=== PATIENT | male | born 1965 | race Hispanic/Latino ===

== ENCOUNTER 2016-11-17 11:47 | Inpatient (IN) | payer MEDICARE, MEDICAID ==
[2016-11-17] MEDS ORDERED: Piperacillin/Tazobact 3.375 gm 100 ML IVPB STA (12:06)
[2016-11-17] MEDS ORDERED: Vancomycin 1gm in NS 250ml 1 GM/250 ML BAG IVPB STA (12:06)
--- NOTE | 2016-11-17 12:09 | ED PDOC ---
Arrival/HPI - General Chief Complaint: Lower Extremity Problem/Injury Time Seen by Provider: 11/17/16 11:48 Historian: Patient - History of Present Illness Narrative History of Present Illness (Text): 11/17/16 12:00 Andrew Bonilla is a 50 year old male, whose past medical history includes psoriasis and crohn's disease, present to the emergency department complaining of a wound on the posterior of his right leg. Patient reports he noticed the wound yesterday. Patient denies fall, trauma, chest pain, fever, shortness of breath, or other complaints. PMD: Dr. 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) Other/Comment: slight speech impediment - Renal Hx Renal Disorder: No - Endocrine/Metabolic Hx Endocrine Disorders: No - Hematological/Oncological Hx Blood Disorders: Yes Other/Comment: hypogammaglobuanemia - Integumentary Hx Dermatological Disorder: Yes Hx Psoriasis: Yes - Musculoskeletal/Rheumatological Hx Musculoskeletal Disorders: Yes Hx Arthritis: No Hx Falls: No Hx Unsteady Gait: Yes (walker) - Gastrointestinal Hx Gastrointestinal Disorders: Yes Hx Colostomy: Yes Hx Crohn's Disease: Yes (dx at 15 yrs old) - Genitourinary/Gynecological Hx Genitourinary Disorders: No - Psychiatric Hx Psychophysiologic Disorder: Yes Hx Depression: Yes Hx Substance Use: No - Surgical History Other/Comment: Colonoscopy, Right chest wall port placement, colostomy - Anesthesia Hx Anesthesia: Yes - Suicidal Assessment Feels Threatened In Home Enviroment: No Family/Social History - Physician Review Nursing Documentation Reviewed: Yes Family/Social History: Unknown Family HX Smoking Status: Former Smoker Hx Alcohol Use: No Hx Substance Use: No Allergies/Home Meds Allergies/Adverse Reactions: Allergies homeopathic substance (from Rosario) Allergy (Intermediate, Uncoded 11/17/16 15: 26) [facility] SOAP Allergy (Uncoded 11/17/16 15:26) RASH Home Medications: Home Meds Medication Instructions Recorded Confirmed Amitriptyline HCl [Amitriptyline 10 mg PO HS 07/15/11 11/17/16 HCl] Bupropion HCl [Bupropion HCl Xl] 150 mg PO DAILY 07/15/11 11/17/16 QUEtiapine [SEROquel XR] 200 mg PO HS 07/15/11 11/17/16 Magnesium Oxide [Mag-Ox] 400 mg PO DAILY 09/18/13 11/17/16 Potassium Chloride [K-Dur 20] 0 meq PO .UNK 09/30/15 11/17/16 Mesalamine ER Cap [Pentasa] 500 mg PO QID 11/17/16 11/17/16 Ranitidine HCl [Ranitidine HCl] 150 mg PO BID 11/17/16 11/17/16 Review of Systems - Review of Systems Constitutional: absent: Fevers Respiratory: absent: SOB Cardiovascular: absent: Chest Pain Gastrointestinal: absent: Abdominal Pain, Vomiting Skin: Other (wound on posterior right leg) Physical Exam Vital Signs Reviewed: Yes Vital Signs Temp Pulse Resp BP Pulse Ox 11/17/16 14:32 94 H 18 118/76 100 11/17/16 11:59 98.8 F 78 16 116/77 100 Temperature: Afebrile Blood Pressure: Normal Pulse: Regular Respiratory Rate: Normal Appearance: Positive for: Well-Appearing, Non-Toxic, Comfortable Pain Distress: None Mental Status: Positive for: Alert and Oriented X 3 - Systems Exam Head: Present: Atraumatic, Normocephalic Pupils: Present: PERRL Extroacular Muscles: Present: EOMI Conjunctiva: Present: Normal Respiratory/Chest: Present: Clear to Auscultation, Good Air Exchange. No: Respiratory Distress, Accessory Muscle Use Cardiovascular: Present: Regular Rate and Rhythm, Normal S1, S2. No: Murmurs Abdomen: Present: Normal Bowel Sounds. No: Tenderness, Distention, Peritoneal Signs Lower Extremity: Present: Normal Inspection Neurological: Present: GCS=15, CN II-XII Intact, Speech Normal Skin: Present: Warm, Dry, Normal Color, Erythematous (around wound posterior right leg), Other (2cm necrotic wound and sorrounding erythema on posterior right leg). No: Rashes Psychiatric: Present: Alert, Oriented x 3, Normal Insight, Normal Concentration Medical Decision Making ED Course and Treatment: 11/17/16 12:50 X-ray Tibia/Fibula: Creator: Juana Sal FINDINGS: BONES: No fracture or destructive lesion. No periosteal reaction. JOINT SPACES: Unremarkable. OTHER FINDINGS: No subcutaneous gas noted. The specific site of patient's right leg wound is not known IMPRESSION: Unremarkable radiographs of the right tibia and fibula. - Lab Interpretations Microbiology Results: Microbiology Results 11/17/16 12:50 Blood S.aureus & Coag-Neg Staph PNA FISH - Final 11/17/16 12:50 Blood Blood Culture - Preliminary Gram Positive Cocci 11/17/16 12:50 Blood Gram Stain - Final Lab Results: 11/17/16 12:56 11/17/16 12:56 Lab Results 11/17/16 12:56: Hemoglobin A1c 5.6 11/17/16 12:56: Sodium 141, Potassium 4.2, Chloride 105, Carbon Dioxide 26, Anion Gap 14, BUN 14, Creatinine 1.0, Est GFR ( Amer) > 60, Est GFR (Non- Af Amer) > 60, Random Glucose 102, Calcium 8.8, Total Bilirubin 0.8, AST 41, ALT 37, Alkaline Phosphatase 79, Total Protein 7.3, Albumin 4.1, Globulin 3.2, Albumin/Globulin Ratio 1.3 11/17/16 12:56: PT 11.7, INR 1.08, APTT 62.0 H 11/17/16 12:56: WBC 6.0, RBC 4.23, Hgb 13.2 L, Hct 37.6 L, MCV 88.9, MCH 31.2, MCHC 35.1, RDW 13.2, Plt Count 137, MPV 10.5, Gran % 70.9 H, Lymph % (Auto) 19.1 L, Union % (Auto) 7.9 H, Eos % (Auto) 1.8, Baso % (Auto) 0.3, Gran # 4.22, Lymph # 1.1 L, Union # 0.5, Eos # 0.1, Baso # 0.02 I have reviewed the lab results: Yes - RAD Interpretation Radiology Orders: 11/17/16 12:06 TIBIA FIBULA RIGHT [RAD] Stat Call Worker Person: Radiologist - Medication Orders Current Medication Orders: Acetaminophen (Tylenol 325mg Tab) 650 mg PO Q4H PRN PRN Reason: Pain, Mild (1-3) Last Admin: 10/05/17 06:42 Dose: 650 mg MAR Pain/Vitals Document 11/18/16 06:42 PCO (Rec: 11/18/16 06:43 PCO [place] [id number]) Pain Reassessment Is This A Pain ReAssessment? No Sleep Is patient sleeping during reassessment? No Presence of Pain Presence of Pain No Vitals Temperature (97.6 F-99.6 F) 100.3 F Temperature Source Oral Amitriptyline HCl (Elavil) 10 mg PO HS SANTINO Last Admin: 11/17/16 22:23 Dose: 10 mg Bupropion HCl (Wellbutrin Xl) 150 mg PO DAILY SANTINO Last Admin: 11/18/16 10:16 Dose: 150 mg Famotidine (Pepcid) 20 mg PO 1000,2200 SANTINO Vancomycin HCl (Vancomycin 1gm) 1 gm in 250 mls @ 167 mls/hr IVPB Q12H SANTINO PRN Reason: Protocol Stop: 12/16/16 13:46 Last Admin: 11/18/16 14:25 Dose: 167 mls/hr eMAR Start Stop Document 11/18/16 14:25 AJ (Rec: 11/18/16 14:25 [place] [facility] [id number] Intravenous Solution Start Date 11/18/16 Start Time 14:25 Mesalamine (Pentasa) 500 mg PO QID SANTINO Last Admin: 11/18/16 14:25 Dose: 500 mg Quetiapine Fumarate (Seroquel Xr) 200 mg PO HS SANTINO PRN Reason: Protocol Last Admin: 11/17/16 21:45 Dose: 200 mg Behavioural Document 11/17/16 21:45 PCO (Rec: 11/17/16 21:45 PCO [facility] [id number] Maintenance Maintenance Dose Yes Nonmedicinal Nonmedicinal Interventions Redirect Behavior Behavior for Medication: Anxiety Re-Assess: Reassess Psych Meds Document 11/17/16 22:45 PCO (Rec: 11/18/16 06:31 PCO [place] [id number]) Reassess Psych Med Effective Tramadol HCl (Ultram) 50 mg PO TID PRN PRN Reason: Pain, moderate (4-7) Last Admin: 11/17/16 21:44 Dose: 50 mg MAR Pain Assessment Document 11/17/16 21:44 PCO (Rec: 11/17/16 21:45 PCO [facility] [id number] Pain Reassessment Is this a pain reassessment? No Sleep Is patient sleeping during reassessment? No Presence of Pain Presence of Pain Yes Pain Scale Used Pain Scale Used Numeric Location Left, Right or Bilateral Right Pain Location Body Site Leg Description Description Intermittent Intensity of Pain at present 7 Acceptable Level of Pain 0/10 Radiation Location no Variations/Patterns sharp at times Pain Behavior Facial Grimacing Aggravating Factors Exercise/Activity Alleviating Factors/Management Medication Techniques Relaxation Techniques Inactivity Alleviating Factors Inactivity Effects of Pain can't concentrate Triamcinolone Acetonide (Triamcinolone 0.25% Oint) 0 gm TOP BID SANTINO Last Admin: 11/18/16 10:14 Dose: 1 applic Discontinued Medications Vancomycin HCl (Vancomycin 1gm) 1 gm in 250 mls @ 167 mls/hr IVPB STAT STA PRN Reason: Protocol Stop: 11/17/16 13:35 Last Admin: 11/17/16 14:15 Dose: 167 mls/hr eMAR Start Stop Document 11/17/16 14:15 GMD (Rec: 11/17/16 14:16 GMD [facility] [id number] Intravenous Solution Start Date 11/17/16 Start Time 14:16 End Date 11/17/16 End time 15:46 Total Infusion Time 90 Piperacillin Sod/Tazobactam Sod (Zosyn 3.375 In Ns 100ml) 100 mls @ 200 mls/hr IVPB STAT STA PRN Reason: Protocol Stop: 11/17/16 12:35 Last Admin: 11/17/16 13:28 Dose: 200 mls/hr eMAR Start Stop Document 11/17/16 13:28 GMD (Rec: 11/17/16 13:28 GMD [facility] [id number] Intravenous Solution Start Date 11/17/16 Start Time 13:28 End Date 11/17/16 End time 13:58 Total Infusion Time 30 Vancomycin HCl (Vancomycin 1gm) 1 gm in 250 mls @ 167 mls/hr IVPB DAILY SANTINO PRN Reason: Protocol Last Admin: 11/18/16 10:15 Dose: 167 mls/hr eMAR Start Stop Document 11/18/16 10:15 AJ (Rec: 11/18/16 10:15 AJ [id number]) Intravenous Solution Start Date 10/05/17 Start Time 10:15 Piperacillin Sod/Tazobactam Sod (Zosyn 3.375 In Ns 100ml) 100 mls @ 200 mls/hr IVPB Q6 SANTINO PRN Reason: Protocol Stop: 11/18/16 00:29 Last Admin: 11/17/16 23:52 Dose: 200 mls/hr eMAR Start Stop Document 11/17/16 23:52 PCO (Rec: 11/17/16 23:53 PCO [facility] [id number]) Intravenous Solution Start Date 11/17/16 Start Time 23:52 End Date 11/18/16 End time 00:55 Total Infusion Time 63 Pneumococcal Polyvalent Vaccine (Pneumovax 23 Vaccine) 0.5 ml IM .ONCE ONE Stop: 11/17/16 19:00 - Scribe Statement The provider has reviewed the documentation as recorded by the Ritika Simon Provider Scribe Attestation: All medical record entries made by the Scribe were at my direction and personally dictated by me. I have reviewed the chart and agree that the record accurately reflects my personal performance of the history, physical exam, medical decision making, and the department course for this patient. I have also personally directed, reviewed, and agree with the discharge instructions and disposition. Disposition/Present on Arrival - Present on Arrival Any Indicators Present on Arrival: No History of DVT/PE: No History of Uncontrolled Diabetes: No Urinary Catheter: No History of Decub. Ulcer: No History Surgical Site Infection Following: None - Disposition Have Diagnosis and Disposition been Completed?: Yes Diagnosis: Cellulitis, Leg ulcer Disposition: HOSPITALIZED Disposition Time: 05:00 Condition: STABLE
--- NOTE | 2016-11-17 12:47 | RAD ---
PROCEDURE: Radiographs of the right tibia and fibula. HISTORY: leg wound COMPARISON: None available. TECHNIQUE: Frontal and lateral views obtained. FINDINGS: BONES: No fracture or destructive lesion. No periosteal reaction. JOINT SPACES: Unremarkable. OTHER FINDINGS: No subcutaneous gas noted. The specific site of patient's right leg wound is not known IMPRESSION: Unremarkable radiographs of the right tibia and fibula.
[2016-11-17 13:01] LABS: BASO # 0.02 K/mm3 (0.0-2.0); BASO % 0.3 % (0.0-3.0); EOS # 0.1 (0.0-0.7); EOS % 1.8 % (1.5-5.0); GRAN # 4.22 (1.4-6.5); GRAN % 70.9 % (50.0-68.0); HEMATOCRIT 37.6 % (42.0-52.0); LYMPH # 1.1 (1.2-3.4); LYMPH % 19.1 % (22.0-35.0); MEAN CELL VOLUME 88.9 fl (80.0-105.0); MEAN CORPUSCULAR HEMOGLOBIN 31.2 pg (25.0-35.0); MEAN CORPUSCULAR HGB CONC 35.1 g/dl (31.0-37.0); MEAN PLATELET VOLUME 10.5 fl (7.0-11.0); MONO # 0.5 (0.1-0.6); MONO % 7.9 % (1.0-6.0); RED CELL DISTRIBUTION WIDTH 13.2 % (11.5-14.5)
[2016-11-17 13:11] LABS: ALB/GLOB RATIO 1.3 (1.1-1.8); ALKALINE PHOSPHATASE 79 U/L (38-126); ALT/SGPT 37 U/L (7-56); AST/SGOT 41 U/L (17-59); BILIRUBIN,TOTAL 0.8 mg/dL (0.2-1.3); BLOOD UREA NITROGEN 14 mg/dL (7-21); CALCIUM 8.8 mg/dL (8.4-10.5); CARBON DIOXIDE 26 mmol/L (21-33); CHLORIDE 105 mmol/L (98-107); GFR AFRICAN-AMERICAN > 60; GLUCOSE,RANDOM 102 mg/dL (70-110); POTASSIUM 4.2 mmol/L (3.6-5.0); SODIUM 141 mmol/L (132-148); TOTAL PROTEIN 7.3 g/dL (5.8-8.3)
[2016-11-17 13:40] LABS: INR 1.08 (0.93-1.08)
--- NOTE | 2016-11-17 15:51 | CP.PCM.HP ---
History of Present Illness - History of Present Illness History of Present Illness: cc: right leg wound HPI: Patient is a 50yo male with past medical history of Crohn's disease s/p colostomy, Susac syndrome treated with IVIG, Psoriasis and hypogammaglobulinemia that presents c/o right lower extremity wound. He reports first noticing the wound 3 days prior and denied any known trauma to the area. He denied trying any over the counter medications for the wound. He reported that the wound is tender to touch. Denied chest pain, palpitations, SOB, abdominal pain, nausea, vomiting, fever, chills, cough. 12point ROS as per HPI above, otherwise negative PMHx: Susac syndrome, cerebral vasculitis, depression, Crohn's disease s/p colostomy, psoriasis and hypogammaglobulinemia PSHx: colectomy Allergy: rosario: rash, italian spring soap Medications: Reviewed and as per EMR Family Hx: Reviewed, noncontributory Social Hx: Former smoker, quit ~5 years ago, denies alcohol and illicit drug use ; Unemployed Present on Admission - Present on Admission Any Indicators Present on Admission: No Past Patient History - Past Social History Smoking Status: Former Smoker - CARDIAC Hx Cardiac Disorders: Yes Hx Peripheral Edema: Yes - PULMONARY Hx Respiratory Disorders: No - NEUROLOGICAL Other/Comment: susac syndrom dx 11 yrs ago, cerebral vasculitis - HEENT Hx HEENT Problems: Yes 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) Other/Comment: slight speech impediment - RENAL Hx Chronic Kidney Disease: No - ENDOCRINE/METABOLIC Hx Endocrine Disorders: No - HEMATOLOGICAL/ONCOLOGICAL Hx Blood Disorders: Yes Other/Comment: hypogammaglobuanemia - INTEGUMENTARY Hx Dermatological Problems: Yes Hx Psoriasis: Yes - MUSCULOSKELETAL/RHEUMATOLOGICAL Hx Musculoskeletal Disorders: Yes Hx Arthritis: No Hx Falls: No Hx Unsteady Gait: Yes (walker) - GASTROINTESTINAL Hx Gastrointestinal Disorders: Yes Hx Colostomy: Yes Hx Crohn's Disease: Yes (dx at 15 yrs old) - GENITOURINARY/GYNECOLOGICAL Hx Genitourinary Disorders: No - PSYCHIATRIC Hx Psychophysiologic Disorder: Yes Hx Depression: Yes Hx Substance Use: No - SURGICAL HISTORY Other/Comment: Colonoscopy, Right chest wall port placement, colostomy - ANESTHESIA Hx Anesthesia: Yes Meds Allergies/Adverse Reactions: Allergies Allergy/AdvReac Type Severity Reaction Status Date / Time homeopathic substance (from Allergy Intermediate RASH Uncoded 11/17/16 15:26 Rosario) [facility] SOAP Allergy RASH Uncoded 11/17/16 15:26 Physical Exam - Constitutional Appears: No Acute Distress, Unkempt - Head Exam Head Exam: ATRAUMATIC, NORMAL INSPECTION, NORMOCEPHALIC - Eye Exam Eye Exam: EOMI, PERRL - ENT Exam ENT Exam: Mucous Membranes Moist - Neck Exam Neck exam: Positive for: Normal Inspection - Respiratory Exam Respiratory Exam: Clear to Auscultation Bilateral. absent: Rales, Rhonchi, Wheezes - Cardiovascular Exam Cardiovascular Exam: RRR, +S1, +S2. absent: Gallop, JVD, Rubs, Systolic Murmur - GI/Abdominal Exam GI & Abdominal Exam: Soft. absent: Distended, Firm, Guarding, Rebound, Tenderness - Extremities Exam Additional comments: right posterior lower extremity eschar - Neurological Exam Neurological exam: Alert, CN II-XII Intact, Oriented x3 - Psychiatric Exam Psychiatric exam: Normal Affect, Normal Mood - Skin Skin Exam: Dry, Intact, Normal Color, Warm Results - Vital Signs Recent Vital Signs: Last Vital Signs Temp 98.8 F 11/17/16 11:59 Pulse 94 H 11/17/16 14:32 Resp 18 11/17/16 14:32 BP 118/76 11/17/16 14:32 Pulse Ox 100 11/17/16 14:32 - Labs Result Diagrams: 11/17/16 12:56 11/17/16 12:56 Assessment & Plan - Assessment and Plan (Free Text) Plan: 50yo male with history of Crohn's disease, Psoriasis, Susac syndrome, cerebral vasculitis and depression presents c/o right lower extremity wound 1. Right lower extremity wound -Blood and wound cultures pending -afebrile, no leukocytosis -Currently on Vancomycin and Zosyn for broad spectrum coverage pending cultures -A1C pending -Tibia/fibula xray negative; see full report -ID (Dr. Clay) and Surgery (Dr. Hinkle) consulted 2. Crohn's disease -Continue with Pentasa 3. Susac syndrome -Patient follows up with Dr. López for IVIG treatment 4. Depression -Continue home seroquel, buproprion and amitriptyline Patient seen and case discussed with attending, Dr. López - Date & Time Date: 11/17/16 Time: 15:56
--- NOTE | 2016-11-17 17:01 | CP.PCM.CON ---
History of Present Illness - History of Present Illness History of Present Illness: Surgery Consult Note for Dr. Yoo (covering Dr. Hinkle) Consulted for Infected Leg Ulcer HPI: Patient is a 50M who presents with a 3cm x 3cm ulcer on the RLE. He noticed it 3 days ago. He has been complain of pain on and around the wound. He states it began as a red bleeding ulcer that progressed to a black eschar. Describes the pain as sharp. Pain has been continuous since its onset. Currently the wound has a eshar overlying it making it unstagable. PMH: Susac syndrome, cerebral vasculitis, depression, Crohn's disease, psoriasis and hypogammaglobulinemia PSH: Multiple colon resections for Crohns with colostomy. 2 port placement R/L subclavian. Only R subclavian port is currently placed FH: Diabtetes in the father SH: 1ppd smoker for 5 years, quit 2 years ago, Former drinker in the distant past, no illegal drug use Meds: See MAR Allergies: None Review of Systems - Constitutional Constitutional: As Per HPI - EENT Eyes: As Per HPI Ears: As Per HPI Nose/Mouth/Throat: As Per HPI - Cardiovascular Cardiovascular: As Per HPI - Respiratory Respiratory: As Per HPI - Gastrointestinal Gastrointestinal: As Per HPI - Genitourinary Genitourinary: As Per HPI - Reproductive: Male Reproductive:Male: As Per HPI - Musculoskeletal Musculoskeletal: As Per HPI - Integumentary Integumentary: As Per HPI - Neurological Neurological: As Per HPI - Psychiatric Psychiatric: As Per HPI - Endocrine Endocrine: As Per HPI - Hematologic/Lymphatic Hematologic: As Per HPI Past Patient History - Past Social History Smoking Status: Former Smoker - CARDIAC Hx Cardiac Disorders: Yes Hx Peripheral Edema: Yes - PULMONARY Hx Respiratory Disorders: No - NEUROLOGICAL Other/Comment: susac syndrom dx 11 yrs ago, cerebral vasculitis - HEENT Hx HEENT Problems: Yes 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) Other/Comment: slight speech impediment - RENAL Hx Chronic Kidney Disease: No - ENDOCRINE/METABOLIC Hx Endocrine Disorders: No - HEMATOLOGICAL/ONCOLOGICAL Hx Blood Disorders: Yes Other/Comment: hypogammaglobuanemia - INTEGUMENTARY Hx Dermatological Problems: Yes Hx Psoriasis: Yes - MUSCULOSKELETAL/RHEUMATOLOGICAL Hx Musculoskeletal Disorders: Yes Hx Arthritis: No Hx Falls: No Hx Unsteady Gait: Yes (walker) - GASTROINTESTINAL Hx Gastrointestinal Disorders: Yes Hx Colostomy: Yes Hx Crohn's Disease: Yes (dx at 15 yrs old) - GENITOURINARY/GYNECOLOGICAL Hx Genitourinary Disorders: No - PSYCHIATRIC Hx Psychophysiologic Disorder: Yes Hx Depression: Yes Hx Substance Use: No - SURGICAL HISTORY Other/Comment: Colonoscopy, Right chest wall port placement, colostomy - ANESTHESIA Hx Anesthesia: Yes Meds Allergies/Adverse Reactions: Allergies Allergy/AdvReac Type Severity Reaction Status Date / Time homeopathic substance (from Allergy Intermediate RASH Uncoded 11/17/16 15:26 Rosario) [facility] SOAP Allergy RASH Uncoded 11/17/16 15:26 - Medications Medications: Current Medications Amitriptyline HCl (Elavil) 10 mg PO HS SANTINO Bupropion HCl (Wellbutrin Xl) 150 mg PO DAILY SANTINO Vancomycin HCl (Vancomycin 1gm) 1 gm in 250 mls @ 167 mls/hr IVPB DAILY SANTINO PRN Reason: Protocol Piperacillin Sod/Tazobactam Sod (Zosyn 3.375 In Ns 100ml) 100 mls @ 200 mls/hr IVPB Q6 SANTINO PRN Reason: Protocol Stop: 11/18/16 00:29 Mesalamine (Pentasa) 500 mg PO QID SANTINO Quetiapine Fumarate (Seroquel Xr) 200 mg PO HS SANTINO PRN Reason: Protocol Physical Exam - Constitutional Appears: Non-toxic, No Acute Distress - Head Exam Head Exam: ATRAUMATIC, NORMAL INSPECTION, NORMOCEPHALIC - Eye Exam Eye Exam: EOMI Pupil Exam: NORMAL ACCOMODATION - ENT Exam ENT Exam: Mucous Membranes Moist Additional comments: hearing aids - Neck Exam Neck exam: Positive for: Normal Inspection - Respiratory Exam Respiratory Exam: Clear to Auscultation Bilateral, Wheezes, NORMAL BREATHING PATTERN - Cardiovascular Exam Cardiovascular Exam: REGULAR RHYTHM - GI/Abdominal Exam GI & Abdominal Exam: Normal Bowel Sounds, Soft. absent: Distended, Tenderness Additional comments: RLQ coolostomy, Midline incision - Extremities Exam Extremities exam: Positive for: tenderness. Negative for: joint swelling Additional comments: 3cm x 3cm RLE wound with Eschar and surrounding erythema and warmth - Neurological Exam Neurological exam: Alert, Oriented x3 - Psychiatric Exam Psychiatric exam: Normal Affect, Normal Mood - Skin Skin Exam: Dry, Normal Color, Warm Additional comments: multiple psoriatic patches Results - Vital Signs Recent Vital Signs: Last Vital Signs Temp 98.2 F 11/17/16 16:12 Pulse 64 11/17/16 16:12 Resp 20 11/17/16 16:12 BP 165/59 H 11/17/16 16:12 Pulse Ox 97 11/17/16 16:12 - Labs Result Diagrams: 11/17/16 12:56 11/17/16 12:56 Assessment & Plan - Assessment and Plan (Free Text) Assessment: 50M with a RLE wound Plan: * santyl QD * Antibiotic management per primary team * Further reccs per Dr. Fredo Nance PGY1 - Date & Time Date: 11/17/16 Time: 17:11
[2016-11-17] MEDS: Mesalamine ER Cap 500 MG PO SCH ×2 (17:18→22:23)
[2016-11-17] MEDS: Piperacillin/Tazobact 3.375 gm 100 ML IVPB SCH ×2 (17:19→23:52)
[2016-11-17 18:59] VITALS: BMI 25.8
[2016-11-17] MEDS ORDERED: Pneumococcal 23-Valent Vaccine IM ONE (18:59)
[2016-11-17] MEDS: QUEtiapine 200 mg XR Tab PO SCH (21:45)
[2016-11-17] MEDS: Triamcinolone 0.025% Oint(15 gm) TOP SCH (22:24)
[2016-11-18 07:12] LABS: BASO # 0.01 K/mm3 (0.0-2.0); BASO % 0.2 % (0.0-3.0); EOS # 0.1 (0.0-0.7); EOS % 1.5 % (1.5-5.0); GRAN # 3.24 (1.4-6.5); GRAN % 79.1 % (50.0-68.0); HEMATOCRIT 38.2 % (42.0-52.0); LYMPH # 0.4 (1.2-3.4); LYMPH % 10.2 % (22.0-35.0); MEAN CELL VOLUME 89.7 fl (80.0-105.0); MEAN CORPUSCULAR HEMOGLOBIN 30.3 pg (25.0-35.0); MEAN CORPUSCULAR HGB CONC 33.8 g/dl (31.0-37.0); MEAN PLATELET VOLUME 10.2 fl (7.0-11.0); MONO # 0.4 (0.1-0.6); RED CELL DISTRIBUTION WIDTH 13.4 % (11.5-14.5); WHITE BLOOD COUNT 4.1 10^3/ul (4.5-11.0)
[2016-11-18 07:29] LABS: ALB/GLOB RATIO 1.3 (1.1-1.8); ALKALINE PHOSPHATASE 69 U/L (38-126); ALT/SGPT 34 U/L (7-56); AST/SGOT 37 U/L (17-59); BILIRUBIN,TOTAL 1.3 mg/dL (0.2-1.3); BLOOD UREA NITROGEN 15 mg/dL (7-21); CALCIUM 8.8 mg/dL (8.4-10.5); CARBON DIOXIDE 25 mmol/L (21-33); CHLORIDE 102 mmol/L (98-107); GFR AFRICAN-AMERICAN > 60; GLUCOSE,RANDOM 92 mg/dL (70-110); SODIUM 139 mmol/L (132-148); TOTAL PROTEIN 6.9 g/dL (5.8-8.3)
[2016-11-18 09:14] LABS: URINE BILIRUBIN NEGATIVE (NEGATIVE); URINE BLOOD TRACE-INTACT (NEGATIVE); URINE GLUCOSE (UA) NEGATIVE (NEGATIVE); URINE KETONE NEGATIVE (NEGATIVE); URINE LEUKOCYTE ESTERASE NEGATIVE Leu/uL (NEGATIVE); URINE PROTEIN NEGATIVE mg/dL (<30 mg/dL); URINE UROBILINOGEN 0.2 E.U./dL (<1 E.U./dL)
[2016-11-18 09:22] LABS: URINE APPEARANCE CLEAR (CLEAR); URINE COLOR YELLOW (YELLOW)
[2016-11-18 09:24] LABS: URINE RBC 0 - 2 /hpf (0-2); URINE WBC NEGATIVE /hpf (0-6)
[2016-11-18] MEDS ORDERED: Vancomycin 1gm in NS 250ml 1 GM/250 ML BAG IVPB SCH (10:00)
[2016-11-18] MEDS: Mesalamine ER Cap 500 MG PO SCH ×4 (10:14→22:08)
[2016-11-18] MEDS: Triamcinolone 0.025% Oint(15 gm) TOP SCH ×2 (10:14→17:24)
[2016-11-18] MEDS: buPROPion 150 mg/24 Hours XL Tab PO SCH (10:16)
--- NOTE | 2016-11-18 10:38 | CP.PCM.PN ---
Subjective - Date & Time of Evaluation Date of Evaluation: 11/18/16 Time of Evaluation: 10:35 - Subjective Subjective: Surgery Progress Note for Dr. Yoo (covering Dr. Hinkle) HPI: Patient seen and examined at bedside. Doing well with no complaints at this time. There was a scab on the wound yesterday that was pulled off and dressed. Denies any nausea, vomiting, diarrhea, Fever, chills Objective - Vital Signs/Intake and Output Vital Signs (last 24 hours): Temp Pulse Resp BP Pulse Ox 100.3 F H 105 H 20 122/74 96 11/18/16 08:00 11/18/16 08:00 11/18/16 08:00 11/18/16 08:00 11/18/16 08:00 Intake and Output: 11/18/16 11/18/16 06:59 18:59 Intake Total 720 Balance 720 - Medications Medications: Current Medications Acetaminophen (Tylenol 325mg Tab) 650 mg PO Q4H PRN PRN Reason: Pain, Mild (1-3) Last Admin: 11/18/16 06:42 Dose: 650 mg Amitriptyline HCl (Elavil) 10 mg PO HS [facility] Last Admin: 11/17/16 22:23 Dose: 10 mg Bupropion HCl (Wellbutrin Xl) 150 mg PO DAILY [facility] Last Admin: 11/18/16 10:16 Dose: 150 mg Vancomycin HCl (Vancomycin 1gm) 1 gm in 250 mls @ 167 mls/hr IVPB DAILY SANTINO PRN Reason: Protocol Last Admin: 11/18/16 10:15 Dose: 167 mls/hr Mesalamine (Pentasa) 500 mg PO QID [facility] Last Admin: 11/18/16 10:14 Dose: 500 mg Quetiapine Fumarate (Seroquel Xr) 200 mg PO HS [facility] PRN Reason: Protocol Last Admin: 11/17/16 21:45 Dose: 200 mg Tramadol HCl (Ultram) 50 mg PO TID PRN PRN Reason: Pain, moderate (4-7) Last Admin: 11/17/16 21:44 Dose: 50 mg Triamcinolone Acetonide (Triamcinolone 0.25% Oint) 0 gm TOP BID [facility] Last Admin: 11/18/16 10:14 Dose: 1 applic - Labs Labs: 11/18/16 06:30 11/18/16 06:30 PT 11.7 Seconds (9.9-11.8) 11/17/16 12:56 INR 1.08 (0.93-1.08) 11/17/16 12:56 APTT 62.0 Seconds (23.7-30.8) H 11/17/16 12:56 - Constitutional Appears: Non-toxic - Head Exam Head Exam: ATRAUMATIC, NORMAL INSPECTION, NORMOCEPHALIC - Eye Exam Eye Exam: EOMI Pupil Exam: NORMAL ACCOMODATION - ENT Exam ENT Exam: Mucous Membranes Moist - Respiratory Exam Respiratory Exam: Clear to Ausculation Bilateral, NORMAL BREATHING PATTERN - Cardiovascular Exam Cardiovascular Exam: REGULAR RHYTHM - GI/Abdominal Exam GI & Abdominal Exam: Soft, Normal Bowel Sounds. absent: Distended, Tenderness Additional comments: colosotmy - Extremities Exam Extremities Exam: Tenderness (tenderness around RLE ulcer, erythema still present with increased warmth, dressing clean dry and intact). absent: Joint Swelling - Back Exam Back Exam: absent: CVA tenderness (L), CVA tenderness (R) - Neurological Exam Neurological Exam: Alert, Awake, Oriented x3 - Psychiatric Exam Psychiatric exam: Normal Affect, Normal Mood - Skin Skin Exam: Dry, Normal Color (erythematous), Rash (multiple psoriatic lesions), Warm Assessment and Plan - Assessment and Plan (Free Text) Assessment: 50M with RLE wound Plan: * silvadene QD * Daily dressing changes * truman wrap for compression * antibiotics per medicine team
[2016-11-18] MEDS: Vancomycin 1gm in NS 250ml 1 GM/250 ML BAG IVPB SCH (14:25)
[2016-11-18] MEDS: Silver Sulfadiazine 1% Cream (25 gm) TP SCH (16:38)
--- NOTE | 2016-11-18 17:37 | CP.PCM.PN ---
Subjective - Date & Time of Evaluation Date of Evaluation: 11/18/16 Time of Evaluation: 17:34 - Subjective Subjective: Progress note for Dr. López's service Patient seen and examined at bedside this morning. No acute overnight events or new complaints reported. Denies chest pain, palpitations, SOB. Objective - Vital Signs/Intake and Output Vital Signs (last 24 hours): Temp Pulse Resp BP Pulse Ox 100.3 F H 105 H 20 122/74 96 11/18/16 08:00 11/18/16 08:00 11/18/16 08:00 11/18/16 08:00 11/18/16 08:00 Intake and Output: 11/18/16 11/18/16 06:59 18:59 Intake Total 720 480 Balance 720 480 - Medications Medications: Current Medications Acetaminophen (Tylenol 325mg Tab) 650 mg PO Q4H PRN PRN Reason: Pain, Mild (1-3) Last Admin: 11/18/16 06:42 Dose: 650 mg Amitriptyline HCl (Elavil) 10 mg PO HS [facility] Last Admin: 11/17/16 22:23 Dose: 10 mg Bupropion HCl (Wellbutrin Xl) 150 mg PO DAILY [facility] Last Admin: 11/18/16 10:16 Dose: 150 mg Famotidine (Pepcid) 20 mg PO 1000,2200 [facility] Vancomycin HCl (Vancomycin 1gm) 1 gm in 250 mls @ 167 mls/hr IVPB Q12H [facility] PRN Reason: Protocol Stop: 12/16/16 13:46 Last Admin: 11/18/16 14:25 Dose: 167 mls/hr Mesalamine (Pentasa) 500 mg PO QID [facility] Last Admin: 11/18/16 17:23 Dose: 500 mg Quetiapine Fumarate (Seroquel Xr) 200 mg PO HS [facility] PRN Reason: Protocol Last Admin: 11/17/16 21:45 Dose: 200 mg Silver Sulfadiazine (Silvadene 1% 25 Gm) 0 gm TP DAILY [facility] Last Admin: 11/18/16 16:38 Dose: Not Given Tramadol HCl (Ultram) 50 mg PO TID PRN PRN Reason: Pain, moderate (4-7) Last Admin: 11/17/16 21:44 Dose: 50 mg Triamcinolone Acetonide (Triamcinolone 0.25% Oint) 0 gm TOP BID [facility] Last Admin: 11/18/16 17:24 Dose: Not Given - Labs Labs: 11/18/16 06:30 11/18/16 06:30 PT 11.7 Seconds (9.9-11.8) 11/17/16 12:56 INR 1.08 (0.93-1.08) 11/17/16 12:56 APTT 62.0 Seconds (23.7-30.8) H 11/17/16 12:56 - Constitutional Appears: No Acute Distress - Head Exam Head Exam: ATRAUMATIC, NORMAL INSPECTION, NORMOCEPHALIC - Eye Exam Eye Exam: EOMI, PERRL - ENT Exam ENT Exam: Mucous Membranes Moist - Neck Exam Neck Exam: Normal Inspection - Respiratory Exam Respiratory Exam: Clear to Ausculation Bilateral. absent: Rales, Rhonchi, Wheezes - Cardiovascular Exam Cardiovascular Exam: +S1, +S2. absent: Gallop, Rubs, Murmur - GI/Abdominal Exam GI & Abdominal Exam: Distended, Soft. absent: Firm, Guarding, Rigid, Tenderness , Rebound Additional comments: colostomy; site clean dry and intact - Extremities Exam Additional comments: psoriatic patches posterior right lower extremity wound - Neurological Exam Neurological Exam: Alert, Awake, Oriented x3 - Psychiatric Exam Psychiatric exam: Normal Affect, Normal Mood - Skin Skin Exam: Dry, Intact, Warm Assessment and Plan - Assessment and Plan (Free Text) Plan: 50yo male with history of Crohn's disease, Psoriasis, Susac syndrome, cerebral vasculitis and depression presents c/o right lower extremity wound 1. Right lower extremity wound -Febrile overnight with a Tmax of 102.5 for which he has been receiving tylenol , no leukocytosis -Blood culture growing gram positive cocci in one bottle; repeat cultures pending -Echocardiogram ordered to rule out vegetation/endocarditis -Wound cultures pending -Currently on Vancomycin per ID recommendations -Tibia/fibula xray negative; see full report -Tylenol PRN for fevers -ID (Dr. Clay) and Surgery (Dr. Hinkle) consulted 2. Crohn's disease -Continue with Pentasa 3. Susac syndrome -Patient follows up with Dr. López for IVIG treatment 4. Depression -Continue home seroquel, buproprion and amitriptyline Patient seen and case discussed with attending, Dr. López
--- NOTE | 2016-11-18 18:27 | CON ---
DATE: 11/18/2016 LOCATION: The patient is seen in [facility], bed 2. CHIEF COMPLAINT: Fever times several days. 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 Infectious Disease consultation requested. The patient denies any chest pain. He is having chills. He denies any shortness of breath. No abdominal pain, diarrhea, or constipation. 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 Infectious Disease consultation requested. REVIEW OF SYSTEMS: Reveals the patient has fevers and occasional chills. ALLERGIES: THE PATIENT IS ALLERGIC TO [place] AND [place] SOAP. MEDICATIONS: Include ranitidine, Seroquel, potassium, bupropion and amitriptyline. PHYSICAL EXAMINATION: GENERAL: He is in bed, appearing disheveled and difficulty communicating with. VITAL SIGNS: Temperature of 102.5, respiratory rate of 18, heart rate of 105, blood pressure 160/59. HEENT: Unremarkable. NECK: Supple. LUNGS: Decreased breath sounds. HEART: Normal S1 and S2. ABDOMEN: Soft, nontender. LABORATORY DATA: Reveals white count of 6.0, hemoglobin of 13, platelets of 137 and platelets are down to 103 today. Coagulation is noted. Chemistries reveal a BUN of 15, creatinine of 1.1. Urinalysis is noted. Microbiology reveals a blood culture one bottle is positive for coag negative staph by PNA-FISH. Further identification and sensitivity is pending. The second blood culture is no growth at 24 hours. The right leg wound culture is pending. The patient has an x-ray of the tibia and the fibula, which was unremarkable. No evidence of fracture. Review of the from 01/2016 reveals the patient had a colonoscopy and biopsy at that time by Dr. Okeefe. He also had a chest x-ray at that time in 01/2016, which showed no active disease and a right-sided Port-A-Cath as noted. ASSESSMENT AND PLAN: A 50-year-old male with psoriasis, Crohn's disease, Susac syndrome and depression with temperature of 102.5, heart rate of 105, positive right ankle cellulitis, positive blood cultures with a right chest wall Port-A-Cath and thrombocytopenia. 1. Severe sepsis with Gram-positive cocci bacteremia, although in 1 bottle, must rule out Port-A-Cath infection versus contamination with a right leg cellulitis. We will start the patient on vancomycin. We will order a sedimentation rate and C-reactive protein. Repeat blood cultures x2. Order an echo, human immunodeficiency virus test. Check on identification and sensitive of the Gram-positive cocci and we will follow closely with you. Overall, prognosis is poor for this patient. Ned Clay MD
[2016-11-18] MEDS ORDERED: Benzocaine/Menthol (Cepacol) Lozenge MT STA (19:57)
[2016-11-18] MEDS: QUEtiapine 200 mg XR Tab PO SCH (22:08)
[2016-11-19] MEDS: Vancomycin 1gm in NS 250ml 1 GM/250 ML BAG IVPB SCH ×2 (00:48→17:40)
[2016-11-19] MEDS: Silver Sulfadiazine 1% Cream (25 gm) TP SCH (07:15)
[2016-11-19] MEDS: Triamcinolone 0.025% Oint(15 gm) TOP SCH ×2 (07:15→18:05)
[2016-11-19 07:41] LABS: BASO # 0.01 K/mm3 (0.0-2.0); BASO % 0.2 % (0.0-3.0); EOS # 0.1 (0.0-0.7); EOS % 2.7 % (1.5-5.0); GRAN # 2.9 (1.4-6.5); GRAN % 60.9 % (50.0-68.0); HEMATOCRIT 38.7 % (42.0-52.0); LYMPH # 1.2 (1.2-3.4); LYMPH % 24.5 % (22.0-35.0); MEAN CELL VOLUME 90.2 fl (80.0-105.0); MEAN CORPUSCULAR HEMOGLOBIN 30.5 pg (25.0-35.0); MEAN CORPUSCULAR HGB CONC 33.9 g/dl (31.0-37.0); MEAN PLATELET VOLUME 10.2 fl (7.0-11.0); MONO # 0.6 (0.1-0.6); MONO % 11.7 % (1.0-6.0); RED CELL DISTRIBUTION WIDTH 13.4 % (11.5-14.5); WHITE BLOOD COUNT 4.8 10^3/ul (4.5-11.0)
[2016-11-19 07:49] LABS: ALB/GLOB RATIO 1.2 (1.1-1.8); ALKALINE PHOSPHATASE 74 U/L (38-126); ALT/SGPT 41 U/L (7-56); AST/SGOT 33 U/L (17-59); BILIRUBIN,TOTAL 0.9 mg/dL (0.2-1.3); BLOOD UREA NITROGEN 12 mg/dL (7-21); CALCIUM 9.2 mg/dL (8.4-10.5); CARBON DIOXIDE 25 mmol/L (21-33); CHLORIDE 106 mmol/L (98-107); GFR AFRICAN-AMERICAN > 60; GLUCOSE,RANDOM 104 mg/dL (70-110); SODIUM 143 mmol/L (132-148); TOTAL PROTEIN 7.2 g/dL (5.8-8.3)
--- NOTE | 2016-11-19 09:17 | CP.PCM.PN ---
Subjective - Date & Time of Evaluation Date of Evaluation: 11/19/16 Time of Evaluation: 09:06 - Subjective Subjective: Surgery progress note for Dr. Yoo Patient seen and examined at bedside. Patient resting comfortably in bed with no new complaints at this time. Patient says he feel like his wound is getting better. He denies fever, chills, chest pain, SOB, AP/N/V/D/C. Objective - Vital Signs/Intake and Output Vital Signs (last 24 hours): Temp Pulse Resp BP Pulse Ox 99.0 F 96 H 18 122/77 97 11/19/16 08:00 11/19/16 08:00 11/19/16 08:00 11/19/16 08:00 11/19/16 08:00 Intake and Output: 11/19/16 11/19/16 06:59 18:59 Intake Total 1080 Balance 1080 - Medications Medications: Current Medications Acetaminophen (Tylenol 325mg Tab) 650 mg PO Q4H PRN PRN Reason: Pain, Mild (1-3) Last Admin: 11/18/16 06:42 Dose: 650 mg Amitriptyline HCl (Elavil) 10 mg PO HS [facility] Last Admin: 11/18/16 22:08 Dose: 10 mg Bupropion HCl (Wellbutrin Xl) 150 mg PO DAILY [facility] Last Admin: 11/18/16 10:16 Dose: 150 mg Famotidine (Pepcid) 20 mg PO 1000,2200 [facility] Last Admin: 11/18/16 22:08 Dose: 20 mg Vancomycin HCl (Vancomycin 1gm) 1 gm in 250 mls @ 167 mls/hr IVPB 0600,1800 [facility] PRN Reason: Protocol Mesalamine (Pentasa) 500 mg PO QID [facility] Last Admin: 11/18/16 22:08 Dose: 500 mg Quetiapine Fumarate (Seroquel Xr) 200 mg PO HS [facility] PRN Reason: Protocol Last Admin: 11/18/16 22:08 Dose: 200 mg Silver Sulfadiazine (Silvadene 1% 25 Gm) 0 gm TP DAILY [facility] Last Admin: 11/18/16 16:38 Dose: Not Given Tramadol HCl (Ultram) 50 mg PO TID PRN PRN Reason: Pain, moderate (4-7) Last Admin: 11/17/16 21:44 Dose: 50 mg Triamcinolone Acetonide (Triamcinolone 0.25% Oint) 0 gm TOP BID [facility] Last Admin: 11/18/16 17:24 Dose: Not Given - Labs Labs: 11/19/16 07:36 11/19/16 07:36 PT 11.7 Seconds (9.9-11.8) 11/17/16 12:56 INR 1.08 (0.93-1.08) 11/17/16 12:56 APTT 62.0 Seconds (23.7-30.8) H 11/17/16 12:56 - Constitutional Appears: Non-toxic, No Acute Distress - Head Exam Head Exam: NORMAL INSPECTION - Eye Exam Eye Exam: EOMI - ENT Exam ENT Exam: Mucous Membranes Moist - Respiratory Exam Respiratory Exam: NORMAL BREATHING PATTERN. absent: Accessory Muscle Use, Respiratory Distress - Cardiovascular Exam Cardiovascular Exam: REGULAR RHYTHM. absent: Bradycardia, Tachycardia - GI/Abdominal Exam GI & Abdominal Exam: Soft. absent: Distended, Tenderness Additional comments: colostomy - Extremities Exam Extremities Exam: Tenderness (around RLE wound ) Additional comments: likely psoriatic wound of RLE with mild bleeding (possible auspitz sign) silvadene applied and dressing changed - Neurological Exam Neurological Exam: Alert, Awake - Psychiatric Exam Psychiatric exam: Normal Affect, Normal Mood - Skin Skin Exam: Dry, Rash (multiple psoriatic lesions ), Warm Assessment and Plan - Assessment and Plan (Free Text) Assessment: 50M with H psoriasis and RLE wound Plan: * Silvadene daily * Dressing changes with Vic wrap for compression daily * Will need to be set up with wound care clinic or home nursing for wound care * Continue abx per medicine team * Further recs per Dr. Yoo (covering for Dr. Hinkle) Leesa Leyva, PGY1
[2016-11-19] MEDS: Magnesium Oxide 400 mg Tab UD PO SCH (10:06)
[2016-11-19] MEDS: buPROPion 150 mg/24 Hours XL Tab PO SCH (10:07)
[2016-11-19] MEDS: Mesalamine ER Cap 500 MG PO SCH ×3 (10:07→23:01)
--- NOTE | 2016-11-19 10:39 | CP.PCM.CON ---
History of Present Illness - History of Present Illness History of Present Illness: Seen and examined at the bedside earlier today, the chart is reviewed. Request for GI consult is for abdominal distention/colostomy. HISTORY OF PRESENT ILLNESS: This is a 50-year-old male with a past medical history of Crohn's disease, status post colostomy, as well as Susac syndrome, cerebral vasculitis and hypogammaglobulinemia. he came to the emergency room for complaints of right lower extremity wound, had for 3 days. Patient denies fever, chills, nausea, vomiting, or abdominal pain. No SOB or chest pain. He is tolerating oral intake, he denies any overt GI bleed. His colostomy with liquid stool. PAST MEDICAL HISTORY: Crohn's disease, status post colostomy, Susac syndrome, cerebral vasculitis, hypogammaglobulinemia and psoriasis. The patient is hard of hearing. PAST SURGICAL HISTORY: Colectomy. Colonoscopy 02/03/2016 with biopsy. ALLERGIES: THE PATIENT IS ALLERGIC TO [place]ERRIES; HE GETS A RASH. SOCIAL HISTORY: The patient was a former smoker; he quit 2 years ago. Denies any ETOH or substance abuse. The patient uses a rolling walker to get around. MEDICATIONS: He is on Pentasa, omeprazole, Paxil, vitamin D, Seroquel, amitriptyline and potassium. FAMILY HISTORY: Unknown. REVIEW OF SYSTEMS: Systems were reviewed with positive findings. See HPI. Past Patient History - Past Social History Smoking Status: Former Smoker - CARDIAC Hx Cardiac Disorders: Yes Hx Peripheral Edema: Yes - PULMONARY Hx Respiratory Disorders: No - NEUROLOGICAL Other/Comment: susac syndrom dx 11 yrs ago, cerebral vasculitis - HEENT Hx HEENT Problems: Yes 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) Other/Comment: slight speech impediment - RENAL Hx Chronic Kidney Disease: No - ENDOCRINE/METABOLIC Hx Endocrine Disorders: No - HEMATOLOGICAL/ONCOLOGICAL Hx Blood Disorders: Yes Other/Comment: hypogammaglobuanemia - INTEGUMENTARY Hx Dermatological Problems: Yes Hx Psoriasis: Yes - MUSCULOSKELETAL/RHEUMATOLOGICAL Hx Musculoskeletal Disorders: Yes Hx Arthritis: No Hx Falls: No Hx Unsteady Gait: Yes (walker) - GASTROINTESTINAL Hx Gastrointestinal Disorders: Yes Hx Colostomy: Yes Hx Crohn's Disease: Yes (dx at 15 yrs old) - GENITOURINARY/GYNECOLOGICAL Hx Genitourinary Disorders: No - PSYCHIATRIC Hx Psychophysiologic Disorder: Yes Hx Depression: Yes Hx Substance Use: No - SURGICAL HISTORY Other/Comment: Colonoscopy, Right chest wall port placement, colostomy - ANESTHESIA Hx Anesthesia: Yes Meds Allergies/Adverse Reactions: Allergies Allergy/AdvReac Type Severity Reaction Status Date / Time homeopathic substance (from Allergy Intermediate RASH Uncoded 11/17/16 15:26 Rosario) [place] SOAP Allergy RASH Uncoded 11/17/16 15:26 - Medications Medications: Current Medications Acetaminophen (Tylenol 325mg Tab) 650 mg PO Q4H PRN PRN Reason: Pain, Mild (1-3) Last Admin: 11/18/16 06:42 Dose: 650 mg Amitriptyline HCl (Elavil) 10 mg PO HS [facility] Last Admin: 11/17/16 22:23 Dose: 10 mg Bupropion HCl (Wellbutrin Xl) 150 mg PO DAILY [facility] Last Admin: 11/18/16 10:16 Dose: 150 mg Vancomycin HCl (Vancomycin 1gm) 1 gm in 250 mls @ 167 mls/hr IVPB DAILY [facility] PRN Reason: Protocol Last Admin: 11/18/16 10:15 Dose: 167 mls/hr Mesalamine (Pentasa) 500 mg PO QID [facility] Last Admin: 11/18/16 10:14 Dose: 500 mg Quetiapine Fumarate (Seroquel Xr) 200 mg PO HS [facility] PRN Reason: Protocol Last Admin: 11/17/16 21:45 Dose: 200 mg Tramadol HCl (Ultram) 50 mg PO TID PRN PRN Reason: Pain, moderate (4-7) Last Admin: 11/17/16 21:44 Dose: 50 mg Triamcinolone Acetonide (Triamcinolone 0.25% Oint) 0 gm TOP BID [facility] Last Admin: 11/18/16 10:14 Dose: 1 applic Physical Exam - Constitutional Appears: No Acute Distress - Head Exam Head Exam: NORMOCEPHALIC - Eye Exam Eye Exam: Normal appearance. absent: Scleral icterus - ENT Exam ENT Exam: Mucous Membranes Moist - Neck Exam Neck exam: Positive for: Normal Inspection - Respiratory Exam Respiratory Exam: Clear to Auscultation Bilateral, NORMAL BREATHING PATTERN. absent: Respiratory Distress - Cardiovascular Exam Cardiovascular Exam: +S1, +S2 - GI/Abdominal Exam GI & Abdominal Exam: Normal Bowel Sounds, Soft. absent: Guarding, Rebound, Tenderness Additional comments: (+) colotomy w/stool. - Extremities Exam Extremities exam: Positive for: pedal edema. Negative for: calf tenderness Additional comments: right lower extremity with dressing, but appear to have surrounding erythema. - Neurological Exam Neurological exam: Alert, Oriented x3 - Skin Skin Exam: Dry, Warm Results - Vital Signs Recent Vital Signs: Last Vital Signs Temp 100.3 F H 11/18/16 08:00 Pulse 105 H 11/18/16 08:00 Resp 20 11/18/16 08:00 BP 122/74 11/18/16 08:00 Pulse Ox 96 11/18/16 08:00 - Labs Result Diagrams: 11/18/16 06:30 11/18/16 06:30 Labs: Laboratory Results - last 24 hr 11/18/16 11/18/16 11/18/16 06:30 06:30 09:04 WBC 4.1 L D RBC 4.26 Hgb 12.9 L Hct 38.2 L MCV 89.7 MCH 30.3 MCHC 33.8 RDW 13.4 Plt Count 103 L MPV 10.2 Gran % 79.1 H Lymph % (Auto) 10.2 L Pender % (Auto) 9.0 H Eos % (Auto) 1.5 Baso % (Auto) 0.2 Gran # 3.24 Lymph # 0.4 L Pender # 0.4 Eos # 0.1 Baso # 0.01 Sodium 139 Potassium 4.0 Chloride 102 Carbon Dioxide 25 Anion Gap 16 BUN 15 Creatinine 1.1 Est GFR ( Amer) > 60 Est GFR (Non-Af Amer) > 60 Random Glucose 92 Calcium 8.8 Total Bilirubin 1.3 AST 37 ALT 34 Alkaline Phosphatase 69 Total Protein 6.9 Albumin 3.9 Globulin 3.1 Albumin/Globulin Ratio 1.3 Urine Color Yellow Urine Appearance Clear Urine pH 6.0 Ur Specific [place] 1.025 Urine Protein Negative Urine Glucose (UA) Negative Urine Ketones Negative Urine Blood Trace-intact H Urine Nitrate Negative Urine Bilirubin Negative Urine Urobilinogen 0.2 Ur Leukocyte Esterase Negative Urine RBC 0 - 2 Urine WBC Negative Assessment & Plan - Assessment and Plan (Free Text) Assessment: Assessment: Right lower extremity wound differential to consider pyoderma gangrenosum Crohns Disease Susac Syndrome Cerebral vasculitis PLAN: on Vancomyocin IV start GI propylaxsis, Pepcid continue Pentasa FU blood,urine and wound culture diet as tolerated ID FU thank you for this consult and for allowing us to participate in your patient's care, further recommendations based upon clinical course. Seen and discussed with Dr. Okeefe.
[2016-11-19 17:09] VITALS: RESP 20
--- NOTE | 2016-11-19 18:14 | CP.PCM.PN ---
Subjective - Date & Time of Evaluation Date of Evaluation: 11/19/16 Time of Evaluation: 12:05 - Subjective Subjective: Comfortable, not in distress, afebrile. Objective - Vital Signs/Intake and Output Vital Signs (last 24 hours): Temp Pulse Resp BP Pulse Ox 99.0 F 96 H 18 122/77 97 11/19/16 08:00 11/19/16 08:00 11/19/16 08:00 11/19/16 08:00 11/19/16 08:00 Intake and Output: 11/19/16 11/19/16 06:59 18:59 Intake Total 1080 Balance 1080 - Medications Medications: Current Medications Acetaminophen (Tylenol 325mg Tab) 650 mg PO Q4H PRN PRN Reason: Pain, Mild (1-3) Last Admin: 11/18/16 06:42 Dose: 650 mg Amitriptyline HCl (Elavil) 10 mg PO HS [facility] Last Admin: 11/18/16 22:08 Dose: 10 mg Bupropion HCl (Wellbutrin Xl) 150 mg PO DAILY [facility] Last Admin: 11/19/16 10:07 Dose: 150 mg Famotidine (Pepcid) 20 mg PO 1000,2200 [facility] Last Admin: 11/19/16 10:07 Dose: 20 mg Vancomycin HCl (Vancomycin 1gm) 1 gm in 250 mls @ 167 mls/hr IVPB 0600,1800 [facility] PRN Reason: Protocol Magnesium Oxide (Mag-Ox) 400 mg PO DAILY [facility] Last Admin: 11/19/16 10:06 Dose: 400 mg Mesalamine (Pentasa) 500 mg PO QID [facility] Last Admin: 11/19/16 10:07 Dose: 500 mg Quetiapine Fumarate (Seroquel Xr) 200 mg PO [facility] PRN Reason: Protocol Last Admin: 11/18/16 22:08 Dose: 200 mg Silver Sulfadiazine (Silvadene 1% 25 Gm) 0 gm TP DAILY [facility] Last Admin: 11/19/16 07:15 Dose: 1 gm Tramadol HCl (Ultram) 50 mg PO TID PRN PRN Reason: Pain, moderate (4-7) Last Admin: 11/17/16 21:44 Dose: 50 mg Triamcinolone Acetonide (Triamcinolone 0.25% Oint) 0 gm TOP BID [facility] Last Admin: 11/18/16 17:24 Dose: Not Given - Labs Labs: 11/19/16 07:36 11/19/16 07:36 PT 11.7 Seconds (9.9-11.8) 11/17/16 12:56 INR 1.08 (0.93-1.08) 11/17/16 12:56 APTT 62.0 Seconds (23.7-30.8) H 11/17/16 12:56 - Constitutional Appears: Non-toxic, No Acute Distress - Head Exam Head Exam: NORMAL INSPECTION - Respiratory Exam Respiratory Exam: Decreased Breath Sounds Additional comments: right anterior chest wall port site intact - Cardiovascular Exam Cardiovascular Exam: +S1, +S2 - GI/Abdominal Exam GI & Abdominal Exam: Soft. absent: Tenderness Assessment and Plan - Assessment and Plan (Free Text) Plan: Assessment Severe sepsis due to coagulase negative staph bacteremia and right ankle cellulitis, R/O port-a-cath related infection Crohn's disease depression Susac syndrome (autoimmune disorder) psoriasis S/P right chest wall port-a-cath placement Plan Continue Vancomycin pending sensitivities of the coagulase negative staph in the blood; follow up repeat blood cx and 2D echo results - options would be port removal or antibiotic lock therapy together with IV antibiotics will continue to monitor clinically
[2016-11-19] MEDS: Benzocaine/Menthol (Cepacol) Lozenge MT PRN (19:22)
--- NOTE | 2016-11-19 20:03 | CARD ---
APPROVED REPORT EXAM: Two-dimensional and M-mode echocardiogram with Doppler and color Doppler. INDICATION Infection:Rule out subacute bacterial endocarditis 2D DIMENSIONS Left Atrium (2D)4.0 (1.6-4.0cm)IVSd1.4 (0.7-1.1cm) LVDd4.2 (3.9-5.9cm)PWd1.2 (0.7-1.1cm) LVDs2.8 (2.5-4.0cm)FS (%) 33.3 % LVEF (%)62.3 (>50%) M-Mode DIMENSIONS Aortic Root3.20 (2.2-3.7cm)Aortic Cusp Exc.1.70 (1.5-2.0cm) Aortic Valve AoV Peak Eljetzdf522.0cm/Hoang Peak GR.10mmHg Mitral Valve MV E Oruhphla24.2cm/sMV A Fbqnndtt882.0cm/sE/A ratio0.7 TDI E/Lateral E'0.0E/Medial E'0.0 Tricuspid Valve TR Peak [id number]/sRAP [id number] Peak Gr.15mmHg [id number] LEFT VENTRICLE The left ventricle is normal size. There is normal left ventricular wall thickness. The left ventricular function is normal. The left ventricular ejection fraction is within the normal range. There is normal LV segmental wall motion. Transmitral Doppler flow pattern is Grade I-abnormal relaxation pattern. RIGHT VENTRICLE The right ventricle is normal size. There is normal right ventricular wall thickness. The right ventricular systolic function is normal. ATRIA The left atrium is borderline dilated. The right atrium size is normal. AORTIC VALVE The aortic valve is not well visualized. There is trace aortic regurgitation. MITRAL VALVE The mitral valve is not well visualized. There is no mitral valve regurgitation noted. TRICUSPID VALVE There is trace tricuspid regurgitation. GREAT VESSELS The aortic root is normal in size. PERICARDIAL EFFUSION There is a trace circumferential pericardial effusion. <Conclusion> poor Echo window Valular structures are not well visualized Consider EDENILSON if clinically indicated
[2016-11-19] MEDS: QUEtiapine 200 mg XR Tab PO SCH (23:01)
[2016-11-20 06:26] VITALS: BP 133/70; PULSE 82; TEMP 98.1; O2SAT 94
[2016-11-20] MEDS: Vancomycin 1gm in NS 250ml 1 GM/250 ML BAG IVPB SCH (06:36)
[2016-11-20 08:07] LABS: BASO # 0.02 K/mm3 (0.0-2.0); BASO % 0.4 % (0.0-3.0); EOS # 0.2 (0.0-0.7); EOS % 3.8 % (1.5-5.0); GRAN # 2.49 (1.4-6.5); HEMATOCRIT 36.4 % (42.0-52.0); LYMPH # 1.3 (1.2-3.4); LYMPH % 28.8 % (22.0-35.0); MEAN CELL VOLUME 89.9 fl (80.0-105.0); MEAN CORPUSCULAR HEMOGLOBIN 30.9 pg (25.0-35.0); MEAN CORPUSCULAR HGB CONC 34.3 g/dl (31.0-37.0); MEAN PLATELET VOLUME 10.2 fl (7.0-11.0); MONO # 0.5 (0.1-0.6); RED CELL DISTRIBUTION WIDTH 13.3 % (11.5-14.5); WHITE BLOOD COUNT 4.5 10^3/ul (4.5-11.0)
[2016-11-20 08:29] LABS: ALB/GLOB RATIO 1.2 (1.1-1.8); ALKALINE PHOSPHATASE 68 U/L (38-126); ALT/SGPT 37 U/L (7-56); AST/SGOT 32 U/L (17-59); BILIRUBIN,TOTAL 0.7 mg/dL (0.2-1.3); BLOOD UREA NITROGEN 11 mg/dL (7-21); CALCIUM 9.1 mg/dL (8.4-10.5); CARBON DIOXIDE 26 mmol/L (21-33); CHLORIDE 104 mmol/L (98-107); GFR AFRICAN-AMERICAN > 60; GLUCOSE,RANDOM 99 mg/dL (70-110); POTASSIUM 3.8 mmol/L (3.6-5.0); SODIUM 141 mmol/L (132-148); TOTAL PROTEIN 6.8 g/dL (5.8-8.3)
--- NOTE | 2016-11-20 09:18 | CP.PCM.PN ---
Subjective - Date & Time of Evaluation Date of Evaluation: 11/20/16 Time of Evaluation: 09:13 - Subjective Subjective: Surgery progress note for Dr. Yoo (covering for Dr. Hinkle) Patient seen and examined at bedside. Patient resting comfortably in bed with no new complaints at this time. Patient had no acute events overnight. He says he is tired and keeps falling asleep for most of the exam. Patient denies fever , chills, leg pain, LE swelling, N/V/D. Objective - Vital Signs/Intake and Output Vital Signs (last 24 hours): Temp Pulse Resp BP Pulse Ox 98.1 F 82 20 133/70 94 L 11/20/16 08:22 11/20/16 08:22 11/20/16 08:22 11/20/16 08:22 11/20/16 08:22 Intake and Output: 11/20/16 11/20/16 06:59 18:59 Intake Total 477 Balance 477 - Medications Medications: Current Medications Acetaminophen (Tylenol 325mg Tab) 650 mg PO Q4H PRN PRN Reason: Pain, Mild (1-3) Last Admin: 11/18/16 06:42 Dose: 650 mg Amitriptyline HCl (Elavil) 10 mg PO HS [facility] Last Admin: 11/19/16 23:02 Dose: 10 mg Benzocaine/Menthol (Cepacol Sore Throat) 1 patricia MT Q2H PRN PRN Reason: Sore Throat Last Admin: 11/19/16 19:22 Dose: 1 patricia Bupropion HCl (Wellbutrin Xl) 150 mg PO DAILY [facility] Last Admin: 11/19/16 10:07 Dose: 150 mg Famotidine (Pepcid) 20 mg PO 1000,2200 [facility] Last Admin: 11/19/16 23:02 Dose: 20 mg Vancomycin HCl (Vancomycin 1gm) 1 gm in 250 mls @ 167 mls/hr IVPB 0600,1800 [facility] PRN Reason: Protocol Last Admin: 11/20/16 06:36 Dose: 167 mls/hr Magnesium Oxide (Mag-Ox) 400 mg PO DAILY [facility] Last Admin: 11/19/16 10:06 Dose: 400 mg Mesalamine (Pentasa) 1,000 mg PO QID [facility] Last Admin: 11/19/16 23:01 Dose: 1,000 mg Quetiapine Fumarate (Seroquel Xr) 200 mg PO HS [facility] PRN Reason: Protocol Last Admin: 11/19/16 23:01 Dose: 200 mg Silver Sulfadiazine (Silvadene 1% 25 Gm) 0 gm TP DAILY [facility] Last Admin: 11/19/16 07:15 Dose: 1 gm Tramadol HCl (Ultram) 50 mg PO TID PRN PRN Reason: Pain, moderate (4-7) Last Admin: 11/17/16 21:44 Dose: 50 mg Triamcinolone Acetonide (Triamcinolone 0.25% Oint) 0 gm TOP BID [facility] Last Admin: 11/19/16 18:05 Dose: Not Given - Labs Labs: 11/20/16 07:45 11/20/16 07:45 PT 11.7 Seconds (9.9-11.8) 11/17/16 12:56 INR 1.08 (0.93-1.08) 11/17/16 12:56 APTT 62.0 Seconds (23.7-30.8) H 11/17/16 12:56 - Constitutional Appears: Non-toxic, No Acute Distress - Head Exam Head Exam: NORMAL INSPECTION - Eye Exam Eye Exam: EOMI - ENT Exam ENT Exam: Mucous Membranes Moist - Respiratory Exam Respiratory Exam: NORMAL BREATHING PATTERN. absent: Accessory Muscle Use, Respiratory Distress - Cardiovascular Exam Cardiovascular Exam: REGULAR RHYTHM. absent: Bradycardia, Tachycardia Additional comments: colostomy with bag in place - GI/Abdominal Exam GI & Abdominal Exam: Soft. absent: Distended, Tenderness - Extremities Exam Extremities Exam: absent: Calf Tenderness Additional comments: likely psoriatic wound of RLE on the medial aspect of the lower leg silvadene applied and dressing changed - Neurological Exam Neurological Exam: Alert, Awake - Psychiatric Exam Psychiatric exam: Normal Affect, Normal Mood - Skin Skin Exam: Dry, Rash (Multiple psoriatic lesions ), Warm Assessment and Plan - Assessment and Plan (Free Text) Assessment: 50M with PMH psoriasis and RLE wound Plan: * Dressing changes with silvadene and Vic wrap for compression daily * Will need to be set up with wound care clinic or home nursing for wound care * Continue abx per medicine team * Further recs per Dr. Yoo (covering for Dr. Hinkle) Leesa Leyva, PGY1
[2016-11-20] MEDS: Benzocaine/Menthol (Cepacol) Lozenge MT PRN (09:47)
[2016-11-20] MEDS: Magnesium Oxide 400 mg Tab UD PO SCH (09:47)
[2016-11-20] MEDS: Mesalamine ER Cap 500 MG PO SCH ×2 (09:47→13:31)
[2016-11-20] MEDS: buPROPion 150 mg/24 Hours XL Tab PO SCH (09:48)
[2016-11-20] MEDS: Triamcinolone 0.025% Oint(15 gm) TOP SCH (09:50)
[2016-11-20] MEDS: Silver Sulfadiazine 1% Cream (25 gm) TP SCH (13:00)
--- NOTE | 2016-11-20 14:54 | CP.PCM.PN ---
Subjective - Date & Time of Evaluation Date of Evaluation: 11/20/16 Time of Evaluation: 12:25 - Subjective Subjective: Comfortable, no fevers. Objective - Vital Signs/Intake and Output Vital Signs (last 24 hours): Temp Pulse Resp BP Pulse Ox 98.1 F 82 20 133/70 94 L 11/20/16 08:22 11/20/16 08:22 11/20/16 08:22 11/20/16 08:22 11/20/16 08:22 Intake and Output: 11/20/16 11/20/16 06:59 18:59 Intake Total 477 Balance 477 - Medications Medications: Current Medications Acetaminophen (Tylenol 325mg Tab) 650 mg PO Q4H PRN PRN Reason: Pain, Mild (1-3) Last Admin: 11/18/16 06:42 Dose: 650 mg Amitriptyline HCl (Elavil) 10 mg PO HS [facility] Last Admin: 11/19/16 23:02 Dose: 10 mg Benzocaine/Menthol (Cepacol Sore Throat) 1 patricia MT Q2H PRN PRN Reason: Sore Throat Last Admin: 11/20/16 09:47 Dose: 1 patricia Bupropion HCl (Wellbutrin Xl) 150 mg PO DAILY [facility] Last Admin: 11/20/16 09:48 Dose: 150 mg Famotidine (Pepcid) 20 mg PO 1000,2200 [facility] Last Admin: 11/20/16 09:47 Dose: 20 mg Vancomycin HCl (Vancomycin 1gm) 1 gm in 250 mls @ 167 mls/hr IVPB 0600,1800 [facility] PRN Reason: Protocol Last Admin: 11/20/16 06:36 Dose: 167 mls/hr Magnesium Oxide (Mag-Ox) 400 mg PO DAILY [facility] Last Admin: 11/20/16 09:47 Dose: 400 mg Mesalamine (Pentasa) 1,000 mg PO QID [facility] Last Admin: 11/20/16 09:47 Dose: 1,000 mg Quetiapine Fumarate (Seroquel Xr) 200 mg PO HS [facility] PRN Reason: Protocol Last Admin: 11/19/16 23:01 Dose: 200 mg Silver Sulfadiazine (Silvadene 1% 25 Gm) 0 gm TP DAILY [facility] Last Admin: 11/19/16 07:15 Dose: 1 gm Tramadol HCl (Ultram) 50 mg PO TID PRN PRN Reason: Pain, moderate (4-7) Last Admin: 11/17/16 21:44 Dose: 50 mg Triamcinolone Acetonide (Triamcinolone 0.25% Oint) 0 gm TOP BID [facility] Last Admin: 11/20/16 09:50 Dose: 1 applic - Labs Labs: 11/20/16 07:45 11/20/16 07:45 PT 11.7 Seconds (9.9-11.8) 11/17/16 12:56 INR 1.08 (0.93-1.08) 11/17/16 12:56 APTT 62.0 Seconds (23.7-30.8) H 11/17/16 12:56 - Constitutional Appears: Non-toxic, No Acute Distress - Head Exam Head Exam: NORMAL INSPECTION - ENT Exam ENT Exam: Mucous Membranes Moist - Neck Exam Neck Exam: absent: Meningismus - Respiratory Exam Respiratory Exam: Decreased Breath Sounds - Cardiovascular Exam Cardiovascular Exam: +S1, +S2 - GI/Abdominal Exam GI & Abdominal Exam: Soft. absent: Tenderness Assessment and Plan - Assessment and Plan (Free Text) Plan: Assessment Severe sepsis due to methicillin-resistant coagulase negative staph bacteremia and right ankle cellulitis, R/O port-a-cath related infection Crohn's disease depression Susac syndrome (autoimmune disorder) psoriasis S/P right chest wall port-a-cath placement Plan Continue Vancomycin; follow up 2D echo results and will also order ultrasound of the upper extremity to rule out DVT - options would be port removal or antibiotic lock therapy together with IV antibiotics will continue to monitor clinically
--- NOTE | 2016-11-20 15:17 | US ---
PROCEDURE: Right upper extremity venous US CLINICAL HISTORY: Arm pain and swelling Evaluate for deep venous thrombosis. PHYSICIAN(S): Jose Suero M.D FINDINGS: The visualized rightinternal jugular vein is sonographically normal and compressible. No evidence of obstruction or thrombus is seen. The visualized segments of the right subclavian vein are patent with normal waveforms. No sonographic evidence of obstruction or thrombosis is seen. The visualized deep venous system of the proximal right upper extremity is sonographically normal and compressible. IMPRESSION: 1. No sonographic evidence for deep venous thrombosis in the visualized segments of the right upper extremity.
--- NOTE | 2016-11-20 20:06 | PN ---
DATE: 11/20/2016 SUBJECTIVE: This patient is seen and evaluated earlier. The patient is really much improved. No fever. PHYSICAL EXAMINATION VITAL SIGNS: Temperature is 98.1, blood pressure is 133/70, respirations 20, O2 saturation 94%. HEENT: Atraumatic and anicteric. NECK: Supple. HEART: S1 and S2. LUNGS: Bilateral air entry present. ABDOMEN: Soft. There is no mass palpable or tenderness. LABORATORY DATA: Hemoglobin 12.5, hematocrit 36.4, WBC 4.5, platelets 124. Chemistry is essentially unremarkable. IMPRESSION: This 50-year-old patient with Susac syndrome, Crohn's disease status post colostomy, admitted with severe sepsis, methicillin-resistant Staph,coagulase negative staph bacteriemia, slight ankle cellulitis, rule out Port-A-Cath related infection, and psoriasis. RECOMMENDATIONS: 1. The patient is on Pentasa. I have discussed with Dr. López the dose has now been adjusted to 4 g a day. The patient is planned to be transferred to TCU for antibiotic therapy. 2. Chronic GERD. The patient has been on ranitidine. Discussed with Dr. López. Thank you very much for allowing us to participate in the care of the patient. Eric Okeefe MD MTDD
--- NOTE | 2016-11-22 14:58 | PQF GENQUE ---
11/22/16 Dr. López, ID consult of 11/18, as well as notes of 11/19 and 11/20 state "rule out Port-A- Cath infection." Was Port-A-Cath infection ruled out, ruled in, undetermined? Thank you. Clarification of your documentation is requested to better reflect the severity of illness and intensity of treatment of your patient. Indicators present [] Specify: [] [] Specify: [] [] Specify: [] [] Specify: [] Location in the medical record that reflects the above clinical findings: [] Treatment Provided: [] PHYSICIAN'S RESPONSE Based on your medical judgment of the clinical indicators outlined above please clarify the following: [] Practitioner response [] If unable to determine, please check the box, sign and date. Present On Admission (POA) Indicator: [] Present at the time of admission [] Not present at the time of admission [] Clinically Undetermined In responding to this query, please exercise your independent professional judgment. The fact that a question is asked does not imply that any particular answer is desired or expected. Thank you for your clarification on this documentation. If you have any questions please call:[ ] * Thank you, [ ] global director air and climate change ANUPAMA
--- NOTE | 2016-11-22 15:02 | PQF GENQUE ---
11/22/16 Dr. López, GI consult of 11/18 states "to consider pyoderma gangrenosum." Was pyoderma gangrenosum ruled out, ruled in, undetermined. If ruled in, was this present on admission? Thank you. Clarification of your documentation is requested to better reflect the severity of illness and intensity of treatment of your patient. Indicators present [] Specify: [] [] Specify: [] [] Specify: [] [] Specify: [] Location in the medical record that reflects the above clinical findings: [] Treatment Provided: [] PHYSICIAN'S RESPONSE Based on your medical judgment of the clinical indicators outlined above please clarify the following: [] Practitioner response [] If unable to determine, please check the box, sign and date. Present On Admission (POA) Indicator: [] Present at the time of admission [] Not present at the time of admission [] Clinically Undetermined In responding to this query, please exercise your independent professional judgment. The fact that a question is asked does not imply that any particular answer is desired or expected. Thank you for your clarification on this documentation. If you have any questions please call:[ ] * Thank you, [ ] fish straightener ANUPAMA
== END 2016-11-20 15:49 | DRG 314 ==
LOC: ED 11:47 → ERH 13:21 → 5RSO 15:10
PROVIDERS: ADMIT Family Medicine; ATTEND Family Medicine
DX: T80.211A Bloodstream infection due to central venous catheter, initial encounter (principal); A41.1 Sepsis due to other specified staphylococcus; G93.49 Other encephalopathy; D80.1 Nonfamilial hypogammaglobulinemia; D69.6 Thrombocytopenia, unspecified; K50.90 Crohn's disease, unspecified, without complications; R65.20 Severe sepsis without septic shock; L97.319 Non-pressure chronic ulcer of right ankle with unspecified severity; L03.115 Cellulitis of right lower limb; L40.9 Psoriasis, unspecified; F32.89 Other specified depressive episodes; H91.92 Unspecified hearing loss, left ear; I77.6 Arteritis, unspecified; Z79.899 Other long term (current) drug therapy; Z87.891 Personal history of nicotine dependence; Z93.3 Colostomy status; R26.81 Unsteadiness on feet; Z88.8 Allergy status to other drugs, medicaments and biological substances; Z91.048 Other nonmedicinal substance allergy status; R40.2412 Glasgow coma scale score 13-15, at arrival to emergency department; Z56.0 Unemployment, unspecified

== ENCOUNTER 2016-11-20 15:52 | Inpatient (IN) | payer OTHER, MEDICAID ==
[2016-11-20] MEDS: Mesalamine ER Cap 500 MG PO SCH ×2 (17:57→22:03)
[2016-11-20] MEDS: Vancomycin 1gm in NS 250ml 1 GM/250 ML BAG IVPB SCH (18:06)
[2016-11-20] MEDS: Triamcinolone 0.025% Oint(15 gm) TOP SCH (18:07)
[2016-11-20] MEDS: QUEtiapine 200 mg XR Tab PO SCH (22:04)
[2016-11-21] MEDS: Vancomycin 1gm in NS 250ml 1 GM/250 ML BAG IVPB SCH ×2 (05:10→18:23)
--- NOTE | 2016-11-21 09:02 | CP.PCM.PN ---
Subjective - Date & Time of Evaluation Date of Evaluation: 11/21/16 Time of Evaluation: 08:55 - Subjective Subjective: Surgery Progress note. Dr. Yoo Pt seen and examined at bedside. No acute events overnight. No F/C. Pain well tolerated. Denies any new complaints. Objective - Vital Signs/Intake and Output Vital Signs (last 24 hours): Temp Pulse Resp BP Pulse Ox 98.1 F 92 H 15 139/84 97 11/20/16 18:16 11/20/16 18:16 11/20/16 18:16 11/20/16 18:16 11/20/16 17:27 - Medications Medications: Current Medications Acetaminophen (Tylenol 325mg Tab) 650 mg PO Q4H PRN; Protocol PRN Reason: Pain, Mild (1-3) Amitriptyline HCl (Elavil) 10 mg PO HS [facility] PRN Reason: Protocol Last Admin: 11/20/16 22:04 Dose: 10 mg Benzocaine/Menthol (Cepacol Sore Throat) 1 patricia MT Q2H PRN; Protocol PRN Reason: Sore Throat Bupropion HCl (Wellbutrin Xl) 150 mg PO DAILY [facility] PRN Reason: Protocol Famotidine (Pepcid) 20 mg PO 1000,2200 [facility] PRN Reason: Protocol Last Admin: 11/20/16 22:04 Dose: 20 mg Vancomycin HCl (Vancomycin 1gm) 1 gm in 250 mls @ 167 mls/hr IVPB Q12H [facility] PRN Reason: Protocol Last Admin: 11/21/16 05:10 Dose: 167 mls/hr Magnesium Oxide (Mag-Ox) 400 mg PO DAILY [facility] PRN Reason: Protocol Mesalamine (Pentasa) 1,000 mg PO QID [facility] PRN Reason: Protocol Last Admin: 11/20/16 22:03 Dose: 1,000 mg Quetiapine Fumarate (Seroquel Xr) 200 mg PO HS [facility] PRN Reason: Protocol Last Admin: 11/20/16 22:04 Dose: 200 mg Silver Sulfadiazine (Silvadene 1% 25 Gm) 0 gm TP DAILY [facility] PRN Reason: Protocol Tramadol HCl (Ultram) 50 mg PO Q8 PRN; Protocol PRN Reason: Pain, moderate (4-7) Triamcinolone Acetonide (Triamcinolone 0.25% Oint) 0 gm TOP BID [facility] PRN Reason: Protocol Last Admin: 11/20/16 18:07 Dose: 1 applic - Constitutional Appears: Well, No Acute Distress - Head Exam Head Exam: ATRAUMATIC, NORMAL INSPECTION, NORMOCEPHALIC - Eye Exam Eye Exam: EOMI, Normal appearance - ENT Exam ENT Exam: Mucous Membranes Moist - Neck Exam Neck Exam: Full ROM - Respiratory Exam Respiratory Exam: NORMAL BREATHING PATTERN. absent: Chest Wall Tenderness, Rhonchi, Wheezes - Cardiovascular Exam Cardiovascular Exam: RRR, +S1, +S2. absent: JVD - GI/Abdominal Exam GI & Abdominal Exam: Soft. absent: Guarding, Rigid, Tenderness - Extremities Exam Additional comments: Right lower extremity rodriguez excoriations, mild bleeding. Psoriatic lesions noted. Dressing clean, dry and intact. Replaced this morning. - Psychiatric Exam Psychiatric exam: Normal Affect, Normal Mood Assessment and Plan - Assessment and Plan (Free Text) Assessment: 50yo M with PMHx including psoriasis here with RLE wound - Silvadene prn - Continue wound care as needed: dry guaze, Kerlix, Vic wrap. - IV Abx as per primary - Medical management as per primary - No acute surgical intervention at this time. Please re-consult as necessary. Further recs as per Dr. Yoo (Covering for Manan) Milad Mcclendon PGY1 surgery pager: [phone]
[2016-11-21] MEDS: buPROPion 150 mg/24 Hours XL Tab PO SCH (11:00)
[2016-11-21] MEDS: Silver Sulfadiazine 1% Cream (25 gm) TP SCH (11:00)
[2016-11-21] MEDS: Mesalamine ER Cap 500 MG PO SCH ×4 (11:00→21:17)
[2016-11-21] MEDS: Triamcinolone 0.025% Oint(15 gm) TOP SCH ×3 (11:00→18:25)
[2016-11-21] MEDS: Magnesium Oxide 400 mg Tab UD PO SCH (11:00)
--- NOTE | 2016-11-21 16:54 | CP.PCM.CON ---
History of Present Illness - History of Present Illness History of Present Illness: 50 year old male with PMH of Crohn's disease, depression, Susac syndrome ( autoimmune disorder), psoriasis, S/P right chest wall port-a-cath placement was initially admitted in [facility] because of right foot swelling and cellulitis. He was also found to have coagulase negative staph bacteremia and is on antibiotics for these. He is now transferred to [facility] for continued medical therapy and physical rehab. Infectious Diseases consult is requested to continue his antibiotic therapy. Currently the patient is comfortable, less pain in his foot, no fever or chills, no headache or dizziness, no chest pain, no SOB, no nausea or vomiting, no abdominal pain, no diarrhea, no dysuria. 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) Other/Comment: slight speech impediment - RENAL Hx Chronic Kidney Disease: No - ENDOCRINE/METABOLIC Hx Endocrine Disorders: No - HEMATOLOGICAL/ONCOLOGICAL Hx Blood Disorders: Yes Other/Comment: hypogammaglobuanemia - INTEGUMENTARY Hx Dermatological Problems: Yes Hx Psoriasis: Yes - MUSCULOSKELETAL/RHEUMATOLOGICAL Hx Musculoskeletal Disorders: Yes Hx Arthritis: No Hx Falls: No Hx Unsteady Gait: Yes (walker) - GASTROINTESTINAL Hx Gastrointestinal Disorders: Yes Hx Colostomy: Yes Hx Crohn's Disease: Yes (dx at 15 yrs old) - GENITOURINARY/GYNECOLOGICAL Hx Genitourinary Disorders: No - PSYCHIATRIC Hx Psychophysiologic Disorder: Yes Hx Depression: Yes Hx Substance Use: No - SURGICAL HISTORY Other/Comment: Colonoscopy, Right chest wall port placement, colostomy - ANESTHESIA Hx Anesthesia: Yes Meds Allergies/Adverse Reactions: Allergies Allergy/AdvReac Type Severity Reaction Status Date / Time homeopathic substance (from Allergy Intermediate RASH Uncoded 11/17/16 15:26 Rosario) [facility] SOAP Allergy RASH Uncoded 11/17/16 15:26 - Medications Medications: Current Medications Acetaminophen (Tylenol 325mg Tab) 650 mg PO Q4H PRN; Protocol PRN Reason: Pain, Mild (1-3) Amitriptyline HCl (Elavil) 10 mg PO HS [facility] PRN Reason: Protocol Benzocaine/Menthol (Cepacol Sore Throat) 1 patricia MT Q2H PRN; Protocol PRN Reason: Sore Throat Bupropion HCl (Wellbutrin Xl) 150 mg PO DAILY [facility] PRN Reason: Protocol Famotidine (Pepcid) 20 mg PO 1000,2200 [facility] PRN Reason: Protocol Vancomycin HCl (Vancomycin 1gm) 1 gm in 250 mls @ 167 mls/hr IVPB BID [facility] PRN Reason: Protocol Magnesium Oxide (Mag-Ox) 400 mg PO DAILY [facility] PRN Reason: Protocol Mesalamine (Pentasa) 1,000 mg PO QID [facility] PRN Reason: Protocol Quetiapine Fumarate (Seroquel Xr) 200 mg PO HS [facility] PRN Reason: Protocol Silver Sulfadiazine (Silvadene 1% 25 Gm) 0 gm TP DAILY [facility] PRN Reason: Protocol Tramadol HCl (Ultram) 50 mg PO TID [facility] PRN Reason: Protocol Triamcinolone Acetonide (Triamcinolone 0.25% Oint) 0 gm TOP BID [facility] PRN Reason: Protocol Physical Exam - Constitutional Appears: Non-toxic, No Acute Distress - Head Exam Head Exam: NORMAL INSPECTION - ENT Exam ENT Exam: Mucous Membranes Moist - Neck Exam Neck exam: Negative for: Meningismus - Respiratory Exam Respiratory Exam: Decreased Breath Sounds Additional comments: right anterior chest wall port site clean and non-tender - Cardiovascular Exam Cardiovascular Exam: +S1, +S2 - GI/Abdominal Exam GI & Abdominal Exam: Soft. absent: Tenderness - Extremities Exam Additional comments: right foot with bandages in place Assessment & Plan - Assessment and Plan (Free Text) Plan: Assessment Severe sepsis due to methicillin-resistant coagulase negative staph bacteremia and right ankle cellulitis with MSSA, R/O port-a-cath related infection Crohn's disease depression Susac syndrome (autoimmune disorder) psoriasis S/P right chest wall port-a-cath placement Plan Continue Vancomycin; follow up 2D echo results; ultrasound of the upper extremity did not show DVT - options would be port removal or antibiotic lock therapy together with IV antibiotics - target 10-14 days of antibiotics (Day repeat blood cx on Nov.18 are now showing one of 2 sets still positive for gram positive cocci will continue to monitor clinically
--- NOTE | 2016-11-21 19:24 | PN ---
DATE: 11/21/2016 SUBJECTIVE: This patient was seen and evaluated earlier today. This patient was tolerating the diet. Feels much better. PHYSICAL EXAMINATION: VITAL SIGNS: Afebrile, temperature is 98.4, pulse 85, and blood pressure 121/75. HEENT: Atraumatic. Anicteric. NECK: Supple. HEART: S1 and S2 heard. LUNGS: Bilateral air entry present. ABDOMEN: Soft and colostomy is present in the left lower quadrant area. EXTREMITIES: Has a dressing of the right leg area present. SKIN: The patient has history of psoriasis. NEUROLOGICAL: Alert, oriented, and moves all the extremities. LABORATORY DATA: No recent labs. IMPRESSION: This 50-year-old patient with Susac syndrome, history of Crohn disease status post colon resection, and has left lower quadrant colostomy. The patient did have a small bowel resection and also enterostomy in the past. The patient now has right foot cellulitis. The patient also has Staphylococcus bacteremia, coagulase negative. RECOMMENDATION: Continue the antibiotics as per ID. Continue the Pentasa. The patient is keen on reversal of the colostomy. The patient will be referred to a tertiary colorectal center for consideration if their family is agreeable. Thank you very much for allowing us to participate in the care of the patient. Eric Okeefe MD
[2016-11-21] MEDS: QUEtiapine 200 mg XR Tab PO SCH (21:17)
[2016-11-22] MEDS: Vancomycin 1gm in NS 250ml 1 GM/250 ML BAG IVPB SCH (05:46)
[2016-11-22 08:29] LABS: BASO # 0.02 K/mm3 (0.0-2.0); BASO % 0.4 % (0.0-3.0); EOS # 0.2 (0.0-0.7); EOS % 3.8 % (1.5-5.0); GRAN # 2.89 (1.4-6.5); GRAN % 57.5 % (50.0-68.0); HEMATOCRIT 39.9 % (42.0-52.0); LYMPH # 1.5 (1.2-3.4); LYMPH % 29.4 % (22.0-35.0); MEAN CELL VOLUME 89.3 fl (80.0-105.0); MEAN CORPUSCULAR HEMOGLOBIN 30.6 pg (25.0-35.0); MEAN CORPUSCULAR HGB CONC 34.3 g/dl (31.0-37.0); MEAN PLATELET VOLUME 9.9 fl (7.0-11.0); MONO # 0.5 (0.1-0.6); MONO % 8.9 % (1.0-6.0)
[2016-11-22 08:37] LABS: ALB/GLOB RATIO 1.3 (1.1-1.8); ALKALINE PHOSPHATASE 80 U/L (38-126); ALT/SGPT 57 U/L (7-56); AST/SGOT 43 U/L (17-59); BILIRUBIN,TOTAL 0.9 mg/dL (0.2-1.3); BLOOD UREA NITROGEN 13 mg/dL (7-21); CALCIUM 9.7 mg/dL (8.4-10.5); CARBON DIOXIDE 29 mmol/L (21-33); CHLORIDE 102 mmol/L (95-110); GFR AFRICAN-AMERICAN > 60; GLUCOSE,RANDOM 100 mg/dL (70-110); POTASSIUM 4.3 mmol/L (3.6-5.0); SODIUM 142 mmol/L (132-148); TOTAL PROTEIN 7.8 g/dL (5.8-8.3)
[2016-11-22] MEDS: Magnesium Oxide 400 mg Tab UD PO SCH (09:43)
[2016-11-22] MEDS: buPROPion 150 mg/24 Hours XL Tab PO SCH (09:44)
[2016-11-22] MEDS: Triamcinolone 0.025% Oint(15 gm) TOP SCH ×2 (09:44→17:22)
[2016-11-22] MEDS: Mesalamine ER Cap 500 MG PO SCH ×4 (09:44→21:29)
[2016-11-22] MEDS: Silver Sulfadiazine 1% Cream (25 gm) TP SCH (09:44)
--- NOTE | 2016-11-22 12:41 | PN ---
DATE: SUBJECTIVE: This patient was seen on the floor. OBJECTIVE: Vital signs are normal. IMPRESSION AND PLAN: He also was reportedly healing well, please recall as necessary. The patient is being followed by discussion about reversing the colostomy. Please recall as necessary. Tacho Yoo MD
--- NOTE | 2016-11-22 13:15 | CP.PCM.PN ---
Subjective - Date & Time of Evaluation Date of Evaluation: 11/22/16 Time of Evaluation: 10:25 - Subjective Subjective: Seen and examined at bedside earlier today in TCU, denies nausea, vomiting, or abdominal pain his colostomy output has soft brown stool no reports of bleeding. No reports of acute overnight events. Objective - Vital Signs/Intake and Output Vital Signs (last 24 hours): Temp Pulse Resp BP Pulse Ox 98.4 F 85 18 121/75 98 11/21/16 16:00 11/21/16 16:00 11/21/16 16:00 11/21/16 16:00 11/21/16 16:00 Intake and Output: 11/22/16 11/22/16 06:59 18:59 Intake Total 550 Balance 550 - Medications Medications: Current Medications Acetaminophen (Tylenol 325mg Tab) 650 mg PO Q4H PRN; Protocol PRN Reason: Pain, Mild (1-3) Amitriptyline HCl (Elavil) 10 mg PO HS [facility] PRN Reason: Protocol Last Admin: 11/21/16 21:17 Dose: 10 mg Benzocaine/Menthol (Cepacol Sore Throat) 1 patricia MT Q2H PRN; Protocol PRN Reason: Sore Throat Bupropion HCl (Wellbutrin Xl) 150 mg PO DAILY [facility] PRN Reason: Protocol Last Admin: 11/22/16 09:44 Dose: 150 mg Famotidine (Pepcid) 20 mg PO 1000,2200 [facility] PRN Reason: Protocol Last Admin: 11/22/16 09:44 Dose: 20 mg Vancomycin HCl 1.25 gm/ Sodium (Chloride) 250 mls @ 167 mls/hr IVPB Q12H [facility] PRN Reason: Protocol Last Admin: 11/22/16 09:43 Dose: 167 mls/hr Magnesium Oxide (Mag-Ox) 400 mg PO DAILY [facility] PRN Reason: Protocol Last Admin: 11/22/16 09:43 Dose: 400 mg Mesalamine (Pentasa) 1,000 mg PO QID [facility] PRN Reason: Protocol Last Admin: 11/22/16 09:44 Dose: 1,000 mg Quetiapine Fumarate (Seroquel Xr) 200 mg PO HS [facility] PRN Reason: Protocol Last Admin: 11/21/16 21:17 Dose: 200 mg Silver Sulfadiazine (Silvadene 1% 25 Gm) 0 gm TP DAILY [facility] PRN Reason: Protocol Last Admin: 11/22/16 09:44 Dose: 25 gm Tramadol HCl (Ultram) 50 mg PO Q8 PRN; Protocol PRN Reason: Pain, moderate (4-7) Triamcinolone Acetonide (Triamcinolone 0.25% Oint) 0 gm TOP BID [facility] PRN Reason: Protocol Last Admin: 11/22/16 09:44 Dose: 1 applic - Labs Labs: 11/22/16 08:00 11/22/16 08:00 - Constitutional Appears: No Acute Distress - Head Exam Head Exam: NORMOCEPHALIC - Eye Exam Eye Exam: Normal appearance. absent: Scleral icterus - ENT Exam ENT Exam: Mucous Membranes Moist - Neck Exam Neck Exam: Normal Inspection - Respiratory Exam Respiratory Exam: NORMAL BREATHING PATTERN. absent: Respiratory Distress - GI/Abdominal Exam GI & Abdominal Exam: Soft, Normal Bowel Sounds. absent: Guarding, Tenderness, Rebound - Extremities Exam Extremities Exam: absent: Calf Tenderness Additional comments: dressing on right leg dry and intact. - Neurological Exam Neurological Exam: Alert, Awake, Oriented x3 Assessment and Plan - Assessment and Plan (Free Text) Assessment: Assessment: Right lower extremity cellulitis (+) Staphyloccocus Bacteremia, negative coagulase Crohns Disease s/p colon resection Susac Syndrome Cerebral vasculitis PLAN: continue IV antibiotics as per ID start GI propylaxsis, Pepcid continue Pentasa diet as tolerated Seen and discussed with Dr. Okeefe.
--- NOTE | 2016-11-22 14:57 | HP ---
LOCATION: The patient is in TCU 315, bed 1. 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 Status post placement of port in the right chest wall, was admitted to the acute side with new onset of right foot swelling, cellulitis and concerned for pyoderma gangrenosum verus MRSA infection. Patient was found to have coagulase-negative staph bacteremia, on blood cultures as well and is on antibiotics for these, was transferred to the TCU for deconditioning and rehab while continuing the antibiotic therapy. Patient is being followed by Surgery for his right lower extremity cellulitis that is improving while in the hospital on antibiotics. 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 It is possible that he may have developed this infection outpatient because of the neuropathy itself. The biggest concern has been his colostomy, which is difficult to reverse at this time because of his active Crohn's, but more importantly because of his abdominal wall being so weak that it is possible that he could have wound dehiscence right after the reversal. Dr. Okeefe has been prudent and been trying to watch him to see from his colitis point of view, how best to manage him including doing another colonoscopy. PAST MEDICAL HISTORY: Significant for the fact he has Crohn's disease. He had obstructive changes in the ileum and had to go for emergency surgery with a major resection including resection of his terminal ileum as a result of his B12 deficient and iron deficient. These were done on an emergency basis for which he had a colostomy. It has been difficult to reverse the colostomy since it was done about 7 or 8 years ago. Patient has psoriasis for which he gets topical therapy and he had seen several dermatologists in the past. For the Crohn's disease, he is on Pentasa at this point in time, taking up to 8 tablets a day and he has responded to that reasonably well. SOCIAL HISTORY: Patient is a former smoker. He is able to ambulate with his walker. 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 The diagnosis of his Susac syndrome was made about 11 years ago when he was in [facility], he was in the hospice for about 6 months, bedridden and gradually improved on empiric therapy with IV gamma globulin. Initially it was given 5 days a week, once a month and gradually extended the treatments to once every 2 months and cut the IV gamma globulin to only 3 times a week. This has been given every 2 months and he has been getting B12 and iron intermittently. REVIEW OF SYSTEMS: All systems were reviewed. A 12-system review was done and there was no other additional complaints except as mentioned in the HPI. ALLERGIES: PATIENT HAS NO SIGNIFICANT ALLERGIES. CURRENT MEDICATIONS: The patient is currently on Tylenol p.r.n., Elavil 10 mg p.o. at bedtime, Cepacol lozenges p.r.n., Wellbutrin 150 mg daily, Pepcid 20 mg p.o. b.i.d., vancomycin 1 g b.i.d., he is on mag oxide 400 mg daily, he is on Pentasa 1000 mg four times daily, he is on Seroquel 200 mg p.o. at bedtime. He is on Silvadene 1% topically to affected area on the right leg. He is on Ultram 50 mg p.o. t.i.d. He is on triamcinolone topical for his psoriasis. PHYSICAL EXAMINATION: GENERAL: The patient is awake, alert and oriented, in no acute distress. VITAL SIGNS: Stable. HEENT: Head is normocephalic, atraumatic. Conjunctivae is pale. Sclerae is anicteric. Pupils are equally reactive to light and accommodation. Examination of the oropharynx reveals no oropharyngeal lesions. NECK: Supple. There is no adenopathy. LUNGS: Clear to percussion and auscultation. CARDIOVASCULAR SYSTEM: Reveals PMI to be in fifth intercostal space inside the midclavicular line. S1 and S2 are normal. No gallop or murmur is heard. ABDOMEN: Soft, protuberant. Patient has a colostomy in left upper quad, which is draining yellow stool. No rebound, rigidity or guarding is noted. Patient is developing hernia along the parastomal area. Again, not much to be done at this point in time. EXTREMITIES: Reveals the right lower extremity to be in dressing, opened and cleaned every day and being followed by both Surgery and the Podiatry service as well. Left leg is unremarkable. NEUROLOGIC: Patient has difficulty in ambulation secondary to his Susac syndrome, but he uses a walker and he is able to get around for his activities of daily living. He is on physical therapy in the unit. ASSESSMENT NOTES AND PLAN: The patient has severe sepsis due to coagulase-negative staphylococcus bacteremia and right ankle cellulitis with methicillin- sensitive Staphylococcus aureus, Crohn's disease, depression, Susac syndrome, psoriasis. Patient is on vancomycin IV along with this patient is on Merrem. Patient does need to have followup 2D echo, ultrasound of the upper extremity to rule out deep venous thrombosis. antibiotic uses about 10 to 14 days. Repeat cultures on 11/18, showing two sets positive for Gram-positive cocci. We will continue to monitor the patient clinically, and we will check with ID as to which direction we should proceed. I told the patient and discussed with him that I will speak to his brother. We are going to try to see if I can send him over to one of the tertiary care institution as far as his colostomy is concerned to see if he is a candidate for possible reversal given the multiple comorbid medical issues the patient has. As far as his psoriasis is concerned, we are just giving topical therapy. We will check with Dr. Okeefe whether I can add another drug after speaking to the shipper receiver given the fact that he has so many issues. A full blood work for him has been requested. They may have to check on the possibility of the ports removal if the cultures are persistently positive. Levi López MD
--- NOTE | 2016-11-22 16:05 | CP.PCM.PN ---
Subjective - Date & Time of Evaluation Date of Evaluation: 11/22/16 Time of Evaluation: 10:55 - Subjective Subjective: Comfortable, not in distress, less pain in the right foot. Objective - Vital Signs/Intake and Output Vital Signs (last 24 hours): Temp Pulse Resp BP Pulse Ox 98.4 F 85 18 121/75 98 11/21/16 16:00 11/21/16 16:00 11/21/16 16:00 11/21/16 16:00 11/21/16 16:00 Intake and Output: 11/22/16 11/22/16 06:59 18:59 Intake Total 550 Balance 550 - Medications Medications: Current Medications Acetaminophen (Tylenol 325mg Tab) 650 mg PO Q4H PRN; Protocol PRN Reason: Pain, Mild (1-3) Amitriptyline HCl (Elavil) 10 mg PO HS SANTINO PRN Reason: Protocol Last Admin: 11/21/16 21:17 Dose: 10 mg Benzocaine/Menthol (Cepacol Sore Throat) 1 patricia MT Q2H PRN; Protocol PRN Reason: Sore Throat Bupropion HCl (Wellbutrin Xl) 150 mg PO DAILY SANTINO PRN Reason: Protocol Last Admin: 11/21/16 11:00 Dose: 150 mg Famotidine (Pepcid) 20 mg PO 1000,2200 SANTINO PRN Reason: Protocol Last Admin: 11/21/16 21:17 Dose: 20 mg Vancomycin HCl 1.25 gm/ Sodium (Chloride) 250 mls @ 167 mls/hr IVPB Q12H SANTINO PRN Reason: Protocol Magnesium Oxide (Mag-Ox) 400 mg PO DAILY SANTINO PRN Reason: Protocol Last Admin: 11/21/16 11:00 Dose: 400 mg Mesalamine (Pentasa) 1,000 mg PO QID SANTINO PRN Reason: Protocol Last Admin: 11/21/16 21:17 Dose: 1,000 mg Quetiapine Fumarate (Seroquel Xr) 200 mg PO HS SANTINO PRN Reason: Protocol Last Admin: 11/21/16 21:17 Dose: 200 mg Silver Sulfadiazine (Silvadene 1% 25 Gm) 0 gm TP DAILY SANTINO PRN Reason: Protocol Last Admin: 11/21/16 11:00 Dose: 25 gm Tramadol HCl (Ultram) 50 mg PO Q8 PRN; Protocol PRN Reason: Pain, moderate (4-7) Triamcinolone Acetonide (Triamcinolone 0.25% Oint) 0 gm TOP BID SANTINO PRN Reason: Protocol Last Admin: 11/21/16 18:25 Dose: Not Given - Labs Labs: 11/22/16 08:00 11/22/16 08:00 - Constitutional Appears: Non-toxic, No Acute Distress - Head Exam Head Exam: NORMAL INSPECTION - Neck Exam Neck Exam: absent: Meningismus - Respiratory Exam Respiratory Exam: Decreased Breath Sounds Additional comments: right anterior chest wall port in place - Cardiovascular Exam Cardiovascular Exam: +S1, +S2 - GI/Abdominal Exam GI & Abdominal Exam: Soft. absent: Tenderness Assessment and Plan - Assessment and Plan (Free Text) Plan: Assessment Severe sepsis due to methicillin-resistant coagulase negative staph bacteremia and right ankle cellulitis with MSSA, R/O port-a-cath related infection Crohn's disease depression Susac syndrome (autoimmune disorder) psoriasis S/P right chest wall port-a-cath placement Plan Continue Vancomycin; 2D echo had poor visual windows; ultrasound of the upper extremity did not show DVT - would recommend port removal and then 5-7 more days of antibiotics after port removal repeat blood cx on Nov.18 are now still showing one of 2 sets still positive for gram positive cocci - will repeat blood cx once port is removed will continue to monitor clinically discussed with Dr. López
--- NOTE | 2016-11-22 19:02 | CP.PCM.PN ---
<Dwayne Metz - Last Filed: 11/22/16 21:06> Subjective - Date & Time of Evaluation Date of Evaluation: 11/22/16 Time of Evaluation: 18:59 - Subjective Subjective: Medicine progress note for Dr. López's service patient seen and examined at bedside. no acute overnight events or new complaints reported. denies chest pain, palpitations, sob. Objective - Vital Signs/Intake and Output Vital Signs (last 24 hours): Temp Pulse Resp BP Pulse Ox 98.5 F 86 18 128/83 99 11/22/16 16:00 11/22/16 16:00 11/22/16 16:00 11/22/16 16:00 11/22/16 16:00 Intake and Output: 11/22/16 11/22/16 06:59 18:59 Intake Total 550 Balance 550 - Medications Medications: Current Medications Acetaminophen (Tylenol 325mg Tab) 650 mg PO Q4H PRN; Protocol PRN Reason: Pain, Mild (1-3) Amitriptyline HCl (Elavil) 10 mg PO HS SANTINO PRN Reason: Protocol Last Admin: 11/21/16 21:17 Dose: 10 mg Benzocaine/Menthol (Cepacol Sore Throat) 1 patricia MT Q2H PRN; Protocol PRN Reason: Sore Throat Bupropion HCl (Wellbutrin Xl) 150 mg PO DAILY SANTINO PRN Reason: Protocol Last Admin: 11/22/16 09:44 Dose: 150 mg Famotidine (Pepcid) 20 mg PO 1000,2200 SANTINO PRN Reason: Protocol Last Admin: 11/22/16 09:44 Dose: 20 mg Vancomycin HCl 1.25 gm/ Sodium (Chloride) 250 mls @ 167 mls/hr IVPB Q12H SANTINO PRN Reason: Protocol Last Admin: 11/22/16 09:43 Dose: 167 mls/hr Magnesium Oxide (Mag-Ox) 400 mg PO DAILY SANTINO PRN Reason: Protocol Last Admin: 11/22/16 09:43 Dose: 400 mg Mesalamine (Pentasa) 1,000 mg PO QID SANTINO PRN Reason: Protocol Last Admin: 11/22/16 17:21 Dose: 1,000 mg Quetiapine Fumarate (Seroquel Xr) 200 mg PO HS SANTINO PRN Reason: Protocol Last Admin: 11/21/16 21:17 Dose: 200 mg Silver Sulfadiazine (Silvadene 1% 25 Gm) 0 gm TP DAILY SANTINO PRN Reason: Protocol Last Admin: 11/22/16 09:44 Dose: 25 gm Tramadol HCl (Ultram) 50 mg PO Q8 PRN; Protocol PRN Reason: Pain, moderate (4-7) Triamcinolone Acetonide (Triamcinolone 0.25% Oint) 0 gm TOP BID SANTINO PRN Reason: Protocol Last Admin: 11/22/16 17:22 Dose: 1 applic - Labs Labs: 11/22/16 08:00 11/22/16 08:00 - Constitutional Appears: No Acute Distress - Head Exam Head Exam: ATRAUMATIC, NORMAL INSPECTION, NORMOCEPHALIC - Eye Exam Eye Exam: EOMI, PERRL - ENT Exam ENT Exam: Mucous Membranes Moist - Respiratory Exam Respiratory Exam: Clear to Ausculation Bilateral. absent: Rales, Rhonchi, Wheezes - Cardiovascular Exam Cardiovascular Exam: RRR, +S1, +S2. absent: Gallop, Rubs, Murmur - GI/Abdominal Exam GI & Abdominal Exam: Soft. absent: Distended, Firm, Guarding, Rigid, Tenderness , Rebound Additional comments: colostomy; site clean dry and intact - Neurological Exam Neurological Exam: Alert, Awake, Oriented x3 - Psychiatric Exam Psychiatric exam: Normal Affect, Normal Mood - Skin Additional comments: psoriatic patches on lower extremities Assessment and Plan - Assessment and Plan (Free Text) Plan: 50yo male with history of Crohn's disease, Psoriasis, Susac syndrome, cerebral vasculitis and depression presents with sepsis 2/2 right lower extremity wound 1. Sepsis 2/2 Right lower extremity wound -afebrile, no leukocytosis -first set of blood cultures growing methicillin resistant coag neg staph -repeat blood cultures grew gram positive cocci in one bottle -Per ID recommendations, port-a-cath to be removed by IR and repeat blood cultures drawn once removed -Echocardiogram reviewed; poor window -Wound culture notable for MSSA -Currently on Vancomycin per ID recommendations -Tibia/fibula xray negative; see full report -Tylenol PRN for fevers -ID (Dr. Clay) and Surgery (Dr. Hinkle) consulted 2. Crohn's disease -Continue with Pentasa 3. Susac syndrome -Patient follows up with Dr. López for IVIG treatment 4. Depression -Continue home seroquel, buproprion and amitriptyline Patient seen and case discussed with attending, Dr. López <Levi López - Last Filed: 11/27/16 13:17> Objective - Vital Signs/Intake and Output Vital Signs (last 24 hours): Temp Pulse Resp BP Pulse Ox 97.5 F L 100 H 20 134/86 94 L 11/27/16 10:56 11/27/16 10:56 11/27/16 10:56 11/27/16 10:56 11/27/16 10:56 - Medications Medications: Current Medications Acetaminophen (Tylenol 325mg Tab) 650 mg PO Q4H PRN; Protocol PRN Reason: Pain, Mild (1-3) Amitriptyline HCl (Elavil) 20 mg PO HS SANTINO PRN Reason: Protocol Last Admin: 11/26/16 21:50 Dose: 20 mg Benzocaine/Menthol (Cepacol Sore Throat) 1 patricia MT Q2H PRN; Protocol PRN Reason: Sore Throat Last Admin: 11/23/16 21:33 Dose: 1 patricia Famotidine (Pepcid) 20 mg PO 1000,2200 SANTINO PRN Reason: Protocol Last Admin: 11/27/16 09:31 Dose: 20 mg Vancomycin HCl 1.25 gm/ Sodium (Chloride) 250 mls @ 167 mls/hr IVPB Q12H SANTINO PRN Reason: Protocol Stop: 11/28/16 11:00 Last Admin: 11/27/16 09:31 Dose: 167 mls/hr Magnesium Oxide (Mag-Ox) 400 mg PO DAILY SANTINO PRN Reason: Protocol Last Admin: 11/27/16 09:31 Dose: 400 mg Mesalamine (Pentasa) 1,000 mg PO QID SANTINO PRN Reason: Protocol Last Admin: 11/27/16 09:31 Dose: 1,000 mg Silver Sulfadiazine (Silvadene 1% 25 Gm) 0 gm TP DAILY SANTINO PRN Reason: Protocol Last Admin: 11/27/16 09:32 Dose: 25 gm Tramadol HCl (Ultram) 50 mg PO Q8 PRN; Protocol PRN Reason: Pain, moderate (4-7) Triamcinolone Acetonide (Triamcinolone 0.25% Oint) 0 gm TOP BID SANTINO PRN Reason: Protocol Last Admin: 11/27/16 09:32 Dose: 1 applic - Labs Labs: 11/27/16 09:20 11/27/16 09:20 Attending/Attestation - Attestation I have personally seen and examined this patient.: Yes I have fully participated in the care of the patient.: Yes I have reviewed all pertinent clinical information, including history, physical exam and plan: Yes
[2016-11-22] MEDS: QUEtiapine 200 mg XR Tab PO SCH (21:30)
[2016-11-22] MEDS: Benzocaine/Menthol (Cepacol) Lozenge MT PRN (21:32)
[2016-11-23] MEDS: Mesalamine ER Cap 500 MG PO SCH ×4 (09:46→21:33)
[2016-11-23] MEDS: Magnesium Oxide 400 mg Tab UD PO SCH (09:46)
[2016-11-23] MEDS: buPROPion 150 mg/24 Hours XL Tab PO SCH (09:47)
[2016-11-23] MEDS: Triamcinolone 0.025% Oint(15 gm) TOP SCH ×2 (10:24→17:29)
[2016-11-23] MEDS: Silver Sulfadiazine 1% Cream (25 gm) TP SCH (10:24)
--- NOTE | 2016-11-23 10:56 | CP.PCM.PCO ---
Addendum Addendum: 11/23/16 10:55 pt was at the same day procedure to remover infected port, will f/u tomorrow discussed with RN, pt is not in acute distress
--- NOTE | 2016-11-23 15:28 | PN ---
DATE: 11/23/2016 SUBJECTIVE: Mr. Andrew Bonilla was seen in 313. No fever and no chills. PHYSICAL EXAMINATION: VITAL SIGNS: Temperature 98, blood pressure 109/60, and respiratory rate 16. HEENT: Unremarkable. NECK: Supple. LUNGS: Decreased breath sounds. HEART: Normal S1 and S2. ABDOMEN: Soft. LABORATORY DATA: Reveals a white count of 5, hemoglobin of 13, and platelets of 149. Chemistry reveals a BUN of 13 and creatinine of 1.0. Vancomycin trough as of yesterday was 18. Microbiology reveals the blood culture is positive for Gram positive cocci in 1 bottle, second bottle with no growth at 24 hours. The identification of the first bottle with the Gram positive cocci is pending and the patient did have Coag-negative Staph in the blood cultures earlier. Leg cultures have Staph aureus. Review of orders. The patient is on IV vancomycin. ASSESSMENT AND PLAN: A 50-year-old male with severe sepsis with methicillin-resistant Staphylococcus epidermidis bacteremia, right ankle cellulitis with methicillin-susceptible Staphylococcus aureus, rule out Port-A-Cath related infection in a patient with Crohn's disease, depression, Susac syndrome, psoriasis, status post right chest wall placement, the patient is on vancomycin. Ultrasound of the upper extremities did not show a deep vein thrombosis. Recommend removal of the Port-A-Cath, 5-7 days of antibiotics after removal of Port-A-Cath. Repeat cultures unfortunately 1 Gram positive, it is still positive repeat x2. Vancomycin trough level of 18.3. We will continue on present course and repeat blood cultures. Ned Clay MD
[2016-11-23 15:56] LABS: BASO # 0.03 K/mm3 (0.0-2.0); BASO % 0.6 % (0.0-3.0); EOS # 0.1 (0.0-0.7); EOS % 2.6 % (1.5-5.0); GRAN # 3.44 (1.4-6.5); HEMATOCRIT 39.9 % (42.0-52.0); LYMPH # 1.2 (1.2-3.4); LYMPH % 22.6 % (22.0-35.0); MEAN CELL VOLUME 88.5 fl (80.0-105.0); MEAN CORPUSCULAR HGB CONC 35.1 g/dl (31.0-37.0); MEAN PLATELET VOLUME 9.7 fl (7.0-11.0); MONO # 0.5 (0.1-0.6); MONO % 9.2 % (1.0-6.0); WHITE BLOOD COUNT 5.3 10^3/ul (4.5-11.0)
[2016-11-23 16:12] LABS: ALB/GLOB RATIO 1.3 (1.1-1.8); ALKALINE PHOSPHATASE 79 U/L (38-126); ALT/SGPT 39 U/L (7-56); AST/SGOT 45 U/L (17-59); BILIRUBIN,TOTAL 0.8 mg/dL (0.2-1.3); BLOOD UREA NITROGEN 16 mg/dL (7-21); CALCIUM 9.5 mg/dL (8.4-10.5); CARBON DIOXIDE 25 mmol/L (21-33); CHLORIDE 104 mmol/L (98-107); GFR AFRICAN-AMERICAN > 60; GLUCOSE,RANDOM 122 mg/dL (70-110); POTASSIUM 4.3 mmol/L (3.6-5.0); SODIUM 141 mmol/L (132-148); TOTAL PROTEIN 7.7 g/dL (5.8-8.3)
[2016-11-23] MEDS: QUEtiapine 200 mg XR Tab PO SCH (21:33)
[2016-11-23] MEDS: Benzocaine/Menthol (Cepacol) Lozenge MT PRN (21:33)
--- NOTE | 2016-11-24 03:07 | PN ---
DATE: LOCATION: The patient is in room 213, bed 1. SUBJECTIVE: The patient is sitting out of bed in the chair. He has no fever, no chills. He had been downstairs today to have his port removed because of persistent bacteremia. I explained this to the patient as we were talking. PHYSICAL EXAMINATION VITAL SIGNS: The patient's vital signs are stable. T-max is 98.4, blood pressure is 109/60, respirations 18. HEENT: Head is normocephalic, atraumatic. Conjunctivae pale. Examination of the oropharynx reveals no oropharyngeal lesions. NECK: Supple. There is no adenopathy. HEART: PMI to be in the fifth intercostal space inside the midclavicular line. S1 and S2 are normal. No gallop or murmur is heard. LUNGS: Clear to percussion and auscultation. ABDOMEN: Soft. The patient has a colostomy in the left lower quadrant of the abdomen with parastomal hernia. No masses are felt in the abdominal exam. No rebound, rigidity or guarding is noted. EXTREMITIES: There was no cyanosis, clubbing or edema. NEUROLOGIC: The patient has significant neuropathy in the lower extremities. SKIN: Reveals the patient to have extensive psoriasis for which he is on topical treatment. He is also on medications for his Crohn's disease as well. LABORATORY DATA: From today reveals white count of 5, hemoglobin of 13, platelet count of 149,000. BUN is 13, creatinine 1. Vancomycin trough as of yesterday was 18. Microbiology reveals the blood culture is positive for Gram-positive cocci in one bottle. Second bottle with no growth at 24 hours. The identification of the first bottle of Gram-positive cocci is pending and the patient did have coagulase-negative Staph in the blood cultures earlier on. Leg cultures have Staph aureus and the leg wound, which he has is improving with local dressing and followup by the surgical team. ASSESSMENT: This is a 50-year-old male with severe sepsis with methicillin-resistant Staphylococcus epidermidis bacteremia, right ankle cellulitis with methicillin-susceptible Staphylococcus aureus. The patient's port has been removed today because of the Staphylococcus infection to be on the safe side. The patient will continue to need IV antibiotics for a total of 7 to 8 days with IV vancomycin. Ultrasound of the upper extremities did not show any deep vein thrombosis. The lower extremities did not present deep vein thrombosis. As per Infectious Disease, they recommended 7 days of antibiotics after removal of the port. PLAN: Plan would be to continue the present course. We will check with ID about further decision making. Since the port is out the patient looks clinically better. I talked to Dr. Okeefe regarding management as far as Crohn's is concerned. Recommend continuing the Pentasa for now. Topical therapy for the psoriasis at this point in time. I spoke to the brother of the patient. We will try to set him up to see one of the doctors in [facility] to see if he is a candidate for reversal of the stoma if feasible without wound dehiscence. Routine post exam instructions have been given to the patient. Blood work for him has been requested. Levi López MD
[2016-11-24 07:23] LABS: BASO # 0.02 K/mm3 (0.0-2.0); BASO % 0.4 % (0.0-3.0); EOS # 0.1 (0.0-0.7); EOS % 2.7 % (1.5-5.0); GRAN # 2.78 (1.4-6.5); GRAN % 57.4 % (50.0-68.0); HEMATOCRIT 38.1 % (42.0-52.0); LYMPH # 1.5 (1.2-3.4); LYMPH % 30.6 % (22.0-35.0); MEAN CELL VOLUME 89.2 fl (80.0-105.0); MEAN CORPUSCULAR HEMOGLOBIN 30.2 pg (25.0-35.0); MEAN CORPUSCULAR HGB CONC 33.9 g/dl (31.0-37.0); MEAN PLATELET VOLUME 10.1 fl (7.0-11.0); MONO # 0.4 (0.1-0.6); MONO % 8.9 % (1.0-6.0); RED CELL DISTRIBUTION WIDTH 13.1 % (11.5-14.5); WHITE BLOOD COUNT 4.8 10^3/ul (4.5-11.0)
[2016-11-24 08:02] LABS: ALB/GLOB RATIO 1.2 (1.1-1.8); ALKALINE PHOSPHATASE 74 U/L (38-126); ALT/SGPT 32 U/L (7-56); AST/SGOT 36 U/L (17-59); BILIRUBIN,TOTAL 0.7 mg/dL (0.2-1.3); BLOOD UREA NITROGEN 18 mg/dL (7-21); CALCIUM 9.2 mg/dL (8.4-10.5); CARBON DIOXIDE 29 mmol/L (21-33); CHLORIDE 102 mmol/L (98-107); GFR AFRICAN-AMERICAN > 60; GLUCOSE,RANDOM 95 mg/dL (70-110); POTASSIUM 4.4 mmol/L (3.6-5.0); SODIUM 140 mmol/L (132-148); TOTAL PROTEIN 7.1 g/dL (5.8-8.3)
[2016-11-24] MEDS: Magnesium Oxide 400 mg Tab UD PO SCH (09:47)
[2016-11-24] MEDS: Mesalamine ER Cap 500 MG PO SCH ×4 (09:48→21:11)
[2016-11-24] MEDS: Triamcinolone 0.025% Oint(15 gm) TOP SCH ×2 (09:49→17:22)
[2016-11-24] MEDS: Silver Sulfadiazine 1% Cream (25 gm) TP SCH (09:49)
[2016-11-24] MEDS: buPROPion 150 mg/24 Hours XL Tab PO SCH (09:50)
--- NOTE | 2016-11-24 12:53 | CON ---
DATE: HISTORY OF PRESENT ILLNESS: The patient is 50-year-old male with not known previous psychiatric history. The patient was admitted initially at the medical site for evaluation of infected wound on the lower extremities. Psych consult was called for evaluation of mood symptoms and the patient is psychiatric medications. The patient was seen today and examined. The patient presented to be alert, oriented, and pleasant. The patient's brother Todd next to the patient phone number is [phone]. The patient said that he is not feeling any better. He has some transient pain in his leg. At the same time, the patient complained of insomnia. The patient is not sure of why psychotropic medications were prescribed to him and the patient was filling medication in [facility]. [facility] was contacted, phone number is [phone]. The patient was on Paxil 10 mg daily, also amitriptyline 10 mg daily prescribed by Dr. Jose Mora filled on 11/02/2016, and Lyrica 50 mg twice a day prescribed by the same doctor, Dr. Mora filled on 11/02/2016. The patient is on Seroquel 200 mg for the night time and Wellbutrin 150 mg daily. The patient has refills for all of the medication, but Lyrica and amitriptyline. The patient said that he is overwhelmed with a lot of medication over one week. He is taking more than 140 pills. The patient said he is tired of that, willing to be weaned off from the medications, but at the same time this justowriter operator is not sure who was prescribing this medication and was the main reason why the patient was taking them. Need to have more information. The patient reported that he feels depressed over his medical problems, but not in the way that he would like to end up his life. The patient said that other person who would have a lot of medical issues like patient most likely would feel the same way as he is. The patient reported that at home he feels better and in the hospital he was not feeling that great because a lot of disturbances when he is sleeping. The patient denies hearing voices. Denies seeing things. Denies paranoid ideations. The patient denies thoughts of harming himself or others. As per the patient's brother who is next to the patient, the patient has never been suicidal, never been evaluated by psychiatrist in the past, and did not verbalize thoughts of killing himself anytime in the past. MEDICATION: List is reviewed. The patient is not on Paxil any more in the hospital, but continued amitriptyline 10 mg at the night time as well as Lyrica twice a day 50 mg daily and Seroquel 200 mg at the nighttime as well as Wellbutrin. PAST MEDICAL HISTORY: Previous history reviewed by this justowriter operator. The patient has never been evaluated by psychiatrist while he was admitted to [facility]. No visual disturbances. The patient is compliant with medication and treatment plan. PHYSICAL EXAMINATION VITAL SIGNS: Stable, but the patient has mild tachycardia 100. LABORATORY DATA: Labs reviewed. Most recent was from today, hemoglobin and hematocrit 12.9 and 38.1. Chemistry reviewed. Toxicology reviewed. Vancomycin trough is 18.3. MENTAL STATUS EXAMINATION: The patient presented today alert, oriented, pleasant, cooperative, intermittent eye contact. The patient was somewhat loud, but it could be related to hard of hearing. Mood described as depressed because of a lot of medical issues. Affect was constricted, but reactive mood congruent. Thought process was coherent and goal directed. Thought content the patient denies visual or tactile hallucinations. Denies paranoid ideations. The patient does not appear to be psychotic. Insight and judgment fair. Impulses are well controlled. IMPRESSION: Rule out mood disorder due to general medical condition. The patient has multiple issues please see above. PLAN: Continue current management. Paxil was discontinued as of now. Amitriptyline will be continued 10 mg at the night time, Seroquel 200 mg at the night time, most likely the patient had irritability and mood swings, and Wellbutrin will be continued as of now 150 mg daily. DISCHARGE: We will follow up on this patient more in order to start weaning the patient all from Seroquel as well as possible Wellbutrin and we will keep an eye on this patient and advise accordingly, physical therapy. Collateral also obtained from the patient's brother who was next to the patient. Should you have any questions give me a call back. I will follow up and advise accordingly. Brandie Schaefer MD
[2016-11-24] MEDS: QUEtiapine 200 mg XR Tab PO SCH (21:12)
[2016-11-25 07:36] LABS: BASO # 0.03 K/mm3 (0.0-2.0); BASO % 0.6 % (0.0-3.0); EOS # 0.1 (0.0-0.7); GRAN # 2.76 (1.4-6.5); GRAN % 58.9 % (50.0-68.0); HEMATOCRIT 38.9 % (42.0-52.0); LYMPH # 1.4 (1.2-3.4); LYMPH % 29.4 % (22.0-35.0); MEAN CELL VOLUME 89.8 fl (80.0-105.0); MEAN CORPUSCULAR HEMOGLOBIN 30.3 pg (25.0-35.0); MEAN CORPUSCULAR HGB CONC 33.7 g/dl (31.0-37.0); MONO # 0.4 (0.1-0.6); MONO % 8.1 % (1.0-6.0); RED CELL DISTRIBUTION WIDTH 13.1 % (11.5-14.5); WHITE BLOOD COUNT 4.7 10^3/ul (4.5-11.0)
[2016-11-25 07:40] LABS: ALB/GLOB RATIO 1.4 (1.1-1.8); ALKALINE PHOSPHATASE 78 U/L (38-126); ALT/SGPT 43 U/L (7-56); AST/SGOT 34 U/L (17-59); BILIRUBIN,TOTAL 0.8 mg/dL (0.2-1.3); BLOOD UREA NITROGEN 15 mg/dL (7-21); CALCIUM 9.3 mg/dL (8.4-10.5); CARBON DIOXIDE 26 mmol/L (21-33); CHLORIDE 105 mmol/L (95-110); GFR AFRICAN-AMERICAN > 60; GLUCOSE,RANDOM 96 mg/dL (70-110); POTASSIUM 4.4 mmol/L (3.6-5.0); SODIUM 142 mmol/L (132-148); TOTAL PROTEIN 7.3 g/dL (5.8-8.3)
--- NOTE | 2016-11-25 08:41 | PN ---
DATE: 11/24/2016 PHYSICAL EXAMINATION: VITAL SIGNS: Temperature is 98, blood pressure is 118/70, respiratory rate of 18 and heart rate of 100. HEENT: Unremarkable. NECK: Supple. LUNGS: Decreased breath sounds. HEART: Normal S1 and S2. ABDOMEN: Soft and nontender. LABORATORY DATA: Reveals a white count of 4.8, hemoglobin of 12 and platelets of 150. Chemistry reveals a BUN of 18 and creatinine of 1.3. Microbiology reveals the blood culture is negative in one bottle, the other one is a coag-negative Staph. The review of orders reveals the patient's repeat blood culture results are pending. The patient is currently on vancomycin and Dr. López's progress note is appreciated. ASSESSMENT AND PLAN: This is a 50-year-old male with severe sepsis with methicillin-resistant Staphylococcus epidermidis bacteremia, right ankle cellulitis and methicillin-susceptible Staphylococcus aureus, must rule out a Port-A-Cath related infection in a patient with Crohn disease, depression, Susac syndrome, psoriasis and status post right chest wall placement. Recommend removal of the Port-A-Cath. Upper extremity was negative for deep venous thrombosis. Unfortunately, the repeat cultures are still positive. We are waiting for the next set of blood cultures and we will need antibiotics from the time the cultures become negative. The patient's echocardiogram findings are reviewed. A 2D echocardiogram did had poor visual windows. Ned Clay MD
[2016-11-25] MEDS: Mesalamine ER Cap 500 MG PO SCH ×4 (10:18→21:15)
[2016-11-25] MEDS: Magnesium Oxide 400 mg Tab UD PO SCH (10:18)
[2016-11-25] MEDS: Triamcinolone 0.025% Oint(15 gm) TOP SCH ×2 (10:19→17:44)
[2016-11-25] MEDS: Silver Sulfadiazine 1% Cream (25 gm) TP SCH (10:19)
[2016-11-25] MEDS: buPROPion 150 mg/24 Hours XL Tab PO SCH (10:20)
--- NOTE | 2016-11-25 11:18 | CP.PCM.PN ---
<Dwayne Metz - Last Filed: 11/25/16 11:15> Subjective - Date & Time of Evaluation Date of Evaluation: 11/25/16 Time of Evaluation: 11:15 - Subjective Subjective: Progress note for Dr. López's service Patient seen and examined at bedside this morning. No acute overnight events or new complaints. Denies cp, palpitations, SOB. Objective - Vital Signs/Intake and Output Vital Signs (last 24 hours): Temp Pulse Resp BP Pulse Ox 98.6 F 1 L 18 114/75 96 11/24/16 17:30 11/24/16 17:30 11/24/16 17:30 11/24/16 17:30 11/24/16 17:30 Intake and Output: 11/25/16 11/25/16 06:59 18:59 Intake Total 640 Balance 640 - Medications Medications: Current Medications Acetaminophen (Tylenol 325mg Tab) 650 mg PO Q4H PRN; Protocol PRN Reason: Pain, Mild (1-3) Amitriptyline HCl (Elavil) 10 mg PO HS SANTINO PRN Reason: Protocol Last Admin: 11/24/16 21:11 Dose: 10 mg Benzocaine/Menthol (Cepacol Sore Throat) 1 patricia MT Q2H PRN; Protocol PRN Reason: Sore Throat Last Admin: 11/23/16 21:33 Dose: 1 patricia Bupropion HCl (Wellbutrin Xl) 150 mg PO DAILY SANTINO PRN Reason: Protocol Last Admin: 11/25/16 10:20 Dose: 150 mg Famotidine (Pepcid) 20 mg PO 1000,2200 SANTINO PRN Reason: Protocol Last Admin: 11/25/16 10:19 Dose: 20 mg Vancomycin HCl 1.25 gm/ Sodium (Chloride) 250 mls @ 167 mls/hr IVPB Q12H SANTINO PRN Reason: Protocol Last Admin: 11/25/16 08:46 Dose: 167 mls/hr Magnesium Oxide (Mag-Ox) 400 mg PO DAILY SANTINO PRN Reason: Protocol Last Admin: 11/25/16 10:18 Dose: 400 mg Mesalamine (Pentasa) 1,000 mg PO QID SANTINO PRN Reason: Protocol Last Admin: 11/25/16 10:18 Dose: 1,000 mg Quetiapine Fumarate (Seroquel Xr) 200 mg PO HS SANTINO PRN Reason: Protocol Last Admin: 11/24/16 21:12 Dose: 200 mg Silver Sulfadiazine (Silvadene 1% 25 Gm) 0 gm TP DAILY SANTINO PRN Reason: Protocol Last Admin: 11/25/16 10:19 Dose: 25 gm Tramadol HCl (Ultram) 50 mg PO Q8 PRN; Protocol PRN Reason: Pain, moderate (4-7) Triamcinolone Acetonide (Triamcinolone 0.25% Oint) 0 gm TOP BID SANTINO PRN Reason: Protocol Last Admin: 11/25/16 10:19 Dose: 1 applic - Labs Labs: 11/25/16 07:00 11/25/16 07:00 - Constitutional Appears: No Acute Distress - Head Exam Head Exam: ATRAUMATIC, NORMAL INSPECTION, NORMOCEPHALIC - Eye Exam Eye Exam: EOMI, PERRL - ENT Exam ENT Exam: Mucous Membranes Moist - Neck Exam Neck Exam: Normal Inspection - Respiratory Exam Respiratory Exam: Clear to Ausculation Bilateral. absent: Rales, Rhonchi, Wheezes - Cardiovascular Exam Cardiovascular Exam: RRR, +S1, +S2. absent: Gallop, Rubs, Murmur - GI/Abdominal Exam GI & Abdominal Exam: Soft. absent: Distended, Firm, Guarding, Rigid, Tenderness , Rebound Additional comments: colostomy; site clean dry and intact - Neurological Exam Neurological Exam: Alert, Awake, Oriented x3 - Psychiatric Exam Psychiatric exam: Normal Affect, Normal Mood - Skin Skin Exam: Dry, Normal Color, Warm Additional comments: psoriatic patches Assessment and Plan - Assessment and Plan (Free Text) Plan: 50yo male with history of Crohn's disease, Psoriasis, Susac syndrome, cerebral vasculitis and depression presents with sepsis 2/2 right lower extremity wound 1. Sepsis 2/2 Right lower extremity wound -afebrile, no leukocytosis -first set of blood cultures growing methicillin resistant coag neg staph -repeat blood cultures grew gram positive cocci in one bottle -Port-a-cath removed by IR -repeat blood cultures post port removal thus far negative -Echocardiogram reviewed; poor window -Wound culture notable for MSSA -Continue with abx for 5-7 post port removal per ID recommendations -Tibia/fibula xray negative; see full report -Tylenol PRN for fevers -ID (Dr. Clay) and Surgery (Dr. Hinkle) consulted 2. Crohn's disease -Continue with Pentasa -Patient to be referred to surgeon at [facility] for potential colostomy reversal 3. Susac syndrome -Patient follows up with Dr. López for IVIG treatment 4. Depression -Continue home seroquel, buproprion and amitriptyline Patient seen and case discussed with attending, Dr. López <Levi López - Last Filed: 11/27/16 13:18> Objective - Vital Signs/Intake and Output Vital Signs (last 24 hours): Temp Pulse Resp BP Pulse Ox 97.5 F L 100 H 20 134/86 94 L 11/27/16 10:56 11/27/16 10:56 11/27/16 10:56 11/27/16 10:56 11/27/16 10:56 - Medications Medications: Current Medications Acetaminophen (Tylenol 325mg Tab) 650 mg PO Q4H PRN; Protocol PRN Reason: Pain, Mild (1-3) Amitriptyline HCl (Elavil) 20 mg PO HS SANTINO PRN Reason: Protocol Last Admin: 11/26/16 21:50 Dose: 20 mg Benzocaine/Menthol (Cepacol Sore Throat) 1 patricia MT Q2H PRN; Protocol PRN Reason: Sore Throat Last Admin: 11/23/16 21:33 Dose: 1 patricia Famotidine (Pepcid) 20 mg PO 1000,2200 SANTINO PRN Reason: Protocol Last Admin: 11/27/16 09:31 Dose: 20 mg Vancomycin HCl 1.25 gm/ Sodium (Chloride) 250 mls @ 167 mls/hr IVPB Q12H SANTINO PRN Reason: Protocol Stop: 11/28/16 11:00 Last Admin: 11/27/16 09:31 Dose: 167 mls/hr Magnesium Oxide (Mag-Ox) 400 mg PO DAILY SANTINO PRN Reason: Protocol Last Admin: 11/27/16 09:31 Dose: 400 mg Mesalamine (Pentasa) 1,000 mg PO QID SANTINO PRN Reason: Protocol Last Admin: 11/27/16 09:31 Dose: 1,000 mg Silver Sulfadiazine (Silvadene 1% 25 Gm) 0 gm TP DAILY SANTINO PRN Reason: Protocol Last Admin: 11/27/16 09:32 Dose: 25 gm Tramadol HCl (Ultram) 50 mg PO Q8 PRN; Protocol PRN Reason: Pain, moderate (4-7) Triamcinolone Acetonide (Triamcinolone 0.25% Oint) 0 gm TOP BID SANTINO PRN Reason: Protocol Last Admin: 11/27/16 09:32 Dose: 1 applic - Labs Labs: 11/27/16 09:20 11/27/16 09:20 Attending/Attestation - Attestation I have personally seen and examined this patient.: Yes I have fully participated in the care of the patient.: Yes I have reviewed all pertinent clinical information, including history, physical exam and plan: Yes
--- NOTE | 2016-11-25 14:47 | PN ---
DATE OF SERVICE: 11/25/2016 SUBJECTIVE: The patient is in bed, in no acute distress. The patient is seen in Transitional Care. OBJECTIVE: VITAL SIGNS: Temperature of 98, blood pressure is 114/70, respiratory rate of 18, heart rate of 90. HEENT: Unremarkable. NECK: Supple. LUNGS: Have decreased breath sounds. HEART: Normal S1, S2. ABDOMEN: Soft, nontender. LABORATORY DATA: Laboratory examination reveals a white count of 4.7, hemoglobin of 13, platelets of 163, BUN of 15, creatinine of 1.1, and vancomycin trough level of 18. Blood cultures are reported to have no growth and initial cultures coag-negative staph, and the repeat blood cultures from the have no growth. The once from the did have one bottle still positive. Dr. Dwayne Metz's note is reviewed. ASSESSMENT AND PLAN: This is a 50-year-old male, seen earlier today in Transitional Care with severe sepsis with methicillin-resistant Staphylococcus epidermidis bacteremia with a right ankle cellulitis with sensitive Staphylococcus aureus, possible Port-A-Cath related, repeat blood cultures have been positive, status post Port-A-Cath removal by Interventional Radiology, in a patient with Crohn disease, depression, Susac syndrome, psoriasis, now is day #3 of antibiotics. The patient's blood cultures were negative from 11/23/2016 that would be the first day of effective antibiotic therapy, so today is day #3 of 7 to 10 days of vancomycin. We will follow closely with you. We will order a vancomycin trough level. The last trough level was on which was 18.3 with chemistries reveal a 1.1 chemistry. Ned Clay MD
[2016-11-25] MEDS ORDERED: QUEtiapine 200 mg XR Tab PO SCH (16:41)
[2016-11-25] MEDS ORDERED: QUEtiapine 50 mg XR Tab PO SCH (22:00)
--- NOTE | 2016-11-26 00:51 | PN ---
FOLLOWUP NOTE SUBJECTIVE: The patient is a 50-year-old male with multiple medical problems. The patient was seen by this remote mortgage underwriter yesterday for medication management and possible adjustment of the medication. The patient's pharmacy was called and medications were confirmed. The patient was on Paxil 10 mg daily. The patient also is on amitriptyline 10 mg at the nighttime, Lyrica 50 mg twice a day, Seroquel 200 mg at bedtime, and Wellbutrin 150 mg at the nighttime. The patient expressed his interest to be weaned off from the medications and this remote mortgage underwriter educated about risks, benefits, and alternatives of the medications. The patient was willing to taper down on Seroquel as well as Wellbutrin and was in agreement to increase dose of Elavil. VITAL SIGNS: This remote mortgage underwriter reviewed vital signs, seemed to be stable. Temperature 98.8, pulse 93, blood pressure 121/78, respirations 20, and oxygen saturation 95. MEDICATIONS: Reviewed as this remote mortgage underwriter described above. This remote mortgage underwriter will increase the dose of Elavil to 20 mg. Wellbutrin will be discontinued. It is safe to discontinue because it is extended release and will be weaned off slowly from the patient's body. Seroquel will be decreased to 100 mg at the nighttime. The patient is not aware why he is taking that medication and does not want to continue. LABORATORY DATA: Labs reviewed. Most recent was from today. MENTAL STATUS EXAMINATION: The patient presented to be alert and oriented, pleasant, cooperative, intermittent eye contact. Speech was normal rate, tone, quality, and quantity. Mood described as "I feel okay", but the patient said that he is not willing to give up his Coca [employer]a and chips, and the patient is adamant about that. The patient's affect was reactive, mood congruent. Thought process was coherent and goal directed. Thought content, the patient denied visual, auditory, tactile hallucinations. Denied paranoid ideation. The patient denied thoughts of harming himself or others. Denied intents or plans. Insight and judgment fair. Impulses are well controlled. IMPRESSION: Most likely, the patient has mood disorder due to general medical condition versus mood disorder, not otherwise specified. PLAN: This remote mortgage underwriter discontinued Paxil as well as Wellbutrin. Seroquel will be decreased to 100 mg at the nighttime. Amitriptyline will be increased to 20 mg at the nighttime for mood as well as possible neuropathy. The patient was in agreement with that plan. This remote mortgage underwriter will follow up on this patient tomorrow. All medications were confirmed by the patient's pharmacy yesterday. Thank you very much for letting me participate in care of your patient. Should you have any questions, give me a call back. Brandie Schaefer MD
[2016-11-26 07:17] LABS: BASO # 0.04 K/mm3 (0.0-2.0); BASO % 0.8 % (0.0-3.0); EOS # 0.2 (0.0-0.7); EOS % 3.1 % (1.5-5.0); GRAN # 3.1 (1.4-6.5); GRAN % 60.2 % (50.0-68.0); HEMATOCRIT 39.8 % (42.0-52.0); LYMPH # 1.5 (1.2-3.4); LYMPH % 28.3 % (22.0-35.0); MEAN CELL VOLUME 89.6 fl (80.0-105.0); MEAN CORPUSCULAR HEMOGLOBIN 31.5 pg (25.0-35.0); MEAN CORPUSCULAR HGB CONC 35.2 g/dl (31.0-37.0); MEAN PLATELET VOLUME 9.8 fl (7.0-11.0); MONO # 0.4 (0.1-0.6); MONO % 7.6 % (1.0-6.0); RED CELL DISTRIBUTION WIDTH 13.2 % (11.5-14.5); WHITE BLOOD COUNT 5.2 10^3/ul (4.5-11.0)
[2016-11-26 07:29] LABS: ALB/GLOB RATIO 1.3 (1.1-1.8); ALKALINE PHOSPHATASE 78 U/L (38-126); ALT/SGPT 45 U/L (7-56); AST/SGOT 33 U/L (17-59); BILIRUBIN,TOTAL 0.7 mg/dL (0.2-1.3); BLOOD UREA NITROGEN 14 mg/dL (7-21); CALCIUM 9.3 mg/dL (8.4-10.5); CARBON DIOXIDE 25 mmol/L (21-33); CHLORIDE 106 mmol/L (95-110); GFR AFRICAN-AMERICAN > 60; GLUCOSE,RANDOM 95 mg/dL (70-110); POTASSIUM 4.4 mmol/L (3.6-5.0); SODIUM 141 mmol/L (132-148); TOTAL PROTEIN 7.3 g/dL (5.8-8.3)
--- NOTE | 2016-11-26 10:16 | CP.PCM.PN ---
<Dwayne Metz - Last Filed: 11/26/16 10:12> Subjective - Date & Time of Evaluation Date of Evaluation: 11/26/16 Time of Evaluation: 10:12 - Subjective Subjective: Progress note for Dr. López's service Patient seen and examined at bedside this morning. No acute overnight events or new complaints reported. Denies cp, palptiations, SOB. Objective - Vital Signs/Intake and Output Vital Signs (last 24 hours): Temp Pulse Resp BP Pulse Ox 98.8 F 96 H 20 121/78 95 11/25/16 16:00 11/25/16 16:00 11/25/16 16:00 11/25/16 16:00 11/25/16 16:00 Intake and Output: 11/26/16 11/26/16 06:59 18:59 Intake Total 520 Balance 520 - Medications Medications: Current Medications Acetaminophen (Tylenol 325mg Tab) 650 mg PO Q4H PRN; Protocol PRN Reason: Pain, Mild (1-3) Amitriptyline HCl (Elavil) 20 mg PO HS SANTINO PRN Reason: Protocol Last Admin: 11/25/16 21:15 Dose: 20 mg Benzocaine/Menthol (Cepacol Sore Throat) 1 patricia MT Q2H PRN; Protocol PRN Reason: Sore Throat Last Admin: 11/23/16 21:33 Dose: 1 patricia Famotidine (Pepcid) 20 mg PO 1000,2200 SANTINO PRN Reason: Protocol Last Admin: 11/25/16 21:16 Dose: 20 mg Vancomycin HCl 1.25 gm/ Sodium (Chloride) 250 mls @ 167 mls/hr IVPB Q12H SANTINO PRN Reason: Protocol Last Admin: 11/26/16 09:04 Dose: 167 mls/hr Magnesium Oxide (Mag-Ox) 400 mg PO DAILY SANTINO PRN Reason: Protocol Last Admin: 11/25/16 10:18 Dose: 400 mg Mesalamine (Pentasa) 1,000 mg PO QID SANTINO PRN Reason: Protocol Last Admin: 11/25/16 21:15 Dose: 1,000 mg Silver Sulfadiazine (Silvadene 1% 25 Gm) 0 gm TP DAILY SANTINO PRN Reason: Protocol Last Admin: 11/25/16 10:19 Dose: 25 gm Tramadol HCl (Ultram) 50 mg PO Q8 PRN; Protocol PRN Reason: Pain, moderate (4-7) Triamcinolone Acetonide (Triamcinolone 0.25% Oint) 0 gm TOP BID SANTINO PRN Reason: Protocol Last Admin: 11/25/16 17:44 Dose: 1 applic - Labs Labs: 11/26/16 07:10 11/26/16 07:10 - Constitutional Appears: No Acute Distress, Unkempt - Head Exam Head Exam: ATRAUMATIC, NORMAL INSPECTION, NORMOCEPHALIC - Eye Exam Eye Exam: EOMI - ENT Exam ENT Exam: Mucous Membranes Moist - Neck Exam Neck Exam: Normal Inspection - Respiratory Exam Respiratory Exam: Decreased Breath Sounds. absent: Rales, Rhonchi, Wheezes - Cardiovascular Exam Cardiovascular Exam: +S1, +S2. absent: Gallop, Rubs, Murmur - GI/Abdominal Exam GI & Abdominal Exam: Soft. absent: Distended, Firm, Guarding, Rigid, Tenderness , Rebound - Neurological Exam Neurological Exam: Alert, Awake, CN II-XII Intact, Oriented x3 - Psychiatric Exam Psychiatric exam: Normal Affect, Normal Mood - Skin Skin Exam: Dry, Intact, Warm Additional comments: psoriatic patches Assessment and Plan - Assessment and Plan (Free Text) Plan: 50yo male with history of Crohn's disease, Psoriasis, Susac syndrome, cerebral vasculitis and depression presents with sepsis 2/2 right lower extremity wound 1. Sepsis 2/2 Right lower extremity wound -afebrile, no leukocytosis -first set of blood cultures growing methicillin resistant coag neg staph -Wound culture notable for MSSA -repeat blood cultures grew gram positive cocci in one bottle -Port-a-cath removed by IR -repeat blood cultures taken on 11/23 post port removal have thus far negative since; thus today is day #4 of 7-10 days of effective antibiotic therapy with vancomycin -Echocardiogram reviewed; poor window -Continue with abx for 7-10 days post port removal per ID recommendations -Tibia/fibula xray negative; see full report -Tylenol PRN for fevers -ID (Dr. Clay) and Surgery (Dr. Hinkle) consulted 2. Crohn's disease -Continue with Pentasa -Patient to be referred to surgeon at [facility] for potential colostomy reversal 3. Susac syndrome -Patient follows up with Dr. López for IVIG treatment 4. Depression -Psychiatry consulted; medications reviewed and managed per psych recommendations Patient seen and case discussed with attending, Dr. López <Levi López P - Last Filed: 11/27/16 13:19> Objective - Vital Signs/Intake and Output Vital Signs (last 24 hours): Temp Pulse Resp BP Pulse Ox 97.5 F L 100 H 20 134/86 94 L 11/27/16 10:56 11/27/16 10:56 11/27/16 10:56 11/27/16 10:56 11/27/16 10:56 - Medications Medications: Current Medications Acetaminophen (Tylenol 325mg Tab) 650 mg PO Q4H PRN; Protocol PRN Reason: Pain, Mild (1-3) Amitriptyline HCl (Elavil) 20 mg PO HS SANTINO PRN Reason: Protocol Last Admin: 11/26/16 21:50 Dose: 20 mg Benzocaine/Menthol (Cepacol Sore Throat) 1 patricia MT Q2H PRN; Protocol PRN Reason: Sore Throat Last Admin: 11/23/16 21:33 Dose: 1 patricia Famotidine (Pepcid) 20 mg PO 1000,2200 SANTINO PRN Reason: Protocol Last Admin: 11/27/16 09:31 Dose: 20 mg Vancomycin HCl 1.25 gm/ Sodium (Chloride) 250 mls @ 167 mls/hr IVPB Q12H SANTINO PRN Reason: Protocol Stop: 11/28/16 11:00 Last Admin: 11/27/16 09:31 Dose: 167 mls/hr Magnesium Oxide (Mag-Ox) 400 mg PO DAILY SANTINO PRN Reason: Protocol Last Admin: 11/27/16 09:31 Dose: 400 mg Mesalamine (Pentasa) 1,000 mg PO QID SANTINO PRN Reason: Protocol Last Admin: 11/27/16 09:31 Dose: 1,000 mg Silver Sulfadiazine (Silvadene 1% 25 Gm) 0 gm TP DAILY SANTINO PRN Reason: Protocol Last Admin: 11/27/16 09:32 Dose: 25 gm Tramadol HCl (Ultram) 50 mg PO Q8 PRN; Protocol PRN Reason: Pain, moderate (4-7) Triamcinolone Acetonide (Triamcinolone 0.25% Oint) 0 gm TOP BID SANTINO PRN Reason: Protocol Last Admin: 11/27/16 09:32 Dose: 1 applic - Labs Labs: 11/27/16 09:20 11/27/16 09:20 Attending/Attestation - Attestation I have personally seen and examined this patient.: Yes I have fully participated in the care of the patient.: Yes I have reviewed all pertinent clinical information, including history, physical exam and plan: Yes
[2016-11-26] MEDS: Mesalamine ER Cap 500 MG PO SCH ×4 (10:56→21:50)
[2016-11-26] MEDS: Triamcinolone 0.025% Oint(15 gm) TOP SCH ×2 (10:57→17:04)
[2016-11-26] MEDS: Silver Sulfadiazine 1% Cream (25 gm) TP SCH (10:57)
[2016-11-26] MEDS: Magnesium Oxide 400 mg Tab UD PO SCH (10:57)
--- NOTE | 2016-11-26 12:59 | PN ---
Shortly, the patient is a 50-year-old male, not known previous psychiatric history. The patient was admitted to the medical side, then was transferred to TCU for infected wound on the leg. Psych consult was called for evaluation of medications and due to policy of TCU that the patient is on psychotropic medication needs to be seen by psychiatrist. The patient was seen and examined today. The patient presented to be alert. The patient expressed his interest to be on less medications than he was on before. This scenario writer called to the pharmacy to confirm all of the medication. This scenario writer hold Paxil as well as Wellbutrin was discontinued. Seroquel was started to taper down, today it will be 100 mg; amitriptyline was increased to 20 mg. This scenario writer would suggest for this patient to be on 1 medication, but higher doses; the patient was in agreement with that. Besides that, there are no other complaints. OBJECTIVE: VITAL SIGNS: Stable. Temperature is 98.8, pulse is 96, blood pressure 121/78, respiration 20 and saturation is 95%. MEDICATIONS: Reviewed. Tylenol, Elavil 20 mg in the nighttime, Cepacol, Pepcid, magnesium oxide, Pentasa, Seroquel was discontinued today, Silvadene, tramadol as needed as well as vancomycin. LABORATORY DATA: Labs reviewed, most recently from today. There are no signs of granulocytosis. Chemistry within normal limits. Toxicology reviewed. MENTAL STATUS EXAMINATION: The patient presented to be alert and oriented, pleasant, cooperative. The patient had fair eye contact. Speech was kind of high volume, but the patient has [id number], that is why probably the patient is talking loudly. Mood described "I love you guys, but I want to get out of here". Affect was reactive. Mood congruent. Thought process was coherent and goal directed. Thought content, the patient denied visual, auditory or tactile hallucinations. Denied paranoid ideation. The patient denied thoughts of harming himself or others. Denied intent or plan. Insight and judgment improving. Impulses are well controlled. IMPRESSION: Most likely, the patient has mood disorder due to general medical condition. The patient has multiple medical issues. Please see medical team notes for more detailed information. The patient has autoimmune disease. Also, the patient has infected wound on the lower extremities, on antibiotics right now. PLAN: Continue current management. Continue current medication. The patient will be only on Elavil 20 mg at the nighttime, the rest of the medications was weaned off, this is what the patient wanted and the patient was not sure why he was taking Paxil, Wellbutrin as well as Seroquel. The patient was provided with information for outpatient clinics at [facility], Dr. Rj Escobar as well as [facility] and [facility]. This scenario writer doubt that the patient will be followed up with outpatient providers, but this scenario writer educated the patient about importance to see psychiatrist in the community if he needs to continue to take psychotropic medication. This scenario writer will like to emphasize the fact that Elavil was prescribed by neurologist, most likely for neuropathy. On top of that, this scenario writer had prolonged conversation with the patient's brother; as per brother, the patient did not verbalize any thoughts of killing himself, was functioning at his baseline and the patient's brother expressed no concerns about patient's safety. This scenario writer will sign off. Please re-consult if needed. Should you have any questions give me a call back. Thank you very much for letting me participate in care of your patient. Brandie Schaefer MD
--- NOTE | 2016-11-26 14:17 | PN ---
DATE: 11/26/2016 SUBJECTIVE: The patient seen in room 313, he is comfortable. No fevers and chills. PHYSICAL EXAMINATION: VITAL SIGNS: Temperature is 98, blood pressure 121/70, respiratory rate of 18. HEENT: Unremarkable. NECK: Supple. LUNGS: Decreased breath sounds. HEART: Normal S1 and S2. ABDOMEN: Soft and nontender. LABORATORY DATA: Reveals a white count of 5.2, hemoglobin of 14, platelets of 174. BUN of 14, creatinine of 1.0, vancomycin trough is 18. Microbiology reveals blood cultures are negative. The patient is on IV vancomycin. ASSESSMENT AND PLAN: This is a 50-year-old male seen earlier this morning in room 313, transition of care with methicillin resistant Staphylococcus epidermidis bacteremia secondary to Port-A-Cath, which was removed. The patient also with sensitive Staphylococcus aureus right ankle cellulitis, which is resolved. Currently, on vancomycin day number 4, we will treat 7 to 10 days of vancomycin with repeat cultures negative from the 11/23/2016, which would ishan the first day of effective antibiotic therapy. Ned Clay MD
[2016-11-27] MEDS: Magnesium Oxide 400 mg Tab UD PO SCH (09:31)
[2016-11-27] MEDS: Mesalamine ER Cap 500 MG PO SCH ×4 (09:31→21:49)
[2016-11-27] MEDS: Triamcinolone 0.025% Oint(15 gm) TOP SCH ×2 (09:32→17:50)
[2016-11-27] MEDS: Silver Sulfadiazine 1% Cream (25 gm) TP SCH (09:32)
[2016-11-27 09:37] LABS: BASO # 0.04 K/mm3 (0.0-2.0); BASO % 0.7 % (0.0-3.0); EOS # 0.1 (0.0-0.7); EOS % 2.3 % (1.5-5.0); GRAN # 4.11 (1.4-6.5); GRAN % 68.5 % (50.0-68.0); LYMPH # 1.3 (1.2-3.4); LYMPH % 21.3 % (22.0-35.0); MEAN CELL VOLUME 89.1 fl (80.0-105.0); MEAN CORPUSCULAR HEMOGLOBIN 31.3 pg (25.0-35.0); MEAN CORPUSCULAR HGB CONC 35.1 g/dl (31.0-37.0); MEAN PLATELET VOLUME 10.3 fl (7.0-11.0); MONO # 0.4 (0.1-0.6); MONO % 7.2 % (1.0-6.0); RED CELL DISTRIBUTION WIDTH 13.1 % (11.5-14.5)
[2016-11-27 09:42] LABS: ALB/GLOB RATIO 1.3 (1.1-1.8); ALKALINE PHOSPHATASE 86 U/L (38-126); ALT/SGPT 49 U/L (7-56); AST/SGOT 36 U/L (17-59); BILIRUBIN,TOTAL 0.8 mg/dL (0.2-1.3); BLOOD UREA NITROGEN 15 mg/dL (7-21); CALCIUM 9.8 mg/dL (8.4-10.5); CARBON DIOXIDE 26 mmol/L (21-33); CHLORIDE 102 mmol/L (98-107); GFR AFRICAN-AMERICAN > 60; GLUCOSE,RANDOM 113 mg/dL (70-110); POTASSIUM 4.1 mmol/L (3.6-5.0); SODIUM 141 mmol/L (132-148)
--- NOTE | 2016-11-27 12:35 | PN ---
DATE: 11/27/2016 SUBJECTIVE: The patient is in bed in no acute distress, nontoxic. PHYSICAL EXAMINATION: VITAL SIGNS: Temperature is 98, blood pressure is 130/70, and respiratory rate of 16. HEENT: Unremarkable. NECK: Supple. LUNGS: Decreased breath sounds. HEART: Normal S1 and S2. ABDOMEN: Examination is soft. LABORATORY EXAMINATION: Reveals the patient is on vancomycin. ASSESSMENT AND PLAN: This is a 51-year-old male, who I saw earlier this morning in room 313. The patient with methicillin-resistant Staphylococcus epidermidis bacteremia secondary to a Port-A-Cath, which was removed, also with a sensitive Staphylococcus aureus right ankle cellulitis, which has resolved. Today is day #5 of vancomycin, would complete 7-10 days of antibiotics and we will continue the present course. The vancomycin trough level of 18.3. Ned Clay MD
--- NOTE | 2016-11-27 20:33 | PN ---
DATE: 11/27/2016 SUBJECTIVE: This patient was seen and evaluated earlier today. The patient has no further discharge from rectum. The patient is doing well, looks much better. Today is his birthday. This patient has Susac syndrome, primary cerebral angiitis, being doing very well, history of Crohn's disease. PHYSICAL EXAMINATION VITAL SIGNS: Temperature 99.1, blood pressure 122/77, pulse 88, respirations 20, O2 saturation 97%. HEENT: Atraumatic. Anicteric. NECK: Supple. HEART: S1 and S2 heard. LUNGS: Bilateral air entry present. ABDOMEN: Soft and colostomy bag present in the left side of extremity. EXTREMITIES: Right leg dressing present. NEUROLOGICAL: Alert, oriented, and moves all the extremities. LABORATORY DATA: Hemoglobin 14.4, hematocrit 41, WBC 6.0, platelets 201. Chemistries, essentially unremarkable. IMPRESSION: This is a 51-year-old patient with Susac's syndrome, Crohn's disease, admitted with sepsis. There is a Staphylococcus aureus bacteremia secondary to the Port-A-Cath, which was removed. The patient also has Staphylococcus aureus, right ankle cellulitis. Clinically overall feeling better. He is being on IV antibiotics. Rectal discharge probably from the mild proctitis. The patient was advised to get previous mesalamine suppositories what he has at home to use it while during the hospital stay here. The patient did have a colonoscopy done, we will get that. We will continue stool for Clostridium difficile and also we will continue with rectal suppository mesalamine preparation what he was having at home to use it in the hospital. The patient is on Pentasa 4 g a day. We will continue that. The patient is on Ranitidine at home, presently getting Pepcid twice a day. We will continue that. Thank you very much for allowing us to participate in the care of the patient. Eric Okeefe MD
[2016-11-28 07:47] LABS: BASO # 0.03 K/mm3 (0.0-2.0); BASO % 0.7 % (0.0-3.0); EOS # 0.2 (0.0-0.7); EOS % 3.3 % (1.5-5.0); GRAN # 2.78 (1.4-6.5); GRAN % 60.5 % (50.0-68.0); HEMATOCRIT 39.4 % (42.0-52.0); LYMPH # 1.1 (1.2-3.4); LYMPH % 24.4 % (22.0-35.0); MEAN CELL VOLUME 88.9 fl (80.0-105.0); MEAN CORPUSCULAR HEMOGLOBIN 30.9 pg (25.0-35.0); MEAN CORPUSCULAR HGB CONC 34.8 g/dl (31.0-37.0); MEAN PLATELET VOLUME 9.5 fl (7.0-11.0); MONO # 0.5 (0.1-0.6); MONO % 11.1 % (1.0-6.0); WHITE BLOOD COUNT 4.6 10^3/ul (4.5-11.0)
[2016-11-28 07:56] LABS: ALB/GLOB RATIO 1.3 (1.1-1.8); ALKALINE PHOSPHATASE 77 U/L (38-126); ALT/SGPT 38 U/L (7-56); AST/SGOT 37 U/L (17-59); BILIRUBIN,TOTAL 0.7 mg/dL (0.2-1.3); BLOOD UREA NITROGEN 14 mg/dL (7-21); CALCIUM 9.1 mg/dL (8.4-10.5); CARBON DIOXIDE 24 mmol/L (21-33); CHLORIDE 105 mmol/L (98-107); GFR AFRICAN-AMERICAN > 60; GLUCOSE,RANDOM 117 mg/dL (70-110); POTASSIUM 3.8 mmol/L (3.6-5.0); SODIUM 142 mmol/L (132-148); TOTAL PROTEIN 7.6 g/dL (5.8-8.3)
[2016-11-28] MEDS: Magnesium Oxide 400 mg Tab UD PO SCH (10:12)
[2016-11-28] MEDS: Mesalamine ER Cap 500 MG PO SCH (10:13)
[2016-11-28] MEDS: Triamcinolone 0.025% Oint(15 gm) TOP SCH (10:13)
[2016-11-28] MEDS: Silver Sulfadiazine 1% Cream (25 gm) TP SCH (10:14)
[2016-11-28 16:23] VITALS: BP 129/82; PULSE 89; RESP 18; TEMP 98.8; O2SAT 96
--- NOTE | 2016-11-28 20:54 | CP.PCM.PN ---
Subjective - Date & Time of Evaluation Date of Evaluation: 11/27/16 Time of Evaluation: 20:00 - Subjective Subjective: No acute issues. Today is patient's birthday. HAs some itching at RLE and removed compression stocking. ROS: 12 ROS system negative Pain: denies Objective - Vital Signs/Intake and Output Vital Signs (last 24 hours): Temp Pulse Resp BP Pulse Ox 98.8 F 89 18 129/82 96 11/28/16 16:22 11/28/16 16:22 11/28/16 16:22 11/28/16 16:22 11/28/16 16:22 - Labs Labs: 11/28/16 07:30 11/28/16 07:30 - Constitutional Appears: Well - Respiratory Exam Respiratory Exam: Clear to Ausculation Bilateral, NORMAL BREATHING PATTERN - Cardiovascular Exam Cardiovascular Exam: REGULAR RHYTHM, +S1, +S2. absent: Murmur - Extremities Exam Extremities Exam: Full ROM, Normal Capillary Refill, Normal Inspection. absent : Joint Swelling, Pedal Edema - Skin Skin Exam: absent: Warm Additional comments: B/l chronic skin changes in ankles and dorusm feet. Not warm to touch; Assessment and Plan - Assessment and Plan (Free Text) Assessment: Mr. 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 #Cellulitis -afebrile; no leukocytosis -wound culture notable for MSSSa -repeat blood cultures grew gram + cocci in one bottle, presumed contaminant -mediport removed by IR -completing day 5 of 7 days abx course recommended by ID #Crohn's disease -continue with Petasa -patient to be referred to [facility] for potentially colostomy reversal -prn hydrocoritsone suppository per GI for rectal stool leakage Susac Syndrome -stable; f/u with Dr. López as outpatient for gammaglobulin treatment as needed #dispo Home
--- NOTE | 2016-11-28 20:59 | CP.PCM.DIS ---
Provider - Provider Date of Admission: 11/20/16 15:52 Attending physician: Radhames Hackett MD Primary care physician: Levi López MD Time Spent in preparation of Discharge (in minutes): 35 Hospital Course - Lab Results Lab Results: Micro Results 11/23/16 15:30 Blood Blood Culture - Final NO GROWTH AFTER 5 DAYS 11/23/16 15:30 Blood Gram Stain - Final TEST NOT PERFORMED 11/23/16 15:00 Blood Blood Culture - Final NO GROWTH AFTER 5 DAYS 11/23/16 15:00 Blood Gram Stain - Final TEST NOT PERFORMED 11/27/16 11:00 Stool C. difficile Antigen & Toxin A,B (M - Final 11/21/16 17:40 Blood-Thru Central Line Blood Culture - Final NO GROWTH AFTER 5 DAYS 11/21/16 17:40 Blood-Thru Central Line Gram Stain - Final TEST NOT PERFORMED 11/21/16 17:00 Blood-Thru Central Line Blood Culture - Final Coagulase Neg Staphylococcus 11/21/16 17:00 Blood-Thru Central Line Gram Stain - Final Most Recent Lab Values WBC 4.6 10^3/ul (4.5-11.0) D 11/28/16 07:30 RBC 4.43 10^6/uL (3.5-6.1) 11/28/16 07:30 Hgb 13.7 g/dL (14.0-18.0) L 11/28/16 07:30 Hct 39.4 % (42.0-52.0) L 11/28/16 07:30 MCV 88.9 fl (80.0-105.0) 11/28/16 07:30 MCH 30.9 pg (25.0-35.0) 11/28/16 07:30 MCHC 34.8 g/dl (31.0-37.0) 11/28/16 07:30 RDW 13.0 % (11.5-14.5) 11/28/16 07:30 Plt Count 193 10^3/uL (120.0-450.0) 11/28/16 07:30 MPV 9.5 fl (7.0-11.0) 11/28/16 07:30 Gran % 60.5 % (50.0-68.0) 11/28/16 07:30 Lymph % (Auto) 24.4 % (22.0-35.0) 11/28/16 07:30 [place] % (Auto) 11.1 % (1.0-6.0) H 11/28/16 07:30 Eos % (Auto) 3.3 % (1.5-5.0) 11/28/16 07:30 Baso % (Auto) 0.7 % (0.0-3.0) 11/28/16 07:30 Gran # 2.78 (1.4-6.5) 11/28/16 07:30 Lymph # 1.1 (1.2-3.4) L 11/28/16 07:30 [place] # 0.5 (0.1-0.6) 11/28/16 07:30 Eos # 0.2 (0.0-0.7) 11/28/16 07:30 Baso # 0.03 K/mm3 (0.0-2.0) 11/28/16 07:30 Sodium 142 mmol/L (132-148) 11/28/16 07:30 Potassium 3.8 mmol/L (3.6-5.0) 11/28/16 07:30 Chloride 105 mmol/L (98-107) 11/28/16 07:30 Carbon Dioxide 24 mmol/L (21-33) 11/28/16 07:30 Anion Gap 17 (10-20) 11/28/16 07:30 BUN 14 mg/dL (7-21) 11/28/16 07:30 Creatinine 1.0 mg/dL (0.8-1.5) 11/28/16 07:30 Est GFR ( Amer) > 60 11/28/16 07:30 Est GFR (Non-Af Amer) > 60 11/28/16 07:30 Random Glucose 117 mg/dL (70-110) H 11/28/16 07:30 Calcium 9.1 mg/dL (8.4-10.5) 11/28/16 07:30 Total Bilirubin 0.7 mg/dL (0.2-1.3) 11/28/16 07:30 AST 37 U/L (17-59) 11/28/16 07:30 ALT 38 U/L (7-56) 11/28/16 07:30 Alkaline Phosphatase 77 U/L (38-126) 11/28/16 07:30 Total Protein 7.6 g/dL (5.8-8.3) 11/28/16 07:30 Albumin 4.2 g/dL (3.0-4.8) 11/28/16 07:30 Globulin 3.3 gm/dL 11/28/16 07:30 Albumin/Globulin Ratio 1.3 (1.1-1.8) 11/28/16 07:30 Vancomycin Trough 18.3 ug/mL (5.0-10.0) H* 11/22/16 16:49 - Hospital Course Hospital Course: Mr. 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 #Cellulitis -afebrile; no leukocytosis -wound culture notable for MSSSa -repeat blood cultures grew gram + cocci in one bottle, presumed contaminant -mediport removed by IR -patient completed 6/7 day course of vancomycin for intended 7 day course per ID recommendations. Patient told that he should wait ideally to complete 7th day. However, he was adamant about leaving due this being his birthday weekend. Will plan on f/u with ID to discuss any utility of one day of PO abx. Patient instructed to call/re present should he have any consistitional symptoms are signs of worsening cellulitis. #Crohn's disease -continue with Petasa -patient to be referred to [facility] for potentially colostomy reversal -prn hydrocoritsone suppository per GI for rectal stool leakage; -has f/u with Dr. Sayr Frankelac Syndrome -stable; f/u with Dr. López as outpatient for gammaglobulin treatment as needed #dispo Home Discharge Exam - Head Exam Head Exam: ATRAUMATIC, NORMOCEPHALIC - Eye Exam Eye Exam: EOMI, Normal appearance, PERRL - Neck Exam Neck exam: Full Rom - Respiratory Exam Respiratory Exam: Clear to PA & Lateral. absent: Accessory Muscle Use - Cardiovascular Exam Cardiovascular Exam: RRR - GI/Abdominal Exam GI & Abdominal Exam: Normal Bowel Sounds - Extremities Exam Additional comments: Erythema in ankles and dorsum of feet unchanged; Not warm to touchl likely chronic c/w venous stasis change Discharge Plan - Discharge Medications Prescriptions: Hydrocortisone [Anusol-Hc] 25 mg RC DAILY 30 Days sup - Follow Up Plan Condition: GOOD Disposition: HOME/ ROUTINE Instructions: Colostomy Care (DC), Crohn Disease (DC), Depression (DC), Psoriasis (DC), Cellulitis (DC), Cellulitis (GEN) Additional Instructions: F/u with GI MD As per GI MD jonathon will be called to patient pharmacy tomorrow morning. Continue Home meds as directed by PMD Referrals: Levi López MD [Primary Care Provider] - Clinical Quality Measures - CQM - Stroke Antithrombotic Prescribed: Medical Contraindication Present Contranindication/Reason for not providing: Risk for Bleeding - CQM - VTE Did patient receive overlap therapy during hosptialization?: No If yes, what was given to the patient?: heparin If no, please select a reason why?: Risk of Bleeding - CQM - Heart Failure Ejection Fraction: 40 % or Greater - Date & Time of Discharge Summary Date of Discharge Summary: 11/28/16 Time of Discharge Summary: 17:00
--- NOTE | 2016-11-29 10:17 | PN ---
DATE: 11/28/2016 SUBJECTIVE: The patient is in bed in no acute distress, nontoxic. PHYSICAL EXAMINATION: VITAL SIGNS: Temperature is 99, blood pressure is 120/70, respiratory rate of 20, heart rate of 100. HEENT: Unremarkable. NECK: Supple. LUNGS: Have decreased breath sounds. HEART: Normal S1, S2. ABDOMEN: Soft, nontender. LABORATORY EXAMINATION. Reveals a white count is 4.6, hemoglobin of 13, platelets of 193. Chemistries reveals a BUN of 14, creatinine of 1.0. Vancomycin trough level is at 18. Coagulase negative staph. ASSESSMENT AND PLAN: This is a 51-year-old male who was seen earlier this morning in room 313 with methicillin-resistant Staphylococcus epidermidis bacteremia secondary to a Port-A-Cath which was removed. The patient also had a sensitive Staphylococcus aureus right ankle cellulitis, which is resolved. Today is day number 6 of vancomycin. From the time the blood cultures were negative would complete 7 to 10 days of vancomycin, review of orders reveals the patient's vancomycin to be active, continue the vancomycin. The patient's creatinine is holding at 1.0. GFR is greater than 60. Ned Clay MD
== END 2016-11-28 16:53 | disposition home or self-care (01) | DRG 314 ==
LOC: TRCU 15:52
PROVIDERS: ADMIT Family Medicine; ATTEND Family Medicine
PROC: F07Z9FZ Gait Training/Functional Ambulation Treatment using Assistive, Adaptive, Supportive or Protective Equipment (ICD-10-PCS; principal; 2016-11-21)
PROC: F07M6ZZ Therapeutic Exercise Treatment of Musculoskeletal System - Whole Body (ICD-10-PCS; 2016-11-21)
PROC: F08Z4ZZ Home Management Treatment (ICD-10-PCS; 2016-11-22)
DX: T80.211A Bloodstream infection due to central venous catheter, initial encounter (principal); A41.1 Sepsis due to other specified staphylococcus; G93.49 Other encephalopathy; R65.20 Severe sepsis without septic shock; K50.90 Crohn's disease, unspecified, without complications; L03.115 Cellulitis of right lower limb; G62.9 Polyneuropathy, unspecified; B95.61 Methicillin susceptible Staphylococcus aureus infection as the cause of diseases classified elsewhere; F06.30 Mood disorder due to known physiological condition, unspecified; F32.89 Other specified depressive episodes; G47.00 Insomnia, unspecified; H91.90 Unspecified hearing loss, unspecified ear; I77.6 Arteritis, unspecified; L40.9 Psoriasis, unspecified; Y84.8 Other medical procedures as the cause of abnormal reaction of the patient, or of later complication, without mention of misadventure at the time of the procedure; Z79.899 Other long term (current) drug therapy; Z87.891 Personal history of nicotine dependence; Z90.49 Acquired absence of other specified parts of digestive tract; Z93.3 Colostomy status; J02.9 Acute pharyngitis, unspecified; R00.0 Tachycardia, unspecified

== ENCOUNTER 2016-11-23 10:02 | Day surgery (SDC) | payer MEDICARE, MEDICAID ==
[2016-11-23] MEDS ORDERED: Lidocaine 2% Inj (20ml) ONE (10:25)
[2016-11-23] MEDS ORDERED: Midazolam 2 MG/2 ML VIAL ONE (10:39)
[2016-11-23] MEDS ORDERED: Oxycodone/Acetaminophen 5/325 mg Tab PO PRN (11:39)
[2016-11-23] MEDS ORDERED: Sodium Chloride 0.45% 1,000 ML IV SCH (11:45)
[2016-11-23 13:01] VITALS: BP 104/55; PULSE 66; RESP 18; TEMP 98.2; O2SAT 98
--- NOTE | 2016-11-23 20:05 | VASCULAR ---
PROCEDURE: Removal of tunneled l right internal jugular venous access port. CLINICAL HISTORY: Bacteremia. Infected port. PHYSICIAN(S): Jose Suero M.D. TECHNIQUE: The relative risks and indications of the procedure were explained to the patient and consent obtained. The patient was placed supine on the arteriogram table and the right neck and chest prepped and draped usual sterile fashion. Conscious sedation and monitoring were provided throughout the procedure by a nurse. 1% Xylocaine was used to anesthetize the skin and soft tissues at the port. A 4 cm incision was made. The port was bluntly dissected and removed. The catheter was removed under fluoroscopic guidance. No retained catheter fragments were seen. The pocket was lavaged with normal saline. The pocket was closed in 2 layers. The patient tolerated the procedure well. The catheter tip was sent for culture IMPRESSION: 1. Removal of tunneled right internal jugular venous access port.
--- NOTE | 2016-11-24 12:10 | CP.PCM.CON ---
<Luis Felipe Willams - Last Filed: 11/24/16 12:10> History of Present Illness - History of Present Illness History of Present Illness: 50 y.o male with PMH of psoriasis, Susac syndrome, Crohn's disease, depression, S/P right chest wall port-a-cath placement is seen for right lower extremity ulcerations. Patient was admitted for sepsis and infection of the ulcers and is improving. He reports the ulceration began as a scab which was peeled off. Patient reports a few days ago, there was purulence, drainage, and odor coming from the scabs/ulcerations. He reports having pain during that time as well. Pt reports the ulceration has since improved since admission. Patient reports no pain to the lower extremity. Denies calf pain or tenderness. He denies n/v/ sob/cp/chills or f. No other pedal complaints at this time. 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) Other/Comment: slight speech impediment - RENAL Hx Chronic Kidney Disease: No - ENDOCRINE/METABOLIC Hx Endocrine Disorders: No - HEMATOLOGICAL/ONCOLOGICAL Hx Blood Transfusions: No Hx Blood Transfusion Reaction: No - INTEGUMENTARY Hx Dermatological Problems: Yes Hx Psoriasis: Yes - MUSCULOSKELETAL/RHEUMATOLOGICAL Hx Musculoskeletal Disorders: Yes - GASTROINTESTINAL Hx Gastrointestinal Disorders: Yes Hx Colostomy: Yes Hx Crohn's Disease: Yes (dx at 15 yrs old) - GENITOURINARY/GYNECOLOGICAL Hx Genitourinary Disorders: No - PSYCHIATRIC Hx Emotional Abuse: No Hx Physical Abuse: No Hx Substance Use: No - SURGICAL HISTORY Hx Surgeries: Yes - ANESTHESIA Hx Anesthesia Reactions: No Hx Malignant Hyperthermia: No Meds Allergies/Adverse Reactions: Allergies Allergy/AdvReac Type Severity Reaction Status Date / Time homeopathic substance (from Allergy Intermediate RASH Uncoded 11/17/16 15:26 Rosario) [facility] SOAP Allergy RASH Uncoded 10/04/17 15:26 - Medications Medications: Current Medications Acetaminophen (Tylenol 325mg Tab) 650 mg PO Q4 PRN PRN Reason: Pain, Mild (1-3) Sodium Chloride (Sodium Chloride 0.45%) 1,000 mls @ 80 mls/hr IV .[id number] SANTINO Ondansetron HCl (Zofran Inj) 4 mg IVP Q6H PRN PRN Reason: Nausea/Vomiting Oxycodone/Acetaminophen (Percocet 5/325 Mg Tab) 1 tab PO Q4H PRN PRN Reason: Pain, moderate (4-7) Stop: 11/26/16 11:40 Physical Exam - Constitutional Appears: Well, Non-toxic, No Acute Distress - Extremities Exam Additional comments: Vasc: DP and PT 1/4 bilaterally, Temperature cool to cool from proximal knees to distal toes, CFT <3 seconds x10 digits, mild edema present bilaterally Ortho: No pain with palpation to the ulceration sites, no pain or tenderness with palpation to the calves or calves squeeze test, MM is 5/5 in dorsiflexion, plantarflexion, inversion, and eversion Neuro: protective and gross sensation diminished bilaterally Derm: two ulcerations noted to the right lower extremity. Ulceration #1: superfical ulceration located on anterior lower 2/3 of right leg measures approximately 1cm x 1cm x .1 cm; wound base is granular with no fibrotic tissue noted, periwound is erthyematous in nature but no streaking cellulitis noted, no odor, no active drainage, no tunneling, no undermining, no probe to bone. Ulceration #2: superficial ulceration located on the posterior lower 1/3 of leg measures approximately .5cm x .5cm x .1 cm, wound base is granular with no fibrotic tissue noted, periwound is erythematous in nature but no streaking cellulitis noted, no odor, no active drainage, no tunneling, no underming, no proble to bone. - Neurological Exam Neurological exam: Alert, Oriented x3 - Psychiatric Exam Psychiatric exam: Normal Affect, Normal Mood Results - Vital Signs Recent Vital Signs: Last Vital Signs Temp 98.2 F 11/23/16 12:50 Pulse 66 11/23/16 12:50 Resp 18 11/23/16 12:50 BP 104/55 L 11/23/16 12:50 Pulse Ox 98 11/23/16 12:50 Assessment & Plan - Assessment and Plan (Free Text) Assessment: 50 y.o male with PMH of psoriasis, Susac syndrome, Crohn's disease, depression, S/P right chest wall port-a-cath placement is seen for right lower extremity ulceration and resolving cellulitis Plan: Patient seen and evaluated at bedside Discussed the plan in detail with attending Dr. Garsia Vitals, labs, and charts reviewed (afebrile, absent leuckocytosis WBC=4.8) Continue local wound care with silvadene and dsd to the ulceration sites and LAKHWINDER compression X-ray results-R no OM, no gas emphysema; unremarkable R tib-fib x-ray U/S results- R no DVT Blood culture on 11/21/16 - coagulase negative staphylococcus Continue Abx per ID Ulcerations stable per podiatry Patient may WBAT to the right lower extremity. Will continue to follow while in house Thank you for the consult <Robin Garsia - Last Filed: 11/25/16 07:30> Results - Vital Signs Recent Vital Signs: Last Vital Signs Temp 98.2 F 11/23/16 12:50 Pulse 66 11/23/16 12:50 Resp 18 11/23/16 12:50 BP 104/55 L 11/23/16 12:50 Pulse Ox 98 11/23/16 12:50 Attending/Attestation - Attestation I have personally seen and examined this patient.: Yes I have fully participated in the care of the patient.: Yes I have reviewed all pertinent clinical information: Yes
--- NOTE | 2016-11-25 12:19 | CP.PCM.PN ---
<Luis Felipe Willams - Last Filed: 11/25/16 12:16> Subjective - Date & Time of Evaluation Date of Evaluation: 11/25/16 Time of Evaluation: 12:16 - Subjective Subjective: 50 y.o male with PMH of psoriasis, Susac syndrome, Crohn's disease, depression, S/P right chest wall port-a-cath placement is seen for right lower extremity ulcerations. Patient reports feeling well. He reports his dressing being changed daily. Dressing is clean, dry and intact. Patient denies of pain. Denies n/v/sob/cp/chills or f. No other pedal complaints at this time. Objective - Vital Signs/Intake and Output Vital Signs (last 24 hours): Temp Pulse Resp BP Pulse Ox 98.2 F 66 18 104/55 L 98 11/23/16 12:50 11/23/16 12:50 11/23/16 12:50 11/23/16 12:50 11/23/16 12:50 - Constitutional Appears: Well, Non-toxic, No Acute Distress - Extremities Exam Additional comments: Vasc: DP and PT 1/4 bilaterally, Temperature cool to cool from proximal knees to distal toes, CFT <3 seconds x10 digits, mild edema present bilaterally Ortho: No pain with palpation to the ulceration sites, no pain or tenderness with palpation to the calves or calves squeeze test, MM is 5/5 in dorsiflexion, plantarflexion, inversion, and eversion Neuro: protective and gross sensation diminished bilaterally Derm: two ulcerations noted to the right lower extremity. Ulceration #1: superfical ulceration located on anterior lower 2/3 of right leg measures approximately 1cm x 1cm x .1 cm; wound base is granular with no fibrotic tissue noted, periwound is erthyematous in nature but no streaking cellulitis noted, no odor, no active drainage, no tunneling, no undermining, no probe to bone. Ulceration #2: superficial ulceration located on the posterior lower 1/3 of leg measures approximately .5cm x .5cm x .1 cm, wound base is granular with no fibrotic tissue noted, periwound is erythematous in nature but no streaking cellulitis noted, no odor, no active drainage, no tunneling, no underming, no proble to bone. - Neurological Exam Neurological Exam: Alert, Awake - Psychiatric Exam Psychiatric exam: Normal Affect, Normal Mood Assessment and Plan - Assessment and Plan (Free Text) Assessment: 50 y.o male with PMH of psoriasis, Susac syndrome, Crohn's disease, depression, S/P right chest wall port-a-cath placement is seen for right lower extremity ulceration, improving Plan: Patient seen and evaluated at bedside Discussed the plan in detail with attending Dr. Garsia Vitals, labs, and charts reviewed (afebrile, absent leuckocytosis WBC=4.7) Patient dressing is changed today. Kept dressing on. Podiatry did not change dressing Continue local wound care with silvadene and dsd to the ulceration sites and LAKHWINDER compression X-ray results-R no OM, no gas emphysema; unremarkable R tib-fib x-ray U/S results- R no DVT Blood culture on 11/21/16 - coagulase negative staphylococcus Continue Abx per ID Patient may WBAT to the right lower extremity. Ulcerations stable per podiatry Continue with daily dressing change. Patient can f/u in wound care once discharge within 1 week. Podiatry will sign off. Thank you. Please re-consult as needed. <Robin Garsia - Last Filed: 11/25/16 18:18> Objective - Vital Signs/Intake and Output Vital Signs (last 24 hours): Temp Pulse Resp BP Pulse Ox 98.2 F 66 18 104/55 L 98 11/23/16 12:50 11/23/16 12:50 11/23/16 12:50 11/23/16 12:50 11/23/16 12:50 Attending/Attestation - Attestation I have personally seen and examined this patient.: Yes I have fully participated in the care of the patient.: Yes I have reviewed all pertinent clinical information, including history, physical exam and plan: Yes
== END 2016-11-23 13:35 ==
LOC: SDSVAS 10:02
PROVIDERS: ATTEND Radiology Vascular & Interventional Radiology
DX: T80.218A Other infection due to central venous catheter, initial encounter (principal); Y84.8 Other medical procedures as the cause of abnormal reaction of the patient, or of later complication, without mention of misadventure at the time of the procedure; K50.90 Crohn's disease, unspecified, without complications; G93.49 Other encephalopathy; E53.8 Deficiency of other specified B group vitamins; L40.9 Psoriasis, unspecified
CPT/HCPCS: 36590; 87070; 99152; J1644; J2250; J2405; J3010; J7030; J7040

== ENCOUNTER 2017-01-24 09:00 | Day surgery (SDC) | payer MEDICARE, MEDICAID ==
[2016-12-28 18:26] VITALS: BMI 38.7
[2017-01-24 09:38] LABS: BASO # 0.01 K/mm3 (0.0-2.0); BASO % 0.2 % (0.0-3.0); EOS # 0.1 (0.0-0.7); EOS % 2.6 % (1.5-5.0); GRAN # 3.6 (1.4-6.5); HEMATOCRIT 39.8 % (42.0-52.0); LYMPH # 0.9 (1.2-3.4); LYMPH % 18.5 % (22.0-35.0); MEAN CELL VOLUME 90.5 fl (80.0-105.0); MEAN CORPUSCULAR HEMOGLOBIN 30.9 pg (25.0-35.0); MEAN CORPUSCULAR HGB CONC 34.2 g/dl (31.0-37.0); MEAN PLATELET VOLUME 9.8 fl (7.0-11.0); MONO # 0.4 (0.1-0.6); MONO % 7.7 % (1.0-6.0); RED CELL DISTRIBUTION WIDTH 13.5 % (11.5-14.5); WHITE BLOOD COUNT 5.1 10^3/ul (4.5-11.0)
[2017-01-24 09:49] LABS: BLOOD UREA NITROGEN 13 mg/dL (7-21); CALCIUM 9.2 mg/dL (8.4-10.5); CARBON DIOXIDE 28 mmol/L (21-33); CHLORIDE 105 mmol/L (98-107); GFR AFRICAN-AMERICAN > 60; GLUCOSE,RANDOM 99 mg/dL (70-110); POTASSIUM 3.8 mmol/L (3.6-5.0); SODIUM 142 mmol/L (132-148)
[2017-01-24 09:55] LABS: INR 1.15 (0.93-1.08); PARTIAL THROMBOPLASTIN TIME 29.6 Seconds (25.1-36.5)
[2017-01-24] MEDS ORDERED: Lidocaine 2% Inj (20ml) ONE (10:56)
[2017-01-24] MEDS ORDERED: Midazolam 2 MG/2 ML VIAL ONE ×3 (10:57→11:39)
[2017-01-24] MEDS ORDERED: Oxycodone/Acetaminophen 5/325 mg Tab PO PRN (12:11)
[2017-01-24] MEDS ORDERED: Sodium Chloride 0.45% 1,000 ML IV SCH (12:15)
[2017-01-24 13:20] VITALS: RESP 20; TEMP 97.7
[2017-01-24 14:10] VITALS: BP 147/75; PULSE 80; O2SAT 99
--- NOTE | 2017-01-24 19:07 | VASCULAR ---
PROCEDURE: Ultrasound and fluoroscopic right internal jugular venous access port. 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 Needs port for gamma globulin infusion PHYSICIAN(S): Jose Suero M.D. TECHNIQUE: The relative risks and indications of the procedure were explained to the patient and consent obtained. The patient was placed supine on the arteriogram table and the right neck and chest prepped and draped in the usual sterile fashion. Conscious sedation monitoring was provided throughout the procedure by a nurse. Antibiotics were given prior to the procedure. Under direct ultrasound guidance, the right internal jugular vein was punctured with a micro-puncture set. A 0.035 angled Glidewire was advanced into the IVC. A 4 cm incision was made below the right clavicle and the pocket blunted dissected. A 8 Lao single-lumen catheter, 23 cm long, was advanced to the SVC/RA junction. The catheter was trimmed and attached to the port. The port aspirates and injects easily. The port was placed in the pocket and closed in 2 layers. The patient tolerated the procedure well. IMPRESSION: Ultrasound and fluoroscopically placed right internal jugular venous access port.
== END 2017-01-24 14:05 | disposition home or self-care (01) ==
LOC: SDSVAS 09:00
PROVIDERS: ATTEND Radiology Vascular & Interventional Radiology
DX: I87.8 Other specified disorders of veins (principal)
CPT/HCPCS: 36415; 36561; 77001; 80048; 85025; 85610; 85730; 99152; 99153; C1769; C1788; J0690; J1644; J2250; J2405; J3010; J7030 ×2

== ENCOUNTER 2017-04-22 12:13 | Day surgery (SDC) | payer MEDICARE ==
[2017-04-19 11:35] VITALS: BMI 32.4
[2017-04-22 13:28] LABS: BASO # 0.02 K/mm3 (0.0-2.0); BASO % 0.3 % (0.0-3.0); EOS # 0.2 (0.0-0.7); EOS % 2.6 % (1.5-5.0); GRAN # 4.27 (1.4-6.5); GRAN % 68.8 % (50.0-68.0); HEMOGLOBIN 13.4 g/dL (14.0-18.0); LYMPH # 1.3 (1.2-3.4); LYMPH % 21.4 % (22.0-35.0); MEAN CELL VOLUME 91.7 fl (80.0-105.0); MEAN CORPUSCULAR HEMOGLOBIN 30.8 pg (25.0-35.0); MEAN CORPUSCULAR HGB CONC 33.6 g/dl (31.0-37.0); MEAN PLATELET VOLUME 10.2 fl (7.0-11.0); MONO # 0.4 (0.1-0.6); MONO % 6.9 % (1.0-6.0); RBC 4.35 10^6/uL (3.5-6.1); RED CELL DISTRIBUTION WIDTH 14.3 % (11.5-14.5); WHITE BLOOD COUNT 6.2 10^3/ul (4.5-11.0)
[2017-04-22 13:38] LABS: BLOOD UREA NITROGEN 10 mg/dL (7-21); CALCIUM 9.7 mg/dL (8.4-10.5); GFR AFRICAN-AMERICAN > 60; GFR NON-AFRICAN AMERICAN > 60
[2017-04-22 13:40] LABS: INR 1.04 (0.93-1.08); PARTIAL THROMBOPLASTIN TIME 32.8 Seconds (25.1-36.5); PROTHROMBIN TIME 11.9 SECONDS (9.4-12.5)
[2017-04-22] MEDS ORDERED: Lidocaine 2% Inj (20ml) ONE (14:01)
[2017-04-22] MEDS ORDERED: HEPARIN SODIUM/NS 1,000 ML IV ONE (14:01)
[2017-04-22] MEDS ORDERED: Midazolam 2 MG/2 ML VIAL ONE ×2 (15:05→15:17)
[2017-04-22] MEDS ORDERED: Oxycodone/Acetaminophen 5/325 mg Tab PO PRN (15:57)
[2017-04-22] MEDS ORDERED: Sodium Chloride 0.45% 1,000 ML IV SCH (16:00)
[2017-04-22 16:18] VITALS: TEMP 98
[2017-04-22 16:21] VITALS: O2SAT 98
[2017-04-22 18:36] VITALS: RESP 18
[2017-04-22 18:45] VITALS: BP 128/77; PULSE 92
--- NOTE | 2017-04-22 21:01 | VASCULAR ---
PROCEDURE: LeftUpper extremity venous access port. CLINICAL HISTORY: Very limited IV access. Frequent infusions. Needs port PHYSICIAN(S): Jose Suero M.D. TECHNIQUE: The relative risks and indications of the procedure were explained to the patient and consent obtained. The patient was placed supine on the arteriogram table and the left arm prepped and draped in the usual sterile fashion. Conscious sedation monitoring was provided throughout the procedure by a nurse. Antibiotics were given prior to the procedure. A tourniquet was applied the left axilla. Under direct ultrasound guidance, the left brachial vein was punctured with a micro-puncture set. A 0.035 angled Glidewire was advanced into the IVC. A 4 cm incision was made at the venous access site and the pocket blunted dissected. A 6 Greek single-lumen catheter, 47 cm long, was advanced to the SVC/RA junction. The catheter was trimmed and attached to the port. The port aspirates and injects easily. The port was placed in the pocket and closed in 2 layers. The patient tolerated the procedure well. IMPRESSION: Ultrasound and fluoroscopically placed left upper extremity venous access port.
== END 2017-04-22 17:45 | disposition home or self-care (01) ==
LOC: SDSVAS 12:13
PROVIDERS: ATTEND Radiology Vascular & Interventional Radiology
DX: Z45.2 Encounter for adjustment and management of vascular access device (principal); B95.8 Unspecified staphylococcus as the cause of diseases classified elsewhere
CPT/HCPCS: 36415; 36561; 76937; 77001; 80048; 85025; 85610; 85730; 99152; C1769; C1788; J0690; J1644; J2250; J2405; J3010; J7030

== ENCOUNTER 2017-07-22 20:09 | Inpatient (IN) | payer MEDICAID, MEDICARE ==
[2017-07-22 21:01] VITALS: BMI 33.2
[2017-07-22] MEDS ORDERED: Piperacillin/Tazobact 3.375 gm 100 ML IVPB STA (21:19)
[2017-07-22] MEDS ORDERED: Vancomycin 1gm in NS 250ml 1 GM/250 ML BAG IVPB STA (21:19)
[2017-07-22] MEDS ORDERED: Sodium Chloride 0.9% 500 ML IV STA (21:20)
--- NOTE | 2017-07-22 21:23 | ED PDOC ---
Arrival/HPI - General Chief Complaint: GI Problem Time Seen by Provider: 07/22/17 21:07 Historian: Patient - History of Present Illness Narrative History of Present Illness (Text): 07/22/17 21:20 A 51 year old male, whose past medical history includes Crohn's disease and colostomy, presents to the emergency department for a complaint of 2 day duration pain and swelling tp the second digit on the left foot. The patient's notes that he has also been vomiting for the last 2 days. The patient denies chills, headache, dizziness, chest pain, shortness of breath, dyspnea on exertion, cough, abdominal pain, nausea, diarrhea, back pain, neck pain, urinary /bowel changes, or any other complaint. PMD: Dr. 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) Other/Comment: slight speech impediment - Renal Hx Renal Disorder: No - Endocrine/Metabolic Hx Endocrine Disorders: No - Hematological/Oncological Hx Blood Transfusions: No Hx Blood Transfusion Reaction: No - Integumentary Hx Dermatological Disorder: Yes Hx Psoriasis: Yes - Musculoskeletal/Rheumatological Hx Musculoskeletal Disorders: Yes - Gastrointestinal Hx Gastrointestinal Disorders: Yes Hx Colostomy: Yes Hx Crohn's Disease: Yes (dx at 15 yrs old) - Genitourinary/Gynecological Hx Genitourinary Disorders: No - Psychiatric Hx Emotional Abuse: No Hx Physical Abuse: No Hx Substance Use: No - Surgical History Other/Comment: colostomy bag. abdominal sx - Anesthesia Hx Anesthesia Reactions: No Hx Malignant Hyperthermia: No - Suicidal Assessment Feels Threatened In Home Enviroment: No Family/Social History - Physician Review Nursing Documentation Reviewed: Yes Family/Social History: No Known Family HX Smoking Status: Former Smoker Hx Alcohol Use: No Hx Substance Use: No Allergies/Home Meds Allergies/Adverse Reactions: Allergies homeopathic substance (from Rosario) Allergy (Intermediate, Uncoded 11/17/16 15: 26) RASH [facility] SOAP Allergy (Uncoded 11/17/16 15:26) RASH Home Medications: Home Meds Medication Instructions Recorded Confirmed Bupropion HCl [Bupropion Xl] 150 mg PO DAILY 07/15/11 07/22/17 QUEtiapine [Seroquel XR] 200 mg PO HS 07/15/11 07/22/17 Potassium Chloride [K-Dur 20 mEq 20 meq PO QOTHERDAY 09/30/15 07/22/17 ER Tab] Mesalamine ER Cap [Pentasa] 2 cap PO QID 11/17/16 07/22/17 Cholecalciferol [Vitamin D 1000 IU] 50,000 unit PO WED 02/12/17 07/22/17 PARoxetine [Paxil] 10 mg PO DAILY 02/12/17 07/22/17 Pregabalin [Lyrica] 50 mg PO BID 02/12/17 07/22/17 Amitriptyline [Elavil] 10 mg PO HS 04/19/17 07/22/17 Review of Systems - Physician Review All systems were reviewed & negative as marked: Yes - Review of Systems Constitutional: absent: Night Sweats Respiratory: absent: SOB, Cough Cardiovascular: absent: Chest Pain, HOLLIS Gastrointestinal: Vomiting. absent: Abdominal Pain, Stool Changes, Diarrhea, Nausea Genitourinary Male: absent: Urinary Output Changes Musculoskeletal: Other (Left foot, 2nd digit pain and swelling.). absent: Back Pain, Neck Pain Neurological: absent: Headache, Dizziness Physical Exam Vital Signs Reviewed: Yes Vital Signs Temp Pulse Resp BP Pulse Ox 07/22/17 23:59 98.9 F 104 H 18 127/75 99 07/22/17 22:30 107 H 18 133/69 95 07/22/17 21:34 100.5 F H 07/22/17 21:09 100.5 F H 121 H 20 125/57 L 94 L Temperature: Febrile Blood Pressure: Hypotensive Pulse: Tachycardic Respiratory Rate: Normal Appearance: Positive for: Non-Toxic, Comfortable Pain Distress: None Mental Status: Positive for: Alert and Oriented X 3 - Systems Exam Head: Present: Atraumatic, Normocephalic Pupils: Present: PERRL Extroacular Muscles: Present: EOMI Conjunctiva: Present: Normal Mouth: Present: Moist Mucous Membranes Neck: Present: Normal Range of Motion Respiratory/Chest: Present: Clear to Auscultation, Good Air Exchange. No: Respiratory Distress, Accessory Muscle Use Cardiovascular: Present: Regular Rate and Rhythm, Normal S1, S2. No: Murmurs Abdomen: Present: Ostomy Tubes (Colostomy Tube intact). No: Tenderness Back: Present: Normal Inspection Upper Extremity: Present: Normal Inspection. No: Cyanosis, Edema Lower Extremity: Present: Swelling (2nd digit on left foot swelling), Other ( 2nd digit on left foot ulcer and cellulitic. ) Neurological: Present: GCS=15, CN II-XII Intact, Speech Normal Skin: Present: Warm, Dry, Normal Color. No: Rashes Psychiatric: Present: Alert, Oriented x 3, Normal Insight, Normal Concentration Medical Decision Making ED Course and Treatment: 07/22/17 21:26 Impression: A 51 year old male presents to the emergency department for a complaint of swelling and pain to the second digit on the left foot. Plan: -- EKG -- Chest/ Left Foot X-ray -- Blood/ Urine Culture -- Urinalysis -- Labs -- Tylenol, Zofran, Vancomycin, Zosyn, IV Fluids -- Reassess and disposition Progress Notes: 07/22/17 22:18: Case discussed in detail with Dr. López who requests hospitalist admission. EKG: Ordered, reviewed, and independently interpreted the EKG. Rate : 107 BPM Rhythm : Sinus Tachycardia 07/22/17 23:08: Case discussed with Dr. Hackett who requests patient be admitted to hospitalist's service. Case discussed in detail with Dr. Diaz accepts patient. - Lab Interpretations Lab Results: 07/22/17 21:53 07/22/17 21:53 Lab Results 07/22/17 21:53: Sodium 140, Chloride 100, Potassium 3.8, Carbon Dioxide 25, Anion Gap 18, BUN 17, Creatinine 1.2, Est GFR ( Amer) > 60, Est GFR (Non- Af Amer) > 60, Random Glucose 113 H, Calcium 9.3, Magnesium 1.3 L, Total Bilirubin 1.5 H, AST 32, ALT 26, Alkaline Phosphatase 73, Lactate Dehydrogenase 455, Total Creatine Kinase 227, Troponin I 0.01 D, Total Protein 8.1, Albumin 4.4, Globulin 3.6, Albumin/Globulin Ratio 1.2 07/22/17 21:53: PT 14.9 H, INR 1.30 H, APTT 30.2 07/22/17 21:53: WBC 7.3 D, RBC 4.14, Hgb 12.7 L, Hct 37.0 L, MCV 89.4, MCH 30.7 , MCHC 34.3, RDW 14.2, Plt Count 139, MPV 10.0, Gran % 78.8 H, Lymph % (Auto) 9.0 L, Crockett % (Auto) 12.0 H, Eos % (Auto) 0.1 L, Baso % (Auto) 0.1, Gran # 5.78 , Lymph # (Auto) 0.7 L, Crockett # (Auto) 0.9 H, Eos # (Auto) 0.0, Baso # (Auto) 0.01 07/22/17 21:53: pO2 55, VBG pH 7.43, VBG pCO2 39.0 L, VBG HCO3 25.9, VBG Total CO2 27.1, VBG O2 Sat (Calc) 94.2 H, VBG Base Excess 1.5, VBG Potassium 3.7, Sodium 136.0, Chloride 103.0, Glucose 119 H, Lactate 1.0, FiO2 21.0, Venous Blood Potassium 3.7 I have reviewed the lab results: Yes - RAD Interpretation Radiology Orders: 07/22/17 21:19 CHEST PORTABLE [RAD] Stat FOOT LEFT 3 VIEWS ROUTINE [RAD] Stat - EKG Interpretation Interpreted by ED Physician: Yes Type: 12 lead EKG - Medication Orders Current Medication Orders: Acetaminophen (Tylenol 325mg Tab) 650 mg PO Q6H PRN PRN Reason: Fever >100.4 F Amitriptyline HCl (Elavil) 10 mg PO HS SANTINO Apixaban (Eliquis) 2.5 mg PO BID SANTINO PRN Reason: Protocol Last Admin: 07/23/17 01:05 Dose: Not Given Non-Admin Reason: Patient Refused Bupropion HCl (Wellbutrin Xl) 150 mg PO DAILY SANTINO Famotidine (Pepcid) 20 mg PO DAILY SANTINO Magnesium 2 gm/50 ml NS (Magnesium Sulfate 2 Gm/50 Ml Ns) 2 gm in 50 mls @ 50 mls/hr IVPB Q2H SANTINO Stop: 07/23/17 03:29 Last Admin: 07/23/17 01:08 Dose: 50 mls/hr eMAR Start Stop Document 07/23/17 01:08 RS (Rec: 07/23/17 01:08 RS [id number]) Intravenous Solution Start Date 07/23/17 Start Time 01:08 End Date 07/23/17 End time 02:08 Total Infusion Time 60 Sodium Chloride (Sodium Chloride 0.9%) 1,000 mls @ 100 mls/hr IV .Q10H SANTINO Last Admin: 07/23/17 01:06 Dose: 100 mls/hr eMAR Start Stop Document 07/23/17 01:06 RS (Rec: 07/23/17 01:06 RS [id number]) Intravenous Solution Start Date 07/23/17 Start Time 01:06 Vancomycin HCl (Vancomycin 1gm) 1 gm in 250 mls @ 167 mls/hr IVPB Q12H SANTINO PRN Reason: Protocol Piperacillin Sod/Tazobactam Sod (Zosyn 3.375 In Ns 100ml) 100 mls @ 200 mls/hr IVPB Q8 SANTINO PRN Reason: Protocol Stop: 07/23/17 14:29 Mesalamine (Pentasa) 1,000 mg PO QID SANTINO Ondansetron HCl (Zofran Inj) 4 mg IVP Q4H PRN PRN Reason: Nausea/Vomiting Paroxetine HCl (Paxil) 10 mg PO DAILY SANTINO Pregabalin (Lyrica) 50 mg PO BID SANTINO Quetiapine Fumarate (Seroquel Xr) 200 mg PO HS SANTINO PRN Reason: Protocol Tamsulosin HCl (Flomax) 0.4 mg PO DAILY SANTINO Discontinued Medications Acetaminophen (Tylenol 325mg Tab) 975 mg PO STAT STA Stop: 07/22/17 21:21 Last Admin: 07/22/17 21:34 Dose: 975 mg MAR Pain/Vitals Document 07/22/17 21:34 RD (Rec: 07/22/17 21:34 RD [id number]) Pain Reassessment Is This A Pain ReAssessment? No Sleep Is patient sleeping during reassessment? No Presence of Pain Presence of Pain Yes Pain Scale Used Pain Scale Used Numeric Location Left, Right or Bilateral Left Pain Location Body Site 2nd Toe Description Throbbing Intensity 4 Scale Used Numeric Pain Behavior Irritability Vitals Temperature (97.6 F-99.6 F) 100.5 F Temperature Source Oral Vancomycin HCl (Vancomycin 1gm) 1 gm in 250 mls @ 167 mls/hr IVPB STAT STA PRN Reason: Protocol Stop: 07/22/17 22:48 Last Admin: 07/22/17 22:40 Dose: 167 mls/hr eMAR Start Stop Document 07/22/17 22:40 RD (Rec: 07/22/17 22:40 RD [id number]) Intravenous Solution Start Date 07/22/17 Start Time 22:40 End Date 07/23/17 End time 00:10 Total Infusion Time 90 Piperacillin Sod/Tazobactam Sod (Zosyn 3.375 In Ns 100ml) 100 mls @ 200 mls/hr IVPB STAT STA PRN Reason: Protocol Stop: 07/22/17 21:48 Last Admin: 07/22/17 21:35 Dose: 200 mls/hr eMAR Start Stop Document 07/22/17 21:35 RD (Rec: 07/22/17 21:35 RD [id number]) Intravenous Solution Start Date 07/22/17 Start Time 21:35 End Date 07/22/17 End time 22:05 Total Infusion Time 30 Sodium Chloride (Sodium Chloride 0.9%) 500 mls @ 999 mls/hr IV .Q31M STA Stop: 07/22/17 21:50 Last Admin: 07/22/17 21:35 Dose: 999 mls/hr eMAR Start Stop Document 07/22/17 21:35 RD (Rec: 07/22/17 21:35 RD [id number]) Intravenous Solution Start Date 07/22/17 Start Time 21:35 End Date 07/22/17 End time 22:05 Total Infusion Time 30 Ondansetron HCl (Zofran Inj) 4 mg IVP STAT STA Stop: 07/22/17 21:21 Last Admin: 07/22/17 21:34 Dose: 4 mg IVP Administration Document 07/22/17 21:34 RD (Rec: 07/22/17 21:34 RD [id number]) Charges for Administration # of IVP Administrations 1 - Scribe Statement The provider has reviewed the documentation as recorded by the Deborahibe Vika Aparicio Provider Scribe Attestation: All medical record entries made by the Scribe were at my direction and personally dictated by me. I have reviewed the chart and agree that the record accurately reflects my personal performance of the history, physical exam, medical decision making, and the department course for this patient. I have also personally directed, reviewed, and agree with the discharge instructions and disposition. Disposition/Present on Arrival - Present on Arrival Any Indicators Present on Arrival: No History of DVT/PE: No History of Uncontrolled Diabetes: No Urinary Catheter: No History of Decub. Ulcer: No History Surgical Site Infection Following: None - Disposition Have Diagnosis and Disposition been Completed?: Yes Diagnosis: Cellulitis Disposition: HOSPITALIZED Disposition Time: 23:00 Condition: STABLE
[2017-07-22 22:03] LABS: VENOUS BLOOD GAS BASE EXCESS 1.5 mmol/L (0.0-2.0); VENOUS BLOOD GAS PO2 55 mm/Hg (30-55); VENOUS BLOOD PH 7.43 (7.32-7.43)
[2017-07-22 22:04] LABS: BASO # 0.01 K/mm3 (0.0-2.0); BASO % 0.1 % (0.0-3.0); EOS % 0.1 % (1.5-5.0); GRAN # 5.78 (1.4-6.5); GRAN % 78.8 % (50.0-68.0); HEMOGLOBIN 12.7 g/dL (14.0-18.0); LYMPH # 0.7 (1.2-3.4); MEAN CELL VOLUME 89.4 fl (80.0-105.0); MEAN CORPUSCULAR HEMOGLOBIN 30.7 pg (25.0-35.0); MEAN CORPUSCULAR HGB CONC 34.3 g/dl (31.0-37.0); MONO # 0.9 (0.1-0.6); RBC 4.14 10^6/uL (3.5-6.1); RED CELL DISTRIBUTION WIDTH 14.2 % (11.5-14.5); WHITE BLOOD COUNT 7.3 10^3/ul (4.5-11.0)
[2017-07-22 22:16] LABS: INR 1.3 (0.93-1.08); PARTIAL THROMBOPLASTIN TIME 30.2 Seconds (25.1-36.5); PROTHROMBIN TIME 14.9 SECONDS (9.4-12.5)
[2017-07-22 22:20] LABS: TROPONIN I 0.01 ng/mL
[2017-07-22 22:24] LABS: ALB/GLOB RATIO 1.2 (1.1-1.8); ALBUMIN 4.4 g/dL (3.0-4.8); ALT/SGPT 26 U/L (7-56); AST/SGOT 32 U/L (17-59); BLOOD UREA NITROGEN 17 mg/dL (7-21); CALCIUM 9.3 mg/dL (8.4-10.5); GFR AFRICAN-AMERICAN > 60; GFR NON-AFRICAN AMERICAN > 60
--- NOTE | 2017-07-23 00:04 | CP.PCM.HP ---
Addendum entered and electronically signed by Liliya Rivera DO 07/23/17 02:09: Addendum: Patient is currently receiving treatment for DVT of RIJ, Eliquis 2.5mg PO BID; he is only requiring GI ppx at this time Original Note: <Liliya Rivera - Last Filed: 07/23/17 02:06> History of Present Illness - History of Present Illness History of Present Illness: History and Physical - Hospitalist Service HPI: Patient is a 51 year old male with past medical history of crohn's disease s/p colostomy, Susac syndrome, psoriasis, cerebral vasculitis with bilateral hearing loss, depression presents to the ED for 2nd left toe swelling that started 2 days ago. Patient denies any trauma, this has never happened to him before. Swelling is associated with intermittent throbbing pain. Rates the pain a 5/10 on pain scale. Also reports having non-bilious, non-bloody vomiting for past 2 days. States that he has not vomited since he has been in the ED. Patient denies fevers/chills, headaches, dizziness, cp, palpitations, sob, abdominal pain, urinary symptoms, numbness/tingling. Patient had fever of 100.5 on arrival to the ED. ED course: Vancomycin x 1 dose, Zosyn x 1 dose, Zofran 4mg, Tylenol 975mg, NS 500cc bolus PMD: Dr Aburto Allergies: Homeopathic substance (from [employer]), israeli spring soap -> allergic pneumonia Medications: Monthly IV gammaglobulin, Pentasa, Seroquel 200mg PO HS, Flomax 0.4mg PO daily, Kdur 20meq Qotherday, Lyrica 50mg PO BID, Pentasa 2 cap PO QID, Amitriptyline 10mg PO HS, Buproprion 150mg PO daily, Eliquis 2.5mg PO BID, Ergocalciferol 1 tab PO Q7D, Pepcid 20mg PO daily, Paxil 10mg PO daily Medical History: Crohn's disease, Susac syndrome, psoriasis, depression, cerebral angiitis, bilateral hearing loss, hypogammaglobulinemia Surgical History: Colostomy x 2, Port in left upper arm Social History: Former smoker, denies alcohol, tobacco use Family History: Mother - breast cancer; Father - aneurysm, DM, heart disease ( ) Past Hospitalizations: 02/2017 for gram positive bacteremia 2/2 infected port Present on Admission - Present on Admission Any Indicators Present on Admission: No 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) Other/Comment: slight speech impediment - RENAL Hx Chronic Kidney Disease: No - ENDOCRINE/METABOLIC Hx Endocrine Disorders: No - HEMATOLOGICAL/ONCOLOGICAL Hx Blood Transfusions: No Hx Blood Transfusion Reaction: No - INTEGUMENTARY Hx Dermatological Problems: Yes Hx Psoriasis: Yes - MUSCULOSKELETAL/RHEUMATOLOGICAL Hx Musculoskeletal Disorders: Yes - GASTROINTESTINAL Hx Gastrointestinal Disorders: Yes Hx Colostomy: Yes Hx Crohn's Disease: Yes (dx at 15 yrs old) - GENITOURINARY/GYNECOLOGICAL Hx Genitourinary Disorders: No - PSYCHIATRIC Hx Emotional Abuse: No Hx Physical Abuse: No Hx Substance Use: No - SURGICAL HISTORY Other/Comment: colostomy bag. abdominal sx - ANESTHESIA Hx Anesthesia Reactions: No Hx Malignant Hyperthermia: No Meds Allergies/Adverse Reactions: Allergies Allergy/AdvReac Type Severity Reaction Status Date / Time homeopathic substance (from Allergy Intermediate RASH Uncoded 11/17/16 15:26 Rosario) [facility] SOAP Allergy RASH Uncoded 11/17/16 15:26 Physical Exam - Constitutional Appears: Non-toxic, No Acute Distress, Chronically Ill - Head Exam Head Exam: ATRAUMATIC, NORMAL INSPECTION, NORMOCEPHALIC - Eye Exam Eye Exam: EOMI, Normal appearance, PERRL - ENT Exam ENT Exam: Mucous Membranes Moist Additional comments: Bilateral hearing aids (100% hearing loss in left ear, 80% hearing loss in right ear) - Neck Exam Neck exam: Positive for: Full Rom - Respiratory Exam Respiratory Exam: Clear to Auscultation Bilateral, NORMAL BREATHING PATTERN. absent: Rales, Rhonchi, Wheezes - Cardiovascular Exam Cardiovascular Exam: REGULAR RHYTHM, +S1, +S2. absent: Systolic Murmur - GI/Abdominal Exam GI & Abdominal Exam: Soft. absent: Firm, Tenderness Additional comments: +Colostomy in LLQ, Obese abdomen - Rectal Exam Rectal Exam: Deferred - Extremities Exam Extremities exam: Positive for: full ROM, tenderness, pedal pulses present Additional comments: Upper extremities Left upper arm port (non-tender, non-erythematous, non-infectious appearing) Lower extremities Dorsalis Pedis pulses intact bilaterally, +1 pitting edema bilaterally Left foot: 2nd toe soft tissue swelling, erythematous, small amount of serosanginous drainage from plantar aspect of 2nd toe, + tenderness Right foot: healing scab on 2nd toe Chronic venous stasis skin changes on bilateral lower extremities Negative Homans sign, no calf tenderness - Back Exam Back exam: NORMAL INSPECTION - Neurological Exam Neurological exam: Alert, CN II-XII Intact, Oriented x3 - Psychiatric Exam Psychiatric exam: Normal Affect, Normal Mood - Skin Skin Exam: Dry, Warm Additional comments: Psoriatic skin changes on the face, flexor surface of bilateral upper extremities Lower extremity skin changes as noted above Results - Vital Signs Recent Vital Signs: Last Vital Signs Temp 98.9 F 07/22/17 23:59 Pulse 104 H 07/22/17 23:59 Resp 18 07/22/17 23:59 BP 127/75 07/22/17 23:59 Pulse Ox 99 07/22/17 23:59 - Labs Result Diagrams: 07/22/17 21:53 07/22/17 21:53 Assessment & Plan - Assessment and Plan (Free Text) Assessment: Assessment/Plan: Patient is a 51 year old male with past medical history of Crohn's disease, colostomy, Susac Syndrom, bilateral hearing loss who presented to the ED with 2 day history of left 2nd toe swelling and pain. Sepsis likely 2/2 Left 2nd Toe soft tissue swelling/cellulitis, r/o Osteomyeolitis -Stable, Tmax 100.5, tachycardic -No leukocytosis -Received Vancomycin 1gm and Zosyn 3.375mg in the ED -Antibiotics: Vancomycin 1 gm Q12H, Zosyn 3.375 Q8H -CXR completed, official report pending -Foot X ray completed: official read is pending -Lower extremity arterial duplex ordered to evaluate for possible peripheral vascular disease -Tylenol 650mg Q6H prn fever, Zofran 4mg Q4H prn nausea -IV fluids: NS @ 100cc/hr -Wound cultures pending -Blood cultures, urine cultures, UA, procal, Hga1c, ESR pending -ID on consult, help appreciated -Podiatry on consult, help appreciated Lower Extremity Edema -Last Echo 02/2017 showed EF 55-60%, trace Tricuspid regurg, aortic regurg -Bilateral venous dopplers ordered Susac syndrome -Patient follows with Dr López for IVIG treatment History of Depression -Continue Seroquel 200mg PO HS -Paxil 10mg PO daily -Buproprion 150mg PO daily -Amitriptyline 10mg PO HS History of Crohn's Disease -Continue Pentasa 2 caps PO QID History of Acute occlusive thrombus -Upper extremity US from 02/2017 showed acute occlusive thrombus in R internal jugular vein that was related to port placement -Port was subsequently removed -Patient is on Eliquis 2.5mg PO BID (patient not sure why he is taking this medication) -Will confirm with PMD Hypomagnesemia -Magnesium 1.3 on admission -Repleted -F/U am labs History of Vitamin D Deficiency -Home med: Ergocalciferol 50,000 units PO Q7D (Wednesdays) -Follow up Vitamin D level BPH -Continue Flomax 0.4mg PO daily GI/DVT ppx: -Pepcid 20mg PO daily -Eliquis 2.5mg PO BID Plan discussed with Dr Joe Rivera DO PGY-1 <Vi Diaz - Last Filed: 07/23/17 07:04> Results - Vital Signs Recent Vital Signs: Last Vital Signs Temp 98.8 F 07/23/17 01:22 Pulse 94 H 07/23/17 05:25 Resp 18 07/23/17 01:22 BP 121/73 07/23/17 01:22 Pulse Ox 99 07/22/17 23:59 - Labs Result Diagrams: 07/22/17 21:53 07/22/17 21:53 Attending/Attestation - Attestation I have personally seen and examined this patient.: Yes I have fully participated in the care of the patient.: Yes I have reviewed all pertinent clinical information: Yes Notes (Text): 07/23/17 07:03 Agree with documentation and plan.
[2017-07-23] MEDS: Sodium Chloride 0.9% 1,000 ML IV SCH ×2 (01:06→10:35)
[2017-07-23] MEDS: Magnesium 2 gm/50 ml NS 2 GM/50 ML BAG IVPB SCH ×2 (01:08→03:26)
[2017-07-23] MEDS: Piperacillin/Tazobact 3.375 gm 100 ML IVPB SCH ×3 (05:31→21:37)
[2017-07-23 07:12] LABS: BASO # 0.01 K/mm3 (0.0-2.0); BASO % 0.2 % (0.0-3.0); EOS % 0.3 % (1.5-5.0); GRAN # 4.85 (1.4-6.5); GRAN % 75.6 % (50.0-68.0); HEMOGLOBIN 12.1 g/dL (14.0-18.0); LYMPH # 0.7 (1.2-3.4); LYMPH % 10.5 % (22.0-35.0); MEAN CELL VOLUME 89.6 fl (80.0-105.0); MEAN CORPUSCULAR HEMOGLOBIN 30.1 pg (25.0-35.0); MEAN CORPUSCULAR HGB CONC 33.6 g/dl (31.0-37.0); MEAN PLATELET VOLUME 10.1 fl (7.0-11.0); MONO # 0.9 (0.1-0.6); MONO % 13.4 % (1.0-6.0); RBC 4.02 10^6/uL (3.5-6.1); RED CELL DISTRIBUTION WIDTH 14.2 % (11.5-14.5); WHITE BLOOD COUNT 6.4 10^3/ul (4.5-11.0)
[2017-07-23 07:39] LABS: ALB/GLOB RATIO 1.2 (1.1-1.8); ALBUMIN 3.9 g/dL (3.0-4.8); ALT/SGPT 25 U/L (7-56); AST/SGOT 27 U/L (17-59); BLOOD UREA NITROGEN 14 mg/dL (7-21); CALCIUM 8.3 mg/dL (8.4-10.5); GFR AFRICAN-AMERICAN > 60; GFR NON-AFRICAN AMERICAN > 60
--- NOTE | 2017-07-23 09:01 | RAD ---
HISTORY: fever COMPARISON: 02/12/2017 FINDINGS: LUNGS: No active pulmonary disease. PLEURA: No significant pleural effusion identified, no pneumothorax apparent. CARDIOVASCULAR: Normal. OSSEOUS STRUCTURES: No significant abnormalities. VISUALIZED UPPER ABDOMEN: Normal. OTHER FINDINGS: Left-sided PICC line in satisfactory position IMPRESSION: No active disease.
[2017-07-23] MEDS: Mesalamine ER Cap 500 MG PO SCH ×4 (09:16→21:35)
[2017-07-23] MEDS: buPROPion 150 mg/24 Hours XL Tab PO SCH (09:16)
[2017-07-23] MEDS: CADEXOMER IODINE 0.9% GEL 10G TOP SCH (09:17)
--- NOTE | 2017-07-23 10:00 | CARD ---
APPROVED REPORT EKG Measurement Heart [id number] <Conclusion> Sinus tachycardia No change
[2017-07-23] MEDS: Vancomycin 1gm in NS 250ml 1 GM/250 ML BAG IVPB SCH ×2 (10:13→22:47)
--- NOTE | 2017-07-23 10:27 | RAD ---
PROCEDURE: Left Foot Radiographs. HISTORY: swelling COMPARISON: None. FINDINGS: BONES: Normal. No fracture. JOINTS: Normal. SOFT TISSUES: Normal. OTHER FINDINGS: None. IMPRESSION: Normal left foot radiographs.
--- NOTE | 2017-07-23 12:56 | MRI ---
PROCEDURE: MRI of the left foot without contrast HISTORY: Distal left 2nd toe ulceration w/cellulitis COMPARISON: TECHNIQUE: MRI of the left foot was performed in multiple planes using multiple pulse sequences FINDINGS: There is some soft tissue edema and swelling of the 2nd toe. There is a small amount of marrow edema in the 2nd distal phalanx as well as loss of the normal cortical contour along the inferior surface. These findings are seen on image 18 series 5. The findings are suspicious for osteomyelitis. The metatarsals have a normal marrow signal intensity. IMPRESSION: Minimal marrow edema in the 2nd distal phalanx suspicious for osteomyelitis.
--- NOTE | 2017-07-23 15:01 | CP.PCM.CON ---
History of Present Illness - History of Present Illness History of Present Illness: 51 year old male with PMH of Crohn's disease, depression, Susac syndrome ( autoimmune disorder), psoriasis, S/P right chest wall port-a-cath placement, history of sepsis due to MSSA bacteremia, consider port infection with associated infected right IJ thrombophlebitis S/P port removal came in to [facility] [place] because of 2nd left toe swelling and pain for the past 2-3 days. He does not remember having trauma to the foot, denies walking barefoot on soil, no animal contacts, no soaking of feet in water. He denies fever or chills, no nausea or vomiting, no chest pain, no SOB, no headache or dizziness, no chest pain, no sore throat, no abdominal pain, no diarrhea, no dysuria. Infectious diseases consult is requested to further evaluate and manage. 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) Other/Comment: slight speech impediment - RENAL Hx Chronic Kidney Disease: No - ENDOCRINE/METABOLIC Hx Endocrine Disorders: No - HEMATOLOGICAL/ONCOLOGICAL Hx Blood Transfusions: No Hx Blood Transfusion Reaction: No - INTEGUMENTARY Hx Dermatological Problems: Yes Hx Psoriasis: Yes - MUSCULOSKELETAL/RHEUMATOLOGICAL Hx Musculoskeletal Disorders: Yes - GASTROINTESTINAL Hx Gastrointestinal Disorders: Yes Hx Colostomy: Yes Hx Crohn's Disease: Yes (dx at 15 yrs old) - GENITOURINARY/GYNECOLOGICAL Hx Genitourinary Disorders: No - PSYCHIATRIC Hx Emotional Abuse: No Hx Physical Abuse: No Hx Substance Use: No - SURGICAL HISTORY Other/Comment: colostomy bag. abdominal sx - ANESTHESIA Hx Anesthesia Reactions: No Hx Malignant Hyperthermia: No Meds Allergies/Adverse Reactions: Allergies Allergy/AdvReac Type Severity Reaction Status Date / Time homeopathic substance (from Allergy Intermediate RASH Uncoded 11/17/16 15:26 Rosario) [facility] Allergy RASH Uncoded 11/17/16 15:26 - Medications Medications: Current Medications Acetaminophen (Tylenol 325mg Tab) 650 mg PO Q6H PRN PRN Reason: Fever >100.4 F Amitriptyline HCl (Elavil) 10 mg PO HS [facility] Apixaban (Eliquis) 2.5 mg PO BID [facility] PRN Reason: Protocol Last Admin: 07/23/17 09:16 Dose: 2.5 mg Bupropion HCl (Wellbutrin Xl) 150 mg PO DAILY [facility] Last Admin: 07/23/17 09:16 Dose: 150 mg Cadexomer Iodine (Iodosorb) 0 gm TOP DAILY [facility] Last Admin: 07/23/17 09:17 Dose: Not Given Famotidine (Pepcid) 20 mg PO DAILY [facility] Last Admin: 07/23/17 09:16 Dose: 20 mg Sodium Chloride (Sodium Chloride 0.9%) 1,000 mls @ 100 mls/hr IV .Q10H [facility] Last Admin: 07/23/17 01:06 Dose: 100 mls/hr Vancomycin HCl (Vancomycin 1gm) 1 gm in 250 mls @ 167 mls/hr IVPB Q12H [facility] PRN Reason: Protocol Last Admin: 07/23/17 10:13 Dose: 167 mls/hr Piperacillin Sod/Tazobactam Sod (Zosyn 3.375 In Ns 100ml) 100 mls @ 200 mls/hr IVPB Q8 [facility] PRN Reason: Protocol Stop: 07/23/17 14:29 Last Admin: 07/23/17 05:31 Dose: 200 mls/hr Mesalamine (Pentasa) 1,000 mg PO QID [facility] Last Admin: 07/23/17 09:16 Dose: 1,000 mg Ondansetron HCl (Zofran Inj) 4 mg IVP Q4H PRN PRN Reason: Nausea/Vomiting Paroxetine HCl (Paxil) 10 mg PO DAILY [facility] Last Admin: 07/23/17 09:16 Dose: 10 mg Pregabalin (Lyrica) 50 mg PO BID [facility] Last Admin: 07/23/17 09:16 Dose: 50 mg Quetiapine Fumarate (Seroquel Xr) 200 mg PO HS [facility] PRN Reason: Protocol Tamsulosin HCl (Flomax) 0.4 mg PO DAILY [facility] Last Admin: 07/23/17 09:16 Dose: 0.4 mg Physical Exam - Constitutional Appears: Non-toxic, Chronically Ill - Head Exam Head Exam: NORMAL INSPECTION - ENT Exam ENT Exam: Mucous Membranes Moist - Neck Exam Neck exam: Negative for: Lymphadenopathy, Meningismus - Respiratory Exam Respiratory Exam: Decreased Breath Sounds - Cardiovascular Exam Cardiovascular Exam: +S1, +S2 - GI/Abdominal Exam GI & Abdominal Exam: Soft. absent: Tenderness - Extremities Exam Additional comments: Assessment left foot 2nd toe skin and skin structure infection R/O osteomyelitis history of sepsis due to MSSA bacteremia, consider port infection with associated infected right IJ thrombophlebitis S/P port removal new onset fever, R/O Influenza history of severe sepsis due to methicillin-resistant coagulase negative staph bacteremia and right ankle cellulitis with MSSA Crohn's disease depression Susac syndrome (autoimmune disorder) psoriasis S/P right chest wall port-a-cath placement Plan started Vancomycin and Zosyn pending blood and wound cx; will also follow up MRI of the foot follow up Podiatry evaluation and recommendations will monitor clinically Results - Vital Signs Recent Vital Signs: Last Vital Signs Temp 98.0 F 07/23/17 06:00 Pulse 94 H 07/23/17 06:00 Resp 20 07/23/17 06:00 BP 160/94 H 07/23/17 06:00 Pulse Ox 97 07/23/17 06:00 - Labs Result Diagrams: 07/23/17 06:30 07/23/17 06:30 Labs: Laboratory Results - last 24 hr 07/23/17 07/23/17 07/23/17 06:30 06:30 06:30 WBC 6.4 RBC 4.02 Hgb 12.1 L Hct 36.0 L MCV 89.6 MCH 30.1 MCHC 33.6 RDW 14.2 Plt Count 120 MPV 10.1 Gran % 75.6 H Lymph % (Auto) 10.5 L [place] % (Auto) 13.4 H Eos % (Auto) 0.3 L Baso % (Auto) 0.2 Gran # 4.85 Lymph # (Auto) 0.7 L [place] # (Auto) 0.9 H Eos # (Auto) 0.0 Baso # (Auto) 0.01 ESR 55 H Sodium 140 Potassium 3.8 Chloride 104 Carbon Dioxide 22 Anion Gap 18 BUN 14 Creatinine 0.9 Est GFR ( Amer) > 60 Est GFR (Non-Af Amer) > 60 Random Glucose 118 H Calcium 8.3 L Phosphorus 2.2 L Magnesium 2.5 H Total Bilirubin 1.4 H AST 27 ALT 25 Alkaline Phosphatase 66 Total Protein 7.3 Albumin 3.9 Globulin 3.4 Albumin/Globulin Ratio 1.2 25-OH Vitamin D Total 50.6 Assessment & Plan - Assessment and Plan (Free Text) Plan: Assessment Sepsis due to MSSA bacteremia, consider port infection with associated infected right IJ thrombophlebitis S/P port removal; EDENILSON does not show vegetations new onset fever, R/O Influenza history of severe sepsis due to methicillin-resistant coagulase negative staph bacteremia and right ankle cellulitis with MSSA Crohn's disease depression Susac syndrome (autoimmune disorder) psoriasis S/P right chest wall port-a-cath placement Plan Continue Cefazolin and should repeat blood cx since port has been removed - after port removal, patient will need 4-6 weeks of antibiotics with weekly ESR, CRP, CBC, CMP 2D echo is negative for vegetations as well as EDENILSON done today - discussed with Dr. Herndon will continue to monitor clinically rapid Influenza test is negative
--- NOTE | 2017-07-23 20:05 | CON ---
HISTORY OF PRESENT ILLNESS: A 51-year-old male seen at bedside for consultation, evaluation, and management of a recent left second digit pain and swelling. The patient states he does not know how long the toe has been swollen; however, approximately 2 days ago, he started having pain in his toe and noticed that it was becoming red, hot, and swollen, so he went to the emergency room. He also states that he was vomiting for the past 2 days, which also prompted him for seeking medical help in the emergency room. The patient's medical history is significant for psoriasis, psoriatic arthritis, Crohn disease, status post colostomy, Susac syndrome, cerebral vasculitis, hearing deficit bilaterally, and . ALLERGIES: THE PATIENT HAS NO DRUG ALLERGIES, BUT IS ALLERGIC TO CHERRIES AND DIVEHI SPRING SOAP? PAST SURGICAL HISTORY: Includes colostomy and abdominal surgery. SOCIAL HISTORY: The patient is a former smoker, no longer is actively smoking. Denies illicit drug use. Denies alcohol abuse. FAMILY HISTORY: Significant for heart disease and diabetes. HOME MEDICATIONS: Include Seroquel, Flomax, Lyrica, Pentasa, amitriptyline, bupropion, Eliquis, Paxil, and monthly IV gamma-globulin. PHYSICAL EXAMINATION: VITAL SIGNS: Reveal temperature of 98.8, pulse rate of 95, blood pressure of 121/73, respiratory rate 18. EXTREMITIES: Nonpalpable posterior tibial pulse and weakly palpable dorsalis pedis pulse noted bilaterally. The patient unable to detect 5.07 g monofilament wire testing bilaterally. Capillary filling time is slightly delayed x10. Both lower extremities present with +1 nonpitting edema. Left second digit presents with edema and erythema with drainage at the distal tip of the digit. On further inspection, it was noted that there was purulence emanating from the distal tip of the toe. There is localized cellulitis of the second digit. However, no signs of ascending cellulitis at this time. LABORATORY FINDINGS: Reveal a white count of 6.4, hemoglobin of 12.1, hematocrit of 36, and platelet count of 120. His ESR is pending. There is no microbiology report noted. x-rays taken yesterday upon admission reveals no radiographic evidence to suggest osteomyelitis at the underlying distal left second digit. However, osteomyelitis cannot be ruled out and an MRI will be needed. ASSESSMENT Abscess formation on the left second digit with accompanying cellulitis, osteomyelitis must be ruled out. PLAN: The patient was examined. Toe was cleansed with saline. A simple incision and drainage of the abscess was performed. There was noted to be purulent drainage emanating from the distal tip of the toe with a granular underlying tissue base. The wound does not probe to tendon or bone. However, we will order an MRI to rule out osteomyelitis. Culture was taken and submitted for sensitivities. Recommend Infectious Disease consult with Dr. Clay to evaluate culture and sensitivity results taken today. MRI will be ordered to rule out osteomyelitis. We will cleanse the wound daily, apply Iodosorb cream, and dry sterile dressing daily. The patient is currently being treated empirically with vancomycin and Zosyn, would continue until culture and sensitivity results are in. We will order arterial Dopplers to ascertain lower extremity perfusion. The patient will be seen and followed daily. Robin Garsia DPM
[2017-07-23] MEDS: QUEtiapine 200 mg XR Tab PO SCH (21:36)
[2017-07-24] MEDS: Piperacillin/Tazobact 3.375 gm 100 ML IVPB SCH ×3 (06:30→21:50)
[2017-07-24] MEDS: Sodium Chloride 0.9% 1,000 ML IV SCH ×2 (06:32→17:23)
[2017-07-24 08:41] LABS: BASO # 0.01 K/mm3 (0.0-2.0); BASO % 0.2 % (0.0-3.0); EOS # 0.1 (0.0-0.7); EOS % 2.1 % (1.5-5.0); GRAN # 2.97 (1.4-6.5); GRAN % 68.6 % (50.0-68.0); HEMOGLOBIN 10.8 g/dL (14.0-18.0); LYMPH # 0.7 (1.2-3.4); LYMPH % 15.9 % (22.0-35.0); MEAN CELL VOLUME 89.3 fl (80.0-105.0); MEAN CORPUSCULAR HEMOGLOBIN 29.8 pg (25.0-35.0); MEAN CORPUSCULAR HGB CONC 33.3 g/dl (31.0-37.0); MEAN PLATELET VOLUME 9.7 fl (7.0-11.0); MONO # 0.6 (0.1-0.6); MONO % 13.2 % (1.0-6.0); RBC 3.63 10^6/uL (3.5-6.1); RED CELL DISTRIBUTION WIDTH 14.1 % (11.5-14.5); WHITE BLOOD COUNT 4.3 10^3/ul (4.5-11.0)
[2017-07-24 08:56] LABS: ALB/GLOB RATIO 1.1 (1.1-1.8); ALBUMIN 3.4 g/dL (3.0-4.8); ALT/SGPT 10 U/L (7-56); AST/SGOT 20 U/L (17-59); BLOOD UREA NITROGEN 9 mg/dL (7-21); CALCIUM 8.2 mg/dL (8.4-10.5); GFR AFRICAN-AMERICAN > 60; GFR NON-AFRICAN AMERICAN > 60
[2017-07-24] MEDS ORDERED: Potassium Chloride 20 mEq ER Tab PO ONE (09:15)
[2017-07-24] MEDS: buPROPion 150 mg/24 Hours XL Tab PO SCH (09:53)
[2017-07-24] MEDS: Mesalamine ER Cap 500 MG PO SCH ×4 (09:53→21:49)
[2017-07-24] MEDS: Vancomycin 1gm in NS 250ml 1 GM/250 ML BAG IVPB SCH (10:09)
[2017-07-24] MEDS: Vancomycin 1.5 GM in Sodium Chloride 0.9% 500 ML IVPB SCH ×2 (10:51→21:50)
--- NOTE | 2017-07-24 12:11 | CP.PCM.PN ---
<Denys Saeed - Last Filed: 07/24/17 15:35> Subjective - Date & Time of Evaluation Date of Evaluation: 07/24/17 Time of Evaluation: 12:05 - Subjective Subjective: Patient seen and examined at bedside. Per nursing no acute events occurred overnight. Patient is upset with his current health status. He reports his pain level is controlled and is tolerating diet without any complaints. He denies any chest pain, shortness of breath, fevers, chills, nausea, vomiting, or any other complaints. Objective - Vital Signs/Intake and Output Vital Signs (last 24 hours): Temp Pulse Resp BP Pulse Ox 98.4 F 82 18 122/66 95 07/24/17 06:00 07/24/17 10:00 07/24/17 06:00 07/24/17 06:00 07/24/17 06:00 Intake and Output: 07/24/17 07/24/17 06:59 18:59 Intake Total 1815 Balance 1815 - Medications Medications: Current Medications Acetaminophen (Tylenol 325mg Tab) 650 mg PO Q6H PRN PRN Reason: Fever >100.4 F Amitriptyline HCl (Elavil) 10 mg PO HS [facility] Last Admin: 07/23/17 21:34 Dose: 10 mg Apixaban (Eliquis) 2.5 mg PO BID [facility] PRN Reason: Protocol Last Admin: 07/24/17 09:54 Dose: 2.5 mg Bupropion HCl (Wellbutrin Xl) 150 mg PO DAILY [facility] Last Admin: 07/24/17 09:53 Dose: 150 mg Cadexomer Iodine (Iodosorb) 0 gm TOP DAILY [facility] Last Admin: 07/23/17 09:17 Dose: Not Given Famotidine (Pepcid) 20 mg PO DAILY [facility] Last Admin: 07/24/17 09:54 Dose: 20 mg Sodium Chloride (Sodium Chloride 0.9%) 1,000 mls @ 100 mls/hr IV .Q10H [facility] Last Admin: 07/24/17 06:32 Dose: 100 mls/hr Piperacillin Sod/Tazobactam Sod (Zosyn 3.375 In Ns 100ml) 100 mls @ 200 mls/hr IVPB Q8 [facility] PRN Reason: Protocol Stop: 07/30/17 06:01 Last Admin: 07/24/17 06:30 Dose: 200 mls/hr Vancomycin HCl 1.5 gm/ Sodium (Chloride) 500 mls @ 167 mls/hr IVPB Q12H [facility] PRN Reason: Protocol Last Admin: 07/24/17 10:51 Dose: 167 mls/hr Mesalamine (Pentasa) 1,000 mg PO QID [facility] Last Admin: 07/24/17 09:53 Dose: 1,000 mg Ondansetron HCl (Zofran Inj) 4 mg IVP Q4H [facility] PRN Reason: Nausea/Vomiting Last Admin: 07/23/17 20:43 Dose: 4 mg Paroxetine HCl (Paxil) 10 mg PO DAILY [facility] Last Admin: 07/24/17 09:54 Dose: 10 mg Pregabalin (Lyrica) 50 mg PO BID [facility] Last Admin: 07/24/17 09:53 Dose: 50 mg Quetiapine Fumarate (Seroquel Xr) 200 mg PO HS [facility] PRN Reason: Protocol Last Admin: 07/23/17 21:36 Dose: 200 mg Tamsulosin HCl (Flomax) 0.4 mg PO DAILY [facility] Last Admin: 07/24/17 09:54 Dose: 0.4 mg - Labs Labs: 07/24/17 08:33 07/24/17 08:33 PT 14.9 SECONDS (9.4-12.5) H 07/22/17 21:53 INR 1.30 (0.93-1.08) H 07/22/17 21:53 APTT 30.2 Seconds (25.1-36.5) 07/22/17 21:53 - Head Exam Head Exam: ATRAUMATIC, NORMAL INSPECTION, NORMOCEPHALIC - Eye Exam Eye Exam: Normal appearance, PERRL Pupil Exam: NORMAL ACCOMODATION - ENT Exam ENT Exam: Mucous Membranes Moist Additional comments: Hearing aids in bilaterally - Neck Exam Neck Exam: Normal Inspection - Respiratory Exam Respiratory Exam: Clear to Ausculation Bilateral, NORMAL BREATHING PATTERN - Cardiovascular Exam Cardiovascular Exam: REGULAR RHYTHM, +S1, +S2 - GI/Abdominal Exam GI & Abdominal Exam: Soft, Normal Bowel Sounds - Extremities Exam Extremities Exam: Full ROM. absent: Joint Swelling, Pedal Edema, Tenderness Additional comments: Left foot in walking boot and wrapped. Chronic venous changes bilaterally. - Neurological Exam Neurological Exam: Alert, Awake, CN II-XII Intact, Oriented x3 - Psychiatric Exam Psychiatric exam: Normal Affect, Normal Mood - Skin Skin Exam: Dry, Intact Assessment and Plan - Assessment and Plan (Free Text) Assessment: Assessment/Plan: Patient is a 51 year old male with past medical history of Crohn's disease, colostomy, Susac Syndrom, bilateral hearing loss who presented to the ED with 2 day history of left 2nd toe swelling and pain. Plan: Sepsis likely 2/2 Left 2nd Toe Osteomyeolitis -Stable, Tmax 100.5, Afebrile with No leukocytosis -Received Vancomycin 1gm and Zosyn 3.375mg in the ED -Antibiotics: Vancomycin 1 gm Q12H, Zosyn 3.375 Q8H -Vancomycin trough 10.1. Will continue to monitor. -CXR negative -Foot X ray completed: negative -Lower extremity MRI showed minimal marrow edema in 2nd distal phlanx suspicious for osteomyelitis. Treating as Osteomyelitis. -Tylenol 650mg Q6H prn fever, Zofran 4mg Q4H prn nausea -Wound cultures: Pending -ESR: 55 -Urine culture:Pending -Blood cultures:Negative -ID. help appreciated. -Podiatry. help appreciated Lower Extremity Edema -Last Echo 02/2017 showed EF 55-60%, trace Tricuspid regurg, aortic regurg -Bilateral venous dopplers Final read pending. Susac syndrome -Stable. -Patient follows with Dr López for IVIG treatment History of Depression -Continue Seroquel 200mg PO HS -Paxil 10mg PO daily -Buproprion 150mg PO daily -Amitriptyline 10mg PO HS History of Crohn's Disease -Continue Pentasa 2 caps PO QID History of Acute occlusive thrombus -Upper extremity US from 02/2017 showed acute occlusive thrombus in R internal jugular vein that was related to port placement -Port was subsequently removed -Patient is on Eliquis 2.5mg PO BID Hypomagnesemia -Magnesium 1.3 on admission -Repleted and Resolved. History of Vitamin D Deficiency -Home med: Ergocalciferol 50,000 units PO Q7D (Wednesdays) - Vitamin D level 50.6 BPH -Continue Flomax 0.4mg PO daily GI/DVT ppx: -Pepcid 20mg PO daily -Eliquis 2.5mg PO BID Plan discussed with Dr. Herbert Saeed DO PGY-1 <Freddie Godinez - Last Filed: 07/24/17 21:55> Objective - Vital Signs/Intake and Output Vital Signs (last 24 hours): Temp Pulse Resp BP Pulse Ox 97.2 F L 76 20 123/69 100 07/24/17 17:44 07/24/17 18:00 07/24/17 17:44 07/24/17 17:44 07/24/17 17:44 Intake and Output: 07/24/17 07/25/17 18:59 06:59 Intake Total 780 480 Balance 780 480 - Medications Medications: Current Medications Acetaminophen (Tylenol 325mg Tab) 650 mg PO Q6H PRN PRN Reason: Fever >100.4 F Amitriptyline HCl (Elavil) 10 mg PO HS [facility] Last Admin: 07/23/17 21:34 Dose: 10 mg Apixaban (Eliquis) 2.5 mg PO BID [facility] PRN Reason: Protocol Last Admin: 07/24/17 17:22 Dose: 2.5 mg Bupropion HCl (Wellbutrin Xl) 150 mg PO DAILY [facility] Last Admin: 07/24/17 09:53 Dose: 150 mg Cadexomer Iodine (Iodosorb) 0 gm TOP DAILY [facility] Last Admin: 07/24/17 12:51 Dose: Not Given Famotidine (Pepcid) 20 mg PO DAILY [facility] Last Admin: 07/24/17 09:54 Dose: 20 mg Sodium Chloride (Sodium Chloride 0.9%) 1,000 mls @ 100 mls/hr IV .Q10H [facility] Last Admin: 07/24/17 17:23 Dose: 100 mls/hr Piperacillin Sod/Tazobactam Sod (Zosyn 3.375 In Ns 100ml) 100 mls @ 200 mls/hr IVPB Q8 [facility] PRN Reason: Protocol Stop: 07/30/17 06:01 Last Admin: 07/24/17 13:40 Dose: 200 mls/hr Vancomycin HCl 1.5 gm/ Sodium (Chloride) 500 mls @ 167 mls/hr IVPB Q12H [facility] PRN Reason: Protocol Last Admin: 07/24/17 10:51 Dose: 167 mls/hr Mesalamine (Pentasa) 1,000 mg PO QID [facility] Last Admin: 07/24/17 17:22 Dose: 1,000 mg Ondansetron HCl (Zofran Inj) 4 mg IVP Q4H PRN PRN Reason: Nausea/Vomiting Last Admin: 07/23/17 20:43 Dose: 4 mg Paroxetine HCl (Paxil) 10 mg PO DAILY [facility] Last Admin: 07/24/17 09:54 Dose: 10 mg Pregabalin (Lyrica) 50 mg PO BID [facility] Last Admin: 07/24/17 17:22 Dose: 50 mg Quetiapine Fumarate (Seroquel Xr) 200 mg PO HS [facility] PRN Reason: Protocol Last Admin: 07/23/17 21:36 Dose: 200 mg Tamsulosin HCl (Flomax) 0.4 mg PO DAILY [facility] Last Admin: 07/24/17 09:54 Dose: 0.4 mg - Labs Labs: 07/24/17 08:33 07/24/17 08:33 PT 14.9 SECONDS (9.4-12.5) H 07/22/17 21:53 INR 1.30 (0.93-1.08) H 07/22/17 21:53 APTT 30.2 Seconds (25.1-36.5) 07/22/17 21:53 Attending/Attestation - Attestation I have personally seen and examined this patient.: Yes I have fully participated in the care of the patient.: Yes I have reviewed all pertinent clinical information, including history, physical exam and plan: Yes Notes (Text): 07/24/17 21:54 Patient seen and examined at bedside. MRI reviewed , vitals andlabs noted. Notes reviewed. Continue antibiotics per ID> Podiatry and Hematology follow up ongoing. Agree with the plan as outlined by the resident.
--- NOTE | 2017-07-24 12:23 | CP.PCM.PN ---
<Elly Aguilar - Last Filed: 07/24/17 12:23> Subjective - Date & Time of Evaluation Date of Evaluation: 07/24/17 Time of Evaluation: 12:21 - Subjective Subjective: Podiatry Progress note for Dr. Quijano 51 year old male was seen at bedside regarding left 2nd digit ulcer. He denies any acute event overnight. He is seen wearing his surgical shoe. He currently denies any n/v/f/c/sob/cp. Objective - Vital Signs/Intake and Output Vital Signs (last 24 hours): Temp Pulse Resp BP Pulse Ox 98.4 F 82 18 122/66 95 07/24/17 06:00 07/24/17 10:00 07/24/17 06:00 07/24/17 06:00 07/24/17 06:00 Intake and Output: 07/24/17 07/24/17 06:59 18:59 Intake Total 1815 Balance 1815 - Medications Medications: Current Medications Acetaminophen (Tylenol 325mg Tab) 650 mg PO Q6H PRN PRN Reason: Fever >100.4 F Amitriptyline HCl (Elavil) 10 mg PO HS [facility] Last Admin: 07/23/17 21:34 Dose: 10 mg Apixaban (Eliquis) 2.5 mg PO BID [facility] PRN Reason: Protocol Last Admin: 07/24/17 09:54 Dose: 2.5 mg Bupropion HCl (Wellbutrin Xl) 150 mg PO DAILY [facility] Last Admin: 07/24/17 09:53 Dose: 150 mg Cadexomer Iodine (Iodosorb) 0 gm TOP DAILY [facility] Last Admin: 07/23/17 09:17 Dose: Not Given Famotidine (Pepcid) 20 mg PO DAILY [facility] Last Admin: 07/24/17 09:54 Dose: 20 mg Sodium Chloride (Sodium Chloride 0.9%) 1,000 mls @ 100 mls/hr IV .Q10H [facility] Last Admin: 07/24/17 06:32 Dose: 100 mls/hr Piperacillin Sod/Tazobactam Sod (Zosyn 3.375 In Ns 100ml) 100 mls @ 200 mls/hr IVPB Q8 [facility] PRN Reason: Protocol Stop: 07/30/17 06:01 Last Admin: 07/24/17 06:30 Dose: 200 mls/hr Vancomycin HCl 1.5 gm/ Sodium (Chloride) 500 mls @ 167 mls/hr IVPB Q12H [facility] PRN Reason: Protocol Last Admin: 07/24/17 10:51 Dose: 167 mls/hr Mesalamine (Pentasa) 1,000 mg PO QID [facility] Last Admin: 07/24/17 09:53 Dose: 1,000 mg Ondansetron HCl (Zofran Inj) 4 mg IVP Q4H PRN PRN Reason: Nausea/Vomiting Last Admin: 07/23/17 20:43 Dose: 4 mg Paroxetine HCl (Paxil) 10 mg PO DAILY [facility] Last Admin: 07/24/17 09:54 Dose: 10 mg Pregabalin (Lyrica) 50 mg PO BID [facility] Last Admin: 07/24/17 09:53 Dose: 50 mg Quetiapine Fumarate (Seroquel Xr) 200 mg PO HS [facility] PRN Reason: Protocol Last Admin: 07/23/17 21:36 Dose: 200 mg Tamsulosin HCl (Flomax) 0.4 mg PO DAILY [facility] Last Admin: 07/24/17 09:54 Dose: 0.4 mg - Labs Labs: 07/24/17 08:33 07/24/17 08:33 PT 14.9 SECONDS (9.4-12.5) H 07/22/17 21:53 INR 1.30 (0.93-1.08) H 07/22/17 21:53 APTT 30.2 Seconds (25.1-36.5) 07/22/17 21:53 - Constitutional Appears: Well, Non-toxic, No Acute Distress - Extremities Exam Additional comments: left lower extremity focused exam dressing has some serosanginous drainage as well as some fecal matter on the outside vasc:DP pulse weakly palpable 1/4, PT pulses non-palpable. CFT > 3 seconds to all digits. Skin temperature warm to warm from proximal to distal. neuro:gross sensation diminished derm:left 2nd digit is erytheamtous and edematous, scant amount of serosanginous drainage noted to the distal tip with open ulceration noted, no malodor, no probe to bone noted. ortho:tenderness to palpation of left 2nd digit - Neurological Exam Neurological Exam: Alert, Awake, Oriented x3 - Psychiatric Exam Psychiatric exam: Normal Affect, Normal Mood Assessment and Plan - Assessment and Plan (Free Text) Assessment: 51 year old male with left 2nd digit cellulitis, rule out osteomyelitis Plan: patient examined and evaluated discussed in detail with attending, Dr. Quijano labs, chart, vitals reviewed; afebrile, WBC 4.3, ESR 55 wound culture pending cont IV abx per ID MRI: IMPRESSION: Minimal marrow edema in the 2nd distal phalanx suspicious for osteomyelitis. arterial doppler read pending left 2nd digit cleansed with normal sterile saline dressed with iodosorb, adaptic, 4x4, kerlix patient to keep surgical shoe on while ambulating podiatry will cont to follow patient while in house <Serena Quijano - Last Filed: 07/24/17 20:24> Objective - Vital Signs/Intake and Output Vital Signs (last 24 hours): Temp Pulse Resp BP Pulse Ox 97.2 F L 76 20 123/69 100 07/24/17 17:44 07/24/17 18:00 07/24/17 17:44 07/24/17 17:44 07/24/17 17:44 Intake and Output: 07/24/17 07/25/17 18:59 06:59 Intake Total 780 Balance 780 - Medications Medications: Current Medications Acetaminophen (Tylenol 325mg Tab) 650 mg PO Q6H PRN PRN Reason: Fever >100.4 F Amitriptyline HCl (Elavil) 10 mg PO HS [facility] Last Admin: 07/23/17 21:34 Dose: 10 mg Apixaban (Eliquis) 2.5 mg PO BID [facility] PRN Reason: Protocol Last Admin: 07/24/17 17:22 Dose: 2.5 mg Bupropion HCl (Wellbutrin Xl) 150 mg PO DAILY [facility] Last Admin: 07/24/17 09:53 Dose: 150 mg Cadexomer Iodine (Iodosorb) 0 gm TOP DAILY [facility] Last Admin: 07/24/17 12:51 Dose: Not Given Famotidine (Pepcid) 20 mg PO DAILY [facility] Last Admin: 07/24/17 09:54 Dose: 20 mg Sodium Chloride (Sodium Chloride 0.9%) 1,000 mls @ 100 mls/hr IV .Q10H [facility] Last Admin: 07/24/17 17:23 Dose: 100 mls/hr Piperacillin Sod/Tazobactam Sod (Zosyn 3.375 In Ns 100ml) 100 mls @ 200 mls/hr IVPB Q8 [facility] PRN Reason: Protocol Stop: 07/30/17 06:01 Last Admin: 07/24/17 13:40 Dose: 200 mls/hr Vancomycin HCl 1.5 gm/ Sodium (Chloride) 500 mls @ 167 mls/hr IVPB Q12H [facility] PRN Reason: Protocol Last Admin: 07/24/17 10:51 Dose: 167 mls/hr Mesalamine (Pentasa) 1,000 mg PO QID [facility] Last Admin: 07/24/17 17:22 Dose: 1,000 mg Ondansetron HCl (Zofran Inj) 4 mg IVP Q4H PRN PRN Reason: Nausea/Vomiting Last Admin: 07/23/17 20:43 Dose: 4 mg Paroxetine HCl (Paxil) 10 mg PO DAILY [facility] Last Admin: 07/24/17 09:54 Dose: 10 mg Pregabalin (Lyrica) 50 mg PO BID [facility] Last Admin: 07/24/17 17:22 Dose: 50 mg Quetiapine Fumarate (Seroquel Xr) 200 mg PO HS [facility] PRN Reason: Protocol Last Admin: 07/23/17 21:36 Dose: 200 mg Tamsulosin HCl (Flomax) 0.4 mg PO DAILY [facility] Last Admin: 07/24/17 09:54 Dose: 0.4 mg - Labs Labs: 07/24/17 08:33 07/24/17 08:33 PT 14.9 SECONDS (9.4-12.5) H 07/22/17 21:53 INR 1.30 (0.93-1.08) H 07/22/17 21:53 APTT 30.2 Seconds (25.1-36.5) 07/22/17 21:53 Attending/Attestation - Attestation I have personally seen and examined this patient.: No I have fully participated in the care of the patient.: No I have reviewed all pertinent clinical information, including history, physical exam and plan: No
[2017-07-24] MEDS: CADEXOMER IODINE 0.9% GEL 10G TOP SCH (12:51)
--- NOTE | 2017-07-24 14:00 | CP.PCM.PN ---
Subjective - Date & Time of Evaluation Date of Evaluation: 07/24/17 Time of Evaluation: 11:00 - Subjective Subjective: No new complaints, no fevers. Objective - Vital Signs/Intake and Output Vital Signs (last 24 hours): Temp Pulse Resp BP Pulse Ox 98.3 F 100 H 18 109/63 95 07/24/17 00:00 07/24/17 05:36 07/24/17 00:00 07/24/17 00:00 07/24/17 00:00 Intake and Output: 07/24/17 07/24/17 06:59 18:59 Intake Total 1815 Balance 1815 - Medications Medications: Current Medications Acetaminophen (Tylenol 325mg Tab) 650 mg PO Q6H PRN PRN Reason: Fever >100.4 F Amitriptyline HCl (Elavil) 10 mg PO HS [facility] Last Admin: 07/23/17 21:34 Dose: 10 mg Apixaban (Eliquis) 2.5 mg PO BID [facility] PRN Reason: Protocol Last Admin: 07/23/17 17:15 Dose: 2.5 mg Bupropion HCl (Wellbutrin Xl) 150 mg PO DAILY [facility] Last Admin: 07/23/17 09:16 Dose: 150 mg Cadexomer Iodine (Iodosorb) 0 gm TOP DAILY [facility] Last Admin: 07/23/17 09:17 Dose: Not Given Famotidine (Pepcid) 20 mg PO DAILY [facility] Last Admin: 07/23/17 09:16 Dose: 20 mg Sodium Chloride (Sodium Chloride 0.9%) 1,000 mls @ 100 mls/hr IV .Q10H [facility] Last Admin: 07/24/17 06:32 Dose: 100 mls/hr Vancomycin HCl (Vancomycin 1gm) 1 gm in 250 mls @ 167 mls/hr IVPB Q12H [facility] PRN Reason: Protocol Last Admin: 07/23/17 22:47 Dose: 167 mls/hr Piperacillin Sod/Tazobactam Sod (Zosyn 3.375 In Ns 100ml) 100 mls @ 200 mls/hr IVPB Q8 [facility] PRN Reason: Protocol Stop: 07/30/17 06:01 Last Admin: 07/24/17 06:30 Dose: 200 mls/hr Mesalamine (Pentasa) 1,000 mg PO QID [facility] Last Admin: 07/23/17 21:35 Dose: 1,000 mg Ondansetron HCl (Zofran Inj) 4 mg IVP Q4H PRN PRN Reason: Nausea/Vomiting Last Admin: 07/23/17 20:43 Dose: 4 mg Paroxetine HCl (Paxil) 10 mg PO DAILY [facility] Last Admin: 07/23/17 09:16 Dose: 10 mg Pregabalin (Lyrica) 50 mg PO BID [facility] Last Admin: 07/23/17 17:16 Dose: 50 mg Quetiapine Fumarate (Seroquel Xr) 200 mg PO HS [facility] PRN Reason: Protocol Last Admin: 07/23/17 21:36 Dose: 200 mg Tamsulosin HCl (Flomax) 0.4 mg PO DAILY [facility] Last Admin: 07/23/17 09:16 Dose: 0.4 mg - Labs Labs: 07/23/17 06:30 07/23/17 06:30 PT 14.9 SECONDS (9.4-12.5) H 07/22/17 21:53 INR 1.30 (0.93-1.08) H 07/22/17 21:53 APTT 30.2 Seconds (25.1-36.5) 07/22/17 21:53 - Constitutional Appears: Chronically Ill - Head Exam Head Exam: NORMAL INSPECTION - Neck Exam Neck Exam: absent: Meningismus - Respiratory Exam Respiratory Exam: Decreased Breath Sounds - Cardiovascular Exam Cardiovascular Exam: +S1, +S2 - GI/Abdominal Exam GI & Abdominal Exam: Soft. absent: Tenderness Assessment and Plan - Assessment and Plan (Free Text) Plan: Assessment left 2nd toe probable osteomyelitis history of sepsis due to MSSA bacteremia, consider port infection with associated infected right IJ thrombophlebitis S/P port removalhistory of severe sepsis due to methicillin-resistant coagulase negative staph bacteremia and right ankle cellulitis with MSSA Crohn's disease depression Susac syndrome (autoimmune disorder) psoriasis S/P right chest wall port-a-cath placement Plan continue Vancomycin and Zosyn pending wound cx; reviewed MRI of foot showing probable osteomyelitis follow up further plans of Podiatry
--- NOTE | 2017-07-24 18:35 | US ---
HISTORY: Leg pain and swelling. Evaluate for DVT PHYSICIAN(S): Jose Suero MD. TECHNIQUE: Duplex sonography and color-flow Doppler with graded compression were used to evaluate the deep venous systems of both lower extremities. FINDINGS: The visualized deep venous systems of both lower extremities are sonographically normal and compressible. Normal wave forms and augmentation are seen. There is no sonographic evidence for deep venous thrombosis in the visualized segments of both lower extremities. IMPRESSION: No sonographic evidence for deep venous thrombosis in the visualized segments of both lower extremities.
--- NOTE | 2017-07-24 18:42 | US ---
PROCEDURE: Lower extremity ROWDY exam HISTORY: Peripheral vascular disease with pain and claudication. PHYSICIAN(S): Jose Suero MD. FINDINGS: The resting ROWDY's are normal: right, 1.18and left, 1.10. The brachial systolic pressures are symmetric. The high thigh pressures are non-compressible. The high thigh PVR waveforms are normal and symmetric The calf PVR waveforms augment normally. No significant gradients are noted across the thighs. The ankle and metatarsal waveforms are relatively normal and symmetric. No significant pressure gradients are noted across the lower legs. IMPRESSION: 1. Relatively normal ROWDY and PVR examination at rest.
[2017-07-24] MEDS: QUEtiapine 200 mg XR Tab PO SCH (21:49)
[2017-07-25] MEDS: Piperacillin/Tazobact 3.375 gm 100 ML IVPB SCH ×3 (06:37→21:59)
[2017-07-25] MEDS ORDERED: Potassium Chloride 10 mEq ER Tab PO ONE (09:02)
--- NOTE | 2017-07-25 09:49 | CP.PCM.PN ---
Subjective - Date & Time of Evaluation Date of Evaluation: 07/25/17 Time of Evaluation: 09:44 - Subjective Subjective: Podiatry Progress Note for attending Dr. Quijano 51M seen at bedside with attending Dr. Quijano for infected left second digit with underlying OM. Patient is AAO x 3 and NAD at time of visit. States that his pain is well controlled to his toe. Denies any acute overnight events or any new pedal complaints at this time. Denies any recent N/V/F/C/CP/SOB/D/ posterior calf pain when squeezed Objective - Vital Signs/Intake and Output Vital Signs (last 24 hours): Temp Pulse Resp BP Pulse Ox 97.2 F L 75 20 123/69 100 07/24/17 17:44 07/24/17 22:00 07/24/17 17:44 07/24/17 17:44 07/24/17 17:44 Intake and Output: 07/25/17 07/25/17 06:59 18:59 Intake Total 600 Output Total 0 Balance 600 - Medications Medications: Current Medications Acetaminophen (Tylenol 325mg Tab) 650 mg PO Q6H PRN PRN Reason: Fever >100.4 F Amitriptyline HCl (Elavil) 10 mg PO HS [facility] Last Admin: 07/24/17 21:50 Dose: 10 mg Apixaban (Eliquis) 2.5 mg PO BID [facility] PRN Reason: Protocol Last Admin: 07/24/17 17:22 Dose: 2.5 mg Bupropion HCl (Wellbutrin Xl) 150 mg PO DAILY [facility] Last Admin: 07/24/17 09:53 Dose: 150 mg Cadexomer Iodine (Iodosorb) 0 gm TOP DAILY [facility] Last Admin: 07/24/17 12:51 Dose: Not Given Famotidine (Pepcid) 20 mg PO DAILY [facility] Last Admin: 07/24/17 09:54 Dose: 20 mg Piperacillin Sod/Tazobactam Sod (Zosyn 3.375 In Ns 100ml) 100 mls @ 200 mls/hr IVPB Q8 [facility] PRN Reason: Protocol Stop: 07/30/17 06:01 Last Admin: 07/25/17 06:37 Dose: 200 mls/hr Vancomycin HCl 1.5 gm/ Sodium (Chloride) 500 mls @ 167 mls/hr IVPB Q12H [facility] PRN Reason: Protocol Last Admin: 07/24/17 21:50 Dose: 167 mls/hr Mesalamine (Pentasa) 1,000 mg PO QID [facility] Last Admin: 07/24/17 21:49 Dose: 1,000 mg Ondansetron HCl (Zofran Inj) 4 mg IVP Q4H PRN PRN Reason: Nausea/Vomiting Last Admin: 07/23/17 20:43 Dose: 4 mg Paroxetine HCl (Paxil) 10 mg PO DAILY [facility] Last Admin: 07/24/17 09:54 Dose: 10 mg Pregabalin (Lyrica) 50 mg PO BID [facility] Last Admin: 07/24/17 17:22 Dose: 50 mg Quetiapine Fumarate (Seroquel Xr) 200 mg PO HS [facility] PRN Reason: Protocol Last Admin: 07/24/17 21:49 Dose: 200 mg Tamsulosin HCl (Flomax) 0.4 mg PO DAILY [facility] Last Admin: 07/24/17 09:54 Dose: 0.4 mg - Labs Labs: 07/24/17 08:33 07/24/17 08:33 PT 14.9 SECONDS (9.4-12.5) H 07/22/17 21:53 INR 1.30 (0.93-1.08) H 07/22/17 21:53 APTT 30.2 Seconds (25.1-36.5) 07/22/17 21:53 - Constitutional Appears: Well, Non-toxic, No Acute Distress - Head Exam Head Exam: ATRAUMATIC, NORMOCEPHALIC - Extremities Exam Additional comments: LLE focused exam: Vasc: DP pulse weakly palpable 1/4, PT pulses non-palpable. CFT > 3 seconds to all digits. Skin temperature warm to warm from proximal to distal. Moderate edema noted to left second digit Neuro: Epicritic and protective sensation grossly diminished b/l Derm: Left 2nd digit is erytheamtous with scant amount of serosanginous drainage noted to the distal tip with open ulceration noted, no malodor, no probe to bone, tracking, tunneling or undermining noted. Ortho: Tenderness to palpation of left 2nd digit. No other gross deformities noted - Neurological Exam Neurological Exam: Alert, Awake, Oriented x3 - Psychiatric Exam Psychiatric exam: Normal Affect, Normal Mood Assessment and Plan - Assessment and Plan (Free Text) Assessment: 51M with left second digit ulceration and underlying OM Plan: Patient seen and evaluated at bedside with attending Dr. Quijano Afebrile, absent leukocytosis 07/23 L foot wound cx: Staphylococcus species Continue IV abx per ID 07/22 Foot xray: Normal left foot radiographs 07/23 LE arterial duplex: Relatively normal ROWDY/PVR at rest 07/23 LE venous duplex: No evidence of DVT 07/23 LLE MRI: Minimal marrow edema in the distal second phalanx suspicious for OM Discussed with patient different treatment options for his OM including 4-6 weeks of IV abx vs. left second digit amputation. Patient states that he wanted some time to think over his options. Will discuss with patient again tomorrow in AM to determine what his decision is. Podiatry will continue to follow while patient in house
[2017-07-25] MEDS: buPROPion 150 mg/24 Hours XL Tab PO SCH (11:09)
[2017-07-25] MEDS: Mesalamine ER Cap 500 MG PO SCH ×4 (11:09→21:58)
[2017-07-25] MEDS: Vancomycin 1.5 GM in Sodium Chloride 0.9% 500 ML IVPB SCH (11:17)
[2017-07-25 12:03] LABS: BASO # 0.02 K/mm3 (0.0-2.0); BASO % 0.6 % (0.0-3.0); EOS # 0.1 (0.0-0.7); GRAN # 1.91 (1.4-6.5); GRAN % 59.4 % (50.0-68.0); HEMOGLOBIN 11.8 g/dL (14.0-18.0); LYMPH # 0.9 (1.2-3.4); LYMPH % 26.7 % (22.0-35.0); MEAN CELL VOLUME 90.2 fl (80.0-105.0); MEAN CORPUSCULAR HEMOGLOBIN 30.6 pg (25.0-35.0); MEAN CORPUSCULAR HGB CONC 33.9 g/dl (31.0-37.0); MEAN PLATELET VOLUME 9.8 fl (7.0-11.0); MONO # 0.3 (0.1-0.6); MONO % 9.3 % (1.0-6.0); RBC 3.86 10^6/uL (3.5-6.1); RED CELL DISTRIBUTION WIDTH 14.3 % (11.5-14.5); WHITE BLOOD COUNT 3.2 10^3/ul (4.5-11.0)
[2017-07-25 12:43] LABS: ALB/GLOB RATIO 1.2 (1.1-1.8); ALBUMIN 4.1 g/dL (3.0-4.8); ALT/SGPT 30 U/L (7-56); AST/SGOT 21 U/L (17-59); BLOOD UREA NITROGEN 6 mg/dL (7-21); CALCIUM 9.1 mg/dL (8.4-10.5); GFR AFRICAN-AMERICAN > 60; GFR NON-AFRICAN AMERICAN > 60
--- NOTE | 2017-07-25 14:06 | CP.PCM.PN ---
<Denys Saeed - Last Filed: 07/25/17 19:14> Subjective - Date & Time of Evaluation Date of Evaluation: 07/25/17 Time of Evaluation: 14:03 - Subjective Subjective: Patient seen and examined at bedside this morning. Patient in no acute distress upon examination. Patient does report urinating on himself this morning due to much fluid. He is upset in regards to his health status today and reports some depression. He denies any SI, HI, AH, VH, chest pain, shortness of breath, fevers, chills, changes in vision, or any other complaints. Objective - Vital Signs/Intake and Output Vital Signs (last 24 hours): Temp Pulse Resp BP Pulse Ox 98.2 F 82 20 113/64 97 07/25/17 10:04 07/25/17 10:04 07/25/17 10:04 07/25/17 10:04 07/25/17 10:04 Intake and Output: 07/25/17 07/25/17 06:59 18:59 Intake Total 600 Output Total 0 Balance 600 - Medications Medications: Current Medications Acetaminophen (Tylenol 325mg Tab) 650 mg PO Q6H PRN PRN Reason: Fever >100.4 F Amitriptyline HCl (Elavil) 10 mg PO HS [facility] Last Admin: 07/24/17 21:50 Dose: 10 mg Apixaban (Eliquis) 2.5 mg PO BID [facility] PRN Reason: Protocol Last Admin: 07/25/17 11:08 Dose: 2.5 mg Bupropion HCl (Wellbutrin Xl) 150 mg PO DAILY [facility] Last Admin: 07/25/17 11:09 Dose: 150 mg Cadexomer Iodine (Iodosorb) 0 gm TOP DAILY [facility] Last Admin: 07/24/17 12:51 Dose: Not Given Enoxaparin Sodium (Lovenox) 100 mg SC ONCE ONE PRN Reason: Protocol Stop: 07/25/17 19:01 Famotidine (Pepcid) 20 mg PO DAILY [facility] Last Admin: 07/25/17 11:09 Dose: 20 mg Piperacillin Sod/Tazobactam Sod (Zosyn 3.375 In Ns 100ml) 100 mls @ 200 mls/hr IVPB Q8 [facility] PRN Reason: Protocol Stop: 07/30/17 06:01 Last Admin: 07/25/17 13:52 Dose: 200 mls/hr Vancomycin HCl 1.5 gm/ Sodium (Chloride) 500 mls @ 167 mls/hr IVPB Q12H [facility] PRN Reason: Protocol Last Admin: 07/25/17 11:17 Dose: 167 mls/hr Mesalamine (Pentasa) 1,000 mg PO QID [facility] Last Admin: 07/25/17 11:09 Dose: 1,000 mg Ondansetron HCl (Zofran Inj) 4 mg IVP Q4H PRN PRN Reason: Nausea/Vomiting Last Admin: 07/23/17 20:43 Dose: 4 mg Paroxetine HCl (Paxil) 10 mg PO DAILY [facility] Last Admin: 07/25/17 11:09 Dose: 10 mg Pregabalin (Lyrica) 50 mg PO BID [facility] Last Admin: 07/25/17 11:09 Dose: 50 mg Quetiapine Fumarate (Seroquel Xr) 200 mg PO HS [facility] PRN Reason: Protocol Last Admin: 07/24/17 21:49 Dose: 200 mg Tamsulosin HCl (Flomax) 0.4 mg PO DAILY [facility] Last Admin: 07/25/17 11:09 Dose: 0.4 mg - Labs Labs: 07/25/17 11:55 07/25/17 11:55 PT 14.9 SECONDS (9.4-12.5) H 07/22/17 21:53 INR 1.30 (0.93-1.08) H 07/22/17 21:53 APTT 30.2 Seconds (25.1-36.5) 07/22/17 21:53 - Head Exam Head Exam: ATRAUMATIC, NORMAL INSPECTION, NORMOCEPHALIC - Eye Exam Eye Exam: EOMI, Normal appearance, PERRL Pupil Exam: NORMAL ACCOMODATION, PERRL - ENT Exam ENT Exam: Mucous Membranes Moist, Normal Exam - Neck Exam Neck Exam: Normal Inspection - Respiratory Exam Respiratory Exam: Clear to Ausculation Bilateral, NORMAL BREATHING PATTERN. absent: Rales, Rhonchi - Cardiovascular Exam Cardiovascular Exam: REGULAR RHYTHM, +S1, +S2 - GI/Abdominal Exam GI & Abdominal Exam: Soft, Normal Bowel Sounds Additional comments: Colostomy bag in place. No signs of erythema, discharge or inflammation. - Extremities Exam Extremities Exam: Full ROM. absent: Pedal Edema Additional comments: Left foot wrapped. Lower extremities appreciated bilaterally. Chronic venous stasis changes bilaterally. - Back Exam Back Exam: NORMAL INSPECTION. absent: CVA tenderness (L), CVA tenderness (R), paraspinal tenderness - Neurological Exam Neurological Exam: Alert, Awake, CN II-XII Intact, Oriented x3 - Psychiatric Exam Psychiatric exam: Depressed, Normal Mood - Skin Skin Exam: Dry, Intact, Normal Color Assessment and Plan - Assessment and Plan (Free Text) Assessment: Patient is a 51 year old male with past medical history of Crohn's disease, colostomy, Susac Syndrom, bilateral hearing loss who presented to the ED with 2 day history of left 2nd toe swelling and pain. Cultures growing MRSA. Plan: Sepsis likely 2/2 Left 2nd Toe Osteomyeolitis -Stable, Tmax 100.5, Afebrile with No leukocytosis -Received Vancomycin 1gm and Zosyn 3.375mg in the ED -Antibiotics: Vancomycin 1 gm Q12H, Zosyn 3.375 Q8H -Vancomycin trough 10.1. Will continue to monitor. -CXR negative -Foot X ray completed: negative -Lower extremity MRI showed minimal marrow edema in 2nd distal phlanx suspicious for osteomyelitis. Treating as Osteomyelitis. -Tylenol 650mg Q6H prn fever, Zofran 4mg Q4H prn nausea -Wound cultures: MRSA moderate growth. -Urine culture:Pending -Blood cultures:Negative [id number] -ID. help appreciated. -Podiatry. help appreciated Lower Extremity Edema -Last Echo 02/2017 showed EF 55-60%, trace Tricuspid regurg, aortic regurg -Bilateral venous dopplers negative Susac syndrome -Stable. -Patient follows with Dr López for IVIG treatment History of Depression -Psych consulted. Help appreciated. -Continue Seroquel 200mg PO HS -Paxil 10mg PO daily -Buproprion 150mg PO daily -Amitriptyline 10mg PO HS History of Crohn's Disease -Continue Pentasa 2 caps PO QID History of Acute occlusive thrombus -Upper extremity US from 02/2017 showed acute occlusive thrombus in R internal jugular vein that was related to port placement -Port was subsequently removed -Eliquis 2.5mg PO BID held in case of ?surgery. Will follow up. Hypomagnesemia -Magnesium 1.3 on admission -Repleted and Resolved. Will monitor with serial cmp's. History of Vitamin D Deficiency -Home med: Ergocalciferol 50,000 units PO Q7D (Wednesdays) - Vitamin D level 50.6 BPH -Continue Flomax 0.4mg PO daily GI/DVT ppx: -Pepcid 20mg PO daily -Eliquis 2.5mg PO BID held Dispo: Patient unsure of whether he would want the surgery versus the IV antibiotics for 4 to 6 weeks. Will discuss options with Podiatry and Infectious Disease. Plan discussed with Dr. Herminia Saeed DO PGY-1 <Marcy Hope - Last Filed: 07/26/17 16:53> Objective - Vital Signs/Intake and Output Vital Signs (last 24 hours): Temp Pulse Resp BP Pulse Ox 97.7 F 64 18 134/72 98 07/26/17 07:48 07/26/17 07:48 07/26/17 07:48 07/26/17 07:48 07/26/17 07:48 Intake and Output: 07/26/17 07/26/17 06:59 18:59 Intake Total 990 Balance 990 - Medications Medications: Current Medications Acetaminophen (Tylenol 325mg Tab) 650 mg PO Q6H PRN PRN Reason: Fever >100.4 F Amitriptyline HCl (Elavil) 10 mg PO HS [facility] Last Admin: 07/25/17 21:58 Dose: 10 mg Apixaban (Eliquis) 2.5 mg PO BID [facility] PRN Reason: Protocol Last Admin: 07/25/17 11:08 Dose: 2.5 mg Bupropion HCl (Wellbutrin Xl) 150 mg PO DAILY [facility] Last Admin: 07/26/17 09:34 Dose: 150 mg Cadexomer Iodine (Iodosorb) 0 gm TOP DAILY [facility] Last Admin: 07/24/17 12:51 Dose: Not Given Famotidine (Pepcid) 20 mg PO DAILY [facility] Last Admin: 07/26/17 09:33 Dose: 20 mg Vancomycin HCl 1.5 gm/ Sodium (Chloride) 500 mls @ 167 mls/hr IVPB Q12H [facility] PRN Reason: Protocol Last Admin: 07/26/17 09:34 Dose: 167 mls/hr Mesalamine (Pentasa) 1,000 mg PO QID [facility] Last Admin: 07/26/17 09:34 Dose: 1,000 mg Ondansetron HCl (Zofran Inj) 4 mg IVP Q4H PRN PRN Reason: Nausea/Vomiting Last Admin: 07/23/17 20:43 Dose: 4 mg Paroxetine HCl (Paxil) 10 mg PO DAILY [facility] Last Admin: 07/26/17 09:33 Dose: 10 mg Pregabalin (Lyrica) 50 mg PO BID [facility] Last Admin: 07/26/17 09:33 Dose: 50 mg Quetiapine Fumarate (Seroquel Xr) 200 mg PO HS [facility] PRN Reason: Protocol Last Admin: 07/25/17 21:58 Dose: 200 mg Tamsulosin HCl (Flomax) 0.4 mg PO DAILY [facility] Last Admin: 07/26/17 09:33 Dose: 0.4 mg - Labs Labs: 07/26/17 09:30 07/26/17 09:30 PT 14.9 SECONDS (9.4-12.5) H 07/22/17 21:53 INR 1.30 (0.93-1.08) H 07/22/17 21:53 APTT 30.2 Seconds (25.1-36.5) 07/22/17 21:53 Attending/Attestation - Attestation I have personally seen and examined this patient.: Yes I have fully participated in the care of the patient.: Yes I have reviewed all pertinent clinical information, including history, physical exam and plan: Yes Notes (Text): 07/26/17 16:48 attending note; Patient seen and examined with resident. Patient is a 51 year old male with past medical history of Crohn's disease, colostomy, Susac Syndrome, bilateral hearing loss who presented to the ED with 2 day history of left 2nd toe swelling and pain. Cultures growing MRSA. patient is currently on IV vancomycin. ID evaluation appreciated. MRI showed acute osteomyelitis. Patient is refusing surgery. Follow-up with [employer]. If patient refuses surgery might need long-term IV antibiotics. History of depression; we'll get psychiatric evaluation. Denies any suicidal ideation. Susac syndrome; follow-up with Dr. López closely. history of DVT in the past. Continue Eliquis. case discussed with case worker for discharge planning.
--- NOTE | 2017-07-25 15:09 | CP.PCM.PN ---
Subjective - Date & Time of Evaluation Date of Evaluation: 07/25/17 Time of Evaluation: 11:55 - Subjective Subjective: No new complaints, still thinking about surgery on the left 2nd toe, no fevers, no nausea. Objective - Vital Signs/Intake and Output Vital Signs (last 24 hours): Temp Pulse Resp BP Pulse Ox 98.2 F 82 20 113/64 97 07/25/17 10:04 07/25/17 10:04 07/25/17 10:04 07/25/17 10:04 07/25/17 10:04 Intake and Output: 07/25/17 07/25/17 06:59 18:59 Intake Total 600 Output Total 0 Balance 600 - Medications Medications: Current Medications Acetaminophen (Tylenol 325mg Tab) 650 mg PO Q6H PRN PRN Reason: Fever >100.4 F Amitriptyline HCl (Elavil) 10 mg PO HS [facility] Last Admin: 07/24/17 21:50 Dose: 10 mg Apixaban (Eliquis) 2.5 mg PO BID [facility] PRN Reason: Protocol Last Admin: 07/24/17 17:22 Dose: 2.5 mg Bupropion HCl (Wellbutrin Xl) 150 mg PO DAILY [facility] Last Admin: 07/24/17 09:53 Dose: 150 mg Cadexomer Iodine (Iodosorb) 0 gm TOP DAILY [facility] Last Admin: 07/24/17 12:51 Dose: Not Given Famotidine (Pepcid) 20 mg PO DAILY [facility] Last Admin: 07/24/17 09:54 Dose: 20 mg Piperacillin Sod/Tazobactam Sod (Zosyn 3.375 In Ns 100ml) 100 mls @ 200 mls/hr IVPB Q8 [facility] PRN Reason: Protocol Stop: 07/30/17 06:01 Last Admin: 07/25/17 06:37 Dose: 200 mls/hr Vancomycin HCl 1.5 gm/ Sodium (Chloride) 500 mls @ 167 mls/hr IVPB Q12H [facility] PRN Reason: Protocol Last Admin: 07/24/17 21:50 Dose: 167 mls/hr Mesalamine (Pentasa) 1,000 mg PO QID [facility] Last Admin: 07/24/17 21:49 Dose: 1,000 mg Ondansetron HCl (Zofran Inj) 4 mg IVP Q4H PRN PRN Reason: Nausea/Vomiting Last Admin: 07/23/17 20:43 Dose: 4 mg Paroxetine HCl (Paxil) 10 mg PO DAILY [facility] Last Admin: 07/24/17 09:54 Dose: 10 mg Pregabalin (Lyrica) 50 mg PO BID [facility] Last Admin: 07/24/17 17:22 Dose: 50 mg Quetiapine Fumarate (Seroquel Xr) 200 mg PO HS [facility] PRN Reason: Protocol Last Admin: 07/24/17 21:49 Dose: 200 mg Tamsulosin HCl (Flomax) 0.4 mg PO DAILY [facility] Last Admin: 07/24/17 09:54 Dose: 0.4 mg - Labs Labs: 07/24/17 08:33 07/24/17 08:33 PT 14.9 SECONDS (9.4-12.5) H 07/22/17 21:53 INR 1.30 (0.93-1.08) H 07/22/17 21:53 APTT 30.2 Seconds (25.1-36.5) 07/22/17 21:53 - Constitutional Appears: Chronically Ill - Head Exam Head Exam: NORMAL INSPECTION - Neck Exam Neck Exam: absent: Meningismus - Respiratory Exam Respiratory Exam: Decreased Breath Sounds - Cardiovascular Exam Cardiovascular Exam: +S1, +S2 - GI/Abdominal Exam GI & Abdominal Exam: Soft. absent: Tenderness - Extremities Exam Additional comments: left foot with dressings in place Assessment and Plan - Assessment and Plan (Free Text) Plan: Assessment left 2nd toe probable osteomyelitis with MRSA history of sepsis due to MSSA bacteremia, consider port infection with associated infected right IJ thrombophlebitis S/P port removalhistory of severe sepsis due to methicillin-resistant coagulase negative staph bacteremia and right ankle cellulitis with MSSA Crohn's disease depression Susac syndrome (autoimmune disorder) psoriasis S/P right chest wall port-a-cath placement Plan continue Vancomycin and will get Vanco trough and follow up decision to do surgery; reviewed MRI of foot showing probable osteomyelitis
[2017-07-25] MEDS ORDERED: Enoxaparin 100 mg Syringe SC ONE (19:00)
[2017-07-25] MEDS: QUEtiapine 200 mg XR Tab PO SCH (21:58)
[2017-07-26] MEDS: Vancomycin 1.5 GM in Sodium Chloride 0.9% 500 ML IVPB SCH ×3 (00:10→21:33)
[2017-07-26] MEDS: Piperacillin/Tazobact 3.375 gm 100 ML IVPB SCH (05:49)
[2017-07-26] MEDS: Mesalamine ER Cap 500 MG PO SCH ×4 (09:34→21:33)
[2017-07-26] MEDS: buPROPion 150 mg/24 Hours XL Tab PO SCH (09:34)
[2017-07-26 09:53] LABS: BASO # 0.01 K/mm3 (0.0-2.0); BASO % 0.3 % (0.0-3.0); EOS # 0.1 (0.0-0.7); EOS % 4.9 % (1.5-5.0); GRAN # 1.66 (1.4-6.5); GRAN % 58.1 % (50.0-68.0); HEMOGLOBIN 11.3 g/dL (14.0-18.0); LYMPH # 0.8 (1.2-3.4); LYMPH % 28.7 % (22.0-35.0); MEAN CELL VOLUME 88.3 fl (80.0-105.0); MEAN CORPUSCULAR HEMOGLOBIN 30.8 pg (25.0-35.0); MEAN CORPUSCULAR HGB CONC 34.9 g/dl (31.0-37.0); MEAN PLATELET VOLUME 9.7 fl (7.0-11.0); MONO # 0.2 (0.1-0.6); RBC 3.67 10^6/uL (3.5-6.1)
[2017-07-26 10:02] LABS: WHITE BLOOD COUNT 2.9 10^3/ul (4.5-11.0)
[2017-07-26 10:04] LABS: ALB/GLOB RATIO 1.2 (1.1-1.8); ALBUMIN 3.6 g/dL (3.0-4.8); ALT/SGPT 27 U/L (7-56); AST/SGOT 18 U/L (17-59); BLOOD UREA NITROGEN 5 mg/dL (7-21); CALCIUM 8.8 mg/dL (8.4-10.5); GFR AFRICAN-AMERICAN > 60; GFR NON-AFRICAN AMERICAN > 60
--- NOTE | 2017-07-26 10:34 | CP.PCM.PN ---
<Denys Saeed - Last Filed: 07/26/17 16:29> Subjective - Date & Time of Evaluation Date of Evaluation: 07/26/17 Time of Evaluation: 10:33 - Subjective Subjective: Patient seen and examined at bedside. Per nursing no acute events occurred overnight. Patient reports feeling tired of all of the surgeries. Patient denies any chest pain, fevers, chills, nausea, vomiting, changes in vision, headaches, abdominal pain, or any other complaints. Objective - Vital Signs/Intake and Output Vital Signs (last 24 hours): Temp Pulse Resp BP Pulse Ox 97.7 F 64 18 134/72 98 07/26/17 07:48 07/26/17 07:48 07/26/17 07:48 07/26/17 07:48 07/26/17 07:48 Intake and Output: 07/26/17 07/26/17 06:59 18:59 Intake Total 990 Balance 990 - Medications Medications: Current Medications Acetaminophen (Tylenol 325mg Tab) 650 mg PO Q6H PRN PRN Reason: Fever >100.4 F Amitriptyline HCl (Elavil) 10 mg PO HS [facility] Last Admin: 07/25/17 21:58 Dose: 10 mg Apixaban (Eliquis) 2.5 mg PO BID [facility] PRN Reason: Protocol Last Admin: 07/25/17 11:08 Dose: 2.5 mg Bupropion HCl (Wellbutrin Xl) 150 mg PO DAILY [facility] Last Admin: 07/26/17 09:34 Dose: 150 mg Cadexomer Iodine (Iodosorb) 0 gm TOP DAILY [facility] Last Admin: 07/24/17 12:51 Dose: Not Given Famotidine (Pepcid) 20 mg PO DAILY [facility] Last Admin: 07/26/17 09:33 Dose: 20 mg Vancomycin HCl 1.5 gm/ Sodium (Chloride) 500 mls @ 167 mls/hr IVPB Q12H [facility] PRN Reason: Protocol Last Admin: 07/26/17 09:34 Dose: 167 mls/hr Mesalamine (Pentasa) 1,000 mg PO QID [facility] Last Admin: 07/26/17 09:34 Dose: 1,000 mg Ondansetron HCl (Zofran Inj) 4 mg IVP Q4H PRN PRN Reason: Nausea/Vomiting Last Admin: 07/23/17 20:43 Dose: 4 mg Paroxetine HCl (Paxil) 10 mg PO DAILY [facility] Last Admin: 07/26/17 09:33 Dose: 10 mg Pregabalin (Lyrica) 50 mg PO BID [facility] Last Admin: 07/26/17 09:33 Dose: 50 mg Quetiapine Fumarate (Seroquel Xr) 200 mg PO [facility] PRN Reason: Protocol Last Admin: 07/25/17 21:58 Dose: 200 mg Tamsulosin HCl (Flomax) 0.4 mg PO DAILY [facility] Last Admin: 07/26/17 09:33 Dose: 0.4 mg - Labs Labs: 07/26/17 09:30 07/26/17 09:30 PT 14.9 SECONDS (9.4-12.5) H 07/22/17 21:53 INR 1.30 (0.93-1.08) H 07/22/17 21:53 APTT 30.2 Seconds (25.1-36.5) 07/22/17 21:53 - Head Exam Head Exam: ATRAUMATIC, NORMAL INSPECTION, NORMOCEPHALIC - Eye Exam Eye Exam: EOMI, Normal appearance, PERRL Pupil Exam: NORMAL ACCOMODATION - ENT Exam ENT Exam: Mucous Membranes Moist, Normal Oropharynx - Neck Exam Neck Exam: Normal Inspection - Respiratory Exam Respiratory Exam: Clear to Ausculation Bilateral, NORMAL BREATHING PATTERN. absent: Prolonged Expiratory Phase, Respiratory Distress - Cardiovascular Exam Cardiovascular Exam: REGULAR RHYTHM, +S1, +S2 - GI/Abdominal Exam GI & Abdominal Exam: Soft, Normal Bowel Sounds. absent: Rigid, Hyperactive Bowel Sounds - Back Exam Back Exam: NORMAL INSPECTION. absent: CVA tenderness (R), paraspinal tenderness - Neurological Exam Neurological Exam: Alert, Awake, CN II-XII Intact, Oriented x3 - Psychiatric Exam Psychiatric exam: Depressed - Skin Skin Exam: Dry, Intact, Normal Color Assessment and Plan - Assessment and Plan (Free Text) Assessment: Patient is a 51 year old male with past medical history of Crohn's disease, colostomy, Susac Syndrom, bilateral hearing loss who presented to the ED with 2 day history of left 2nd toe swelling and pain. Cultures growing MRSA. Plan: Sepsis likely 2/2 Left 2nd Toe Osteomyeolitis -Stable, Tmax 100.5, Afebrile with No leukocytosis -Received Vancomycin 1gm and Zosyn 3.375mg in the ED -Antibiotics: Vancomycin 1 gm Q12H, Zosyn 3.375 Q8H -Vancomycin trough 15. Will continue to monitor. -CXR negative -Foot X ray completed: negative -Lower extremity MRI showed minimal marrow edema in 2nd distal phlanx suspicious for osteomyelitis. Treating as Osteomyelitis. -Tylenol 650mg Q6H prn fever, Zofran 4mg Q4H prn nausea -Wound cultures: MRSA moderate growth. -Urine culture:Pending -Blood cultures:Negative [id number] -ID. help appreciated. -Podiatry. help appreciated Lower Extremity Edema -Last Echo 02/2017 showed EF 55-60%, trace Tricuspid regurg, aortic regurg -Bilateral venous dopplers negative Susac syndrome -Stable. -Patient follows with Dr López for IVIG treatment History of Depression -Psych consulted. Help appreciated. -Continue Seroquel 200mg PO HS -Paxil 10mg PO daily -Buproprion 150mg PO daily -Amitriptyline 10mg PO HS History of Crohn's Disease -Continue Pentasa 2 caps PO QID History of Acute occlusive thrombus -Upper extremity US from 02/2017 showed acute occlusive thrombus in R internal jugular vein that was related to port placement -Port was subsequently removed -Eliquis 2.5mg PO BID held in case of ?surgery. Will follow up. Hypomagnesemia -Magnesium 1.3 on admission -Repleted and Resolved. Will monitor with serial cmp's. History of Vitamin D Deficiency -Home med: Ergocalciferol 50,000 units PO Q7D (Wednesdays) - Vitamin D level 50.6 BPH -Continue Flomax 0.4mg PO daily GI/DVT ppx: -Pepcid 20mg PO daily -Eliquis 2.5mg PO BID held Dispo: Patient still unsure of whether he would want the surgery versus the IV antibiotics for 4 to 6 weeks. Will discuss options with Podiatry and Infectious Disease. Plan discussed with Dr. Herminia Saeed DO PGY-1 <Marcy Hope - Last Filed: 07/26/17 16:56> Objective - Vital Signs/Intake and Output Vital Signs (last 24 hours): Temp Pulse Resp BP Pulse Ox 97.7 F 64 18 134/72 98 07/26/17 07:48 07/26/17 07:48 07/26/17 07:48 07/26/17 07:48 07/26/17 07:48 Intake and Output: 07/26/17 07/26/17 06:59 18:59 Intake Total 990 Balance 990 - Medications Medications: Current Medications Acetaminophen (Tylenol 325mg Tab) 650 mg PO Q6H PRN PRN Reason: Fever >100.4 F Amitriptyline HCl (Elavil) 10 mg PO HS [facility] Last Admin: 07/25/17 21:58 Dose: 10 mg Apixaban (Eliquis) 2.5 mg PO BID [facility] PRN Reason: Protocol Last Admin: 07/25/17 11:08 Dose: 2.5 mg Bupropion HCl (Wellbutrin Xl) 150 mg PO DAILY [facility] Last Admin: 07/26/17 09:34 Dose: 150 mg Cadexomer Iodine (Iodosorb) 0 gm TOP DAILY [facility] Last Admin: 07/24/17 12:51 Dose: Not Given Famotidine (Pepcid) 20 mg PO DAILY [facility] Last Admin: 07/26/17 09:33 Dose: 20 mg Vancomycin HCl 1.5 gm/ Sodium (Chloride) 500 mls @ 167 mls/hr IVPB Q12H [facility] PRN Reason: Protocol Last Admin: 07/26/17 09:34 Dose: 167 mls/hr Mesalamine (Pentasa) 1,000 mg PO QID [facility] Last Admin: 07/26/17 09:34 Dose: 1,000 mg Ondansetron HCl (Zofran Inj) 4 mg IVP Q4H PRN PRN Reason: Nausea/Vomiting Last Admin: 07/23/17 20:43 Dose: 4 mg Paroxetine HCl (Paxil) 10 mg PO DAILY [facility] Last Admin: 07/26/17 09:33 Dose: 10 mg Pregabalin (Lyrica) 50 mg PO BID [facility] Last Admin: 07/26/17 09:33 Dose: 50 mg Quetiapine Fumarate (Seroquel Xr) 200 mg PO HS [facility] PRN Reason: Protocol Last Admin: 07/25/17 21:58 Dose: 200 mg Tamsulosin HCl (Flomax) 0.4 mg PO DAILY [facility] Last Admin: 07/26/17 09:33 Dose: 0.4 mg - Labs Labs: 07/26/17 09:30 07/26/17 09:30 PT 14.9 SECONDS (9.4-12.5) H 07/22/17 21:53 INR 1.30 (0.93-1.08) H 07/22/17 21:53 APTT 30.2 Seconds (25.1-36.5) 07/22/17 21:53 Attending/Attestation - Attestation I have personally seen and examined this patient.: Yes I have fully participated in the care of the patient.: Yes I have reviewed all pertinent clinical information, including history, physical exam and plan: Yes Notes (Text): 07/26/17 16:53 attending note; Patient seen and examined with resident. Patient is a 51 year old male with past medical history of Crohn's disease, colostomy, Susac Syndrome, bilateral hearing loss who presented to the ED with 2 day history of left 2nd toe swelling and pain. Cultures growing MRSA. patient is currently on IV vancomycin. ID evaluation appreciated. MRI showed acute osteomyelitis. Patient is refusing surgery. Follow-up with database consultant. patient needs IV vancomycin for 4-6 weeks. History of depression; psychiatric evaluation appreciated. Denies any suicidal ideation. Susac syndrome; follow-up with Dr. López closely. history of DVT in the past. Continue Eliquis. case discussed with caser up for discharge planning / outpatient antibiotics and arrangements. upon discharge the patient will follow-up with PMD Dr. Camacho.
--- NOTE | 2017-07-26 12:51 | CP.PCM.PN ---
<Sandeep Liao - Last Filed: 07/26/17 12:46> Subjective - Date & Time of Evaluation Date of Evaluation: 07/26/17 Time of Evaluation: 12:48 - Subjective Subjective: Podiatry Progress Note for Dr. Garsia 51M seen at bedside with attending Dr. Garsia for infected left second digit with underlying OM. Patient is AAO x 3 and NAD, resting comfortably in bed at time of visit. Denies any acute overnight events, new pedal complaints or pain. States that he does not want to have surgery performed on his infected digit and would prefer to undergo 4-6 weeks of IV abx. Denies any recent N/V/F/C/CP/ SOB. Objective - Vital Signs/Intake and Output Vital Signs (last 24 hours): Temp Pulse Resp BP Pulse Ox 97.7 F 64 18 134/72 98 07/26/17 07:48 07/26/17 07:48 07/26/17 07:48 07/26/17 07:48 07/26/17 07:48 Intake and Output: 07/26/17 07/26/17 06:59 18:59 Intake Total 990 Balance 990 - Medications Medications: Current Medications Acetaminophen (Tylenol 325mg Tab) 650 mg PO Q6H PRN PRN Reason: Fever >100.4 F Amitriptyline HCl (Elavil) 10 mg PO HS [facility] Last Admin: 07/25/17 21:58 Dose: 10 mg Apixaban (Eliquis) 2.5 mg PO BID [facility] PRN Reason: Protocol Last Admin: 07/25/17 11:08 Dose: 2.5 mg Bupropion HCl (Wellbutrin Xl) 150 mg PO DAILY [facility] Last Admin: 07/26/17 09:34 Dose: 150 mg Cadexomer Iodine (Iodosorb) 0 gm TOP DAILY [facility] Last Admin: 07/24/17 12:51 Dose: Not Given Famotidine (Pepcid) 20 mg PO DAILY [facility] Last Admin: 07/26/17 09:33 Dose: 20 mg Vancomycin HCl 1.5 gm/ Sodium (Chloride) 500 mls @ 167 mls/hr IVPB Q12H [facility] PRN Reason: Protocol Last Admin: 07/26/17 09:34 Dose: 167 mls/hr Mesalamine (Pentasa) 1,000 mg PO QID [facility] Last Admin: 06/12/18 09:34 Dose: 1,000 mg Ondansetron HCl (Zofran Inj) 4 mg IVP Q4H PRN PRN Reason: Nausea/Vomiting Last Admin: 07/23/17 20:43 Dose: 4 mg Paroxetine HCl (Paxil) 10 mg PO DAILY [facility] Last Admin: 07/26/17 09:33 Dose: 10 mg Pregabalin (Lyrica) 50 mg PO BID [facility] Last Admin: 07/26/17 09:33 Dose: 50 mg Quetiapine Fumarate (Seroquel Xr) 200 mg PO HS [facility] PRN Reason: Protocol Last Admin: 07/25/17 21:58 Dose: 200 mg Tamsulosin HCl (Flomax) 0.4 mg PO DAILY [facility] Last Admin: 07/26/17 09:33 Dose: 0.4 mg - Labs Labs: 07/26/17 09:30 07/26/17 09:30 PT 14.9 SECONDS (9.4-12.5) H 07/22/17 21:53 INR 1.30 (0.93-1.08) H 07/22/17 21:53 APTT 30.2 Seconds (25.1-36.5) 07/22/17 21:53 - Constitutional Appears: Well, Non-toxic, No Acute Distress - Head Exam Head Exam: ATRAUMATIC, NORMOCEPHALIC - Extremities Exam Additional comments: LLE focused exam: Dressings seen to be tattered and not intact to patients foot Vasc: DP pulse weakly palpable 1/4, PT pulses non-palpable. CFT > 3 seconds to all digits. Skin temperature warm to warm from proximal to distal. Moderate edema noted to left second digit Neuro: Epicritic and protective sensation grossly diminished b/l Derm: Left 2nd digit less erythematous than yesterday. Scant amount of serous drainage noted to the distal tip with open ulceration noted, no malodor, no probe to bone, tracking, tunneling or undermining noted. Ortho: Tenderness to palpation of left 2nd digit. No other gross deformities noted - Neurological Exam Neurological Exam: Alert, Awake, Oriented x3 - Psychiatric Exam Psychiatric exam: Normal Affect, Normal Mood Assessment and Plan - Assessment and Plan (Free Text) Assessment: 51M seen at bedside with attending Dr. Garsia for infected left second digit with underlying OM Plan: Patient seen and evaluated with attending Dr. Garsia WBC 2.9, afebrile 07/23 Wound cx left foot: MRSA Continue IV abx per ID 07/22 Foot xray: Normal left foot radiographs 07/23 LE arterial duplex: Relatively normal ROWDY/PVR at rest 07/23 LE venous duplex: No evidence of DVT 07/23 LLE MRI: Minimal marrow edema in the distal second phalanx suspicious for OM Discussed with patient the risks, benefits, and potential complications of choosing to have surgery on his infected second digit vs. undergoing 4-6 weeks of IV treatment for the infection. Patient demonstrates good understanding and opts for IV abx at this time. Patient is aware that if IV abx do not cure his infection, he will most likely need to have amputation of the infection site Dressed patient's toe with DSD No plan for surgical intervention at this time 4-6 weeks IV abx per ID recs Podiatry will continue to follow while patient in house <Robin Garsia - Last Filed: 07/26/17 16:16> Objective - Vital Signs/Intake and Output Vital Signs (last 24 hours): Temp Pulse Resp BP Pulse Ox 97.7 F 64 18 134/72 98 07/26/17 07:48 07/26/17 07:48 07/26/17 07:48 07/26/17 07:48 07/26/17 07:48 Intake and Output: 07/26/17 07/26/17 06:59 18:59 Intake Total 990 Balance 990 - Medications Medications: Current Medications Acetaminophen (Tylenol 325mg Tab) 650 mg PO Q6H PRN PRN Reason: Fever >100.4 F Amitriptyline HCl (Elavil) 10 mg PO HS [facility] Last Admin: 07/25/17 21:58 Dose: 10 mg Apixaban (Eliquis) 2.5 mg PO BID [facility] PRN Reason: Protocol Last Admin: 07/25/17 11:08 Dose: 2.5 mg Bupropion HCl (Wellbutrin Xl) 150 mg PO DAILY [facility] Last Admin: 07/26/17 09:34 Dose: 150 mg Cadexomer Iodine (Iodosorb) 0 gm TOP DAILY [facility] Last Admin: 07/24/17 12:51 Dose: Not Given Famotidine (Pepcid) 20 mg PO DAILY [facility] Last Admin: 07/26/17 09:33 Dose: 20 mg Vancomycin HCl 1.5 gm/ Sodium (Chloride) 500 mls @ 167 mls/hr IVPB Q12H [facility] PRN Reason: Protocol Last Admin: 07/26/17 09:34 Dose: 167 mls/hr Mesalamine (Pentasa) 1,000 mg PO QID [facility] Last Admin: 07/26/17 09:34 Dose: 1,000 mg Ondansetron HCl (Zofran Inj) 4 mg IVP Q4H PRN PRN Reason: Nausea/Vomiting Last Admin: 07/23/17 20:43 Dose: 4 mg Paroxetine HCl (Paxil) 10 mg PO DAILY [facility] Last Admin: 07/26/17 09:33 Dose: 10 mg Pregabalin (Lyrica) 50 mg PO BID [facility] Last Admin: 07/26/17 09:33 Dose: 50 mg Quetiapine Fumarate (Seroquel Xr) 200 mg PO HS [facility] PRN Reason: Protocol Last Admin: 07/25/17 21:58 Dose: 200 mg Tamsulosin HCl (Flomax) 0.4 mg PO DAILY [facility] Last Admin: 07/26/17 09:33 Dose: 0.4 mg - Labs Labs: 07/26/17 09:30 07/26/17 09:30 PT 14.9 SECONDS (9.4-12.5) H 07/22/17 21:53 INR 1.30 (0.93-1.08) H 07/22/17 21:53 APTT 30.2 Seconds (25.1-36.5) 07/22/17 21:53 Attending/Attestation - Attestation I have personally seen and examined this patient.: Yes I have fully participated in the care of the patient.: Yes I have reviewed all pertinent clinical information, including history, physical exam and plan: Yes
--- NOTE | 2017-07-26 17:05 | CON ---
DATE: 07/26/2017 HISTORY OF PRESENT ILLNESS: In short, the patient is a 51-year-old male with multiple medical problems including Crohn's disease, colostomy, Susac's syndrome, bilateral hearing loss. The patient has pain in the left second toe, swelling for what he was admitted on the medical site. The patient had MRSA growing in the cultures. The patient was found to have osteomyelitis and sepsis. Psych consult was called for evaluation of possible depressive symptoms and the patient was refusing to have amputation of his toe. During the interview, the patient reported that he feels depressed and hopeless. The patient reported that he has a lot of medical issues and he keeps coming back to the hospital. The patient reported initially he does not want to have surgery and did not want to have amputated his toe, but right now he is willing to do so. The patient reported that he feels depressed. He is tired. He is anxious and not able to sleep and constantly in pain. The patient reported that he is giving up on life, but denied any intent or plan to kill himself. The patient denied history of being admitted to the Psychiatric Inpatient Unit. The patient denied history of suicidal attempts. The patient said that he does not know what medications he is taking, but based on the medication list, the patient is on multiple psychotropic medications. The patient is on Elavil 10 mg at the nighttime, Wellbutrin 150 mg at the morning time. The patient is on Paxil 10 mg daily, Lyrica 50 mg twice a day and Seroquel extended release 200 mg at the nighttime. This rfp writer is not sure that he has any psychiatrist in the community or not, but the patient denied. Vital signs: Temperature 97.7, pulse is 64, blood pressure 134/72, respirations 18, oxygen saturation is 98. Labs reviewed. WBC cells 2.9, hemoglobin 11.3 and 32.4. Coagulation reviewed. Blood gas reviewed. Chemistry reviewed. Potassium 3.5, chloride 109. Toxicology reviewed. Vancomycin trough is 15, which is high. Microbiologic: MRSA reports reviewed. MENTAL STATUS EXAMINATION: The patient appears to be depressed and anxious. The patient had intermittent eye contact. Speech was normal rate, but low volume. Thought process seems to be coherent and goal directed, but at times circumstantial. Thought content, the patient denied visual, auditory or tactile hallucinations. Denied paranoid ideation, but reported to feel hopeless at times, has passive wish to be , but denied any intent or plan to kill himself. Insight and judgment seems to be limited. Impulses are well controlled. IMPRESSION: Most likely, the patient has major depressive disorder versus mood disorder due to general medical condition. PLAN: Continue current medication, current management. This rfp writer is not sure why the patient is on three antidepressants right now, but most likely the patient might benefit from discontinuing two of them and maximize the dose of one of the medication. This rfp writer will follow up and advise accordingly. During the interview, the patient wants to have amputation of his infected toe. This message was passed to the primary team. We will follow up and advise accordingly. Should you have any questions, give me a call back. Brandie Schaefer MD
--- NOTE | 2017-07-26 17:34 | CP.PCM.PN ---
Subjective - Date & Time of Evaluation Date of Evaluation: 07/26/17 Time of Evaluation: 10:30 - Subjective Subjective: Patient states he does not want to have toe amputation and wants to do antibiotic therapy. No fevers, no nausea. Objective - Vital Signs/Intake and Output Vital Signs (last 24 hours): Temp Pulse Resp BP Pulse Ox 98 F 72 17 132/82 97 07/26/17 00:00 07/26/17 05:34 07/26/17 00:00 07/26/17 00:00 07/26/17 00:00 Intake and Output: 07/26/17 07/26/17 06:59 18:59 Intake Total 990 Balance 990 - Medications Medications: Current Medications Acetaminophen (Tylenol 325mg Tab) 650 mg PO Q6H PRN PRN Reason: Fever >100.4 F Amitriptyline HCl (Elavil) 10 mg PO HS [facility] Last Admin: 07/25/17 21:58 Dose: 10 mg Apixaban (Eliquis) 2.5 mg PO BID [facility] PRN Reason: Protocol Last Admin: 07/25/17 11:08 Dose: 2.5 mg Bupropion HCl (Wellbutrin Xl) 150 mg PO DAILY [facility] Last Admin: 07/25/17 11:09 Dose: 150 mg Cadexomer Iodine (Iodosorb) 0 gm TOP DAILY [facility] Last Admin: 07/24/17 12:51 Dose: Not Given Famotidine (Pepcid) 20 mg PO DAILY [facility] Last Admin: 07/25/17 11:09 Dose: 20 mg Vancomycin HCl 1.5 gm/ Sodium (Chloride) 500 mls @ 167 mls/hr IVPB Q12H [facility] PRN Reason: Protocol Last Admin: 07/26/17 00:10 Dose: 167 mls/hr Mesalamine (Pentasa) 1,000 mg PO QID [facility] Last Admin: 07/25/17 21:58 Dose: 1,000 mg Ondansetron HCl (Zofran Inj) 4 mg IVP Q4H PRN PRN Reason: Nausea/Vomiting Last Admin: 07/23/17 20:43 Dose: 4 mg Paroxetine HCl (Paxil) 10 mg PO DAILY [facility] Last Admin: 07/25/17 11:09 Dose: 10 mg Pregabalin (Lyrica) 50 mg PO BID [facility] Last Admin: 07/25/17 17:47 Dose: 50 mg Quetiapine Fumarate (Seroquel Xr) 200 mg PO HS [facility] PRN Reason: Protocol Last Admin: 07/25/17 21:58 Dose: 200 mg Tamsulosin HCl (Flomax) 0.4 mg PO DAILY [facility] Last Admin: 07/25/17 11:09 Dose: 0.4 mg - Labs Labs: 07/25/17 11:55 07/25/17 11:55 PT 14.9 SECONDS (9.4-12.5) H 07/22/17 21:53 INR 1.30 (0.93-1.08) H 07/22/17 21:53 APTT 30.2 Seconds (25.1-36.5) 07/22/17 21:53 - Constitutional Appears: Chronically Ill - Head Exam Head Exam: NORMAL INSPECTION - ENT Exam ENT Exam: Mucous Membranes Moist - Neck Exam Neck Exam: absent: Meningismus - Respiratory Exam Respiratory Exam: Decreased Breath Sounds - Cardiovascular Exam Cardiovascular Exam: +S1, +S2 - GI/Abdominal Exam GI & Abdominal Exam: Soft. absent: Tenderness - Extremities Exam Additional comments: left foot with dressings in place Assessment and Plan - Assessment and Plan (Free Text) Plan: Assessment left 2nd toe probable osteomyelitis with MRSA history of sepsis due to MSSA bacteremia, consider port infection with associated infected right IJ thrombophlebitis S/P port removalhistory of severe sepsis due to methicillin-resistant coagulase negative staph bacteremia and right ankle cellulitis with MSSA Crohn's disease depression Susac syndrome (autoimmune disorder) psoriasis S/P right chest wall port-a-cath placement Plan continue Vancomycin for 4-6 weeks with every 3 days ESR, CRP, CBC, CMP, Vanco trough; Vanco trough is 15 which is within 15-20 range - will need to stop Vancomycin if GFR falls below 60 since it may be Vancomycin causing the renal failure if that happens (therefore need every 3 days of comprehensive metabolic panel) reviewed MRI of foot showing probable osteomyelitis
[2017-07-26] MEDS: QUEtiapine 200 mg XR Tab PO SCH (21:33)
[2017-07-27 06:35] LABS: BASO # 0.01 K/mm3 (0.0-2.0); BASO % 0.2 % (0.0-3.0); EOS # 0.2 (0.0-0.7); EOS % 3.8 % (1.5-5.0); GRAN # 2.67 (1.4-6.5); GRAN % 60.3 % (50.0-68.0); HEMOGLOBIN 11.4 g/dL (14.0-18.0); LYMPH # 1.1 (1.2-3.4); LYMPH % 25.5 % (22.0-35.0); MEAN CELL VOLUME 88.2 fl (80.0-105.0); MEAN PLATELET VOLUME 9.6 fl (7.0-11.0); MONO # 0.5 (0.1-0.6); MONO % 10.2 % (1.0-6.0); RBC 3.8 10^6/uL (3.5-6.1); RED CELL DISTRIBUTION WIDTH 13.9 % (11.5-14.5); WHITE BLOOD COUNT 4.4 10^3/ul (4.5-11.0)
[2017-07-27 06:47] LABS: BLOOD UREA NITROGEN 4 mg/dL (7-21); CALCIUM 9.1 mg/dL (8.4-10.5); GFR AFRICAN-AMERICAN > 60; GFR NON-AFRICAN AMERICAN > 60
[2017-07-27 08:02] VITALS: RESP 20
--- NOTE | 2017-07-27 08:30 | CP.PCM.CON ---
History of Present Illness - History of Present Illness History of Present Illness: Heme-Onc Consult note for Dr. 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 Patient admitted for soft tissue swelling to rule out cellulitis vs osteomyelitis. [facility] was consulted for history of DVT and hypogammaglobulinemia. Patient reports he was found to have a DVT in his R IJ back in February but is unsure of who prescribed him Eliquis and does not remember how long he has been on it. As per the ptaient he had his right chest port removed 3 months ago and had a LUE port placed which has been functioning well. He denies any swelling in b/l UE. Patient receives IV gammaglobulin every 21-28 days and is compliant and follows up with Dr. López. Patient is currently receiving IV Vancomycin for probable osteomyleitis noted on LLE MRI. On complete ROS patient denied acute complaints of fever, chills, headache, dizziness, chest pain, palpitations, SOB, cough, abd pain, nausea, vomiting, bowel/bladder complaints, pain in his legs b/l. He is eating well and has been OOB to chair. 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) Other/Comment: slight speech impediment - RENAL Hx Chronic Kidney Disease: No - ENDOCRINE/METABOLIC Hx Endocrine Disorders: No - HEMATOLOGICAL/ONCOLOGICAL Hx Blood Transfusions: No Hx Blood Transfusion Reaction: No - INTEGUMENTARY Hx Dermatological Problems: Yes Hx Psoriasis: Yes - MUSCULOSKELETAL/RHEUMATOLOGICAL Hx Musculoskeletal Disorders: Yes - GASTROINTESTINAL Hx Gastrointestinal Disorders: Yes Hx Colostomy: Yes Hx Crohn's Disease: Yes (dx at 15 yrs old) - GENITOURINARY/GYNECOLOGICAL Hx Genitourinary Disorders: No - PSYCHIATRIC Hx Emotional Abuse: No Hx Physical Abuse: No Hx Substance Use: No - SURGICAL HISTORY Other/Comment: colostomy bag. abdominal sx - ANESTHESIA Hx Anesthesia Reactions: No Hx Malignant Hyperthermia: No Meds Allergies/Adverse Reactions: Allergies Allergy/AdvReac Type Severity Reaction Status Date / Time homeopathic substance (from Allergy Intermediate RASH Uncoded 11/17/16 15:26 Rosario) [facility] SOAP Allergy RASH Uncoded 11/17/16 15:26 - Medications Medications: Current Medications Acetaminophen (Tylenol 325mg Tab) 650 mg PO Q6H PRN PRN Reason: Fever >100.4 F Amitriptyline HCl (Elavil) 10 mg PO HS [facility] Last Admin: 07/26/17 21:32 Dose: 10 mg Apixaban (Eliquis) 2.5 mg PO BID [facility] PRN Reason: Protocol Last Admin: 07/25/17 11:08 Dose: 2.5 mg Bupropion HCl (Wellbutrin Xl) 150 mg PO DAILY [facility] Last Admin: 07/26/17 09:34 Dose: 150 mg Cadexomer Iodine (Iodosorb) 0 gm TOP DAILY [facility] Last Admin: 07/24/17 12:51 Dose: Not Given Famotidine (Pepcid) 20 mg PO DAILY [facility] Last Admin: 07/26/17 09:33 Dose: 20 mg Vancomycin HCl 1.5 gm/ Sodium (Chloride) 500 mls @ 167 mls/hr IVPB Q12H [facility] PRN Reason: Protocol Last Admin: 07/26/17 21:33 Dose: 167 mls/hr Mesalamine (Pentasa) 1,000 mg PO QID [facility] Last Admin: 07/26/17 21:33 Dose: 1,000 mg Ondansetron HCl (Zofran Inj) 4 mg IVP Q4H PRN PRN Reason: Nausea/Vomiting Last Admin: 07/23/17 20:43 Dose: 4 mg Paroxetine HCl (Paxil) 10 mg PO DAILY [facility] Last Admin: 07/26/17 09:33 Dose: 10 mg Pregabalin (Lyrica) 50 mg PO BID [facility] Last Admin: 07/26/17 17:39 Dose: 50 mg Quetiapine Fumarate (Seroquel Xr) 200 mg PO HS [facility] PRN Reason: Protocol Last Admin: 07/26/17 21:33 Dose: 200 mg Tamsulosin HCl (Flomax) 0.4 mg PO DAILY [facility] Last Admin: 07/26/17 09:33 Dose: 0.4 mg Physical Exam - Constitutional Appears: Non-toxic, No Acute Distress - Head Exam Head Exam: ATRAUMATIC, NORMAL INSPECTION, NORMOCEPHALIC - Eye Exam Eye Exam: EOMI, Normal appearance, PERRL. absent: Conjunctival injection, Scleral icterus Pupil Exam: NORMAL ACCOMODATION - ENT Exam ENT Exam: Mucous Membranes Moist - Neck Exam Neck exam: Positive for: Full Rom Additional comments: decreased hearing b/l - Respiratory Exam Respiratory Exam: Clear to Auscultation Bilateral, NORMAL BREATHING PATTERN. absent: Accessory Muscle Use, Rales, Rhonchi, Wheezes, Respiratory Distress - Cardiovascular Exam Cardiovascular Exam: +S1, +S2 - GI/Abdominal Exam GI & Abdominal Exam: Normal Bowel Sounds, Soft. absent: Tenderness - Extremities Exam Extremities exam: Negative for: pedal edema Additional comments: LLE dressings noted - Neurological Exam Neurological exam: Alert, CN II-XII Intact, Oriented x3 - Psychiatric Exam Psychiatric exam: Normal Affect, Normal Mood - Skin Skin Exam: Dry, Intact Results - Vital Signs Recent Vital Signs: Last Vital Signs Temp 98.2 F 07/27/17 06:00 Pulse 65 07/27/17 06:00 Resp 20 07/27/17 06:00 BP 145/89 07/27/17 06:00 Pulse Ox 96 07/27/17 06:00 - Labs Result Diagrams: 07/27/17 06:00 07/27/17 06:00 Labs: Laboratory Results - last 24 hr 07/26/17 07/26/17 07/27/17 09:30 09:30 06:00 WBC 2.9 L* 4.4 L D RBC 3.67 3.80 Hgb 11.3 L 11.4 L Hct 32.4 L 33.5 L MCV 88.3 88.2 MCH 30.8 30.0 MCHC 34.9 34.0 RDW 14.0 13.9 Plt Count 133 160 MPV 9.7 9.6 Gran % 58.1 60.3 Lymph % (Auto) 28.7 25.5 [place] % (Auto) 8.0 H 10.2 H Eos % (Auto) 4.9 3.8 Baso % (Auto) 0.3 0.2 Gran # 1.66 2.67 Lymph # (Auto) 0.8 L 1.1 L [place] # (Auto) 0.2 0.5 Eos # (Auto) 0.1 0.2 Baso # (Auto) 0.01 0.01 Sodium 143 Potassium 3.5 L Chloride 109 H Carbon Dioxide 21 Anion Gap 17 BUN 5 L Creatinine 0.8 Est GFR ( Amer) > 60 Est GFR (Non-Af Amer) > 60 Random Glucose 162 H Calcium 8.8 Total Bilirubin 0.5 AST 18 ALT 27 Alkaline Phosphatase 58 Total Protein 6.6 Albumin 3.6 Globulin 3.0 Albumin/Globulin Ratio 1.2 07/27/17 06:00 WBC RBC Hgb Hct MCV MCH MCHC RDW Plt Count MPV Gran % Lymph % (Auto) [place] % (Auto) Eos % (Auto) Baso % (Auto) Gran # Lymph # (Auto) [place] # (Auto) Eos # (Auto) Baso # (Auto) Sodium 146 Potassium 4.0 Chloride 106 Carbon Dioxide 28 Anion Gap 16 BUN 4 L Creatinine 0.8 Est GFR ( Amer) > 60 Est GFR (Non-Af Amer) > 60 Random Glucose 93 Calcium 9.1 Total Bilirubin AST ALT Alkaline Phosphatase Total Protein Albumin Globulin Albumin/Globulin Ratio Assessment & Plan - Assessment and Plan (Free Text) Assessment: 51yo male PMHx Crohn's disease s/p colostomy, Susac's syndrome, psoriasis, cerebral vasculitis with bilateral hearing loss, 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 Patient admitted for soft tissue swelling to rule out cellulitis vs osteomyelitis. Hemeonc was consulted for history of DVT and hypogammaglobulinemia. Patient follows up with Dr. López outpatient to receive IV gammaglobulin. Patient to have b/l UE venous duplex to r/o DVT and to determine continued need for eliquis. Heme-onc will continue to follow patient Discussed with Dr. Maribel Nguyen PGY2
[2017-07-27] MEDS: Mesalamine ER Cap 500 MG PO SCH ×3 (10:09→18:03)
[2017-07-27] MEDS: buPROPion 150 mg/24 Hours XL Tab PO SCH (10:10)
[2017-07-27] MEDS: CADEXOMER IODINE 0.9% GEL 10G TOP SCH (10:11)
[2017-07-27] MEDS: Vancomycin 1.5 GM in Sodium Chloride 0.9% 500 ML IVPB SCH (10:17)
--- NOTE | 2017-07-27 13:22 | CP.PCM.CON ---
<Marily Chambers - Last Filed: 07/27/17 13:26> History of Present Illness - History of Present Illness History of Present Illness: Seen and examined at the bedside this afternoon, chart review. Request for GI consult is for Crohn's disease. HPI: This is a 51-year-old male with a past medical history of Crohn's disease status post colostomy, Soucek syndrome, cerebral vasculitis with hearing loss came to the emergency room with complaints of swelling to the left second toe. Patient also had fever above 100.5 on arrival to the emergency room. his left foot wound culture is positive MRSA. Patient had recent MRI of lower extremity which shows marrow edema on the second distal phalanx suspected for osteomyelitis. This patient is known to our service. He currently denies any symptoms of nausea, vomiting, or abdominal pain. His colostomy stool output is brown and pasty he denies any diarrhea or frequent emptying of his colostomy. Reports good appetite, no complaints of any weight loss or any overt GI bleed. He has a history of hypo-globule anemia and reports his last infusion was about 3 weeks ago. Patient endorses that he has been taking his Pentasa regularly. PAST MEDICAL HISTORY: Crohn's disease, status post colostomy, Susac syndrome, cerebral vasculitis, hypogammaglobulinemia and psoriasis. The patient is hard of hearing. DVT on Eliquis PAST SURGICAL HISTORY: Colectomy. Colonoscopy 02/03/2016 with biopsy. ALLERGIES: THE PATIENT IS ALLERGIC TO CHERRIES; HE GETS A RASH. SOCIAL HISTORY: The patient was a former smoker, Denies any ETOH or substance abuse. MEDICATIONS: reviewed as per [facility] FAMILY HISTORY: mother: Breast cancer, father: heart disease, DM,aneurysm REVIEW OF SYSTEMS: Systems were reviewed with positive findings. See HPI. 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) Other/Comment: slight speech impediment - RENAL Hx Chronic Kidney Disease: No - ENDOCRINE/METABOLIC Hx Endocrine Disorders: No - HEMATOLOGICAL/ONCOLOGICAL Hx Blood Transfusions: No Hx Blood Transfusion Reaction: No - INTEGUMENTARY Hx Dermatological Problems: Yes Hx Psoriasis: Yes - MUSCULOSKELETAL/RHEUMATOLOGICAL Hx Musculoskeletal Disorders: Yes - GASTROINTESTINAL Hx Gastrointestinal Disorders: Yes Hx Colostomy: Yes Hx Crohn's Disease: Yes (dx at 15 yrs old) - GENITOURINARY/GYNECOLOGICAL Hx Genitourinary Disorders: No - PSYCHIATRIC Hx Emotional Abuse: No Hx Physical Abuse: No Hx Substance Use: No - SURGICAL HISTORY Other/Comment: colostomy bag. abdominal sx - ANESTHESIA Hx Anesthesia Reactions: No Hx Malignant Hyperthermia: No Meds Allergies/Adverse Reactions: Allergies Allergy/AdvReac Type Severity Reaction Status Date / Time homeopathic substance (from Allergy Intermediate RASH Uncoded 11/17/16 15:26 Rosario) [facility] Allergy RASH Uncoded 11/17/16 15:26 - Medications Medications: Current Medications Acetaminophen (Tylenol 325mg Tab) 650 mg PO Q6H PRN PRN Reason: Fever >100.4 F Apixaban (Eliquis) 2.5 mg PO BID COUNTS [facility]CLUDE 234 BEDS AT THE [facility] PRN Reason: Protocol Bupropion HCl (Wellbutrin Xl) 150 mg PO DAILY COUNTS INCLUDE 234 BEDS AT THE [facility] Last Admin: 07/27/17 10:10 Dose: 150 mg Cadexomer Iodine (Iodosorb) 0 gm TOP DAILY COUNTS INCLUDE 234 BEDS AT THE [facility] Last Admin: 07/27/17 10:11 Dose: 1 gm Famotidine (Pepcid) 20 mg PO DAILY COUNTS INCLUDE 234 BEDS AT THE [facility] Last Admin: 07/27/17 10:16 Dose: 20 mg Vancomycin HCl 1.5 gm/ Sodium (Chloride) 500 mls @ 167 mls/hr IVPB Q12H [facility] PRN Reason: Protocol Last Admin: 07/27/17 10:17 Dose: 167 mls/hr Mesalamine (Pentasa) 1,000 mg PO QID COUNTS INCLUDE 234 BEDS AT THE [facility] Last Admin: 07/27/17 10:09 Dose: 1,000 mg Ondansetron HCl (Zofran Inj) 4 mg IVP Q4H PRN PRN Reason: Nausea/Vomiting Last Admin: 07/23/17 20:43 Dose: 4 mg Pregabalin (Lyrica) 50 mg PO BID COUNTS INCLUDE 234 BEDS AT THE [facility] Last Admin: 07/27/17 10:10 Dose: 50 mg Tamsulosin HCl (Flomax) 0.4 mg PO DAILY COUNTS INCLUDE 234 BEDS AT THE [facility] Last Admin: 07/27/17 10:10 Dose: 0.4 mg Zaleplon (Sonata) 5 mg PO HS PRN PRN Reason: Insomnia Physical Exam - Constitutional Appears: No Acute Distress - Head Exam Head Exam: NORMOCEPHALIC - Eye Exam Eye Exam: Normal appearance. absent: Scleral icterus - ENT Exam ENT Exam: Mucous Membranes Moist - Neck Exam Neck exam: Positive for: Normal Inspection - Respiratory Exam Respiratory Exam: NORMAL BREATHING PATTERN. absent: Respiratory Distress - Cardiovascular Exam Cardiovascular Exam: +S1, +S2 - GI/Abdominal Exam GI & Abdominal Exam: Normal Bowel Sounds, Soft. absent: Guarding, Rebound, Tenderness Additional comments: colostomy present with pasty stool no blood noted - Extremities Exam Extremities exam: Negative for: calf tenderness Additional comments: left foot with dressing - Neurological Exam Neurological exam: Alert, Oriented x3 - Skin Skin Exam: Dry, Warm Results - Vital Signs Recent Vital Signs: Last Vital Signs Temp 98.2 F 07/27/17 06:00 Pulse 65 07/27/17 06:00 Resp 20 07/27/17 06:00 BP 145/89 07/27/17 06:00 Pulse Ox 96 07/27/17 06:00 - Labs Result Diagrams: 07/27/17 06:00 07/27/17 06:00 Labs: Laboratory Results - last 24 hr 07/27/17 07/27/17 06:00 06:00 WBC 4.4 L D RBC 3.80 Hgb 11.4 L Hct 33.5 L MCV 88.2 MCH 30.0 MCHC 34.0 RDW 13.9 Plt Count 160 MPV 9.6 Gran % 60.3 Lymph % (Auto) 25.5 [place] % (Auto) 10.2 H Eos % (Auto) 3.8 Baso % (Auto) 0.2 Gran # 2.67 Lymph # (Auto) 1.1 L [place] # (Auto) 0.5 Eos # (Auto) 0.2 Baso # (Auto) 0.01 Sodium 146 Potassium 4.0 Chloride 106 Carbon Dioxide 28 Anion Gap 16 BUN 4 L Creatinine 0.8 Est GFR ( Amer) > 60 Est GFR (Non-Af Amer) > 60 Random Glucose 93 Calcium 9.1 Assessment & Plan - Assessment and Plan (Free Text) Assessment: Assessment: Left toe infection with underlying osteomyelitis Crohn's disease Hypogammaglobulinemia History of DVT on Eliquis Susac Syndrome PLAN: Continue as tolerated Continue Pentasa Monitor LFTs Continue GI prophylaxis on Eliquis Monitor RAMÍREZ in cc with patient and reviewing chart patient prefer IV antibiotic treatment versus surgery. Oncology follow-up Thank you for this consult and for allowing us to participate in your patient's care, further recommendations based upon clinical course. Seen and discussed with Dr. Okeefe. <Eric Okeefe V - Last Filed: 07/29/17 01:23> Results - Vital Signs Recent Vital Signs: Last Vital Signs Temp 98.9 F 07/27/17 18:00 Pulse 79 07/27/17 18:00 Resp 20 07/27/17 18:00 BP 132/74 07/27/17 18:00 Pulse Ox 98 07/27/17 18:00 - Labs Result Diagrams: 07/27/17 06:00 07/27/17 06:00 Attending/Attestation - Attestation I have personally seen and examined this patient.: Yes I have fully participated in the care of the patient.: Yes I have reviewed all pertinent clinical information: Yes Notes (Text): This is a delayed addendum to GI consult report dictated by Marily Chambers APN.The patient was seen and examined earlier. Medical records, lab studies, imagings were reviewed. Last 24 hours events reviewed. Agreed with the above treatment plan as outlined in Marily Chambers APN's notes the with the addition of the following I did discuss with Dr. López at length regarding this patient. 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
--- NOTE | 2017-07-27 13:27 | CP.PCM.PN ---
Subjective - Date & Time of Evaluation Date of Evaluation: 07/27/17 Time of Evaluation: 13:23 - Subjective Subjective: Podiatry Progress Note for Dr. Quijano 51M seen at bedside for left second digit distal toe ulcer with underlying OM of distal phalanx. Patient is AAO x 3 and NAD, resting comfortably in bed at time of visit. Denies any acute overnight events. Denies any new pedal complaints. Denies any pain. Denies any recent N/V/F/C/CP/SOB/D/posterior calf pain when squeezed. Patient is currently undergoing 4-6 weeks IV abx Objective - Vital Signs/Intake and Output Vital Signs (last 24 hours): Temp Pulse Resp BP Pulse Ox 98.2 F 65 20 145/89 96 07/27/17 06:00 07/27/17 06:00 07/27/17 06:00 07/27/17 06:00 07/27/17 06:00 Intake and Output: 07/27/17 07/27/17 06:59 18:59 Intake Total 1000 120 Balance 1000 120 - Medications Medications: Current Medications Acetaminophen (Tylenol 325mg Tab) 650 mg PO Q6H PRN PRN Reason: Fever >100.4 F Apixaban (Eliquis) 2.5 mg PO BID [facility] PRN Reason: Protocol Bupropion HCl (Wellbutrin Xl) 150 mg PO DAILY [facility] Last Admin: 07/27/17 10:10 Dose: 150 mg Cadexomer Iodine (Iodosorb) 0 gm TOP DAILY [facility] Last Admin: 07/27/17 10:11 Dose: 1 gm Famotidine (Pepcid) 20 mg PO DAILY [facility] Last Admin: 07/27/17 10:16 Dose: 20 mg Vancomycin HCl 1.5 gm/ Sodium (Chloride) 500 mls @ 167 mls/hr IVPB Q12H [facility] PRN Reason: Protocol Last Admin: 07/27/17 10:17 Dose: 167 mls/hr Mesalamine (Pentasa) 1,000 mg PO QID [facility] Last Admin: 07/27/17 13:08 Dose: 1,000 mg Ondansetron HCl (Zofran Inj) 4 mg IVP Q4H PRN PRN Reason: Nausea/Vomiting Last Admin: 07/23/17 20:43 Dose: 4 mg Pregabalin (Lyrica) 50 mg PO BID [facility] Last Admin: 07/27/17 10:10 Dose: 50 mg Tamsulosin HCl (Flomax) 0.4 mg PO DAILY [facility] Last Admin: 07/27/17 10:10 Dose: 0.4 mg Zaleplon (Sonata) 5 mg PO HS PRN PRN Reason: Insomnia - Labs Labs: 07/27/17 06:00 07/27/17 06:00 PT 14.9 SECONDS (9.4-12.5) H 07/22/17 21:53 INR 1.30 (0.93-1.08) H 07/22/17 21:53 APTT 30.2 Seconds (25.1-36.5) 07/22/17 21:53 - Constitutional Appears: Well, Non-toxic, No Acute Distress - Head Exam Head Exam: ATRAUMATIC, NORMOCEPHALIC - Extremities Exam Additional comments: LLE focused exam: Vasc: DP pulse weakly palpable 1/4, PT pulses non-palpable. CFT > 3 seconds to all digits. Skin temperature warm to warm from proximal to distal. Moderate edema noted to left second digit Neuro: Epicritic and protective sensation grossly diminished b/l Derm: Left 2nd digit with minimal erythema to periwound area. Scant amount of serous drainage noted to the distal tip with open ulceration noted, no malodor, no probe to bone, tracking, tunneling or undermining noted. Hypertrophic tissue noted to distal digital tip surrounding wound site Ortho: Tenderness to palpation of left 2nd digit. No other gross deformities noted - Neurological Exam Neurological Exam: Alert, Awake, Oriented x3 - Psychiatric Exam Psychiatric exam: Normal Affect, Normal Mood Assessment and Plan - Assessment and Plan (Free Text) Assessment: 51M seen at bedside for left second digit distal toe ulcer with underlying OM of distal phalanx Plan: Patient seen and evaluated Plan discussed with attending Dr. Quijano Afebrile, WBC 4.4 Continue IV abx per ID 07/23 left foot cx: MRSA 07/22 Foot xray: Normal left foot radiographs 07/23 LE arterial duplex: Relatively normal ROWDY/PVR at rest 07/23 LE venous duplex: No evidence of DVT 07/23 LLE MRI: Minimal marrow edema in the distal second phalanx suspicious for OM Nails 1-5 debrided down to appropriate level with nail nippers without incident Hypertrophic tissue surrounding ulcer site excisionally debrided down to level of epidermis with minimal bleeding noted Wound dressed with DSD, surgical shoe Patient to received 4-6 weeks IV abx for OM of second digit Podiatry will continue to follow while patient in house
--- NOTE | 2017-07-27 15:46 | CP.PCM.PN ---
Subjective - Date & Time of Evaluation Date of Evaluation: 07/27/17 Time of Evaluation: 10:10 - Subjective Subjective: Not complaining of pain in the left foot currently, no fevers, does not want to have toe amputated. Objective - Vital Signs/Intake and Output Vital Signs (last 24 hours): Temp Pulse Resp BP Pulse Ox 98.1 F 68 19 159/78 H 100 07/26/17 18:00 07/27/17 06:00 07/26/17 18:00 07/26/17 18:00 07/26/17 18:00 Intake and Output: 07/27/17 07/27/17 06:59 18:59 Intake Total 1000 120 Balance 1000 120 - Medications Medications: Current Medications Acetaminophen (Tylenol 325mg Tab) 650 mg PO Q6H PRN PRN Reason: Fever >100.4 F Amitriptyline HCl (Elavil) 10 mg PO HS [facility] Last Admin: 07/26/17 21:32 Dose: 10 mg Apixaban (Eliquis) 2.5 mg PO BID [facility] PRN Reason: Protocol Last Admin: 07/25/17 11:08 Dose: 2.5 mg Bupropion HCl (Wellbutrin Xl) 150 mg PO DAILY [facility] Last Admin: 07/26/17 09:34 Dose: 150 mg Cadexomer Iodine (Iodosorb) 0 gm TOP DAILY [facility] Last Admin: 07/24/17 12:51 Dose: Not Given Famotidine (Pepcid) 20 mg PO DAILY [facility] Last Admin: 07/26/17 09:33 Dose: 20 mg Vancomycin HCl 1.5 gm/ Sodium (Chloride) 500 mls @ 167 mls/hr IVPB Q12H [facility] PRN Reason: Protocol Last Admin: 07/26/17 21:33 Dose: 167 mls/hr Mesalamine (Pentasa) 1,000 mg PO QID [facility] Last Admin: 07/26/17 21:33 Dose: 1,000 mg Ondansetron HCl (Zofran Inj) 4 mg IVP Q4H PRN PRN Reason: Nausea/Vomiting Last Admin: 07/23/17 20:43 Dose: 4 mg Paroxetine HCl (Paxil) 10 mg PO DAILY [facility] Last Admin: 07/26/17 09:33 Dose: 10 mg Pregabalin (Lyrica) 50 mg PO BID [facility] Last Admin: 07/26/17 17:39 Dose: 50 mg Quetiapine Fumarate (Seroquel Xr) 200 mg PO HS [facility] PRN Reason: Protocol Last Admin: 07/26/17 21:33 Dose: 200 mg Tamsulosin HCl (Flomax) 0.4 mg PO DAILY [facility] Last Admin: 07/26/17 09:33 Dose: 0.4 mg - Labs Labs: 07/27/17 06:00 07/27/17 06:00 PT 14.9 SECONDS (9.4-12.5) H 07/22/17 21:53 INR 1.30 (0.93-1.08) H 07/22/17 21:53 APTT 30.2 Seconds (25.1-36.5) 07/22/17 21:53 - Constitutional Appears: Non-toxic, Chronically Ill - Head Exam Head Exam: NORMAL INSPECTION - Respiratory Exam Respiratory Exam: Decreased Breath Sounds - Cardiovascular Exam Cardiovascular Exam: +S1, +S2 - GI/Abdominal Exam GI & Abdominal Exam: Soft. absent: Tenderness - Extremities Exam Additional comments: left foot with dressings in place Assessment and Plan - Assessment and Plan (Free Text) Plan: Assessment left 2nd toe probable osteomyelitis with MRSA history of sepsis due to MSSA bacteremia, consider port infection with associated infected right IJ thrombophlebitis S/P port removalhistory of severe sepsis due to methicillin-resistant coagulase negative staph bacteremia and right ankle cellulitis with MSSA Crohn's disease depression Susac syndrome (autoimmune disorder) psoriasis S/P right chest wall port-a-cath placement Plan continue Vancomycin for 4-6 weeks with every 3 days ESR, CRP, CBC, CMP, Vanco trough; Vanco trough is 15 which is within 15-20 range - will need to stop Vancomycin if GFR falls below 60 since it may be Vancomycin causing the renal failure if that happens (therefore need every 3 days of comprehensive metabolic panel) - explained this to patient and he understands - also discussed this with Dr. Hope reviewed MRI of foot showing probable osteomyelitis
--- NOTE | 2017-07-27 15:58 | CP.PCM.DIS ---
<Denys Saeed - Last Filed: 07/27/17 16:21> Provider - Provider Date of Admission: 07/22/17 23:09 Attending physician: Marcy Hope MD Time Spent in preparation of Discharge (in minutes): 45 Hospital Course - Lab Results Lab Results: Micro Results 07/23/17 08:00 Foot - Left Gram Stain - Final 07/23/17 08:00 Foot - Left Wound Culture - Final Methicillin Resistant S Aureus 07/23/17 00:44 Other: Please Indicate Gram Stain - Final 07/23/17 00:44 Other: Please Indicate Wound Culture - Final Methicillin Resistant S Aureus Most Recent Lab Values WBC 4.4 10^3/ul (4.5-11.0) L D 07/27/17 06:00 RBC 3.80 10^6/uL (3.5-6.1) 07/27/17 06:00 Hgb 11.4 g/dL (14.0-18.0) L 07/27/17 06:00 Hct 33.5 % (42.0-52.0) L 07/27/17 06:00 MCV 88.2 fl (80.0-105.0) 07/27/17 06:00 MCH 30.0 pg (25.0-35.0) 07/27/17 06:00 MCHC 34.0 g/dl (31.0-37.0) 07/27/17 06:00 RDW 13.9 % (11.5-14.5) 07/27/17 06:00 Plt Count 160 10^3/uL (120.0-450.0) 07/27/17 06:00 MPV 9.6 fl (7.0-11.0) 07/27/17 06:00 Gran % 60.3 % (50.0-68.0) 07/27/17 06:00 Lymph % (Auto) 25.5 % (22.0-35.0) 07/27/17 06:00 [place] % (Auto) 10.2 % (1.0-6.0) H 07/27/17 06:00 Eos % (Auto) 3.8 % (1.5-5.0) 07/27/17 06:00 Baso % (Auto) 0.2 % (0.0-3.0) 07/27/17 06:00 Gran # 2.67 (1.4-6.5) 07/27/17 06:00 Lymph # (Auto) 1.1 (1.2-3.4) L 07/27/17 06:00 [place] # (Auto) 0.5 (0.1-0.6) 07/27/17 06:00 Eos # (Auto) 0.2 (0.0-0.7) 07/27/17 06:00 Baso # (Auto) 0.01 K/mm3 (0.0-2.0) 07/27/17 06:00 ESR 55 mm/hr (0.00-15.0) H 07/23/17 06:30 PT 14.9 SECONDS (9.4-12.5) H 07/22/17 21:53 INR 1.30 (0.93-1.08) H 07/22/17 21:53 APTT 30.2 Seconds (25.1-36.5) 07/22/17 21:53 pO2 55 mm/Hg (30-55) 07/22/17 21:53 VBG pH 7.43 (7.32-7.43) 07/22/17 21:53 VBG pCO2 39.0 (40-60) L 07/22/17 21:53 VBG HCO3 25.9 mmol/l (21-28) 07/22/17 21:53 VBG Total CO2 27.1 mmol.L (22-28) 07/22/17 21:53 VBG O2 Sat (Calc) 94.2 % (40-65) H 07/22/17 21:53 VBG Base Excess 1.5 mmol/L (0.0-2.0) 07/22/17 21:53 VBG Potassium 3.7 mmol/L (3.6-5.2) 07/22/17 21:53 Sodium 136.0 mmol/L (132-148) 07/22/17 21:53 Chloride 103.0 mmol/L (98-107) 07/22/17 21:53 Glucose 119 mg/dl (75-110) H 07/22/17 21:53 Lactate 1.0 mmol/L (0.7-2.1) 07/22/17 21:53 FiO2 21.0 % 07/22/17 21:53 Sodium 146 mmol/L (132-148) 07/27/17 06:00 Potassium 4.0 mmol/L (3.6-5.0) 07/27/17 06:00 Chloride 106 mmol/L (98-107) 07/27/17 06:00 Carbon Dioxide 28 mmol/L (21-33) 07/27/17 06:00 Anion Gap 16 (10-20) 07/27/17 06:00 BUN 4 mg/dL (7-21) L 07/27/17 06:00 Creatinine 0.8 mg/dl (0.8-1.5) 07/27/17 06:00 Est GFR ( Amer) > 60 07/27/17 06:00 Est GFR (Non-Af Amer) > 60 07/27/17 06:00 Random Glucose 93 mg/dL (70-110) 07/27/17 06:00 Hemoglobin A1c 5.6 % (4.2-6.5) 07/23/17 00:15 Calcium 9.1 mg/dL (8.4-10.5) 07/27/17 06:00 Phosphorus 2.2 mg/dL (2.5-4.5) L 07/23/17 06:30 Magnesium 2.5 mg/dL (1.7-2.2) H 07/23/17 06:30 Total Bilirubin 0.5 mg/dL (0.2-1.3) 07/26/17 09:30 AST 18 U/L (17-59) 07/26/17 09:30 ALT 27 U/L (7-56) 07/26/17 09:30 Alkaline Phosphatase 58 U/L (38-126) 07/26/17 09:30 Lactate Dehydrogenase 455 U/L (333-699) 07/22/17 21:53 Total Creatine Kinase 227 U/L (35-230) 07/22/17 21:53 Troponin I 0.01 ng/mL D 07/22/17 21:53 Total Protein 6.6 g/dL (5.8-8.3) 07/26/17 09:30 Albumin 3.6 g/dL (3.0-4.8) 07/26/17 09:30 Globulin 3.0 gm/dL 07/26/17 09:30 Albumin/Globulin Ratio 1.2 (1.1-1.8) 07/26/17 09:30 25-OH Vitamin D Total 50.6 NG/ML (30.0-100.0) 07/23/17 06:30 Procalcitonin 0.39 NG/ML (0.19-0.49) 07/23/17 00:15 Venous Blood Potassium 3.7 mmol/L (3.6-5.2) 07/22/17 21:53 Vancomycin Trough 15.0 ug/mL (5.0-10.0) H 07/25/17 22:40 - Hospital Course Hospital Course: History and Physical - Hospitalist Service HPI: Patient is a 51 year old male with past medical history of crohn's disease s/p colostomy, Susac syndrome, psoriasis, cerebral vasculitis with bilateral hearing loss, depression presents to the ED for 2nd left toe swelling that started 2 days ago. Patient denies any trauma, this has never happened to him before. Swelling is associated with intermittent throbbing pain. Rates the pain a 5/10 on pain scale. Also reports having non-bilious, non-bloody vomiting for past 2 days. States that he has not vomited since he has been in the ED. Patient denies fevers/chills, headaches, dizziness, cp, palpitations, sob, abdominal pain, urinary symptoms, numbness/tingling. Patient had fever of 100.5 on arrival to the ED. ED course: Vancomycin x 1 dose, Zosyn x 1 dose, Zofran 4mg, Tylenol 975mg, NS 500cc bolus PMD: Dr Aburto Allergies: Homeopathic substance (from [facility]), [place] spring soap -> allergic pneumonia Medications: Monthly IV gammaglobulin, Pentasa, Seroquel 200mg PO HS, Flomax 0.4mg PO daily, Kdur 20meq Qotherday, Lyrica 50mg PO BID, Pentasa 2 cap PO QID, Amitriptyline 10mg PO HS, Buproprion 150mg PO daily, Eliquis 2.5mg PO BID, Ergocalciferol 1 tab PO Q7D, Pepcid 20mg PO daily, Paxil 10mg PO daily Medical History: Crohn's disease, Susac syndrome, psoriasis, depression, cerebral angiitis, bilateral hearing loss, hypogammaglobulinemia Surgical History: Colostomy x 2, Port in left upper arm Social History: Former smoker, denies alcohol, tobacco use Family History: Mother - breast cancer; Father - aneurysm, DM, heart disease ( ) Past Hospitalizations: 02/2017 for gram positive bacteremia 2/2 infected port Hospital Course: Patient was admitted and seen by Infectious Disease, Psychiatry, Podiatry while admitted. He was found to have probable osteomyelitis on MRI and was given the option of surgery or IV antibiotics for 4 to 6 weeks duration. Patient was started on Vancomycin while admitted. Patient discussed the options with family and decided to have IV antibiotics. Patient was seen by Physical therapy and recommended for Rehab. Patient was discharged to rehabilitation facility and the following discharge instructions. Imagin.Chest portable: no active disease 2. Foot xray: normal left foot radiographs. 3.Lower extremity arterial non invasive compl u/s: relatively normal ROWDY and PVR examination 4.Duplex lower extremity vein bilateral u/s: negative for dvt 5.Foot MRI: minimal marrow edema in the 2nd distal phalanx suspicious for osteomyelitis Discharge Instructions: 1. F/u with PMD within one week of discharge. 2. Patient to have Vancomycin trough repeated every three days and CBC/CMP. 3. Patient to continue IV antibiotics in Rehab. 4. Patient should return to hospital for any new or worsening symptoms. Discharge Exam - Head Exam Head Exam: NORMAL INSPECTION - Eye Exam Eye Exam: Conjunctival injection, EOMI, Normal appearance, PERRL Pupil Exam: NORMAL ACCOMODATION, PERRL - ENT Exam ENT Exam: Mucous Membranes Moist, Normal Oropharynx - Respiratory Exam Respiratory Exam: Clear to PA & Lateral, NORMAL BREATHING PATTERN, UNREMARKABLE - Cardiovascular Exam Cardiovascular Exam: REGULAR RHYTHM, +S1, +S2 - GI/Abdominal Exam GI & Abdominal Exam: Normal Bowel Sounds, Unremarkable - Neurological Exam Neurological exam: Alert, CN II-XII Intact, Oriented x3 - Psychiatric Exam Psychiatric exam: Normal Affect, Normal Mood - Skin Skin Exam: Dry, Intact Additional comments: Left foot wrapped. Discharge Plan - Discharge Medications Prescriptions: Cadexomer Iodine 0.9% [Iodosorb] 40 applic TOP ONCE #1 tube Zaleplon [Sonata] 5 mg PO HS PRN #30 cap PRN Reason: Insomnia Acetaminophen [Tylenol] 650 mg PO Q12 PRN #15 capsule PRN Reason: Fever >100.4 F Vancomycin [Vancomycin Inj] 1.5 gm IVPB Q12H #84 vial - Follow Up Plan Condition: STABLE Disposition: TRANSF TO SNF Instructions: Cellulitis (Skin Infection), Adult (DC) Additional Instructions: 1. F/u with PMD within one week of discharge. 2. Patient to have Vancomycin trough repeated every three days and CBC/CMP. 3. Patient to continue IV antibiotics in Rehab. 4. Patient should return to hospital for any new or worsening symptoms. <Marcy Hope - Last Filed: 07/28/17 16:01> Provider - Provider Date of Admission: 07/22/17 23:09 Attending physician: Marcy Hope MD Hospital Course - Lab Results Lab Results: Micro Results 07/23/17 08:00 Foot - Left Gram Stain - Final 07/23/17 08:00 Foot - Left Wound Culture - Final Methicillin Resistant S Aureus 07/23/17 00:44 Other: Please Indicate Gram Stain - Final 07/23/17 00:44 Other: Please Indicate Wound Culture - Final Methicillin Resistant S Aureus Most Recent Lab Values WBC 4.4 10^3/ul (4.5-11.0) L D 07/27/17 06:00 RBC 3.80 10^6/uL (3.5-6.1) 07/27/17 06:00 Hgb 11.4 g/dL (14.0-18.0) L 07/27/17 06:00 Hct 33.5 % (42.0-52.0) L 07/27/17 06:00 MCV 88.2 fl (80.0-105.0) 07/27/17 06:00 MCH 30.0 pg (25.0-35.0) 07/27/17 06:00 MCHC 34.0 g/dl (31.0-37.0) 07/27/17 06:00 RDW 13.9 % (11.5-14.5) 07/27/17 06:00 Plt Count 160 10^3/uL (120.0-450.0) 07/27/17 06:00 MPV 9.6 fl (7.0-11.0) 07/27/17 06:00 Gran % 60.3 % (50.0-68.0) 07/27/17 06:00 Lymph % (Auto) 25.5 % (22.0-35.0) 07/27/17 06:00 [place] % (Auto) 10.2 % (1.0-6.0) H 07/27/17 06:00 Eos % (Auto) 3.8 % (1.5-5.0) 07/27/17 06:00 Baso % (Auto) 0.2 % (0.0-3.0) 07/27/17 06:00 Gran # 2.67 (1.4-6.5) 07/27/17 06:00 Lymph # (Auto) 1.1 (1.2-3.4) L 07/27/17 06:00 [place] # (Auto) 0.5 (0.1-0.6) 07/27/17 06:00 Eos # (Auto) 0.2 (0.0-0.7) 07/27/17 06:00 Baso # (Auto) 0.01 K/mm3 (0.0-2.0) 07/27/17 06:00 ESR 55 mm/hr (0.00-15.0) H 07/23/17 06:30 PT 14.9 SECONDS (9.4-12.5) H 07/22/17 21:53 INR 1.30 (0.93-1.08) H 07/22/17 21:53 APTT 30.2 Seconds (25.1-36.5) 07/22/17 21:53 pO2 55 mm/Hg (30-55) 07/22/17 21:53 VBG pH 7.43 (7.32-7.43) 07/22/17 21:53 VBG pCO2 39.0 (40-60) L 07/22/17 21:53 VBG HCO3 25.9 mmol/l (21-28) 07/22/17 21:53 VBG Total CO2 27.1 mmol.L (22-28) 07/22/17 21:53 VBG O2 Sat (Calc) 94.2 % (40-65) H 07/22/17 21:53 VBG Base Excess 1.5 mmol/L (0.0-2.0) 07/22/17 21:53 VBG Potassium 3.7 mmol/L (3.6-5.2) 07/22/17 21:53 Sodium 136.0 mmol/L (132-148) 07/22/17 21:53 Chloride 103.0 mmol/L (98-107) 07/22/17 21:53 Glucose 119 mg/dl (75-110) H 07/22/17 21:53 Lactate 1.0 mmol/L (0.7-2.1) 07/22/17 21:53 FiO2 21.0 % 07/22/17 21:53 Sodium 146 mmol/L (132-148) 07/27/17 06:00 Potassium 4.0 mmol/L (3.6-5.0) 07/27/17 06:00 Chloride 106 mmol/L (98-107) 07/27/17 06:00 Carbon Dioxide 28 mmol/L (21-33) 07/27/17 06:00 Anion Gap 16 (10-20) 07/27/17 06:00 BUN 4 mg/dL (7-21) L 07/27/17 06:00 Creatinine 0.8 mg/dl (0.8-1.5) 07/27/17 06:00 Est GFR ( Amer) > 60 07/27/17 06:00 Est GFR (Non-Af Amer) > 60 07/27/17 06:00 Random Glucose 93 mg/dL (70-110) 07/27/17 06:00 Hemoglobin A1c 5.6 % (4.2-6.5) 07/23/17 00:15 Calcium 9.1 mg/dL (8.4-10.5) 07/27/17 06:00 Phosphorus 2.2 mg/dL (2.5-4.5) L 07/23/17 06:30 Magnesium 2.5 mg/dL (1.7-2.2) H 07/23/17 06:30 Total Bilirubin 0.5 mg/dL (0.2-1.3) 07/26/17 09:30 AST 18 U/L (17-59) 07/26/17 09:30 ALT 27 U/L (7-56) 07/26/17 09:30 Alkaline Phosphatase 58 U/L (38-126) 07/26/17 09:30 Lactate Dehydrogenase 455 U/L (333-699) 07/22/17 21:53 Total Creatine Kinase 227 U/L (35-230) 07/22/17 21:53 Troponin I 0.01 ng/mL D 07/22/17 21:53 Total Protein 6.6 g/dL (5.8-8.3) 07/26/17 09:30 Albumin 3.6 g/dL (3.0-4.8) 07/26/17 09:30 Globulin 3.0 gm/dL 07/26/17 09:30 Albumin/Globulin Ratio 1.2 (1.1-1.8) 07/26/17 09:30 25-OH Vitamin D Total 50.6 NG/ML (30.0-100.0) 07/23/17 06:30 Procalcitonin 0.39 NG/ML (0.19-0.49) 07/23/17 00:15 Venous Blood Potassium 3.7 mmol/L (3.6-5.2) 07/22/17 21:53 Vancomycin Trough 15.0 ug/mL (5.0-10.0) H 07/25/17 22:40 Attending/Attestation - Attestation I have personally seen and examined this patient.: Yes I have fully participated in the care of the patient.: Yes I have reviewed all pertinent clinical information, including history, physical exam and plan: Yes Notes (Text): 07/28/17 16:00 attending note; Patient seen and examined with resident. Patient is a 51 year old male with past medical history of Crohn's disease, colostomy, Susac Syndrome, bilateral hearing loss who presented to the ED with 2 day history of left 2nd toe swelling and pain. Cultures growing MRSA. patient is currently on IV vancomycin. ID evaluation appreciated. MRI showed acute osteomyelitis. Patient is refusing surgery. Follow-up with [facility]. patient needs IV vancomycin for 4-6 weeks. History of depression; psychiatric evaluation appreciated. Denies any suicidal ideation. Susac syndrome; follow-up with Dr. López closely. history of DVT in the past. Repeat ultrasound is negative. We can discontinue Eliquis per oncology. case discussed with caser up for discharge planning / outpatient antibiotics and arrangements. Patient will be transferred to rehabilitation today. Continue vancomycin. Needs bmp and Vanco level every 3 days. upon discharge the patient will follow-up with PMD Dr. Camacho. Diagnosis; Left second toe osteomyelitis MRSA Susac disease Bilateral hearing loss Colostomy
[2017-07-27 19:27] VITALS: BP 132/74; PULSE 79; TEMP 98.9; O2SAT 98
--- NOTE | 2017-07-27 19:50 | US ---
HISTORY: Arm pain and swelling. Evaluate for deep venous thrombosis. PHYSICIAN(S): Jose Suero MD. FINDINGS: There is post-phlebitic change in the right IJ. No acute DVT is noted. The left IJ is normal. The visualized segments of the subclavian veins are patent with normal waveforms. No sonographic evidence of obstruction or thrombosis is seen. The visualized deep venous systems of both upper extremities proximally are sonographically normal and compressible. IMPRESSION: 1. No sonographic evidence for acute deep venous thrombosis in the visualized segments of both upper strategies. 2. Post-phlebitic changes in the right IJ.
--- NOTE | 2017-07-28 08:00 | PN ---
DATE: 07/27/2017 SUBJECTIVE: The patient is a 51-year-old with multiple medical problems. Patient was admitted from the medical side, was found to have osteomyelitis of his toe. The patient decided to have amputation of the toe. Psych consult was called for evaluation of depressive symptoms and patient is on multiple psychotropic medications. Patient was seen for followup today. Patient is not sure who was prescribing Elavil, Paxil, Seroquel, and Wellbutrin. Patient was complaining that he is taking more than 140 pills a week. Patient was willing to adjust his medications and try to discontinue Elavil as well as Paxil and Seroquel moreover, these medications were in subtherapeutic doses. Patient wants to continue Wellbutrin because it is weight neutral, will improve memory and concentration, antidepressant and usually it is very well tolerated. Treatment plan was discussed in detail with the patient. Patient was in agreement with that and was appreciative. LABORATORY DATA: Reviewed. WBC cells are going up, 4.4 today. VITAL SIGNS: Seems to be stable. MEDICATIONS: Reviewed. Patient is on Tylenol. Now patient will be on Wellbutrin 150 mg daily, vitamin D, Pepcid, Pentasa, Zofran, Lyrica, Flomax as well as vancomycin as well as Sonata will be ordered as needed for insomnia. Elavil will be discontinued. Paxil will be discontinued and Seroquel will be discontinued. MENTAL STATUS EXAMINATION: Patient appears to be sleepy, is arousable. Patient is hard of hearing, that is why he talks kind of loud. Mood described as depressed. Affect was constricted, but reactive and mood congruent , pt was congruent. Thought process was coherent and goal-directed. Thought content: Patient reported that at times he feels hopeless and helpless, at times he wished to be , but denies any intents or plan to kill himself. Insight and judgment are improving. Impulses are well controlled. IMPRESSION: Most likely, patient has major depressive disorder, rule out mood disorder due to general medical condition. PLAN: Medications adjusted. Supportive therapy and empathic listening provided. We will try to follow up on this patient and advise accordingly. Thank you very much for letting me participate in the care of your patient. Case was discussed with the primary care team. Brandie Schaefer MD [facility] # [phone] [place]
--- NOTE | 2017-07-28 09:08 | CP.PCM.PCO ---
Physician Communication Note - Physician Communication Note Physician Communication Note: pt was d/c
[2017-08-03] MEDS ORDERED: Cholecalciferol 1,000 INTLU TAB PO SCH (10:00)
== END 2017-07-27 21:23 | DRG 872 ==
LOC: ED 20:09 → ERH 23:09 → 3RNO 07-23 00:29
PROVIDERS: ADMIT Internal Medicine; ATTEND Internal Medicine
PROC: 0H9NXZZ Drainage of Left Foot Skin, External Approach (ICD-10-PCS; principal; 2017-07-23)
DX: A41.9 Sepsis, unspecified organism (principal); M86.172 Other acute osteomyelitis, left ankle and foot; L02.612 Cutaneous abscess of left foot; K50.90 Crohn's disease, unspecified, without complications; D80.1 Nonfamilial hypogammaglobulinemia; L97.529 Non-pressure chronic ulcer of other part of left foot with unspecified severity; L03.032 Cellulitis of left toe; B95.62 Methicillin resistant Staphylococcus aureus infection as the cause of diseases classified elsewhere; F32.9 Major depressive disorder, single episode, unspecified; N40.0 Benign prostatic hyperplasia without lower urinary tract symptoms; E83.42 Hypomagnesemia; H91.93 Unspecified hearing loss, bilateral; L40.50 Arthropathic psoriasis, unspecified; D89.89 Other specified disorders involving the immune mechanism, not elsewhere classified; E55.9 Vitamin D deficiency, unspecified; I08.2 Rheumatic disorders of both aortic and tricuspid valves; I77.6 Arteritis, unspecified; Z93.3 Colostomy status; Z79.01 Long term (current) use of anticoagulants; Z86.718 Personal history of other venous thrombosis and embolism; Z87.891 Personal history of nicotine dependence; Z82.49 Family history of ischemic heart disease and other diseases of the circulatory system; Z80.3 Family history of malignant neoplasm of breast; Z83.3 Family history of diabetes mellitus

== ENCOUNTER 2018-02-28 13:39 | Outpatient (CLI) | payer MEDICARE, MEDICAID | END 2018-02-28 13:40 | disposition home or self-care (01) | LOC: OPLAB 13:39 | DX: D64.9 Anemia, unspecified (principal); E78.5 Hyperlipidemia, unspecified; M81.0 Age-related osteoporosis without current pathological fracture; E83.40 Disorders of magnesium metabolism, unspecified ==

== ENCOUNTER 2018-03-01 12:35 | Outpatient (CLI) | payer MEDICARE, MEDICAID | END 2018-03-01 12:36 | disposition home or self-care (01) | LOC: OPLAB 12:35 ==

== ENCOUNTER 2018-03-28 14:52 | Outpatient (CLI) | payer MEDICARE | END 2018-03-28 14:53 | disposition home or self-care (01) | LOC: OPLAB 14:52 | DX: D64.9 Anemia, unspecified (principal); E78.5 Hyperlipidemia, unspecified; E83.40 Disorders of magnesium metabolism, unspecified; M81.0 Age-related osteoporosis without current pathological fracture ==

== ENCOUNTER 2018-03-29 12:38 | Outpatient (CLI) | payer MEDICARE | END 2018-03-29 12:39 | disposition home or self-care (01) | LOC: OPLAB 12:38 ==

== ENCOUNTER 2018-04-25 13:30 | Outpatient (CLI) | payer MEDICARE | END 2018-04-25 13:31 | disposition home or self-care (01) | LOC: OPLAB 13:30 ==

== ENCOUNTER 2018-04-27 13:39 | Outpatient (CLI) | payer MEDICARE | END 2018-04-27 13:40 | disposition home or self-care (01) | LOC: OPLAB 13:39 ==

== ENCOUNTER → 2018-05-24 | Outpatient (CLI) | payer MEDICARE | LOC: OPLAB 13:23 ==

== ENCOUNTER 2018-06-21 12:27 | Outpatient (CLI) | payer MEDICARE | END 2018-06-21 12:28 | disposition home or self-care (01) | LOC: OPLAB 12:27 | DX: D64.9 Anemia, unspecified (principal); E78.5 Hyperlipidemia, unspecified; M81.0 Age-related osteoporosis without current pathological fracture; E83.40 Disorders of magnesium metabolism, unspecified ==

== ENCOUNTER 2018-06-22 13:05 | Outpatient (CLI) | payer MEDICARE | END 2018-06-22 13:06 | disposition home or self-care (01) | LOC: OPLAB 13:05 ==

== ENCOUNTER 2018-07-01 08:22 | Inpatient (IN) | payer MEDICARE ==
[2018-07-01] MEDS ORDERED: Sodium Chloride 0.9% 1,000 ML IV STA ×2 (08:48→09:29)
--- NOTE | 2018-07-01 08:49 | ED PDOC ---
Arrival/HPI - General Chief Complaint: Weakness/Neurological Deficit Time Seen by Provider: 07/01/18 08:22 Historian: Patient, Family - Critical Care Critical Care Minutes: 75 minutes - History of Present Illness Narrative History of Present Illness (Text): 07/01/18 08:48 52 year old male, with a past medical history of Crohn's disease, s/p colostomy, and Susac's syndrome, who presents to the emergency department complaining of generalized weakness. According to his brother, the patient called him night complaining of nausea and vomiting. The patient's brother reports he found patient on the floor this morning. Patient reports he had been on the floor for the past 2 days and was too weak to get up. PMD: Dr. Camacho Specialist: Dr. 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) Other/Comment: slight speech impediment - Renal Hx Renal Disorder: No - Endocrine/Metabolic Hx Endocrine Disorders: No - Hematological/Oncological Hx Blood Transfusions: No Hx Blood Transfusion Reaction: No - Integumentary Hx Dermatological Disorder: Yes Hx Psoriasis: Yes - Musculoskeletal/Rheumatological Hx Musculoskeletal Disorders: Yes - Gastrointestinal Hx Gastrointestinal Disorders: Yes Hx Colostomy: Yes Hx Crohn's Disease: Yes (dx at 15 yrs old) Other/Comment: colostomy - Genitourinary/Gynecological Hx Genitourinary Disorders: No - Psychiatric Hx Emotional Abuse: No Hx Physical Abuse: No Hx Substance Use: No - Surgical History Other/Comment: colostomy bag. abdominal sx - Anesthesia Hx Anesthesia Reactions: No Hx Malignant Hyperthermia: No - Suicidal Assessment Feels Threatened In Home Enviroment: No Family/Social History - Physician Review Nursing Documentation Reviewed: Yes Family/Social History: Unknown Family HX Smoking Status: Former Smoker Hx Alcohol Use: No Hx Substance Use: No Allergies/Home Meds Allergies/Adverse Reactions: Allergies homeopathic substance (from [facility]) Allergy (Intermediate, Uncoded 07/01/18 08:44) RASH [facility] Allergy (Uncoded 07/01/18 08:44) RASH Home Medications: Home Meds Medication Instructions Recorded Confirmed Bupropion HCl [Bupropion Xl] 150 mg PO DAILY 07/15/11 07/22/17 Mesalamine ER Cap [Pentasa] 2 cap PO QID 11/17/16 07/22/17 Cholecalciferol [Vitamin D 1000 IU] 50,000 unit PO WED 02/12/17 07/22/17 Pregabalin [Lyrica] 50 mg PO BID 02/12/17 07/22/17 Review of Systems - Physician Review All systems were reviewed & negative as marked: Yes - Review of Systems Gastrointestinal: Abdominal Pain Physical Exam Vital Signs Reviewed: Yes Vital Signs Temp Pulse Resp BP Pulse Ox 07/01/18 08:33 98.4 F 104 H 17 144/92 H 97 Temperature: Afebrile Blood Pressure: Normal Pulse: Tachycardic Respiratory Rate: Normal Appearance: Positive for: Well-Appearing, Non-Toxic, Comfortable Pain Distress: Mild Mental Status: No: Alert and Oriented X 3 Finger Stick Blood Glucose: 125 - Systems Exam Head: Present: Atraumatic, Normocephalic Pupils: Present: PERRL Extroacular Muscles: Present: EOMI Conjunctiva: Present: Normal Mouth: Present: Dry Neck: Present: Normal Range of Motion Respiratory/Chest: Present: Clear to Auscultation, Decreased Breath Sounds. No: Respiratory Distress, Accessory Muscle Use, Wheezes, Rales, Rhonchi Cardiovascular: Present: Regular Rate and Rhythm, Normal S1, S2. No: Murmurs Abdomen: Present: Other (Stoma noted to left lower quadrant. circumferential erythema noted around stoma). No: Tenderness, Distention, Peritoneal Signs Back: Present: Normal Inspection Upper Extremity: Present: Normal Inspection. No: Cyanosis, Edema Lower Extremity: Present: Normal Inspection. No: Edema Neurological: Present: GCS=15, Speech Normal Skin: Present: Warm, Dry, Normal Color. No: Rashes Psychiatric: Present: Alert, Normal Insight, Normal Concentration. No: Oriented x 3 (Oriented x 2 ) Medical Decision Making ED Course and Treatment: 07/01/18 08:46 Impression: 52 year old male presents to the emergency department complaining of abdominal pain. Plan: --CT abdomen and pelvis --Renal US --Cefipime --Vancomycin --Calcium gluconate --Sodium bicarbonate --Albuterol --Insulin --Dextrose -- Chest X-ray -- Labs -- VBG -- Iv fluids -- Urine culture -- Blood culture -- Urinalysis -- Reassess and disposition Progress Notes: 07/01/18 09:43 Labs reveal acute hyperkalemia of 6.9 noted. Hyperkalemia protocol ordered. Discussed case with Dr. Hope(hospitalist) who requests for Dr. López to be consulted to determine who will accept admission. 07/01/18 09:48 Leukocytosis of 16 noted with tachycardia 110s. Code sepsis called. Antibiotics ordered with 30cc/kg saline bolus ordered. Call placed to Dr. López(oncology). 07/01/18 10:[address] Caldwell(oncology) who states he will accept the admission onto his service. He requests for Drs. Clay(infectious disease), Siddhartha machuca(nephrology), & Sary(GI). Discussed case with Dr. Tyson(yard caller) who will come down and evaluate the patient. 07/01/18 11:[address] Gutierrez(covering for Dr. Rice) who requests for renal US & possible urology consult and will be unable to see the patient today. He states he will communicate plan of care with admitting team. Renal US ordered. - Lab Interpretations Lab Results: 07/01/18 08:50 07/01/18 08:50 Lab Results 07/01/18 09:10: pO2 53, VBG pH 7.31 L, VBG pCO2 36.0 L, VBG HCO3 18.1 L, VBG Total CO2 19.2 L, VBG O2 Sat (Calc) 86.5 H, VBG Base Excess -7.4 L, VBG Potassium 6.9 H*, Glucose 123 H, Lactate 3.6 H, FiO2 21.0, Crit Value Called To Steffanie ortiz, Crit Value Called By Landry, Blood Gas Notified Time 922, Sodium 132.0, Chloride 96.0 L, Venous Blood Potassium 6.9 H* 07/01/18 08:50: Sodium 138, Potassium 6.9 H* D, Chloride 96 L, Carbon Dioxide 18 L, Anion Gap 31 H, BUN 101 H, Creatinine 9.4 H* D, Est GFR ( Amer) 7, Est GFR (Non-Af Amer) 6, Random Glucose 131 H, Calcium 10.2, Phosphorus 2.7, Magnesium 2.1, Total Bilirubin 1.8 H, AST 213 H D, ALT 60 H, Alkaline Phosphatase 103, Total Creatine Kinase Pending, Troponin I Pending, NT-Pro-B Natriuret Pep Pending, Total Protein 8.7 H, Albumin 4.4, Globulin 4.3, Albumin/Globulin Ratio 1.0 L 07/01/18 08:50: PT 18.2 H, INR 1.61, APTT 52.2 H 07/01/18 08:50: WBC 16.9 H, RBC 4.93, Hgb 15.6 D, Hct 44.9, MCV 91.1, MCH 31.6, MCHC 34.7, RDW 14.1, Plt Count 232, MPV 11.1 H, Neut % (Auto) 83.8 H, Lymph % (Auto) 5.3 L, [place] % (Auto) 10.6 H, Eos % (Auto) 0.1 L, Baso % (Auto) 0.2, Lymph # (Auto) 0.9 L, [place] # (Auto) 1.8 H, Eos # (Auto) 0.0, Baso # (Auto) 0.03, Absolute Neuts (auto) 14.15 H I have reviewed the lab results: Yes - RAD Interpretation Narrative RAD Interpretations (Text): 07/01/18 11:13 Chest X-ray reviewed by radiologist, shows: No active disease. 07/01/18 12:40 Renal Ultrasound reviewed by radiologist, shows: unremarkable renal sonogram. No significant interval chnage compared to the prior examination(s). 07/01/18 13:37 CT abdomen and pelvis reviewed by radiologist, shows: There is a ventral hernia to the left of midline adjacent to the left lower quadrant colostomy site. There is dilatation of small bowel loops proximal to the hernia as well as within the hernia itself. Findings are consistent with incarcerated hernia with partial small bowel obstruction. The dilated bowel loop within the hernia sac measures 7.7 cm in diameter. Toe Pounder: Radiologist - Deborahibjae Statement The provider has reviewed the documentation as recorded by the Deborahibe Diane Villalobos All medical record entries made by the Ritika were at my direction and personally dictated by me. I have reviewed the chart and agree that the record accurately reflects my personal performance of the history, physical exam, medical decision making, and the department course for this patient. I have also personally directed, reviewed, and agree with the discharge instructions and disposition. Disposition/Present on Arrival - Present on Arrival Any Indicators Present on Arrival: No History of DVT/PE: No History of Uncontrolled Diabetes: No Urinary Catheter: No History of Decub. Ulcer: No History Surgical Site Infection Following: None - Disposition Have Diagnosis and Disposition been Completed?: Yes Diagnosis: Sepsis, Acute renal failure Disposition: HOSPITALIZED Disposition Time: 10:30 Patient Plan: Admission, ICU Patient Problems: Current Active Problems Problem Status Onset Acute renal failure Acute Sepsis Acute Condition: CRITICAL
[2018-07-01 09:23] LABS: BASO # 0.03 K/mm3 (0.0-2.0); BASO % 0.2 % (0.0-3.0); EOS % 0.1 % (1.5-5.0); HEMOGLOBIN 15.6 g/dL (14.0-18.0); LYMPH # 0.9 (1.2-3.4); LYMPH % 5.3 % (22.0-35.0); MEAN CELL VOLUME 91.1 fl (80.0-105.0); MEAN CORPUSCULAR HEMOGLOBIN 31.6 pg (25.0-35.0); MEAN CORPUSCULAR HGB CONC 34.7 g/dl (31.0-37.0); MEAN PLATELET VOLUME 11.1 fl (7.0-11.0); MONO # 1.8 (0.1-0.6); MONO % 10.6 % (1.0-6.0); RBC 4.93 10^6/uL (3.5-6.1); RED CELL DISTRIBUTION WIDTH 14.1 % (11.5-14.5); WHITE BLOOD COUNT 16.9 10^3/uL (4.5-11.0)
[2018-07-01 09:23] LABS: VENOUS BLOOD GAS BASE EXCESS -7.4 mmol/L (0.0-2.0); VENOUS BLOOD GAS PO2 53 mm/Hg (30-55); VENOUS BLOOD PH 7.31 (7.32-7.43)
[2018-07-01 09:27] LABS: INR 1.61; PARTIAL THROMBOPLASTIN TIME 52.2 Seconds (26.9-38.3); PROTHROMBIN TIME 18.2 SECONDS (9.4-12.5)
[2018-07-01 09:34] LABS: ALBUMIN 4.4 g/dL (3.0-4.8); CALCIUM 10.2 mg/dL (8.4-10.5)
[2018-07-01] MEDS ORDERED: Albuterol 0.083% Inhal Sol (2.5 mg/3 mL) UD INH STA (09:37)
[2018-07-01] MEDS ORDERED: Sodium Bicarbonate (8.4%) 50 Meq Syringe IVP ONE ×3 (09:37→22:36)
[2018-07-01] MEDS ORDERED: Insulin Regular 1 UNITS/0.01 ML ML SC ONE (09:39)
[2018-07-01] MEDS ORDERED: Vancomycin 1gm in NS 250ml 1 GM/250 ML BAG IVPB STA (09:50)
[2018-07-01] MEDS ORDERED: Cefepime 1gm in NS 100ml 1 GM/100 ML BAG IVPB STA (09:50)
[2018-07-01 09:54] LABS: CK MB% 1.3 % (2.5-3.0); CK-MB 91.2 ng/mL (0.0-3.6); TROPONIN I 0.16 ng/mL
--- NOTE | 2018-07-01 10:51 | RAD ---
Date of service: 07/01/2018 HISTORY: Sepsis Patient COMPARISON: 07/23/2017 TECHNIQUE: 1 view obtained. FINDINGS: LUNGS: No active pulmonary disease. PLEURA: No significant pleural effusion identified, no pneumothorax apparent. CARDIOVASCULAR: No aortic atherosclerotic calcification present. Normal cardiac size. No pulmonary vascular congestion. OSSEOUS STRUCTURES: No significant abnormalities. VISUALIZED UPPER ABDOMEN: Normal. OTHER FINDINGS: None. IMPRESSION: No active disease.
[2018-07-01] MEDS ORDERED: Dextrose 50% SYRINGE Inj (50 ml) IVP STA ×2 (11:03→22:37)
--- NOTE | 2018-07-01 12:27 | CP.PCM.CON ---
<Lennox Pineda - Last Filed: 07/01/18 15:21> History of Present Illness - History of Present Illness History of Present Illness: Lennox Pineda, PGY-1 Consult Note for ICU CC: Abdominal pain HPI: Mr. Bonilla is a 52 year old male with past medical history of Crohn's disease s/p colostomy, Susac syndrome, psoriasis, cerebral vasculitis with bilateral hearing loss, depression presents to the ED after being found down on the ground. Patient is currently disoriented, so much of the history is gathered from previous documentation and from brother who found him this morning. Patient does not remember the circumstances in which he came to be on the ground, only that he was too weak to rise and call for help for some time. Last known contact with patient was evening by sister, when patient stated on the phone that he was not feeling well. Patient denies fevers/chills, headaches, diz ziness, chest pain, palpitations, shortness of breath, urinary symptoms, numbness/tingling. Patient was afebrile but tachycardic upon presentation to ED. Patient received Vancomycin x 1 dose, Cefepime x 1 dose, ~ 4 L NS. PMD: Dr Aburto Allergies: Homeopathic substance (from [employer]), sammarinesespring soap Medications: From previous record, Monthly IV gammaglobulin, Pentasa, Seroquel 200mg PO HS, Flomax 0.4mg PO daily, Kdur 20meq Qotherday, Lyrica 50mg PO BID, Pentasa 2 cap PO QID, Amitriptyline 10mg PO HS, Buproprion 150mg PO daily, Eliquis 2.5mg PO BID, Ergocalciferol 1 tab PO Q7D, Pepcid 20mg PO daily, Paxil 10mg PO daily Medical History: Crohn's disease, Susac syndrome, psoriasis, depression, cerebral angiitis, bilateral hearing loss, hypogammaglobulinemia Surgical History: Colostomy x 2, Port in left upper arm Social History: Former smoker, denies alcohol, tobacco use Family History: Mother - breast cancer; Father - aneurysm, DM, heart disease Review of Systems - Review of Systems Review of Systems: 12 point ROS completed and negative except as described in HPI. 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) Other/Comment: slight speech impediment - RENAL Hx Chronic Kidney Disease: No - ENDOCRINE/METABOLIC Hx Endocrine Disorders: No - HEMATOLOGICAL/ONCOLOGICAL Hx Blood Transfusions: No Hx Blood Transfusion Reaction: No - INTEGUMENTARY Hx Dermatological Problems: Yes Hx Psoriasis: Yes - MUSCULOSKELETAL/RHEUMATOLOGICAL Hx Musculoskeletal Disorders: Yes - GASTROINTESTINAL Hx Gastrointestinal Disorders: Yes Hx Colostomy: Yes Hx Crohn's Disease: Yes (dx at 15 yrs old) Other/Comment: colostomy - GENITOURINARY/GYNECOLOGICAL Hx Genitourinary Disorders: No - PSYCHIATRIC Hx Emotional Abuse: No Hx Physical Abuse: No Hx Substance Use: No - SURGICAL HISTORY Other/Comment: colostomy bag. abdominal sx - ANESTHESIA Hx Anesthesia Reactions: No Hx Malignant Hyperthermia: No Meds Allergies/Adverse Reactions: Allergies Allergy/AdvReac Type Severity Reaction Status Date / Time homeopathic substance (from Allergy Intermediate RASH Uncoded 07/01/18 08:44 Rosario) [facility] SOAP Allergy RASH Uncoded 07/01/18 08:44 Physical Exam - Constitutional Appears: Toxic, No Acute Distress, Older Than Stated Age - Head Exam Head Exam: ATRAUMATIC, NORMAL INSPECTION, NORMOCEPHALIC - Eye Exam Eye Exam: EOMI, Normal appearance Pupil Exam: PERRL - ENT Exam ENT Exam: Mucous Membranes Dry - Neck Exam Neck exam: Positive for: Full Rom - Respiratory Exam Respiratory Exam: Decreased Breath Sounds, Clear to Auscultation Bilateral, NORMAL BREATHING PATTERN - Cardiovascular Exam Cardiovascular Exam: RRR, +S1, +S2 - GI/Abdominal Exam GI & Abdominal Exam: Hypoactive Bowel Sounds. absent: Bruit, Firm, Guarding Additional comments: Malodorous tender L sided portion of abdomen w marked erythema from midline adjacent to ostomy in LLQ - Extremities Exam Extremities exam: Negative for: calf tenderness, pedal edema - Neurological Exam Neurological exam: Alert (AAOx2) - Psychiatric Exam Psychiatric exam: Depressed Results - Vital Signs Recent Vital Signs: Last Vital Signs Temp 98.4 F 07/01/18 08:33 Pulse 118 H 07/01/18 11:57 Resp 16 07/01/18 11:57 BP 136/72 07/01/18 11:57 Pulse Ox 96 07/01/18 11:57 - Labs Result Diagrams: 07/01/18 14:00 07/01/18 14:00 Labs: Laboratory Results - last 24 hr 07/01/18 07/01/18 07/01/18 08:50 08:50 08:50 WBC 16.9 H RBC 4.93 Hgb 15.6 D Hct 44.9 MCV 91.1 MCH 31.6 MCHC 34.7 RDW 14.1 Plt Count 232 MPV 11.1 H Neut % (Auto) 83.8 H Lymph % (Auto) 5.3 L [place] % (Auto) 10.6 H Eos % (Auto) 0.1 L Baso % (Auto) 0.2 Lymph # (Auto) 0.9 L [place] # (Auto) 1.8 H Eos # (Auto) 0.0 Baso # (Auto) 0.03 Absolute Neuts (auto) 14.15 H PT 18.2 H INR 1.61 APTT 52.2 H pO2 VBG pH VBG pCO2 VBG HCO3 VBG Total CO2 VBG O2 Sat (Calc) VBG Base Excess VBG Potassium Glucose Lactate FiO2 Crit Value Called To Crit Value Called By Blood Gas Notified Time Sodium 138 Potassium 6.9 H* D Chloride 96 L Carbon Dioxide 18 L Anion Gap 31 H BUN 101 H Creatinine 9.4 H* D Est GFR ( Amer) 7 Est GFR (Non-Af Amer) 6 Random Glucose 131 H Calcium 10.2 Phosphorus 2.7 Magnesium 2.1 Total Bilirubin 1.8 H AST 213 H D ALT 60 H Alkaline Phosphatase 103 Total Creatine Kinase 7222 H CK-MB (CK-2) 91.2 H CK-MB (CK-2) % 1.3 L Troponin I 0.16 H* D NT-Pro-B Natriuret Pep 6170 H Total Protein 8.7 H Albumin 4.4 Globulin 4.3 Albumin/Globulin Ratio 1.0 L Venous Blood Potassium 07/01/18 09:10 WBC RBC Hgb Hct MCV MCH MCHC RDW Plt Count MPV Neut % (Auto) Lymph % (Auto) [place] % (Auto) Eos % (Auto) Baso % (Auto) Lymph # (Auto) [place] # (Auto) Eos # (Auto) Baso # (Auto) Absolute Neuts (auto) PT INR APTT pO2 53 VBG pH 7.31 L VBG pCO2 36.0 L VBG HCO3 18.1 L VBG Total CO2 19.2 L VBG O2 Sat (Calc) 86.5 H VBG Base Excess -7.4 L VBG Potassium 6.9 H* Glucose 123 H Lactate 3.6 H FiO2 21.0 Crit Value Called To Steffanie ortiz Crit Value Called By Adri Blood Gas Notified Time 922 Sodium 132.0 Potassium Chloride 96.0 L Carbon Dioxide Anion Gap BUN Creatinine Est GFR ( Amer) Est GFR (Non-Af Amer) Random Glucose Calcium Phosphorus Magnesium Total Bilirubin AST ALT Alkaline Phosphatase Total Creatine Kinase CK-MB (CK-2) CK-MB (CK-2) % Troponin I NT-Pro-B Natriuret Pep Total Protein Albumin Globulin Albumin/Globulin Ratio Venous Blood Potassium 6.9 H* Assessment & Plan - Assessment and Plan (Free Text) Assessment: 52 year old male with past medical history of crohn's disease s/p colostomy, Susac syndrome, psoriasis, cerebral vasculitis with bilateral hearing loss, depression who presents in acute renal failure and sepsis 2/2 bowel obstruction. Neuro: -AAOx3, no FND, moving extremities past midline. -Monitor neuro status. -Reorient patient as necessary. Cardio: -RRR, normotensive, no signs of HD compromise -Maintain MAP>65. -Monitor for S/S, HD compromise. Pulm: -No signs of respiratory distress. CTA B/L -Maintain O2 saturation >90%. -O2 NC PRN -aspiration precautions, fall precautions -CXR 07/01/18 neg -Elevate bed to 30 degrees GI: 07/01/18 CT abd/pel: incarcerated ventral hernia with partial SBO adjacent to colostomy. -NPO -Protonix -Pain control with Morphine -Dr. Hope on consult -Gen Surg on consult- Dr. Voss /Nephro: -Acute renal failure, Cr trending down 9.4>9.1, BMP q4h -Improving hyperkalemia -Nephro on consult- Dr. Rice -Estrada in place, draining concentrated urine -4.5 L IVF thus far, will continue on maintenance IVF NS@125 cc/hr -F/u myoglobin and repeat CK to r/o rhabdo -Continue monitoring. -Daily weights, Strict Is and Os -Replete electrolytes as needed. -Maintain euvolemia. Endocrinology: -Random glucose: 131 -Maintain euglycemia. Heme/Onc: -H/H stable -No signs of HD compromise. -Dr. López on consult for Hx of Susac syndrome ID: -Afebrile, leukocytosis present -Lactate 3.6>2.6 -F/U ABG -Follow up BCx, UCx -Monitor for signs and symptoms of infection. DVT prophylaxis: SCDs Patient seen, case reviewed and plan approved by Dr. Regan Pineda, PGY-1 <Curt Tyson - Last Filed: 07/02/18 08:18> Meds - Medications Medications: Current Medications Famotidine (Pepcid) 20 mg IVP DAILY SANTINO Last Admin: 07/01/18 15:00 Dose: 20 mg Piperacillin Sod/Tazobactam Sod (Zosyn 3.375 In Ns 100ml) 100 mls @ 25 mls/hr IVPB Q12 SANTINO; Protocol Stop: 07/11/18 10:01 Sodium Bicarbonate 100 meq/ (Dextrose) 1,100 mls @ 150 mls/hr IV .Q7H20M SANTINO Last Admin: 07/02/18 07:50 Dose: 150 mls/hr Morphine Sulfate (Morphine) 2 mg IVP Q4H PRN PRN Reason: Pain, severe (8-10) Last Admin: 07/02/18 04:33 Dose: 2 mg Results - Vital Signs Recent Vital Signs: Last Vital Signs Temp 99.3 F 07/01/18 18:40 Pulse 114 H 07/01/18 18:40 Resp 31 H 07/01/18 18:40 BP 156/70 H 07/01/18 18:30 Pulse Ox 96 07/01/18 18:40 - Labs Result Diagrams: 07/02/18 05:30 07/02/18 05:30 Labs: Laboratory Results - last 24 hr 07/01/18 07/01/18 07/01/18 08:50 08:50 08:50 WBC 16.9 H RBC 4.93 Hgb 15.6 D Hct 44.9 MCV 91.1 MCH 31.6 MCHC 34.7 RDW 14.1 Plt Count 232 MPV 11.1 H Neut % (Auto) 83.8 H Lymph % (Auto) 5.3 L [place] % (Auto) 10.6 H Eos % (Auto) 0.1 L Baso % (Auto) 0.2 Lymph # (Auto) 0.9 L [place] # (Auto) 1.8 H Eos # (Auto) 0.0 Baso # (Auto) 0.03 Absolute Neuts (auto) 14.15 H PT 18.2 H INR 1.61 APTT 52.2 H pCO2 pO2 HCO3 ABG pH ABG Total CO2 ABG O2 Saturation ABG O2 Content ABG Base Excess ABG Hemoglobin ABG Carboxyhemoglobin POC ABG HHb (Measured) ABG Methemoglobin ABG O2 Capacity ABG Potassium VBG pH VBG pCO2 VBG HCO3 VBG Total CO2 VBG O2 Sat (Calc) VBG Base Excess VBG Potassium Hgb O2 Saturation Glucose Lactate FiO2 Crit Value Called To Crit Value Called By Blood Gas Notified Time Sodium 138 Potassium 6.9 H* D Chloride 96 L Carbon Dioxide 18 L Anion Gap 31 H BUN 101 H Creatinine 9.4 H* D Est GFR ( Amer) 7 Est GFR (Non-Af Amer) 6 Random Glucose 131 H Calcium 10.2 Phosphorus 2.7 Magnesium 2.1 Total Bilirubin 1.8 H AST 213 H D ALT 60 H Alkaline Phosphatase 103 Total Creatine Kinase 7222 H CK-MB (CK-2) 91.2 H CK-MB (CK-2) % 1.3 L Troponin I 0.16 H* D C-React Prot High Sens NT-Pro-B Natriuret Pep 6170 H Total Protein 8.7 H Albumin 4.4 Globulin 4.3 Albumin/Globulin Ratio 1.0 L Arterial Blood Potassium Venous Blood Potassium Urine Color Urine Appearance Urine pH Ur Specific [place] Urine Protein Urine Glucose (UA) Urine Ketones Urine Blood Urine Nitrate Urine Bilirubin Urine Urobilinogen Ur Leukocyte Esterase Urine RBC Urine WBC Ur Epithelial Cells Urine Bacteria Hyaline Casts Coarse Granular Casts Ur Random Creatinine Ur Random Sodium 07/01/18 07/01/18 07/01/18 08:50 09:10 14:00 WBC RBC Hgb Hct MCV MCH MCHC RDW Plt Count MPV Neut % (Auto) Lymph % (Auto) [place] % (Auto) Eos % (Auto) Baso % (Auto) Lymph # (Auto) [place] # (Auto) Eos # (Auto) Baso # (Auto) Absolute Neuts (auto) PT INR APTT pCO2 pO2 53 78 H HCO3 ABG pH ABG Total CO2 ABG O2 Saturation ABG O2 Content ABG Base Excess ABG Hemoglobin ABG Carboxyhemoglobin POC ABG HHb (Measured) ABG Methemoglobin ABG O2 Capacity ABG Potassium VBG pH 7.31 L 7.37 VBG pCO2 36.0 L 37.0 L VBG HCO3 18.1 L 21.4 VBG Total CO2 19.2 L 22.5 VBG O2 Sat (Calc) 86.5 H 96.7 H VBG Base Excess -7.4 L -3.4 L VBG Potassium 6.9 H* 5.4 H Hgb O2 Saturation Glucose 123 H 150 H Lactate 3.6 H 2.6 H FiO2 21.0 21.0 Crit Value Called To Steffanie estrella rn ccu Crit Value Called By Adri Rush Blood Gas Notified Time 922 1415 Sodium 132.0 134.0 Potassium Chloride 96.0 L 100.0 Carbon Dioxide Anion Gap BUN Creatinine Est GFR ( Amer) Est GFR (Non-Af Amer) Random Glucose Calcium Phosphorus Magnesium Total Bilirubin AST ALT Alkaline Phosphatase Total Creatine Kinase CK-MB (CK-2) CK-MB (CK-2) % Troponin I C-React Prot High Sens > 15.00 H NT-Pro-B Natriuret Pep Total Protein Albumin Globulin Albumin/Globulin Ratio Arterial Blood Potassium Venous Blood Potassium 6.9 H* 5.4 H Urine Color Urine Appearance Urine pH Ur Specific [place] Urine Protein Urine Glucose (UA) Urine Ketones Urine Blood Urine Nitrate Urine Bilirubin Urine Urobilinogen Ur Leukocyte Esterase Urine RBC Urine WBC Ur Epithelial Cells Urine Bacteria Hyaline Casts Coarse Granular Casts Ur Random Creatinine Ur Random Sodium 07/01/18 07/01/18 07/01/18 14:00 14:00 17:40 WBC 12.7 H D RBC 4.44 Hgb 14.0 Hct 40.2 L MCV 90.5 MCH 31.5 MCHC 34.8 RDW 14.2 Plt Count 206 MPV 10.9 Neut % (Auto) 84.6 H Lymph % (Auto) 7.4 L [place] % (Auto) 7.7 H Eos % (Auto) 0.1 L Baso % (Auto) 0.2 Lymph # (Auto) 0.9 L [place] # (Auto) 1.0 H Eos # (Auto) 0.0 Baso # (Auto) 0.02 Absolute Neuts (auto) 10.74 H PT INR APTT pCO2 32 L pO2 93.0 HCO3 19.4 L ABG pH 7.39 ABG Total CO2 20.4 L ABG O2 Saturation 98.4 H ABG O2 Content ABG Base Excess -4.6 L ABG Hemoglobin ABG Carboxyhemoglobin POC ABG HHb (Measured) ABG Methemoglobin ABG O2 Capacity ABG Potassium 5.4 H VBG pH VBG pCO2 VBG HCO3 VBG Total CO2 VBG O2 Sat (Calc) VBG Base Excess VBG Potassium Hgb O2 Saturation Glucose 111 H Lactate 1.7 FiO2 30.0 Crit Value Called To Crit Value Called By Blood Gas Notified Time Sodium 139 136.0 Potassium 5.5 H Chloride 99 105.0 Carbon Dioxide 23 Anion Gap 24 H BUN 113 H Creatinine 9.1 H* Est GFR ( Amer) 7 Est GFR (Non-Af Amer) 6 Random Glucose 153 H Calcium 9.4 Phosphorus 2.4 L Magnesium 2.1 Total Bilirubin 1.1 AST 241 H ALT 67 H Alkaline Phosphatase 91 Total Creatine Kinase CK-MB (CK-2) CK-MB (CK-2) % Troponin I C-React Prot High Sens NT-Pro-B Natriuret Pep Total Protein 7.6 Albumin 3.8 Globulin 3.8 Albumin/Globulin Ratio 1.0 L Arterial Blood Potassium 5.4 H Venous Blood Potassium Urine Color Urine Appearance Urine pH Ur Specific [place] Urine Protein Urine Glucose (UA) Urine Ketones Urine Blood Urine Nitrate Urine Bilirubin Urine Urobilinogen Ur Leukocyte Esterase Urine RBC Urine WBC Ur Epithelial Cells Urine Bacteria Hyaline Casts Coarse Granular Casts Ur Random Creatinine Ur Random Sodium 07/01/18 07/01/18 07/01/18 18:20 18:20 18:20 WBC RBC Hgb Hct MCV MCH MCHC RDW Plt Count MPV Neut % (Auto) Lymph % (Auto) [place] % (Auto) Eos % (Auto) Baso % (Auto) Lymph # (Auto) [place] # (Auto) Eos # (Auto) Baso # (Auto) Absolute Neuts (auto) PT INR APTT pCO2 pO2 85 H HCO3 ABG pH ABG Total CO2 ABG O2 Saturation ABG O2 Content ABG Base Excess ABG Hemoglobin ABG Carboxyhemoglobin POC ABG HHb (Measured) ABG Methemoglobin ABG O2 Capacity ABG Potassium VBG pH 7.33 VBG pCO2 39.0 L VBG HCO3 20.6 L VBG Total CO2 21.8 L VBG O2 Sat (Calc) 97.5 H VBG Base Excess -4.9 L VBG Potassium 5.8 H Hgb O2 Saturation Glucose 115 H Lactate 1.9 FiO2 21.0 Crit Value Called To Crit Value Called By Blood Gas Notified Time Sodium Cancelled 140 136.0 Potassium Cancelled 5.9 H* Chloride Cancelled 100 102.0 Carbon Dioxide Cancelled 21 Anion Gap Cancelled 25 H BUN Cancelled 114 H Creatinine 9.0 H* Est GFR ( Amer) Cancelled 7 Est GFR (Non-Af Amer) Cancelled 6 Random Glucose Cancelled 119 H Calcium Cancelled 9.1 Phosphorus Magnesium Total Bilirubin Cancelled AST Cancelled ALT Cancelled Alkaline Phosphatase Cancelled Total Creatine Kinase 8615 H CK-MB (CK-2) 85.0 H CK-MB (CK-2) % 1.0 L Troponin I 0.10 D C-React Prot High Sens NT-Pro-B Natriuret Pep Total Protein Cancelled Albumin Cancelled Globulin Cancelled Albumin/Globulin Ratio Cancelled Arterial Blood Potassium Venous Blood Potassium 5.8 H Urine Color Urine Appearance Urine pH Ur Specific [place] Urine Protein Urine Glucose (UA) Urine Ketones Urine Blood Urine Nitrate Urine Bilirubin Urine Urobilinogen Ur Leukocyte Esterase Urine RBC Urine WBC Ur Epithelial Cells Urine Bacteria Hyaline Casts Coarse Granular Casts Ur Random Creatinine Ur Random Sodium 07/01/18 07/01/18 07/02/18 18:40 22:00 02:10 WBC RBC Hgb Hct MCV MCH MCHC RDW Plt Count MPV Neut % (Auto) Lymph % (Auto) [place] % (Auto) Eos % (Auto) Baso % (Auto) Lymph # (Auto) [place] # (Auto) Eos # (Auto) Baso # (Auto) Absolute Neuts (auto) PT INR APTT pCO2 pO2 HCO3 ABG pH ABG Total CO2 ABG O2 Saturation ABG O2 Content ABG Base Excess ABG Hemoglobin ABG Carboxyhemoglobin POC ABG HHb (Measured) ABG Methemoglobin ABG O2 Capacity ABG Potassium VBG pH VBG pCO2 VBG HCO3 VBG Total CO2 VBG O2 Sat (Calc) VBG Base Excess VBG Potassium Hgb O2 Saturation Glucose Lactate FiO2 Crit Value Called To Crit Value Called By Blood Gas Notified Time Sodium 140 142 Potassium 6.2 H* 5.7 H* Chloride 103 102 Carbon Dioxide 20 L 22 Anion Gap 23 H 24 H BUN 118 H 121 H* Creatinine 9.3 H* 9.3 H* Est GFR ( Amer) 7 7 Est GFR (Non-Af Amer) 6 6 Random Glucose 126 H 163 H Calcium 8.9 8.7 Phosphorus Magnesium Total Bilirubin AST ALT Alkaline Phosphatase Total Creatine Kinase CK-MB (CK-2) CK-MB (CK-2) % Troponin I 0.09 C-React Prot High Sens NT-Pro-B Natriuret Pep Total Protein Albumin Globulin Albumin/Globulin Ratio Arterial Blood Potassium Venous Blood Potassium Urine Color Dark yellow Urine Appearance Slight-cloudy Urine pH 6.0 Ur Specific [place] 1.025 Urine Protein >=300 H Urine Glucose (UA) Negative Urine Ketones Negative Urine Blood Large H Urine Nitrate Negative Urine Bilirubin Moderate H Urine Urobilinogen 0.2 Ur Leukocyte Esterase Negative Urine RBC 5 - 10 H Urine WBC 0 - 2 Ur Epithelial Cells None Urine Bacteria Few Hyaline Casts 0 - 2 Coarse Granular Casts Trace Ur Random Creatinine Ur Random Sodium 07/02/18 07/02/18 07/02/18 02:53 04:40 05:30 WBC 8.0 D RBC 3.81 Hgb 11.7 L D Hct 34.5 L MCV 90.6 MCH 30.7 MCHC 33.9 RDW 14.4 Plt Count 144 MPV 10.1 Neut % (Auto) 82.5 H Lymph % (Auto) 7.0 L [place] % (Auto) 10.1 H Eos % (Auto) 0.4 L Baso % (Auto) 0.0 Lymph # (Auto) 0.6 L [place] # (Auto) 0.8 H Eos # (Auto) 0.0 Baso # (Auto) 0.00 Absolute Neuts (auto) 6.61 H PT INR APTT pCO2 38 pO2 95.0 HCO3 31.0 H ABG pH 7.52 H ABG Total CO2 32.2 H ABG O2 Saturation 98.5 H ABG O2 Content 23.4 H ABG Base Excess 7.6 H ABG Hemoglobin 17.4 ABG Carboxyhemoglobin 1.5 POC ABG HHb (Measured) 1.5 ABG Methemoglobin 1.4 ABG O2 Capacity 23.8 ABG Potassium VBG pH VBG pCO2 VBG HCO3 VBG Total CO2 VBG O2 Sat (Calc) VBG Base Excess VBG Potassium Hgb O2 Saturation 95.6 Glucose Lactate FiO2 32.0 Crit Value Called To Crit Value Called By Blood Gas Notified Time Sodium Potassium Chloride Carbon Dioxide Anion Gap BUN Creatinine Est GFR ( Amer) Est GFR (Non-Af Amer) Random Glucose Calcium Phosphorus Magnesium Total Bilirubin AST ALT Alkaline Phosphatase Total Creatine Kinase CK-MB (CK-2) CK-MB (CK-2) % Troponin I C-React Prot High Sens NT-Pro-B Natriuret Pep Total Protein Albumin Globulin Albumin/Globulin Ratio Arterial Blood Potassium Venous Blood Potassium Urine Color Urine Appearance Urine pH Ur Specific [place] Urine Protein Urine Glucose (UA) Urine Ketones Urine Blood Urine Nitrate Urine Bilirubin Urine Urobilinogen Ur Leukocyte Esterase Urine RBC Urine WBC Ur Epithelial Cells Urine Bacteria Hyaline Casts Coarse Granular Casts Ur Random Creatinine 74 Ur Random Sodium 87 07/02/18 05:30 WBC RBC Hgb Hct MCV MCH MCHC RDW Plt Count MPV Neut % (Auto) Lymph % (Auto) [place] % (Auto) Eos % (Auto) Baso % (Auto) Lymph # (Auto) [place] # (Auto) Eos # (Auto) Baso # (Auto) Absolute Neuts (auto) PT INR APTT pCO2 pO2 HCO3 ABG pH ABG Total CO2 ABG O2 Saturation ABG O2 Content ABG Base Excess ABG Hemoglobin ABG Carboxyhemoglobin POC ABG HHb (Measured) ABG Methemoglobin ABG O2 Capacity ABG Potassium VBG pH VBG pCO2 VBG HCO3 VBG Total CO2 VBG O2 Sat (Calc) VBG Base Excess VBG Potassium Hgb O2 Saturation Glucose Lactate FiO2 Crit Value Called To Crit Value Called By Blood Gas Notified Time Sodium 142 Potassium 4.9 Chloride 99 Carbon Dioxide 27 Anion Gap 21 H BUN 124 H* Creatinine 9.3 H* Est GFR ( Amer) 7 Est GFR (Non-Af Amer) 6 Random Glucose 222 H Calcium 8.3 L Phosphorus 2.7 Magnesium 2.3 H Total Bilirubin 1.0 AST 160 H D ALT 55 Alkaline Phosphatase 71 Total Creatine Kinase CK-MB (CK-2) CK-MB (CK-2) % Troponin I C-React Prot High Sens NT-Pro-B Natriuret Pep Total Protein 6.3 Albumin 3.1 Globulin 3.2 Albumin/Globulin Ratio 1.0 L Arterial Blood Potassium Venous Blood Potassium Urine Color Urine Appearance Urine pH Ur Specific [place] Urine Protein Urine Glucose (UA) Urine Ketones Urine Blood Urine Nitrate Urine Bilirubin Urine Urobilinogen Ur Leukocyte Esterase Urine RBC Urine WBC Ur Epithelial Cells Urine Bacteria Hyaline Casts Coarse Granular Casts Ur Random Creatinine Ur Random Sodium Addendum Addendum: MICU Attending addendum Patient seen and examined with housestaff on 07/01 Agree with resident note above with the follow add/exceptions 52 year old male with past medical history of crohn's disease s/p colostomy, Susac syndrome, psoriasis, cerebral vasculitis with bilateral hearing loss who after being found on the floor for about 1-2 days now in acute renal failure. CT abd/pelvis shows incarcerated ventral hernia with partial SBO adjacent to colostomy. Patient will be evaluated for surgical intervention. Surg on consult. In the interim, will repeat chem,. His hyepK was treated in ED, Pain control. Fluid resuscitation. Monitor I/O. Insert Estrada. Follow cultures and start broad empiric abx as well vanc/zosyn/. f/u nephro recs for possbile HD FULL CODE Rest of care as per above resident note Curt Tyson MD MICU Attending CC Time 35 mins spent caring for patient, rounding with planning intern, discussing case with surg consultants and GI customer sales consultant and with family
--- NOTE | 2018-07-01 12:29 | US ---
Date of service: 07/01/2018 PROCEDURE: Ultrasound of the Kidneys HISTORY: new SETH COMPARISON: 02/13/2017. TECHNIQUE: Sonogram of the kidneys. FINDINGS: RIGHT KIDNEY: Measures: 5.5 x 11.0 cm. Normal in size, contour and echogenicity. No stone, solid mass lesion or hydronephrosis visualized. LEFT KIDNEY: Measures: 5.8 x 11.0 cm. Normal in size, contour and echogenicity. No stone, solid mass lesion or hydronephrosis visualized. OTHER FINDINGS: None. IMPRESSION: Unremarkable renal sonogram.No significant interval change compared to the prior examination(s).
--- NOTE | 2018-07-01 13:31 | CT ---
Date of service: 07/01/2018 PROCEDURE: CT Abdomen and Pelvis without intravenous contrast HISTORY: stoma w/ erythema noted COMPARISON: CT 02/02/2016 TECHNIQUE: Without contrast.. Contrast dose: Radiation dose: Total exam DLP = 1234.83 mGy-cm. This CT exam was performed using one or more of the following dose reduction techniques: Automated exposure control, adjustment of the mA and/or kV according to patient size, and/or use of iterative reconstruction technique. FINDINGS: LOWER THORAX: Unremarkable. LIVER: Unremarkable. No gross lesion or ductal dilatation. GALLBLADDER AND BILE DUCTS: Unremarkable. PANCREAS: Unremarkable. No gross lesion or ductal dilatation. SPLEEN: Unremarkable. ADRENALS: Unremarkable. No mass. KIDNEYS AND URETERS: Unremarkable. No hydronephrosis. No solid mass. VASCULATURE: Unremarkable. No aortic aneurysm. No aortic atherosclerotic calcification or mural plaque present. BOWEL: There is a ventral hernia to the left of midline adjacent to the left lower quadrant colostomy site. There is dilatation of small bowel loops proximal to the hernia as well as within the hernia itself. Findings are consistent with incarcerated hernia with partial small bowel obstruction. The dilated bowel loop within the hernia sac measures 7.7 cm in diameter. APPENDIX: Unremarkable. Normal appendix. PERITONEUM: Unremarkable. No free fluid. No free air. LYMPH NODES: Unremarkable. No enlarged lymph nodes. BLADDER: Unremarkable. REPRODUCTIVE: Unremarkable. BONES: No acute fracture. OTHER FINDINGS: None. IMPRESSION: There is a ventral hernia to the left of midline adjacent to the left lower quadrant colostomy site. There is dilatation of small bowel loops proximal to the hernia as well as within the hernia itself. Findings are consistent with incarcerated hernia with partial small bowel obstruction. The dilated bowel loop within the hernia sac measures 7.7 cm in diameter.
[2018-07-01 14:15] LABS: VENOUS BLOOD GAS BASE EXCESS -3.4 mmol/L (0.0-2.0); VENOUS BLOOD GAS PO2 78 mm/Hg (30-55); VENOUS BLOOD PH 7.37 (7.32-7.43)
[2018-07-01 14:25] LABS: BASO # 0.02 K/mm3 (0.0-2.0); BASO % 0.2 % (0.0-3.0); EOS % 0.1 % (1.5-5.0); LYMPH # 0.9 (1.2-3.4); LYMPH % 7.4 % (22.0-35.0); MEAN CELL VOLUME 90.5 fl (80.0-105.0); MEAN CORPUSCULAR HEMOGLOBIN 31.5 pg (25.0-35.0); MEAN CORPUSCULAR HGB CONC 34.8 g/dl (31.0-37.0); MEAN PLATELET VOLUME 10.9 fl (7.0-11.0); MONO % 7.7 % (1.0-6.0); RBC 4.44 10^6/uL (3.5-6.1); RED CELL DISTRIBUTION WIDTH 14.2 % (11.5-14.5); WHITE BLOOD COUNT 12.7 10^3/uL (4.5-11.0)
[2018-07-01 14:46] LABS: ALBUMIN 3.8 g/dL (3.0-4.8); CALCIUM 9.4 mg/dL (8.4-10.5)
[2018-07-01] MEDS ORDERED: Morphine 2 mg/ml ISec IVP STA (14:48)
[2018-07-01] MEDS: Piperacillin/Tazobact 3.375 gm 100 ML IVPB SCH ×2 (15:00→21:47)
[2018-07-01] MEDS ORDERED: Sodium Chloride 0.9% 1,000 ML IV SCH (15:30)
[2018-07-01 16:13] VITALS: BMI 32.8
[2018-07-01] MEDS ORDERED: Pneumococcal 23-Valent Vaccine IM ONE (16:13)
--- NOTE | 2018-07-01 17:21 | CP.PCM.CON ---
History of Present Illness - History of Present Illness History of Present Illness: General Surgery Consult Re: Incarcerated ventral hernia HPI: 52M presented to ED after being found down against the heater at home. Per sister, patient is currently disoriented but improved over when he was brought in. History taken from EMR and family. Patient does not remember anything of the last few days that he can relate, only that he was too weak to rise and call for help. Last known verbal contact with patient was evening, when patient stated on the phone that he was not feeling well and he had been vomiting. Br other saw bucket of dark brown emesis when found. Currently, pt denies pain but is grunting/moaning in pain every few minutes. Pt also denies fevers/chills, headaches, dizziness, chest pain, palpitations, shortness of breath, urinary symptoms, numbness/tingling but this may be unreliable. Pt is also hard of hearing. In ED he received Vancomycin x 1 dose, Cefepime x 1 dose, ~ 4 L NS. PMH: Crohn's disease, Susac syndrome, psoriasis, depression, cerebral angiitis, bilateral hearing loss, hypogammaglobulinemia PSH: Exlap c Colostomy x 2, Port in left upper arm SH: Former smoker, denies alcohol, tobacco use FH: Non contributory All: Rosario, luannspring soap Meds: Monthly IV gammaglobulin, Pentasa, Seroquel 200mg PO HS, Flomax 0.4mg PO daily, Kdur 20meq Qotherday, Lyrica 50mg PO BID, Pentasa 2 cap PO QID, Amitriptyline 10mg PO HS, Buproprion 150mg PO daily, Eliquis 2.5mg PO BID, Ergocalciferol 1 tab PO Q7D, Pepcid 20mg PO daily, Paxil 10mg PO daily Review of Systems - Review of Systems All systems: reviewed and no additional remarkable complaints except (as per HPI but pt is altered) 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) Other/Comment: slight speech impediment - RENAL Hx Chronic Kidney Disease: No - ENDOCRINE/METABOLIC Hx Endocrine Disorders: No - HEMATOLOGICAL/ONCOLOGICAL Hx Blood Transfusions: No Hx Blood Transfusion Reaction: No - INTEGUMENTARY Hx Dermatological Problems: Yes Hx Psoriasis: Yes - MUSCULOSKELETAL/RHEUMATOLOGICAL Hx Falls: Yes (found on floor today) - GASTROINTESTINAL Hx Gastrointestinal Disorders: Yes Hx Colostomy: Yes Hx Crohn's Disease: Yes (dx at 15 yrs old) Other/Comment: colostomy - GENITOURINARY/GYNECOLOGICAL Hx Genitourinary Disorders: No - PSYCHIATRIC Hx Substance Use: No - SURGICAL HISTORY Other/Comment: colostomy bag. abdominal sx - ANESTHESIA Hx Anesthesia Reactions: No Hx Malignant Hyperthermia: No Meds Allergies/Adverse Reactions: Allergies Allergy/AdvReac Type Severity Reaction Status Date / Time homeopathic substance (from Allergy Intermediate RASH Uncoded 07/01/18 08:44 Rosario) [facility] SOAP Allergy RASH Uncoded 07/01/18 08:44 - Medications Medications: Current Medications Famotidine (Pepcid) 20 mg IVP DAILY [facility]ANTINO Last Admin: 07/01/18 15:00 Dose: 20 mg Vancomycin HCl (Vancomycin 1gm) 1 gm in 250 mls @ 167 mls/hr IVPB DAILY SANTINO; Protocol Piperacillin Sod/Tazobactam Sod (Zosyn 3.375 In Ns 100ml) 100 mls @ 25 mls/hr IVPB Q8 SANTINO; Protocol Stop: 07/02/18 01:59 Last Admin: 07/01/18 15:00 Dose: 25 mls/hr Sodium Chloride (Sodium Chloride 0.9%) 1,000 mls @ 125 mls/hr IV .Q8H SANTINO Last Admin: 07/01/18 17:02 Dose: 125 mls/hr Morphine Sulfate (Morphine) 2 mg IVP Q4H PRN PRN Reason: Pain, severe (8-10) Physical Exam - Constitutional Appears: No Acute Distress, Confused - Head Exam Head Exam: ATRAUMATIC, NORMOCEPHALIC - Eye Exam Eye Exam: EOMI, PERRL. absent: Scleral icterus - ENT Exam ENT Exam: Mucous Membranes Dry Additional comments: trachea midline - Neck Exam Neck exam: Positive for: Full Rom. Negative for: Tenderness - Respiratory Exam Respiratory Exam: NORMAL BREATHING PATTERN. absent: Accessory Muscle Use, Respiratory Distress - Cardiovascular Exam Cardiovascular Exam: Tachycardia. absent: Bradycardia - GI/Abdominal Exam GI & Abdominal Exam: Hernia (bilateral ventral hernias), Soft, Tenderness (over hernia site). absent: Distended, Firm, Guarding, Rebound, Rigid Additional comments: Colostomy in place with minimal stool in bag L side non reducible ventral hernia with dark red erythema overlying the site. area is tender to plapation. Large midline scar - Rectal Exam Rectal Exam: Deferred - Extremities Exam Extremities exam: Positive for: normal capillary refill. Negative for: calf tenderness, pedal edema - Back Exam Back exam: absent: CVA tenderness (L), CVA tenderness (R) Additional comments: 2 areas of reddened skin, possibly from lying on/against radiator - Neurological Exam Neurological exam: Alert, Altered - Skin Skin Exam: Dry, Intact Results - Vital Signs Recent Vital Signs: Last Vital Signs Temp 99.7 F H 07/01/18 15:11 Pulse 118 H 07/01/18 15:43 Resp 16 07/01/18 15:43 BP 162/85 H 07/01/18 15:00 Pulse Ox 100 07/01/18 15:11 - Labs Result Diagrams: 07/01/18 14:00 07/01/18 14:00 Labs: Laboratory Results - last 24 hr 07/01/18 07/01/18 07/01/18 08:50 08:50 08:50 WBC 16.9 H RBC 4.93 Hgb 15.6 D Hct 44.9 MCV 91.1 MCH 31.6 MCHC 34.7 RDW 14.1 Plt Count 232 MPV 11.1 H Neut % (Auto) 83.8 H Lymph % (Auto) 5.3 L [place] % (Auto) 10.6 H Eos % (Auto) 0.1 L Baso % (Auto) 0.2 Lymph # (Auto) 0.9 L [place] # (Auto) 1.8 H Eos # (Auto) 0.0 Baso # (Auto) 0.03 Absolute Neuts (auto) 14.15 H PT 18.2 H INR 1.61 APTT 52.2 H pO2 VBG pH VBG pCO2 VBG HCO3 VBG Total CO2 VBG O2 Sat (Calc) VBG Base Excess VBG Potassium Glucose Lactate FiO2 Crit Value Called To Crit Value Called By Blood Gas Notified Time Sodium 138 Potassium 6.9 H* D Chloride 96 L Carbon Dioxide 18 L Anion Gap 31 H BUN 101 H Creatinine 9.4 H* D Est GFR ( Amer) 7 Est GFR (Non-Af Amer) 6 Random Glucose 131 H Calcium 10.2 Phosphorus 2.7 Magnesium 2.1 Total Bilirubin 1.8 H AST 213 H D ALT 60 H Alkaline Phosphatase 103 Total Creatine Kinase 7222 H CK-MB (CK-2) 91.2 H CK-MB (CK-2) % 1.3 L Troponin I 0.16 H* D C-React Prot High Sens NT-Pro-B Natriuret Pep 6170 H Total Protein 8.7 H Albumin 4.4 Globulin 4.3 Albumin/Globulin Ratio 1.0 L Venous Blood Potassium 07/01/18 07/01/18 07/01/18 08:50 09:10 14:00 WBC RBC Hgb Hct MCV MCH MCHC RDW Plt Count MPV Neut % (Auto) Lymph % (Auto) [place] % (Auto) Eos % (Auto) Baso % (Auto) Lymph # (Auto) [place] # (Auto) Eos # (Auto) Baso # (Auto) Absolute Neuts (auto) PT INR APTT pO2 53 78 H VBG pH 7.31 L 7.37 VBG pCO2 36.0 L 37.0 L VBG HCO3 18.1 L 21.4 VBG Total CO2 19.2 L 22.5 VBG O2 Sat (Calc) 86.5 H 96.7 H VBG Base Excess -7.4 L -3.4 L VBG Potassium 6.9 H* 5.4 H Glucose 123 H 150 H Lactate 3.6 H 2.6 H FiO2 21.0 21.0 Crit Value Called To Steffanie estrella chief crna Crit Value Called By Adri Rush Blood Gas Notified Time 922 1415 Sodium 132.0 134.0 Potassium Chloride 96.0 L 100.0 Carbon Dioxide Anion Gap BUN Creatinine Est GFR ( Amer) Est GFR (Non-Af Amer) Random Glucose Calcium Phosphorus Magnesium Total Bilirubin AST ALT Alkaline Phosphatase Total Creatine Kinase CK-MB (CK-2) CK-MB (CK-2) % Troponin I C-React Prot High Sens > 15.00 H NT-Pro-B Natriuret Pep Total Protein Albumin Globulin Albumin/Globulin Ratio Venous Blood Potassium 6.9 H* 5.4 H 07/01/18 07/01/18 14:00 14:00 WBC 12.7 H D RBC 4.44 Hgb 14.0 Hct 40.2 L MCV 90.5 MCH 31.5 MCHC 34.8 RDW 14.2 Plt Count 206 MPV 10.9 Neut % (Auto) 84.6 H Lymph % (Auto) 7.4 L [place] % (Auto) 7.7 H Eos % (Auto) 0.1 L Baso % (Auto) 0.2 Lymph # (Auto) 0.9 L [place] # (Auto) 1.0 H Eos # (Auto) 0.0 Baso # (Auto) 0.02 Absolute Neuts (auto) 10.74 H PT INR APTT pO2 VBG pH VBG pCO2 VBG HCO3 VBG Total CO2 VBG O2 Sat (Calc) VBG Base Excess VBG Potassium Glucose Lactate FiO2 Crit Value Called To Crit Value Called By Blood Gas Notified Time Sodium 139 Potassium 5.5 H Chloride 99 Carbon Dioxide 23 Anion Gap 24 H BUN 113 H Creatinine 9.1 H* Est GFR ( Amer) 7 Est GFR (Non-Af Amer) 6 Random Glucose 153 H Calcium 9.4 Phosphorus 2.4 L Magnesium 2.1 Total Bilirubin 1.1 AST 241 H ALT 67 H Alkaline Phosphatase 91 Total Creatine Kinase CK-MB (CK-2) CK-MB (CK-2) % Troponin I C-React Prot High Sens NT-Pro-B Natriuret Pep Total Protein 7.6 Albumin 3.8 Globulin 3.8 Albumin/Globulin Ratio 1.0 L Venous Blood Potassium - Imaging and Cardiology CT scan - abdomen Status: Image reviewed by me, Report reviewed by me US - Renal Status: Image reviewed by me, Report reviewed by me Assessment & Plan - Assessment and Plan (Free Text) Assessment: 52M with incarcerated ventral hernia, crohns disease, Susac syndrome Plan: NPO Continue IVF resuscitation for kidneys Strict I&Os Monitor lactate, trend Check myoglobin level for rhabdomyolysis Abx per Medical team Monitor Troponins D/W Dr. Bipin Shook PGY4
[2018-07-01 17:46] LABS: ARTERIAL BLOOD GAS HCO3 19.4 mmol/L (21-28); ARTERIAL BLOOD GAS O2 SAT 98.4 % (95-98); ARTERIAL BLOOD GAS PCO2 32 mm/Hg (35-45); ARTERIAL BLOOD GAS PH 7.39 (7.35-7.45); ARTERIAL BLOOD GAS TCO2 20.4 mmol.L (22-28)
[2018-07-01 18:45] LABS: VENOUS BLOOD GAS BASE EXCESS -4.9 mmol/L (0.0-2.0); VENOUS BLOOD GAS PO2 85 mm/Hg (30-55); VENOUS BLOOD PH 7.33 (7.32-7.43)
[2018-07-01 19:01] LABS: URINE BILIRUBIN MODERATE (NEGATIVE); URINE BLOOD LARGE (NEGATIVE); URINE GLUCOSE (UA) NEGATIVE (NEGATIVE); URINE LEUKOCYTE ESTERASE NEGATIVE Leu/uL (NEGATIVE); URINE PROTEIN >=300 mg/dL (<30 mg/dL); URINE UROBILINOGEN 0.2 E.U./dL (<1 E.U./dL)
[2018-07-01 19:02] LABS: URINE APPEARANCE SLIGHT-CLOUDY (CLEAR); URINE COLOR DARK YELLOW (YELLOW)
[2018-07-01 19:02] LABS: TROPONIN I 0.1 ng/mL
[2018-07-01 19:11] LABS: URINE BACTERIA FEW /hpf; URINE HYALINE CAST 0 - 2 /hpf; URINE WBC 0 - 2 /hpf (0-6)
[2018-07-01 19:12] LABS: CALCIUM 9.1 mg/dL (8.4-10.5)
[2018-07-01 19:12] LABS: URINE COARSE GRANULAR CAST TRACE /hpf
[2018-07-01] MEDS: Morphine 2 mg/ml ISec IVP PRN (20:44)
[2018-07-01 22:35] LABS: TROPONIN I 0.09 ng/mL
[2018-07-01] MEDS ORDERED: Albuterol 0.083% Inhal Sol (2.5 mg/3 mL) UD IH STA (22:36)
[2018-07-01] MEDS ORDERED: Sodium Bicarbonate (8.4%) 50 Meq Syringe IVP STA (22:38)
[2018-07-01] MEDS ORDERED: Insulin Regular 1 UNITS/0.01 ML ML IVP STA (22:39)
[2018-07-01 22:52] LABS: CALCIUM 8.9 mg/dL (8.4-10.5)
--- NOTE | 2018-07-01 23:25 | CP.PCM.CON ---
History of Present Illness - History of Present Illness History of Present Illness: This 52-year-old patient with a past medical history of Soucek syndrome, Crohn's disease and only on Pentasa status post sigmoid colon resection small bowel resection status post colostomy was brought to the hospital for altered mental status. Patient was found to be in acute renal failure. Patient also was complaining of abdominal pain. Large ventral hernia present. GI consult was requested to evaluate Review of Systems - Constitutional Constitutional: As Per HPI, Fatigue, Lethargy - EENT Ears: Decreased Hearing Nose/Mouth/Throat: absent: Epistaxis, Nasal Discharge, Dysphagia - Cardiovascular Cardiovascular: Dyspnea. absent: Chest Pain - Respiratory Respiratory: Dyspnea on Exertion. absent: Cough, Stridor - Gastrointestinal Gastrointestinal: Abdominal Pain. absent: Cramping - Genitourinary Genitourinary: absent: Dysuria, Hematuria - Musculoskeletal Musculoskeletal: absent: Abnormal Gait Additional comments: Walks with a walker - Neurological Neurological: Abnormal Hearing Additional comments: History of susac syndrome - Hematologic/Lymphatic Hematologic: As Per HPI. 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) Other/Comment: slight speech impediment - RENAL Hx Chronic Kidney Disease: No - ENDOCRINE/METABOLIC Hx Endocrine Disorders: No - HEMATOLOGICAL/ONCOLOGICAL Hx Blood Transfusions: No Hx Blood Transfusion Reaction: No - INTEGUMENTARY Hx Dermatological Problems: Yes Hx Psoriasis: Yes - MUSCULOSKELETAL/RHEUMATOLOGICAL Hx Falls: Yes (found on floor today) - GASTROINTESTINAL Hx Gastrointestinal Disorders: Yes Hx Colostomy: Yes Hx Crohn's Disease: Yes (dx at 15 yrs old) Other/Comment: colostomy - GENITOURINARY/GYNECOLOGICAL Hx Genitourinary Disorders: No - PSYCHIATRIC Hx Substance Use: No - SURGICAL HISTORY Other/Comment: colostomy bag. abdominal sx - ANESTHESIA Hx Anesthesia Reactions: No Hx Malignant Hyperthermia: No Meds Allergies/Adverse Reactions: Allergies Allergy/AdvReac Type Severity Reaction Status Date / Time homeopathic substance (from Allergy Intermediate RASH Uncoded 07/01/18 08:44 Rosario) [facility] SOAP Allergy RASH Uncoded 07/01/18 08:44 - Medications Medications: Current Medications Famotidine (Pepcid) 20 mg IVP DAILY [facility] Last Admin: 07/01/18 15:00 Dose: 20 mg Sodium Chloride (Sodium Chloride 0.9%) 1,000 mls @ 125 mls/hr IV .Q8H [facility] Last Admin: 07/01/18 17:02 Dose: 125 mls/hr Piperacillin Sod/Tazobactam Sod (Zosyn 3.375 In Ns 100ml) 100 mls @ 25 mls/hr IVPB Q12 SANTINO; Protocol Stop: 07/11/18 10:01 Morphine Sulfate (Morphine) 2 mg IVP Q4H PRN PRN Reason: Pain, severe (8-10) Last Admin: 07/01/18 20:44 Dose: 2 mg Physical Exam - Head Exam Head Exam: ATRAUMATIC, NORMOCEPHALIC - Eye Exam Eye Exam: absent: Conjunctival injection, Scleral icterus Pupil Exam: PERRL - ENT Exam ENT Exam: Mucous Membranes Moist - Neck Exam Neck exam: Positive for: Full Rom. Negative for: Lymphadenopathy - Respiratory Exam Respiratory Exam: Clear to Auscultation Bilateral, NORMAL BREATHING PATTERN. absent: Accessory Muscle Use, Respiratory Distress - Cardiovascular Exam Cardiovascular Exam: +S1, +S2. absent: JVD - GI/Abdominal Exam Additional comments: Colostomy present. There is a large ventral hernia the skin over the hernia was erythematous Distended abdomen Diffuse tenderness No rebound - Neurological Exam Neurological exam: Abnormal Gait, Alert, Oriented x3 - Psychiatric Exam Psychiatric exam: Anxious, Depressed Results - Vital Signs Recent Vital Signs: Last Vital Signs Temp 99.3 F 07/01/18 18:40 Pulse 114 H 07/01/18 18:40 Resp 31 H 07/01/18 18:40 BP 156/70 H 07/01/18 18:30 Pulse Ox 96 07/01/18 18:40 - Labs Result Diagrams: 07/05/18 06:00 07/05/18 06:00 Labs: Laboratory Results - last 24 hr 07/01/18 07/01/18 07/01/18 08:50 08:50 08:50 WBC 16.9 H RBC 4.93 Hgb 15.6 D Hct 44.9 MCV 91.1 MCH 31.6 MCHC 34.7 RDW 14.1 Plt Count 232 MPV 11.1 H Neut % (Auto) 83.8 H Lymph % (Auto) 5.3 L [place] % (Auto) 10.6 H Eos % (Auto) 0.1 L Baso % (Auto) 0.2 Lymph # (Auto) 0.9 L [place] # (Auto) 1.8 H Eos # (Auto) 0.0 Baso # (Auto) 0.03 Absolute Neuts (auto) 14.15 H PT 18.2 H INR 1.61 APTT 52.2 H pCO2 pO2 HCO3 ABG pH ABG Total CO2 ABG O2 Saturation ABG Base Excess ABG Potassium VBG pH VBG pCO2 VBG HCO3 VBG Total CO2 VBG O2 Sat (Calc) VBG Base Excess VBG Potassium Glucose Lactate FiO2 Crit Value Called To Crit Value Called By Blood Gas Notified Time Sodium 138 Potassium 6.9 H* D Chloride 96 L Carbon Dioxide 18 L Anion Gap 31 H BUN 101 H Creatinine 9.4 H* D Est GFR ( Amer) 7 Est GFR (Non-Af Amer) 6 Random Glucose 131 H Calcium 10.2 Phosphorus 2.7 Magnesium 2.1 Total Bilirubin 1.8 H AST 213 H D ALT 60 H Alkaline Phosphatase 103 Total Creatine Kinase 7222 H CK-MB (CK-2) 91.2 H CK-MB (CK-2) % 1.3 L Troponin I 0.16 H* D C-React Prot High Sens NT-Pro-B Natriuret Pep 6170 H Total Protein 8.7 H Albumin 4.4 Globulin 4.3 Albumin/Globulin Ratio 1.0 L Arterial Blood Potassium Venous Blood Potassium Urine Color Urine Appearance Urine pH Ur Specific [place] Urine Protein Urine Glucose (UA) Urine Ketones Urine Blood Urine Nitrate Urine Bilirubin Urine Urobilinogen Ur Leukocyte Esterase Urine RBC Urine WBC Ur Epithelial Cells Urine Bacteria Hyaline Casts Coarse Granular Casts 07/01/18 07/01/18 07/01/18 08:50 09:10 14:00 WBC RBC Hgb Hct MCV MCH MCHC RDW Plt Count MPV Neut % (Auto) Lymph % (Auto) [place] % (Auto) Eos % (Auto) Baso % (Auto) Lymph # (Auto) [place] # (Auto) Eos # (Auto) Baso # (Auto) Absolute Neuts (auto) PT INR APTT pCO2 pO2 53 78 H HCO3 ABG pH ABG Total CO2 ABG O2 Saturation ABG Base Excess ABG Potassium VBG pH 7.31 L 7.37 VBG pCO2 36.0 L 37.0 L VBG HCO3 18.1 L 21.4 VBG Total CO2 19.2 L 22.5 VBG O2 Sat (Calc) 86.5 H 96.7 H VBG Base Excess -7.4 L -3.4 L VBG Potassium 6.9 H* 5.4 H Glucose 123 H 150 H Lactate 3.6 H 2.6 H FiO2 21.0 21.0 Crit Value Called To Steffanie estrella rn ccu Crit Value Called By Adri Rush Blood Gas Notified Time 922 1415 Sodium 132.0 134.0 Potassium Chloride 96.0 L 100.0 Carbon Dioxide Anion Gap BUN Creatinine Est GFR ( Amer) Est GFR (Non-Af Amer) Random Glucose Calcium Phosphorus Magnesium Total Bilirubin AST ALT Alkaline Phosphatase Total Creatine Kinase CK-MB (CK-2) CK-MB (CK-2) % Troponin I C-React Prot High Sens > 15.00 H NT-Pro-B Natriuret Pep Total Protein Albumin Globulin Albumin/Globulin Ratio Arterial Blood Potassium Venous Blood Potassium 6.9 H* 5.4 H Urine Color Urine Appearance Urine pH Ur Specific [place] Urine Protein Urine Glucose (UA) Urine Ketones Urine Blood Urine Nitrate Urine Bilirubin Urine Urobilinogen Ur Leukocyte Esterase Urine RBC Urine WBC Ur Epithelial Cells Urine Bacteria Hyaline Casts Coarse Granular Casts 07/01/18 07/01/18 07/01/18 14:00 14:00 17:40 WBC 12.7 H D RBC 4.44 Hgb 14.0 Hct 40.2 L MCV 90.5 MCH 31.5 MCHC 34.8 RDW 14.2 Plt Count 206 MPV 10.9 Neut % (Auto) 84.6 H Lymph % (Auto) 7.4 L [place] % (Auto) 7.7 H Eos % (Auto) 0.1 L Baso % (Auto) 0.2 Lymph # (Auto) 0.9 L [place] # (Auto) 1.0 H Eos # (Auto) 0.0 Baso # (Auto) 0.02 Absolute Neuts (auto) 10.74 H PT INR APTT pCO2 32 L pO2 93.0 HCO3 19.4 L ABG pH 7.39 ABG Total CO2 20.4 L ABG O2 Saturation 98.4 H ABG Base Excess -4.6 L ABG Potassium 5.4 H VBG pH VBG pCO2 VBG HCO3 VBG Total CO2 VBG O2 Sat (Calc) VBG Base Excess VBG Potassium Glucose 111 H Lactate 1.7 FiO2 30.0 Crit Value Called To Crit Value Called By Blood Gas Notified Time Sodium 139 136.0 Potassium 5.5 H Chloride 99 105.0 Carbon Dioxide 23 Anion Gap 24 H BUN 113 H Creatinine 9.1 H* Est GFR ( Amer) 7 Est GFR (Non-Af Amer) 6 Random Glucose 153 H Calcium 9.4 Phosphorus 2.4 L Magnesium 2.1 Total Bilirubin 1.1 AST 241 H ALT 67 H Alkaline Phosphatase 91 Total Creatine Kinase CK-MB (CK-2) CK-MB (CK-2) % Troponin I C-React Prot High Sens NT-Pro-B Natriuret Pep Total Protein 7.6 Albumin 3.8 Globulin 3.8 Albumin/Globulin Ratio 1.0 L Arterial Blood Potassium 5.4 H Venous Blood Potassium Urine Color Urine Appearance Urine pH Ur Specific [place] Urine Protein Urine Glucose (UA) Urine Ketones Urine Blood Urine Nitrate Urine Bilirubin Urine Urobilinogen Ur Leukocyte Esterase Urine RBC Urine WBC Ur Epithelial Cells Urine Bacteria Hyaline Casts Coarse Granular Casts 07/01/18 07/01/18 07/01/18 18:20 18:20 18:20 WBC RBC Hgb Hct MCV MCH MCHC RDW Plt Count MPV Neut % (Auto) Lymph % (Auto) [place] % (Auto) Eos % (Auto) Baso % (Auto) Lymph # (Auto) [place] # (Auto) Eos # (Auto) Baso # (Auto) Absolute Neuts (auto) PT INR APTT pCO2 pO2 85 H HCO3 ABG pH ABG Total CO2 ABG O2 Saturation ABG Base Excess ABG Potassium VBG pH 7.33 VBG pCO2 39.0 L VBG HCO3 20.6 L VBG Total CO2 21.8 L VBG O2 Sat (Calc) 97.5 H VBG Base Excess -4.9 L VBG Potassium 5.8 H Glucose 115 H Lactate 1.9 FiO2 21.0 Crit Value Called To Crit Value Called By Blood Gas Notified Time Sodium Cancelled 140 136.0 Potassium Cancelled 5.9 H* Chloride Cancelled 100 102.0 Carbon Dioxide Cancelled 21 Anion Gap Cancelled 25 H BUN Cancelled 114 H Creatinine 9.0 H* Est GFR ( Amer) Cancelled 7 Est GFR (Non-Af Amer) Cancelled 6 Random Glucose Cancelled 119 H Calcium Cancelled 9.1 Phosphorus Magnesium Total Bilirubin Cancelled AST Cancelled ALT Cancelled Alkaline Phosphatase Cancelled Total Creatine Kinase 8615 H CK-MB (CK-2) 85.0 H CK-MB (CK-2) % 1.0 L Troponin I 0.10 D C-React Prot High Sens NT-Pro-B Natriuret Pep Total Protein Cancelled Albumin Cancelled Globulin Cancelled Albumin/Globulin Ratio Cancelled Arterial Blood Potassium Venous Blood Potassium 5.8 H Urine Color Urine Appearance Urine pH Ur Specific [place] Urine Protein Urine Glucose (UA) Urine Ketones Urine Blood Urine Nitrate Urine Bilirubin Urine Urobilinogen Ur Leukocyte Esterase Urine RBC Urine WBC Ur Epithelial Cells Urine Bacteria Hyaline Casts Coarse Granular Casts 07/01/18 07/01/18 18:40 22:00 WBC RBC Hgb Hct MCV MCH MCHC RDW Plt Count MPV Neut % (Auto) Lymph % (Auto) [place] % (Auto) Eos % (Auto) Baso % (Auto) Lymph # (Auto) [place] # (Auto) Eos # (Auto) Baso # (Auto) Absolute Neuts (auto) PT INR APTT pCO2 pO2 HCO3 ABG pH ABG Total CO2 ABG O2 Saturation ABG Base Excess ABG Potassium VBG pH VBG pCO2 VBG HCO3 VBG Total CO2 VBG O2 Sat (Calc) VBG Base Excess VBG Potassium Glucose Lactate FiO2 Crit Value Called To Crit Value Called By Blood Gas Notified Time Sodium 140 Potassium 6.2 H* Chloride 103 Carbon Dioxide 20 L Anion Gap 23 H BUN 118 H Creatinine 9.3 H* Est GFR ( Amer) 7 Est GFR (Non-Af Amer) 6 Random Glucose 126 H Calcium 8.9 Phosphorus Magnesium Total Bilirubin AST ALT Alkaline Phosphatase Total Creatine Kinase CK-MB (CK-2) CK-MB (CK-2) % Troponin I 0.09 C-React Prot High Sens NT-Pro-B Natriuret Pep Total Protein Albumin Globulin Albumin/Globulin Ratio Arterial Blood Potassium Venous Blood Potassium Urine Color Dark yellow Urine Appearance Slight-cloudy Urine pH 6.0 Ur Specific [place] 1.025 Urine Protein >=300 H Urine Glucose (UA) Negative Urine Ketones Negative Urine Blood Large H Urine Nitrate Negative Urine Bilirubin Moderate H Urine Urobilinogen 0.2 Ur Leukocyte Esterase Negative Urine RBC 5 - 10 H Urine WBC 0 - 2 Ur Epithelial Cells None Urine Bacteria Few Hyaline Casts 0 - 2 Coarse Granular Casts Trace Assessment & Plan - Assessment and Plan (Free Text) Assessment: Ventral hernia obstructed/incarcerated Skin over the hernia erythematous Patient diffusely tender Obstructed ventral hernia 2. Crohn's disease status post laparotomy x2 significant intra-abdominal adhesions 3. Soucek syndrome 4. Plan: Discussed network security analyst and ICU nursing staff. Continue the fluid and antibiotics Patient would need a surgical intervention Surgical follow-up
[2018-07-02] MEDS: Sodium Bicarbonate 8.4% 100 MEQ in Dextrose 5% In Water 1,000 ML IV SCH ×4 (00:30→23:20)
[2018-07-02 02:46] LABS: CALCIUM 8.7 mg/dL (8.4-10.5)
[2018-07-02] MEDS ORDERED: Albuterol 0.083% Inhal Sol (2.5 mg/3 mL) UD IH STA (03:17)
[2018-07-02] MEDS ORDERED: Sodium Bicarbonate (8.4%) 50 Meq Syringe IVP STA (03:17)
[2018-07-02] MEDS ORDERED: Dextrose 50% SYRINGE Inj (50 ml) IVP STA (03:18)
[2018-07-02] MEDS ORDERED: Insulin Regular 1 UNITS/0.01 ML ML IVP STA (03:19)
--- NOTE | 2018-07-02 04:05 | CON ---
DATE: 07/01/2018 CONSULTATION The patient admitted for Dr. Sergio López. REFERRING MD: Dr. Hackett and Dr. López. REASON FOR CONSULTATION: Evaluation of a patient unknown to me who presents with acute renal failure, hyperkalemia, acute rhabdomyolysis. HISTORY OF PRESENT ILLNESS: The patient is a 52-year-old white male with a history of Crohn's disease status post left lower quadrant colostomy. He is status post partial bowel resection. History of Susac syndrome, history of hypogammaglobulinemia, history of cerebral vasculitis, history of hearing loss, history of psoriasis, history of depression. The patient apparently fell at home 2 days prior to being discovered by a family member and he was brought into the hospital. In the hospital, he was noted to be in acute renal failure with a BUN of 101 and a creatinine of 9.4. Previously, he had normal BUN and creatinine levels. His initial K was 6.9. He received multiple medications to lower his potassium level; his potassium level had dropped as low as 5.5, and it is currently 6.2. His initial CO2 level was 18, it went high as 23; it is currently 20. His last BUN was 118 with a creatinine of 9.3. The patient is making urine. He was started on IV fluid hydration. His CPK level was elevated at 8,615 with negative troponins. The patient had tenderness in his abdomen with a distended abdomen. A CT scan was done which showed an incarcerated hernia with partial small-bowel obstruction. The patient is currently in ICU, bed #2. He is on IV antibiotic therapy. He is on IV fluid hydration. He had been evaluated by surgery. We were asked to evaluate the patient for his acute renal failure, hyperkalemia, and metabolic acidosis. PAST MEDICAL HISTORY: Significant for Crohn's disease status post left lower quadrant colostomy with a partial bowel obstruction, history of Susac syndrome, history of hypogammaglobulinemia, history of cerebral vasculitis, hearing loss, psoriasis, depression. No past history of chronic kidney disease. MEDICATIONS AT HOME: Include that of Flomax, Seroquel, Lyrica, potassium tablets, Paxil, omeprazole, Pentasa, Pepcid, vitamin D, Wellbutrin, and Elavil. ALLERGIES: HE IS ALLERGIC TO HOMEOPATHIC SUBSTANCE FROM [employer] AND [employer] SPRING SOAP. NO KNOWN ALLERGIES TO MEDICATIONS, OTHERWISE. CURRENT MEDICATIONS: In hospital, include that of morphine, Pepcid, normal saline 125 mL an hour, and Zosyn. SOCIAL HISTORY: A past history of cigarette smoking. He no longer smokes. He does not drink alcohol. No history of substance abuse. FAMILY HISTORY: Positive for breast cancer in his mother. His father had peripheral vascular disease with an aneurysm, diabetes, and heart disease. REVIEW OF SYSTEMS: Is very difficult to obtain from the patient as he is hard of hearing and is speaking in one-word answers. PHYSICAL EXAMINATION: GENERAL: The patient is currently in ICU bed #2. VITAL SIGNS: Blood pressure is 156/70, pulse is 114 with sinus tachycardia on the monitor, temperature is 99.3 with a respiratory rate ranging from 18-31. Pulse ox is 96%. HEENT: Exam shows him to be normocephalic, atraumatic. Conjunctivae are pink. Sclerae are nonicteric. Pupils appear equally reactive to light and accommodation. Extraocular muscles are intact. NECK: Supple. No neck vein distention, no thyromegaly, no lymphadenopathy, no bruits. CHEST: Clear to auscultation and percussion. No rales, rhonchi, or wheezing. CARDIOVASCULAR: Shows a regular rate and rhythm with no audible murmurs, rubs, or gallops. ABDOMEN: Shows a distended abdomen with a left lower quadrant colostomy with erythema and tenderness adjacent to the colostomy area. He has non-reducible ventral wall hernias. He has tenderness on palpation; he has guarding and mild rebound. BACK: No CVAT. No spinal tenderness. EXTREMITIES: Show no lower extremity cyanosis, clubbing, or edema. Distal lower extremity pulses are 1 to 2+ bilaterally. NEUROLOGICAL: Exam is difficult to assess. He does answer appropriately in one- or two-word answers. LABORATORY DATA AND IMAGING: Imaging Studies: Admitting chest x-ray showed no acute pulmonary disease. Admitting renal ultrasound showed two normal-sized kidneys. Admitting abdominal CT scan showed a ventral wall hernia to the left of the midline. He has an incarcerated hernia with partial small-bowel obstruction and again normal kidneys. Admitting EKG showed a sinus tachycardia with no peaking of T-waves. Laboratory Data: CBC: White blood cell count 16.9 on admission, currently 12.7. Hemoglobin down from 15.6 to 14. Platelet count is 206,000. Coags show an elevated PT and an elevated PTT. The patient has had multiple blood gases. Admitting blood gas showed a pH of 7.31 with a pCO2 of 36 and a pO2 of 86.5 with a lactic acid of 3.6. Blood gas done at 6:20 p.m. on 07/01 showed a pH of 7.33 and a pO2 of 85, a pCO2 of 39 with a calculated bicarbonate of 21 and a lactic acid which has dropped to 1.9 on an FiO2 of 21%. Chemistries: Initial chemistry showed a sodium of 138, potassium of 6.9, BUN 101 with a creatinine of 9.4. CPK was elevated at 7,222. Mild elevation of troponin at 0.16. CO2 level initially was 18. Most recent chemistries at 10 p.m. on 07/01/2018 showed a potassium of 6.2, BUN 118, with a creatinine of 9.3. Glucose 126. Calcium was 9.4, phosphorus 2.4, magnesium 2.1. Mild elevation of his liver enzymes with a normal bilirubin. Urine showed 4+ protein, large blood, 5-10 red blood cells per high-power field, 0 to 2 white blood cells per high-power field, a bit of hyaline casts and coarse granular casts noted. Microbiology, all cultures are pending. ASSESSMENT: 1. Acute renal failure with life-threatening hyperkalemia and mild metabolic acidosis. This is in the setting of the patient having had no prior history of chronic kidney disease in early 06/2018. On 06/22/2018, his blood urea nitrogen was 10 with a creatinine of 0.8. Likely etiologies were that of volume depletion, dehydration, acute tubular necrosis, and acute rhabdomyolysis, sepsis, with an incarcerated hernia. The patient is currently being treated with IV fluid hydration and IV antibiotic therapy. He was evaluated by surgery. His imaging studies show no evidence for obstructive uropathy. He had a Estrada catheter placed and is currently making urine. 2. Crohn's disease status post left lower quadrant colostomy with a partial bowel resection with multiple abdominal wall hernias. The patient has an incarcerated hernia. He quite possibly is a surgical candidate as he has a partial small-bowel obstruction. He again had been evaluated by surgery and for this evening, he is being treated with IV antibiotics and IV fluid hydration. 3. 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 4. History of hypogammaglobulinemia. 5. History of psoriasis. 6. History of depression, on multiple medications. 7. Acute rhabdomyolysis with a fall approximately two days prior to admission; hence, the patient was on the floor, not moving for 2 days. CPK values are elevated and now need to be followed serially. PLAN: 1. I discussed with staff in the ICU. I will change his IV fluid over to IV fluid with sodium bicarbonate and this will bring his CO2 level up and perhaps allow his potassium level to fall into an acceptable range. 2. Encouraged by the fact that the patient is making urine, I hope to see a fall in BUN and creatinine with the morning labs. 3. If the patient's BUN and creatinine remain elevated and hyperkalemia becomes difficult to control, the patient might be a candidate for acute dialysis. This was discussed with the ICU staff. This was not fully discussed with the patient at this time. 4. We will obtain urine sodium, urine creatinine, urine David stain. 5. Obtain serial CPK levels as the patient has acute rhabdomyolysis. 6. Await input from surgical attending regarding the possibility of surgery for his incarcerated hernia. The abdominal CT scan did not show any free air. 7. Monitor the patient closely in the ICU. 8. Accurate I's and O's. 9. Daily labs. 10. Empiric antibiotic therapy with an ID consultation. 11. Cardiac evaluation for his borderline elevations of troponin level and his SVT. Greater than 35 minutes spent in the care of this critically ill patient. Andrew Gutierrez MD [facility]
[2018-07-02 04:27] LABS: CREATININE,RANDOM URINE 74 mg/dL
[2018-07-02] MEDS: Morphine 2 mg/ml ISec IVP PRN (04:33)
--- NOTE | 2018-07-02 04:36 | HP ---
DATE OF EXAM: 07/01/2018 LOCATION: Patient is in ICU CCU 129, bed 2. HISTORY OF PRESENT ILLNESS: This is a 56-year-old male who was admitted through the emergency room with progressive deterioration at home, found to have probably fallen at home, was disoriented. The last documented call that the patient probably made was on evening when he spoke to his sister. The patient apparently was not feeling well and brother had found him at home with a lot of coffee-ground emesis by the side on the floor as the patient was lying. The patient was brought over and prompted to the emergency room. Patient has a history of Crohn's disease, history of psoriasis. Patient has history of small bowel perforation secondary to Crohn's disease for which he had extensive small bowel resection and underwent a colostomy about 8 years ago. Patient has history of Susac syndrome (cerebral angiitis) for which he has been getting IV gammaglobulin once every 6 weeks. Patient has bilateral hearing loss and depression and as mentioned was found on the ground by his brother and brother brought him to the emergency room. Patient had been stating that on the phone that he was not feeling well. Denies fevers, chills, headache, dizziness, chest pain, palpitations, shortness of breath, urinary symptoms, numbness, or tingling. Patient's last gammaglobulin was less than 10 days ago as an outpatient in the office. Patient ambulates using a walker. He is hard of hearing and uses hearing aids. Patient was afebrile, but tachycardic with an elevated white count. Patient was seen in the ER, code sepsis was called. He was started on IV fluids, received 4 L of normal saline, received vancomycin one dose and cefepime one dose. REVIEW OF SYSTEMS: A 12-system review was done, patient's mental state is altered, so no new addition to the review of system except for what is mentioned in the HPI. ALLERGIES: PATIENT HAS NO SIGNIFICANT ALLERGY EXCEPT FOR PEREZ AND [employer] SPRING SOAP. MEDICATIONS: Include monthly IV gammaglobulin which has not now been spaced out every 2 months. He is Pentasa for his Crohn's. He is on Seroquel 200 at bedtime, Flomax 0.4 mg p.o. daily, K-Dur 20 mEq every other day, Lyrica for neuropathy 50 mg p.o. b.i.d. He is on amitriptyline 10 mg p.o. at bedtime. He is on bupropion 150 mg p.o. daily. He is on Eliquis 2.5 mg p.o. b.i.d. for hypercoagulable state and DVT in the past. He is on ergocalciferol one tablet p.o. every 7 days, Pepcid 20 mg daily, and Paxil 10 mg daily. PAST MEDICAL HISTORY: As mentioned above is significant for Crohn's disease, Susac syndrome, psoriasis, depression, cerebral angiitis, bilateral hearing loss. Patient has been on IV gammaglobulin on monthly to every 6 weeks basis for the past 17 years. He has also B12 deficient for which he gets intermittent B12 injections and periodic iron infusions and terminal ileum was resected and he has defective iron absorption as well. Patient has a history of colostomy x2 and he has had several episodes of sepsis which is secondary to infected ports which had been removed in the past and now has a port in the left upper arm. SOCIAL HISTORY: The patient is a former smoker. Patient does not have any tobacco or alcohol use. FAMILY HISTORY: Mother had breast cancer and father had aneurysm, diabetes mellitus, and heart disease. PHYSICAL EXAMINATION: GENERAL: Patient appears toxic. He appears older than his stated age. VITAL SIGNS: Done in the T-max of 98.4, pulse is 118, respirations 16, blood pressure is 136/72, and pulse ox is 96. HEENT: Head is normocephalic, atraumatic. Conjunctivae pale. Sclerae are anicteric. Pupils are equally reactive to light and accommodation. Examination of the oropharynx reveals tongue to be dry. No oropharyngeal lesions are noted. NECK: Supple. No adenopathy is noted. No jugular venous distention is noted. LUNGS: Clear to percussion and auscultation with decreased breath sounds in both bases. CARDIOVASCULAR: Reveals S1 and S2 to be normal, though tachycardia is noted. ABDOMEN: Mildly distended. Patient has a midline scar with a colostomy in the left lower quadrant with extensive erythema and evidence of a parastomal incarcerated hernia just lateral to the colostomy which is of concern at this time. EXTREMITIES: Reveal no cyanosis, clubbing, or edema. NEUROLOGIC: Patient is alert, but confused at this time. LABORATORY DATA: In the ER revealed a white count of 12.7, hemoglobin 14, hematocrit 40.2, and platelet count 206,000. Sodium is 139, K is 5.5, chloride is 99, CO2 of 23, BUN is 113, 9.1. Blood sugar is 153. PT is 18.2 with an INR of 1.61. APTT is 52.2, probably related to him being on Eliquis. His total creatine kinase is probably related to rhabdomyolysis is 8615, CK-MB is 85, and CK-MB CK2 is 1. Troponin is 0.10. Total protein is 7.6, albumin is 3.8, globulin is 3.8. Calcium is 9.4, phosphorous of 2.4, magnesium of 2.1. Blood cultures are pending. Review of the CAT scan of the abdomen and pelvis reveals significant findings of incarcerated ventral hernia with loops of bowel within the hernia sac with small bowel loops that appear to be dilated up to 7.7 cm within the hernia sac consistent with incarcerated hernia with partial bowel obstruction. Ultrasound of the kidneys has been done, report is pending. ASSESSMENT, NOTES, AND PLAN: Patient has a long history of Susac syndrome, history of Crohn's disease on various medications, doing relatively well as an outpatient. He is now admitted to the emergency room with signs and findings of possible acute kidney failure superimposed and the fact that the patient has incarcerated ventral hernia. Patient apparently had emesis that may have been triggered off by the fact that he is developing a bowel obstruction. Patient has had in the past attempts to reverse the colostomy, but because of active colitis, it was felt that he was not a candidate for reversal of colostomy. In view of the current findings, patient is hemodynamically unstable, especially with kidney failure which is acute that we will have to wait on any acute management for the incarcerated hernia. In the meantime, we will continue with IV hydration. Surgery is on the consult. Patient is also going to be seen by Gastroenterology, Dr. Okeefe who knows him very well. Patient is covered with antibiotics. He is going to get ID and GI evaluation along with cardiac evaluation as well to make sure there was no cardiac event that may have precipitated this whole situation. We will speak to the patient's brother who has been the main contact lens curve grinder whenever the patient has been sick in the past. We will speak to the other members in team involved in his care. Please make a note, this is a complex patient with multiple comorbid medical issues. Time spent in evaluating and treating the patient and reviewing the chart more than 80 minutes. Levi López MD
[2018-07-02 04:50] LABS: ARTERIAL BLOOD GAS HEMOGLOBIN 17.4 g/dL (11.7-17.4); ARTERIAL BLOOD GAS O2 CAPACITY 23.8 mL/dl (16-24); ARTERIAL BLOOD GAS O2 CONTENT 23.4 ML/dl (15-23); ARTERIAL BLOOD GAS O2 SAT 98.5 % (95-98); ARTERIAL BLOOD GAS PCO2 38 mm/Hg (35-45); ARTERIAL BLOOD GAS PH 7.52 (7.35-7.45); ARTERIAL BLOOD GAS TCO2 32.2 mmol.L (22-28)
[2018-07-02 05:52] LABS: EOS % 0.4 % (1.5-5.0); LYMPH # 0.6 (1.2-3.4); MEAN CELL VOLUME 90.6 fl (80.0-105.0); MEAN CORPUSCULAR HEMOGLOBIN 30.7 pg (25.0-35.0); MEAN CORPUSCULAR HGB CONC 33.9 g/dl (31.0-37.0); MEAN PLATELET VOLUME 10.1 fl (7.0-11.0); MONO # 0.8 (0.1-0.6); MONO % 10.1 % (1.0-6.0); RBC 3.81 10^6/uL (3.5-6.1); RED CELL DISTRIBUTION WIDTH 14.4 % (11.5-14.5)
[2018-07-02 06:03] LABS: HEMOGLOBIN 11.7 g/dL (14.0-18.0)
[2018-07-02 06:27] LABS: ALBUMIN 3.1 g/dL (3.0-4.8); CALCIUM 8.3 mg/dL (8.4-10.5)
--- NOTE | 2018-07-02 08:14 | CP.PCM.PN ---
<Rhett Shook - Last Filed: 07/02/18 08:08> Subjective - Date & Time of Evaluation Date of Evaluation: 07/02/18 Time of Evaluation: 07:45 - Subjective Subjective: General Surgery Pt seen and examined. Still with some confusion and abdominal pain. Continues to have urine output but no stool in ostomy bag. WBC 8.0. No improvement in Cr. Objective - Vital Signs/Intake and Output Vital Signs (last 24 hours): Temp Pulse Resp BP Pulse Ox 99.3 F 114 H 31 H 156/70 H 96 07/01/18 18:40 07/01/18 18:40 07/01/18 18:40 07/01/18 18:30 07/01/18 18:40 - Medications Medications: Current Medications Famotidine (Pepcid) 20 mg IVP DAILY [facility] Last Admin: 07/01/18 15:00 Dose: 20 mg Piperacillin Sod/Tazobactam Sod (Zosyn 3.375 In Ns 100ml) 100 mls @ 25 mls/hr IVPB Q12 SANTINO; Protocol Stop: 07/11/18 10:01 Sodium Bicarbonate 100 meq/ (Dextrose) 1,100 mls @ 150 mls/hr IV .Q7H20M SANTINO Last Admin: 07/02/18 07:50 Dose: 150 mls/hr Morphine Sulfate (Morphine) 2 mg IVP Q4H PRN PRN Reason: Pain, severe (8-10) Last Admin: 07/02/18 04:33 Dose: 2 mg - Labs Labs: 07/02/18 05:30 07/02/18 05:30 PT 18.2 SECONDS (9.4-12.5) H 07/01/18 08:50 INR 1.61 07/01/18 08:50 APTT 52.2 Seconds (26.9-38.3) H 07/01/18 08:50 - Constitutional Appears: No Acute Distress, Confused - Head Exam Head Exam: ATRAUMATIC, NORMOCEPHALIC - Eye Exam Eye Exam: EOMI. absent: Scleral icterus - Respiratory Exam Respiratory Exam: NORMAL BREATHING PATTERN. absent: Respiratory Distress - GI/Abdominal Exam GI & Abdominal Exam: Soft, Tenderness, Hernia. absent: Distended, Firm, Guarding, Rigid, Rebound Additional comments: Colostomy in place with minimal stool in bag L side non reducible ventral hernia with improving erythema overlying the site. area is tender to plapation. Large midline scar - Back Exam Additional comments: Linear bands of erythema across the shoulder blade area and sacral area. Skin intact. - Neurological Exam Neurological Exam: Alert, Awake - Skin Skin Exam: Dry, Warm Assessment and Plan - Assessment and Plan (Free Text) Assessment: 52M with incarcerated ventral hernia, crohns disease, Susac syndrome Plan: NPO Continue IVF per Nephro Strict I&Os F/U myoglobin level Abx per Medical team Monitor Abd exam Monitor for Bowel function No plan for immediate surgery unless acutely worsening. There is concern that this could be a crohn's flare and he may be forming a EC fistula. D/W Dr. Bipin Shook PGY4 <Navid Voss - Last Filed: 07/03/18 08:43> Objective - Vital Signs/Intake and Output Vital Signs (last 24 hours): Temp Pulse Resp BP Pulse Ox 98.4 F 76 22 147/82 92 L 07/03/18 08:10 07/03/18 08:10 07/03/18 08:10 07/03/18 08:00 07/03/18 08:10 Intake and Output: 07/03/18 07/03/18 06:59 18:59 Intake Total 2000 Output Total 1400 Balance 600 - Medications Medications: Current Medications Famotidine (Pepcid) 20 mg IVP DAILY [facility] Last Admin: 07/02/18 09:26 Dose: 20 mg Piperacillin Sod/Tazobactam Sod (Zosyn 3.375 In Ns 100ml) 100 mls @ 25 mls/hr IVPB Q12 SANTINO; Protocol Stop: 07/11/18 10:01 Last Admin: 07/02/18 21:23 Dose: 25 mls/hr Sodium Bicarbonate 100 meq/ (Dextrose) 1,100 mls @ 150 mls/hr IV .Q7H20M [facility] Last Admin: 07/02/18 23:20 Dose: 150 mls/hr Metronidazole (Flagyl) 500 mg in 100 mls @ 100 mls/hr IVPB Q8 SANTINO; Protocol Last Admin: 07/03/18 08:16 Dose: 100 mls/hr Methylprednisolone (Solu-Medrol) 60 mg IVP Q12 SANTINO Stop: 07/04/18 16:22 Last Admin: 07/03/18 02:57 Dose: 60 mg Morphine Sulfate (Morphine) 2 mg IVP Q4H PRN PRN Reason: Pain, severe (8-10) Last Admin: 07/02/18 04:33 Dose: 2 mg - Labs Labs: 07/03/18 06:05 07/03/18 06:05 PT 18.2 SECONDS (9.4-12.5) H 07/01/18 08:50 INR 1.61 07/01/18 08:50 APTT 52.2 Seconds (26.9-38.3) H 07/01/18 08:50 Assessment and Plan - Assessment and Plan (Free Text) Assessment: PSBO/parastomal hernia/Lt paraumbilical cellulitis/? Crohn's flare u-up. Plan: NPO/IV ABX/IVF/Empiric steroids/Serial abd exam/Will consider surgery only if patient's condition deteriorates. Pt is very high risk for surgical intervention because of his extensive past surgical history and comorbid factors, as well as technical considerations including probable hostile abdomen, active Crohn's, parastomal hernia, with malfunctioning colostomy that may need to be relocated, increasing precipitously the risk for collateral damage to small bowel, short gut, inability to relocate colostomy or successfully repair the parastomal hernia, wound dehiscence or evisceration and entero/colocutaneous fistula. Discussed above concerns with pt/daughter in lay terms. They fully understand the risks of a possible surgical intervention, and agree with the currently implemented conservative management.
[2018-07-02] MEDS: Piperacillin/Tazobact 3.375 gm 100 ML IVPB SCH ×2 (09:26→21:23)
--- NOTE | 2018-07-02 09:36 | CP.CCUPN ---
<Lennox Pineda - Last Filed: 07/02/18 14:08> CCU Subjective - Physician Review Subjective (Free Text): Lennox Pineda PGY-1 Critical Care Progress Note Patient seen and evaluated at bedside. No acute events reported overnight. Resting comfortably in bed in no acute distress. Patient reports abdominal pain is currently controlled. Denies chest pain, palpitations, shortness of breath. CCU Objective - Vital Signs / Intake & Output Vital Signs (Last 4 hours): Vital Signs Temp Pulse Resp BP Pulse Ox 07/02/18 08:40 99.0 F 102 H 22 97 07/02/18 08:30 98.8 F 100 H 24 97 07/02/18 08:20 98.8 F 100 H 22 97 07/02/18 08:14 98.6 F 99 H 97 07/02/18 08:10 98.6 F 101 H 21 97 07/02/18 08:08 98.6 F 98 H 97 07/02/18 08:07 98.6 F 101 H 97 07/02/18 08:06 98.6 F 96 H 97 07/02/18 08:04 98.6 F 98 H 97 07/02/18 08:03 98.6 F 96 H 97 07/02/18 08:01 98.6 F 101 H 97 07/02/18 08:00 162/86 H 07/02/18 07:59 98.6 F 99 H 97 07/02/18 07:58 98.6 F 100 H 96 07/02/18 07:50 98.6 F 104 H 22 97 07/02/18 07:46 98.6 F 101 H 96 07/02/18 07:45 98.6 F 103 H 96 07/02/18 07:40 98.4 F 105 H 21 97 07/02/18 07:38 98.2 F 102 H 95 07/02/18 07:30 98.6 F 105 H 24 93 L 07/02/18 07:23 98.6 F 102 H 92 L 07/02/18 07:20 98.6 F 106 H 24 95 07/02/18 07:10 98.6 F 104 H 22 94 L 07/02/18 07:06 98.6 F 108 H 95 07/02/18 07:00 98.6 F 103 H 25 H 160/76 H 97 07/02/18 06:50 98.6 F 105 H 26 H 97 07/02/18 06:40 98.6 F 107 H 26 H 96 07/02/18 06:30 98.6 F 103 H 26 H 96 07/02/18 06:20 98.6 F 107 H 26 H 97 07/02/18 06:10 98.6 F 107 H 27 H 96 07/02/18 06:00 98.8 F 106 H 23 161/68 H 97 07/02/18 05:50 98.8 F 107 H 24 97 07/02/18 05:40 98.8 F 105 H 26 H 96 Intake and Output (Last 8hrs): Intake & Output 07/01/18 07/02/18 07/02/18 22:59 06:59 14:59 Intake Total 5500 1625 Output Total 275 480 Balance 5225 1145 Weight 100.698 kg Intake: IV 5500 1525 Left Upper arm 5500 1525 Oral 0 0 Tube Feeding 0 TPN/PPN 0 Blood Product 0 Lipid 0 Albumin 0 Other 100 Output: Urine 275 480 Urethral (Estrada) 275 480 Stool 0 0 Urine/Stool Mix 0 Emesis 0 Oral Regurgitation 0 Other 0 Other: Voiding Method Urinal # Voids Urethral (Estrada) 0 # Bowel Movements 0 - Physical Exam Head: Positive for: Atraumatic, Normocephalic Pupils: Positive for: PERRL Extroacular Muscles: Positive for: EOMI Conjunctiva: Positive for: Normal Mouth: Positive for: Dry Neck: Positive for: Normal Range of Motion Respiratory/Chest: Positive for: Clear to Auscultation, Decreased Breath Sounds. Negative for: Respiratory Distress, Accessory Muscle Use, Wheezes, Rales, Rhonchi Cardiovascular: Positive for: Regular Rate and Rhythm, Normal S1, S2. Negative for: Murmurs Abdomen: Positive for: Other (Colostomy to left lower quadrant, TTP L sided non reducible ventral hernia with erythema overlying the site. Reduced in size. ). Negative for: Tenderness, Distention, Peritoneal Signs, Rebound, Guarding, [place] Tender Back: Positive for: Normal Inspection Upper Extremity: Positive for: Normal Inspection. Negative for: Cyanosis, Edema Lower Extremity: Positive for: Normal Inspection. Negative for: Edema Neurological: Positive for: GCS=15, Speech Normal Skin: Positive for: Warm, Dry, Normal Color. Negative for: Rashes Psychiatric: Positive for: Alert, Normal Insight, Normal Concentration. Negative for: Oriented x 3 (Oriented x 2 ) - Medications Active Medications: Active Medications Generic Name Dose Route Start Last Admin Trade Name Freq PRN Reason Stop Dose Admin Famotidine 20 mg 07/01/18 13:15 07/02/18 09:26 Pepcid IVP 20 mg DAILY SANTINO Administration Piperacillin Sod/Tazobactam Sod 100 mls @ 25 mls/hr 07/02/18 10:00 07/02/18 09:26 Zosyn 3.375 In Ns 100ml IVPB 07/11/18 10:01 25 mls/hr Q12 SANTINO Administration Protocol Sodium Bicarbonate 100 meq/ 1,100 mls @ 150 mls/hr 07/01/18 23:45 07/02/18 07:50 Dextrose IV 150 mls/hr .[id number] SANTINO Administration Morphine Sulfate 2 mg 07/01/18 15:48 07/02/18 04:33 Morphine IVP 2 mg Q4H PRN Administration Pain, severe (8-10) - Patient Studies Lab Studies: Microbiology Studies 07/01/18 09:10 Blood Culture - Preliminary Blood NO GROWTH AFTER 24 HOURS 07/01/18 08:50 Blood Culture - Preliminary Blood Gram Positive Cocci Gram Stain - Final Lab Studies 07/02/18 07/02/18 07/02/18 Range/Units 05:30 05:30 04:40 WBC 8.0 D (4.5-11.0) 10^3/uL RBC 3.81 (3.5-6.1) 10^6/uL Hgb 11.7 L D (14.0-18.0) g/dL Hct 34.5 L (42.0-52.0) % MCV 90.6 (80.0-105.0) fl MCH 30.7 (25.0-35.0) pg MCHC 33.9 (31.0-37.0) g/dl RDW 14.4 (11.5-14.5) % Plt Count 144 (120.0-450.0) 10^3/uL MPV 10.1 (7.0-11.0) fl Neut % (Auto) 82.5 H (50.0-68.0) % Lymph % (Auto) 7.0 L (22.0-35.0) % [place] % (Auto) 10.1 H (1.0-6.0) % Eos % (Auto) 0.4 L (1.5-5.0) % Baso % (Auto) 0.0 (0.0-3.0) % Lymph # (Auto) 0.6 L (1.2-3.4) [place] # (Auto) 0.8 H (0.1-0.6) Eos # (Auto) 0.0 (0.0-0.7) Baso # (Auto) 0.00 (0.0-2.0) K/mm3 Absolute Neuts (auto) 6.61 H (1.4-6.5) pCO2 38 (35-45) mm/Hg pO2 95.0 (30-55) mm/Hg HCO3 31.0 H (21-28) mmol/L ABG pH 7.52 H (7.35-7.45) ABG Total CO2 32.2 H (22-28) mmol.L ABG O2 Saturation 98.5 H (95-98) % ABG O2 Content 23.4 H (15-23) ML/dl ABG Base Excess 7.6 H (-2.0-3.0) mmol/L ABG Hemoglobin 17.4 (11.7-17.4) g/dL ABG Carboxyhemoglobin 1.5 (0.5-1.5) % POC ABG HHb (Measured) 1.5 (0-5) % ABG Methemoglobin 1.4 (0.0-3.0) % ABG O2 Capacity 23.8 (16-24) mL/dl ABG Potassium (3.6-5.2) mmol/L VBG pH (7.32-7.43) VBG pCO2 (40-60) VBG HCO3 (21-28) mmol/l VBG Total CO2 (22-28) mmol.L VBG O2 Sat (Calc) (40-65) % VBG Base Excess (0.0-2.0) mmol/L VBG Potassium (3.6-5.2) mmol/L Hgb O2 Saturation 95.6 (95.0-98.0) % Glucose (75-110) mg/dl Lactate (0.7-2.1) mmol/L FiO2 32.0 % Crit Value Called To Crit Value Called By Blood Gas Notified Time Sodium 142 (132-148) mmol/L Potassium 4.9 (3.6-5.0) mmol/L Chloride 99 (98-107) mmol/L Carbon Dioxide 27 (21-33) mmol/L Anion Gap 21 H (10-20) BUN 124 H* (7-21) mg/dL Creatinine 9.3 H* (0.8-1.5) mg/dl Est GFR ( Amer) 7 Est GFR (Non-Af Amer) 6 Random Glucose 222 H (70-110) mg/dL Calcium 8.3 L (8.4-10.5) mg/dL Phosphorus 2.7 (2.5-4.5) mg/dL Magnesium 2.3 H (1.7-2.2) mg/dL Total Bilirubin 1.0 (0.2-1.3) mg/dL AST 160 H D (17-59) U/L ALT 55 (7-56) U/L Alkaline Phosphatase 71 (38-126) U/L Total Creatine Kinase (35-230) U/L CK-MB (CK-2) (0.0-3.6) ng/mL CK-MB (CK-2) % (2.5-3.0) % Troponin I ng/mL C-React Prot High Sens (1.00-3.00) mg/L NT-Pro-B Natriuret Pep (0-450) pg/mL Total Protein 6.3 (5.8-8.3) g/dL Albumin 3.1 (3.0-4.8) g/dL Globulin 3.2 gm/dL Albumin/Globulin Ratio 1.0 L (1.1-1.8) Arterial Blood Potassium (3.6-5.2) mmol/L Venous Blood Potassium (3.6-5.2) mmol/L Urine Color (YELLOW) Urine Appearance (CLEAR) Urine pH (4.7-8.0) Ur Specific [place] (1.005-1.035) Urine Protein (<30 mg/dL) mg/dL Urine Glucose (UA) (NEGATIVE) mg/dL Urine Ketones (NEGATIVE) mg/dL Urine Blood (NEGATIVE) Urine Nitrate (NEGATIVE) Urine Bilirubin (NEGATIVE) Urine Urobilinogen (<1 E.U./dL) E.U./dL Ur Leukocyte Esterase (NEGATIVE) Vane/uL Urine RBC (0-2) /hpf Urine WBC (0-6) /hpf Ur Epithelial Cells (0-5) /hpf Urine Bacteria (NONE) /hpf Hyaline Casts (NONE) /hpf Coarse Granular Casts (NONE) /hpf Urine Eosinophils Ur Random Creatinine mg/dL Ur Random Sodium meq/L 07/02/18 07/02/18 07/02/18 Range/Units 02:53 02:53 02:10 WBC (4.5-11.0) 10^3/uL RBC (3.5-6.1) 10^6/uL Hgb (14.0-18.0) g/dL Hct (42.0-52.0) % MCV (80.0-105.0) fl MCH (25.0-35.0) pg MCHC (31.0-37.0) g/dl RDW (11.5-14.5) % Plt Count (120.0-450.0) 10^3/uL MPV (7.0-11.0) fl Neut % (Auto) (50.0-68.0) % Lymph % (Auto) (22.0-35.0) % [place] % (Auto) (1.0-6.0) % Eos % (Auto) (1.5-5.0) % Baso % (Auto) (0.0-3.0) % Lymph # (Auto) (1.2-3.4) [place] # (Auto) (0.1-0.6) Eos # (Auto) (0.0-0.7) Baso # (Auto) (0.0-2.0) K/mm3 Absolute Neuts (auto) (1.4-6.5) pCO2 (35-45) mm/Hg pO2 (30-55) mm/Hg HCO3 (21-28) mmol/L ABG pH (7.35-7.45) ABG Total CO2 (22-28) mmol.L ABG O2 Saturation (95-98) % ABG O2 Content (15-23) ML/dl ABG Base Excess (-2.0-3.0) mmol/L ABG Hemoglobin (11.7-17.4) g/dL ABG Carboxyhemoglobin (0.5-1.5) % POC ABG HHb (Measured) (0-5) % ABG Methemoglobin (0.0-3.0) % ABG O2 Capacity (16-24) mL/dl ABG Potassium (3.6-5.2) mmol/L VBG pH (7.32-7.43) VBG pCO2 (40-60) VBG HCO3 (21-28) mmol/l VBG Total CO2 (22-28) mmol.L VBG O2 Sat (Calc) (40-65) % VBG Base Excess (0.0-2.0) mmol/L VBG Potassium (3.6-5.2) mmol/L Hgb O2 Saturation (95.0-98.0) % Glucose (75-110) mg/dl Lactate (0.7-2.1) mmol/L FiO2 % Crit Value Called To Crit Value Called By Blood Gas Notified Time Sodium 142 (132-148) mmol/L Potassium 5.7 H* (3.6-5.0) mmol/L Chloride 102 (98-107) mmol/L Carbon Dioxide 22 (21-33) mmol/L Anion Gap 24 H (10-20) BUN 121 H* (7-21) mg/dL Creatinine 9.3 H* (0.8-1.5) mg/dl Est GFR ( Amer) 7 Est GFR (Non-Af Amer) 6 Random Glucose 163 H (70-110) mg/dL Calcium 8.7 (8.4-10.5) mg/dL Phosphorus (2.5-4.5) mg/dL Magnesium (1.7-2.2) mg/dL Total Bilirubin (0.2-1.3) mg/dL AST (17-59) U/L ALT (7-56) U/L Alkaline Phosphatase (38-126) U/L Total Creatine Kinase (35-230) U/L CK-MB (CK-2) (0.0-3.6) ng/mL CK-MB (CK-2) % (2.5-3.0) % Troponin I ng/mL C-React Prot High Sens (1.00-3.00) mg/L NT-Pro-B Natriuret Pep (0-450) pg/mL Total Protein (5.8-8.3) g/dL Albumin (3.0-4.8) g/dL Globulin gm/dL Albumin/Globulin Ratio (1.1-1.8) Arterial Blood Potassium (3.6-5.2) mmol/L Venous Blood Potassium (3.6-5.2) mmol/L Urine Color (YELLOW) Urine Appearance (CLEAR) Urine pH (4.7-8.0) Ur Specific [place] (1.005-1.035) Urine Protein (<30 mg/dL) mg/dL Urine Glucose (UA) (NEGATIVE) mg/dL Urine Ketones (NEGATIVE) mg/dL Urine Blood (NEGATIVE) Urine Nitrate (NEGATIVE) Urine Bilirubin (NEGATIVE) Urine Urobilinogen (<1 E.U./dL) E.U./dL Ur Leukocyte Esterase (NEGATIVE) Vane/uL Urine RBC (0-2) /hpf Urine WBC (0-6) /hpf Ur Epithelial Cells (0-5) /hpf Urine Bacteria (NONE) /hpf Hyaline Casts (NONE) /hpf Coarse Granular Casts (NONE) /hpf Urine Eosinophils Negative Ur Random Creatinine 74 mg/dL Ur Random Sodium 87 meq/L 07/01/18 07/01/18 07/01/18 Range/Units 22:00 18:40 18:20 WBC (4.5-11.0) 10^3/uL RBC (3.5-6.1) 10^6/uL Hgb (14.0-18.0) g/dL Hct (42.0-52.0) % MCV (80.0-105.0) fl MCH (25.0-35.0) pg MCHC (31.0-37.0) g/dl RDW (11.5-14.5) % Plt Count (120.0-450.0) 10^3/uL MPV (7.0-11.0) fl Neut % (Auto) (50.0-68.0) % Lymph % (Auto) (22.0-35.0) % [place] % (Auto) (1.0-6.0) % Eos % (Auto) (1.5-5.0) % Baso % (Auto) (0.0-3.0) % Lymph # (Auto) (1.2-3.4) [place] # (Auto) (0.1-0.6) Eos # (Auto) (0.0-0.7) Baso # (Auto) (0.0-2.0) K/mm3 Absolute Neuts (auto) (1.4-6.5) pCO2 (35-45) mm/Hg pO2 85 H (30-55) mm/Hg HCO3 (21-28) mmol/L ABG pH (7.35-7.45) ABG Total CO2 (22-28) mmol.L ABG O2 Saturation (95-98) % ABG O2 Content (15-23) ML/dl ABG Base Excess (-2.0-3.0) mmol/L ABG Hemoglobin (11.7-17.4) g/dL ABG Carboxyhemoglobin (0.5-1.5) % POC ABG HHb (Measured) (0-5) % ABG Methemoglobin (0.0-3.0) % ABG O2 Capacity (16-24) mL/dl ABG Potassium (3.6-5.2) mmol/L VBG pH 7.33 (7.32-7.43) VBG pCO2 39.0 L (40-60) VBG HCO3 20.6 L (21-28) mmol/l VBG Total CO2 21.8 L (22-28) mmol.L VBG O2 Sat (Calc) 97.5 H (40-65) % VBG Base Excess -4.9 L (0.0-2.0) mmol/L VBG Potassium 5.8 H (3.6-5.2) mmol/L Hgb O2 Saturation (95.0-98.0) % Glucose 115 H (75-110) mg/dl Lactate 1.9 (0.7-2.1) mmol/L FiO2 21.0 % Crit Value Called To Crit Value Called By Blood Gas Notified Time Sodium 140 136.0 (132-148) mmol/L Potassium 6.2 H* (3.6-5.0) mmol/L Chloride 103 102.0 (98-107) mmol/L Carbon Dioxide 20 L (21-33) mmol/L Anion Gap 23 H (10-20) BUN 118 H (7-21) mg/dL Creatinine 9.3 H* (0.8-1.5) mg/dl Est GFR ( Amer) 7 Est GFR (Non-Af Amer) 6 Random Glucose 126 H (70-110) mg/dL Calcium 8.9 (8.4-10.5) mg/dL Phosphorus (2.5-4.5) mg/dL Magnesium (1.7-2.2) mg/dL Total Bilirubin (0.2-1.3) mg/dL AST (17-59) U/L ALT (7-56) U/L Alkaline Phosphatase (38-126) U/L Total Creatine Kinase (35-230) U/L CK-MB (CK-2) (0.0-3.6) ng/mL CK-MB (CK-2) % (2.5-3.0) % Troponin I 0.09 ng/mL C-React Prot High Sens (1.00-3.00) mg/L NT-Pro-B Natriuret Pep (0-450) pg/mL Total Protein (5.8-8.3) g/dL Albumin (3.0-4.8) g/dL Globulin gm/dL Albumin/Globulin Ratio (1.1-1.8) Arterial Blood Potassium (3.6-5.2) mmol/L Venous Blood Potassium 5.8 H (3.6-5.2) mmol/L Urine Color Dark yellow (YELLOW) Urine Appearance Slight-cloudy (CLEAR) Urine pH 6.0 (4.7-8.0) Ur Specific [place] 1.025 (1.005-1.035) Urine Protein >=300 H (<30 mg/dL) mg/dL Urine Glucose (UA) Negative (NEGATIVE) mg/dL Urine Ketones Negative (NEGATIVE) mg/dL Urine Blood Large H (NEGATIVE) Urine Nitrate Negative (NEGATIVE) Urine Bilirubin Moderate H (NEGATIVE) Urine Urobilinogen 0.2 (<1 E.U./dL) E.U./dL Ur Leukocyte Esterase Negative (NEGATIVE) Vane/uL Urine RBC 5 - 10 H (0-2) /hpf Urine WBC 0 - 2 (0-6) /hpf Ur Epithelial Cells None (0-5) /hpf Urine Bacteria Few (NONE) /hpf Hyaline Casts 0 - 2 (NONE) /hpf Coarse Granular Casts Trace (NONE) /hpf Urine Eosinophils Ur Random Creatinine mg/dL Ur Random Sodium meq/L 07/01/18 07/01/18 07/01/18 Range/Units 18:20 18:20 17:40 WBC (4.5-11.0) 10^3/uL RBC (3.5-6.1) 10^6/uL Hgb (14.0-18.0) g/dL Hct (42.0-52.0) % MCV (80.0-105.0) fl MCH (25.0-35.0) pg MCHC (31.0-37.0) g/dl RDW (11.5-14.5) % Plt Count (120.0-450.0) 10^3/uL MPV (7.0-11.0) fl Neut % (Auto) (50.0-68.0) % Lymph % (Auto) (22.0-35.0) % [place] % (Auto) (1.0-6.0) % Eos % (Auto) (1.5-5.0) % Baso % (Auto) (0.0-3.0) % Lymph # (Auto) (1.2-3.4) [place] # (Auto) (0.1-0.6) Eos # (Auto) (0.0-0.7) Baso # (Auto) (0.0-2.0) K/mm3 Absolute Neuts (auto) (1.4-6.5) pCO2 32 L (35-45) mm/Hg pO2 93.0 (30-55) mm/Hg HCO3 19.4 L (21-28) mmol/L ABG pH 7.39 (7.35-7.45) ABG Total CO2 20.4 L (22-28) mmol.L ABG O2 Saturation 98.4 H (95-98) % ABG O2 Content (15-23) ML/dl ABG Base Excess -4.6 L (-2.0-3.0) mmol/L ABG Hemoglobin (11.7-17.4) g/dL ABG Carboxyhemoglobin (0.5-1.5) % POC ABG HHb (Measured) (0-5) % ABG Methemoglobin (0.0-3.0) % ABG O2 Capacity (16-24) mL/dl ABG Potassium 5.4 H (3.6-5.2) mmol/L VBG pH (7.32-7.43) VBG pCO2 (40-60) VBG HCO3 (21-28) mmol/l VBG Total CO2 (22-28) mmol.L VBG O2 Sat (Calc) (40-65) % VBG Base Excess (0.0-2.0) mmol/L VBG Potassium (3.6-5.2) mmol/L Hgb O2 Saturation (95.0-98.0) % Glucose 111 H (75-110) mg/dl Lactate 1.7 (0.7-2.1) mmol/L FiO2 30.0 % Crit Value Called To Crit Value Called By Blood Gas Notified Time Sodium 140 Cancelled 136.0 (132-148) mmol/L Potassium 5.9 H* Cancelled (3.6-5.0) mmol/L Chloride 100 Cancelled 105.0 (98-107) mmol/L Carbon Dioxide 21 Cancelled (21-33) mmol/L Anion Gap 25 H Cancelled (10-20) BUN 114 H Cancelled (7-21) mg/dL Creatinine 9.0 H* (0.8-1.5) mg/dl Est GFR ( Amer) 7 Cancelled Est GFR (Non-Af Amer) 6 Cancelled Random Glucose 119 H Cancelled (70-110) mg/dL Calcium 9.1 Cancelled (8.4-10.5) mg/dL Phosphorus (2.5-4.5) mg/dL Magnesium (1.7-2.2) mg/dL Total Bilirubin Cancelled (0.2-1.3) mg/dL AST Cancelled (17-59) U/L ALT Cancelled (7-56) U/L Alkaline Phosphatase Cancelled (38-126) U/L Total Creatine Kinase 8615 H (35-230) U/L CK-MB (CK-2) 85.0 H (0.0-3.6) ng/mL CK-MB (CK-2) % 1.0 L (2.5-3.0) % Troponin I 0.10 D ng/mL C-React Prot High Sens (1.00-3.00) mg/L NT-Pro-B Natriuret Pep (0-450) pg/mL Total Protein Cancelled (5.8-8.3) g/dL Albumin Cancelled (3.0-4.8) g/dL Globulin Cancelled gm/dL Albumin/Globulin Ratio Cancelled (1.1-1.8) Arterial Blood Potassium 5.4 H (3.6-5.2) mmol/L Venous Blood Potassium (3.6-5.2) mmol/L Urine Color (YELLOW) Urine Appearance (CLEAR) Urine pH (4.7-8.0) Ur Specific [place] (1.005-1.035) Urine Protein (<30 mg/dL) mg/dL Urine Glucose (UA) (NEGATIVE) mg/dL Urine Ketones (NEGATIVE) mg/dL Urine Blood (NEGATIVE) Urine Nitrate (NEGATIVE) Urine Bilirubin (NEGATIVE) Urine Urobilinogen (<1 E.U./dL) E.U./dL Ur Leukocyte Esterase (NEGATIVE) Vane/uL Urine RBC (0-2) /hpf Urine WBC (0-6) /hpf Ur Epithelial Cells (0-5) /hpf Urine Bacteria (NONE) /hpf Hyaline Casts (NONE) /hpf Coarse Granular Casts (NONE) /hpf Urine Eosinophils Ur Random Creatinine mg/dL Ur Random Sodium meq/L 07/01/18 07/01/18 07/01/18 Range/Units 14:00 14:00 14:00 WBC 12.7 H D (4.5-11.0) 10^3/uL RBC 4.44 (3.5-6.1) 10^6/uL Hgb 14.0 (14.0-18.0) g/dL Hct 40.2 L (42.0-52.0) % MCV 90.5 (80.0-105.0) fl MCH 31.5 (25.0-35.0) pg MCHC 34.8 (31.0-37.0) g/dl RDW 14.2 (11.5-14.5) % Plt Count 206 (120.0-450.0) 10^3/uL MPV 10.9 (7.0-11.0) fl Neut % (Auto) 84.6 H (50.0-68.0) % Lymph % (Auto) 7.4 L (22.0-35.0) % [place] % (Auto) 7.7 H (1.0-6.0) % Eos % (Auto) 0.1 L (1.5-5.0) % Baso % (Auto) 0.2 (0.0-3.0) % Lymph # (Auto) 0.9 L (1.2-3.4) [place] # (Auto) 1.0 H (0.1-0.6) Eos # (Auto) 0.0 (0.0-0.7) Baso # (Auto) 0.02 (0.0-2.0) K/mm3 Absolute Neuts (auto) 10.74 H (1.4-6.5) pCO2 (35-45) mm/Hg pO2 78 H (30-55) mm/Hg HCO3 (21-28) mmol/L ABG pH (7.35-7.45) ABG Total CO2 (22-28) mmol.L ABG O2 Saturation (95-98) % ABG O2 Content (15-23) ML/dl ABG Base Excess (-2.0-3.0) mmol/L ABG Hemoglobin (11.7-17.4) g/dL ABG Carboxyhemoglobin (0.5-1.5) % POC ABG HHb (Measured) (0-5) % ABG Methemoglobin (0.0-3.0) % ABG O2 Capacity (16-24) mL/dl ABG Potassium (3.6-5.2) mmol/L VBG pH 7.37 (7.32-7.43) VBG pCO2 37.0 L (40-60) VBG HCO3 21.4 (21-28) mmol/l VBG Total CO2 22.5 (22-28) mmol.L VBG O2 Sat (Calc) 96.7 H (40-65) % VBG Base Excess -3.4 L (0.0-2.0) mmol/L VBG Potassium 5.4 H (3.6-5.2) mmol/L Hgb O2 Saturation (95.0-98.0) % Glucose 150 H (75-110) mg/dl Lactate 2.6 H (0.7-2.1) mmol/L FiO2 21.0 % Crit Value Called To Toña estrella rn ccu Crit Value Called By Adri Blood Gas Notified Time 1415 Sodium 139 134.0 (132-148) mmol/L Potassium 5.5 H (3.6-5.0) mmol/L Chloride 99 100.0 (98-107) mmol/L Carbon Dioxide 23 (21-33) mmol/L Anion Gap 24 H (10-20) BUN 113 H (7-21) mg/dL Creatinine 9.1 H* (0.8-1.5) mg/dl Est GFR ( Amer) 7 Est GFR (Non-Af Amer) 6 Random Glucose 153 H (70-110) mg/dL Calcium 9.4 (8.4-10.5) mg/dL Phosphorus 2.4 L (2.5-4.5) mg/dL Magnesium 2.1 (1.7-2.2) mg/dL Total Bilirubin 1.1 (0.2-1.3) mg/dL AST 241 H (17-59) U/L ALT 67 H (7-56) U/L Alkaline Phosphatase 91 (38-126) U/L Total Creatine Kinase (35-230) U/L CK-MB (CK-2) (0.0-3.6) ng/mL CK-MB (CK-2) % (2.5-3.0) % Troponin I ng/mL C-React Prot High Sens (1.00-3.00) mg/L NT-Pro-B Natriuret Pep (0-450) pg/mL Total Protein 7.6 (5.8-8.3) g/dL Albumin 3.8 (3.0-4.8) g/dL Globulin 3.8 gm/dL Albumin/Globulin Ratio 1.0 L (1.1-1.8) Arterial Blood Potassium (3.6-5.2) mmol/L Venous Blood Potassium 5.4 H (3.6-5.2) mmol/L Urine Color (YELLOW) Urine Appearance (CLEAR) Urine pH (4.7-8.0) Ur Specific [place] (1.005-1.035) Urine Protein (<30 mg/dL) mg/dL Urine Glucose (UA) (NEGATIVE) mg/dL Urine Ketones (NEGATIVE) mg/dL Urine Blood (NEGATIVE) Urine Nitrate (NEGATIVE) Urine Bilirubin (NEGATIVE) Urine Urobilinogen (<1 E.U./dL) E.U./dL Ur Leukocyte Esterase (NEGATIVE) Vane/uL Urine RBC (0-2) /hpf Urine WBC (0-6) /hpf Ur Epithelial Cells (0-5) /hpf Urine Bacteria (NONE) /hpf Hyaline Casts (NONE) /hpf Coarse Granular Casts (NONE) /hpf Urine Eosinophils Ur Random Creatinine mg/dL Ur Random Sodium meq/L 07/01/18 07/01/18 07/01/18 Range/Units 09:10 08:50 08:50 WBC (4.5-11.0) 10^3/uL RBC (3.5-6.1) 10^6/uL Hgb (14.0-18.0) g/dL Hct (42.0-52.0) % MCV (80.0-105.0) fl MCH (25.0-35.0) pg MCHC (31.0-37.0) g/dl RDW (11.5-14.5) % Plt Count (120.0-450.0) 10^3/uL MPV (7.0-11.0) fl Neut % (Auto) (50.0-68.0) % Lymph % (Auto) (22.0-35.0) % Wake % (Auto) (1.0-6.0) % Eos % (Auto) (1.5-5.0) % Baso % (Auto) (0.0-3.0) % Lymph # (Auto) (1.2-3.4) [place] # (Auto) (0.1-0.6) Eos # (Auto) (0.0-0.7) Baso # (Auto) (0.0-2.0) K/mm3 Absolute Neuts (auto) (1.4-6.5) pCO2 (35-45) mm/Hg pO2 53 (30-55) mm/Hg HCO3 (21-28) mmol/L ABG pH (7.35-7.45) ABG Total CO2 (22-28) mmol.L ABG O2 Saturation (95-98) % ABG O2 Content (15-23) ML/dl ABG Base Excess (-2.0-3.0) mmol/L ABG Hemoglobin (11.7-17.4) g/dL ABG Carboxyhemoglobin (0.5-1.5) % POC ABG HHb (Measured) (0-5) % ABG Methemoglobin (0.0-3.0) % ABG O2 Capacity (16-24) mL/dl ABG Potassium (3.6-5.2) mmol/L VBG pH 7.31 L (7.32-7.43) VBG pCO2 36.0 L (40-60) VBG HCO3 18.1 L (21-28) mmol/l VBG Total CO2 19.2 L (22-28) mmol.L VBG O2 Sat (Calc) 86.5 H (40-65) % VBG Base Excess -7.4 L (0.0-2.0) mmol/L VBG Potassium 6.9 H* (3.6-5.2) mmol/L Hgb O2 Saturation (95.0-98.0) % Glucose 123 H (75-110) mg/dl Lactate 3.6 H (0.7-2.1) mmol/L FiO2 21.0 % Crit Value Called To Steffanie ortiz Crit Value Called By [facility] Blood Gas Notified Time 922 Sodium 132.0 138 (132-148) mmol/L Potassium 6.9 H* D (3.6-5.0) mmol/L Chloride 96.0 L 96 L (98-107) mmol/L Carbon Dioxide 18 L (21-33) mmol/L Anion Gap 31 H (10-20) BUN 101 H (7-21) mg/dL Creatinine 9.4 H* D (0.8-1.5) mg/dl Est GFR ( Amer) 7 Est GFR (Non-Af Amer) 6 Random Glucose 131 H (70-110) mg/dL Calcium 10.2 (8.4-10.5) mg/dL Phosphorus 2.7 (2.5-4.5) mg/dL Magnesium 2.1 (1.7-2.2) mg/dL Total Bilirubin 1.8 H (0.2-1.3) mg/dL AST 213 H D (17-59) U/L ALT 60 H (7-56) U/L Alkaline Phosphatase 103 (38-126) U/L Total Creatine Kinase 7222 H (35-230) U/L CK-MB (CK-2) 91.2 H (0.0-3.6) ng/mL CK-MB (CK-2) % 1.3 L (2.5-3.0) % Troponin I 0.16 H* D ng/mL C-React Prot High Sens > 15.00 H (1.00-3.00) mg/L NT-Pro-B Natriuret Pep 6170 H (0-450) pg/mL Total Protein 8.7 H (5.8-8.3) g/dL Albumin 4.4 (3.0-4.8) g/dL Globulin 4.3 gm/dL Albumin/Globulin Ratio 1.0 L (1.1-1.8) Arterial Blood Potassium (3.6-5.2) mmol/L Venous Blood Potassium 6.9 H* (3.6-5.2) mmol/L Urine Color (YELLOW) Urine Appearance (CLEAR) Urine pH (4.7-8.0) Ur Specific [place] (1.005-1.035) Urine Protein (<30 mg/dL) mg/dL Urine Glucose (UA) (NEGATIVE) mg/dL Urine Ketones (NEGATIVE) mg/dL Urine Blood (NEGATIVE) Urine Nitrate (NEGATIVE) Urine Bilirubin (NEGATIVE) Urine Urobilinogen (<1 E.U./dL) E.U./dL Ur Leukocyte Esterase (NEGATIVE) Vane/uL Urine RBC (0-2) /hpf Urine WBC (0-6) /hpf Ur Epithelial Cells (0-5) /hpf Urine Bacteria (NONE) /hpf Hyaline Casts (NONE) /hpf Coarse Granular Casts (NONE) /hpf Urine Eosinophils Ur Random Creatinine mg/dL Ur Random Sodium meq/L Laboratory Results - last 24 hr 07/01/18 07/01/18 07/01/18 08:50 08:50 09:10 WBC RBC Hgb Hct MCV MCH MCHC RDW Plt Count MPV Neut % (Auto) Lymph % (Auto) [place] % (Auto) Eos % (Auto) Baso % (Auto) Lymph # (Auto) [place] # (Auto) Eos # (Auto) Baso # (Auto) Absolute Neuts (auto) pCO2 pO2 53 HCO3 ABG pH ABG Total CO2 ABG O2 Saturation ABG O2 Content ABG Base Excess ABG Hemoglobin ABG Carboxyhemoglobin POC ABG HHb (Measured) ABG Methemoglobin ABG O2 Capacity ABG Potassium VBG pH 7.31 L VBG pCO2 36.0 L VBG HCO3 18.1 L VBG Total CO2 19.2 L VBG O2 Sat (Calc) 86.5 H VBG Base Excess -7.4 L VBG Potassium 6.9 H* Hgb O2 Saturation Glucose 123 H Lactate 3.6 H FiO2 21.0 Crit Value Called To Steffanie ortiz Crit Value Called By [facility] Blood Gas Notified Time 922 Sodium 138 132.0 Potassium 6.9 H* D Chloride 96 L 96.0 L Carbon Dioxide 18 L Anion Gap 31 H BUN 101 H Creatinine 9.4 H* D Est GFR ( Amer) 7 Est GFR (Non-Af Amer) 6 Random Glucose 131 H Calcium 10.2 Phosphorus 2.7 Magnesium 2.1 Total Bilirubin 1.8 H AST 213 H D ALT 60 H Alkaline Phosphatase 103 Total Creatine Kinase 7222 H CK-MB (CK-2) 91.2 H CK-MB (CK-2) % 1.3 L Troponin I 0.16 H* D C-React Prot High Sens > 15.00 H NT-Pro-B Natriuret Pep 6170 H Total Protein 8.7 H Albumin 4.4 Globulin 4.3 Albumin/Globulin Ratio 1.0 L Arterial Blood Potassium Venous Blood Potassium 6.9 H* Urine Color Urine Appearance Urine pH Ur Specific [place] Urine Protein Urine Glucose (UA) Urine Ketones Urine Blood Urine Nitrate Urine Bilirubin Urine Urobilinogen Ur Leukocyte Esterase Urine RBC Urine WBC Ur Epithelial Cells Urine Bacteria Hyaline Casts Coarse Granular Casts Urine Eosinophils Ur Random Creatinine Ur Random Sodium 07/01/18 07/01/18 07/01/18 14:00 14:00 14:00 WBC 12.7 H D RBC 4.44 Hgb 14.0 Hct 40.2 L MCV 90.5 MCH 31.5 MCHC 34.8 RDW 14.2 Plt Count 206 MPV 10.9 Neut % (Auto) 84.6 H Lymph % (Auto) 7.4 L [place] % (Auto) 7.7 H Eos % (Auto) 0.1 L Baso % (Auto) 0.2 Lymph # (Auto) 0.9 L [place] # (Auto) 1.0 H Eos # (Auto) 0.0 Baso # (Auto) 0.02 Absolute Neuts (auto) 10.74 H pCO2 pO2 78 H HCO3 ABG pH ABG Total CO2 ABG O2 Saturation ABG O2 Content ABG Base Excess ABG Hemoglobin ABG Carboxyhemoglobin POC ABG HHb (Measured) ABG Methemoglobin ABG O2 Capacity ABG Potassium VBG pH 7.37 VBG pCO2 37.0 L VBG HCO3 21.4 VBG Total CO2 22.5 VBG O2 Sat (Calc) 96.7 H VBG Base Excess -3.4 L VBG Potassium 5.4 H Hgb O2 Saturation Glucose 150 H Lactate 2.6 H FiO2 21.0 Crit Value Called To [place] Crit Value Called By [facility] Blood Gas Notified Time 1415 Sodium 134.0 139 Potassium 5.5 H Chloride 100.0 99 Carbon Dioxide 23 Anion Gap 24 H BUN 113 H Creatinine 9.1 H* Est GFR ( Amer) 7 Est GFR (Non-Af Amer) 6 Random Glucose 153 H Calcium 9.4 Phosphorus 2.4 L Magnesium 2.1 Total Bilirubin 1.1 AST 241 H ALT 67 H Alkaline Phosphatase 91 Total Creatine Kinase CK-MB (CK-2) CK-MB (CK-2) % Troponin I C-React Prot High Sens NT-Pro-B Natriuret Pep Total Protein 7.6 Albumin 3.8 Globulin 3.8 Albumin/Globulin Ratio 1.0 L Arterial Blood Potassium Venous Blood Potassium 5.4 H Urine Color Urine Appearance Urine pH Ur Specific [place] Urine Protein Urine Glucose (UA) Urine Ketones Urine Blood Urine Nitrate Urine Bilirubin Urine Urobilinogen Ur Leukocyte Esterase Urine RBC Urine WBC Ur Epithelial Cells Urine Bacteria Hyaline Casts Coarse Granular Casts Urine Eosinophils Ur Random Creatinine Ur Random Sodium 07/01/18 07/01/18 07/01/18 17:40 18:20 18:20 WBC RBC Hgb Hct MCV MCH MCHC RDW Plt Count MPV Neut % (Auto) Lymph % (Auto) [place] % (Auto) Eos % (Auto) Baso % (Auto) Lymph # (Auto) [place] # (Auto) Eos # (Auto) Baso # (Auto) Absolute Neuts (auto) pCO2 32 L pO2 93.0 HCO3 19.4 L ABG pH 7.39 ABG Total CO2 20.4 L ABG O2 Saturation 98.4 H ABG O2 Content ABG Base Excess -4.6 L ABG Hemoglobin ABG Carboxyhemoglobin POC ABG HHb (Measured) ABG Methemoglobin ABG O2 Capacity ABG Potassium 5.4 H VBG pH VBG pCO2 VBG HCO3 VBG Total CO2 VBG O2 Sat (Calc) VBG Base Excess VBG Potassium Hgb O2 Saturation Glucose 111 H Lactate 1.7 FiO2 30.0 Crit Value Called To Crit Value Called By Blood Gas Notified Time Sodium 136.0 Cancelled 140 Potassium Cancelled 5.9 H* Chloride 105.0 Cancelled 100 Carbon Dioxide Cancelled 21 Anion Gap Cancelled 25 H BUN Cancelled 114 H Creatinine 9.0 H* Est GFR ( Amer) Cancelled 7 Est GFR (Non-Af Amer) Cancelled 6 Random Glucose Cancelled 119 H Calcium Cancelled 9.1 Phosphorus Magnesium Total Bilirubin Cancelled AST Cancelled ALT Cancelled Alkaline Phosphatase Cancelled Total Creatine Kinase 8615 H CK-MB (CK-2) 85.0 H CK-MB (CK-2) % 1.0 L Troponin I 0.10 D C-React Prot High Sens NT-Pro-B Natriuret Pep Total Protein Cancelled Albumin Cancelled Globulin Cancelled Albumin/Globulin Ratio Cancelled Arterial Blood Potassium 5.4 H Venous Blood Potassium Urine Color Urine Appearance Urine pH Ur Specific [place] Urine Protein Urine Glucose (UA) Urine Ketones Urine Blood Urine Nitrate Urine Bilirubin Urine Urobilinogen Ur Leukocyte Esterase Urine RBC Urine WBC Ur Epithelial Cells Urine Bacteria Hyaline Casts Coarse Granular Casts Urine Eosinophils Ur Random Creatinine Ur Random Sodium 07/01/18 07/01/18 07/01/18 18:20 18:40 22:00 WBC RBC Hgb Hct MCV MCH MCHC RDW Plt Count MPV Neut % (Auto) Lymph % (Auto) [place] % (Auto) Eos % (Auto) Baso % (Auto) Lymph # (Auto) [place] # (Auto) Eos # (Auto) Baso # (Auto) Absolute Neuts (auto) pCO2 pO2 85 H HCO3 ABG pH ABG Total CO2 ABG O2 Saturation ABG O2 Content ABG Base Excess ABG Hemoglobin ABG Carboxyhemoglobin POC ABG HHb (Measured) ABG Methemoglobin ABG O2 Capacity ABG Potassium VBG pH 7.33 VBG pCO2 39.0 L VBG HCO3 20.6 L VBG Total CO2 21.8 L VBG O2 Sat (Calc) 97.5 H VBG Base Excess -4.9 L VBG Potassium 5.8 H Hgb O2 Saturation Glucose 115 H Lactate 1.9 FiO2 21.0 Crit Value Called To Crit Value Called By Blood Gas Notified Time Sodium 136.0 140 Potassium 6.2 H* Chloride 102.0 103 Carbon Dioxide 20 L Anion Gap 23 H BUN 118 H Creatinine 9.3 H* Est GFR ( Amer) 7 Est GFR (Non-Af Amer) 6 Random Glucose 126 H Calcium 8.9 Phosphorus Magnesium Total Bilirubin AST ALT Alkaline Phosphatase Total Creatine Kinase CK-MB (CK-2) CK-MB (CK-2) % Troponin I 0.09 C-React Prot High Sens NT-Pro-B Natriuret Pep Total Protein Albumin Globulin Albumin/Globulin Ratio Arterial Blood Potassium Venous Blood Potassium 5.8 H Urine Color Dark yellow Urine Appearance Slight-cloudy Urine pH 6.0 Ur Specific [place] 1.025 Urine Protein >=300 H Urine Glucose (UA) Negative Urine Ketones Negative Urine Blood Large H Urine Nitrate Negative Urine Bilirubin Moderate H Urine Urobilinogen 0.2 Ur Leukocyte Esterase Negative Urine RBC 5 - 10 H Urine WBC 0 - 2 Ur Epithelial Cells None Urine Bacteria Few Hyaline Casts 0 - 2 Coarse Granular Casts Trace Urine Eosinophils Ur Random Creatinine Ur Random Sodium 07/02/18 07/02/18 07/02/18 02:10 02:53 02:53 WBC RBC Hgb Hct MCV MCH MCHC RDW Plt Count MPV Neut % (Auto) Lymph % (Auto) [place] % (Auto) Eos % (Auto) Baso % (Auto) Lymph # (Auto) [place] # (Auto) Eos # (Auto) Baso # (Auto) Absolute Neuts (auto) pCO2 pO2 HCO3 ABG pH ABG Total CO2 ABG O2 Saturation ABG O2 Content ABG Base Excess ABG Hemoglobin ABG Carboxyhemoglobin POC ABG HHb (Measured) ABG Methemoglobin ABG O2 Capacity ABG Potassium VBG pH VBG pCO2 VBG HCO3 VBG Total CO2 VBG O2 Sat (Calc) VBG Base Excess VBG Potassium Hgb O2 Saturation Glucose Lactate FiO2 Crit Value Called To Crit Value Called By Blood Gas Notified Time Sodium 142 Potassium 5.7 H* Chloride 102 Carbon Dioxide 22 Anion Gap 24 H BUN 121 H* Creatinine 9.3 H* Est GFR ( Amer) 7 Est GFR (Non-Af Amer) 6 Random Glucose 163 H Calcium 8.7 Phosphorus Magnesium Total Bilirubin AST ALT Alkaline Phosphatase Total Creatine Kinase CK-MB (CK-2) CK-MB (CK-2) % Troponin I C-React Prot High Sens NT-Pro-B Natriuret Pep Total Protein Albumin Globulin Albumin/Globulin Ratio Arterial Blood Potassium Venous Blood Potassium Urine Color Urine Appearance Urine pH Ur Specific [place] Urine Protein Urine Glucose (UA) Urine Ketones Urine Blood Urine Nitrate Urine Bilirubin Urine Urobilinogen Ur Leukocyte Esterase Urine RBC Urine WBC Ur Epithelial Cells Urine Bacteria Hyaline Casts Coarse Granular Casts Urine Eosinophils Negative Ur Random Creatinine 74 Ur Random Sodium 87 07/02/18 07/02/18 07/02/18 04:40 05:30 05:30 WBC 8.0 D RBC 3.81 Hgb 11.7 L D Hct 34.5 L MCV 90.6 MCH 30.7 MCHC 33.9 RDW 14.4 Plt Count 144 MPV 10.1 Neut % (Auto) 82.5 H Lymph % (Auto) 7.0 L [place] % (Auto) 10.1 H Eos % (Auto) 0.4 L Baso % (Auto) 0.0 Lymph # (Auto) 0.6 L [place] # (Auto) 0.8 H Eos # (Auto) 0.0 Baso # (Auto) 0.00 Absolute Neuts (auto) 6.61 H pCO2 38 pO2 95.0 HCO3 31.0 H ABG pH 7.52 H ABG Total CO2 32.2 H ABG O2 Saturation 98.5 H ABG O2 Content 23.4 H ABG Base Excess 7.6 H ABG Hemoglobin 17.4 ABG Carboxyhemoglobin 1.5 POC ABG HHb (Measured) 1.5 ABG Methemoglobin 1.4 ABG O2 Capacity 23.8 ABG Potassium VBG pH VBG pCO2 VBG HCO3 VBG Total CO2 VBG O2 Sat (Calc) VBG Base Excess VBG Potassium Hgb O2 Saturation 95.6 Glucose Lactate FiO2 32.0 Crit Value Called To Crit Value Called By Blood Gas Notified Time Sodium 142 Potassium 4.9 Chloride 99 Carbon Dioxide 27 Anion Gap 21 H BUN 124 H* Creatinine 9.3 H* Est GFR ( Amer) 7 Est GFR (Non-Af Amer) 6 Random Glucose 222 H Calcium 8.3 L Phosphorus 2.7 Magnesium 2.3 H Total Bilirubin 1.0 AST 160 H D ALT 55 Alkaline Phosphatase 71 Total Creatine Kinase CK-MB (CK-2) CK-MB (CK-2) % Troponin I C-React Prot High Sens NT-Pro-B Natriuret Pep Total Protein 6.3 Albumin 3.1 Globulin 3.2 Albumin/Globulin Ratio 1.0 L Arterial Blood Potassium Venous Blood Potassium Urine Color Urine Appearance Urine pH Ur Specific [place] Urine Protein Urine Glucose (UA) Urine Ketones Urine Blood Urine Nitrate Urine Bilirubin Urine Urobilinogen Ur Leukocyte Esterase Urine RBC Urine WBC Ur Epithelial Cells Urine Bacteria Hyaline Casts Coarse Granular Casts Urine Eosinophils Ur Random Creatinine Ur Random Sodium Radiology Impressions: Radiology Impressions Chest X-Ray 07/01/18 08:47 IMPRESSION: No active disease. Abdomen/Pelvis CT 07/01/18 08:49 IMPRESSION: There is a ventral hernia to the left of midline adjacent to the left lower quadrant colostomy site. There is dilatation of small bowel loops proximal to the hernia as well as within the hernia itself. Findings are consistent with incarcerated hernia with partial small bowel obstruction. The dilated bowel loop within the hernia sac measures 7.7 cm in diameter. Renal Ultrasound 07/01/18 10:59 IMPRESSION: Unremarkable renal sonogram.No significant interval change compared to the prior examination(s). Fingerstick Blood Sugar Results: 125 Review of Systems - Review of Systems Review of Systems: 12 point ROS completed and negative except as described in HPI. Critical Care Progress Note - Nutrition Nutrition: Nutrition Category Date Time Status NPO Diet [DIET] Diets 07/01/18 Lunch Ordered Assessment/Plan - Assessment and Plan (Free Text) Assessment: 52 year old male with past medical history of crohn's disease s/p colostomy, Susac syndrome, psoriasis, cerebral vasculitis with bilateral hearing loss, depression who presents in acute renal failure and sepsis 2/2 bowel obstruction. Neuro: -AAOx3, no FND, moving extremities past midline. -Monitor neuro status. -Reorient patient as necessary. Cardio: -RRR, normotensive, no signs of HD compromise -F/U echo -Maintain MAP>65. -Monitor for S/S, HD compromise. Pulm: -No signs of respiratory distress. CTA B/L -Maintain O2 saturation >90%. -O2 NC PRN -aspiration precautions, fall precautions -CXR 07/01/18 neg -Elevate bed to 30 degrees GI: 07/01/18 CT abd/pel: incarcerated ventral hernia with partial SBO adjacent to colostomy. -NPO -Protonix -Pain control with Morphine -Dr. Hope on consult -Gen Surg on consult- Dr. Voss- no acute plan for OR at this time, possible Crohn's flare /Nephro: -Acute renal failure, Cr remains 9.3, BMP q6h -Improving hyperkalemia, normal this AM -Nephro on consult- Dr. Rice -Continue bicarb drip per nephro -Estrada in place, 750 cc out yesterday -7 L IVF thus far, will continue on maintenance IVF D5 bicarb@150 cc/hr per nephro -F/u myoglobin -repeat CK remains elevated in setting of rhabdo and dehydration -Continue monitoring. -Daily weights, Strict Is and Os -Replete electrolytes as needed. -Maintain euvolemia. Endocrinology: -Random glucose: 131 -Maintain euglycemia. Heme/Onc: -H/H stable -No signs of HD compromise. -Dr. López on consult for Hx of Susac syndrome ID: -Afebrile, no leukocytosis present -Zosyn BID renally dosed -BCx one bottle growing gram pos cocci -Lactate 3.6>2.6>1.7 -ABG 07/02 shows slight alkalosis, on bicarb drip -Follow up BCx, UCx -Monitor for signs and symptoms of infection. DVT prophylaxis: SCDs Patient seen, case reviewed and plan approved by Dr. Regan Tyson. Lennox Pineda, PGY-1 <Curt Tyson - Last Filed: 07/02/18 16:49> CCU Objective - Vital Signs / Intake & Output Vital Signs (Last 4 hours): Vital Signs Temp Pulse Resp BP Pulse Ox 07/02/18 16:00 100.2 F H 107 H 22 133/61 95 07/02/18 15:59 100.2 F H 102 H 96 07/02/18 15:58 100.2 F H 101 H 95 07/02/18 15:50 100.2 F H 102 H 18 95 07/02/18 15:43 100.2 F H 103 H 95 07/02/18 15:42 100.2 F H 102 H 95 07/02/18 15:41 100.2 F H 102 H 95 07/02/18 15:40 100.2 F H 101 H 95 07/02/18 15:34 100.0 F H 104 H 95 07/02/18 15:30 100.0 F H 103 H 14 95 07/02/18 15:26 100.0 F H 104 H 95 07/02/18 15:20 100.0 F H 105 H 17 95 07/02/18 15:16 99.9 F H 102 H 95 07/02/18 15:15 100.0 F H 104 H 95 07/02/18 15:10 99.9 F H 103 H 17 95 07/02/18 15:04 99.9 F H 104 H 95 07/02/18 15:01 99.9 F H 104 H 94 L 07/02/18 15:00 140/65 07/02/18 14:59 99.9 F H 104 H 96 07/02/18 14:50 99.9 F H 104 H 14 95 07/02/18 14:45 99.9 F H 101 H 96 07/02/18 14:41 99.9 F H 102 H 95 07/02/18 14:40 99.9 F H 105 H 19 95 07/02/18 14:32 99.9 F H 103 H 96 07/02/18 14:30 99.9 F H 102 H 22 96 07/02/18 14:20 99.9 F H 97 H 25 H 97 07/02/18 14:10 99.9 F H 97 H 23 97 07/02/18 14:00 99.9 F H 100 H 24 131/57 L 97 07/02/18 13:50 99.9 F H 102 H 23 96 07/02/18 13:41 99.9 F H 107 H 96 07/02/18 13:40 99.9 F H 104 H 17 96 07/02/18 13:30 99.9 F H 106 H 15 96 07/02/18 13:29 99.9 F H 106 H 95 07/02/18 13:27 99.7 F H 107 H 96 07/02/18 13:20 99.7 F H 105 H 23 95 07/02/18 13:12 99.7 F H 98 H 96 07/02/18 13:10 99.7 F H 99 H 19 96 07/02/18 13:02 99.7 F H 101 H 96 07/02/18 13:00 99.7 F H 104 H 24 140/67 97 07/02/18 12:58 99.7 F H 101 H 96 07/02/18 12:56 99.7 F H 102 H 96 07/02/18 12:50 99.7 F H 103 H 23 96 Intake and Output (Last 8hrs): Intake & Output 07/02/18 07/02/18 07/02/18 06:59 14:59 22:59 Intake Total 1625 Output Total 480 Balance 1145 Weight 100.698 kg Intake: IV 1525 Left Upper arm 1525 Oral 0 Tube Feeding 0 TPN/PPN 0 Blood Product 0 Lipid 0 Albumin 0 Other 100 Output: Urine 480 Urethral (Estrada) 480 Stool 0 Urine/Stool Mix 0 Emesis 0 Oral Regurgitation 0 Other 0 Other: # Voids Urethral (Estrada) 0 # Bowel Movements 0 - Medications Active Medications: Active Medications Generic Name Dose Route Start Last Admin Trade Name Freq PRN Reason Stop Dose Admin Famotidine 20 mg 07/01/18 13:15 07/02/18 09:26 Pepcid IVP 20 mg DAILY SANTINO Administration Piperacillin Sod/Tazobactam Sod 100 mls @ 25 mls/hr 07/02/18 10:00 07/02/18 09:26 Zosyn 3.375 In Ns 100ml IVPB 07/11/18 10:01 25 mls/hr Q12 SANTINO Administration Protocol Sodium Bicarbonate 100 meq/ 1,100 mls @ 150 mls/hr 07/01/18 23:45 07/02/18 14:45 Dextrose IV 150 mls/hr .[id number] SANTINO Administration Metronidazole 500 mg in 100 mls @ 100 mls/hr 07/02/18 16:30 Flagyl IVPB Q8 SANTINO Protocol Methylprednisolone 60 mg 07/02/18 16:21 Solu-Medrol IVP 07/04/18 16:22 Q12 SANTINO Morphine Sulfate 2 mg 07/01/18 15:48 07/02/18 04:33 Morphine IVP 2 mg Q4H PRN Administration Pain, severe (8-10) - Patient Studies Lab Studies: Microbiology Studies 07/01/18 08:50 S.aureus & Coag-Neg Staph PNA FISH - Final Blood Blood Culture - Preliminary Gram Positive Cocci Gram Stain - Final 07/01/18 09:10 Blood Culture - Preliminary Blood NO GROWTH AFTER 24 HOURS Lab Studies 07/02/18 07/02/18 07/02/18 Range/Units 12:24 05:30 05:30 WBC 8.0 D (4.5-11.0) 10^3/uL RBC 3.81 (3.5-6.1) 10^6/uL Hgb 11.7 L D (14.0-18.0) g/dL Hct 34.5 L (42.0-52.0) % MCV 90.6 (80.0-105.0) fl MCH 30.7 (25.0-35.0) pg MCHC 33.9 (31.0-37.0) g/dl RDW 14.4 (11.5-14.5) % Plt Count 144 (120.0-450.0) 10^3/uL MPV 10.1 (7.0-11.0) fl Neut % (Auto) 82.5 H (50.0-68.0) % Lymph % (Auto) 7.0 L (22.0-35.0) % [place] % (Auto) 10.1 H (1.0-6.0) % Eos % (Auto) 0.4 L (1.5-5.0) % Baso % (Auto) 0.0 (0.0-3.0) % Lymph # (Auto) 0.6 L (1.2-3.4) [place] # (Auto) 0.8 H (0.1-0.6) Eos # (Auto) 0.0 (0.0-0.7) Baso # (Auto) 0.00 (0.0-2.0) K/mm3 Absolute Neuts (auto) 6.61 H (1.4-6.5) pCO2 (35-45) mm/Hg pO2 (30-55) mm/Hg HCO3 (21-28) mmol/L ABG pH (7.35-7.45) ABG Total CO2 (22-28) mmol.L ABG O2 Saturation (95-98) % ABG O2 Content (15-23) ML/dl ABG Base Excess (-2.0-3.0) mmol/L ABG Hemoglobin (11.7-17.4) g/dL ABG Carboxyhemoglobin (0.5-1.5) % POC ABG HHb (Measured) (0-5) % ABG Methemoglobin (0.0-3.0) % ABG O2 Capacity (16-24) mL/dl ABG Potassium (3.6-5.2) mmol/L VBG pH (7.32-7.43) VBG pCO2 (40-60) VBG HCO3 (21-28) mmol/l VBG Total CO2 (22-28) mmol.L VBG O2 Sat (Calc) (40-65) % VBG Base Excess (0.0-2.0) mmol/L VBG Potassium (3.6-5.2) mmol/L Hgb O2 Saturation (95.0-98.0) % Sodium 142 142 (132-148) mmol/L Chloride 98 99 (98-107) mmol/L Glucose (75-110) mg/dl Lactate (0.7-2.1) mmol/L FiO2 % Crit Value Called To Crit Value Called By Blood Gas Notified Time Potassium 4.8 4.9 Carbon Dioxide 29 27 Anion Gap 20 21 H BUN 129 H* 124 H* Creatinine 9.2 H* 9.3 H* (0.8-1.5) mg/dl Est GFR ( Amer) 7 7 Est GFR (Non-Af Amer) 6 6 Random Glucose 148 H 222 H Calcium 8.5 8.3 L Phosphorus 2.7 (2.5-4.5) mg/dL Magnesium 2.3 H (1.7-2.2) mg/dL Total Bilirubin 1.0 AST 160 H D ALT 55 Alkaline Phosphatase 71 Total Creatine Kinase (35-230) U/L CK-MB (CK-2) (0.0-3.6) ng/mL CK-MB (CK-2) % (2.5-3.0) % Troponin I ng/mL Total Protein 6.3 Albumin 3.1 Globulin 3.2 Albumin/Globulin Ratio 1.0 L Arterial Blood Potassium (3.6-5.2) mmol/L Venous Blood Potassium (3.6-5.2) mmol/L Urine Color (YELLOW) Urine Appearance (CLEAR) Urine pH (4.7-8.0) Ur Specific [place] (1.005-1.035) Urine Protein (<30 mg/dL) mg/dL Urine Glucose (UA) (NEGATIVE) mg/dL Urine Ketones (NEGATIVE) mg/dL Urine Blood (NEGATIVE) Urine Nitrate (NEGATIVE) Urine Bilirubin (NEGATIVE) Urine Urobilinogen (<1 E.U./dL) E.U./dL Ur Leukocyte Esterase (NEGATIVE) Vane/uL Urine RBC (0-2) /hpf Urine WBC (0-6) /hpf Ur Epithelial Cells (0-5) /hpf Urine Bacteria (NONE) /hpf Hyaline Casts (NONE) /hpf Coarse Granular Casts (NONE) /hpf Urine Eosinophils Ur Random Creatinine mg/dL Ur Random Sodium meq/L 07/02/18 07/02/18 07/02/18 Range/Units 05:00 04:40 02:53 WBC (4.5-11.0) 10^3/uL RBC (3.5-6.1) 10^6/uL Hgb (14.0-18.0) g/dL Hct (42.0-52.0) % MCV (80.0-105.0) fl MCH (25.0-35.0) pg MCHC (31.0-37.0) g/dl RDW (11.5-14.5) % Plt Count (120.0-450.0) 10^3/uL MPV (7.0-11.0) fl Neut % (Auto) (50.0-68.0) % Lymph % (Auto) (22.0-35.0) % [place] % (Auto) (1.0-6.0) % Eos % (Auto) (1.5-5.0) % Baso % (Auto) (0.0-3.0) % Lymph # (Auto) (1.2-3.4) [place] # (Auto) (0.1-0.6) Eos # (Auto) (0.0-0.7) Baso # (Auto) (0.0-2.0) K/mm3 Absolute Neuts (auto) (1.4-6.5) pCO2 38 (35-45) mm/Hg pO2 95.0 (30-55) mm/Hg HCO3 31.0 H (21-28) mmol/L ABG pH 7.52 H (7.35-7.45) ABG Total CO2 32.2 H (22-28) mmol.L ABG O2 Saturation 98.5 H (95-98) % ABG O2 Content 23.4 H (15-23) ML/dl ABG Base Excess 7.6 H (-2.0-3.0) mmol/L ABG Hemoglobin 17.4 (11.7-17.4) g/dL ABG Carboxyhemoglobin 1.5 (0.5-1.5) % POC ABG HHb (Measured) 1.5 (0-5) % ABG Methemoglobin 1.4 (0.0-3.0) % ABG O2 Capacity 23.8 (16-24) mL/dl ABG Potassium (3.6-5.2) mmol/L VBG pH (7.32-7.43) VBG pCO2 (40-60) VBG HCO3 (21-28) mmol/l VBG Total CO2 (22-28) mmol.L VBG O2 Sat (Calc) (40-65) % VBG Base Excess (0.0-2.0) mmol/L VBG Potassium (3.6-5.2) mmol/L Hgb O2 Saturation 95.6 (95.0-98.0) % Sodium Cancelled (132-148) mmol/L Chloride Cancelled (98-107) mmol/L Glucose (75-110) mg/dl Lactate (0.7-2.1) mmol/L FiO2 32.0 % Crit Value Called To Crit Value Called By Blood Gas Notified Time Potassium Cancelled Carbon Dioxide Cancelled Anion Gap Cancelled BUN Cancelled Creatinine (0.8-1.5) mg/dl Est GFR ( Amer) Cancelled Est GFR (Non-Af Amer) Cancelled Random Glucose Cancelled Calcium Cancelled Phosphorus (2.5-4.5) mg/dL Magnesium (1.7-2.2) mg/dL Total Bilirubin AST ALT Alkaline Phosphatase Total Creatine Kinase 4980 H (35-230) U/L CK-MB (CK-2) 44.0 H (0.0-3.6) ng/mL CK-MB (CK-2) % 0.9 L (2.5-3.0) % Troponin I ng/mL Total Protein Albumin Globulin Albumin/Globulin Ratio Arterial Blood Potassium (3.6-5.2) mmol/L Venous Blood Potassium (3.6-5.2) mmol/L Urine Color (YELLOW) Urine Appearance (CLEAR) Urine pH (4.7-8.0) Ur Specific [place] (1.005-1.035) Urine Protein (<30 mg/dL) mg/dL Urine Glucose (UA) (NEGATIVE) mg/dL Urine Ketones (NEGATIVE) mg/dL Urine Blood (NEGATIVE) Urine Nitrate (NEGATIVE) Urine Bilirubin (NEGATIVE) Urine Urobilinogen (<1 E.U./dL) E.U./dL Ur Leukocyte Esterase (NEGATIVE) Vane/uL Urine RBC (0-2) /hpf Urine WBC (0-6) /hpf Ur Epithelial Cells (0-5) /hpf Urine Bacteria (NONE) /hpf Hyaline Casts (NONE) /hpf Coarse Granular Casts (NONE) /hpf Urine Eosinophils Negative Ur Random Creatinine mg/dL Ur Random Sodium meq/L 07/02/18 07/02/18 07/01/18 Range/Units 02:53 02:10 22:00 WBC (4.5-11.0) 10^3/uL RBC (3.5-6.1) 10^6/uL Hgb (14.0-18.0) g/dL Hct (42.0-52.0) % MCV (80.0-105.0) fl MCH (25.0-35.0) pg MCHC (31.0-37.0) g/dl RDW (11.5-14.5) % Plt Count (120.0-450.0) 10^3/uL MPV (7.0-11.0) fl Neut % (Auto) (50.0-68.0) % Lymph % (Auto) (22.0-35.0) % [place] % (Auto) (1.0-6.0) % Eos % (Auto) (1.5-5.0) % Baso % (Auto) (0.0-3.0) % Lymph # (Auto) (1.2-3.4) [place] # (Auto) (0.1-0.6) Eos # (Auto) (0.0-0.7) Baso # (Auto) (0.0-2.0) K/mm3 Absolute Neuts (auto) (1.4-6.5) pCO2 (35-45) mm/Hg pO2 (30-55) mm/Hg HCO3 (21-28) mmol/L ABG pH (7.35-7.45) ABG Total CO2 (22-28) mmol.L ABG O2 Saturation (95-98) % ABG O2 Content (15-23) ML/dl ABG Base Excess (-2.0-3.0) mmol/L ABG Hemoglobin (11.7-17.4) g/dL ABG Carboxyhemoglobin (0.5-1.5) % POC ABG HHb (Measured) (0-5) % ABG Methemoglobin (0.0-3.0) % ABG O2 Capacity (16-24) mL/dl ABG Potassium (3.6-5.2) mmol/L VBG pH (7.32-7.43) VBG pCO2 (40-60) VBG HCO3 (21-28) mmol/l VBG Total CO2 (22-28) mmol.L VBG O2 Sat (Calc) (40-65) % VBG Base Excess (0.0-2.0) mmol/L VBG Potassium (3.6-5.2) mmol/L Hgb O2 Saturation (95.0-98.0) % Sodium 142 140 (132-148) mmol/L Chloride 102 103 (98-107) mmol/L Glucose (75-110) mg/dl Lactate (0.7-2.1) mmol/L FiO2 % Crit Value Called To Crit Value Called By Blood Gas Notified Time Potassium 5.7 H* 6.2 H* Carbon Dioxide 22 20 L Anion Gap 24 H 23 H BUN 121 H* 118 H Creatinine 9.3 H* 9.3 H* (0.8-1.5) mg/dl Est GFR ( Amer) 7 7 Est GFR (Non-Af Amer) 6 6 Random Glucose 163 H 126 H Calcium 8.7 8.9 Phosphorus (2.5-4.5) mg/dL Magnesium (1.7-2.2) mg/dL Total Bilirubin AST ALT Alkaline Phosphatase Total Creatine Kinase (35-230) U/L CK-MB (CK-2) (0.0-3.6) ng/mL CK-MB (CK-2) % (2.5-3.0) % Troponin I 0.09 ng/mL Total Protein Albumin Globulin Albumin/Globulin Ratio Arterial Blood Potassium (3.6-5.2) mmol/L Venous Blood Potassium (3.6-5.2) mmol/L Urine Color (YELLOW) Urine Appearance (CLEAR) Urine pH (4.7-8.0) Ur Specific [place] (1.005-1.035) Urine Protein (<30 mg/dL) mg/dL Urine Glucose (UA) (NEGATIVE) mg/dL Urine Ketones (NEGATIVE) mg/dL Urine Blood (NEGATIVE) Urine Nitrate (NEGATIVE) Urine Bilirubin (NEGATIVE) Urine Urobilinogen (<1 E.U./dL) E.U./dL Ur Leukocyte Esterase (NEGATIVE) Vane/uL Urine RBC (0-2) /hpf Urine WBC (0-6) /hpf Ur Epithelial Cells (0-5) /hpf Urine Bacteria (NONE) /hpf Hyaline Casts (NONE) /hpf Coarse Granular Casts (NONE) /hpf Urine Eosinophils Ur Random Creatinine 74 mg/dL Ur Random Sodium 87 meq/L 07/01/18 07/01/18 07/01/18 Range/Units 18:40 18:20 18:20 WBC (4.5-11.0) 10^3/uL RBC (3.5-6.1) 10^6/uL Hgb (14.0-18.0) g/dL Hct (42.0-52.0) % MCV (80.0-105.0) fl MCH (25.0-35.0) pg MCHC (31.0-37.0) g/dl RDW (11.5-14.5) % Plt Count (120.0-450.0) 10^3/uL MPV (7.0-11.0) fl Neut % (Auto) (50.0-68.0) % Lymph % (Auto) (22.0-35.0) % [place] % (Auto) (1.0-6.0) % Eos % (Auto) (1.5-5.0) % Baso % (Auto) (0.0-3.0) % Lymph # (Auto) (1.2-3.4) [place] # (Auto) (0.1-0.6) Eos # (Auto) (0.0-0.7) Baso # (Auto) (0.0-2.0) K/mm3 Absolute Neuts (auto) (1.4-6.5) pCO2 (35-45) mm/Hg pO2 85 H (30-55) mm/Hg HCO3 (21-28) mmol/L ABG pH (7.35-7.45) ABG Total CO2 (22-28) mmol.L ABG O2 Saturation (95-98) % ABG O2 Content (15-23) ML/dl ABG Base Excess (-2.0-3.0) mmol/L ABG Hemoglobin (11.7-17.4) g/dL ABG Carboxyhemoglobin (0.5-1.5) % POC ABG HHb (Measured) (0-5) % ABG Methemoglobin (0.0-3.0) % ABG O2 Capacity (16-24) mL/dl ABG Potassium (3.6-5.2) mmol/L VBG pH 7.33 (7.32-7.43) VBG pCO2 39.0 L (40-60) VBG HCO3 20.6 L (21-28) mmol/l VBG Total CO2 21.8 L (22-28) mmol.L VBG O2 Sat (Calc) 97.5 H (40-65) % VBG Base Excess -4.9 L (0.0-2.0) mmol/L VBG Potassium 5.8 H (3.6-5.2) mmol/L Hgb O2 Saturation (95.0-98.0) % Sodium 136.0 140 (132-148) mmol/L Chloride 102.0 100 (98-107) mmol/L Glucose 115 H (75-110) mg/dl Lactate 1.9 (0.7-2.1) mmol/L FiO2 21.0 % Crit Value Called To Crit Value Called By Blood Gas Notified Time Potassium 5.9 H* Carbon Dioxide 21 Anion Gap 25 H BUN 114 H Creatinine 9.0 H* (0.8-1.5) mg/dl Est GFR ( Amer) 7 Est GFR (Non-Af Amer) 6 Random Glucose 119 H Calcium 9.1 Phosphorus (2.5-4.5) mg/dL Magnesium (1.7-2.2) mg/dL Total Bilirubin AST ALT Alkaline Phosphatase Total Creatine Kinase (35-230) U/L CK-MB (CK-2) (0.0-3.6) ng/mL CK-MB (CK-2) % (2.5-3.0) % Troponin I ng/mL Total Protein Albumin Globulin Albumin/Globulin Ratio Arterial Blood Potassium (3.6-5.2) mmol/L Venous Blood Potassium 5.8 H (3.6-5.2) mmol/L Urine Color Dark yellow (YELLOW) Urine Appearance Slight-cloudy (CLEAR) Urine pH 6.0 (4.7-8.0) Ur Specific [place] 1.025 (1.005-1.035) Urine Protein >=300 H (<30 mg/dL) mg/dL Urine Glucose (UA) Negative (NEGATIVE) mg/dL Urine Ketones Negative (NEGATIVE) mg/dL Urine Blood Large H (NEGATIVE) Urine Nitrate Negative (NEGATIVE) Urine Bilirubin Moderate H (NEGATIVE) Urine Urobilinogen 0.2 (<1 E.U./dL) E.U./dL Ur Leukocyte Esterase Negative (NEGATIVE) Vane/uL Urine RBC 5 - 10 H (0-2) /hpf Urine WBC 0 - 2 (0-6) /hpf Ur Epithelial Cells None (0-5) /hpf Urine Bacteria Few (NONE) /hpf Hyaline Casts 0 - 2 (NONE) /hpf Coarse Granular Casts Trace (NONE) /hpf Urine Eosinophils Ur Random Creatinine mg/dL Ur Random Sodium meq/L 07/01/18 07/01/18 07/01/18 Range/Units 18:20 17:40 09:10 WBC (4.5-11.0) 10^3/uL RBC (3.5-6.1) 10^6/uL Hgb (14.0-18.0) g/dL Hct (42.0-52.0) % MCV (80.0-105.0) fl MCH (25.0-35.0) pg MCHC (31.0-37.0) g/dl RDW (11.5-14.5) % Plt Count (120.0-450.0) 10^3/uL MPV (7.0-11.0) fl Neut % (Auto) (50.0-68.0) % Lymph % (Auto) (22.0-35.0) % [place] % (Auto) (1.0-6.0) % Eos % (Auto) (1.5-5.0) % Baso % (Auto) (0.0-3.0) % Lymph # (Auto) (1.2-3.4) [place] # (Auto) (0.1-0.6) Eos # (Auto) (0.0-0.7) Baso # (Auto) (0.0-2.0) K/mm3 Absolute Neuts (auto) (1.4-6.5) pCO2 32 L (35-45) mm/Hg pO2 93.0 53 (30-55) mm/Hg HCO3 19.4 L (21-28) mmol/L ABG pH 7.39 (7.35-7.45) ABG Total CO2 20.4 L (22-28) mmol.L ABG O2 Saturation 98.4 H (95-98) % ABG O2 Content (15-23) ML/dl ABG Base Excess -4.6 L (-2.0-3.0) mmol/L ABG Hemoglobin (11.7-17.4) g/dL ABG Carboxyhemoglobin (0.5-1.5) % POC ABG HHb (Measured) (0-5) % ABG Methemoglobin (0.0-3.0) % ABG O2 Capacity (16-24) mL/dl ABG Potassium 5.4 H (3.6-5.2) mmol/L VBG pH 7.31 L (7.32-7.43) VBG pCO2 36.0 L (40-60) VBG HCO3 18.1 L (21-28) mmol/l VBG Total CO2 19.2 L (22-28) mmol.L VBG O2 Sat (Calc) 86.5 H (40-65) % VBG Base Excess -7.4 L (0.0-2.0) mmol/L VBG Potassium 6.9 H* (3.6-5.2) mmol/L Hgb O2 Saturation (95.0-98.0) % Sodium Cancelled 136.0 132.0 (132-148) mmol/L Chloride Cancelled 105.0 96.0 L (98-107) mmol/L Glucose 111 H 123 H (75-110) mg/dl Lactate 1.7 3.6 H (0.7-2.1) mmol/L FiO2 30.0 21.0 % Crit Value Called To Steffanie ortiz Crit Value Called By [facility] Blood Gas Notified Time 922 Potassium Cancelled Carbon Dioxide Cancelled Anion Gap Cancelled BUN Cancelled Creatinine (0.8-1.5) mg/dl Est GFR ( Amer) Cancelled Est GFR (Non-Af Amer) Cancelled Random Glucose Cancelled Calcium Cancelled Phosphorus (2.5-4.5) mg/dL Magnesium (1.7-2.2) mg/dL Total Bilirubin Cancelled AST Cancelled ALT Cancelled Alkaline Phosphatase Cancelled Total Creatine Kinase 8615 H (35-230) U/L CK-MB (CK-2) 85.0 H (0.0-3.6) ng/mL CK-MB (CK-2) % 1.0 L (2.5-3.0) % Troponin I 0.10 D ng/mL Total Protein Cancelled Albumin Cancelled Globulin Cancelled Albumin/Globulin Ratio Cancelled Arterial Blood Potassium 5.4 H (3.6-5.2) mmol/L Venous Blood Potassium 6.9 H* (3.6-5.2) mmol/L Urine Color (YELLOW) Urine Appearance (CLEAR) Urine pH (4.7-8.0) Ur Specific [place] (1.005-1.035) Urine Protein (<30 mg/dL) mg/dL Urine Glucose (UA) (NEGATIVE) mg/dL Urine Ketones (NEGATIVE) mg/dL Urine Blood (NEGATIVE) Urine Nitrate (NEGATIVE) Urine Bilirubin (NEGATIVE) Urine Urobilinogen (<1 E.U./dL) E.U./dL Ur Leukocyte Esterase (NEGATIVE) Vane/uL Urine RBC (0-2) /hpf Urine WBC (0-6) /hpf Ur Epithelial Cells (0-5) /hpf Urine Bacteria (NONE) /hpf Hyaline Casts (NONE) /hpf Coarse Granular Casts (NONE) /hpf Urine Eosinophils Ur Random Creatinine mg/dL Ur Random Sodium meq/L Laboratory Results - last 24 hr 07/01/18 07/01/18 07/01/18 09:10 17:40 18:20 WBC RBC Hgb Hct MCV MCH MCHC RDW Plt Count MPV Neut % (Auto) Lymph % (Auto) Wake % (Auto) Eos % (Auto) Baso % (Auto) Lymph # (Auto) [place] # (Auto) Eos # (Auto) Baso # (Auto) Absolute Neuts (auto) pCO2 32 L pO2 53 93.0 HCO3 19.4 L ABG pH 7.39 ABG Total CO2 20.4 L ABG O2 Saturation 98.4 H ABG O2 Content ABG Base Excess -4.6 L ABG Hemoglobin ABG Carboxyhemoglobin POC ABG HHb (Measured) ABG Methemoglobin ABG O2 Capacity ABG Potassium 5.4 H VBG pH 7.31 L VBG pCO2 36.0 L VBG HCO3 18.1 L VBG Total CO2 19.2 L VBG O2 Sat (Calc) 86.5 H VBG Base Excess -7.4 L VBG Potassium 6.9 H* Hgb O2 Saturation Sodium 132.0 136.0 Cancelled Chloride 96.0 L 105.0 Cancelled Glucose 123 H 111 H Lactate 3.6 H 1.7 FiO2 21.0 30.0 Crit Value Called To Steffanie ortiz Crit Value Called By [facility] Blood Gas Notified Time 922 Potassium Cancelled Carbon Dioxide Cancelled Anion Gap Cancelled BUN Cancelled Creatinine Est GFR ( Amer) Cancelled Est GFR (Non-Af Amer) Cancelled Random Glucose Cancelled Calcium Cancelled Phosphorus Magnesium Total Bilirubin Cancelled AST Cancelled ALT Cancelled Alkaline Phosphatase Cancelled Total Creatine Kinase 8615 H CK-MB (CK-2) 85.0 H CK-MB (CK-2) % 1.0 L Troponin I 0.10 D Total Protein Cancelled Albumin Cancelled Globulin Cancelled Albumin/Globulin Ratio Cancelled Arterial Blood Potassium 5.4 H Venous Blood Potassium 6.9 H* Urine Color Urine Appearance Urine pH Ur Specific [place] Urine Protein Urine Glucose (UA) Urine Ketones Urine Blood Urine Nitrate Urine Bilirubin Urine Urobilinogen Ur Leukocyte Esterase Urine RBC Urine WBC Ur Epithelial Cells Urine Bacteria Hyaline Casts Coarse Granular Casts Urine Eosinophils Ur Random Creatinine Ur Random Sodium 07/01/18 07/01/18 07/01/18 18:20 18:20 18:40 WBC RBC Hgb Hct MCV MCH MCHC RDW Plt Count MPV Neut % (Auto) Lymph % (Auto) Wake % (Auto) Eos % (Auto) Baso % (Auto) Lymph # (Auto) [place] # (Auto) Eos # (Auto) Baso # (Auto) Absolute Neuts (auto) pCO2 pO2 85 H HCO3 ABG pH ABG Total CO2 ABG O2 Saturation ABG O2 Content ABG Base Excess ABG Hemoglobin ABG Carboxyhemoglobin POC ABG HHb (Measured) ABG Methemoglobin ABG O2 Capacity ABG Potassium VBG pH 7.33 VBG pCO2 39.0 L VBG HCO3 20.6 L VBG Total CO2 21.8 L VBG O2 Sat (Calc) 97.5 H VBG Base Excess -4.9 L VBG Potassium 5.8 H Hgb O2 Saturation Sodium 140 136.0 Chloride 100 102.0 Glucose 115 H Lactate 1.9 FiO2 21.0 Crit Value Called To Crit Value Called By Blood Gas Notified Time Potassium 5.9 H* Carbon Dioxide 21 Anion Gap 25 H BUN 114 H Creatinine 9.0 H* Est GFR ( Amer) 7 Est GFR (Non-Af Amer) 6 Random Glucose 119 H Calcium 9.1 Phosphorus Magnesium Total Bilirubin AST ALT Alkaline Phosphatase Total Creatine Kinase CK-MB (CK-2) CK-MB (CK-2) % Troponin I Total Protein Albumin Globulin Albumin/Globulin Ratio Arterial Blood Potassium Venous Blood Potassium 5.8 H Urine Color Dark yellow Urine Appearance Slight-cloudy Urine pH 6.0 Ur Specific [place] 1.025 Urine Protein >=300 H Urine Glucose (UA) Negative Urine Ketones Negative Urine Blood Large H Urine Nitrate Negative Urine Bilirubin Moderate H Urine Urobilinogen 0.2 Ur Leukocyte Esterase Negative Urine RBC 5 - 10 H Urine WBC 0 - 2 Ur Epithelial Cells None Urine Bacteria Few Hyaline Casts 0 - 2 Coarse Granular Casts Trace Urine Eosinophils Ur Random Creatinine Ur Random Sodium 07/01/18 07/02/18 07/02/18 22:00 02:10 02:53 WBC RBC Hgb Hct MCV MCH MCHC RDW Plt Count MPV Neut % (Auto) Lymph % (Auto) Wake % (Auto) Eos % (Auto) Baso % (Auto) Lymph # (Auto) [place] # (Auto) Eos # (Auto) Baso # (Auto) Absolute Neuts (auto) pCO2 pO2 HCO3 ABG pH ABG Total CO2 ABG O2 Saturation ABG O2 Content ABG Base Excess ABG Hemoglobin ABG Carboxyhemoglobin POC ABG HHb (Measured) ABG Methemoglobin ABG O2 Capacity ABG Potassium VBG pH VBG pCO2 VBG HCO3 VBG Total CO2 VBG O2 Sat (Calc) VBG Base Excess VBG Potassium Hgb O2 Saturation Sodium 140 142 Chloride 103 102 Glucose Lactate FiO2 Crit Value Called To Crit Value Called By Blood Gas Notified Time Potassium 6.2 H* 5.7 H* Carbon Dioxide 20 L 22 Anion Gap 23 H 24 H BUN 118 H 121 H* Creatinine 9.3 H* 9.3 H* Est GFR ( Amer) 7 7 Est GFR (Non-Af Amer) 6 6 Random Glucose 126 H 163 H Calcium 8.9 8.7 Phosphorus Magnesium Total Bilirubin AST ALT Alkaline Phosphatase Total Creatine Kinase CK-MB (CK-2) CK-MB (CK-2) % Troponin I 0.09 Total Protein Albumin Globulin Albumin/Globulin Ratio Arterial Blood Potassium Venous Blood Potassium Urine Color Urine Appearance Urine pH Ur Specific [place] Urine Protein Urine Glucose (UA) Urine Ketones Urine Blood Urine Nitrate Urine Bilirubin Urine Urobilinogen Ur Leukocyte Esterase Urine RBC Urine WBC Ur Epithelial Cells Urine Bacteria Hyaline Casts Coarse Granular Casts Urine Eosinophils Ur Random Creatinine 74 Ur Random Sodium 87 07/02/18 07/02/18 07/02/18 02:53 04:40 05:00 WBC RBC Hgb Hct MCV MCH MCHC RDW Plt Count MPV Neut % (Auto) Lymph % (Auto) [place] % (Auto) Eos % (Auto) Baso % (Auto) Lymph # (Auto) [place] # (Auto) Eos # (Auto) Baso # (Auto) Absolute Neuts (auto) pCO2 38 pO2 95.0 HCO3 31.0 H ABG pH 7.52 H ABG Total CO2 32.2 H ABG O2 Saturation 98.5 H ABG O2 Content 23.4 H ABG Base Excess 7.6 H ABG Hemoglobin 17.4 ABG Carboxyhemoglobin 1.5 POC ABG HHb (Measured) 1.5 ABG Methemoglobin 1.4 ABG O2 Capacity 23.8 ABG Potassium VBG pH VBG pCO2 VBG HCO3 VBG Total CO2 VBG O2 Sat (Calc) VBG Base Excess VBG Potassium Hgb O2 Saturation 95.6 Sodium Cancelled Chloride Cancelled Glucose Lactate FiO2 32.0 Crit Value Called To Crit Value Called By Blood Gas Notified Time Potassium Cancelled Carbon Dioxide Cancelled Anion Gap Cancelled BUN Cancelled Creatinine Est GFR ( Amer) Cancelled Est GFR (Non-Af Amer) Cancelled Random Glucose Cancelled Calcium Cancelled Phosphorus Magnesium Total Bilirubin AST ALT Alkaline Phosphatase Total Creatine Kinase 4980 H CK-MB (CK-2) 44.0 H CK-MB (CK-2) % 0.9 L Troponin I Total Protein Albumin Globulin Albumin/Globulin Ratio Arterial Blood Potassium Venous Blood Potassium Urine Color Urine Appearance Urine pH Ur Specific [place] Urine Protein Urine Glucose (UA) Urine Ketones Urine Blood Urine Nitrate Urine Bilirubin Urine Urobilinogen Ur Leukocyte Esterase Urine RBC Urine WBC Ur Epithelial Cells Urine Bacteria Hyaline Casts Coarse Granular Casts Urine Eosinophils Negative Ur Random Creatinine Ur Random Sodium 07/02/18 07/02/18 07/02/18 05:30 05:30 12:24 WBC 8.0 D RBC 3.81 Hgb 11.7 L D Hct 34.5 L MCV 90.6 MCH 30.7 MCHC 33.9 RDW 14.4 Plt Count 144 MPV 10.1 Neut % (Auto) 82.5 H Lymph % (Auto) 7.0 L [place] % (Auto) 10.1 H Eos % (Auto) 0.4 L Baso % (Auto) 0.0 Lymph # (Auto) 0.6 L [place] # (Auto) 0.8 H Eos # (Auto) 0.0 Baso # (Auto) 0.00 Absolute Neuts (auto) 6.61 H pCO2 pO2 HCO3 ABG pH ABG Total CO2 ABG O2 Saturation ABG O2 Content ABG Base Excess ABG Hemoglobin ABG Carboxyhemoglobin POC ABG HHb (Measured) ABG Methemoglobin ABG O2 Capacity ABG Potassium VBG pH VBG pCO2 VBG HCO3 VBG Total CO2 VBG O2 Sat (Calc) VBG Base Excess VBG Potassium Hgb O2 Saturation Sodium 142 142 Chloride 99 98 Glucose Lactate FiO2 Crit Value Called To Crit Value Called By Blood Gas Notified Time Potassium 4.9 4.8 Carbon Dioxide 27 29 Anion Gap 21 H 20 BUN 124 H* 129 H* Creatinine 9.3 H* 9.2 H* Est GFR ( Amer) 7 7 Est GFR (Non-Af Amer) 6 6 Random Glucose 222 H 148 H Calcium 8.3 L 8.5 Phosphorus 2.7 Magnesium 2.3 H Total Bilirubin 1.0 AST 160 H D ALT 55 Alkaline Phosphatase 71 Total Creatine Kinase CK-MB (CK-2) CK-MB (CK-2) % Troponin I Total Protein 6.3 Albumin 3.1 Globulin 3.2 Albumin/Globulin Ratio 1.0 L Arterial Blood Potassium Venous Blood Potassium Urine Color Urine Appearance Urine pH Ur Specific [place] Urine Protein Urine Glucose (UA) Urine Ketones Urine Blood Urine Nitrate Urine Bilirubin Urine Urobilinogen Ur Leukocyte Esterase Urine RBC Urine WBC Ur Epithelial Cells Urine Bacteria Hyaline Casts Coarse Granular Casts Urine Eosinophils Ur Random Creatinine Ur Random Sodium Critical Care Progress Note - Nutrition Nutrition: Nutrition Category Date Time Status NPO Diet [DIET] Diets 07/02/18 Lunch Ordered Addendum Addendum: 07/02/18 16:46 MICU Attending addendum Patient seen and examined with housestaff on 07/01 Agree with resident note above with the follow add/exceptions 52 year old male with past medical history of crohn's disease s/p colostomy, Susac syndrome, psoriasis, cerebral vasculitis with bilateral hearing loss who after being found on the floor for about 1-2 days now in acute renal failure. CT abd/pelvis shows incarcerated ventral hernia with partial SBO adjacent to colostomy. Was not taken to OR by surg surg and GI discussing whether this may be more of a crohn's flare and if he can be conservatively managed without having surgery given his very high risk. He is clinically improving in term of having less abd pain, hemodyn stable, afebrile Fluid resuscitation. Monitor I/O. Follow cultures and cont broad empiric abx as well vanc/zosyn f/u nephro recs for possbile HD bicarb drip as per nephro CAUTION given alkalemia now repeat chem and VBG with lac FULL CODE Rest of care as per above resident note Curt Tyson MD MICU Attending CC Time 33 mins spent caring for patient, rounding with international accountant, discussing case with surg consultants and GI learning consultant
[2018-07-02] MEDS ORDERED: Vancomycin 1gm in NS 250ml 1 GM/250 ML BAG IVPB SCH (10:00)
[2018-07-02 10:43] LABS: CK MB% 0.9 % (2.5-3.0)
[2018-07-02 13:02] LABS: CALCIUM 8.5 mg/dL (8.4-10.5)
--- NOTE | 2018-07-02 13:34 | CARD ---
APPROVED REPORT Date of service: 07/01/2018 EKG Measurement Heart [id number] <Conclusion> Sinus tachycardia Otherwise normal ECG
[2018-07-02] MEDS ORDERED: Vancomycin 500mg in NS 500 MG/100 ML BAG IVPB SCH ×2 (14:19→14:30)
--- NOTE | 2018-07-02 14:24 | CP.PCM.PN ---
<Daniella Jacques - Last Filed: 07/02/18 14:30> Subjective - Date & Time of Evaluation Date of Evaluation: 07/02/18 Time of Evaluation: 10:00 - Subjective Subjective: PGY5 GI Follow-up Pt seen and examined bedside Altered +abd pain NPO ROS: 12 point ROS conducted neg other than above Objective - Vital Signs/Intake and Output Vital Signs (last 24 hours): Temp Pulse Resp BP Pulse Ox 99.7 F H 105 H 23 140/67 95 07/02/18 13:20 07/02/18 13:20 07/02/18 13:20 07/02/18 13:00 07/02/18 13:20 Intake and Output: 07/02/18 07/02/18 06:59 18:59 Intake Total 1625 Output Total 480 Balance 1145 - Medications Medications: Current Medications Famotidine (Pepcid) 20 mg IVP DAILY [facility] Last Admin: 07/02/18 09:26 Dose: 20 mg Piperacillin Sod/Tazobactam Sod (Zosyn 3.375 In Ns 100ml) 100 mls @ 25 mls/hr IVPB Q12 [facility]; Protocol Stop: 07/11/18 10:01 Last Admin: 07/02/18 09:26 Dose: 25 mls/hr Sodium Bicarbonate 100 meq/ (Dextrose) 1,100 mls @ 150 mls/hr IV .Q7H20M [facility] Last Admin: 07/02/18 07:50 Dose: 150 mls/hr Vancomycin HCl (Vancomycin 500mg In Ns) 500 mg in 100 mls @ 200 mls/hr IVPB Q12 [facility]; Protocol Morphine Sulfate (Morphine) 2 mg IVP Q4H PRN PRN Reason: Pain, severe (8-10) Last Admin: 07/02/18 04:33 Dose: 2 mg - Labs Labs: 07/02/18 05:30 07/02/18 12:24 PT 18.2 SECONDS (9.4-12.5) H 07/01/18 08:50 INR 1.61 07/01/18 08:50 APTT 52.2 Seconds (26.9-38.3) H 07/01/18 08:50 - Constitutional Appears: In Acute Distress, Agitated - Head Exam Head Exam: ATRAUMATIC, NORMOCEPHALIC - Eye Exam Eye Exam: Normal appearance - ENT Exam ENT Exam: Mucous Membranes Moist, Normal Exam - Neck Exam Neck Exam: Normal Inspection - Respiratory Exam Respiratory Exam: Clear to Ausculation Bilateral, NORMAL BREATHING PATTERN. absent: Rales, Rhonchi, Wheezes, Respiratory Distress - Cardiovascular Exam Cardiovascular Exam: REGULAR RHYTHM, +S1, +S2 - GI/Abdominal Exam GI & Abdominal Exam: Distended, Tenderness (diffuse and over hernia). absent: Firm, Guarding, Organomegaly, Pulsatile Mass, Rebound Additional comments: herniated sac above umbilicus, erythema in center, with focal eccymosis - Neurological Exam Neurological Exam: Alert - Psychiatric Exam Additional comments: cannot assess - Skin Skin Exam: Dry, Intact, Normal Color, Warm Assessment and Plan - Assessment and Plan (Free Text) Assessment: 52 year old male with past medical history of crohn's disease s/p colostomy, Susac syndrome, psoriasis, cerebral vasculitis with bilateral hearing loss, depression who presents in acute renal failure and sepsis 2/2 bowel obstruction. Incarcerated Abd Hernia, possible strangulation and necrosis sepsis hx of crohn's, s/p colostomy Plan: -unlikely a crohn's flare, based on review of CT abd. Pt has had proper control of crohns for 15+ years without the use of biologics or immunosuppressive therapy. -d/w resident physician and informed her of the concern for strangulated bowel and possible necrosis in hernia sac -would not advise any immunosupression at this time for pt -would defer to surgery on management of hernia and possible surgery -continue antibiotics -continue IV fluids -keep NPO -renal care as per nephrology -d/w case with ICU attending D/W Dr. Okeefe <Eric Okeefe V - Last Filed: 07/03/18 06:54> Objective - Vital Signs/Intake and Output Vital Signs (last 24 hours): Temp Pulse Resp BP Pulse Ox 100.4 F H 99 H 25 H 120/41 L 96 07/02/18 18:30 07/02/18 19:00 07/02/18 18:30 07/02/18 18:00 07/02/18 18:30 Intake and Output: 07/02/18 07/03/18 18:59 06:59 Intake Total 1950 Output Total 850 Balance 1100 - Medications Medications: Current Medications Famotidine (Pepcid) 20 mg IVP DAILY SANTINO Last Admin: 07/02/18 09:26 Dose: 20 mg Piperacillin Sod/Tazobactam Sod (Zosyn 3.375 In Ns 100ml) 100 mls @ 25 mls/hr IVPB Q12 [facility]; Protocol Stop: 07/11/18 10:01 Last Admin: 07/02/18 21:23 Dose: 25 mls/hr Sodium Bicarbonate 100 meq/ (Dextrose) 1,100 mls @ 150 mls/hr IV .Q7H20M [facility] Last Admin: 07/02/18 23:20 Dose: 150 mls/hr Metronidazole (Flagyl) 500 mg in 100 mls @ 100 mls/hr IVPB Q8 [facility]; Protocol Last Admin: 07/02/18 20:05 Dose: 100 mls/hr Methylprednisolone (Solu-Medrol) 60 mg IVP Q12 [facility] Stop: 07/04/18 16:22 Last Admin: 07/02/18 20:04 Dose: 60 mg Morphine Sulfate (Morphine) 2 mg IVP Q4H PRN PRN Reason: Pain, severe (8-10) Last Admin: 07/02/18 04:33 Dose: 2 mg - Labs Labs: 07/02/18 05:30 07/02/18 17:30 PT 18.2 SECONDS (9.4-12.5) H 07/01/18 08:50 INR 1.61 07/01/18 08:50 APTT 52.2 Seconds (26.9-38.3) H 07/01/18 08:50 Attending/Attestation - Attestation I have personally seen and examined this patient.: Yes I have fully participated in the care of the patient.: Yes I have reviewed all pertinent clinical information, including history, physical exam and plan: Yes Notes (Text): This patient was seen and evaluated here earlier along with the GI fellow. Is an addendum to the GI progress note dictated by the fellow. I did discuss with the surgeon. GI perspective clinically does not appear as Crohn's flareup. This patient has been followed by me more than 15 years. Patient was not treated with biological therapy or steroids during this period of time last colonoscopy and endoscopy did not show any significant active colitis. Clinically is most suggestive of incarcerated hernia. No indication at present to start the patient on immunosuppressive therapy, steroid or biological therapy . The patient may need surgery but the timing of the surgery is left to the surgeon . Joseph Voss 07/02/18 23:39 07/03/18 06:50
[2018-07-02] MEDS ORDERED: Vancomycin 1gm in NS 250ml 1 GM/250 ML BAG IVPB STA (14:27)
[2018-07-02 17:54] LABS: CALCIUM 8.4 mg/dL (8.4-10.5)
[2018-07-02] MEDS: metroNIDAZOLE IV 500 mg/100 ml 500 MG/100 ML BAG IVPB SCH (20:05)
--- NOTE | 2018-07-02 22:14 | CON ---
DATE: 07/02/2018 Room 128, Bed 2 CHIEF COMPLAINT: Nausea and vomiting x2 days' duration. 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 REVIEW OF SYSTEMS: Reveals the patient is in poor condition. He has had low-grade fevers, nausea, vomiting, abdominal pain. No headaches, no blurred vision. No dysuria or frequency. Twelve-point review of systems is performed. 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 PAST SURGICAL HISTORY: Significant for right chest Port-A-Cath which was removed and the patient also with a colostomy. ALLERGIES: HEMATOPOIETIC SUBSTANCE AND ALSO ESTONIAN SPRING SOAP. MEDICATIONS AT HOME: Reviewed, include Seroquel, Lyrica, potassium, Paxil, omeprazole, Elavil. PHYSICAL EXAMINATION: VITAL SIGNS: The patient is in bed with a temperature of 99.7, heart rate of 113, respiratory rate of 30, blood pressure is 150/70. HEENT: Unremarkable. NECK: Supple. LUNGS: Have decreased breath sounds. HEART: Normal S1, S2. ABDOMEN: There is erythema. There also appears to be tenderness, but no rebound or guarding. LABORATORY EXAMINATION: Reveals the HIV test in 2017 was negative. The patient's urinalysis is negative. The patient's creatinine is up to 9.4; last admission 06/22/2018, it was 0.8. White count of 16,000 with 83% polys. Gases are noted. LFTs are mildly elevated. Chest x-ray is negative. Renal ultrasound is negative. CAT scan of the abdomen and pelvis is read by Dr. Moran and consistent with incarcerated hernia with just partial small-bowel obstruction. Ultrasound is negative, but the CAT scan is positive. Dr. Gutierrez's consultation is reviewed. ASSESSMENT AND PLAN: This is a 52-year-old male who was admitted with severe sepsis secondary to an incarcerated hernia with small bowel-obstruction and abdominal wall cellulitis with metabolic acidosis and acute kidney injury where the creatinine has changed from 0.8 to 9.4. The patient was given a dose of vancomycin, adjusted renally, and we will start the patient on Zosyn, awaiting for Surgical input and pending pancultures, blood and urine, screen. Overall prognosis is quite poor. We will follow with you. Ned Clay MD
--- NOTE | 2018-07-03 00:06 | CON ---
CARDIOLOGY CONSULTATION (Dr. Herndon) DATE: 07/02/2018 HISTORY OF PRESENT ILLNESS: The patient is a 52-year-old male who was found on the floor after 2 days of no contact. The patient's past medical history is from the family who only knows that he has had Crohn disease and which he has had abdominal surgery with a colostomy. Apparently, there is no knowledge of previous cardiac history. No other cardiac symptomatology. No other past medical history is available. The family is unaware of any previous cardiac history. In reviewing his past medical history, the patient has had interventions of his peripheral vascular system in April 2017. At that time, central lines were placed. An echocardiogram performed in February 2017 revealed good LV function with no vegetations noted. Currently, the patient is awake and hungry. Denies chest pain. PHYSICAL EXAMINATION: VITAL SIGNS: The blood pressure is 140/67, heart rate is in the 90s, normal sinus rhythm. NECK: Negative JVD. LUNGS: Without rales. HEART: S1, S2. EXTREMITIES: Without edema. ABDOMEN: There is a colostomy bag noted. LABORATORIES: Hemoglobin is 11.7. Chemistries, creatinine is up to 9.2. The troponin is 0.09. IMPRESSION: 1. Syncope. 2. Rhabdomyolysis. 3. Renal failure. 4. History of Crohn disease. 5. Borderline elevated troponin is likely from his renal failure. 6. Diabetes mellitus. Given these findings, I agree with continued IV hydration. We will obtain an echocardiogram to evaluate his LV function. In the morning, we will return the care back to Dr. Herndon. Jose Lee MD
[2018-07-03 00:21] LABS: CALCIUM 8.2 mg/dL (8.4-10.5)
[2018-07-03] MEDS: metroNIDAZOLE IV 500 mg/100 ml 500 MG/100 ML BAG IVPB SCH ×2 (02:57→08:16)
[2018-07-03] MEDS: Sodium Bicarbonate 8.4% 100 MEQ in Dextrose 5% In Water 1,000 ML IV SCH ×3 (05:00→22:34)
[2018-07-03 06:33] LABS: BASO # 0.01 K/mm3 (0.0-2.0); BASO % 0.2 % (0.0-3.0); HEMOGLOBIN 10.7 g/dL (14.0-18.0); LYMPH # 0.3 (1.2-3.4); LYMPH % 6.8 % (22.0-35.0); MEAN CELL VOLUME 91.1 fl (80.0-105.0); MEAN CORPUSCULAR HEMOGLOBIN 30.6 pg (25.0-35.0); MEAN CORPUSCULAR HGB CONC 33.5 g/dl (31.0-37.0); MEAN PLATELET VOLUME 10.2 fl (7.0-11.0); MONO # 0.2 (0.1-0.6); MONO % 4.9 % (1.0-6.0); RBC 3.5 10^6/uL (3.5-6.1); RED CELL DISTRIBUTION WIDTH 14.8 % (11.5-14.5); WHITE BLOOD COUNT 4.7 10^3/uL (4.5-11.0)
[2018-07-03 06:38] LABS: VENOUS BLOOD GAS BASE EXCESS 8.6 mmol/L (0.0-2.0); VENOUS BLOOD GAS PO2 43 mm/Hg (30-55); VENOUS BLOOD PH 7.47 (7.32-7.43)
[2018-07-03 06:58] LABS: ALBUMIN 3.2 g/dL (3.0-4.8); CALCIUM 8.3 mg/dL (8.4-10.5)
--- NOTE | 2018-07-03 08:25 | CP.CCUPN ---
<Lennox Pineda - Last Filed: 07/03/18 10:52> CCU Subjective - Physician Review Subjective (Free Text): Lennox Pineda PGY-1 Critical Care Progress Note Patient seen and evaluated at bedside. Febrile overnight with Tmax 100.4. Currently resting comfortably in bed in no acute distress without nasal cannula. Patient frustrated that he can not eat and is stuck in the hospital. Patient reports abdominal pain is currently controlled. Denies chest pain, palpitations, shortness of breath. CCU Objective - Vital Signs / Intake & Output Vital Signs (Last 4 hours): Vital Signs Temp Pulse Resp BP Pulse Ox 07/03/18 08:10 98.4 F 76 22 92 L 07/03/18 08:07 98.4 F 76 93 L 07/03/18 08:00 98.4 F 79 11 L 147/82 90 L 07/03/18 07:50 98.2 F 76 21 91 L 07/03/18 07:45 98.2 F 76 93 L 07/03/18 07:41 98.2 F 76 92 L 07/03/18 07:40 98.2 F 75 21 85 L 07/03/18 07:30 98.2 F 73 13 89 L 07/03/18 07:20 98.2 F 78 22 92 L 07/03/18 07:10 98.2 F 77 26 H 93 L 07/03/18 07:00 98.2 F 76 16 149/78 93 L 07/03/18 06:58 98.2 F 75 93 L 07/03/18 06:51 98.1 F 77 07/03/18 06:50 98.2 F 80 28 H 100 07/03/18 06:41 98.2 F 84 97 07/03/18 06:40 98.2 F 78 98 07/03/18 06:38 98.2 F 77 98 07/03/18 06:37 98.2 F 79 98 07/03/18 06:30 98.2 F 80 17 98 07/03/18 06:28 98.2 F 80 90 L 07/03/18 06:20 98.2 F 80 95 07/03/18 06:17 98.2 F 80 93 L 07/03/18 06:10 98.2 F 79 22 94 L 05/20/19 06:00 98.2 F 78 16 137/71 92 L 07/03/18 05:50 98.2 F 82 18 91 L 07/03/18 05:40 98.2 F 77 19 93 L 07/03/18 05:30 98.4 F 75 16 93 L 07/03/18 05:21 98.4 F 63 94 L 07/03/18 05:20 98.2 F 75 21 94 L 07/03/18 05:10 98.4 F 75 18 92 L 07/03/18 05:00 98.4 F 79 18 128/69 92 L 07/03/18 04:52 98.4 F 80 92 L 07/03/18 04:50 98.4 F 79 17 90 L 07/03/18 04:40 98.4 F 83 12 92 L 07/03/18 04:31 98.4 F 88 92 L 07/03/18 04:30 98.4 F 87 16 92 L Intake and Output (Last 8hrs): Intake & Output 07/02/18 07/03/18 07/03/18 22:59 06:59 14:59 Intake Total 1949 1999 Output Total 850 1400 Balance 1100 600 Intake: IV 1949 1999 ANTIBIOTIC 250 200 Left Upper arm 1700 1800 Oral 0 0 Tube Feeding 0 0 TPN/PPN 0 0 Blood Product 0 0 Lipid 0 0 Albumin 0 0 Other 0 Output: Urine 850 1400 Urethral (Estrada) 850 1400 Stool 0 0 Urine/Stool Mix 0 0 Emesis 0 0 Oral Regurgitation 0 0 Other 0 0 Other: # Voids Urethral (Estrada) 0 0 # Bowel Movements 0 0 - Physical Exam Head: Positive for: Atraumatic, Normocephalic Pupils: Positive for: PERRL Extroacular Muscles: Positive for: EOMI Conjunctiva: Positive for: Normal Mouth: Positive for: Dry Neck: Positive for: Normal Range of Motion Respiratory/Chest: Positive for: Clear to Auscultation, Decreased Breath Sounds. Negative for: Respiratory Distress, Accessory Muscle Use, Wheezes, Rales, Rhonchi Cardiovascular: Positive for: Regular Rate and Rhythm, Normal S1, S2. Negative for: Murmurs Abdomen: Positive for: Other (Colostomy to left lower quadrant, TTP L sided non reducible ventral hernia with erythema overlying the site. Area of erythmea reduced in size. ). Negative for: Tenderness, Distention, Normal Bowel Sounds (hypoactive), Peritoneal Signs, Rebound, Guarding, [place]'s [place] Tender Back: Positive for: Normal Inspection Upper Extremity: Positive for: Normal Inspection. Negative for: Cyanosis, Edema Lower Extremity: Positive for: Normal Inspection. Negative for: Edema Neurological: Positive for: GCS=15, Speech Normal, Other (Hard of hearing) Skin: Positive for: Warm, Dry, Normal Color. Negative for: Rashes Psychiatric: Positive for: Alert, Normal Insight, Normal Concentration, Depressed Mood. Negative for: Oriented x 3 (Oriented x 2 ) - Medications Active Medications: Active Medications Generic Name Dose Route Start Last Admin Trade Name Freq PRN Reason Stop Dose Admin Famotidine 20 mg 07/01/18 13:15 07/02/18 09:26 Pepcid IVP 20 mg DAILY SANTINO Administration Piperacillin Sod/Tazobactam Sod 100 mls @ 25 mls/hr 07/02/18 10:00 07/02/18 21:23 Zosyn 3.375 In Ns 100ml IVPB 07/11/18 10:01 25 mls/hr Q12 SANTINO Administration Protocol Sodium Bicarbonate 100 meq/ 1,100 mls @ 150 mls/hr 07/01/18 23:45 07/02/18 23:20 Dextrose IV 150 mls/hr .Q7H20M SANTINO Administration Metronidazole 500 mg in 100 mls @ 100 mls/hr 07/02/18 16:30 07/03/18 08:16 Flagyl IVPB 100 mls/hr Q8 SANTINO Administration Protocol Methylprednisolone 60 mg 07/02/18 16:21 07/03/18 02:57 Solu-Medrol IVP 07/04/18 16:22 60 mg Q12 SANTINO Administration Morphine Sulfate 2 mg 07/01/18 15:48 07/02/18 04:33 Morphine IVP 2 mg Q4H PRN Administration Pain, severe (8-10) - Patient Studies Lab Studies: Microbiology Studies 07/01/18 13:51 MRSA Culture (Admit) - Final Naris MRSA NOT DETECTED 07/01/18 08:50 S.aureus & Coag-Neg Staph PNA FISH - Final Blood Blood Culture - Preliminary Gram Positive Cocci Gram Stain - Final 07/01/18 09:10 Blood Culture - Preliminary Blood NO GROWTH AFTER 24 HOURS Lab Studies 05/07/03/18 07/03/18 Range/Units 06:05 06:05 06:05 WBC 4.7 D (4.5-11.0) 10^3/uL RBC 3.50 (3.5-6.1) 10^6/uL Hgb 10.7 L (14.0-18.0) g/dL Hct 31.9 L (42.0-52.0) % MCV 91.1 (80.0-105.0) fl MCH 30.6 (25.0-35.0) pg MCHC 33.5 (31.0-37.0) g/dl RDW 14.8 H (11.5-14.5) % Plt Count 125 (120.0-450.0) 10^3/uL MPV 10.2 (7.0-11.0) fl Neut % (Auto) 88.1 H (50.0-68.0) % Lymph % (Auto) 6.8 L (22.0-35.0) % Bowie % (Auto) 4.9 (1.0-6.0) % Eos % (Auto) 0.0 L (1.5-5.0) % Baso % (Auto) 0.2 (0.0-3.0) % Lymph # (Auto) 0.3 L (1.2-3.4) Bowie # (Auto) 0.2 (0.1-0.6) Eos # (Auto) 0.0 (0.0-0.7) Baso # (Auto) 0.01 (0.0-2.0) K/mm3 Absolute Neuts (auto) 4.18 (1.4-6.5) pO2 43 (30-55) mm/Hg VBG pH 7.47 H (7.32-7.43) VBG pCO2 46.0 (40-60) VBG HCO3 33.5 H (21-28) mmol/l VBG Total CO2 34.9 H (22-28) mmol.L VBG O2 Sat (Calc) 81.8 H (40-65) % VBG Base Excess 8.6 H (0.0-2.0) mmol/L VBG Potassium 4.7 (3.6-5.2) mmol/L Sodium 139.0 142 (132-148) mmol/L Chloride 99.0 96 L (98-107) mmol/L Glucose 177 H (75-110) mg/dl Lactate 1.7 (0.7-2.1) mmol/L FiO2 21.0 % Crit Value Called To Crit Value Called By Blood Gas Notified Time Potassium 4.7 Carbon Dioxide 31 Anion Gap 20 BUN 127 H* Creatinine 9.5 H* (0.8-1.5) mg/dl Est GFR ( Amer) 7 Est GFR (Non-Af Amer) 6 Random Glucose 180 H Calcium 8.3 L Phosphorus 3.8 (2.5-4.5) mg/dL Magnesium 2.2 (1.7-2.2) mg/dL Total Bilirubin 1.1 (0.2-1.3) mg/dL AST 120 H D (17-59) U/L ALT 66 H (7-56) U/L Alkaline Phosphatase 78 (38-126) U/L Total Creatine Kinase (35-230) U/L CK-MB (CK-2) (0.0-3.6) ng/mL CK-MB (CK-2) % (2.5-3.0) % Total Protein 6.6 (5.8-8.3) g/dL Albumin 3.2 (3.0-4.8) g/dL Globulin 3.3 gm/dL Albumin/Globulin Ratio 1.0 L (1.1-1.8) Venous Blood Potassium 4.7 (3.6-5.2) mmol/L Urine Eosinophils 07/02/18 07/02/18 07/02/18 Range/Units 23:15 17:30 12:24 WBC (4.5-11.0) 10^3/uL RBC (3.5-6.1) 10^6/uL Hgb (14.0-18.0) g/dL Hct (42.0-52.0) % MCV (80.0-105.0) fl MCH (25.0-35.0) pg MCHC (31.0-37.0) g/dl RDW (11.5-14.5) % Plt Count (120.0-450.0) 10^3/uL MPV (7.0-11.0) fl Neut % (Auto) (50.0-68.0) % Lymph % (Auto) (22.0-35.0) % Bowie % (Auto) (1.0-6.0) % Eos % (Auto) (1.5-5.0) % Baso % (Auto) (0.0-3.0) % Lymph # (Auto) (1.2-3.4) Bowie # (Auto) (0.1-0.6) Eos # (Auto) (0.0-0.7) Baso # (Auto) (0.0-2.0) K/mm3 Absolute Neuts (auto) (1.4-6.5) pO2 (30-55) mm/Hg VBG pH (7.32-7.43) VBG pCO2 (40-60) VBG HCO3 (21-28) mmol/l VBG Total CO2 (22-28) mmol.L VBG O2 Sat (Calc) (40-65) % VBG Base Excess (0.0-2.0) mmol/L VBG Potassium (3.6-5.2) mmol/L Sodium 141 142 142 (132-148) mmol/L Chloride 96 L 98 98 (98-107) mmol/L Glucose (75-110) mg/dl Lactate (0.7-2.1) mmol/L FiO2 % Crit Value Called To Crit Value Called By Blood Gas Notified Time Potassium 5.1 H 4.7 4.8 Carbon Dioxide 30 31 29 Anion Gap 20 18 20 BUN 126 H* 126 H* 129 H* Creatinine 9.6 H* 9.4 H* 9.2 H* (0.8-1.5) mg/dl Est GFR ( Amer) 7 7 7 Est GFR (Non-Af Amer) 6 6 6 Random Glucose 151 H 157 H 148 H Calcium 8.2 L 8.4 8.5 Phosphorus (2.5-4.5) mg/dL Magnesium (1.7-2.2) mg/dL Total Bilirubin (0.2-1.3) mg/dL AST (17-59) U/L ALT (7-56) U/L Alkaline Phosphatase (38-126) U/L Total Creatine Kinase (35-230) U/L CK-MB (CK-2) (0.0-3.6) ng/mL CK-MB (CK-2) % (2.5-3.0) % Total Protein (5.8-8.3) g/dL Albumin (3.0-4.8) g/dL Globulin gm/dL Albumin/Globulin Ratio (1.1-1.8) Venous Blood Potassium (3.6-5.2) mmol/L Urine Eosinophils 07/02/18 07/02/18 07/01/18 Range/Units 05:00 02:53 09:10 WBC (4.5-11.0) 10^3/uL RBC (3.5-6.1) 10^6/uL Hgb (14.0-18.0) g/dL Hct (42.0-52.0) % MCV (80.0-105.0) fl MCH (25.0-35.0) pg MCHC (31.0-37.0) g/dl RDW (11.5-14.5) % Plt Count (120.0-450.0) 10^3/uL MPV (7.0-11.0) fl Neut % (Auto) (50.0-68.0) % Lymph % (Auto) (22.0-35.0) % Bowie % (Auto) (1.0-6.0) % Eos % (Auto) (1.5-5.0) % Baso % (Auto) (0.0-3.0) % Lymph # (Auto) (1.2-3.4) Bowie # (Auto) (0.1-0.6) Eos # (Auto) (0.0-0.7) Baso # (Auto) (0.0-2.0) K/mm3 Absolute Neuts (auto) (1.4-6.5) pO2 53 (30-55) mm/Hg VBG pH 7.31 L (7.32-7.43) VBG pCO2 36.0 L (40-60) VBG HCO3 18.1 L (21-28) mmol/l VBG Total CO2 19.2 L (22-28) mmol.L VBG O2 Sat (Calc) 86.5 H (40-65) % VBG Base Excess -7.4 L (0.0-2.0) mmol/L VBG Potassium 6.9 H* (3.6-5.2) mmol/L Sodium Cancelled 132.0 (132-148) mmol/L Chloride Cancelled 96.0 L (98-107) mmol/L Glucose 123 H (75-110) mg/dl Lactate 3.6 H (0.7-2.1) mmol/L FiO2 21.0 % Crit Value Called To Steffanie ortiz Crit Value Called By Adri Blood Gas Notified Time 922 Potassium Cancelled Carbon Dioxide Cancelled Anion Gap Cancelled BUN Cancelled Creatinine (0.8-1.5) mg/dl Est GFR ( Amer) Cancelled Est GFR (Non-Af Amer) Cancelled Random Glucose Cancelled Calcium Cancelled Phosphorus (2.5-4.5) mg/dL Magnesium (1.7-2.2) mg/dL Total Bilirubin (0.2-1.3) mg/dL AST (17-59) U/L ALT (7-56) U/L Alkaline Phosphatase (38-126) U/L Total Creatine Kinase 4980 H (35-230) U/L CK-MB (CK-2) 44.0 H (0.0-3.6) ng/mL CK-MB (CK-2) % 0.9 L (2.5-3.0) % Total Protein (5.8-8.3) g/dL Albumin (3.0-4.8) g/dL Globulin gm/dL Albumin/Globulin Ratio (1.1-1.8) Venous Blood Potassium 6.9 H* (3.6-5.2) mmol/L Urine Eosinophils Negative Laboratory Results - last 24 hr 07/01/18 07/02/18 07/02/18 09:10 02:53 05:00 WBC RBC Hgb Hct MCV MCH MCHC RDW Plt Count MPV Neut % (Auto) Lymph % (Auto) Bowie % (Auto) Eos % (Auto) Baso % (Auto) Lymph # (Auto) Bowie # (Auto) Eos # (Auto) Baso # (Auto) Absolute Neuts (auto) pO2 53 VBG pH 7.31 L VBG pCO2 36.0 L VBG HCO3 18.1 L VBG Total CO2 19.2 L VBG O2 Sat (Calc) 86.5 H VBG Base Excess -7.4 L VBG Potassium 6.9 H* Sodium 132.0 Cancelled Chloride 96.0 L Cancelled Glucose 123 H Lactate 3.6 H FiO2 21.0 Crit Value Called To Steffanie ortiz Crit Value Called By [facility] Blood Gas Notified Time 922 Potassium Cancelled Carbon Dioxide Cancelled Anion Gap Cancelled BUN Cancelled Creatinine Est GFR ( Amer) Cancelled Est GFR (Non-Af Amer) Cancelled Random Glucose Cancelled Calcium Cancelled Phosphorus Magnesium Total Bilirubin AST ALT Alkaline Phosphatase Total Creatine Kinase 4980 H CK-MB (CK-2) 44.0 H CK-MB (CK-2) % 0.9 L Total Protein Albumin Globulin Albumin/Globulin Ratio Venous Blood Potassium 6.9 H* Urine Eosinophils Negative 07/02/18 07/02/18 07/02/18 12:24 17:30 23:15 WBC RBC Hgb Hct MCV MCH MCHC RDW Plt Count MPV Neut % (Auto) Lymph % (Auto) Bowie % (Auto) Eos % (Auto) Baso % (Auto) Lymph # (Auto) Bowie # (Auto) Eos # (Auto) Baso # (Auto) Absolute Neuts (auto) pO2 VBG pH VBG pCO2 VBG HCO3 VBG Total CO2 VBG O2 Sat (Calc) VBG Base Excess VBG Potassium Sodium 142 142 141 Chloride 98 98 96 L Glucose Lactate FiO2 Crit Value Called To Crit Value Called By Blood Gas Notified Time Potassium 4.8 4.7 5.1 H Carbon Dioxide 29 31 30 Anion Gap 20 18 20 BUN 129 H* 126 H* 126 H* Creatinine 9.2 H* 9.4 H* 9.6 H* Est GFR ( Amer) 7 7 7 Est GFR (Non-Af Amer) 6 6 6 Random Glucose 148 H 157 H 151 H Calcium 8.5 8.4 8.2 L Phosphorus Magnesium Total Bilirubin AST ALT Alkaline Phosphatase Total Creatine Kinase CK-MB (CK-2) CK-MB (CK-2) % Total Protein Albumin Globulin Albumin/Globulin Ratio Venous Blood Potassium Urine Eosinophils 07/03/18 07/03/18 07/03/18 06:05 06:05 06:05 WBC 4.7 D RBC 3.50 Hgb 10.7 L Hct 31.9 L MCV 91.1 MCH 30.6 MCHC 33.5 RDW 14.8 H Plt Count 125 MPV 10.2 Neut % (Auto) 88.1 H Lymph % (Auto) 6.8 L Bowie % (Auto) 4.9 Eos % (Auto) 0.0 L Baso % (Auto) 0.2 Lymph # (Auto) 0.3 L Bowie # (Auto) 0.2 Eos # (Auto) 0.0 Baso # (Auto) 0.01 Absolute Neuts (auto) 4.18 pO2 43 VBG pH 7.47 H VBG pCO2 46.0 VBG HCO3 33.5 H VBG Total CO2 34.9 H VBG O2 Sat (Calc) 81.8 H VBG Base Excess 8.6 H VBG Potassium 4.7 Sodium 142 139.0 Chloride 96 L 99.0 Glucose 177 H Lactate 1.7 FiO2 21.0 Crit Value Called To Crit Value Called By Blood Gas Notified Time Potassium 4.7 Carbon Dioxide 31 Anion Gap 20 BUN 127 H* Creatinine 9.5 H* Est GFR ( Amer) 7 Est GFR (Non-Af Amer) 6 Random Glucose 180 H Calcium 8.3 L Phosphorus 3.8 Magnesium 2.2 Total Bilirubin 1.1 AST 120 H D ALT 66 H Alkaline Phosphatase 78 Total Creatine Kinase CK-MB (CK-2) CK-MB (CK-2) % Total Protein 6.6 Albumin 3.2 Globulin 3.3 Albumin/Globulin Ratio 1.0 L Venous Blood Potassium 4.7 Urine Eosinophils Fingerstick Blood Sugar Results: 125 Review of Systems - Review of Systems Review of Systems: 12 point ROS completed and negative except as described in HPI. Critical Care Progress Note - Nutrition Nutrition: Nutrition Category Date Time Status Liquid Diet [DIET] Diets 07/03/18 Lunch Ordered NPO Diet [DIET] Diets 07/02/18 Lunch Ordered Assessment/Plan - Assessment and Plan (Free Text) Assessment: 52 year old male with past medical history of crohn's disease s/p colostomy, Susac syndrome, psoriasis, cerebral vasculitis with bilateral hearing loss, depression who presents in acute renal failure and sepsis 2/2 bowel obstruction. Neuro: -AAOx3, no FND, moving extremities past midline. -Monitor neuro status. -Reorient patient as necessary. Cardio: -RRR, normotensive, no signs of HD compromise -F/U echo -Maintain MAP>65. -Monitor for S/S, HD compromise. Pulm: -No signs of respiratory distress. CTA B/L -Maintain O2 saturation >90%. -O2 NC PRN -aspiration precautions, fall precautions -CXR 07/01/18 neg -Elevate bed to 30 degrees GI: 07/01/18 CT abd/pel: incarcerated ventral hernia with partial SBO adjacent to colostomy. -NPO currently, CLD to start at lunch per surgery -High dose Steroids and Flagyl per surgery, possible Crohn's flare -Protonix -Pain control with Morphine -Dr. Hope on consult -Gen Surg on consult- Dr. Voss- no acute plan for OR at this time, possible Crohn's flare /Nephro: -Acute renal failure, Cr 9.5, BMP q6h -Improving hyperkalemia, remains normal this AM -Nephro on consult- Dr. Rice, covered by Dr. Gutierrez -Continue bicarb drip per nephro -Estrada in place, 2.2 L out yesterday -will continue on maintenance IVF D5 bicarb@150 cc/hr per nephro -F/u myoglobin and urine studies -repeat CK decreased -Continue monitoring. -Daily weights, Strict Is and Os -Replete electrolytes as needed. -Maintain euvolemia. Endocrinology: -Random glucose: 180 -Maintain euglycemia. Heme/Onc: -H/H likely decrease 2/2 IVF, no melena, hematochezia or hematemesis noted -No signs of HD compromise. -Dr. 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 Psych: -frustrated and agitated about constant hospitalizations -no SI/HI endorsed -Psych consult placed, f/u recs DVT prophylaxis: SCDs GI ppx: Pepcid Patient seen, case reviewed and plan approved by Dr. Regan Tyson. Lennox Pineda, PGY-1 <Curt Tyson - Last Filed: 07/03/18 15:34> CCU Objective - Vital Signs / Intake & Output Vital Signs (Last 4 hours): Vital Signs Temp Pulse Resp BP Pulse Ox 07/03/18 14:40 98.6 F 78 15 93 L 07/03/18 14:39 98.4 F 77 92 L 07/03/18 14:34 98.4 F 76 91 L 07/03/18 14:30 98.6 F 77 20 91 L 07/03/18 14:28 98.6 F 77 92 L 07/03/18 14:22 98.6 F 78 93 L 07/03/18 14:20 98.6 F 78 26 H 93 L 07/03/18 14:16 98.6 F 82 92 L 07/03/18 14:13 98.6 F 81 93 L 07/03/18 14:10 98.6 F 83 30 H 92 L 07/03/18 14:08 98.6 F 83 92 L 07/03/18 14:06 98.6 F 78 92 L 07/03/18 14:00 98.6 F 76 14 147/78 93 L 07/03/18 13:50 98.6 F 84 17 94 L 07/03/18 13:46 98.6 F 81 94 L 07/03/18 13:40 98.6 F 83 94 L 07/03/18 13:32 98.6 F 81 93 L 07/03/18 13:31 98.6 F 81 93 L 07/03/18 13:30 98.6 F 80 23 94 L 07/03/18 13:25 98.6 F 83 93 L 07/03/18 13:23 98.6 F 85 94 L 07/03/18 13:20 98.6 F 84 21 94 L 07/03/18 13:11 98.8 F 87 93 L 07/03/18 13:10 98.8 F 85 21 93 L 07/03/18 13:08 98.6 F 86 93 L 07/03/18 13:01 98.6 F 86 94 L 07/03/18 13:00 98.6 F 85 21 136/75 94 L 07/03/18 12:50 98.6 F 85 19 94 L 07/03/18 12:45 98.6 F 84 95 07/03/18 12:40 98.6 F 82 21 94 L 07/03/18 12:37 98.6 F 73 93 L 07/03/18 12:35 98.6 F 84 94 L 07/03/18 12:30 98.6 F 81 21 94 L 07/03/18 12:20 98.6 F 79 15 94 L 07/03/18 12:18 98.6 F 78 94 L 07/03/18 12:11 98.6 F 75 92 L 07/03/18 12:10 98.6 F 76 14 94 L 07/03/18 12:01 98.4 F 79 21 135/70 94 L 07/03/18 12:00 98.4 F 79 22 92 L 07/03/18 11:57 98.6 F 80 93 L 07/03/18 11:50 98.6 F 83 36 H 94 L 07/03/18 11:48 98.6 F 82 94 L 07/03/18 11:47 98.6 F 82 94 L 07/03/18 11:43 98.6 F 80 94 L 07/03/18 11:40 98.6 F 79 13 95 Intake and Output (Last 8hrs): Intake & Output 07/03/18 07/03/18 07/03/18 06:59 14:59 22:59 Intake Total 2000 Output Total 1400 Balance 600 Intake: IV 2000 ANTIBIOTIC 200 Left Upper arm 1800 Oral 0 Tube Feeding 0 TPN/PPN 0 Blood Product 0 Lipid 0 Albumin 0 Other 0 Output: Urine 1400 Urethral (Estrada) 1400 Stool 0 Urine/Stool Mix 0 Emesis 0 Oral Regurgitation 0 Other 0 Other: # Voids Urethral (Estrada) 0 # Bowel Movements 0 - Medications Active Medications: Active Medications Generic Name Dose Route Start Last Admin Trade Name Dialloq PRN Reason Stop Dose Admin Famotidine 20 mg 07/01/18 13:15 07/03/18 10:00 Pepcid IVP 20 mg DAILY SANTINO Administration Piperacillin Sod/Tazobactam Sod 100 mls @ 25 mls/hr 07/02/18 10:00 07/03/18 09:35 Zosyn 3.375 In Ns 100ml IVPB 07/11/18 10:01 25 mls/hr Q12 SANTINO Administration Protocol Sodium Bicarbonate 100 meq/ 1,100 mls @ 150 mls/hr 07/01/18 23:45 07/03/18 13:53 Dextrose IV 150 mls/hr .Q7H20M SANTINO Administration Methylprednisolone 60 mg 07/02/18 16:21 07/03/18 10:00 Solu-Medrol IVP 07/04/18 16:22 60 mg Q12 SANTINO Administration Morphine Sulfate 2 mg 07/01/18 15:48 07/03/18 14:49 Morphine IVP 2 mg Q4H PRN Administration Pain, severe (8-10) - Patient Studies Lab Studies: Microbiology Studies 07/02/18 15:00 Blood Culture - Preliminary Blood NO GROWTH AFTER 24 HOURS 07/02/18 14:30 Blood Culture - Preliminary Blood NO GROWTH AFTER 24 HOURS 07/01/18 18:40 Urine Culture - Preliminary Urine Random No growth. 07/01/18 08:50 S.aureus & Coag-Neg Staph PNA FISH - Final Blood Blood Culture - Preliminary Gram Positive Cocci Gram Stain - Final 07/01/18 09:10 Blood Culture - Preliminary Blood NO GROWTH AFTER 48 HOURS 07/01/18 13:51 MRSA Culture (Admit) - Final Naris MRSA NOT DETECTED Lab Studies 07/03/18 07/03/18 07/03/18 Range/Units 12:05 06:05 06:05 WBC (4.5-11.0) 10^3/uL RBC (3.5-6.1) 10^6/uL Hgb (14.0-18.0) g/dL Hct (42.0-52.0) % MCV (80.0-105.0) fl MCH (25.0-35.0) pg MCHC (31.0-37.0) g/dl RDW (11.5-14.5) % Plt Count (120.0-450.0) 10^3/uL MPV (7.0-11.0) fl Neut % (Auto) (50.0-68.0) % Lymph % (Auto) (22.0-35.0) % Bowie % (Auto) (1.0-6.0) % Eos % (Auto) (1.5-5.0) % Baso % (Auto) (0.0-3.0) % Lymph # (Auto) (1.2-3.4) Bowie # (Auto) (0.1-0.6) Eos # (Auto) (0.0-0.7) Baso # (Auto) (0.0-2.0) K/mm3 Absolute Neuts (auto) (1.4-6.5) pO2 43 (30-55) mm/Hg VBG pH 7.47 H (7.32-7.43) VBG pCO2 46.0 (40-60) VBG HCO3 33.5 H (21-28) mmol/l VBG Total CO2 34.9 H (22-28) mmol.L VBG O2 Sat (Calc) 81.8 H (40-65) % VBG Base Excess 8.6 H (0.0-2.0) mmol/L VBG Potassium 4.7 (3.6-5.2) mmol/L Glucose 177 H (75-110) mg/dl Lactate 1.7 (0.7-2.1) mmol/L FiO2 21.0 % Sodium 141 139.0 (132-148) mmol/L Potassium 4.7 (3.6-5.0) mmol/L Chloride 93 L 99.0 (98-107) mmol/L Carbon Dioxide 31 (21-33) mmol/L Anion Gap 22 H (10-20) BUN 137 H* (7-21) mg/dL Creatinine 8.8 H* (0.8-1.5) mg/dl Est GFR ( Amer) 8 Est GFR (Non-Af Amer) 6 Random Glucose 192 H (70-110) mg/dL Calcium 8.0 L (8.4-10.5) mg/dL Phosphorus (2.5-4.5) mg/dL Magnesium (1.7-2.2) mg/dL Total Bilirubin (0.2-1.3) mg/dL AST (17-59) U/L ALT (7-56) U/L Alkaline Phosphatase (38-126) U/L Total Creatine Kinase 1422 H (35-230) U/L CK-MB (CK-2) 8.4 H (0.0-3.6) ng/mL CK-MB (CK-2) % 0.6 L (2.5-3.0) % Total Protein (5.8-8.3) g/dL Albumin (3.0-4.8) g/dL Globulin gm/dL Albumin/Globulin Ratio (1.1-1.8) Venous Blood Potassium 4.7 (3.6-5.2) mmol/L 07/03/18 07/03/18 07/02/18 Range/Units 06:05 06:05 23:15 WBC 4.7 D (4.5-11.0) 10^3/uL RBC 3.50 (3.5-6.1) 10^6/uL Hgb 10.7 L (14.0-18.0) g/dL Hct 31.9 L (42.0-52.0) % MCV 91.1 (80.0-105.0) fl MCH 30.6 (25.0-35.0) pg MCHC 33.5 (31.0-37.0) g/dl RDW 14.8 H (11.5-14.5) % Plt Count 125 (120.0-450.0) 10^3/uL MPV 10.2 (7.0-11.0) fl Neut % (Auto) 88.1 H (50.0-68.0) % Lymph % (Auto) 6.8 L (22.0-35.0) % Bowie % (Auto) 4.9 (1.0-6.0) % Eos % (Auto) 0.0 L (1.5-5.0) % Baso % (Auto) 0.2 (0.0-3.0) % Lymph # (Auto) 0.3 L (1.2-3.4) Bowie # (Auto) 0.2 (0.1-0.6) Eos # (Auto) 0.0 (0.0-0.7) Baso # (Auto) 0.01 (0.0-2.0) K/mm3 Absolute Neuts (auto) 4.18 (1.4-6.5) pO2 (30-55) mm/Hg VBG pH (7.32-7.43) VBG pCO2 (40-60) VBG HCO3 (21-28) mmol/l VBG Total CO2 (22-28) mmol.L VBG O2 Sat (Calc) (40-65) % VBG Base Excess (0.0-2.0) mmol/L VBG Potassium (3.6-5.2) mmol/L Glucose (75-110) mg/dl Lactate (0.7-2.1) mmol/L FiO2 % Sodium 142 141 (132-148) mmol/L Potassium 4.7 5.1 H (3.6-5.0) mmol/L Chloride 96 L 96 L (98-107) mmol/L Carbon Dioxide 31 30 (21-33) mmol/L Anion Gap 20 20 (10-20) BUN 127 H* 126 H* (7-21) mg/dL Creatinine 9.5 H* 9.6 H* (0.8-1.5) mg/dl Est GFR ( Amer) 7 7 Est GFR (Non-Af Amer) 6 6 Random Glucose 180 H 151 H (70-110) mg/dL Calcium 8.3 L 8.2 L (8.4-10.5) mg/dL Phosphorus 3.8 (2.5-4.5) mg/dL Magnesium 2.2 (1.7-2.2) mg/dL Total Bilirubin 1.1 (0.2-1.3) mg/dL AST 120 H D (17-59) U/L ALT 66 H (7-56) U/L Alkaline Phosphatase 78 (38-126) U/L Total Creatine Kinase (35-230) U/L CK-MB (CK-2) (0.0-3.6) ng/mL CK-MB (CK-2) % (2.5-3.0) % Total Protein 6.6 (5.8-8.3) g/dL Albumin 3.2 (3.0-4.8) g/dL Globulin 3.3 gm/dL Albumin/Globulin Ratio 1.0 L (1.1-1.8) Venous Blood Potassium (3.6-5.2) mmol/L 07/02/18 Range/Units 17:30 WBC (4.5-11.0) 10^3/uL RBC (3.5-6.1) 10^6/uL Hgb (14.0-18.0) g/dL Hct (42.0-52.0) % MCV (80.0-105.0) fl MCH (25.0-35.0) pg MCHC (31.0-37.0) g/dl RDW (11.5-14.5) % Plt Count (120.0-450.0) 10^3/uL MPV (7.0-11.0) fl Neut % (Auto) (50.0-68.0) % Lymph % (Auto) (22.0-35.0) % Bowie % (Auto) (1.0-6.0) % Eos % (Auto) (1.5-5.0) % Baso % (Auto) (0.0-3.0) % Lymph # (Auto) (1.2-3.4) Bowie # (Auto) (0.1-0.6) Eos # (Auto) (0.0-0.7) Baso # (Auto) (0.0-2.0) K/mm3 Absolute Neuts (auto) (1.4-6.5) pO2 (30-55) mm/Hg VBG pH (7.32-7.43) VBG pCO2 (40-60) VBG HCO3 (21-28) mmol/l VBG Total CO2 (22-28) mmol.L VBG O2 Sat (Calc) (40-65) % VBG Base Excess (0.0-2.0) mmol/L VBG Potassium (3.6-5.2) mmol/L Glucose (75-110) mg/dl Lactate (0.7-2.1) mmol/L FiO2 % Sodium 142 (132-148) mmol/L Potassium 4.7 (3.6-5.0) mmol/L Chloride 98 (98-107) mmol/L Carbon Dioxide 31 (21-33) mmol/L Anion Gap 18 (10-20) BUN 126 H* (7-21) mg/dL Creatinine 9.4 H* (0.8-1.5) mg/dl Est GFR ( Amer) 7 Est GFR (Non-Af Amer) 6 Random Glucose 157 H (70-110) mg/dL Calcium 8.4 (8.4-10.5) mg/dL Phosphorus (2.5-4.5) mg/dL Magnesium (1.7-2.2) mg/dL Total Bilirubin (0.2-1.3) mg/dL AST (17-59) U/L ALT (7-56) U/L Alkaline Phosphatase (38-126) U/L Total Creatine Kinase (35-230) U/L CK-MB (CK-2) (0.0-3.6) ng/mL CK-MB (CK-2) % (2.5-3.0) % Total Protein (5.8-8.3) g/dL Albumin (3.0-4.8) g/dL Globulin gm/dL Albumin/Globulin Ratio (1.1-1.8) Venous Blood Potassium (3.6-5.2) mmol/L Laboratory Results - last 24 hr 07/02/18 07/02/18 07/03/18 17:30 23:15 06:05 WBC 4.7 D RBC 3.50 Hgb 10.7 L Hct 31.9 L MCV 91.1 MCH 30.6 MCHC 33.5 RDW 14.8 H Plt Count 125 MPV 10.2 Neut % (Auto) 88.1 H Lymph % (Auto) 6.8 L Bowie % (Auto) 4.9 Eos % (Auto) 0.0 L Baso % (Auto) 0.2 Lymph # (Auto) 0.3 L Bowie # (Auto) 0.2 Eos # (Auto) 0.0 Baso # (Auto) 0.01 Absolute Neuts (auto) 4.18 pO2 VBG pH VBG pCO2 VBG HCO3 VBG Total CO2 VBG O2 Sat (Calc) VBG Base Excess VBG Potassium Glucose Lactate FiO2 Sodium 142 141 Potassium 4.7 5.1 H Chloride 98 96 L Carbon Dioxide 31 30 Anion Gap 18 20 BUN 126 H* 126 H* Creatinine 9.4 H* 9.6 H* Est GFR ( Amer) 7 7 Est GFR (Non-Af Amer) 6 6 Random Glucose 157 H 151 H Calcium 8.4 8.2 L Phosphorus Magnesium Total Bilirubin AST ALT Alkaline Phosphatase Total Creatine Kinase CK-MB (CK-2) CK-MB (CK-2) % Total Protein Albumin Globulin Albumin/Globulin Ratio Venous Blood Potassium 07/03/18 07/03/18 07/03/18 06:05 06:05 06:05 WBC RBC Hgb Hct MCV MCH MCHC RDW Plt Count MPV Neut % (Auto) Lymph % (Auto) Bowie % (Auto) Eos % (Auto) Baso % (Auto) Lymph # (Auto) Bowie # (Auto) Eos # (Auto) Baso # (Auto) Absolute Neuts (auto) pO2 43 VBG pH 7.47 H VBG pCO2 46.0 VBG HCO3 33.5 H VBG Total CO2 34.9 H VBG O2 Sat (Calc) 81.8 H VBG Base Excess 8.6 H VBG Potassium 4.7 Glucose 177 H Lactate 1.7 FiO2 21.0 Sodium 142 139.0 Potassium 4.7 Chloride 96 L 99.0 Carbon Dioxide 31 Anion Gap 20 BUN 127 H* Creatinine 9.5 H* Est GFR ( Amer) 7 Est GFR (Non-Af Amer) 6 Random Glucose 180 H Calcium 8.3 L Phosphorus 3.8 Magnesium 2.2 Total Bilirubin 1.1 AST 120 H D ALT 66 H Alkaline Phosphatase 78 Total Creatine Kinase 1422 H CK-MB (CK-2) 8.4 H CK-MB (CK-2) % 0.6 L Total Protein 6.6 Albumin 3.2 Globulin 3.3 Albumin/Globulin Ratio 1.0 L Venous Blood Potassium 4.7 07/03/18 12:05 WBC RBC Hgb Hct MCV MCH MCHC RDW Plt Count MPV Neut % (Auto) Lymph % (Auto) Bowie % (Auto) Eos % (Auto) Baso % (Auto) Lymph # (Auto) Bowie # (Auto) Eos # (Auto) Baso # (Auto) Absolute Neuts (auto) pO2 VBG pH VBG pCO2 VBG HCO3 VBG Total CO2 VBG O2 Sat (Calc) VBG Base Excess VBG Potassium Glucose Lactate FiO2 Sodium 141 Potassium 4.7 Chloride 93 L Carbon Dioxide 31 Anion Gap 22 H BUN 137 H* Creatinine 8.8 H* Est GFR ( Amer) 8 Est GFR (Non-Af Amer) 6 Random Glucose 192 H Calcium 8.0 L Phosphorus Magnesium Total Bilirubin AST ALT Alkaline Phosphatase Total Creatine Kinase CK-MB (CK-2) CK-MB (CK-2) % Total Protein Albumin Globulin Albumin/Globulin Ratio Venous Blood Potassium Critical Care Progress Note - Nutrition Nutrition: Nutrition Category Date Time Status Liquid Diet [DIET] Diets 07/03/18 Lunch Ordered Addendum Addendum: 07/03/18 15:34 MICU Attending addendum Patient seen and examined with housestaff on 07/01 Agree with resident note above with the follow add/exceptions 52 year old male with past medical history of crohn's disease s/p colostomy, Susac syndrome, psoriasis, cerebral vasculitis with bilateral hearing loss who after being found on the floor for about 1-2 days now in acute renal failure. CT abd/pelvis shows incarcerated ventral hernia with partial SBO adjacent to colostomy however was not taken to OR by surg. Surg and GI discussing whether this may be more of a crohn's flare and if he can be conservatively managed without having surgery given his very high risk. Thus far he continues to improve clinically - less abd pain -remains hemodyn stable and afebrile - making urine Fluid resuscitation. Monitor I/O. Follow cultures and cont broad empiric abx as well vanc/zosyn f/u nephro recs for possbile HD FULL CODE Rest of care as per above resident note Curt Tyson MD MICU Attending
[2018-07-03 08:57] LABS: CK MB% 0.6 % (2.5-3.0); CK-MB 8.4 ng/mL (0.0-3.6)
[2018-07-03] MEDS: Piperacillin/Tazobact 3.375 gm 100 ML IVPB SCH ×2 (09:35→22:33)
--- NOTE | 2018-07-03 11:01 | CP.PCM.PN ---
Subjective - Date & Time of Evaluation Date of Evaluation: 07/03/18 Time of Evaluation: 10:59 - Subjective Subjective: SURGERY NOTE FOR DR. ZAMUDIO 52M seen and examined at bedside. Patient states he is hungry, tired and wants to eat. Denies nausea or vomiting. Objective - Vital Signs/Intake and Output Vital Signs (last 24 hours): Temp Pulse Resp BP Pulse Ox 98.4 F 76 22 147/82 92 L 07/03/18 08:10 07/03/18 08:10 07/03/18 08:10 07/03/18 08:00 07/03/18 08:10 Intake and Output: 07/03/18 07/03/18 06:59 18:59 Intake Total 2000 Output Total 1400 Balance 600 - Medications Medications: Current Medications Famotidine (Pepcid) 20 mg IVP DAILY [facility] Last Admin: 07/02/18 09:26 Dose: 20 mg Piperacillin Sod/Tazobactam Sod (Zosyn 3.375 In Ns 100ml) 100 mls @ 25 mls/hr IVPB Q12 [facility]; Protocol Stop: 07/11/18 10:01 Last Admin: 07/03/18 09:35 Dose: 25 mls/hr Sodium Bicarbonate 100 meq/ (Dextrose) 1,100 mls @ 150 mls/hr IV .Q7H20M [facility] Last Admin: 07/03/18 05:00 Dose: 150 mls/hr Metronidazole (Flagyl) 500 mg in 100 mls @ 100 mls/hr IVPB Q8 [facility]; Protocol Last Admin: 07/03/18 08:16 Dose: 100 mls/hr Methylprednisolone (Solu-Medrol) 60 mg IVP Q12 [facility] Stop: 07/04/18 16:22 Last Admin: 07/03/18 02:57 Dose: 60 mg Morphine Sulfate (Morphine) 2 mg IVP Q4H PRN PRN Reason: Pain, severe (8-10) Last Admin: 07/02/18 04:33 Dose: 2 mg - Labs Labs: 07/03/18 06:05 07/03/18 06:05 PT 18.2 SECONDS (9.4-12.5) H 07/01/18 08:50 INR 1.61 07/01/18 08:50 APTT 52.2 Seconds (26.9-38.3) H 07/01/18 08:50 - Constitutional Appears: Non-toxic, No Acute Distress - Respiratory Exam Respiratory Exam: Clear to Ausculation Bilateral, NORMAL BREATHING PATTERN - Cardiovascular Exam Cardiovascular Exam: REGULAR RHYTHM, +S1, +S2 - GI/Abdominal Exam GI & Abdominal Exam: Soft. absent: Distended, Firm, Guarding, Rigid, Tenderness Additional comments: area of redness around ostomy is improving. No stool in ostomy - Neurological Exam Neurological Exam: Alert, Awake Assessment and Plan - Assessment and Plan (Free Text) Assessment: 52M with ventral hernia incarcerated, improving Plan: - advance diet to liquid for comfort - pain control - serial abdominal exams Further recs discuss with Dr. Bipin Christensen, PGY3
--- NOTE | 2018-07-03 11:09 | CP.PCM.PN ---
<Fede Gaston - Last Filed: 07/03/18 14:57> Subjective - Date & Time of Evaluation Date of Evaluation: 07/03/18 Time of Evaluation: 09:20 - Subjective Subjective: Infectious disease progress note: Patient seen and examined at bedside. No acute events overnight. Patient complains about abdominal pain secondary to the surgery. fever 100.4F. Requesting a diet. No other complaints. 12 point ROS performed and negative unless stated above. Objective - Vital Signs/Intake and Output Vital Signs (last 24 hours): Temp Pulse Resp BP Pulse Ox 98.4 F 76 22 147/82 92 L 07/03/18 08:10 07/03/18 08:10 07/03/18 08:10 07/03/18 08:00 07/03/18 08:10 Intake and Output: 07/03/18 07/03/18 06:59 18:59 Intake Total 2000 Output Total 1400 Balance 600 - Medications Medications: Current Medications Famotidine (Pepcid) 20 mg IVP DAILY [facility] Last Admin: 07/02/18 09:26 Dose: 20 mg Piperacillin Sod/Tazobactam Sod (Zosyn 3.375 In Ns 100ml) 100 mls @ 25 mls/hr IVPB Q12 [facility]; Protocol Stop: 07/11/18 10:01 Last Admin: 07/03/18 09:35 Dose: 25 mls/hr Sodium Bicarbonate 100 meq/ (Dextrose) 1,100 mls @ 150 mls/hr IV .Q7H20M [facility] Last Admin: 07/03/18 05:00 Dose: 150 mls/hr Metronidazole (Flagyl) 500 mg in 100 mls @ 100 mls/hr IVPB Q8 [facility]; Protocol Last Admin: 07/03/18 08:16 Dose: 100 mls/hr Methylprednisolone (Solu-Medrol) 60 mg IVP Q12 [facility] Stop: 07/04/18 16:22 Last Admin: 07/03/18 02:57 Dose: 60 mg Morphine Sulfate (Morphine) 2 mg IVP Q4H PRN PRN Reason: Pain, severe (8-10) Last Admin: 07/02/18 04:33 Dose: 2 mg - Labs Labs: 07/03/18 06:05 07/03/18 06:05 PT 18.2 SECONDS (9.4-12.5) H 07/01/18 08:50 INR 1.61 07/01/18 08:50 APTT 52.2 Seconds (26.9-38.3) H 07/01/18 08:50 - Constitutional Appears: No Acute Distress - Head Exam Head Exam: ATRAUMATIC, NORMOCEPHALIC - Eye Exam Eye Exam: EOMI - ENT Exam ENT Exam: Mucous Membranes Moist - Respiratory Exam Respiratory Exam: Clear to Ausculation Bilateral. absent: Wheezes - Cardiovascular Exam Cardiovascular Exam: REGULAR RHYTHM, +S1, +S2 - GI/Abdominal Exam GI & Abdominal Exam: Soft. absent: Distended, Tenderness Additional comments: Dressing clean dry and intact - Neurological Exam Neurological Exam: Alert, Awake - Psychiatric Exam Psychiatric exam: Agitated - Skin Skin Exam: Dry, Warm Assessment and Plan - Assessment and Plan (Free Text) Assessment: Severe sepsis secondary to incarcerated hernia with small bowel obstruction and abdominal wall cellulitis Blood culture PNA FISH showed coag negative staph bacteremia likely a contamination Acute kidney injury Metabolic acidosis Crohn's disease Susac syndrome Hypogammaglobulinemia Transaminitis Rhabdomyolysis Received 1 dose of vancomycin yesterday, continue with Zosyn We will discontinue Flagyl Follow-up septic work-up - coag negative staph bacteremia likely a contamination x 1 bottle F/u echo Blood culture PNA FISH showed coag negative staph bacteremia likely a contamination, follow-up repeat blood cultures Follow-up nephrology, surgery, and cardiology recommendations Continue to monitor for any changes Case and plan to be reviewed and discussed with Dr. Clay <Ned Clay - Last Filed: 07/03/18 15:02> Objective - Vital Signs/Intake and Output Vital Signs (last 24 hours): Temp Pulse Resp BP Pulse Ox 98.6 F 78 15 147/78 93 L 07/03/18 14:40 07/03/18 14:40 07/03/18 14:40 07/03/18 14:00 07/03/18 14:40 Intake and Output: 07/03/18 07/03/18 06:59 18:59 Intake Total 2000 Output Total 1400 Balance 600 - Medications Medications: Current Medications Famotidine (Pepcid) 20 mg IVP DAILY [facility] Last Admin: 07/03/18 10:00 Dose: 20 mg Piperacillin Sod/Tazobactam Sod (Zosyn 3.375 In Ns 100ml) 100 mls @ 25 mls/hr IVPB Q12 [facility]; Protocol Stop: 07/11/18 10:01 Last Admin: 07/03/18 09:35 Dose: 25 mls/hr Sodium Bicarbonate 100 meq/ (Dextrose) 1,100 mls @ 150 mls/hr IV .Q7H20M [facility] Last Admin: 07/03/18 13:53 Dose: 150 mls/hr Methylprednisolone (Solu-Medrol) 60 mg IVP Q12 [facility] Stop: 07/04/18 16:22 Last Admin: 07/03/18 10:00 Dose: 60 mg Morphine Sulfate (Morphine) 2 mg IVP Q4H PRN PRN Reason: Pain, severe (8-10) Last Admin: 07/03/18 14:49 Dose: 2 mg - Labs Labs: 07/03/18 06:05 07/03/18 12:05 PT 18.2 SECONDS (9.4-12.5) H 07/01/18 08:50 INR 1.61 07/01/18 08:50 APTT 52.2 Seconds (26.9-38.3) H 07/01/18 08:50 Attending/Attestation - Attestation I have personally seen and examined this patient.: Yes I have fully participated in the care of the patient.: Yes I have reviewed all pertinent clinical information, including history, physical exam and plan: Yes
[2018-07-03] MEDS ORDERED: Mineral Oil Enema 135 ml RC ONE (13:23)
[2018-07-03] MEDS: Morphine 2 mg/ml ISec IVP PRN (14:49)
--- NOTE | 2018-07-03 18:09 | CON ---
DATE OF CONSULTATION: 07/03/2018 HISTORY OF PRESENT ILLNESS: In short, the patient is a 52-year-old male with multiple medical issues including Crohn's disease. The patient is status post colostomy, Susac syndrome. The patient presented to the emergency room complaining of generalized weakness. Based on emergency room documentation, the patient called his brother complaining that he is having nausea and vomiting, and the patient was found on the floor unconscious, and the patient was admitted into ICU. In ICU, the patient was found to have leukocytosis, tachycardia, and code sepsis was called. The patient was found to have gram-positive cocci in the blood. Psych consult was called for evaluation of depressive symptoms. The patient was seen and examined. This marine underwriter is familiar with this patient from the previous consultation services here in [place], which took place in 07/2017. Back then, the patient was seen by psychiatrist at [facility] and was on multiple psychotropic medications. Back then, the patient was on Wellbutrin, Elavil, Lyrica, Paxil, Seroquel, and this marine underwriter suggested medication adjustment, but the patient was discharged back then. Based on report this time, the patient is still on Wellbutrin, but medication cannot be confirmed because as per the patient he received all of the prescriptions through the mail, and he does not remember the name of the pharmacy or what medication he needs to be on. The patient's daughter, Asuncion, is next to the patient and Asuncion was advised to bring all of the medications to the hospital or confirm it with the patient's family. Asuncion verbalized understanding. As per collaterals from Asuncion, the patient gave verbal consent for full collaterals. The patient was more depressed lately, was saying that he is hopeless, at the same time family is working on transferring the patient and looking for apartment closer to the family. The patient reported at times he feels hopeless and helpless, but denied any intent or plan to kill himself due to his anabaptist beliefs. PHYSICAL EXAMINATION: VITAL SIGNS: Reviewed temperature 98.6, pulse 78, respirations 15. MEDICATIONS: Reviewed. The patient is on Pepcid, Solu-Medrol, morphine, Zosyn, and sodium bicarbonate. LABORATORY DATA: Labs reviewed. Coagulation reviewed. Blood gas reviewed. Chemistry reviewed. BUN and creatinine were elevated. Urinalysis, blood show high bilirubin, moderate. Microbiology, as this marine underwriter reported above, positive for gram-positive cocci in blood. MENTAL STATUS EXAMINATION: The patient presented to be alert, depressed. Affect, flat and tearful. Thought process, concrete. Thought content, the patient denied any psychosis, but feeling hopelessness. Insight and judgment seemed to be fair. Impulses are well controlled. IMPRESSION: Mood disorder due to general medical condition, rule out major depressive disorder. PLAN: Medication needs to be confirmed with the patient's family. This marine underwriter will follow up and advise accordingly. Quarter Backer need to be involved. Should you have any questions give me a call back. Brandie Schaefer MD
--- NOTE | 2018-07-03 18:52 | CARD ---
APPROVED REPORT Date of service: 07/03/2018 EXAM: Two-dimensional and M-mode echocardiogram with Doppler and color Doppler. INDICATION Syncope 2D DIMENSIONS Left Atrium (2D)3.9 (1.6-4.0cm)IVSd1.0 (0.7-1.1cm) LVDd4.7 (3.9-5.9cm)PWd1.2 (0.7-1.1cm) LVDs3.1 (2.5-4.0cm)FS (%) 34.5 % LVEF (%)63.5 (>50%) M-Mode DIMENSIONS Aortic Root3.40 (2.2-3.7cm)Aortic Cusp Exc.2.00 (1.5-2.0cm) Aortic Valve AoV Peak Yieapvnu716.0cm/Hoang Peak GR.13mmHg Mitral Valve E/A ratio0.0 TDI E/Lateral E'0.0E/Medial E'0.0 Tricuspid Valve TR Peak [id number] [id number] Peak Gr.23mmHg [id number] LEFT VENTRICLE The left ventricle is normal size. There is normal left ventricular wall thickness. The left ventricular function is normal.EF-55% There is normal LV segmental wall motion. The left ventricular diastolic function is normal. No left ventricle thrombus noted on this study. There is no ventricular septal defect visualized. There is no left ventricular aneurysm. There is no mass noted in the left ventricle. AORTIC VALVE The aortic valve is thickened but opens well. No aortic regurgitation is present. There is no aortic valvular stenosis. There is no aortic valvular vegetation. MITRAL VALVE The mitral valve is thickened but opens well. Mitral regurgitation is trace. There is no mitral valve stenosis. There is no evidence of mitral valve prolapse. TRICUSPID VALVE The tricuspid valve leaflets are thickened , but open well. There is mild tricuspid regurgitation.RVSP-33 mmof hg. There is no tricuspid valve stenosis. There is no tricuspid valve prolapse or vegetation. PULMONIC VALVE The pulmonary valve is normal in structure. There is trace pulmonic valvular regurgitation. There is no pulmonic valvular stenosis. GREAT VESSELS The aortic root is normal in size. The ascending aorta is normal in size. The pulmonary artery is normal. The IVC is normal in size and collapses >50% with inspiration. PERICARDIAL EFFUSION There is no pleural effusion. There is no pericardial effusion. <Conclusion> The left ventricle is normal size. There is normal left ventricular wall thickness. The left ventricular function is normal.EF-55% Mitral regurgitation is trace. There is mild tricuspid regurgitation.RVSP-33 mmof hg. The IVC is normal in size and collapses >50% with inspiration. There is no pericardial effusion. No vegetation or thrombus noted.
--- NOTE | 2018-07-03 21:18 | PN ---
DATE: 07/03/2018 REASON FOR CONSULTATION: Cardiac evaluation, rule out syncope. SUBJECTIVE: The patient denies any chest pain, shortness of breath or any palpitation. PHYSICAL EXAMINATION: As follows: GENERAL: Not in apparent distress. VITAL SIGNS: Temperature afebrile, heart rate 78, and blood pressure 147/78. HEENT: PERRLA intact. NECK: Supple. No carotid bruit or thyromegaly. CHEST: Clear to auscultation. HEART: S1 and S2, regular. ABDOMEN: Soft. EXTREMITIES: Clubbing and cyanosis negative. LABORATORY DATA: Blood workup: WBC 4.3, hemoglobin 10.3, hematocrit 31.9, platelet count 125. Chemistry shows sodium 140, potassium 4, chloride 92, anion gap of 20, BUN 120, creatinine 9.2, troponin 0.09, MB fraction 0.9. Total CPK 1422. Initially it was 5980. IMPRESSION: This is a 52-year-old male with past medical history significant for bowel perforation, history of Crohn's disease, extensive abdominal surgery secondary to perforation of the bowel and Crohn's disease, admitted here after his fall, found to be in the floor. He has questionable history of coffee-ground emesis. The patient came with acute rhabdomyolysis, total CPK 5000 and BUN 142 and creatinine 9.2 and troponin 0.09 with MB fraction 0.9. No evidence of acute myocardial infarction. Increased borderline troponin secondary to rhabdomyolysis. 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 López. History of Crohn's disease, as mentioned history of perforation secondary to Crohn's disease with the patient's history of extensive bowel resection and colostomy eight years ago. The patient denies any history of coronary artery disease. History of last echocardiogram done in April 2017 that shows good left ventricular function, no vegetation. The patient had peripheral intervention in 04/2018. RECOMMENDATIONS: The patient has acute rhabdomyolysis. Continue IV fluids. No evidence of CA, intermediate troponin secondary to rhabdo, troponin 0.09 in face of creatinine 9.2 and MB fraction 0.6, ruled out CA. History of syncope, rule out fall. Acute kidney failure, Crohn's disease, diabetes mellitus, recommended to get echocardiogram to follow up left ventricular function, continue hydration and monitor renal function closely. Continue broad-spectrum antibiotics. Further recommendation depending upon hospital course. We will follow with you. Monitor potassium closely. Thank you Dr. López for the opportunity in taking care of the patient Andrew Bonilla. Shea Herndon MD
--- NOTE | 2018-07-03 23:29 | PN ---
DATE: 07/03/2018 SUBJECTIVE: The patient is seen in the ICU. He is lying in bed. He is awake. He is very agitated. He is very upset that he has been sick for 20 years. He complains of abdominal pain. He complains of chronic pain. Daughter is at bedside. PHYSICAL EXAMINATION GENERAL: Middle-aged male lying in bed in moderate distress. VITAL SIGNS: Blood pressure 140/69, heart rate 89, respiratory rate 20 and temperature of 99, T-max is 99. HEENT: Normocephalic, atraumatic, positive pallor. NECK: Supple, no JVD. LUNGS: Bilateral equal air entry, bilateral equal expansion, no rales. CARDIAC: S1 and S2, regular rate and rhythm, no murmur, no rub. ABDOMEN: Distended, soft, boggy erythematous protrusion from the midline, left lower quadrant colostomy, diffuse tenderness. EXTREMITIES: No lower extremity edema. INTAKE AND OUTPUT: 3950/2250. LABORATORY DATA: WBC 4.7, hemoglobin 10.7, hematocrit 32 and platelets 125. Sodium 141, potassium 4.7, chloride 93, CO2 of 31, BUN 137, creatinine 8.8, glucose 192 and calcium 8.0. CPK protein 1422. Urinalysis from the , dark yellow slightly cloudy, pH 6.0, specific gravity 1.025, protein greater than 300, blood large and moderate bilirubin. Blood culture from the , Gram-positive cocci in one set. Repeat blood cultures from the negative. Urine culture no growth. Echocardiogram; normal left ventricular size, normal left ventricular thickness, ejection fraction 55%. No pericardial effusion. No vegetation or thrombus. Renal ultrasound done on the , right kidney 11 cm and left kidney 11 cm, unremarkable ultrasound. CURRENT MEDICATIONS: Morphine, Pepcid, D5W with 2 ampules of bicarb at 150, Zosyn 3.375 every 12 hours, Flagyl 500 every 8 hours and enema. ASSESSMENT: 1. Acute kidney injury with life-threatening hyperkalemia and metabolic acidosis. 2. Rhabdomyolysis, volume depletion. 3. Flare up of Crohn's disease. 4. Susac syndrome with cerebral vasculitis. 5. History of hypogammaglobulinemia. 6. History of psoriasis. 7. History of depression. 8. Elevated liver function test likely secondary to rhabdomyolysis. PLAN: 1. Renal parameters stable, creatinine is slightly improved, continue IV fluids with sodium bicarbonate. 2. Repeat urinalysis, achieve urine pH of greater than 6.5. 3. The patient is making more urine, now suspect polyuric phase of ATN now. 4. No indication for renal replacement therapy, no uremic signs or symptoms. 5. In light of increasing urine output, hoping to see recovery process start. Case discussed with ICU attending at length, case discussed with ICU residents, more than 35 minutes was spent in the care of this critically ill patient. Case discussed with daughter and the patient at bedside. Cat Rice MD
[2018-07-03] MEDS ORDERED: DiphenhydrAMINE 50 mg/ml Inj IVP STA (23:47)
--- NOTE | 2018-07-03 23:57 | CP.PCM.PN ---
Subjective - Date & Time of Evaluation Date of Evaluation: 07/03/18 Time of Evaluation: 14:30 - Subjective Subjective: Doing better the erythema has decreased Objective - Vital Signs/Intake and Output Vital Signs (last 24 hours): Temp Pulse Resp BP Pulse Ox 98.4 F 81 11 L 181/78 H 91 L 07/03/18 22:00 07/03/18 22:00 07/03/18 22:00 07/03/18 22:00 07/03/18 22:00 Intake and Output: 07/03/18 07/04/18 18:59 06:59 Intake Total 2750 Output Total 2750 Balance 0 - Medications Medications: Current Medications Famotidine (Pepcid) 20 mg IVP DAILY [facility] Last Admin: 07/03/18 10:00 Dose: 20 mg Piperacillin Sod/Tazobactam Sod (Zosyn 3.375 In Ns 100ml) 100 mls @ 25 mls/hr IVPB Q12 [facility]; Protocol Stop: 07/11/18 10:01 Last Admin: 07/03/18 22:33 Dose: 25 mls/hr Sodium Bicarbonate 100 meq/ (Dextrose) 1,100 mls @ 150 mls/hr IV .Q7H20M [facility] Last Admin: 07/03/18 22:34 Dose: 150 mls/hr Methylprednisolone (Solu-Medrol) 60 mg IVP Q12 [facility] Stop: 07/04/18 16:22 Last Admin: 07/03/18 22:35 Dose: 60 mg Morphine Sulfate (Morphine) 2 mg IVP Q4H PRN PRN Reason: Pain, severe (8-10) Last Admin: 07/03/18 14:49 Dose: 2 mg - Labs Labs: 07/03/18 06:05 07/03/18 12:05 PT 18.2 SECONDS (9.4-12.5) H 07/01/18 08:50 INR 1.61 07/01/18 08:50 APTT 52.2 Seconds (26.9-38.3) H 07/01/18 08:50 - Head Exam Head Exam: ATRAUMATIC, NORMOCEPHALIC - Eye Exam Eye Exam: EOMI, PERRL - ENT Exam ENT Exam: Mucous Membranes Moist, Normal Oropharynx - Neck Exam Neck Exam: Full ROM. absent: Lymphadenopathy - Respiratory Exam Respiratory Exam: Clear to Ausculation Bilateral, NORMAL BREATHING PATTERN. absent: Rales, Rhonchi - Cardiovascular Exam Cardiovascular Exam: REGULAR RHYTHM, +S1, +S2 - GI/Abdominal Exam GI & Abdominal Exam: Soft, Normal Bowel Sounds. absent: Tenderness - Neurological Exam Neurological Exam: Alert, Awake, Oriented x3 Assessment and Plan - Assessment and Plan (Free Text) Assessment: Incarcerated ventral hernia 2. Crohn's disease 3. Soucek syndrome 4. Acute kidney injury 5. Sepsis No acute exacerbation of Crohn's. Discussed with the surgical attending earlier. No plan for starting immunosuppressive therapy Plan: 1. Continue the antibiotics next 2. Discussed with the surgical team 3. Discussed with the oncologist and also with surgical team.
--- NOTE | 2018-07-04 00:38 | CP.PCM.PN ---
Subjective - Date & Time of Evaluation Date of Evaluation: 07/04/18 Time of Evaluation: 00:26 - Subjective Subjective: Patient was seen for restlessness and agitation. Has no complaints. Medical record was reviewed . H & H have been dropping. APTT has been prolonged. Anion gap is increasing. Have been receiving steroids. History of possible fall.Head injury.(Slow ICH , Cerebral angitis.) This 52 year old white male was with altered mental status,coffee ground emesis, feeling of not well being. Has PMH of: Crohn's disease Susac syndrome Transaminitis. Hypogammaglobulinemia. Anemia. Bilateral hearing loss Depression. History of bowel perforation History of bowel resection. Obesity. Objective - Vital Signs/Intake and Output Vital Signs (last 24 hours): Temp Pulse Resp BP Pulse Ox 98.4 F 81 11 L 181/78 H 91 L 07/03/18 22:00 07/03/18 22:00 07/03/18 22:00 07/03/18 22:00 07/03/18 22:00 Intake and Output: 07/03/18 07/04/18 18:59 06:59 Intake Total 2750 Output Total 2750 Balance 0 - Medications Medications: Current Medications Famotidine (Pepcid) 20 mg IVP DAILY [facility] Last Admin: 07/03/18 10:00 Dose: 20 mg Piperacillin Sod/Tazobactam Sod (Zosyn 3.375 In Ns 100ml) 100 mls @ 25 mls/hr IVPB Q12 [facility]; Protocol Stop: 07/11/18 10:01 Last Admin: 07/03/18 22:33 Dose: 25 mls/hr Sodium Bicarbonate 100 meq/ (Dextrose) 1,100 mls @ 150 mls/hr IV .Q7H20M [facility] Last Admin: 07/03/18 22:34 Dose: 150 mls/hr Methylprednisolone (Solu-Medrol) 60 mg IVP Q12 [facility] Stop: 07/04/18 16:22 Last Admin: 07/03/18 22:35 Dose: 60 mg Morphine Sulfate (Morphine) 2 mg IVP Q4H PRN PRN Reason: Pain, severe (8-10) Last Admin: 07/03/18 14:49 Dose: 2 mg - Labs Labs: 07/03/18 06:05 07/03/18 12:05 PT 18.2 SECONDS (9.4-12.5) H 07/01/18 08:50 INR 1.61 07/01/18 08:50 APTT 52.2 Seconds (26.9-38.3) H 07/01/18 08:50 - Constitutional Appears: No Acute Distress - Head Exam Head Exam: ATRAUMATIC, NORMAL INSPECTION, NORMOCEPHALIC - Eye Exam Eye Exam: Normal appearance - ENT Exam ENT Exam: Normal External Ear Exam - Neck Exam Neck Exam: Normal Inspection - Respiratory Exam Respiratory Exam: NORMAL BREATHING PATTERN - Cardiovascular Exam Cardiovascular Exam: absent: JVD - GI/Abdominal Exam GI & Abdominal Exam: absent: Distended - Rectal Exam Rectal Exam: Deferred - Exam Additional comments: Deferred. - Extremities Exam Extremities Exam: Normal Inspection - Back Exam Back Exam: NORMAL INSPECTION - Neurological Exam Neurological Exam: Altered Additional comments: States that this is September then states that it is March. States taht he is somewhere else . - Psychiatric Exam Psychiatric exam: Agitated - Skin Skin Exam: Normal Color Assessment and Plan - Assessment and Plan (Free Text) Assessment: Agiation. AMS Sepsis Incarcerated hernia SBO SETH Crohn's disease Metabolic acidosis Susac syndrome Rhabdomyolysis Transaminitis. Hypogammaglobulinemia. Anemia. Coagulopathy Steroid psychosis? ICU Psychosis? R/O active bleeding ? Fall at home. Deafness Plan: Ativan 0.5 mg IV x 1. All AM labs stat instead of at 5 AM including CBC,CMP, Mag, Phos levels. ABG stat. FSBS stat. Pulse ox stat. Stool for guiac stat. Continue present management. May need neurocheck and CT of head(Hx ? fall). CCT Began 12:30 AM CCT End 01:04
[2018-07-04 00:53] LABS: BASO # 0.03 K/mm3 (0.0-2.0); BASO % 0.7 % (0.0-3.0); HEMOGLOBIN 10.8 g/dL (14.0-18.0); LYMPH # 0.4 (1.2-3.4); LYMPH % 8.5 % (22.0-35.0); MEAN CELL VOLUME 91.2 fl (80.0-105.0); MEAN CORPUSCULAR HEMOGLOBIN 30.7 pg (25.0-35.0); MEAN CORPUSCULAR HGB CONC 33.6 g/dl (31.0-37.0); MEAN PLATELET VOLUME 9.8 fl (7.0-11.0); MONO # 0.7 (0.1-0.6); MONO % 15.8 % (1.0-6.0); RBC 3.52 10^6/uL (3.5-6.1); RED CELL DISTRIBUTION WIDTH 14.8 % (11.5-14.5); WHITE BLOOD COUNT 4.4 10^3/uL (4.5-11.0)
[2018-07-04 01:29] LABS: ALBUMIN 3.4 g/dL (3.0-4.8); CALCIUM 8.4 mg/dL (8.4-10.5)
[2018-07-04] MEDS: Morphine 2 mg/ml ISec IVP PRN (02:35)
--- NOTE | 2018-07-04 05:00 | CP.PCM.CON ---
History of Present Illness - History of Present Illness History of Present Illness: SURGERY NOTE FOR DR. WALLIS Reason: 2nd opinion, r/o strangulated hernia 52M currently in the ICU presented on the 01 of July after being found down at home. Last time anybody heard from him was two days prior. When found he was alert and stated he felt too weak to call for help. When he came in he was septic, with a WBC of 16, had rhabdomyolysis, and acute kidney injury. He has a history of crohns, susac disease, and colostomy as a result of crohns complication. On arrival he he did have abdominal pain, and a incarcerated parastomal hernia with skin changes. Currently he states his pain is resolved, he denies nausea of vomiting and he is currently tolerating liquid diet. He has not had any significant output from ostomy in the last 2 days. Redness on hernia is improved since he came in to the hospital. 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) Other/Comment: slight speech impediment - RENAL Hx Chronic Kidney Disease: No - ENDOCRINE/METABOLIC Hx Endocrine Disorders: No - HEMATOLOGICAL/ONCOLOGICAL Hx Blood Transfusions: No Hx Blood Transfusion Reaction: No - INTEGUMENTARY Hx Dermatological Problems: Yes Hx Psoriasis: Yes - MUSCULOSKELETAL/RHEUMATOLOGICAL Hx Falls: Yes (found on floor today) - GASTROINTESTINAL Hx Gastrointestinal Disorders: Yes Hx Colostomy: Yes Hx Crohn's Disease: Yes (dx at 15 yrs old) Other/Comment: colostomy - GENITOURINARY/GYNECOLOGICAL Hx Genitourinary Disorders: No - PSYCHIATRIC Hx Substance Use: No - SURGICAL HISTORY Other/Comment: colostomy bag. abdominal sx - ANESTHESIA Hx Anesthesia Reactions: No Hx Malignant Hyperthermia: No Meds Allergies/Adverse Reactions: Allergies Allergy/AdvReac Type Severity Reaction Status Date / Time homeopathic substance (from Allergy Intermediate RASH Uncoded 07/01/18 08:44 Rosario) [facility] Allergy RASH Uncoded 07/01/18 08:44 - Medications Medications: Current Medications Famotidine (Pepcid) 20 mg IVP DAILY [facility] Last Admin: 07/03/18 10:00 Dose: 20 mg Piperacillin Sod/Tazobactam Sod (Zosyn 3.375 In Ns 100ml) 100 mls @ 25 mls/hr IVPB Q12 [facility]; Protocol Stop: 07/11/18 10:01 Last Admin: 07/03/18 22:33 Dose: 25 mls/hr Sodium Bicarbonate 100 meq/ (Dextrose) 1,100 mls @ 150 mls/hr IV .Q7H20M [facility] Last Admin: 07/03/18 22:34 Dose: 150 mls/hr Methylprednisolone (Solu-Medrol) 60 mg IVP Q12 [facility] Stop: 07/04/18 16:22 Last Admin: 07/03/18 22:35 Dose: 60 mg Morphine Sulfate (Morphine) 2 mg IVP Q4H PRN PRN Reason: Pain, severe (8-10) Last Admin: 07/04/18 02:35 Dose: 2 mg Physical Exam - Constitutional Appears: Non-toxic, No Acute Distress - Respiratory Exam Respiratory Exam: Clear to Auscultation Bilateral, NORMAL BREATHING PATTERN - Cardiovascular Exam Cardiovascular Exam: REGULAR RHYTHM, +S1, +S2 - GI/Abdominal Exam GI & Abdominal Exam: Soft, Tenderness. absent: Distended, Firm, Guarding, Rebound, Rigid Additional comments: parastomal hernia redness decreased no output from ostomy - Extremities Exam Extremities exam: Negative for: pedal edema, tenderness - Neurological Exam Neurological exam: Alert, Oriented x3 - Skin Skin Exam: Dry, Intact, Normal Color, Warm Results - Vital Signs Recent Vital Signs: Last Vital Signs Temp 97.9 F 07/04/18 03:34 Pulse 63 07/04/18 03:41 Resp 10 L 07/04/18 03:30 BP 181/78 H 07/03/18 22:00 Pulse Ox 92 L 07/04/18 03:34 - Labs Result Diagrams: 07/07/18 06:11 07/07/18 06:11 Labs: Laboratory Results - last 24 hr 07/03/18 07/03/18 07/03/18 06:05 06:05 06:05 WBC 4.7 D RBC 3.50 Hgb 10.7 L Hct 31.9 L MCV 91.1 MCH 30.6 MCHC 33.5 RDW 14.8 H Plt Count 125 MPV 10.2 Neut % (Auto) 88.1 H Lymph % (Auto) 6.8 L [place] % (Auto) 4.9 Eos % (Auto) 0.0 L Baso % (Auto) 0.2 Lymph # (Auto) 0.3 L [place] # (Auto) 0.2 Eos # (Auto) 0.0 Baso # (Auto) 0.01 Absolute Neuts (auto) 4.18 pO2 43 VBG pH 7.47 H VBG pCO2 46.0 VBG HCO3 33.5 H VBG Total CO2 34.9 H VBG O2 Sat (Calc) 81.8 H VBG Base Excess 8.6 H VBG Potassium 4.7 Sodium 142 139.0 Chloride 96 L 99.0 Glucose 177 H Lactate 1.7 FiO2 21.0 Potassium 4.7 Carbon Dioxide 31 Anion Gap 20 BUN 127 H* Creatinine 9.5 H* Est GFR ( Amer) 7 Est GFR (Non-Af Amer) 6 Random Glucose 180 H Calcium 8.3 L Phosphorus 3.8 Magnesium 2.2 Total Bilirubin 1.1 AST 120 H D ALT 66 H Alkaline Phosphatase 78 Total Creatine Kinase CK-MB (CK-2) CK-MB (CK-2) % Total Protein 6.6 Albumin 3.2 Globulin 3.3 Albumin/Globulin Ratio 1.0 L Venous Blood Potassium 4.7 07/03/18 07/03/18 07/04/18 06:05 12:05 00:40 WBC RBC Hgb Hct MCV MCH MCHC RDW Plt Count MPV Neut % (Auto) Lymph % (Auto) [place] % (Auto) Eos % (Auto) Baso % (Auto) Lymph # (Auto) [place] # (Auto) Eos # (Auto) Baso # (Auto) Absolute Neuts (auto) pO2 VBG pH VBG pCO2 VBG HCO3 VBG Total CO2 VBG O2 Sat (Calc) VBG Base Excess VBG Potassium Sodium 141 141 Chloride 93 L 94 L Glucose Lactate FiO2 Potassium 4.7 4.2 Carbon Dioxide 31 32 Anion Gap 22 H 20 BUN 137 H* 127 H* Creatinine 8.8 H* 8.3 H* Est GFR ( Amer) 8 8 Est GFR (Non-Af Amer) 6 7 Random Glucose 192 H 184 H Calcium 8.0 L 8.4 Phosphorus 3.2 Magnesium 2.1 Total Bilirubin 0.9 AST 114 H ALT 71 H Alkaline Phosphatase 82 Total Creatine Kinase 1422 H CK-MB (CK-2) 8.4 H CK-MB (CK-2) % 0.6 L Total Protein 6.9 Albumin 3.4 Globulin 3.5 Albumin/Globulin Ratio 1.0 L Venous Blood Potassium 07/04/18 00:40 WBC 4.4 L RBC 3.52 Hgb 10.8 L Hct 32.1 L MCV 91.2 MCH 30.7 MCHC 33.6 RDW 14.8 H Plt Count 130 MPV 9.8 Neut % (Auto) 75.0 H Lymph % (Auto) 8.5 L [place] % (Auto) 15.8 H Eos % (Auto) 0.0 L Baso % (Auto) 0.7 Lymph # (Auto) 0.4 L [place] # (Auto) 0.7 H Eos # (Auto) 0.0 Baso # (Auto) 0.03 Absolute Neuts (auto) 3.27 pO2 VBG pH VBG pCO2 VBG HCO3 VBG Total CO2 VBG O2 Sat (Calc) VBG Base Excess VBG Potassium Sodium Chloride Glucose Lactate FiO2 Potassium Carbon Dioxide Anion Gap BUN Creatinine Est GFR ( Amer) Est GFR (Non-Af Amer) Random Glucose Calcium Phosphorus Magnesium Total Bilirubin AST ALT Alkaline Phosphatase Total Creatine Kinase CK-MB (CK-2) CK-MB (CK-2) % Total Protein Albumin Globulin Albumin/Globulin Ratio Venous Blood Potassium Assessment & Plan - Assessment and Plan (Free Text) Assessment: 52M presents to hospital after being found down, found to have rhabdomyolysis, SETH and a parastomal hernia with was incarcerated as seen on CT scan (improving), crohns flare Plan: - advance diet as tolerated - paint skin on hernia with betadine - monitor for ostomy output Further recs discuss with Dr. Naif Christensen, PGY3
[2018-07-04 05:27] LABS: ARTERIAL BLOOD GAS HCO3 31.9 mmol/L (21-28); ARTERIAL BLOOD GAS HEMOGLOBIN 10.5 g/dL (11.7-17.4); ARTERIAL BLOOD GAS O2 CAPACITY 14.5 mL/dl (16-24); ARTERIAL BLOOD GAS O2 CONTENT 13.6 ML/dl (15-23); ARTERIAL BLOOD GAS O2 SAT 94.1 % (95-98); ARTERIAL BLOOD GAS PCO2 40 mm/Hg (35-45); ARTERIAL BLOOD GAS PH 7.51 (7.35-7.45); ARTERIAL BLOOD GAS TCO2 33.1 mmol.L (22-28)
--- NOTE | 2018-07-04 08:52 | CP.PCM.PN ---
<Rhett Shook - Last Filed: 07/04/18 08:48> Subjective - Date & Time of Evaluation Date of Evaluation: 07/04/18 Time of Evaluation: 07:15 - Subjective Subjective: General Surgery Pt Seen and examined. States pain is resolved. No nausea or vomiting and tolerating liquids. No output from ostomy in the last 2 days. Redness over h ernia is improved. Objective - Vital Signs/Intake and Output Vital Signs (last 24 hours): Temp Pulse Resp BP Pulse Ox 97.9 F 61 12 145/72 93 L 07/04/18 06:16 07/04/18 06:16 07/04/18 06:14 07/04/18 06:15 07/04/18 06:16 Intake and Output: 07/04/18 07/04/18 06:59 18:59 Intake Total 2200 Output Total 2500 Balance -300 - Medications Medications: Current Medications Famotidine (Pepcid) 20 mg IVP DAILY [facility] Last Admin: 07/03/18 10:00 Dose: 20 mg Piperacillin Sod/Tazobactam Sod (Zosyn 3.375 In Ns 100ml) 100 mls @ 25 mls/hr IVPB Q12 [facility]; Protocol Stop: 07/11/18 10:01 Last Admin: 07/03/18 22:33 Dose: 25 mls/hr Sodium Bicarbonate 100 meq/ (Dextrose) 1,100 mls @ 150 mls/hr IV .Q7H20M [facility] Last Admin: 07/03/18 22:34 Dose: 150 mls/hr Methylprednisolone (Solu-Medrol) 60 mg IVP Q12 [facility] Stop: 07/04/18 16:22 Last Admin: 07/03/18 22:35 Dose: 60 mg Morphine Sulfate (Morphine) 2 mg IVP Q4H PRN PRN Reason: Pain, severe (8-10) Last Admin: 07/04/18 02:35 Dose: 2 mg - Labs Labs: 07/04/18 00:40 07/04/18 00:40 PT 18.2 SECONDS (9.4-12.5) H 07/01/18 08:50 INR 1.61 07/01/18 08:50 APTT 52.2 Seconds (26.9-38.3) H 07/01/18 08:50 - Constitutional Appears: Non-toxic, No Acute Distress - Head Exam Head Exam: ATRAUMATIC, NORMOCEPHALIC - Eye Exam Eye Exam: EOMI. absent: Scleral icterus - Respiratory Exam Respiratory Exam: NORMAL BREATHING PATTERN. absent: Respiratory Distress - GI/Abdominal Exam GI & Abdominal Exam: Distended (mild), Soft. absent: Firm, Guarding, Rigid, Tenderness, Rebound Additional comments: ostomy in place L side non reducible ventral hernia with improving erythema overlying the site. area is not tender to plapation. Large midline scar - Extremities Exam Extremities Exam: Normal Capillary Refill. absent: Calf Tenderness - Back Exam Back Exam: absent: CVA tenderness (L), CVA tenderness (R) - Neurological Exam Neurological Exam: Alert, Awake, Oriented x3 - Skin Skin Exam: Dry, Warm Assessment and Plan - Assessment and Plan (Free Text) Assessment: 52M with incarcerated ventral hernia, crohns disease, Susac syndrome Plan: Continue IVF per Nephro, Cr slowly improving F/U myoglobin level Abx per Medical team Monitor for Bowel function No plan for immediate surgery unless acutely worsening. There is concern that this could be a crohn's flare and he may be forming a EC fistula. Pt is improving overall. D/W Dr. Bipin Shook PGY4 <Navid Voss - Last Filed: 07/04/18 09:29> Objective - Vital Signs/Intake and Output Vital Signs (last 24 hours): Temp Pulse Resp BP Pulse Ox 97.9 F 61 12 145/72 93 L 07/04/18 06:16 07/04/18 06:16 07/04/18 06:14 07/04/18 06:15 07/04/18 06:16 Intake and Output: 07/04/18 07/04/18 06:59 18:59 Intake Total 2200 Output Total 2500 Balance -300 - Medications Medications: Current Medications Famotidine (Pepcid) 20 mg IVP DAILY [facility] Last Admin: 07/03/18 10:00 Dose: 20 mg Piperacillin Sod/Tazobactam Sod (Zosyn 3.375 In Ns 100ml) 100 mls @ 25 mls/hr IVPB Q12 [facility]; Protocol Stop: 07/11/18 10:01 Last Admin: 07/03/18 22:33 Dose: 25 mls/hr Sodium Bicarbonate 100 meq/ (Dextrose) 1,100 mls @ 150 mls/hr IV .Q7H20M [facility] Last Admin: 07/03/18 22:34 Dose: 150 mls/hr Methylprednisolone (Solu-Medrol) 60 mg IVP Q12 [facility] Stop: 07/04/18 16:22 Last Admin: 07/03/18 22:35 Dose: 60 mg Morphine Sulfate (Morphine) 2 mg IVP Q4H PRN PRN Reason: Pain, severe (8-10) Last Admin: 07/04/18 02:35 Dose: 2 mg - Labs Labs: 07/04/18 00:40 07/04/18 00:40 PT 18.2 SECONDS (9.4-12.5) H 07/01/18 08:50 INR 1.61 07/01/18 08:50 APTT 52.2 Seconds (26.9-38.3) H 07/01/18 08:50 Assessment and Plan - Assessment and Plan (Free Text) Assessment: Pt w/ parastomal hernia/SBO/abd wall cellulitis in remission. Fleet enema through the colostomy. Stool softeners. Advance to high fiber diet No acute surgical issues Will f/u
--- NOTE | 2018-07-04 09:17 | CP.PCM.PN ---
<TyrelRoger Moses - Last Filed: 07/04/18 09:14> Subjective - Date & Time of Evaluation Date of Evaluation: 07/03/18 Time of Evaluation: 09:14 - Subjective Subjective: Medicine and Heme/onc progress note - Tyrel PGY - 2 Patient seen and examined at bedside. Patient was agitated overnight and had a rough night with regards to mental health status. Patient currently voicing that he is not happy most days and that he has grown tired of his health conditions. No current expression of SI or HI. Denies any new symptoms; is tolerating CLD well. Was febrile at 100.4 overnight Objective - Vital Signs/Intake and Output Vital Signs (last 24 hours): Temp Pulse Resp BP Pulse Ox 97.9 F 61 12 145/72 93 L 07/04/18 06:16 07/04/18 06:16 07/04/18 06:14 07/04/18 06:15 07/04/18 06:16 Intake and Output: 07/04/18 07/04/18 06:59 18:59 Intake Total 2200 Output Total 2500 Balance -300 - Medications Medications: Current Medications Famotidine (Pepcid) 20 mg IVP DAILY [facility] Last Admin: 07/03/18 10:00 Dose: 20 mg Piperacillin Sod/Tazobactam Sod (Zosyn 3.375 In Ns 100ml) 100 mls @ 25 mls/hr IVPB Q12 [facility]; Protocol Stop: 07/11/18 10:01 Last Admin: 07/03/18 22:33 Dose: 25 mls/hr Sodium Bicarbonate 100 meq/ (Dextrose) 1,100 mls @ 150 mls/hr IV .Q7H20M [facility] Last Admin: 07/03/18 22:34 Dose: 150 mls/hr Methylprednisolone (Solu-Medrol) 60 mg IVP Q12 [facility] Stop: 07/04/18 16:22 Last Admin: 07/03/18 22:35 Dose: 60 mg Morphine Sulfate (Morphine) 2 mg IVP Q4H PRN PRN Reason: Pain, severe (8-10) Last Admin: 07/04/18 02:35 Dose: 2 mg - Labs Labs: 07/04/18 00:40 07/04/18 00:40 PT 18.2 SECONDS (9.4-12.5) H 07/01/18 08:50 INR 1.61 07/01/18 08:50 APTT 52.2 Seconds (26.9-38.3) H 07/01/18 08:50 - Constitutional Appears: Well - Head Exam Head Exam: ATRAUMATIC, NORMAL INSPECTION, NORMOCEPHALIC - Eye Exam Eye Exam: EOMI, Normal appearance, PERRL Pupil Exam: NORMAL ACCOMODATION, PERRL - ENT Exam ENT Exam: Mucous Membranes Moist, Normal Exam - Neck Exam Neck Exam: Full ROM, Normal Inspection. absent: Lymphadenopathy - Respiratory Exam Respiratory Exam: Clear to Ausculation Bilateral, NORMAL BREATHING PATTERN - Cardiovascular Exam Cardiovascular Exam: REGULAR RHYTHM, +S1, +S2. absent: Murmur - GI/Abdominal Exam GI & Abdominal Exam: Soft, Normal Bowel Sounds. absent: Tenderness Additional comments: Left sided ventral hernia; less distended than described in previous notes. - Extremities Exam Extremities Exam: Full ROM, Normal Capillary Refill, Normal Inspection. absent: Joint Swelling, Pedal Edema - Back Exam Back Exam: NORMAL INSPECTION - Neurological Exam Neurological Exam: Alert, Awake, CN II-XII Intact, Normal Gait, Oriented x3 - Psychiatric Exam Psychiatric exam: Normal Affect, Normal Mood - Skin Skin Exam: Dry, Intact, Normal Color, Warm Assessment and Plan - Assessment and Plan (Free Text) Assessment: 52 M with pertinent history of Susac and Crohn's under ICU management for severe rhabdomyolysis and SETH. Patient has a colostomy bag from active colitis and has not been able to have a reversal. With regards to his active assessments, patient's SETH is likely 2/2 ATN from rhabdomyolysis. Rhabdo is improving, but Cr is still in the 9s. Per discussion with implementation project manager Dr. Rice, the ATN will take some time to resolve. Patient's I/O are improving. With respect to sepsis, patient was febrile overnight; one tube of blood shows coag neg staph ylococcus. We will watch patient closely. Plan - Continue with IVF - Continue with sodium bicarb for acidosis - Continue with Zosyn for sepsis - Continue steroids, solu-medrol - Continue with pepcid for GI ppx <Levi López - Last Filed: 07/05/18 16:13> Objective - Vital Signs/Intake and Output Vital Signs (last 24 hours): Temp Pulse Resp BP Pulse Ox 97.9 F 78 23 185/98 H 96 07/05/18 08:00 07/05/18 13:40 07/05/18 13:40 07/05/18 11:41 07/05/18 13:40 Intake and Output: 07/05/18 07/05/18 06:59 18:59 Intake Total 1835 550 Output Total 3530 700 Balance -1695 -150 - Medications Medications: Current Medications Amlodipine Besylate (Norvasc) 10 mg PO DAILY [facility] Last Admin: 07/05/18 09:57 Dose: 10 mg Famotidine (Pepcid) 20 mg PO 1000,2200 [facility] Last Admin: 07/05/18 09:56 Dose: 20 mg Hydralazine HCl (Apresoline) 10 mg PO QID PRN PRN Reason: For SBP>160 Piperacillin Sod/Tazobactam Sod (Zosyn 3.375 In Ns 100ml) 100 mls @ 25 mls/hr IVPB Q12 [facility]; Protocol Stop: 07/11/18 10:01 Last Admin: 07/05/18 09:57 Dose: 25 mls/hr Morphine Sulfate (Morphine) 2 mg IVP Q4H PRN PRN Reason: Pain, severe (8-10) Last Admin: 07/05/18 02:30 Dose: 2 mg Zaleplon (Sonata) 5 mg PO HS PRN PRN Reason: Insomnia Last Admin: 07/04/18 23:20 Dose: 5 mg - Labs Labs: 07/05/18 06:00 07/05/18 06:00 PT 18.2 SECONDS (9.4-12.5) H 07/01/18 08:50 INR 1.61 07/01/18 08:50 APTT 52.2 Seconds (26.9-38.3) H 07/01/18 08:50 Attending/Attestation - Attestation I have personally seen and examined this patient.: Yes I have fully participated in the care of the patient.: Yes I have reviewed all pertinent clinical information, including history, physical exam and plan: Yes
--- NOTE | 2018-07-04 09:19 | CP.CCUPN ---
<Lennox Pineda - Last Filed: 07/04/18 10:44> CCU Subjective - Physician Review Subjective (Free Text): Lennox Pineda PGY-1 Critical Care Progress Note Patient seen and evaluated at bedside. Afebrile overnight with episodes of agitation, for which Ativan was given. Given mineral fleet enema yesterday by surgery. Currently resting comfortably in bedside chair in no acute distress with nasal cannula. Patient frustrated that he can not eat more substantial food. Patient reports abdominal pain is currently controlled. Denies chest pain, palpitations, shortness of breath, leg pain. CCU Objective - Vital Signs / Intake & Output Vital Signs (Last 4 hours): Vital Signs Temp Pulse Resp BP Pulse Ox 07/04/18 06:16 97.9 F 61 93 L 07/04/18 06:15 145/72 07/04/18 06:14 97.9 F 63 12 94 L 07/04/18 06:10 69 22 91 L 07/04/18 06:00 66 11 L 89 L 07/04/18 05:50 97.7 F 73 89 L 07/04/18 05:44 97.7 F 66 88 L 07/04/18 05:40 97.7 F 66 9 L 89 L 07/04/18 05:33 97.7 F 76 92 L 07/04/18 05:30 97.7 F 72 21 93 L 07/04/18 05:20 97.7 F 72 10 L 88 L Intake and Output (Last 8hrs): Intake & Output 07/03/18 07/04/18 07/04/18 22:59 06:59 14:59 Intake Total 2750 2200 Output Total 2750 2500 Balance 0 -300 Intake: IV 2100 1900 ANTIBIOTIC 300 Left Forearm 100 Left Upper arm 1800 1800 Oral 650 300 Output: Urine 2750 2500 Urethral (Estrada) 2750 2500 Emesis 0 Oral Regurgitation 0 Other 0 Other: # Bowel Movements 0 0 - Physical Exam Head: Positive for: Atraumatic, Normocephalic Pupils: Positive for: PERRL Extroacular Muscles: Positive for: EOMI Conjunctiva: Positive for: Normal Mouth: Positive for: Dry Neck: Positive for: Normal Range of Motion Respiratory/Chest: Positive for: Clear to Auscultation, Decreased Breath Sounds. Negative for: Respiratory Distress, Accessory Muscle Use, Wheezes, Rales, Rhonchi Cardiovascular: Positive for: Regular Rate and Rhythm, Normal S1, S2. Negative for: Murmurs Abdomen: Positive for: Other (Colostomy to left lower quadrant, mildly tender L sided non reducible ventral hernia with improved erythema overlying the site.). Negative for: Tenderness, Distention, Normal Bowel Sounds (hypoactive but present), Peritoneal Signs, Rebound, Guarding, [place]Bur[place]'s Point Tender Back: Positive for: Normal Inspection Upper Extremity: Positive for: Normal Inspection. Negative for: Cyanosis, Edema Lower Extremity: Positive for: Normal Inspection. Negative for: Edema Neurological: Positive for: GCS=15, Speech Normal, Other (Hard of hearing) Skin: Positive for: Warm, Dry, Normal Color. Negative for: Rashes Psychiatric: Positive for: Alert, Normal Insight, Normal Concentration, Depressed Mood. Negative for: Oriented x 3 (Oriented x 2 ) - Medications Active Medications: Active Medications Generic Name Dose Route Start Last Admin Trade Name Freq PRN Reason Stop Dose Admin Famotidine 20 mg 07/01/18 13:15 07/03/18 10:00 Pepcid IVP 20 mg DAILY SANTINO Administration Piperacillin Sod/Tazobactam Sod 100 mls @ 25 mls/hr 07/02/18 10:00 07/03/18 22:33 Zosyn 3.375 In Ns 100ml IVPB 07/11/18 10:01 25 mls/hr Q12 SANTINO Administration Protocol Sodium Bicarbonate 100 meq/ 1,100 mls @ 150 mls/hr 07/01/18 23:45 07/03/18 22:34 Dextrose IV 150 mls/hr .[id number] SANTINO Administration Methylprednisolone 60 mg 07/02/18 16:21 07/03/18 22:35 Solu-Medrol IVP 07/04/18 16:22 60 mg Q12 SANTINO Administration Morphine Sulfate 2 mg 07/01/18 15:48 07/04/18 02:35 Morphine IVP 2 mg Q4H PRN Administration Pain, severe (8-10) - Patient Studies Lab Studies: Microbiology Studies 07/01/18 09:10 Blood Culture - Preliminary Blood NO GROWTH AFTER 3 DAYS 07/01/18 08:50 S.aureus & Coag-Neg Staph PNA FISH - Final Blood Blood Culture - Final Coagulase Neg Staphylococcus Gram Stain - Final 07/02/18 15:00 Blood Culture - Preliminary Blood NO GROWTH AFTER 24 HOURS 07/02/18 14:30 Blood Culture - Preliminary Blood NO GROWTH AFTER 24 HOURS 07/01/18 18:40 Urine Culture - Preliminary Urine Random No growth. Lab Studies 07/04/18 07/04/18 07/04/18 Range/Units 05:20 00:40 00:40 WBC 4.4 L (4.5-11.0) 10^3/uL RBC 3.52 (3.5-6.1) 10^6/uL Hgb 10.8 L (14.0-18.0) g/dL Hct 32.1 L (42.0-52.0) % MCV 91.2 (80.0-105.0) fl MCH 30.7 (25.0-35.0) pg MCHC 33.6 (31.0-37.0) g/dl RDW 14.8 H (11.5-14.5) % Plt Count 130 (120.0-450.0) 10^3/uL MPV 9.8 (7.0-11.0) fl Neut % (Auto) 75.0 H (50.0-68.0) % Lymph % (Auto) 8.5 L (22.0-35.0) % [place] % (Auto) 15.8 H (1.0-6.0) % Eos % (Auto) 0.0 L (1.5-5.0) % Baso % (Auto) 0.7 (0.0-3.0) % Lymph # (Auto) 0.4 L (1.2-3.4) [place] # (Auto) 0.7 H (0.1-0.6) Eos # (Auto) 0.0 (0.0-0.7) Baso # (Auto) 0.03 (0.0-2.0) K/mm3 Absolute Neuts (auto) 3.27 (1.4-6.5) pCO2 40 (35-45) mm/Hg pO2 60.0 L (80-100) mm/Hg HCO3 31.9 H (21-28) mmol/L ABG pH 7.51 H (7.35-7.45) ABG Total CO2 33.1 H (22-28) mmol.L ABG O2 Saturation 94.1 L (95-98) % ABG O2 Content 13.6 L (15-23) ML/dl ABG Base Excess 8.2 H (-2.0-3.0) mmol/L ABG Hemoglobin 10.5 L (11.7-17.4) g/dL ABG Carboxyhemoglobin 1.9 H (0.5-1.5) % POC ABG HHb (Measured) 5.7 H (0-5) % ABG Methemoglobin 0.7 (0.0-3.0) % ABG O2 Capacity 14.5 L (16-24) mL/dl Hgb O2 Saturation 91.7 L (95.0-98.0) % FiO2 32.0 % Sodium 141 (132-148) mmol/L Potassium 4.2 (3.6-5.0) mmol/L Chloride 94 L (98-107) mmol/L Carbon Dioxide 32 (21-33) mmol/L Anion Gap 20 (10-20) BUN 127 H* (7-21) mg/dL Creatinine 8.3 H* (0.8-1.5) mg/dl Est GFR ( Amer) 8 Est GFR (Non-Af Amer) 7 Random Glucose 184 H (70-110) mg/dL Calcium 8.4 (8.4-10.5) mg/dL Phosphorus 3.2 (2.5-4.5) mg/dL Magnesium 2.1 (1.7-2.2) mg/dL Total Bilirubin 0.9 (0.2-1.3) mg/dL AST 114 H (17-59) U/L ALT 71 H (7-56) U/L Alkaline Phosphatase 82 (38-126) U/L Total Protein 6.9 (5.8-8.3) g/dL Albumin 3.4 (3.0-4.8) g/dL Globulin 3.5 gm/dL Albumin/Globulin Ratio 1.0 L (1.1-1.8) 07/03/18 Range/Units 12:05 WBC (4.5-11.0) 10^3/uL RBC (3.5-6.1) 10^6/uL Hgb (14.0-18.0) g/dL Hct (42.0-52.0) % MCV (80.0-105.0) fl MCH (25.0-35.0) pg MCHC (31.0-37.0) g/dl RDW (11.5-14.5) % Plt Count (120.0-450.0) 10^3/uL MPV (7.0-11.0) fl Neut % (Auto) (50.0-68.0) % Lymph % (Auto) (22.0-35.0) % [place] % (Auto) (1.0-6.0) % Eos % (Auto) (1.5-5.0) % Baso % (Auto) (0.0-3.0) % Lymph # (Auto) (1.2-3.4) [place] # (Auto) (0.1-0.6) Eos # (Auto) (0.0-0.7) Baso # (Auto) (0.0-2.0) K/mm3 Absolute Neuts (auto) (1.4-6.5) pCO2 (35-45) mm/Hg pO2 (80-100) mm/Hg HCO3 (21-28) mmol/L ABG pH (7.35-7.45) ABG Total CO2 (22-28) mmol.L ABG O2 Saturation (95-98) % ABG O2 Content (15-23) ML/dl ABG Base Excess (-2.0-3.0) mmol/L ABG Hemoglobin (11.7-17.4) g/dL ABG Carboxyhemoglobin (0.5-1.5) % POC ABG HHb (Measured) (0-5) % ABG Methemoglobin (0.0-3.0) % ABG O2 Capacity (16-24) mL/dl Hgb O2 Saturation (95.0-98.0) % FiO2 % Sodium 141 (132-148) mmol/L Potassium 4.7 (3.6-5.0) mmol/L Chloride 93 L (98-107) mmol/L Carbon Dioxide 31 (21-33) mmol/L Anion Gap 22 H (10-20) BUN 137 H* (7-21) mg/dL Creatinine 8.8 H* (0.8-1.5) mg/dl Est GFR ( Amer) 8 Est GFR (Non-Af Amer) 6 Random Glucose 192 H (70-110) mg/dL Calcium 8.0 L (8.4-10.5) mg/dL Phosphorus (2.5-4.5) mg/dL Magnesium (1.7-2.2) mg/dL Total Bilirubin (0.2-1.3) mg/dL AST (17-59) U/L ALT (7-56) U/L Alkaline Phosphatase (38-126) U/L Total Protein (5.8-8.3) g/dL Albumin (3.0-4.8) g/dL Globulin gm/dL Albumin/Globulin Ratio (1.1-1.8) Laboratory Results - last 24 hr 07/03/18 07/04/18 07/04/18 12:05 00:40 00:40 WBC 4.4 L RBC 3.52 Hgb 10.8 L Hct 32.1 L MCV 91.2 MCH 30.7 MCHC 33.6 RDW 14.8 H Plt Count 130 MPV 9.8 Neut % (Auto) 75.0 H Lymph % (Auto) 8.5 L [place] % (Auto) 15.8 H Eos % (Auto) 0.0 L Baso % (Auto) 0.7 Lymph # (Auto) 0.4 L [place] # (Auto) 0.7 H Eos # (Auto) 0.0 Baso # (Auto) 0.03 Absolute Neuts (auto) 3.27 pCO2 pO2 HCO3 ABG pH ABG Total CO2 ABG O2 Saturation ABG O2 Content ABG Base Excess ABG Hemoglobin ABG Carboxyhemoglobin POC ABG HHb (Measured) ABG Methemoglobin ABG O2 Capacity Hgb O2 Saturation FiO2 Sodium 141 141 Potassium 4.7 4.2 Chloride 93 L 94 L Carbon Dioxide 31 32 Anion Gap 22 H 20 BUN 137 H* 127 H* Creatinine 8.8 H* 8.3 H* Est GFR ( Amer) 8 8 Est GFR (Non-Af Amer) 6 7 Random Glucose 192 H 184 H Calcium 8.0 L 8.4 Phosphorus 3.2 Magnesium 2.1 Total Bilirubin 0.9 AST 114 H ALT 71 H Alkaline Phosphatase 82 Total Protein 6.9 Albumin 3.4 Globulin 3.5 Albumin/Globulin Ratio 1.0 L 07/04/18 05:20 WBC RBC Hgb Hct MCV MCH MCHC RDW Plt Count MPV Neut % (Auto) Lymph % (Auto) [place] % (Auto) Eos % (Auto) Baso % (Auto) Lymph # (Auto) [place] # (Auto) Eos # (Auto) Baso # (Auto) Absolute Neuts (auto) pCO2 40 pO2 60.0 L HCO3 31.9 H ABG pH 7.51 H ABG Total CO2 33.1 H ABG O2 Saturation 94.1 L ABG O2 Content 13.6 L ABG Base Excess 8.2 H ABG Hemoglobin 10.5 L ABG Carboxyhemoglobin 1.9 H POC ABG HHb (Measured) 5.7 H ABG Methemoglobin 0.7 ABG O2 Capacity 14.5 L Hgb O2 Saturation 91.7 L FiO2 32.0 Sodium Potassium Chloride Carbon Dioxide Anion Gap BUN Creatinine Est GFR ( Amer) Est GFR (Non-Af Amer) Random Glucose Calcium Phosphorus Magnesium Total Bilirubin AST ALT Alkaline Phosphatase Total Protein Albumin Globulin Albumin/Globulin Ratio Fingerstick Blood Sugar Results: 125 Review of Systems - Review of Systems Review of Systems: 12 point ROS completed and negative except as described in HPI. Critical Care Progress Note - Nutrition Nutrition: Nutrition Category Date Time Status Liquid Diet [DIET] Diets 07/03/18 Lunch Ordered Assessment/Plan - Assessment and Plan (Free Text) Assessment: 52 year old male with past medical history of crohn's disease s/p colostomy, Susac syndrome, psoriasis, cerebral vasculitis with bilateral hearing loss, depression who presents in acute renal failure and sepsis 2/2 bowel obstruction. Neuro: -AAOx3, no FND, moving extremities past midline. -Monitor neuro status. -Reorient patient as necessary. Cardio: -RRR, normotensive, no signs of HD compromise -07/01 echo shows EF 55-60%, mild TR -Maintain MAP>65. -Monitor for S/S, HD compromise. Pulm: -No signs of respiratory distress. CTA B/L -Maintain O2 saturation >90%. -O2 NC PRN -aspiration precautions, fall precautions -CXR 07/01/18 neg -Elevate bed to 30 degrees GI: 07/01/18 CT abd/pel: incarcerated ventral hernia with partial SBO adjacent to colostomy. -tolerating CLD -C/w High dose Steroids and Flagyl per surgery/GI, possible Crohn's flare -Protonix -Pain control with Morphine -Dr. Hope on consult -Gen Surg on consult- Dr. Voss- no acute plan for OR at this time, possible Crohn's flare /Nephro: -Acute renal failure, Cr 8.3 improving, f/u BMP q8h -Improving hyperkalemia, remains normal this AM -Nephro on consult- Dr. Rice -Contraction alkalosis on ABG and CMP 2/2 fluid rescucitation, discontinue bicarb drip -Start NS @ 100 cc/hr -Estrada in place, 5 L out yesterday -Repeat CK continues to decrease -Continue monitoring -Daily weights, Strict Is and Os -Replete electrolytes as needed. -Maintain euvolemia. Endocrinology: -Random glucose: 180 -Maintain euglycemia. Heme/Onc: -H/H stable -No signs of HD compromise. -Dr. 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 Psych: -Frustrated and agitated about constant hospitalizations -Ativan given overnight -no SI/HI endorsed -Psych consult placed, f/u recs -Family to bring in list of psych meds DVT prophylaxis: SCDs GI ppx: Pepcid Patient seen, case reviewed and plan approved by Dr. Dunaway. Lennox Pineda, PGY-1 <Ahmet Dunaway - Last Filed: 07/04/18 16:16> CCU Objective - Vital Signs / Intake & Output Intake and Output (Last 8hrs): Intake & Output 07/04/18 07/04/18 07/04/18 06:59 14:59 22:59 Intake Total 2200 Output Total 2500 Balance -300 Intake: IV 1900 Left Forearm 100 Left Upper arm 1800 Oral 300 Output: Urine 2500 Urethral (Estrada) 2500 Emesis 0 Oral Regurgitation 0 Other 0 Other: # Bowel Movements 0 - Medications Active Medications: Active Medications Generic Name Dose Route Start Last Admin Trade Name Freq PRN Reason Stop Dose Admin Famotidine 20 mg 07/01/18 13:15 07/04/18 09:36 Pepcid IVP 20 mg DAILY SANTINO Administration Piperacillin Sod/Tazobactam Sod 100 mls @ 25 mls/hr 07/02/18 10:00 07/04/18 09:36 Zosyn 3.375 In Ns 100ml IVPB 07/11/18 10:01 25 mls/hr Q12 SANTINO Administration Protocol Sodium Chloride 1,000 mls @ 100 mls/hr 07/04/18 10:00 Sodium Chloride 0.9% IV .Q10H SANTINO Methylprednisolone 60 mg 07/02/18 16:21 07/04/18 09:36 Solu-Medrol IVP 07/04/18 16:22 60 mg Q12 SANTINO Administration Morphine Sulfate 2 mg 07/01/18 15:48 07/04/18 02:35 Morphine IVP 2 mg Q4H PRN Administration Pain, severe (8-10) Zaleplon 5 mg 07/04/18 15:14 Sonata PO HS PRN Insomnia - Patient Studies Lab Studies: Microbiology Studies 07/02/18 15:00 Blood Culture - Preliminary Blood NO GROWTH AFTER 48 HOURS 07/02/18 14:30 Blood Culture - Preliminary Blood NO GROWTH AFTER 48 HOURS 07/01/18 18:40 Urine Culture - Final Urine Random No Growth (<1,000 CFU/ML) 07/01/18 09:10 Blood Culture - Preliminary Blood NO GROWTH AFTER 3 DAYS 07/01/18 08:50 S.aureus & Coag-Neg Staph PNA FISH - Final Blood Blood Culture - Final Coagulase Neg Staphylococcus Gram Stain - Final Lab Studies 07/04/18 07/04/18 07/04/18 Range/Units 11:40 05:20 00:40 WBC 4.4 L (4.5-11.0) 10^3/uL RBC 3.52 (3.5-6.1) 10^6/uL Hgb 10.8 L (14.0-18.0) g/dL Hct 32.1 L (42.0-52.0) % MCV 91.2 (80.0-105.0) fl MCH 30.7 (25.0-35.0) pg MCHC 33.6 (31.0-37.0) g/dl RDW 14.8 H (11.5-14.5) % Plt Count 130 (120.0-450.0) 10^3/uL MPV 9.8 (7.0-11.0) fl Neut % (Auto) 75.0 H (50.0-68.0) % Lymph % (Auto) 8.5 L (22.0-35.0) % [place] % (Auto) 15.8 H (1.0-6.0) % Eos % (Auto) 0.0 L (1.5-5.0) % Baso % (Auto) 0.7 (0.0-3.0) % Lymph # (Auto) 0.4 L (1.2-3.4) [place] # (Auto) 0.7 H (0.1-0.6) Eos # (Auto) 0.0 (0.0-0.7) Baso # (Auto) 0.03 (0.0-2.0) K/mm3 Absolute Neuts (auto) 3.27 (1.4-6.5) pCO2 40 (35-45) mm/Hg pO2 60.0 L (80-100) mm/Hg HCO3 31.9 H (21-28) mmol/L ABG pH 7.51 H (7.35-7.45) ABG Total CO2 33.1 H (22-28) mmol.L ABG O2 Saturation 94.1 L (95-98) % ABG O2 Content 13.6 L (15-23) ML/dl ABG Base Excess 8.2 H (-2.0-3.0) mmol/L ABG Hemoglobin 10.5 L (11.7-17.4) g/dL ABG Carboxyhemoglobin 1.9 H (0.5-1.5) % POC ABG HHb (Measured) 5.7 H (0-5) % ABG Methemoglobin 0.7 (0.0-3.0) % ABG O2 Capacity 14.5 L (16-24) mL/dl Hgb O2 Saturation 91.7 L (95.0-98.0) % FiO2 32.0 % Sodium 139 (132-148) mmol/L Potassium 4.7 (3.6-5.0) mmol/L Chloride 95 L (98-107) mmol/L Carbon Dioxide 30 (21-33) mmol/L Anion Gap 19 (10-20) BUN 124 H* (7-21) mg/dL Creatinine 7.0 H (0.8-1.5) mg/dl Est GFR ( Amer) 10 Est GFR (Non-Af Amer) 8 Random Glucose 210 H (70-110) mg/dL Calcium 8.7 (8.4-10.5) mg/dL Phosphorus (2.5-4.5) mg/dL Magnesium (1.7-2.2) mg/dL Total Bilirubin (0.2-1.3) mg/dL AST (17-59) U/L ALT (7-56) U/L Alkaline Phosphatase (38-126) U/L Total Creatine Kinase 833 H (35-230) U/L CK-MB (CK-2) 4.2 H (0.0-3.6) ng/mL CK-MB (CK-2) % Cancelled Myoglobin (<=95) mcg/L Total Protein (5.8-8.3) g/dL Albumin (3.0-4.8) g/dL Globulin gm/dL Albumin/Globulin Ratio (1.1-1.8) 07/04/18 07/01/18 Range/Units 00:40 18:20 WBC (4.5-11.0) 10^3/uL RBC (3.5-6.1) 10^6/uL Hgb (14.0-18.0) g/dL Hct (42.0-52.0) % MCV (80.0-105.0) fl MCH (25.0-35.0) pg MCHC (31.0-37.0) g/dl RDW (11.5-14.5) % Plt Count (120.0-450.0) 10^3/uL MPV (7.0-11.0) fl Neut % (Auto) (50.0-68.0) % Lymph % (Auto) (22.0-35.0) % [place] % (Auto) (1.0-6.0) % Eos % (Auto) (1.5-5.0) % Baso % (Auto) (0.0-3.0) % Lymph # (Auto) (1.2-3.4) [place] # (Auto) (0.1-0.6) Eos # (Auto) (0.0-0.7) Baso # (Auto) (0.0-2.0) K/mm3 Absolute Neuts (auto) (1.4-6.5) pCO2 (35-45) mm/Hg pO2 (80-100) mm/Hg HCO3 (21-28) mmol/L ABG pH (7.35-7.45) ABG Total CO2 (22-28) mmol.L ABG O2 Saturation (95-98) % ABG O2 Content (15-23) ML/dl ABG Base Excess (-2.0-3.0) mmol/L ABG Hemoglobin (11.7-17.4) g/dL ABG Carboxyhemoglobin (0.5-1.5) % POC ABG HHb (Measured) (0-5) % ABG Methemoglobin (0.0-3.0) % ABG O2 Capacity (16-24) mL/dl Hgb O2 Saturation (95.0-98.0) % FiO2 % Sodium 141 (132-148) mmol/L Potassium 4.2 (3.6-5.0) mmol/L Chloride 94 L (98-107) mmol/L Carbon Dioxide 32 (21-33) mmol/L Anion Gap 20 (10-20) BUN 127 H* (7-21) mg/dL Creatinine 8.3 H* (0.8-1.5) mg/dl Est GFR ( Amer) 8 Est GFR (Non-Af Amer) 7 Random Glucose 184 H (70-110) mg/dL Calcium 8.4 (8.4-10.5) mg/dL Phosphorus 3.2 (2.5-4.5) mg/dL Magnesium 2.1 (1.7-2.2) mg/dL Total Bilirubin 0.9 (0.2-1.3) mg/dL AST 114 H (17-59) U/L ALT 71 H (7-56) U/L Alkaline Phosphatase 82 (38-126) U/L Total Creatine Kinase (35-230) U/L CK-MB (CK-2) (0.0-3.6) ng/mL CK-MB (CK-2) % Myoglobin >8750 H (<=95) mcg/L Total Protein 6.9 (5.8-8.3) g/dL Albumin 3.4 (3.0-4.8) g/dL Globulin 3.5 gm/dL Albumin/Globulin Ratio 1.0 L (1.1-1.8) Laboratory Results - last 24 hr 07/01/18 07/04/18 07/04/18 18:20 00:40 00:40 WBC 4.4 L RBC 3.52 Hgb 10.8 L Hct 32.1 L MCV 91.2 MCH 30.7 MCHC 33.6 RDW 14.8 H Plt Count 130 MPV 9.8 Neut % (Auto) 75.0 H Lymph % (Auto) 8.5 L [place] % (Auto) 15.8 H Eos % (Auto) 0.0 L Baso % (Auto) 0.7 Lymph # (Auto) 0.4 L [place] # (Auto) 0.7 H Eos # (Auto) 0.0 Baso # (Auto) 0.03 Absolute Neuts (auto) 3.27 pCO2 pO2 HCO3 ABG pH ABG Total CO2 ABG O2 Saturation ABG O2 Content ABG Base Excess ABG Hemoglobin ABG Carboxyhemoglobin POC ABG HHb (Measured) ABG Methemoglobin ABG O2 Capacity Hgb O2 Saturation FiO2 Sodium 141 Potassium 4.2 Chloride 94 L Carbon Dioxide 32 Anion Gap 20 BUN 127 H* Creatinine 8.3 H* Est GFR ( Amer) 8 Est GFR (Non-Af Amer) 7 Random Glucose 184 H Calcium 8.4 Phosphorus 3.2 Magnesium 2.1 Total Bilirubin 0.9 AST 114 H ALT 71 H Alkaline Phosphatase 82 Total Creatine Kinase CK-MB (CK-2) CK-MB (CK-2) % Myoglobin >8750 H Total Protein 6.9 Albumin 3.4 Globulin 3.5 Albumin/Globulin Ratio 1.0 L 07/04/18 07/04/18 05:20 11:40 WBC RBC Hgb Hct MCV MCH MCHC RDW Plt Count MPV Neut % (Auto) Lymph % (Auto) [place] % (Auto) Eos % (Auto) Baso % (Auto) Lymph # (Auto) [place] # (Auto) Eos # (Auto) Baso # (Auto) Absolute Neuts (auto) pCO2 40 pO2 60.0 L HCO3 31.9 H ABG pH 7.51 H ABG Total CO2 33.1 H ABG O2 Saturation 94.1 L ABG O2 Content 13.6 L ABG Base Excess 8.2 H ABG Hemoglobin 10.5 L ABG Carboxyhemoglobin 1.9 H POC ABG HHb (Measured) 5.7 H ABG Methemoglobin 0.7 ABG O2 Capacity 14.5 L Hgb O2 Saturation 91.7 L FiO2 32.0 Sodium 139 Potassium 4.7 Chloride 95 L Carbon Dioxide 30 Anion Gap 19 BUN 124 H* Creatinine 7.0 H Est GFR ( Amer) 10 Est GFR (Non-Af Amer) 8 Random Glucose 210 H Calcium 8.7 Phosphorus Magnesium Total Bilirubin AST ALT Alkaline Phosphatase Total Creatine Kinase 833 H CK-MB (CK-2) 4.2 H CK-MB (CK-2) % Cancelled Myoglobin Total Protein Albumin Globulin Albumin/Globulin Ratio Critical Care Progress Note - Nutrition Nutrition: Nutrition Category Date Time Status Liquid Diet [DIET] Diets 07/03/18 Lunch Ordered Assessment/Plan - Assessment and Plan (Free Text) Assessment: I saw and examined the patient on rounds with the resident, agree with note with following additions/exceptions: Patient is 52yo 5with PMHx of crohn's disease s/p colostomy, Susac syndrome, psoriasis, cerebral vasculitis with bilateral hearing loss, depression who presents in acute renal failure and sepsis 2/2 bowel obstruction. Pt currently afebrile, HD stable in NAD. Surgery following patient. Lactate normal Labs, imaging, chart reviewed. No plans for acute surgical intervention at this time. Renal function improving, no need for HD Good UOP repeat BCX negative SBO Crohns disease Psoriasis Vasculitis Recommend: - supp o2 as needed, duonebs PRN, IS, goal sat 90% - Zosyn renally dosed - follow up GI - follow up surgery - follow up ID - start feeds - DC bicarb drip - switch IVF to NS 75cc/hr - GI ppx - DVT ppx - Monitor in MICU
--- NOTE | 2018-07-04 09:30 | CP.PCM.CON ---
<Katelin Stoner - Last Filed: 07/04/18 10:11> History of Present Illness - History of Present Illness History of Present Illness: Podiatry Consult Note: Dr. Quijano 52M patient with PMHx of PMH of Crohn's disease, depression, Susac syndrome (autoimmune disorder), psoriasis, seen and examined at bedside; patient was admitted for generalized weakness. Patient resting comfortably in bedside chair and in NAD. He states that he is very depressed at this time. Patient is well known to Dr. Quijano/Ady in the past and was treated with 4-6 weeks of IV antibiotics for L 2nd digit OM. Patient states that he does not have any open wounds or lesions at this time and has not had a problem with his feet since he was last treated a year ago. He denies nausea/vomiting/fever. 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) Other/Comment: slight speech impediment - RENAL Hx Chronic Kidney Disease: No - ENDOCRINE/METABOLIC Hx Endocrine Disorders: No - HEMATOLOGICAL/ONCOLOGICAL Hx Blood Transfusions: No Hx Blood Transfusion Reaction: No - INTEGUMENTARY Hx Dermatological Problems: Yes Hx Psoriasis: Yes - MUSCULOSKELETAL/RHEUMATOLOGICAL Hx Falls: Yes (found on floor today) - GASTROINTESTINAL Hx Gastrointestinal Disorders: Yes Hx Colostomy: Yes Hx Crohn's Disease: Yes (dx at 15 yrs old) Other/Comment: colostomy - GENITOURINARY/GYNECOLOGICAL Hx Genitourinary Disorders: No - PSYCHIATRIC Hx Substance Use: No - SURGICAL HISTORY Other/Comment: colostomy bag. abdominal sx - ANESTHESIA Hx Anesthesia Reactions: No Hx Malignant Hyperthermia: No Meds Allergies/Adverse Reactions: Allergies Allergy/AdvReac Type Severity Reaction Status Date / Time homeopathic substance (from Allergy Intermediate RASH Uncoded 07/01/18 08:44 Rosario) [facility] SO[facility] Allergy RASH Uncoded 07/01/18 08:44 - Medications Medications: Current Medications Famotidine (Pepcid) 20 mg IVP DAILY [facility] Last Admin: 07/03/18 10:00 Dose: 20 mg Piperacillin Sod/Tazobactam Sod (Zosyn 3.375 In Ns 100ml) 100 mls @ 25 mls/hr IVPB Q12 [facility]; Protocol Stop: 07/11/18 10:01 Last Admin: 07/03/18 22:33 Dose: 25 mls/hr Sodium Bicarbonate 100 meq/ (Dextrose) 1,100 mls @ 150 mls/hr IV .Q7H20M [facility] Last Admin: 07/03/18 22:34 Dose: 150 mls/hr Methylprednisolone (Solu-Medrol) 60 mg IVP Q12 [facility] Stop: 07/04/18 16:22 Last Admin: 07/03/18 22:35 Dose: 60 mg Morphine Sulfate (Morphine) 2 mg IVP Q4H PRN PRN Reason: Pain, severe (8-10) Last Admin: 07/04/18 02:35 Dose: 2 mg Physical Exam - Constitutional Appears: Non-toxic, No Acute Distress - Head Exam Head Exam: ATRAUMATIC, NORMOCEPHALIC - Extremities Exam Additional comments: LLE focused exam: Vasc: DP pulse weakly palpable 1/4, PT pulses non-palpable. CFT > 3 seconds to all digits. Skin temperature warm to warm from proximal to distal. No edema appreciated Neuro: Sensation diminished Derm: Left 2nd digit callus formation, no open wounds, no open lesions, no erythema, no drainage, no tunneling, no tracking, no clinical signs of infection. Non-blanchable erythema appreciated to right heel at this time. Ortho: No tendermess to palpation, No other gross deformities noted - Neurological Exam Neurological exam: Alert, Oriented x3 - Psychiatric Exam Psychiatric exam: Normal Affect, Normal Mood - Skin Skin Exam: Warm Results - Vital Signs Recent Vital Signs: Last Vital Signs Temp 97.9 F 07/04/18 06:16 Pulse 61 07/04/18 06:16 Resp 12 07/04/18 06:14 BP 145/72 07/04/18 06:15 Pulse Ox 93 L 07/04/18 06:16 - Labs Result Diagrams: 07/04/18 00:40 07/04/18 00:40 Labs: Laboratory Results - last 24 hr 07/03/18 07/04/18 07/04/18 12:05 00:40 00:40 WBC 4.4 L RBC 3.52 Hgb 10.8 L Hct 32.1 L MCV 91.2 MCH 30.7 MCHC 33.6 RDW 14.8 H Plt Count 130 MPV 9.8 Neut % (Auto) 75.0 H Lymph % (Auto) 8.5 L Glynn % (Auto) 15.8 H Eos % (Auto) 0.0 L Baso % (Auto) 0.7 Lymph # (Auto) 0.4 L Glynn # (Auto) 0.7 H Eos # (Auto) 0.0 Baso # (Auto) 0.03 Absolute Neuts (auto) 3.27 pCO2 pO2 HCO3 ABG pH ABG Total CO2 ABG O2 Saturation ABG O2 Content ABG Base Excess ABG Hemoglobin ABG Carboxyhemoglobin POC ABG HHb (Measured) ABG Methemoglobin ABG O2 Capacity Hgb O2 Saturation FiO2 Sodium 141 141 Potassium 4.7 4.2 Chloride 93 L 94 L Carbon Dioxide 31 32 Anion Gap 22 H 20 BUN 137 H* 127 H* Creatinine 8.8 H* 8.3 H* Est GFR ( Amer) 8 8 Est GFR (Non-Af Amer) 6 7 Random Glucose 192 H 184 H Calcium 8.0 L 8.4 Phosphorus 3.2 Magnesium 2.1 Total Bilirubin 0.9 AST 114 H ALT 71 H Alkaline Phosphatase 82 Total Protein 6.9 Albumin 3.4 Globulin 3.5 Albumin/Globulin Ratio 1.0 L 07/04/18 05:20 WBC RBC Hgb Hct MCV MCH MCHC RDW Plt Count MPV Neut % (Auto) Lymph % (Auto) Glynn % (Auto) Eos % (Auto) Baso % (Auto) Lymph # (Auto) Glynn # (Auto) Eos # (Auto) Baso # (Auto) Absolute Neuts (auto) pCO2 40 pO2 60.0 L HCO3 31.9 H ABG pH 7.51 H ABG Total CO2 33.1 H ABG O2 Saturation 94.1 L ABG O2 Content 13.6 L ABG Base Excess 8.2 H ABG Hemoglobin 10.5 L ABG Carboxyhemoglobin 1.9 H POC ABG HHb (Measured) 5.7 H ABG Methemoglobin 0.7 ABG O2 Capacity 14.5 L Hgb O2 Saturation 91.7 L FiO2 32.0 Sodium Potassium Chloride Carbon Dioxide Anion Gap BUN Creatinine Est GFR ( Amer) Est GFR (Non-Af Amer) Random Glucose Calcium Phosphorus Magnesium Total Bilirubin AST ALT Alkaline Phosphatase Total Protein Albumin Globulin Albumin/Globulin Ratio Assessment & Plan - Assessment and Plan (Free Text) Assessment: 52M patient admitted for weakness Plan: Patient seen and examined at bedside with Dr. Quijano Afebrile, absent leukocytosis Multipodus boots ordered; to be worn at all times while in bed Optifoams to b/l heels Continue to monitor L 2nd digit, former diagnosis of OM to distal 2nd digit- patient treated with 4-6 weeks of IV abx Podiatry to sign off a this time, please reconsult as needed for any new pedal complaints Thank you for the consult - Date & Time Date: 07/04/18 Time: 09:29 <Serena Quijano - Last Filed: 07/10/18 20:00> Results - Vital Signs Recent Vital Signs: Last Vital Signs Temp 98.3 F 07/08/18 12:00 Pulse 87 07/08/18 12:00 Resp 18 07/08/18 12:00 BP 145/63 07/08/18 12:00 Pulse Ox 99 07/08/18 05:30 - Labs Result Diagrams: 07/07/18 06:11 07/07/18 06:11 Attending/Attestation - Attestation I have personally seen and examined this patient.: Yes I have fully participated in the care of the patient.: Yes I have reviewed all pertinent clinical information: Yes
[2018-07-04] MEDS: Piperacillin/Tazobact 3.375 gm 100 ML IVPB SCH ×2 (09:36→21:25)
[2018-07-04] MEDS ORDERED: Sodium Chloride 0.9% 1,000 ML IV SCH (10:00)
--- NOTE | 2018-07-04 10:23 | CP.PCM.PN ---
<Fede Gaston - Last Filed: 07/04/18 12:23> Subjective - Date & Time of Evaluation Date of Evaluation: 07/04/18 Time of Evaluation: 08:10 - Subjective Subjective: Infectious disease progress note: Patient seen and examined at bedside. No acute events overnight. Pt c/o abd pain but denies n/v. no fevers. No other complaints. 12 point ROS performed and negative unless stated above. Objective - Vital Signs/Intake and Output Vital Signs (last 24 hours): Temp Pulse Resp BP Pulse Ox 97.7 F 61 13 153/67 H 91 L 07/04/18 09:40 07/04/18 09:40 07/04/18 09:40 07/04/18 08:00 07/04/18 08:51 Intake and Output: 07/04/18 07/04/18 06:59 18:59 Intake Total 2200 Output Total 2500 Balance -300 - Medications Medications: Current Medications Famotidine (Pepcid) 20 mg IVP DAILY [facility] Last Admin: 07/04/18 09:36 Dose: 20 mg Piperacillin Sod/Tazobactam Sod (Zosyn 3.375 In Ns 100ml) 100 mls @ 25 mls/hr IVPB Q12 [facility]; Protocol Stop: 07/11/18 10:01 Last Admin: 07/04/18 09:36 Dose: 25 mls/hr Sodium Chloride (Sodium Chloride 0.9%) 1,000 mls @ 100 mls/hr IV .Q10H [facility] Methylprednisolone (Solu-Medrol) 60 mg IVP Q12 [facility] Stop: 07/04/18 16:22 Last Admin: 07/04/18 09:36 Dose: 60 mg Morphine Sulfate (Morphine) 2 mg IVP Q4H PRN PRN Reason: Pain, severe (8-10) Last Admin: 07/04/18 02:35 Dose: 2 mg - Labs Labs: 07/04/18 00:40 07/04/18 00:40 PT 18.2 SECONDS (9.4-12.5) H 07/01/18 08:50 INR 1.61 07/01/18 08:50 APTT 52.2 Seconds (26.9-38.3) H 07/01/18 08:50 - Constitutional Appears: No Acute Distress - Eye Exam Eye Exam: EOMI, PERRL - ENT Exam ENT Exam: Mucous Membranes Moist - Respiratory Exam Respiratory Exam: Clear to Ausculation Bilateral. absent: Rhonchi, Wheezes - Cardiovascular Exam Cardiovascular Exam: REGULAR RHYTHM, +S1, +S2 - GI/Abdominal Exam GI & Abdominal Exam: Soft. absent: Distended, Tenderness Additional comments: ostomy bag with no surrounding cellulites - Neurological Exam Neurological Exam: Alert, Awake - Skin Skin Exam: Dry, Warm Assessment and Plan - Assessment and Plan (Free Text) Assessment: Severe sepsis secondary to incarcerated hernia with small bowel obstruction and abdominal wall cellulitis Blood culture PNA FISH showed coag negative staph bacteremia likely a contamination Acute kidney injury Metabolic acidosis Crohn's disease Susac syndrome Hypogammaglobulinemia Transaminitis Rhabdomyolysis Continue with Zosyn day 3 Follow-up septic work-up - coag negative staph bacteremia likely a contamination x 1 bottle, repeat cx neg F/u echo - neg for vegetations Follow-up nephrology, surgery, and cardiology recommendations Continue to monitor for any changes Case and plan to be reviewed and discussed with Dr. Clay <Ned Clay - Last Filed: 07/04/18 17:40> Objective - Vital Signs/Intake and Output Vital Signs (last 24 hours): Temp Pulse Resp BP Pulse Ox 97.9 F 66 17 155/80 H 91 L 07/04/18 17:06 07/04/18 17:06 07/04/18 17:01 07/04/18 17:01 07/04/18 08:51 Intake and Output: 07/04/18 07/04/18 06:59 18:59 Intake Total 2200 Output Total 2500 Balance -300 - Medications Medications: Current Medications Famotidine (Pepcid) 20 mg IVP DAILY [facility] Last Admin: 07/04/18 09:36 Dose: 20 mg Piperacillin Sod/Tazobactam Sod (Zosyn 3.375 In Ns 100ml) 100 mls @ 25 mls/hr IVPB Q12 [facility]; Protocol Stop: 07/11/18 10:01 Last Admin: 07/04/18 09:36 Dose: 25 mls/hr Sodium Chloride (Sodium Chloride 0.9%) 1,000 mls @ 100 mls/hr IV .Q10H [facility] Morphine Sulfate (Morphine) 2 mg IVP Q4H PRN PRN Reason: Pain, severe (8-10) Last Admin: 07/04/18 02:35 Dose: 2 mg Zaleplon (Sonata) 5 mg PO HS PRN PRN Reason: Insomnia - Labs Labs: 07/04/18 00:40 07/04/18 11:40 PT 18.2 SECONDS (9.4-12.5) H 07/01/18 08:50 INR 1.61 07/01/18 08:50 APTT 52.2 Seconds (26.9-38.3) H 07/01/18 08:50 Attending/Attestation - Attestation I have personally seen and examined this patient.: Yes I have fully participated in the care of the patient.: Yes I have reviewed all pertinent clinical information, including history, physical exam and plan: Yes
[2018-07-04 12:13] LABS: CALCIUM 8.7 mg/dL (8.4-10.5)
[2018-07-04 12:44] LABS: CK-MB 4.2 ng/mL (0.0-3.6)
--- NOTE | 2018-07-04 13:25 | PN ---
DATE: 07/04/2018 REASON FOR CONSULTATION: Cardiac evaluation and syncope. SUBJECTIVE: The patient denies any chest pain, shortness of breath any palpitation. OBJECTIVE: GENERAL: Not in apparent distress. VITAL SIGNS: Temperature afebrile. Heart rate 61 and blood pressure 152/63. HEENT: PERRLA. Extraocular muscles intact. NECK: Supple. No carotid bruits. No thyromegaly. CHEST: Clear to auscultation. HEART: S1 and S2, regular. ABDOMEN: Soft. EXTREMITIES: Clubbing and cyanosis negative. LABORATORY DATA: Blood work up WBC 4.4, hemoglobin 10.8, hematocrit 32.1, and platelet count 130. Chemistry shows sodium 141, potassium 4.2, chloride 94, carbon dioxide 32, anion gap of 20, BUN 127, creatinine 8.3. IMPRESSION: A 52-year-old male with past medical history significant for bowel perforation, history of Crohn's disease, extensive abdominal surgery secondary to perforation of the bowel and Crohn's disease, status post colostomy, he did have history of coffee-ground emesis. The patient came with acute rhabdomyolysis CPK of 5000, acute kidney injury with creatinine 9.2 and troponin 0.09 with MB fraction 0.2. No evidence of acute myocardial infarction, little bump of the troponin is secondary to rhabdomyolysis. 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 López. The patient had an echocardiography done yesterday, that revealed ejection fraction 55%, trace mitral regurgitation, mild tricuspid regurgitation, right ventricular systolic pressure 33, inferior vena cava is normal size. No evidence of thrombus noted. Also the patient has a history of psoriasis, also history of bowel obstruction and rhabdomyolysis. RECOMMENDATION: Continue IV fluid, monitor renal function closely. CVS status is stable. No evidence of acute TN as mentioned. Avoid nephrotoxic medication. CPK trending down. Further recommendation as per GI and Nephrology. We will follow with you. CVS status is stable. I repeat the blood workup in the morning. Continue broad-spectrum antibiotic and as mentioned supplement electrolytes as noted. Avoid nephrotoxic medication. Creatinine is trending down it decreased from 9.6 maximum to 8.3 and BUN dropping to 122. Continue IV fluid. We will follow with you. Shea Herndon MD [facility] # [id number]
--- NOTE | 2018-07-04 14:11 | PN ---
DATE: 07/04/2018 SUBJECTIVE: The patient is currently seen in ICU bed 2B, sitting in a chair, IV fluids are infusing. He is making excellent urine. He seems to have less discomfort pain and redness over the left lower quadrant abdominal site in the area of the colostomy. His creatinine had fallen to 7.0. His BUN still remains elevated. His metabolic acidosis has resolved. His hyperkalemia and normalized. He does remain on IV antibiotics and he is being followed closely by GI surgery, rubber off an Infectious Disease. PHYSICAL EXAMINATION: INTAKE/OUTPUT. Intake is 4950, output is 5250. VITAL SIGNS: Blood pressure currently 153/67 with a heart rate of 61, temperature 97.7, respiratory rate of 13, oxygen saturation is 91%. HEENT: shows him to be normocephalic, atraumatic. Conjunctivae are pink. Sclerae nonicteric. NECK: Supple. No neck vein distention. CARDIOVASCULAR: Shows a regular rate and rhythm with MR/TR. No S3. No S4. No rub. CHEST: Clear to auscultation and percussion. No rales, rhonchi or wheezing. ABDOMEN: Less distended. Less redness in the area of the left lower quadrant adjacent to the colostomy site. There is less tenderness to palpation. Presently, there is no guarding and no rebound. EXTREMITIES: Show lower extremity cyanosis, clubbing or edema. Distal lower extremity pulses are 1 to 2+ bilaterally. LABORATORY DATA AND IMAGING: His admitting abdominal CT scan showed a ventral wall hernia to the left of the midline with an incarcerated hernia. Reported partial small-bowel obstruction with normal kidneys. CBC, white blood cell count down to 4.4 with a hemoglobin of 10.8 and a platelet count of 130,000. Chemistries, distance education director chemistry showed a BUN of 127 with a creatinine are 8.3. Laboratory work done in the late morning showed a BUN of greater than 120 with a creatinine down to 7.0. On admission, his BUN was 101, one is high as 137. His creatinine on admission was 9.4, it is currently down to 7.0. His baseline BUN and creatinine are in the normal range. Calcium is 8.4, phosphorus 3.2, magnesium 2.1. Mild elevation of his liver enzymes. CPK levels have continue to drop, down from a high of 8615 down to 8133 with resolving acute rhabdomyolysis. Urine, sodium random was 87 with a urine creatinine of 74, fractional secretion of sodium is greater than 1%, urine eosinophils stain is negative. Microbiology, urine cultures are negative. Repeat blood cultures are negative. Initial blood culture was positive for coag-negative staph. MEDICATIONS Medication list reviewed. The patient is currently on morphine, Pepcid, normal saline, Solu-Medrol, and Zosyn. ASSESSMENT: Acute renal failure status post life-threatening hyperkalemia with mild metabolic acidosis. The patient appears to be going in the right direction. BUN remains elevated in part secondary to the use of steroids. Creatinine is continuing to fall. The patient appears to have entered the phase of polyuria post his oliguric ATN. This is in the setting of sepsis, in the setting of incarcerated hernia with bowel obstruction. Also in the setting of acute rhabdomyolysis. PLAN: 1. Plan is to continue IV fluid hydration, to keep intake and output and balance. He has no evidence obstructive uropathy and no evidence for acute interstitial nephritis. Estrada catheter is making urine output easier and we will monitor. History of Crohn's disease status post left lower quadrant colostomy with partial bowel resection. He has multiple abdominal wall hernias. The patient currently has an incarcerated hernia. This is being treated conservatively. He is being seen by Surgery on a regular basis. At present, there is no plans for any surgical procedures. He is being treated with antibiotics. He is on IV fluid, hydration and a his diet is being advanced very slowly. 2. 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 3. Past history of hypogammaglobulinemia. 4. History of psoriasis. 5. History of depression on multiple medications. The patient and I will have a lengthy discussion. He is disgusted with his . He states he has been sick for over 20 years and will go on like this. 6. Acute rhabdomyolysis improving CPK levels are now less than 1000. Discussed in detail with staff in the ICU. We will switch over from sodium bicarbonate and his IV fluids to normal saline. When he took out his intake and output, he has entered into the polyuric phase of ATN. Daily labs. Support electrolytes as necessary. Close surgical followup, close GI followup for possible bowel complications related to his Crohn disease such as fistulous tracts, etc. We will continue to monitor the patient in the ICU perhaps for another day or so. Follow cultures and continue empiric antibiotics. At present, there is no dialysis that is being planned. Greater than 35 minutes spent the care of this patient. Andrew Gutierrez MD
--- NOTE | 2018-07-04 14:30 | CP.PCM.APN ---
Subjective - Date & Time of Evaluation Date of Evaluation: 07/04/18 Time of Evaluation: 12:45 - Subjective Subjective: Pt. seen sitting up in chair, no acute distress. states is so tired, denied abdom pain, denied nausea, vomiting. tolerated clear liquid diet. Objective - Vital Signs/Intake and Output Vital Signs (last 24 hours): Temp Pulse Resp BP Pulse Ox 97.7 F 61 13 153/67 H 91 L 07/04/18 09:40 07/04/18 09:40 07/04/18 09:40 07/04/18 08:00 07/04/18 08:51 Intake and Output: 07/04/18 07/04/18 06:59 18:59 Intake Total 2200 Output Total 2500 Balance -300 - Medications Medications: Current Medications Famotidine (Pepcid) 20 mg IVP DAILY [facility] Last Admin: 07/04/18 09:36 Dose: 20 mg Piperacillin Sod/Tazobactam Sod (Zosyn 3.375 In Ns 100ml) 100 mls @ 25 mls/hr IVPB Q12 [facility]; Protocol Stop: 07/11/18 10:01 Last Admin: 07/04/18 09:36 Dose: 25 mls/hr Sodium Chloride (Sodium Chloride 0.9%) 1,000 mls @ 100 mls/hr IV .Q10H [facility] Methylprednisolone (Solu-Medrol) 60 mg IVP Q12 [facility] Stop: 07/04/18 16:22 Last Admin: 07/04/18 09:36 Dose: 60 mg Morphine Sulfate (Morphine) 2 mg IVP Q4H PRN PRN Reason: Pain, severe (8-10) Last Admin: 07/04/18 02:35 Dose: 2 mg - Labs Labs: 07/04/18 00:40 07/04/18 11:40 PT 18.2 SECONDS (9.4-12.5) H 07/01/18 08:50 INR 1.61 07/01/18 08:50 APTT 52.2 Seconds (26.9-38.3) H 07/01/18 08:50 - Constitutional Appears: Well, Non-toxic - Head Exam Head Exam: NORMOCEPHALIC - Eye Exam Eye Exam: Normal appearance - ENT Exam ENT Exam: Mucous Membranes Moist, Normal Exam - Neck Exam Neck Exam: Full ROM - Respiratory Exam Respiratory Exam: Clear to Ausculation Bilateral - Cardiovascular Exam Cardiovascular Exam: REGULAR RHYTHM, +S1, +S2 - GI/Abdominal Exam GI & Abdominal Exam: Soft, Diminished Bowel Sounds Additional comments: abdominal hernia noted above colostomy, small amount of cellulitis noted adjacent to hernia.Colostomy intact. - Rectal Exam Rectal Exam: Deferred - Exam External exam: absent: Ecchymosis, Erythema, Lacerations, Lesions, NORMAL EXTERNAL EXAM, Swelling Speculum exam: absent: Cervical Discharge, Erythema, Foreign Body, Laceration, NORMAL SPECULUM EXAM, Tissue, Vaginal Bleeding, Vaginal Discharge Bimanual exam: absent: Adenexal Mass, Adnexal, Cervical Motion Tendernes, NORMAL BIMANUAL EXAM, Uterine Enlargement, Uterine Tenderness - Extremities Exam Extremities Exam: Full ROM - Back Exam Back Exam: Full ROM - Neurological Exam Neurological Exam: Alert, Awake - Psychiatric Exam Psychiatric exam: Agitated, Anxious, Depressed, Suicidal Ideation - Skin Skin Exam: Dry, Intact, Normal Color, Warm Assessment and Plan - Assessment and Plan (Free Text) Assessment: ITS Impressions Chest X-Ray 07/01/18 08:47 IMPRESSION: No active disease. Abdomen/Pelvis CT 07/01/18 08:49 IMPRESSION: There is a ventral hernia to the left of midline adjacent to the left lower quadrant colostomy site. There is dilatation of small bowel loops proximal to the hernia as well as within the hernia itself. Findings are consistent with incarcerated hernia with partial small bowel obstruction. The dilated bowel loop within the hernia sac measures 7.7 cm in diameter. Renal Ultrasound 07/01/18 10:59 IMPRESSION: Unremarkable renal sonogram.No significant interval change compared to the prior examination(s). Assessment: 52M with incarcerated ventral hernia, crohns disease, Susac syndrome admitted with sepsis secondary to Incarcerated Hernia, SBO, and abdominal wall cellulitis for further eval and treatment. Plan: 1. Sepsis- Antiibiotics per I.D. Monitor and trend wbc count. 2. Incarcerated hernia- recs per surgery, cont. clear liquids for now, for poss repair as per surgical team, cont. pepcid. 3. Acute Kidney Injury- Maintain IVF, monitor,trend Bun/Creatinine. 4. Chron's disease- cont. Solumedrol. 5. Depression/Agitation with sucical thoughts- Psyche consult pending. PT rec. CEE. cont. recs per surg. team, and antibiotics per I.D. Will continue to monitor clinical status and follow closely.
--- NOTE | 2018-07-04 15:06 | CP.PCM.PN ---
<Monserrat Shoemaker - Last Filed: 07/04/18 15:03> Subjective - Date & Time of Evaluation Date of Evaluation: 07/04/18 Time of Evaluation: 15:03 - Subjective Subjective: Gastroenterology Fellow/PGY6 Progress Note Patient sitting out in chair. Notes improving abdominal pain. Tolerating liquid diet. Patient noted to be upset with overall health status. A 12-point review of systems negative except for as above. Objective - Vital Signs/Intake and Output Vital Signs (last 24 hours): Temp Pulse Resp BP Pulse Ox 97.7 F 61 13 153/67 H 91 L 07/04/18 09:40 07/04/18 09:40 07/04/18 09:40 07/04/18 08:00 07/04/18 08:51 Intake and Output: 07/04/18 07/04/18 06:59 18:59 Intake Total 2200 Output Total 2500 Balance -300 - Medications Medications: Current Medications Famotidine (Pepcid) 20 mg IVP DAILY [facility] Last Admin: 07/04/18 09:36 Dose: 20 mg Piperacillin Sod/Tazobactam Sod (Zosyn 3.375 In Ns 100ml) 100 mls @ 25 mls/hr IVPB Q12 [facility]; Protocol Stop: 07/11/18 10:01 Last Admin: 07/04/18 09:36 Dose: 25 mls/hr Sodium Chloride (Sodium Chloride 0.9%) 1,000 mls @ 100 mls/hr IV .Q10H [facility] Methylprednisolone (Solu-Medrol) 60 mg IVP Q12 [facility] Stop: 07/04/18 16:22 Last Admin: 07/04/18 09:36 Dose: 60 mg Morphine Sulfate (Morphine) 2 mg IVP Q4H PRN PRN Reason: Pain, severe (8-10) Last Admin: 07/04/18 02:35 Dose: 2 mg - Labs Labs: 07/04/18 00:40 07/04/18 11:40 PT 18.2 SECONDS (9.4-12.5) H 07/01/18 08:50 INR 1.61 07/01/18 08:50 APTT 52.2 Seconds (26.9-38.3) H 07/01/18 08:50 - Constitutional Appears: Non-toxic, No Acute Distress, Chronically Ill - Head Exam Head Exam: ATRAUMATIC, NORMOCEPHALIC - Eye Exam Eye Exam: EOMI, PERRL. absent: Scleral icterus Pupil Exam: PERRL. absent: Miosis, Mydriatic - ENT Exam ENT Exam: Mucous Membranes Moist, Normal Oropharynx - Neck Exam Neck Exam: Full ROM, Normal Inspection - Respiratory Exam Respiratory Exam: Clear to Ausculation Bilateral. absent: Rales, Rhonchi, Wheezes - Cardiovascular Exam Cardiovascular Exam: RRR, +S1, +S2. absent: Gallop, Rubs - GI/Abdominal Exam GI & Abdominal Exam: Soft, Tenderness, Hernia, Normal Bowel Sounds. 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 Active treatment of acute renal failure and sepsis 2/2 bowel obstruction due to ventral incarcerated hernia. Plan: -surgery managing- clear liquids, conservative management,follow recommendations -on Zosyn -continue bowel regimen -supportive care- pain control, IVFs -low suspicion for Crohn's flare -nephrology managing -will follow clinical course <Eric Okeefe V - Last Filed: 07/04/18 19:29> Objective - Vital Signs/Intake and Output Vital Signs (last 24 hours): Temp Pulse Resp BP Pulse Ox 97.9 F 66 17 155/80 H 91 L 07/04/18 17:06 07/04/18 17:06 07/04/18 17:01 07/04/18 17:01 07/04/18 08:51 Intake and Output: 07/04/18 07/05/18 18:59 06:59 Intake Total 2170 Output Total 2400 Balance -230 - Medications Medications: Current Medications Famotidine (Pepcid) 20 mg IVP DAILY [facility] Last Admin: 07/04/18 09:36 Dose: 20 mg Piperacillin Sod/Tazobactam Sod (Zosyn 3.375 In Ns 100ml) 100 mls @ 25 mls/hr IVPB Q12 [facility]; Protocol Stop: 07/11/18 10:01 Last Admin: 07/04/18 09:36 Dose: 25 mls/hr Sodium Chloride (Sodium Chloride 0.9%) 1,000 mls @ 100 mls/hr IV .Q10H [facility] Morphine Sulfate (Morphine) 2 mg IVP Q4H PRN PRN Reason: Pain, severe (8-10) Last Admin: 07/04/18 02:35 Dose: 2 mg Zaleplon (Sonata) 5 mg PO HS PRN PRN Reason: Insomnia - Labs Labs: 07/04/18 00:40 07/04/18 11:40 PT 18.2 SECONDS (9.4-12.5) H 07/01/18 08:50 INR 1.61 07/01/18 08:50 APTT 52.2 Seconds (26.9-38.3) H 07/01/18 08:50 Attending/Attestation - Attestation I have personally seen and examined this patient.: Yes I have fully participated in the care of the patient.: Yes I have reviewed all pertinent clinical information, including history, physical exam and plan: Yes Notes (Text): This is an addendum to the GI progress report dictated by the fellow. The patient was seen and reviewed along with the fellow. The redness and the distention appears to be less prominent in in the incarcerated hernia area. Clinically does not Crohn's flareup. Continue close renal follow-up Discussed with the Dr. López earlier 07/04/18 19:27
--- NOTE | 2018-07-04 20:08 | PN ---
DATE: 07/04/2018 SUBJECTIVE: This patient was seen today. Discussed with nursing staff. The patient has episodes of being tearful, also episodes of hopelessness which is related to the medical condition what he has right now. During this underwriter solicitation director's visit, the patient became tearful, said that he is tired of being sick. The patient reported being hopeless in regards to his medical condition. The patient denied any thoughts of harming himself or others, denied intents or plan. Supportive therapy and empathic listening provided, the patient was receptive. VITAL SIGNS: Reviewed. MEDICATIONS: Reviewed. LABORATORY DATA: Reviewed. MICROBIOLOGY: Reviewed. This underwriter solicitation director would implement Sonata as needed for insomnia. The patient was given homework to do in order to start thinking positive. The patient was receptive. MENTAL STATUS EXAM: The patient presented to be alert and oriented, pleasant, at times tearful. Mood described as hopeless. Affect was tearful and mood congruent. Thought process coherent and goal-directed. Thought content, the patient denied visual, auditory tactile hallucinations and sensation the patient denied thoughts of harming herself or others, denied intent or plan. Insight and judgment seems to be improving. Impulses are well controlled. IMPRESSION: Rule out major depressive disorder, rule out mood disorder due to general medical condition. PLAN: Family was advised to bring medication list for the patient, because the patient was using mail pharmacy. This underwriter solicitation director will implement Sonata at the nighttime as needed for insomnia. Homework was given to the patient to do. Also supportive therapy and empathic listening provided, the patient was receptive. Should you have any questions give me a call back. Brandie Schaefer MD
[2018-07-04 20:21] LABS: CALCIUM 8.4 mg/dL (8.4-10.5)
--- NOTE | 2018-07-04 23:41 | CP.PCM.PN ---
<TyrelRoger Moses - Last Filed: 07/04/18 23:42> Subjective - Date & Time of Evaluation Date of Evaluation: 07/04/18 Time of Evaluation: 23:40 - Subjective Subjective: Heme/Onc and Medicine Progress note Patient seen and examined at bedside; patient was agitated overniht with similar complaints as yesterday. Denies any new complaints but is still very upset about all of his medical problems. Tearful on interview Objective - Vital Signs/Intake and Output Vital Signs (last 24 hours): Temp Pulse Resp BP Pulse Ox 99.0 F 81 35 H 177/82 H 91 L 07/04/18 23:03 07/04/18 23:03 07/04/18 23:03 07/04/18 23:04 07/04/18 08:51 Intake and Output: 07/04/18 07/05/18 18:59 06:59 Intake Total 2170 Output Total 2400 Balance -230 - Medications Medications: Current Medications Famotidine (Pepcid) 20 mg IVP DAILY [facility] Last Admin: 07/04/18 09:36 Dose: 20 mg Piperacillin Sod/Tazobactam Sod (Zosyn 3.375 In Ns 100ml) 100 mls @ 25 mls/hr IVPB Q12 [facility]; Protocol Stop: 07/11/18 10:01 Last Admin: 07/04/18 21:25 Dose: 25 mls/hr Sodium Chloride (Sodium Chloride 0.9%) 1,000 mls @ 100 mls/hr IV .Q10H [facility] Last Admin: 07/04/18 21:25 Dose: 100 mls/hr Morphine Sulfate (Morphine) 2 mg IVP Q4H PRN PRN Reason: Pain, severe (8-10) Last Admin: 07/04/18 02:35 Dose: 2 mg Zaleplon (Sonata) 5 mg PO HS PRN PRN Reason: Insomnia Last Admin: 07/04/18 23:20 Dose: 5 mg - Labs Labs: 07/04/18 00:40 07/04/18 20:08 PT 18.2 SECONDS (9.4-12.5) H 07/01/18 08:50 INR 1.61 07/01/18 08:50 APTT 52.2 Seconds (26.9-38.3) H 07/01/18 08:50 - Constitutional Appears: Well - Head Exam Head Exam: ATRAUMATIC, NORMAL INSPECTION, NORMOCEPHALIC - Eye Exam Eye Exam: EOMI, Normal appearance, PERRL Pupil Exam: NORMAL ACCOMODATION, PERRL - ENT Exam ENT Exam: Mucous Membranes Moist, Normal Exam - Neck Exam Neck Exam: Full ROM, Normal Inspection. absent: Lymphadenopathy - Respiratory Exam Respiratory Exam: Clear to Ausculation Bilateral, NORMAL BREATHING PATTERN - Cardiovascular Exam Cardiovascular Exam: REGULAR RHYTHM, +S1, +S2. absent: Murmur - GI/Abdominal Exam GI & Abdominal Exam: Soft, Normal Bowel Sounds. absent: Tenderness - Extremities Exam Extremities Exam: Full ROM, Normal Capillary Refill, Normal Inspection. absent: Joint Swelling, Pedal Edema - Back Exam Back Exam: NORMAL INSPECTION - Neurological Exam Neurological Exam: Alert, Awake, CN II-XII Intact, Normal Gait, Oriented x3 - Psychiatric Exam Psychiatric exam: Normal Affect, Normal Mood - Skin Skin Exam: Dry, Intact, Normal Color, Warm - Additional Findings Additional findings: Left sided ventral hernia; less distended than described in previous notes.; patient's erythema appears improved Assessment and Plan - Assessment and Plan (Free Text) Assessment: 52 M with pertinent history of Susac and Crohn's under ICU management for severe rhabdomyolysis and SETH. Patient has a colostomy bag from active colitis and has not been able to have a reversal. With regards to his active assessments, patient's SETH is likely 2/2 ATN from rhabdomyolysis. Rhabdo is improving, SETH is improving. Per discussion with polyethylene combiner Dr. Rice, the ATN will take some time to resolve. Patient's I/O are improving. With respect to sepsis, patient was afebrile overnight; one tube of blood shows coag neg staphylococcus. We will watch patient closely. Plan - Continue with IVF; discontinue bicarb drip - Continue with Zosyn for sepsis - Continue steroids, solu-medrol - Continue with pepcid for GI ppx <Levi López P - Last Filed: 07/05/18 16:11> Objective - Vital Signs/Intake and Output Vital Signs (last 24 hours): Temp Pulse Resp BP Pulse Ox 97.9 F 78 23 185/98 H 96 07/05/18 08:00 07/05/18 13:40 07/05/18 13:40 07/05/18 11:41 07/05/18 13:40 Intake and Output: 07/05/18 07/05/18 06:59 18:59 Intake Total 1835 550 Output Total 3530 700 Balance -1695 -150 - Medications Medications: Current Medications Amlodipine Besylate (Norvasc) 10 mg PO DAILY [facility] Last Admin: 07/05/18 09:57 Dose: 10 mg Famotidine (Pepcid) 20 mg PO 1000,2200 [facility] Last Admin: 07/05/18 09:56 Dose: 20 mg Hydralazine HCl (Apresoline) 10 mg PO QID PRN PRN Reason: For SBP>160 Piperacillin Sod/Tazobactam Sod (Zosyn 3.375 In Ns 100ml) 100 mls @ 25 mls/hr IVPB Q12 [facility]; Protocol Stop: 07/11/18 10:01 Last Admin: 07/05/18 09:57 Dose: 25 mls/hr Morphine Sulfate (Morphine) 2 mg IVP Q4H PRN PRN Reason: Pain, severe (8-10) Last Admin: 07/05/18 02:30 Dose: 2 mg Zaleplon (Sonata) 5 mg PO HS PRN PRN Reason: Insomnia Last Admin: 07/04/18 23:20 Dose: 5 mg - Labs Labs: 07/05/18 06:00 07/05/18 06:00 PT 18.2 SECONDS (9.4-12.5) H 07/01/18 08:50 INR 1.61 07/01/18 08:50 APTT 52.2 Seconds (26.9-38.3) H 07/01/18 08:50 Attending/Attestation - Attestation I have personally seen and examined this patient.: Yes I have fully participated in the care of the patient.: Yes I have reviewed all pertinent clinical information, including history, physical exam and plan: Yes
[2018-07-05] MEDS: Morphine 2 mg/ml ISec IVP PRN ×3 (02:30→21:46)
[2018-07-05 06:22] LABS: BASO # 0.03 K/mm3 (0.0-2.0); BASO % 0.4 % (0.0-3.0); HEMOGLOBIN 11.5 g/dL (14.0-18.0); LYMPH # 1.6 (1.2-3.4); LYMPH % 23.6 % (22.0-35.0); MEAN CELL VOLUME 93.9 fl (80.0-105.0); MEAN CORPUSCULAR HEMOGLOBIN 30.5 pg (25.0-35.0); MEAN CORPUSCULAR HGB CONC 32.5 g/dl (31.0-37.0); MEAN PLATELET VOLUME 10.1 fl (7.0-11.0); MONO # 0.4 (0.1-0.6); MONO % 5.7 % (1.0-6.0); RBC 3.77 10^6/uL (3.5-6.1); RED CELL DISTRIBUTION WIDTH 14.4 % (11.5-14.5); WHITE BLOOD COUNT 6.8 10^3/uL (4.5-11.0)
[2018-07-05 06:52] LABS: ALB/GLOB RATIO 0.9 (1.1-1.8); ALBUMIN 3.2 g/dL (3.0-4.8); CALCIUM 8.3 mg/dL (8.4-10.5)
--- NOTE | 2018-07-05 07:21 | CP.PCM.PN ---
<Monserrat Shoemaker - Last Filed: 07/05/18 10:10> Subjective - Date & Time of Evaluation Date of Evaluation: 07/05/18 Time of Evaluation: 07:17 - Subjective Subjective: Gastroenterology Fellow/PGY6 Progress Note Patient notes improving abdominal pain. Tolerating liquid diet. Completing physical therapy at time of evaluation. A 12-point review of systems negative except for as above. Objective - Vital Signs/Intake and Output Vital Signs (last 24 hours): Temp Pulse Resp BP Pulse Ox 97.9 F 81 18 169/79 H 93 L 07/05/18 06:03 07/05/18 06:03 07/05/18 06:03 07/05/18 06:03 07/05/18 06:03 Intake and Output: 07/05/18 07/05/18 06:59 18:59 Intake Total 1835 Output Total 3530 Balance -1695 - Medications Medications: Current Medications Famotidine (Pepcid) 20 mg IVP DAILY [facility] Last Admin: 07/04/18 09:36 Dose: 20 mg Piperacillin Sod/Tazobactam Sod (Zosyn 3.375 In Ns 100ml) 100 mls @ 25 mls/hr IVPB Q12 [facility]; Protocol Stop: 07/11/18 10:01 Last Admin: 07/04/18 21:25 Dose: 25 mls/hr Sodium Chloride (Sodium Chloride 0.9%) 1,000 mls @ 100 mls/hr IV .Q10H [facility] Last Admin: 07/04/18 21:25 Dose: 100 mls/hr Morphine Sulfate (Morphine) 2 mg IVP Q4H PRN PRN Reason: Pain, severe (8-10) Last Admin: 07/05/18 02:30 Dose: 2 mg Zaleplon (Sonata) 5 mg PO HS PRN PRN Reason: Insomnia Last Admin: 07/04/18 23:20 Dose: 5 mg - Labs Labs: 07/05/18 06:00 07/05/18 06:00 PT 18.2 SECONDS (9.4-12.5) H 07/01/18 08:50 INR 1.61 07/01/18 08:50 APTT 52.2 Seconds (26.9-38.3) H 07/01/18 08:50 - Constitutional Appears: Non-toxic, No Acute Distress - Head Exam Head Exam: ATRAUMATIC - Eye Exam Eye Exam: EOMI, PERRL. absent: Scleral icterus Pupil Exam: PERRL. absent: Miosis, Mydriatic - ENT Exam ENT Exam: Mucous Membranes Moist, Normal Oropharynx - Neck Exam Neck Exam: Full ROM, Normal Inspection - Respiratory Exam Respiratory Exam: Clear to Ausculation Bilateral. absent: Rales, Rhonchi, Wheezes - Cardiovascular Exam Cardiovascular Exam: RRR, +S1, +S2. absent: Gallop, Rubs - GI/Abdominal Exam GI & Abdominal Exam: Soft, Tenderness, Normal Bowel Sounds. 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 Active treatment of acute renal failure and sepsis 2/2 bowel obstruction due to ventral incarcerated hernia. Plan: -surgery managing diet, conservative management, follow up recommendations -low suspicion for Crohn's flare -on Zosyn -continue bowel regimen -supportive care- pain control, IVFs -nephrology managing -thank you for opportunity to participate in the care of this patient <Eric Okeefe V - Last Filed: 07/05/18 18:27> Objective - Vital Signs/Intake and Output Vital Signs (last 24 hours): Temp Pulse Resp BP Pulse Ox 98.3 F 83 20 156/81 H 96 07/05/18 18:11 07/05/18 18:11 07/05/18 18:11 07/05/18 18:11 07/05/18 13:40 Intake and Output: 07/05/18 07/05/18 06:59 18:59 Intake Total 1835 550 Output Total 3530 700 Balance -1695 -150 - Medications Medications: Current Medications Amlodipine Besylate (Norvasc) 10 mg PO DAILY [facility] Last Admin: 07/05/18 09:57 Dose: 10 mg Famotidine (Pepcid) 20 mg PO 1000,2200 [facility] Last Admin: 07/05/18 09:56 Dose: 20 mg Hydralazine HCl (Apresoline) 10 mg PO QID PRN PRN Reason: For SBP>160 Piperacillin Sod/Tazobactam Sod (Zosyn 3.375 In Ns 100ml) 100 mls @ 25 mls/hr IVPB Q12 [facility]; Protocol Stop: 07/11/18 10:01 Last Admin: 07/05/18 09:57 Dose: 25 mls/hr Morphine Sulfate (Morphine) 2 mg IVP Q4H PRN PRN Reason: Pain, severe (8-10) Last Admin: 07/05/18 17:27 Dose: 2 mg Zaleplon (Sonata) 5 mg PO HS PRN PRN Reason: Insomnia Last Admin: 07/04/18 23:20 Dose: 5 mg - Labs Labs: 07/05/18 06:00 07/05/18 06:00 PT 18.2 SECONDS (9.4-12.5) H 07/01/18 08:50 INR 1.61 07/01/18 08:50 APTT 52.2 Seconds (26.9-38.3) H 07/01/18 08:50 Attending/Attestation - Attestation I have personally seen and examined this patient.: Yes I have fully participated in the care of the patient.: Yes I have reviewed all pertinent clinical information, including history, physical exam and plan: Yes Notes (Text): This is an addendum to the GI progress report dictated by the resident. The catarina pascual was seen and evaluated along with the resident. Patient doing much better. The redness over the course of the hernia site has significantly improved. Less tender. This patient has Crohn's disease has been stable for years. Follow-up with renal. 07/05/18 18:27
--- NOTE | 2018-07-05 08:08 | CP.CCUPN ---
<Lennox Pineda - Last Filed: 07/05/18 10:41> CCU Subjective - Physician Review Subjective (Free Text): Lennox Pineda PGY-1 Critical Care Progress Note Patient seen and evaluated at bedside. No acute events reported overnight. Afebrile overnight. Currently resting comfortably in bedside chair in no acute distress without nasal cannula. Patient reports abdominal pain is currently controlled. Denies chest pain, palpitations, shortness of breath, leg pain. CCU Objective - Vital Signs / Intake & Output Vital Signs (Last 4 hours): Vital Signs Temp Pulse Resp BP Pulse Ox 07/05/18 06:03 97.9 F 81 18 169/79 H 93 L 07/05/18 06:00 97.9 F 81 16 169/79 H 93 L 07/05/18 05:50 97.9 F 72 27 H 07/05/18 05:40 97.9 F 64 20 07/05/18 05:31 97.9 F 70 07/05/18 05:30 97.9 F 72 07/05/18 05:26 97.9 F 58 L 07/05/18 05:20 97.9 F 65 15 07/05/18 05:10 97.9 F 63 22 07/05/18 05:00 97.9 F 59 L 19 07/05/18 04:50 97.9 F 64 23 07/05/18 04:40 97.9 F 54 L 21 07/05/18 04:30 97.9 F 63 16 07/05/18 04:20 97.9 F 47 L 20 07/05/18 04:13 97.9 F 61 07/05/18 04:10 97.9 F 61 22 Intake and Output (Last 8hrs): Intake & Output 07/04/18 07/05/18 07/05/18 22:59 06:59 14:59 Intake Total 2170 1835 Output Total 2400 3530 Balance -230 -1695 Weight 102.512 kg Intake: IV 1450 1355 ANTIBIOTIC 100 Left Forearm 1450 55 Left Upper arm 1200 Oral 720 480 Tube Feeding 0 TPN/PPN 0 Blood Product 0 Lipid 0 Albumin 0 Other 0 Output: Drainage 30 Left Lower Quadrant 30 Colostomy Urine 2400 3500 Urethral (Estrada) 2400 3500 Stool 0 Urine/Stool Mix 0 Emesis 0 Oral Regurgitation 0 Other 0 Other: # Voids Urethral (Estrada) 0 # Bowel Movements 0 - Physical Exam Head: Positive for: Atraumatic, Normocephalic Pupils: Positive for: PERRL Extroacular Muscles: Positive for: EOMI Conjunctiva: Positive for: Normal Mouth: Positive for: Moist Mucous Membranes Neck: Positive for: Normal Range of Motion Respiratory/Chest: Positive for: Clear to Auscultation, Good Air Exchange. Negative for: Respiratory Distress, Accessory Muscle Use, Wheezes, Rales, Rhonchi Cardiovascular: Positive for: Regular Rate and Rhythm, Normal S1, S2. Negative for: Murmurs Abdomen: Positive for: Other (Colostomy to left lower quadrant, nontender L sided non reducible ventral hernia without erythema overlying the site.). Negative for: Tenderness, Distention, Normal Bowel Sounds (normoactive on L side, hypoactive on L side), Peritoneal Signs, Rebound, Guarding, McBurney's Point Tender Back: Positive for: Normal Inspection Upper Extremity: Positive for: Normal Inspection. Negative for: Cyanosis, Edema Lower Extremity: Positive for: Normal Inspection. Negative for: Edema Neurological: Positive for: GCS=15, Speech Normal, Other (Hard of hearing) Skin: Positive for: Warm, Dry, Normal Color. Negative for: Rashes Psychiatric: Positive for: Alert, Normal Insight, Normal Concentration, Depressed Mood. Negative for: Oriented x 3 (Oriented x 2 ) - Medications Active Medications: Active Medications Generic Name Dose Route Start Last Admin Trade Name Freq PRN Reason Stop Dose Admin Famotidine 20 mg 07/01/18 13:15 07/04/18 09:36 Pepcid IVP 20 mg DAILY SANTINO Administration Piperacillin Sod/Tazobactam Sod 100 mls @ 25 mls/hr 07/02/18 10:00 07/04/18 21:25 Zosyn 3.375 In Ns 100ml IVPB 07/11/18 10:01 25 mls/hr Q12 SANTINO Administration Protocol Sodium Chloride 1,000 mls @ 100 mls/hr 07/04/18 10:00 07/04/18 21:25 Sodium Chloride 0.9% IV 100 mls/hr .Q10H SANTINO Administration Morphine Sulfate 2 mg 07/01/18 15:48 07/05/18 02:30 Morphine IVP 2 mg Q4H PRN Administration Pain, severe (8-10) Zaleplon 5 mg 07/04/18 15:14 07/04/18 23:20 Sonata PO 5 mg HS PRN Administration Insomnia - Patient Studies Lab Studies: Microbiology Studies 07/02/18 15:00 Blood Culture - Preliminary Blood NO GROWTH AFTER 48 HOURS 07/02/18 14:30 Blood Culture - Preliminary Blood NO GROWTH AFTER 48 HOURS 07/01/18 18:40 Urine Culture - Final Urine Random No Growth (<1,000 CFU/ML) 07/01/18 09:10 Blood Culture - Preliminary Blood NO GROWTH AFTER 3 DAYS 07/01/18 08:50 S.aureus & Coag-Neg Staph PNA FISH - Final Blood Blood Culture - Final Coagulase Neg Staphylococcus Gram Stain - Final Lab Studies 07/05/18 07/05/18 07/04/18 Range/Units 06:00 06:00 20:08 WBC 6.8 D (4.5-11.0) 10^3/uL RBC 3.77 (3.5-6.1) 10^6/uL Hgb 11.5 L (14.0-18.0) g/dL Hct 35.4 L (42.0-52.0) % MCV 93.9 (80.0-105.0) fl MCH 30.5 (25.0-35.0) pg MCHC 32.5 (31.0-37.0) g/dl RDW 14.4 (11.5-14.5) % Plt Count 141 (120.0-450.0) 10^3/uL MPV 10.1 (7.0-11.0) fl Neut % (Auto) 70.3 H (50.0-68.0) % Lymph % (Auto) 23.6 (22.0-35.0) % [place] % (Auto) 5.7 (1.0-6.0) % Eos % (Auto) 0.0 L (1.5-5.0) % Baso % (Auto) 0.4 (0.0-3.0) % Lymph # (Auto) 1.6 (1.2-3.4) [place] # (Auto) 0.4 (0.1-0.6) Eos # (Auto) 0.0 (0.0-0.7) Baso # (Auto) 0.03 (0.0-2.0) K/mm3 Absolute Neuts (auto) 4.78 (1.4-6.5) Sodium 142 139 (132-148) mmol/L Potassium 4.5 4.2 (3.6-5.0) mmol/L Chloride 105 99 (98-107) mmol/L Carbon Dioxide 29 29 (21-33) mmol/L Anion Gap 12 16 (10-20) BUN 104 H 118 H (7-21) mg/dL Creatinine 5.2 H 6.0 H (0.8-1.5) mg/dl Est GFR ( Amer) 14 12 Est GFR (Non-Af Amer) 12 10 Random Glucose 133 H 215 H (70-110) mg/dL Calcium 8.3 L 8.4 (8.4-10.5) mg/dL Phosphorus 4.0 (2.5-4.5) mg/dL Magnesium 1.7 (1.7-2.2) mg/dL Total Bilirubin 1.0 (0.2-1.3) mg/dL AST 74 H D (17-59) U/L ALT 62 H (7-56) U/L Alkaline Phosphatase 79 (38-126) U/L Total Creatine Kinase (35-230) U/L CK-MB (CK-2) (0.0-3.6) ng/mL CK-MB (CK-2) % Myoglobin (<=95) mcg/L Total Protein 7.0 (5.8-8.3) g/dL Albumin 3.2 (3.0-4.8) g/dL Globulin 3.8 gm/dL Albumin/Globulin Ratio 0.9 L (1.1-1.8) 07/04/18 07/01/18 Range/Units 11:40 18:20 WBC (4.5-11.0) 10^3/uL RBC (3.5-6.1) 10^6/uL Hgb (14.0-18.0) g/dL Hct (42.0-52.0) % MCV (80.0-105.0) fl MCH (25.0-35.0) pg MCHC (31.0-37.0) g/dl RDW (11.5-14.5) % Plt Count (120.0-450.0) 10^3/uL MPV (7.0-11.0) fl Neut % (Auto) (50.0-68.0) % Lymph % (Auto) (22.0-35.0) % [place] % (Auto) (1.0-6.0) % Eos % (Auto) (1.5-5.0) % Baso % (Auto) (0.0-3.0) % Lymph # (Auto) (1.2-3.4) [place] # (Auto) (0.1-0.6) Eos # (Auto) (0.0-0.7) Baso # (Auto) (0.0-2.0) K/mm3 Absolute Neuts (auto) (1.4-6.5) Sodium 139 (132-148) mmol/L Potassium 4.7 (3.6-5.0) mmol/L Chloride 95 L (98-107) mmol/L Carbon Dioxide 30 (21-33) mmol/L Anion Gap 19 (10-20) BUN 124 H* (7-21) mg/dL Creatinine 7.0 H (0.8-1.5) mg/dl Est GFR ( Amer) 10 Est GFR (Non-Af Amer) 8 Random Glucose 210 H (70-110) mg/dL Calcium 8.7 (8.4-10.5) mg/dL Phosphorus (2.5-4.5) mg/dL Magnesium (1.7-2.2) mg/dL Total Bilirubin (0.2-1.3) mg/dL AST (17-59) U/L ALT (7-56) U/L Alkaline Phosphatase (38-126) U/L Total Creatine Kinase 833 H (35-230) U/L CK-MB (CK-2) 4.2 H (0.0-3.6) ng/mL CK-MB (CK-2) % Cancelled Myoglobin >8750 H (<=95) mcg/L Total Protein (5.8-8.3) g/dL Albumin (3.0-4.8) g/dL Globulin gm/dL Albumin/Globulin Ratio (1.1-1.8) Laboratory Results - last 24 hr 05/07/04/18 07/04/18 18:20 11:40 20:08 WBC RBC Hgb Hct MCV MCH MCHC RDW Plt Count MPV Neut % (Auto) Lymph % (Auto) [place] % (Auto) Eos % (Auto) Baso % (Auto) Lymph # (Auto) [place] # (Auto) Eos # (Auto) Baso # (Auto) Absolute Neuts (auto) Sodium 139 139 Potassium 4.7 4.2 Chloride 95 L 99 Carbon Dioxide 30 29 Anion Gap 19 16 BUN 124 H* 118 H Creatinine 7.0 H 6.0 H Est GFR ( Amer) 10 12 Est GFR (Non-Af Amer) 8 10 Random Glucose 210 H 215 H Calcium 8.7 8.4 Phosphorus Magnesium Total Bilirubin AST ALT Alkaline Phosphatase Total Creatine Kinase 833 H CK-MB (CK-2) 4.2 H CK-MB (CK-2) % Cancelled Myoglobin >8750 H Total Protein Albumin Globulin Albumin/Globulin Ratio 07/05/18 07/05/18 06:00 06:00 WBC 6.8 D RBC 3.77 Hgb 11.5 L Hct 35.4 L MCV 93.9 MCH 30.5 MCHC 32.5 RDW 14.4 Plt Count 141 MPV 10.1 Neut % (Auto) 70.3 H Lymph % (Auto) 23.6 [place] % (Auto) 5.7 Eos % (Auto) 0.0 L Baso % (Auto) 0.4 Lymph # (Auto) 1.6 [place] # (Auto) 0.4 Eos # (Auto) 0.0 Baso # (Auto) 0.03 Absolute Neuts (auto) 4.78 Sodium 142 Potassium 4.5 Chloride 105 Carbon Dioxide 29 Anion Gap 12 BUN 104 H Creatinine 5.2 H Est GFR ( Amer) 14 Est GFR (Non-Af Amer) 12 Random Glucose 133 H Calcium 8.3 L Phosphorus 4.0 Magnesium 1.7 Total Bilirubin 1.0 AST 74 H D ALT 62 H Alkaline Phosphatase 79 Total Creatine Kinase CK-MB (CK-2) CK-MB (CK-2) % Myoglobin Total Protein 7.0 Albumin 3.2 Globulin 3.8 Albumin/Globulin Ratio 0.9 L Fingerstick Blood Sugar Results: 125 Review of Systems - Review of Systems Review of Systems: 12 point ROS completed and negative except as described in HPI. Critical Care Progress Note - Nutrition Nutrition: Nutrition Category Date Time Status Liquid Diet [DIET] Diets 07/03/18 Lunch Ordered Assessment/Plan - Assessment and Plan (Free Text) Assessment: 52 year old male with past medical history of crohn's disease s/p colostomy, Marlys ac syndrome, psoriasis, cerebral vasculitis with bilateral hearing loss, depression who presents in acute renal failure and sepsis 2/2 bowel obstruction. Improving renal function with consistently good urine output. Patient hemodynamically stable, in no acute distress. Neuro: -AAOx3, no FND, moving extremities past midline. -Monitor neuro status. -Reorient patient as necessary. Cardio: -RRR, normotensive, no signs of HD compromise -07/01 echo shows EF 55-60%, mild TR -Maintain MAP>65. -Monitor for S/S, HD compromise. Pulm: -No signs of respiratory distress. CTA B/L -Maintain O2 saturation >90%. -O2 NC PRN -aspiration precautions, fall precautions -CXR 07/01/18 neg -Elevate bed to 30 degrees GI: 07/01/18 CT abd/pel: incarcerated ventral hernia with partial SBO adjacent to colostomy. -tolerating CLD -Protonix -Pain control with Morphine -Dr. Hope on consult -Gen Surg on consult- Dr. Voss- no plan for OR at this time, c/w IVF rescucitation. Possible second opinion pending. -F/U CT abd/pelvis PO contrast per surgery /Nephro: -Acute renal failure improving, Cr 5.2 most recently -Improving hyperkalemia, remains normal this AM -Nephro on consult- Dr. Rice -Contraction alkalosis on ABG and CMP 2/2 fluid resuscitation -Discontinue IVF per cardio -Estrada in place, almost 6 L out yesterday -Repeat CK continues to decrease, Myoglobin 8750 -Continue monitoring -Daily weights, Strict Is and Os -Replete electrolytes as needed. -Maintain euvolemia. Endocrinology: -Random glucose: 133 -Maintain euglycemia. Heme/Onc: -H/H stable -No signs of HD compromise. 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 Psych: -Frustrated about constant hospitalizations -Sonata started per psych -no SI/HI endorsed -Psych consult placed - Dr. Schaefer DVT prophylaxis: SCDs GI ppx: Pepcid transitioned to PO Patient seen, case reviewed and plan approved by Dr. Doan. Lennox Pineda, PGY-1 <Fish Doan - Last Filed: 07/05/18 14:03> CCU Objective - Vital Signs / Intake & Output Vital Signs (Last 4 hours): Vital Signs Pulse Resp BP Pulse Ox 07/05/18 13:40 78 23 96 07/05/18 13:30 74 25 H 97 07/05/18 13:20 81 22 96 07/05/18 13:10 80 40 H 94 L 07/05/18 13:00 78 20 97 07/05/18 12:50 75 20 98 07/05/18 12:40 66 18 94 L 07/05/18 12:30 75 20 95 07/05/18 12:20 87 18 97 07/05/18 12:10 68 18 96 07/05/18 12:01 76 25 H 07/05/18 12:00 75 25 H 98 07/05/18 11:50 74 20 94 L 07/05/18 11:44 66 20 07/05/18 11:43 68 20 07/05/18 11:42 69 21 07/05/18 11:41 185/98 H 07/05/18 11:40 67 24 07/05/18 11:39 86 27 H 07/05/18 11:38 85 43 H 07/05/18 11:37 72 21 07/05/18 11:36 75 30 H 07/05/18 11:30 75 24 100 07/05/18 11:20 79 19 96 07/05/18 11:10 85 15 95 07/05/18 11:00 81 17 95 07/05/18 10:50 75 17 94 L 07/05/18 10:40 77 18 95 07/05/18 10:30 80 21 96 07/05/18 10:20 77 18 97 07/05/18 10:10 80 19 98 Intake and Output (Last 8hrs): Intake & Output 07/04/18 07/05/18 07/05/18 22:59 06:59 14:59 Intake Total 2170 1835 Output Total 2400 3530 Balance -230 -1695 Weight 226 lb Intake: IV 1450 1355 ANTIBIOTIC 100 Left Forearm 1450 55 Left Upper arm 1200 Oral 720 480 Tube Feeding 0 TPN/PPN 0 Blood Product 0 Lipid 0 Albumin 0 Other 0 Output: Drainage 30 Left Lower Quadrant 30 Colostomy Urine 2400 3500 Urethral (Estrada) 2400 3500 Stool 0 Urine/Stool Mix 0 Emesis 0 Oral Regurgitation 0 Other 0 Other: # Voids Urethral (Estrada) 0 # Bowel Movements 0 - Medications Active Medications: Active Medications Generic Name Dose Route Start Last Admin Trade Name Freq PRN Reason Stop Dose Admin Amlodipine Besylate 10 mg 07/05/18 10:00 07/05/18 09:57 Norvasc PO 10 mg DAILY SANTINO Administration Famotidine 20 mg 07/05/18 10:00 07/05/18 09:56 Pepcid PO 20 mg 1000,2200 SANTINO Administration Hydralazine HCl 10 mg 07/05/18 09:48 Apresoline PO QID PRN For SBP>160 Piperacillin Sod/Tazobactam Sod 100 mls @ 25 mls/hr 07/02/18 10:00 07/05/18 09:57 Zosyn 3.375 In Ns 100ml IVPB 07/11/18 10:01 25 mls/hr Q12 SANTINO Administration Protocol Morphine Sulfate 2 mg 07/01/18 15:48 07/05/18 02:30 Morphine IVP 2 mg Q4H PRN Administration Pain, severe (8-10) Zaleplon 5 mg 07/04/18 15:14 07/04/18 23:20 Sonata PO 5 mg HS PRN Administration Insomnia - Patient Studies Lab Studies: Microbiology Studies 07/01/18 09:10 Blood Culture - Preliminary Blood NO GROWTH AFTER 4 DAYS 07/02/18 15:00 Blood Culture - Preliminary Blood NO GROWTH AFTER 48 HOURS 07/02/18 14:30 Blood Culture - Preliminary Blood NO GROWTH AFTER 48 HOURS 07/01/18 18:40 Urine Culture - Final Urine Random No Growth (<1,000 CFU/ML) Lab Studies 07/05/18 07/05/1807/04/19 Range/Units 06:00 06:00 20:08 WBC 6.8 D (4.5-11.0) 10^3/uL RBC 3.77 (3.5-6.1) 10^6/uL Hgb 11.5 L (14.0-18.0) g/dL Hct 35.4 L (42.0-52.0) % MCV 93.9 (80.0-105.0) fl MCH 30.5 (25.0-35.0) pg MCHC 32.5 (31.0-37.0) g/dl RDW 14.4 (11.5-14.5) % Plt Count 141 (120.0-450.0) 10^3/uL MPV 10.1 (7.0-11.0) fl Neut % (Auto) 70.3 H (50.0-68.0) % Lymph % (Auto) 23.6 (22.0-35.0) % [place] % (Auto) 5.7 (1.0-6.0) % Eos % (Auto) 0.0 L (1.5-5.0) % Baso % (Auto) 0.4 (0.0-3.0) % Lymph # (Auto) 1.6 (1.2-3.4) [place] # (Auto) 0.4 (0.1-0.6) Eos # (Auto) 0.0 (0.0-0.7) Baso # (Auto) 0.03 (0.0-2.0) K/mm3 Absolute Neuts (auto) 4.78 (1.4-6.5) Sodium 142 139 (132-148) mmol/L Potassium 4.5 4.2 (3.6-5.0) mmol/L Chloride 105 99 (98-107) mmol/L Carbon Dioxide 29 29 (21-33) mmol/L Anion Gap 12 16 (10-20) BUN 104 H 118 H (7-21) mg/dL Creatinine 5.2 H 6.0 H (0.8-1.5) mg/dl Est GFR ( Amer) 14 12 Est GFR (Non-Af Amer) 12 10 Random Glucose 133 H 215 H (70-110) mg/dL Calcium 8.3 L 8.4 (8.4-10.5) mg/dL Phosphorus 4.0 (2.5-4.5) mg/dL Magnesium 1.7 (1.7-2.2) mg/dL Total Bilirubin 1.0 (0.2-1.3) mg/dL AST 74 H D (17-59) U/L ALT 62 H (7-56) U/L Alkaline Phosphatase 79 (38-126) U/L Myoglobin (<=95) mcg/L Total Protein 7.0 (5.8-8.3) g/dL Albumin 3.2 (3.0-4.8) g/dL Globulin 3.8 gm/dL Albumin/Globulin Ratio 0.9 L (1.1-1.8) / Range/Units 18:20 WBC (4.5-11.0) 10^3/uL RBC (3.5-6.1) 10^6/uL Hgb (14.0-18.0) g/dL Hct (42.0-52.0) % MCV (80.0-105.0) fl MCH (25.0-35.0) pg MCHC (31.0-37.0) g/dl RDW (11.5-14.5) % Plt Count (120.0-450.0) 10^3/uL MPV (7.0-11.0) fl Neut % (Auto) (50.0-68.0) % Lymph % (Auto) (22.0-35.0) % [place] % (Auto) (1.0-6.0) % Eos % (Auto) (1.5-5.0) % Baso % (Auto) (0.0-3.0) % Lymph # (Auto) (1.2-3.4) [place] # (Auto) (0.1-0.6) Eos # (Auto) (0.0-0.7) Baso # (Auto) (0.0-2.0) K/mm3 Absolute Neuts (auto) (1.4-6.5) Sodium (132-148) mmol/L Potassium (3.6-5.0) mmol/L Chloride (98-107) mmol/L Carbon Dioxide (21-33) mmol/L Anion Gap (10-20) BUN (7-21) mg/dL Creatinine (0.8-1.5) mg/dl Est GFR ( Amer) Est GFR (Non-Af Amer) Random Glucose (70-110) mg/dL Calcium (8.4-10.5) mg/dL Phosphorus (2.5-4.5) mg/dL Magnesium (1.7-2.2) mg/dL Total Bilirubin (0.2-1.3) mg/dL AST (17-59) U/L ALT (7-56) U/L Alkaline Phosphatase (38-126) U/L Myoglobin >8750 H (<=95) mcg/L Total Protein (5.8-8.3) g/dL Albumin (3.0-4.8) g/dL Globulin gm/dL Albumin/Globulin Ratio (1.1-1.8) Laboratory Results - last 24 hr 07/01/18 07/04/18 07/05/18 18:20 20:08 06:00 WBC 6.8 D RBC 3.77 Hgb 11.5 L Hct 35.4 L MCV 93.9 MCH 30.5 MCHC 32.5 RDW 14.4 Plt Count 141 MPV 10.1 Neut % (Auto) 70.3 H Lymph % (Auto) 23.6 [place] % (Auto) 5.7 Eos % (Auto) 0.0 L Baso % (Auto) 0.4 Lymph # (Auto) 1.6 [place] # (Auto) 0.4 Eos # (Auto) 0.0 Baso # (Auto) 0.03 Absolute Neuts (auto) 4.78 Sodium 139 Potassium 4.2 Chloride 99 Carbon Dioxide 29 Anion Gap 16 BUN 118 H Creatinine 6.0 H Est GFR ( Amer) 12 Est GFR (Non-Af Amer) 10 Random Glucose 215 H Calcium 8.4 Phosphorus Magnesium Total Bilirubin AST ALT Alkaline Phosphatase Myoglobin >8750 H Total Protein Albumin Globulin Albumin/Globulin Ratio 07/05/18 06:00 WBC RBC Hgb Hct MCV MCH MCHC RDW Plt Count MPV Neut % (Auto) Lymph % (Auto) [place] % (Auto) Eos % (Auto) Baso % (Auto) Lymph # (Auto) [place] # (Auto) Eos # (Auto) Baso # (Auto) Absolute Neuts (auto) Sodium 142 Potassium 4.5 Chloride 105 Carbon Dioxide 29 Anion Gap 12 BUN 104 H Creatinine 5.2 H Est GFR ( Amer) 14 Est GFR (Non-Af Amer) 12 Random Glucose 133 H Calcium 8.3 L Phosphorus 4.0 Magnesium 1.7 Total Bilirubin 1.0 AST 74 H D ALT 62 H Alkaline Phosphatase 79 Myoglobin Total Protein 7.0 Albumin 3.2 Globulin 3.8 Albumin/Globulin Ratio 0.9 L Critical Care Progress Note - Nutrition Nutrition: Nutrition Category Date Time Status Liquid Diet [DIET] Diets 07/03/18 Lunch Ordered Attending/Attestation - Attestation I have personally seen and examined this patient.: Yes I have fully participated in the care of the patient.: Yes I have reviewed all pertinent clinical information: Yes Notes (Text): 07/05/18 14:03 hemodynamically and respiratory stable, suitting in the chair, aaox 3, protecting airways. not in respiratory or otherwise distress. ok to downgrade to [facility] ccm time 40 min
[2018-07-05] MEDS: Piperacillin/Tazobact 3.375 gm 100 ML IVPB SCH (09:57)
[2018-07-05] MEDS ORDERED: Barium Sulfate Susp 2.1% w/v, 2.0% w/w 450 mL Bottle PO ONE (10:19)
--- NOTE | 2018-07-05 10:33 | CP.PCM.PCO ---
Addendum Addendum: 07/05/18 10:32 attempted to speak with pt, pt is deeply sleeping, discussed with RN, no acute issues, chronic depression no agitation, no aggression will f/u today vs tomorrow
--- NOTE | 2018-07-05 10:59 | CP.PCM.PN ---
Subjective - Date & Time of Evaluation Date of Evaluation: 07/05/18 Time of Evaluation: 10:00 - Subjective Subjective: General Surgery Pt seen and examined. Says he is having mild pain. No ostomy function yet. Afebrile. Depressed, continues to voice his unhappiness with his illnesses both acute and chronic. Objective - Vital Signs/Intake and Output Vital Signs (last 24 hours): Temp Pulse Resp BP Pulse Ox 97.9 F 81 18 152/74 H 93 L 07/05/18 06:03 07/05/18 06:03 07/05/18 06:03 07/05/18 09:57 07/05/18 06:03 Intake and Output: 07/05/18 07/05/18 06:59 18:59 Intake Total 1835 Output Total 3530 Balance -1695 - Medications Medications: Current Medications Amlodipine Besylate (Norvasc) 10 mg PO DAILY [facility] Last Admin: 07/05/18 09:57 Dose: 10 mg Famotidine (Pepcid) 20 mg PO 1000,2200 SANTINO Last Admin: 07/05/18 09:56 Dose: 20 mg Hydralazine HCl (Apresoline) 10 mg PO QID PRN PRN Reason: For SBP>160 Piperacillin Sod/Tazobactam Sod (Zosyn 3.375 In Ns 100ml) 100 mls @ 25 mls/hr IVPB Q12 SANTINO; Protocol Stop: 07/11/18 10:01 Last Admin: 07/05/18 09:57 Dose: 25 mls/hr Morphine Sulfate (Morphine) 2 mg IVP Q4H PRN PRN Reason: Pain, severe (8-10) Last Admin: 07/05/18 02:30 Dose: 2 mg Zaleplon (Sonata) 5 mg PO HS PRN PRN Reason: Insomnia Last Admin: 07/04/18 23:20 Dose: 5 mg - Labs Labs: 07/05/18 06:00 07/05/18 06:00 PT 18.2 SECONDS (9.4-12.5) H 07/01/18 08:50 INR 1.61 07/01/18 08:50 APTT 52.2 Seconds (26.9-38.3) H 07/01/18 08:50 - Constitutional Appears: Non-toxic, No Acute Distress - Head Exam Head Exam: ATRAUMATIC, NORMOCEPHALIC - Eye Exam Eye Exam: EOMI. absent: Scleral icterus - Respiratory Exam Respiratory Exam: NORMAL BREATHING PATTERN. absent: Respiratory Distress - GI/Abdominal Exam GI & Abdominal Exam: Distended (tympanic), Soft, Tenderness (mild over hernia on L side). absent: Firm, Guarding, Rigid, Rebound Additional comments: midline scar New erythema over L ventral hernia ostomy pink - Neurological Exam Neurological Exam: Alert, Awake, Oriented x3 - Skin Skin Exam: Dry, Warm Assessment and Plan - Assessment and Plan (Free Text) Assessment: 52M with incarcerated ventral hernia, crohns disease, Susac syndrome Plan: Cr slowly improving CT abd pelvis scan with gastrograffin contrast Abx per Medical team Monitor for Bowel function No plan for immediate surgery unless acutely worsening. D/W Dr. Bipin Shook PGY4
--- NOTE | 2018-07-05 12:29 | CP.PCM.PN ---
<Fede Gaston - Last Filed: 07/05/18 14:50> Subjective - Date & Time of Evaluation Date of Evaluation: 07/05/18 Time of Evaluation: 07:15 - Subjective Subjective: Infectious disease progress note: Patient seen and examined at bedside. No acute events overnight.Denies any abd pain, n/v. No fevers. No other complaints. 12 point ROS performed and negative unless stated above. Objective - Vital Signs/Intake and Output Vital Signs (last 24 hours): Temp Pulse Resp BP Pulse Ox 97.9 F 75 17 158/85 H 94 L 07/05/18 08:00 07/05/18 10:50 07/05/18 10:50 07/05/18 10:03 07/05/18 10:50 Intake and Output: 07/05/18 07/05/18 06:59 18:59 Intake Total 1835 Output Total 3530 Balance -1695 - Medications Medications: Current Medications Amlodipine Besylate (Norvasc) 10 mg PO DAILY [facility] Last Admin: 07/05/18 09:57 Dose: 10 mg Famotidine (Pepcid) 20 mg PO 1000,2200 [facility] Last Admin: 07/05/18 09:56 Dose: 20 mg Hydralazine HCl (Apresoline) 10 mg PO QID PRN PRN Reason: For SBP>160 Piperacillin Sod/Tazobactam Sod (Zosyn 3.375 In Ns 100ml) 100 mls @ 25 mls/hr IVPB Q12 [facility]; Protocol Stop: 07/11/18 10:01 Last Admin: 07/05/18 09:57 Dose: 25 mls/hr Morphine Sulfate (Morphine) 2 mg IVP Q4H PRN PRN Reason: Pain, severe (8-10) Last Admin: 07/05/18 02:30 Dose: 2 mg Zaleplon (Sonata) 5 mg PO HS PRN PRN Reason: Insomnia Last Admin: 07/04/18 23:20 Dose: 5 mg - Labs Labs: 07/05/18 06:00 07/05/18 06:00 PT 18.2 SECONDS (9.4-12.5) H 07/01/18 08:50 INR 1.61 07/01/18 08:50 APTT 52.2 Seconds (26.9-38.3) H 07/01/18 08:50 - Constitutional Appears: No Acute Distress - Eye Exam Eye Exam: EOMI - Respiratory Exam Respiratory Exam: Clear to Ausculation Bilateral. absent: Rales, Wheezes - Cardiovascular Exam Cardiovascular Exam: REGULAR RHYTHM, +S1, +S2 - GI/Abdominal Exam GI & Abdominal Exam: Soft. absent: Distended, Tenderness Additional comments: No cellulites around ostomy - Extremities Exam Extremities Exam: absent: Calf Tenderness - Neurological Exam Neurological Exam: Alert, Awake Assessment and Plan - Assessment and Plan (Free Text) Assessment: Severe sepsis secondary to incarcerated hernia with small bowel obstruction and abdominal wall cellulitis Blood culture PNA FISH showed coag negative staph bacteremia likely a conta mination Acute kidney injury, improving Metabolic acidosis Crohn's disease Susac syndrome Hypogammaglobulinemia Transaminitis Rhabdomyolysis, improving Continue with Zosyn day 4 F/u CT abd pelvis - if CT is negative he can be d/c with Augmentin 875mg PO BID x 5 days Follow-up septic work-up - coag negative staph bacteremia likely a contamination x 1 bottle, repeat cx neg F/u echo - neg for vegetations Follow-up nephrology, surgery, and cardiology recommendations Continue to monitor for any changes Case and plan to be reviewed and discussed with Dr. Clay <Ned Clay - Last Filed: 07/05/18 21:34> Objective - Vital Signs/Intake and Output Vital Signs (last 24 hours): Temp Pulse Resp BP Pulse Ox 98.3 F 83 20 156/81 H 96 07/05/18 18:11 07/05/18 18:11 07/05/18 18:11 07/05/18 18:11 07/05/18 13:40 Intake and Output: 07/05/18 07/06/18 18:59 06:59 Intake Total 550 Output Total 700 Balance -150 - Medications Medications: Current Medications Amlodipine Besylate (Norvasc) 10 mg PO DAILY [facility] Last Admin: 07/05/18 09:57 Dose: 10 mg Famotidine (Pepcid) 20 mg PO 1000,2200 [facility] Last Admin: 07/05/18 09:56 Dose: 20 mg Hydralazine HCl (Apresoline) 10 mg PO QID PRN PRN Reason: For SBP>160 Piperacillin Sod/Tazobactam Sod (Zosyn 3.375 In Ns 100ml) 100 mls @ 25 mls/hr IVPB Q12 [facility]; Protocol Stop: 07/11/18 10:01 Last Admin: 07/05/18 09:57 Dose: 25 mls/hr Metronidazole (Flagyl) 500 mg in 100 mls @ 100 mls/hr IVPB Q8 [facility]; Protocol Morphine Sulfate (Morphine) 2 mg IVP Q4H PRN PRN Reason: Pain, severe (8-10) Last Admin: 07/05/18 17:27 Dose: 2 mg Prednisone (Prednisone Tab) 5 mg PO DAILY [facility] Zaleplon (Sonata) 5 mg PO HS PRN PRN Reason: Insomnia Last Admin: 07/04/18 23:20 Dose: 5 mg - Labs Labs: 07/05/18 06:00 07/05/18 06:00 PT 18.2 SECONDS (9.4-12.5) H 07/01/18 08:50 INR 1.61 07/01/18 08:50 APTT 52.2 Seconds (26.9-38.3) H 07/01/18 08:50 Attending/Attestation - Attestation I have personally seen and examined this patient.: Yes I have fully participated in the care of the patient.: Yes I have reviewed all pertinent clinical information, including history, physical exam and plan: Yes
--- NOTE | 2018-07-05 12:35 | PN ---
DATE: 07/05/2018 REASON FOR CONSULTATION AND FOLLOWUP: Cardiac evaluation and syncope. SUBJECTIVE: The patient denies chest pain, shortness of breath, or palpitations. OBJECTIVE: GENERAL: Not in apparent distress. VITAL SIGNS: Temperature afebrile, heart rate 81, blood pressure 116/79. HEENT: PERRLA. Extraocular muscles intact. NECK: Supple. No carotid bruits or thyromegaly. CHEST: Clear to auscultation. HEART: S1 and S2 regular. ABDOMEN: Soft. EXTREMITIES: Clubbing and cyanosis negative. LABORATORY DATA: Blood work as follows; WBC 6.8, hemoglobin 11, hematocrit 35.4, platelet count 141. Chemistry shows sodium 142, potassium 4.5, chloride 105, carbon dioxide 29, anion gap of 12, BUN of 104, creatinine 5.2. IMPRESSION: A 52-year-old male with past medical history significant for palpitation, history of Crohn's disease, extensive abdominal surgery secondary to perforation of bowel and Crohn's disease, status post colostomy, history of coffee-ground emesis. The patient came with acute rhabdomyolysis, CPK 5000, acute kidney injury with creatinine 9.2 and troponin 0.09 and MB 0.2. No evidence of acute myocardial infarction. Elevated troponin is most likely due to rhabdomyolysis. 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 López. The patient had an echocardiography done yesterday that revealed 55% ejection fraction, trace mitral regurgitation, mild tricuspid regurgitation, right ventricular systolic pressure 33. Inferior vena cava is normal. No evidence of thrombus noted. Also, the patient has history of psoriasis. RECOMMENDATIONS: Continue IV fluid. Avoid nephrotoxic medication. For blood pressure, we will start hydralazine and his troponin bump is most likely secondary to acute kidney injury. Continue broad spectrum antibiotic. Monitor electrolyte. Monitor renal function closely. Creatinine is trending down. Admitting creatinine was 9.3 and BUN 124; today's BUN and creatinine 104 and 5.2. Since the patient becomes bradycardic at 53, we will hold the beta-alfredo and continue 10 mg of Norvasc to start today and then hydralazine p.r.n. Avoid nephrotoxic medication. Shea Herndon MD
--- NOTE | 2018-07-05 15:14 | CT ---
Date of service: 07/05/2018 PROCEDURE: CT Abdomen and Pelvis without intravenous contrast HISTORY: incisional hernia; obstipation COMPARISON: 07/01/2018 TECHNIQUE: Without contrast.. Contrast dose: Radiation dose: Total exam DLP = 994.3 mGy-cm. This CT exam was performed using one or more of the following dose reduction techniques: Automated exposure control, adjustment of the mA and/or kV according to patient size, and/or use of iterative reconstruction technique. FINDINGS: LOWER THORAX: Unremarkable. LIVER: Unremarkable. No gross lesion or ductal dilatation. GALLBLADDER AND BILE DUCTS: Unremarkable. PANCREAS: Unremarkable. No gross lesion or ductal dilatation. SPLEEN: Unremarkable. ADRENALS: Unremarkable. No mass. KIDNEYS AND URETERS: There is bilateral perinephric stranding which was not present on the earlier study. This could represent pyelonephritis. Clinical correlation is suggested. VASCULATURE: Unremarkable. No aortic aneurysm. No aortic atherosclerotic calcification or mural plaque present. BOWEL: As seen previously there is a ventral hernia to the left of midline adjacent to the left lower quadrant colostomy. The dilated bowel loop within the hernia sac measures 59 x 93 mm in size. There is persistent dilatation of small bowel loops. APPENDIX: Not visualized PERITONEUM: Unremarkable. No free fluid. No free air. LYMPH NODES: Unremarkable. No enlarged lymph nodes. BLADDER: Gallbladder decompressed by Estrada catheter REPRODUCTIVE: Unremarkable. BONES: No acute fracture. OTHER FINDINGS: None. IMPRESSION: As seen previously there is a ventral hernia to the left of midline adjacent to the left lower quadrant colostomy. The dilated bowel loop within the hernia sac measures 59 x 93 mm in size. There is persistent dilatation of small bowel loops. There is bilateral perinephric stranding which was not present on the earlier study. This could represent pyelonephritis. Clinical correlation is suggested.
[2018-07-05] MEDS ORDERED: NuLYTELY (NACL/NAHCO3/KCL/PEG) 4L PO ONE (16:41)
--- NOTE | 2018-07-05 18:18 | CON ---
DATE: 07/05/2018 I was called to evaluate the patient. HISTORY OF PRESENT ILLNESS: This is a 52-year-old male with a past medical history of Susac syndrome, and the patient had a cerebral angiitis and getting IV gamma globulin with Dr. López. He was found on the ground; brother brought him to the emergency room. Also had a past medical history of Crohn's disease and psoriasis and status post colostomy. The patient is also hard of hearing. He is seen in the ER and Code Sepsis was called. Called to evaluate the patient. PAST MEDICAL HISTORY: As above. SOCIAL HISTORY: Does not smoke; does not drink. PHYSICAL EXAMINATION: HEENT: Normocephalic and atraumatic. NECK: Supple. NEUROLOGIC: Awake, alert, and orientated x3. No aphasia. Cranial nerves II to XII are tested. Pupils reactive. Spontaneous movement of all the extremities noted. Deep tendon reflexes 1+. Both plantars are downgoing. Sensory appears intact. Cerebellar gait deferred. IMPRESSION AND PLAN: A long history of Susac syndrome, Crohn's disease, status post colostomy tube, and neuropathy. Workup in progress. Continue present management. We will follow up. Jose Mora MD
[2018-07-05] MEDS: metroNIDAZOLE IV 500 mg/100 ml 500 MG/100 ML BAG IVPB SCH (23:37)
--- NOTE | 2018-07-06 00:39 | PN ---
DATE: 07/05/2018 SUBJECTIVE: The patient is seen in the ICU. He is lying in bed. He appears comfortable. He is complaining about the IV line in his arm. He is complaining about the Estrada catheter. He denies any abdominal pain. He is in a full liquid diet now. He is passing flatus during colostomy. Colostomy output as such is poor. PHYSICAL EXAMINATION: GENERAL: Obese elderly male, lying in bed. VITAL SIGNS: Blood pressure 156/81, heart rate 83, respiratory rate 18, temperature 98. HEENT: Normocephalic, atraumatic, positive pallor. NECK: Supple, no JVD. LUNGS: Bilateral equal entry, bilateral equal expansion. CARDIAC: S1, S2, regular rate and rhythm. No murmur, no rub. ABDOMEN: Distended, soft. Positive colostomy in the left lower quadrant, multiple scars, nontender. Bowel sounds present. EXTREMITIES: 1+ pitting edema of lower extremity. INTAKE AND OUTPUT: 4000/5930. LABORATORY DATA: WBC 6.8, hemoglobin 11.5, hematocrit 35, platelets 141. Sodium 142, potassium 4.5, chloride 105, CO2 of 29, BUN 104, creatinine 5.2, glucose 133, calcium 8.3, phosphorus 4, magnesium 1.7, AST 74, ALT 62, albumin 3.2. Urine eosinophils negative. Urine creatinine 74. Urine sodium 87. Blood cultures no growth. Urine culture no growth. CT of the abdomen and pelvis, ventral hernia to the left of the midline, left lower lobe colostomy, dilated bowel loops within the hernia sac, persistent dilatation of the small bowel loops, bilateral perinephric stranding. ASSESSMENT AND PLAN 1. Acute kidney injury, acute tubular necrosis secondary to rhabdomyolysis. 2. Incisional hernia, ventral hernia, small bowel obstruction. 3. Prerenal azotemia. 4. Status post hyperkalemia. 5. 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 6. History of hypogammaglobulinemia. 7. History of psoriasis. 8. History of depression. 9. History of Crohn's disease, multiple abdominal surgeries, left lower lobe colostomy. PLAN: 1. Renal parameters improving nicely. 2. Urine studies consistent with ATN. 3. Continue IV fluids with sodium bicarbonate. 4. Advance diet as per Surgery. 5. Monitor electrolytes. 6. Avoid nephrotoxins. 7. Continue current antihypertensives. 8. Continue antibiotics as per ID recommendations. 9. Case discussed with Dr. López at length. Case discussed with ICU nursing staff. More than 35 minutes was spent in the care of this critically ill patient. Cat Rice MD
[2018-07-06] MEDS: Piperacillin/Tazobact 3.375 gm 100 ML IVPB SCH ×2 (00:51→09:40)
[2018-07-06] MEDS: Morphine 2 mg/ml ISec IVP PRN (01:17)
[2018-07-06] MEDS: metroNIDAZOLE IV 500 mg/100 ml 500 MG/100 ML BAG IVPB SCH (05:09)
--- NOTE | 2018-07-06 07:39 | CP.PCM.PN ---
<Fede Gaston - Last Filed: 07/06/18 12:56> Subjective - Date & Time of Evaluation Date of Evaluation: 07/06/18 Time of Evaluation: 09:50 - Subjective Subjective: Infectious disease progress note: Patient seen and examined at bedside. No acute events overnight. C/o of some abd pain. no other complaints. No fevres. 12 point ROS performed and negative unless stated above. Objective - Vital Signs/Intake and Output Vital Signs (last 24 hours): Temp Pulse Resp BP Pulse Ox 98.6 F 83 20 159/80 H 95 07/06/18 06:00 07/06/18 06:00 07/06/18 06:00 07/06/18 06:00 07/06/18 06:00 Intake and Output: 07/06/18 07/06/18 06:59 18:59 Intake Total 660 Output Total 2550 Balance -1890 - Medications Medications: Current Medications Amlodipine Besylate (Norvasc) 10 mg PO DAILY [facility] Last Admin: 07/05/18 09:57 Dose: 10 mg Famotidine (Pepcid) 20 mg PO 1000,2200 [facility] Last Admin: 07/05/18 23:37 Dose: 20 mg Hydralazine HCl (Apresoline) 10 mg PO QID PRN PRN Reason: For SBP>160 Piperacillin Sod/Tazobactam Sod (Zosyn 3.375 In Ns 100ml) 100 mls @ 25 mls/hr IVPB Q12 [facility]; Protocol Stop: 07/11/18 10:01 Last Admin: 07/06/18 00:51 Dose: 25 mls/hr Metronidazole (Flagyl) 500 mg in 100 mls @ 100 mls/hr IVPB Q8 [facility]; Protocol Last Admin: 07/06/18 05:09 Dose: 100 mls/hr Morphine Sulfate (Morphine) 2 mg IVP Q4H PRN PRN Reason: Pain, severe (8-10) Last Admin: 07/06/18 01:17 Dose: 2 mg Prednisone (Prednisone Tab) 5 mg PO DAILY [facility] Zaleplon (Sonata) 5 mg PO HS PRN PRN Reason: Insomnia Last Admin: 07/04/18 23:20 Dose: 5 mg - Labs Labs: 07/05/18 06:00 07/05/18 06:00 PT 18.2 SECONDS (9.4-12.5) H 07/01/18 08:50 INR 1.61 07/01/18 08:50 APTT 52.2 Seconds (26.9-38.3) H 07/01/18 08:50 - Constitutional Appears: No Acute Distress - Head Exam Head Exam: ATRAUMATIC, NORMOCEPHALIC - Eye Exam Eye Exam: EOMI - Respiratory Exam Respiratory Exam: Clear to Ausculation Bilateral. absent: Rales, Rhonchi - Cardiovascular Exam Cardiovascular Exam: REGULAR RHYTHM, +S1, +S2 - GI/Abdominal Exam GI & Abdominal Exam: Soft. absent: Tenderness Additional comments: ostomy in place, - Extremities Exam Extremities Exam: absent: Calf Tenderness, Pedal Edema - Neurological Exam Neurological Exam: Alert, Awake - Psychiatric Exam Psychiatric exam: Normal Mood - Skin Skin Exam: Dry, Warm Assessment and Plan - Assessment and Plan (Free Text) Assessment: Severe sepsis secondary to incarcerated hernia with small bowel obstruction and abdominal wall cellulitis Coag negative staph bacteremia likely a contamination Acute kidney injury, improving Metabolic acidosis Crohn's disease Susac syndrome Hypogammaglobulinemia Transaminitis Rhabdomyolysis, improving Discontinue with Zosyn day 5 F/u CT abd pelvis - Upon discharge can d/c with Augmentin 875mg PO BID x 10 days Follow-up septic work-up - coag negative staph bacteremia likely a contamination x 1 bottle, repeat cx neg F/u echo - neg for vegetations Follow-up nephrology, surgery, and cardiology recommendations Continue to monitor for any changes Case and plan to be reviewed and discussed with Dr. Clay <Ned Clay - Last Filed: 07/06/18 12:59> Objective - Vital Signs/Intake and Output Vital Signs (last 24 hours): Temp Pulse Resp BP Pulse Ox 98.6 F 87 18 148/74 95 07/06/18 12:00 07/06/18 12:00 07/06/18 12:00 07/06/18 12:00 07/06/18 06:00 Intake and Output: 07/06/18 07/06/18 06:59 18:59 Intake Total 660 Output Total 2550 Balance -1890 - Medications Medications: Current Medications Amlodipine Besylate (Norvasc) 10 mg PO DAILY [facility] Last Admin: 05/23/19 09:40 Dose: 10 mg Famotidine (Pepcid) 20 mg PO 1000,2200 [facility] Last Admin: 07/06/18 09:40 Dose: 20 mg Hydralazine HCl (Apresoline) 10 mg PO QID PRN PRN Reason: For SBP>160 Morphine Sulfate (Morphine) 2 mg IVP Q4H PRN PRN Reason: Pain, severe (8-10) Last Admin: 07/06/18 01:17 Dose: 2 mg Prednisone (Prednisone Tab) 5 mg PO DAILY [facility] Last Admin: 07/06/18 09:40 Dose: 5 mg Zaleplon (Sonata) 5 mg PO HS PRN PRN Reason: Insomnia Last Admin: 07/04/18 23:20 Dose: 5 mg - Labs Labs: 07/06/18 11:19 07/06/18 11:19 PT 18.2 SECONDS (9.4-12.5) H 07/01/18 08:50 INR 1.61 07/01/18 08:50 APTT 52.2 Seconds (26.9-38.3) H 07/01/18 08:50 Attending/Attestation - Attestation I have personally seen and examined this patient.: Yes I have fully participated in the care of the patient.: Yes I have reviewed all pertinent clinical information, including history, physical exam and plan: Yes
--- NOTE | 2018-07-06 08:15 | CP.PCM.PN ---
Subjective - Date & Time of Evaluation Date of Evaluation: 07/06/18 Time of Evaluation: 08:12 - Subjective Subjective: SURGERY NOTE FOR DR. ZAMUDIO 52M seen and examined at bedside. Patient doing well, states he is thirsty. Pain around ostomy site is same and mild. Patient had some output from ostomy yesterday evening. Stoma was probed this morning and some more stool was expressed. Objective - Vital Signs/Intake and Output Vital Signs (last 24 hours): Temp Pulse Resp BP Pulse Ox 98.6 F 83 20 159/80 H 95 07/06/18 06:00 07/06/18 06:00 07/06/18 06:00 07/06/18 06:00 07/06/18 06:00 Intake and Output: 07/06/18 07/06/18 06:59 18:59 Intake Total 660 Output Total 2550 Balance -1890 - Medications Medications: Current Medications Amlodipine Besylate (Norvasc) 10 mg PO DAILY [facility] Last Admin: 07/05/18 09:57 Dose: 10 mg Famotidine (Pepcid) 20 mg PO 1000,2200 [facility] Last Admin: 07/05/18 23:37 Dose: 20 mg Hydralazine HCl (Apresoline) 10 mg PO QID PRN PRN Reason: For SBP>160 Piperacillin Sod/Tazobactam Sod (Zosyn 3.375 In Ns 100ml) 100 mls @ 25 mls/hr IVPB Q12 [facility]; Protocol Stop: 07/11/18 10:01 Last Admin: 07/06/18 00:51 Dose: 25 mls/hr Metronidazole (Flagyl) 500 mg in 100 mls @ 100 mls/hr IVPB Q8 [facility]; Protocol Last Admin: 07/06/18 05:09 Dose: 100 mls/hr Morphine Sulfate (Morphine) 2 mg IVP Q4H PRN PRN Reason: Pain, severe (8-10) Last Admin: 07/06/18 01:17 Dose: 2 mg Prednisone (Prednisone Tab) 5 mg PO DAILY [facility] Zaleplon (Sonata) 5 mg PO HS PRN PRN Reason: Insomnia Last Admin: 07/04/18 23:20 Dose: 5 mg - Labs Labs: 07/05/18 06:00 07/05/18 06:00 PT 18.2 SECONDS (9.4-12.5) H 07/01/18 08:50 INR 1.61 07/01/18 08:50 APTT 52.2 Seconds (26.9-38.3) H 07/01/18 08:50 - Constitutional Appears: Non-toxic, No Acute Distress - ENT Exam ENT Exam: Mucous Membranes Moist - Respiratory Exam Respiratory Exam: Clear to Ausculation Bilateral, NORMAL BREATHING PATTERN - Cardiovascular Exam Cardiovascular Exam: REGULAR RHYTHM, +S1, +S2 - GI/Abdominal Exam GI & Abdominal Exam: Soft, Tenderness (mild on hernia). absent: Distended, Firm, Guarding, Rigid, Rebound Additional comments: stoma pink and partially patent. hernia with mild erythema - Neurological Exam Neurological Exam: Alert, Awake Assessment and Plan - Assessment and Plan (Free Text) Assessment: 52M with incarcerated ventral hernia (improving), crohns disease, Susac syndrome Plan: continue liquid diet pain control continue to monitor for further ostomy output continue antibiotics, flagyl for crohns flare Low dose steroid for crohns flare Further recs discuss with Dr. Bipin Christensen, PGY3
--- NOTE | 2018-07-06 08:58 | CP.PCM.PN ---
<TyrelRoger - Last Filed: 07/06/18 08:49> Subjective - Date & Time of Evaluation Date of Evaluation: 07/05/18 Time of Evaluation: 08:49 - Subjective Subjective: Heme/onc and medicine progress note Tyrel PGY - 2 Patient seen and examined at bedside with no acute overnight events besides agitation. Patient was seen by surgical team, with no acute intervention at this time. Patient continues to be perplexed and upset at his medical condition. Objective - Vital Signs/Intake and Output Vital Signs (last 24 hours): Temp Pulse Resp BP Pulse Ox 98.6 F 83 20 159/80 H 95 07/06/18 06:00 07/06/18 06:00 07/06/18 06:00 07/06/18 06:00 07/06/18 06:00 Intake and Output: 07/06/18 07/06/18 06:59 18:59 Intake Total 660 Output Total 2550 Balance -1890 - Medications Medications: Current Medications Amlodipine Besylate (Norvasc) 10 mg PO DAILY [facility] Last Admin: 07/05/18 09:57 Dose: 10 mg Famotidine (Pepcid) 20 mg PO 1000,2200 [facility] Last Admin: 07/05/18 23:37 Dose: 20 mg Hydralazine HCl (Apresoline) 10 mg PO QID PRN PRN Reason: For SBP>160 Piperacillin Sod/Tazobactam Sod (Zosyn 3.375 In Ns 100ml) 100 mls @ 25 mls/hr IVPB Q12 [facility]; Protocol Stop: 07/11/18 10:01 Last Admin: 07/06/18 00:51 Dose: 25 mls/hr Metronidazole (Flagyl) 500 mg in 100 mls @ 100 mls/hr IVPB Q8 [facility]; Protocol Last Admin: 07/06/18 05:09 Dose: 100 mls/hr Morphine Sulfate (Morphine) 2 mg IVP Q4H PRN PRN Reason: Pain, severe (8-10) Last Admin: 07/06/18 01:17 Dose: 2 mg Prednisone (Prednisone Tab) 5 mg PO DAILY [facility] Zaleplon (Sonata) 5 mg PO HS PRN PRN Reason: Insomnia Last Admin: 07/04/18 23:20 Dose: 5 mg - Labs Labs: 07/05/18 06:00 07/05/18 06:00 PT 18.2 SECONDS (9.4-12.5) H 07/01/18 08:50 INR 1.61 07/01/18 08:50 APTT 52.2 Seconds (26.9-38.3) H 07/01/18 08:50 - Constitutional Appears: Well - Head Exam Head Exam: ATRAUMATIC, NORMAL INSPECTION, NORMOCEPHALIC - Eye Exam Eye Exam: EOMI, Normal appearance, PERRL Pupil Exam: NORMAL ACCOMODATION, PERRL - ENT Exam ENT Exam: Mucous Membranes Moist, Normal Exam - Neck Exam Neck Exam: Full ROM, Normal Inspection. absent: Lymphadenopathy - Respiratory Exam Respiratory Exam: Clear to Ausculation Bilateral, NORMAL BREATHING PATTERN - Cardiovascular Exam Cardiovascular Exam: REGULAR RHYTHM, +S1, +S2. absent: Murmur - GI/Abdominal Exam GI & Abdominal Exam: Soft, Normal Bowel Sounds. absent: Tenderness - Extremities Exam Extremities Exam: Full ROM, Normal Capillary Refill, Normal Inspection. absent: Joint Swelling, Pedal Edema - Back Exam Back Exam: NORMAL INSPECTION - Neurological Exam Neurological Exam: Alert, Awake, CN II-XII Intact, Normal Gait, Oriented x3 - Psychiatric Exam Psychiatric exam: Normal Affect, Normal Mood - Skin Skin Exam: Dry, Intact, Normal Color, Warm Assessment and Plan - Assessment and Plan (Free Text) Assessment: 52 M with pertinent history of Susac and Crohn's under ICU management for severe rhabdomyolysis and SETH. Patient has a colostomy bag from active colitis and has not been able to have a reversal. With regards to his active assessments, patient's SETH is likely 2/2 ATN from rhabdomyolysis. Rhabdo is improving, SETH is improving. Per discussion with rn rehab Dr. Rice, the ATN will take some time to resolve. Patient's I/O are improving. With respect to sepsis, patient was afebrile overnight; one tube of blood showed coag neg staphylococcus, but repeat blood cultures are negative. We will watch patient closely. Plan - Continue with IVF; discontinue bicarb drip - Continue with Zosyn for sepsis - Continue steroids, solu-medrol - Continue with pepcid for GI ppx - No current surgical intervention - No new neuro or psych recommendations re: neuropathy or SI/HI - Per ID, patient could be discharged with PO ABx if CT A/P was negative - however, in light of new findings, will await furfther recommendations - Nephro input noted; will continue IVF as noted above <Levi López P - Last Filed: 07/06/18 21:15> Objective - Vital Signs/Intake and Output Vital Signs (last 24 hours): Temp Pulse Resp BP Pulse Ox 97.9 F 94 H 18 123/83 95 07/06/18 17:41 07/06/18 18:00 07/06/18 17:41 07/06/18 17:41 07/06/18 06:00 Intake and Output: 07/06/18 07/07/18 18:59 06:59 Intake Total 1080 Output Total 2800 Balance -1720 - Medications Medications: Current Medications Amlodipine Besylate (Norvasc) 10 mg PO DAILY [facility] Last Admin: 07/06/18 09:40 Dose: 10 mg Amoxicillin/Clavulanate Potassium (Augmentin 875 Mg-125 Mg Tab) 1 tab PO Q12 [facility]; Protocol Bupropion HCl (Wellbutrin) 75 mg PO DAILY [facility] Famotidine (Pepcid) 20 mg PO 1000,2200 [facility] Last Admin: 07/06/18 09:40 Dose: 20 mg Hydralazine HCl (Apresoline) 10 mg PO QID PRN PRN Reason: For SBP>160 Morphine Sulfate (Morphine) 2 mg IVP Q4H PRN PRN Reason: Pain, severe (8-10) Last Admin: 07/06/18 01:17 Dose: 2 mg Pantoprazole Sodium (Protonix Inj) 40 mg IVP Q12 [facility] Prednisone (Prednisone Tab) 5 mg PO DAILY [facility] Last Admin: 07/06/18 09:40 Dose: 5 mg Zaleplon (Sonata) 5 mg PO HS PRN PRN Reason: Insomnia Last Admin: 07/04/18 23:20 Dose: 5 mg - Labs Labs: 07/06/18 11:19 07/06/18 11:19 PT 18.2 SECONDS (9.4-12.5) H 07/01/18 08:50 INR 1.61 07/01/18 08:50 APTT 52.2 Seconds (26.9-38.3) H 07/01/18 08:50 Attending/Attestation - Attestation I have personally seen and examined this patient.: Yes I have fully participated in the care of the patient.: Yes I have reviewed all pertinent clinical information, including history, physical exam and plan: Yes
--- NOTE | 2018-07-06 10:13 | CP.PCM.PN ---
Subjective - Date & Time of Evaluation Date of Evaluation: 07/06/18 Time of Evaluation: 06:45 - Subjective Subjective: Awake, alert, no distress, wanted to eat Reason for consultation and follow up: Cardiac evaluation of syncopal episode, history of Crohn's disease, extensive abdominal surgery Seen and examined by me and Dr. Herndon Objective - Vital Signs/Intake and Output Vital Signs (last 24 hours): Temp Pulse Resp BP Pulse Ox 98.6 F 83 20 132/78 95 07/06/18 06:00 07/06/18 06:00 07/06/18 06:00 07/06/18 09:40 07/06/18 06:00 Intake and Output: 07/06/18 07/06/18 06:59 18:59 Intake Total 660 Output Total 2550 Balance -1890 - Medications Medications: Current Medications Amlodipine Besylate (Norvasc) 10 mg PO DAILY [facility] Last Admin: 07/06/18 09:40 Dose: 10 mg Famotidine (Pepcid) 20 mg PO 1000,2200 [facility] Last Admin: 07/06/18 09:40 Dose: 20 mg Hydralazine HCl (Apresoline) 10 mg PO QID PRN PRN Reason: For SBP>160 Piperacillin Sod/Tazobactam Sod (Zosyn 3.375 In Ns 100ml) 100 mls @ 25 mls/hr IVPB Q12 [facility]; Protocol Stop: 07/11/18 10:01 Last Admin: 07/06/18 09:40 Dose: 25 mls/hr Metronidazole (Flagyl) 500 mg in 100 mls @ 100 mls/hr IVPB Q8 [facility]; Protocol Last Admin: 07/06/18 05:09 Dose: 100 mls/hr Morphine Sulfate (Morphine) 2 mg IVP Q4H PRN PRN Reason: Pain, severe (8-10) Last Admin: 07/06/18 01:17 Dose: 2 mg Prednisone (Prednisone Tab) 5 mg PO DAILY [facility] Last Admin: 07/06/18 09:40 Dose: 5 mg Zaleplon (Sonata) 5 mg PO HS PRN PRN Reason: Insomnia Last Admin: 07/04/18 23:20 Dose: 5 mg - Labs Labs: 07/05/18 06:00 07/05/18 06:00 PT 18.2 SECONDS (9.4-12.5) H 05/18/19 08:50 INR 1.61 07/01/18 08:50 APTT 52.2 Seconds (26.9-38.3) H 07/01/18 08:50 - Constitutional Appears: Non-toxic, No Acute Distress - Head Exam Head Exam: NORMAL INSPECTION, NORMOCEPHALIC - Eye Exam Eye Exam: Normal appearance Pupil Exam: NORMAL ACCOMODATION - ENT Exam ENT Exam: Mucous Membranes Dry - Respiratory Exam Respiratory Exam: Decreased Breath Sounds, Clear to Ausculation Bilateral, NORMAL BREATHING PATTERN - Cardiovascular Exam Cardiovascular Exam: REGULAR RHYTHM, +S1, +S2 Additional comments: Telemetry 80's NSR - GI/Abdominal Exam GI & Abdominal Exam: Soft, Normal Bowel Sounds Additional comments: colostomy - Exam Additional comments: maguire catheter - Extremities Exam Extremities Exam: Full ROM, Normal Capillary Refill Additional comments: left upper arm port - Neurological Exam Neurological Exam: Alert, Awake - Psychiatric Exam Psychiatric exam: Normal Affect, Normal Mood - Skin Skin Exam: Dry, Normal Color, Warm Assessment and Plan - Assessment and Plan (Free Text) Assessment: A 52 year old male who came in the ER due to complaints of generalized weakn ess. Brother found him on the floor and been there for two days too weak to get up. 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 Denies chest pain or shortness of breath. Troponin elevated due rhabdomyolysis and acute kidney injury. Rule out acute myocardial infarction. Echo done and showed LVEF 55%, trace MR, mild TR, RVSP 33mmHg, IVC normal. Bradycardia, hold betablocker. IV hydration. Positive blood culture. ID on consult. On IV antibiotics. CK level and creatinine trending down. No surgical intervention at this time per surgery. GI and Renal and Surgery on consult. Plan: No distress, wanted to eat Blood pressure stable Heart rate stable Cardiac status stable On Norvasc 10 mg daily, Prednisone 5 mg daily Continue current treatment Continue current medications Avoid nephrotoxic medications Closely monitor renal function Continue IV hydration. ID on consult Continue IV antibiotics. Will follow up Plan and treatment discussed with Dr. Herndon
[2018-07-06 11:28] LABS: HEMOGLOBIN 12.2 g/dL (14.0-18.0); MEAN CELL VOLUME 93.7 fl (80.0-105.0); MEAN CORPUSCULAR HEMOGLOBIN 30.9 pg (25.0-35.0); MEAN PLATELET VOLUME 9.8 fl (7.0-11.0); RBC 3.95 10^6/uL (3.5-6.1); RED CELL DISTRIBUTION WIDTH 14.2 % (11.5-14.5); WHITE BLOOD COUNT 9.7 10^3/uL (4.5-11.0)
[2018-07-06 11:38] LABS: ALB/GLOB RATIO 0.8 (1.1-1.8); ALBUMIN 3.2 g/dL (3.0-4.8); CALCIUM 8.3 mg/dL (8.4-10.5)
--- NOTE | 2018-07-06 13:36 | CP.PCM.PN ---
<Robin Johnson - Last Filed: 07/06/18 13:32> Subjective - Date & Time of Evaluation Date of Evaluation: 07/06/18 Time of Evaluation: 08:50 - Subjective Subjective: PGY-4 GI Fellow Prog Note Pt lying in bed when seen this AM. Reports ongoing frustration with his chronic illnesses, but states he is stable from yesterday with continued stool output from ostomy. 5 point ROS negative other than stated above Objective - Vital Signs/Intake and Output Vital Signs (last 24 hours): Temp Pulse Resp BP Pulse Ox 98.6 F 87 18 148/74 95 07/06/18 12:00 07/06/18 12:00 07/06/18 12:00 07/06/18 12:00 07/06/18 06:00 Intake and Output: 07/06/18 07/06/18 06:59 18:59 Intake Total 660 Output Total 2550 Balance -1890 - Medications Medications: Current Medications Amlodipine Besylate (Norvasc) 10 mg PO DAILY [facility] Last Admin: 07/06/18 09:40 Dose: 10 mg Amoxicillin/Clavulanate Potassium (Augmentin 875 Mg-125 Mg Tab) 1 tab PO Q12 [facility]; Protocol Famotidine (Pepcid) 20 mg PO 1000,2200 [facility] Last Admin: 07/06/18 09:40 Dose: 20 mg Hydralazine HCl (Apresoline) 10 mg PO QID PRN PRN Reason: For SBP>160 Morphine Sulfate (Morphine) 2 mg IVP Q4H PRN PRN Reason: Pain, severe (8-10) Last Admin: 07/06/18 01:17 Dose: 2 mg Prednisone (Prednisone Tab) 5 mg PO DAILY [facility] Last Admin: 07/06/18 09:40 Dose: 5 mg Zaleplon (Sonata) 5 mg PO HS PRN PRN Reason: Insomnia Last Admin: 07/04/18 23:20 Dose: 5 mg - Labs Labs: 07/06/18 11:19 07/06/18 11:19 PT 18.2 SECONDS (9.4-12.5) H 07/01/18 08:50 INR 1.61 07/01/18 08:50 APTT 52.2 Seconds (26.9-38.3) H 07/01/18 08:50 - Constitutional Appears: No Acute Distress, Chronically Ill - Head Exam Head Exam: ATRAUMATIC, NORMAL INSPECTION - Eye Exam Eye Exam: EOMI. absent: Scleral icterus - ENT Exam ENT Exam: Mucous Membranes Dry. absent: Mucous Membranes Moist - Respiratory Exam Respiratory Exam: NORMAL BREATHING PATTERN. absent: Accessory Muscle Use - GI/Abdominal Exam GI & Abdominal Exam: Distended, Soft, Tenderness, Hypoactive Bowel Sounds. 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 Active treatment of acute renal failure and sepsis 2/2 bowel obstruction due to ventral incarcerated hernia. Plan: - Surgery managing diet, conservative management - Low suspicion for Crohn's flare - Continue bowel regimen - Supportive care with pain control, IVFs Pt seen and examined with Dr. Okeefe; please see attestation for further recs/changes <Eric Okeefe V - Last Filed: 07/06/18 19:49> Objective - Vital Signs/Intake and Output Vital Signs (last 24 hours): Temp Pulse Resp BP Pulse Ox 97.9 F 96 H 18 123/83 95 07/06/18 17:41 07/06/18 17:41 07/06/18 17:41 07/06/18 17:41 07/06/18 06:00 Intake and Output: 07/06/18 07/07/18 18:59 06:59 Intake Total 1080 Output Total 2800 Balance -1720 - Medications Medications: Current Medications Amlodipine Besylate (Norvasc) 10 mg PO DAILY [facility] Last Admin: 07/06/18 09:40 Dose: 10 mg Amoxicillin/Clavulanate Potassium (Augmentin 875 Mg-125 Mg Tab) 1 tab PO Q12 [facility]; Protocol Bupropion HCl (Wellbutrin) 75 mg PO DAILY [facility] Famotidine (Pepcid) 20 mg PO 1000,2200 [facility] Last Admin: 07/06/18 09:40 Dose: 20 mg Hydralazine HCl (Apresoline) 10 mg PO QID PRN PRN Reason: For SBP>160 Morphine Sulfate (Morphine) 2 mg IVP Q4H PRN PRN Reason: Pain, severe (8-10) Last Admin: 07/06/18 01:17 Dose: 2 mg Prednisone (Prednisone Tab) 5 mg PO DAILY [facility] Last Admin: 07/06/18 09:40 Dose: 5 mg Zaleplon (Sonata) 5 mg PO HS PRN PRN Reason: Insomnia Last Admin: 07/04/18 23:20 Dose: 5 mg - Labs Labs: 07/06/18 11:19 07/06/18 11:19 PT 18.2 SECONDS (9.4-12.5) H 07/01/18 08:50 INR 1.61 07/01/18 08:50 APTT 52.2 Seconds (26.9-38.3) H 07/01/18 08:50 Attending/Attestation - Attestation I have personally seen and examined this patient.: Yes I have fully participated in the care of the patient.: Yes I have reviewed all pertinent clinical information, including history, physical exam and plan: Yes Notes (Text): This is an addendum to the GI progress report dictated by the fellow. The patient was seen and evaluated along with the fellow earlier. The incarcerated hernia area inflammatory changes appears to be improving. Clinically this is not suggestive of any flareup of Crohn's. Patient has been started on prednison e 5 mg twice daily by surgery. This lower dose will not be effective for Crohn's flareup. If Crohn's flareup is suspected patient need to be placed on higher dose steroid which we do not want to do it now. Management of the incarcerated hernia is as per surgery. On liquid diet Close clinical follow-up 07/06/18 19:48
--- NOTE | 2018-07-06 14:18 | CP.PCM.PCO ---
Additional Comments - Additional Comments Additional Comments: Pt. seen, appears more comfortable, denied abdom. pain. On clear liquids per GI, advance diet per GI. CT pos for dilated loops, ques.pyelonephritis, PO antibx ordered per I.d. Advance diet as per GI. PT rec. CEE Discuss with SW for CEE planning. Will continue to monitor clinical status and follow.
[2018-07-06] MEDS ORDERED: Magnesium Sulfate 1 gm in D5W 1 GM/100 ML BAG IVPB ONE (14:19)
--- NOTE | 2018-07-06 15:32 | PN ---
DATE: 07/06/2018 SUBJECTIVE: The patient was followed up today. The patient was downgraded to the second floor. At the morning time, the patient presented to be sleepy, easily arousable. The patient presented to be depressed and cheerful. The patient reported that he did not sleep well because of the pain. The patient is willing to resume Wellbutrin even though that majority of the time the patient repeating too many medications. At the same time, the patient will continue on Sonata. The patient presented to be depressed, at time hopeless and hopelessness related to multiple medical issues. The patient denied thoughts of killing himself or others. Denied psychotic symptoms. PHYSICAL EXAMINATION: VITAL SIGNS: Reviewed. Temperature 98.6, pulse is 87, blood pressure 148/74, respiration 18, oxygen saturation is 95. MENTAL STATUS EXAMINATION: The patient presented today with sleepy, easily arousable. Mood described as depressed. Affect was cheerful. Mood congruent. Thought process, coherent and goal-directed. Thought content, the patient denied visual, auditory or tactile hallucinations. Denied paranoid ideation. The patient denied thoughts of harming himself or others. Insight and judgment seems to be limited, but improving. Impulses are well controlled. LABORATORY DATA: Labs reviewed. Most recent was from today. Coagulation reviewed. Chemistry reviewed. Urinalysis reviewed. Microbiology reviewed. Coagulase negative Staphylococcus in blood. Medical team notes reviewed. The patient was diagnosed with severe sepsis secondary to incarcerated hernia with small bowel obstruction and abdominal wall cellulitis, coagulase-negative staphylococcus bacteremia, acute kidney injuries, metabolic acidosis, Crohn's disease, susac disease, hypoalbuminemia, transaminitis, rhabdomyolysis. MEDICATIONS: Reviewed. The patient is on Norvasc, Augmentin, Wellbutrin will be started 75 mg daily, Pepcid, hydralazine, magnesium sulfate, morphine, prednisone and Sonata 5 mg at the nighttime. IMPRESSION: History of depression, rule out mood disorder due to general medical condition. PLAN: Started Wellbutrin, pt responded well on this medication in the past Sonata at the nighttime as needed. We will continue current management and current medications. We will follow up and advise accordingly. Supportive therapy and empathic listening provided. Should you have any questions, give me a call back. Thank you very much for letting me participate in care of your patient. Brandie Schaefer MD [facility]
--- NOTE | 2018-07-06 15:45 | CP.PCM.PCO ---
Physician Communication Note - Physician Communication Note Physician Communication Note: per PmD maybe cleared by tomm for DC, to CEE if tolerating advanced diet
--- NOTE | 2018-07-06 20:06 | CP.PCM.PN ---
Subjective - Date & Time of Evaluation Date of Evaluation: 07/06/18 Time of Evaluation: 20:03 - Subjective Subjective: S: 52 year old male presents with cough with blood clot mixed with white and black sputum O: HEENT: tongue red from blood clot with moist mucosa Heart: RRR Lungs: CTA bilaterally Abdomen: NT/ND A and P: At this time, will order CBC Q6 and CMP to monitor hemoglobin and electrolytes. Will order one time zofran for nausea. Objective - Vital Signs/Intake and Output Vital Signs (last 24 hours): Temp Pulse Resp BP Pulse Ox 97.9 F 94 H 18 123/83 95 07/06/18 17:41 07/06/18 18:00 07/06/18 17:41 07/06/18 17:41 07/06/18 06:00 Intake and Output: 07/06/18 07/07/18 18:59 06:59 Intake Total 1080 Output Total 2800 Balance -1720 - Medications Medications: Current Medications Amlodipine Besylate (Norvasc) 10 mg PO DAILY [facility] Last Admin: 07/06/18 09:40 Dose: 10 mg Amoxicillin/Clavulanate Potassium (Augmentin 875 Mg-125 Mg Tab) 1 tab PO Q12 [facility]; Protocol Bupropion HCl (Wellbutrin) 75 mg PO DAILY [facility] Famotidine (Pepcid) 20 mg PO 1000,2200 [facility] Last Admin: 07/06/18 09:40 Dose: 20 mg Hydralazine HCl (Apresoline) 10 mg PO QID PRN PRN Reason: For SBP>160 Morphine Sulfate (Morphine) 2 mg IVP Q4H PRN PRN Reason: Pain, severe (8-10) Last Admin: 07/06/18 01:17 Dose: 2 mg Prednisone (Prednisone Tab) 5 mg PO DAILY [facility] Last Admin: 07/06/18 09:40 Dose: 5 mg Zaleplon (Sonata) 5 mg PO HS PRN PRN Reason: Insomnia Last Admin: 07/04/18 23:20 Dose: 5 mg - Labs Labs: 07/06/18 11:19 07/06/18 11:19 PT 18.2 SECONDS (9.4-12.5) H 07/01/18 08:50 INR 1.61 07/01/18 08:50 APTT 52.2 Seconds (26.9-38.3) H 07/01/18 08:50
[2018-07-06 22:26] LABS: BASO # 0.02 K/mm3 (0.0-2.0); BASO % 0.1 % (0.0-3.0); EOS # 0.1 (0.0-0.7); EOS % 0.4 % (1.5-5.0); HEMOGLOBIN 12.9 g/dL (14.0-18.0); LYMPH # 1.4 (1.2-3.4); LYMPH % 10.4 % (22.0-35.0); MEAN CELL VOLUME 92.8 fl (80.0-105.0); MEAN CORPUSCULAR HGB CONC 33.4 g/dl (31.0-37.0); MEAN PLATELET VOLUME 10.1 fl (7.0-11.0); MONO # 0.7 (0.1-0.6); MONO % 5.1 % (1.0-6.0); RBC 4.16 10^6/uL (3.5-6.1); RED CELL DISTRIBUTION WIDTH 14.2 % (11.5-14.5); WHITE BLOOD COUNT 13.7 10^3/uL (4.5-11.0)
[2018-07-06 22:35] LABS: ALB/GLOB RATIO 0.8 (1.1-1.8); ALBUMIN 3.5 g/dL (3.0-4.8); CALCIUM 8.7 mg/dL (8.4-10.5); INR 1.91; PARTIAL THROMBOPLASTIN TIME 31.2 Seconds (26.9-38.3); PROTHROMBIN TIME 21.2 SECONDS (9.4-12.5)
--- NOTE | 2018-07-06 23:09 | PN ---
DATE: 07/06/2018 SUBJECTIVE: The patient is seen lying in bed. He is awake. He is alert. He denies any abdominal pain. He denies any nausea or vomiting. PHYSICAL EXAMINATION: GENERAL: Elderly male lying in bed. VITAL SIGNS: Blood pressure 148/74, heart rate 87, respiratory rate 18, and temperature 98.6. HEENT: Normocephalic and atraumatic. Positive pallor. NECK: Supple. No JVD. LUNGS: Bilateral equal air entry, bilateral equal expansion. CARDIAC: S1 and S2. Regular rate and rhythm. No murmur. No rub. ABDOMEN: Distended, soft, multiple scars, left lower quadrant colostomy. EXTREMITIES: 2+ pitting edema. INTAKE AND OUTPUT: 1210/3250. LABORATORY DATA: WBC 9.7, hemoglobin 12, hematocrit 37, and platelets 146. Sodium 138, potassium 4.6, chloride 108, CO2 of 22, BUN 69, creatinine 0.5, glucose 123, calcium 8.3, phosphorus 3.8, magnesium 1.7, and total bili 1.7. AST 49, ALT 59, and albumin 3.2. Blood cultures, no growth. Urine culture, no growth. CURRENT MEDICATIONS: Morphine, amlodipine 10, Pepcid, prednisone, Protonix, Sonata, Wellbutrin, Flagyl 500 every 8 hours, magnesium sulfate 1 g given this morning, and Zosyn 3.375 every 12 hours. ASSESSMENT: 1. Acute kidney injury nicely resolving, excellent urine output. 2. Acute tubular necrosis secondary to rhabdomyolysis/sepsis/component of prerenal azotemia also. 3. Partial small-bowel obstruction. 4. History of Crohn's disease. 5. History of Susac syndrome with cerebral vasculitis. 6. Hypomagnesemia. 7. History of hypogammaglobulinemia. 8. History of depression. PLAN: 1. Push p.o. fluids. 2. Advance diet. 3. Avoid nephrotoxins. 4. Continue antibiotics as per ID recommendations. 5. Dose all antibiotics for creatinine clearance about 30 mL/minute. 6. Expect renal parameters to return to baseline over the next 48 hours. Cat Rice MD [facility] # [id number]
[2018-07-07] MEDS: Amoxicillin-Clav 875-125 mg Tab PO SCH ×3 (00:50→21:40)
[2018-07-07 02:25] LABS: BASO # 0.01 K/mm3 (0.0-2.0); BASO % 0.1 % (0.0-3.0); EOS # 0.1 (0.0-0.7); EOS % 0.4 % (1.5-5.0); HEMOGLOBIN 13.1 g/dL (14.0-18.0); LYMPH # 1.3 (1.2-3.4); LYMPH % 10.6 % (22.0-35.0); MEAN CELL VOLUME 93.4 fl (80.0-105.0); MEAN CORPUSCULAR HEMOGLOBIN 30.9 pg (25.0-35.0); MEAN CORPUSCULAR HGB CONC 33.1 g/dl (31.0-37.0); MONO # 0.6 (0.1-0.6); MONO % 4.5 % (1.0-6.0); RBC 4.24 10^6/uL (3.5-6.1); RED CELL DISTRIBUTION WIDTH 14.2 % (11.5-14.5); WHITE BLOOD COUNT 12.5 10^3/uL (4.5-11.0)
[2018-07-07 06:45] LABS: HEMOGLOBIN 12.2 g/dL (14.0-18.0); MEAN CELL VOLUME 93.6 fl (80.0-105.0); MEAN CORPUSCULAR HGB CONC 32.1 g/dl (31.0-37.0); RBC 4.06 10^6/uL (3.5-6.1); RED CELL DISTRIBUTION WIDTH 14.2 % (11.5-14.5); WHITE BLOOD COUNT 12.8 10^3/uL (4.5-11.0)
[2018-07-07 07:02] LABS: ALB/GLOB RATIO 0.8 (1.1-1.8); ALBUMIN 3.3 g/dL (3.0-4.8); CALCIUM 8.6 mg/dL (8.4-10.5)
--- NOTE | 2018-07-07 07:28 | CP.PCM.PN ---
<Fede Gaston - Last Filed: 07/07/18 15:17> Subjective - Date & Time of Evaluation Date of Evaluation: 07/07/18 Time of Evaluation: 09:00 - Subjective Subjective: Infectious disease progress note: Patient seen and examined at bedside. No acute events overnight. had an episode of cough and hemoptysis yesterday. No fevers. 12 point ROS performed and negative unless stated above. Objective - Vital Signs/Intake and Output Vital Signs (last 24 hours): Temp Pulse Resp BP Pulse Ox 98.8 F 94 H 20 131/80 97 07/07/18 05:47 07/07/18 05:47 07/07/18 05:47 07/07/18 05:47 07/07/18 05:47 Intake and Output: 07/07/18 07/07/18 06:59 18:59 Intake Total 1560 Output Total 4400 Balance -2840 - Medications Medications: Current Medications Amlodipine Besylate (Norvasc) 10 mg PO DAILY [facility] Last Admin: 07/06/18 09:40 Dose: 10 mg Amoxicillin/Clavulanate Potassium (Augmentin 875 Mg-125 Mg Tab) 1 tab PO Q12 [facility]; Protocol Last Admin: 07/07/18 00:50 Dose: 1 tab Bupropion HCl (Wellbutrin) 75 mg PO DAILY [facility] Famotidine (Pepcid) 20 mg PO 1000,2200 [facility] Last Admin: 07/06/18 22:06 Dose: 20 mg Hydralazine HCl (Apresoline) 10 mg PO QID PRN PRN Reason: For SBP>160 Morphine Sulfate (Morphine) 2 mg IVP Q4H PRN PRN Reason: Pain, severe (8-10) Last Admin: 07/06/18 01:17 Dose: 2 mg Pantoprazole Sodium (Protonix Inj) 40 mg IVP Q12 [facility] Last Admin: 07/06/18 22:06 Dose: 40 mg Prednisone (Prednisone Tab) 5 mg PO DAILY [facility] Last Admin: 07/06/18 09:40 Dose: 5 mg Zaleplon (Sonata) 5 mg PO HS PRN PRN Reason: Insomnia Last Admin: 07/06/18 22:06 Dose: 5 mg - Labs Labs: 07/07/18 06:11 07/07/18 06:11 PT 21.2 SECONDS (9.4-12.5) H 07/06/18 22:23 INR 1.91 07/06/18 22:23 APTT 31.2 Seconds (26.9-38.3) 07/06/18 22:23 - Constitutional Appears: No Acute Distress - Eye Exam Eye Exam: EOMI - ENT Exam ENT Exam: Mucous Membranes Moist - Respiratory Exam Respiratory Exam: Clear to Ausculation Bilateral. absent: Rales, Wheezes - Cardiovascular Exam Cardiovascular Exam: Tachycardia, REGULAR RHYTHM, +S1, +S2 - GI/Abdominal Exam GI & Abdominal Exam: Soft. absent: Distended, Tenderness - Neurological Exam Neurological Exam: Alert, Awake Assessment and Plan - Assessment and Plan (Free Text) Assessment: Severe sepsis secondary to incarcerated hernia with small bowel obstruction and abdominal wall cellulitis Coag negative staph bacteremia likely a contamination Acute kidney injury, improving Metabolic acidosis Crohn's disease Susac syndrome Hypogammaglobulinemia Transaminitis Rhabdomyolysis, improving wbc of 12.8, likely 2/2 steroids Discontinue with Zosyn day 5 Upon discharge can d/c with Augmentin 875mg PO BID x today day 2 to complete 10 days of therapy Follow-up septic work-up - coag negative staph bacteremia likely a contamination x 1 bottle, repeat cx neg F/u GI recs for hemoptysis F/u echo - neg for vegetations Follow-up nephrology, surgery, and cardiology recommendations Continue to monitor for any changes Case and plan to be reviewed and discussed with Dr. Clay <Ned Clay - Last Filed: 07/07/18 22:39> Objective - Vital Signs/Intake and Output Vital Signs (last 24 hours): Temp Pulse Resp BP Pulse Ox 98.1 F 91 H 18 135/77 97 07/07/18 17:44 07/07/18 17:44 07/07/18 17:44 07/07/18 17:44 07/07/18 17:44 Intake and Output: 07/07/18 07/08/18 18:59 06:59 Intake Total 1414 Output Total 1405 Balance 9 - Medications Medications: Current Medications Amlodipine Besylate (Norvasc) 10 mg PO DAILY [facility] Last Admin: 07/07/18 10:12 Dose: 10 mg Amoxicillin/Clavulanate Potassium (Augmentin 875 Mg-125 Mg Tab) 1 tab PO Q12 [facility]; Protocol Last Admin: 07/07/18 21:40 Dose: 1 tab Bupropion HCl (Wellbutrin) 75 mg PO DAILY [facility] Last Admin: 07/07/18 10:13 Dose: 75 mg Famotidine (Pepcid) 20 mg PO 1000,2200 [facility] Last Admin: 07/07/18 21:40 Dose: 20 mg Hydralazine HCl (Apresoline) 10 mg PO QID PRN PRN Reason: For SBP>160 Morphine Sulfate (Morphine) 2 mg IVP Q4H PRN PRN Reason: Pain, severe (8-10) Last Admin: 07/07/18 20:21 Dose: 2 mg Pantoprazole Sodium (Protonix Inj) 40 mg IVP Q12 [facility] Last Admin: 07/07/18 21:40 Dose: 40 mg Prednisone (Prednisone Tab) 5 mg PO DAILY [facility] Last Admin: 07/07/18 10:13 Dose: 5 mg Zaleplon (Sonata) 5 mg PO HS [facility] Last Admin: 07/07/18 21:40 Dose: 5 mg - Labs Labs: 07/07/18 06:11 07/07/18 06:11 PT 21.2 SECONDS (9.4-12.5) H 07/06/18 22:23 INR 1.91 07/06/18 22:23 APTT 31.2 Seconds (26.9-38.3) 07/06/18 22:23 Attending/Attestation - Attestation I have personally seen and examined this patient.: Yes I have fully participated in the care of the patient.: Yes I have reviewed all pertinent clinical information, including history, physical exam and plan: Yes
--- NOTE | 2018-07-07 07:53 | CP.PCM.PN ---
Subjective - Date & Time of Evaluation Date of Evaluation: 07/07/18 Time of Evaluation: 06:45 - Subjective Subjective: Awake, alert, no distress, lying in bed Reason for consultation and follow up: Cardiac evaluation of syncopal episode, history of Crohn's disease, extensive abdominal surgery Seen and examined by me and Dr. Herndon Objective - Vital Signs/Intake and Output Vital Signs (last 24 hours): Temp Pulse Resp BP Pulse Ox 98.8 F 94 H 20 131/80 97 07/07/18 05:47 07/07/18 05:47 07/07/18 05:47 07/07/18 05:47 07/07/18 05:47 Intake and Output: 07/07/18 07/07/18 06:59 18:59 Intake Total 1560 Output Total 4400 Balance -2840 - Medications Medications: Current Medications Amlodipine Besylate (Norvasc) 10 mg PO DAILY [facility] Last Admin: 07/06/18 09:40 Dose: 10 mg Amoxicillin/Clavulanate Potassium (Augmentin 875 Mg-125 Mg Tab) 1 tab PO Q12 [facility]; Protocol Last Admin: 07/07/18 00:50 Dose: 1 tab Bupropion HCl (Wellbutrin) 75 mg PO DAILY [facility] Famotidine (Pepcid) 20 mg PO 1000,2200 [facility] Last Admin: 07/06/18 22:06 Dose: 20 mg Hydralazine HCl (Apresoline) 10 mg PO QID PRN PRN Reason: For SBP>160 Morphine Sulfate (Morphine) 2 mg IVP Q4H PRN PRN Reason: Pain, severe (8-10) Last Admin: 07/06/18 01:17 Dose: 2 mg Pantoprazole Sodium (Protonix Inj) 40 mg IVP Q12 [facility] Last Admin: 07/06/18 22:06 Dose: 40 mg Prednisone (Prednisone Tab) 5 mg PO DAILY [facility] Last Admin: 07/06/18 09:40 Dose: 5 mg Zaleplon (Sonata) 5 mg PO HS PRN PRN Reason: Insomnia Last Admin: 07/06/18 22:06 Dose: 5 mg - Labs Labs: 07/07/18 06:11 07/07/18 06:11 PT 21.2 SECONDS (9.4-12.5) H 07/06/18 22:23 INR 1.91 07/06/18 22:23 APTT 31.2 Seconds (26.9-38.3) 07/06/18 22:23 - Constitutional Appears: Non-toxic, No Acute Distress - Head Exam Head Exam: NORMAL INSPECTION, NORMOCEPHALIC - Eye Exam Eye Exam: Normal appearance Pupil Exam: NORMAL ACCOMODATION - Respiratory Exam Respiratory Exam: Decreased Breath Sounds, NORMAL BREATHING PATTERN - Cardiovascular Exam Cardiovascular Exam: REGULAR RHYTHM, +S1, +S2 - GI/Abdominal Exam GI & Abdominal Exam: Soft, Normal Bowel Sounds Additional comments: colostomy intact - Exam Additional comments: maguire catheter - Extremities Exam Extremities Exam: Full ROM, Normal Capillary Refill Additional comments: left upper port - Neurological Exam Neurological Exam: Alert, Awake - Psychiatric Exam Psychiatric exam: Normal Affect, Normal Mood - Skin Skin Exam: Dry, Normal Color, Warm Assessment and Plan - Assessment and Plan (Free Text) Assessment: A 52 year old male who came in the ER due to complaints of generalized w eakness. Brother found him on the floor and been there for two days too weak to get up. 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 Denies chest pain or shortness of breath. Troponin elevated due rhabdomyolysis and acute kidney injury. Rule out acute myocardial infarction. Echo done and showed LVEF 55%, trace MR, mild TR, RVSP 33mmHg, IVC normal. Bradycardia, hold betablocker. IV hydration. Positive blood culture. ID on consult. On IV antibio tics. CK level and creatinine trending down. No surgical intervention at this time per surgery. GI and Renal and Surgery on consult. Clinically improved, feels hungry. No further cardiac work up at this time. Discharge planning.Will discontinue telemetry. Plan: No distress, hungry Blood pressure stable Heart rate stable Cardiac status stable On Norvasc 10 mg daily, Prednisone 5 mg daily Continue current treatment Continue current medications ID on consult Continue antibiotics per ID No further cardiac work up at this time. Will discontinue telemetry Discharge planning. Fall precaution Will follow up Plan and treatment discussed with Dr. Herndon
--- NOTE | 2018-07-07 08:42 | CP.PCM.PN ---
<Robin Johnson - Last Filed: 07/07/18 18:14> Subjective - Date & Time of Evaluation Date of Evaluation: 07/07/18 Time of Evaluation: 08:20 - Subjective Subjective: PGY-4 GI Fellow Prog Note Pt lying in bed when seen this AM. States that abd pain stable, eating without issue and ostomy with good output. Frustrated that diet hasn't been advanced. Denied any hematemesis. 5 ROS negative other than stated above Objective - Vital Signs/Intake and Output Vital Signs (last 24 hours): Temp Pulse Resp BP Pulse Ox 98.8 F 94 H 20 131/80 97 07/07/18 05:47 07/07/18 05:47 07/07/18 05:47 07/07/18 05:47 07/07/18 05:47 Intake and Output: 07/07/18 07/07/18 06:59 18:59 Intake Total 1560 Output Total 4400 Balance -2840 - Medications Medications: Current Medications Amlodipine Besylate (Norvasc) 10 mg PO DAILY [facility] Last Admin: 07/06/18 09:40 Dose: 10 mg Amoxicillin/Clavulanate Potassium (Augmentin 875 Mg-125 Mg Tab) 1 tab PO Q12 [facility]; Protocol Last Admin: 07/07/18 00:50 Dose: 1 tab Bupropion HCl (Wellbutrin) 75 mg PO DAILY [facility] Famotidine (Pepcid) 20 mg PO 1000,2200 [facility] Last Admin: 07/06/18 22:06 Dose: 20 mg Hydralazine HCl (Apresoline) 10 mg PO QID PRN PRN Reason: For SBP>160 Morphine Sulfate (Morphine) 2 mg IVP Q4H PRN PRN Reason: Pain, severe (8-10) Last Admin: 07/06/18 01:17 Dose: 2 mg Pantoprazole Sodium (Protonix Inj) 40 mg IVP Q12 [facility] Last Admin: 07/06/18 22:06 Dose: 40 mg Prednisone (Prednisone Tab) 5 mg PO DAILY [facility] Last Admin: 07/06/18 09:40 Dose: 5 mg Zaleplon (Sonata) 5 mg PO HS PRN PRN Reason: Insomnia Last Admin: 07/06/18 22:06 Dose: 5 mg - Labs Labs: 07/07/18 06:11 07/07/18 06:11 PT 21.2 SECONDS (9.4-12.5) H 07/06/18 22:23 INR 1.91 07/06/18 22:23 APTT 31.2 Seconds (26.9-38.3) 07/06/18 22:23 - Constitutional Appears: No Acute Distress, Chronically Ill - Head Exam Head Exam: ATRAUMATIC, NORMAL INSPECTION - ENT Exam ENT Exam: Mucous Membranes Moist. absent: Mucous Membranes Dry - Respiratory Exam Respiratory Exam: NORMAL BREATHING PATTERN. absent: Accessory Muscle Use - GI/Abdominal Exam GI & Abdominal Exam: Distended, Soft. 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 Active treatment of acute renal failure and sepsis 2/2 bowel obstruction due to ventral incarcerated hernia. Plan: - Surgery managing diet, conservative management - Low suspicion for Crohn's flare; low dose pred and abx per surgery - Continue bowel regimen - Supportive care with pain control, IVFs Pt seen and examined with Dr. Okeefe; please see attestation for further recs/changes <Eric Okeefe V - Last Filed: 07/07/18 18:57> Objective - Vital Signs/Intake and Output Vital Signs (last 24 hours): Temp Pulse Resp BP Pulse Ox 98.1 F 91 H 18 135/77 97 07/07/18 17:44 07/07/18 17:44 07/07/18 17:44 07/07/18 17:44 07/07/18 17:44 Intake and Output: 07/07/18 07/07/18 06:59 18:59 Intake Total 1560 1414 Output Total 4400 1405 Balance -2840 9 - Medications Medications: Current Medications Amlodipine Besylate (Norvasc) 10 mg PO DAILY [facility] Last Admin: 07/07/18 10:12 Dose: 10 mg Amoxicillin/Clavulanate Potassium (Augmentin 875 Mg-125 Mg Tab) 1 tab PO Q12 [facility]; Protocol Last Admin: 07/07/18 10:12 Dose: 1 tab Bupropion HCl (Wellbutrin) 75 mg PO DAILY [facility] Last Admin: 07/07/18 10:13 Dose: 75 mg Famotidine (Pepcid) 20 mg PO 1000,2200 [facility] Last Admin: 07/07/18 10:13 Dose: 20 mg Hydralazine HCl (Apresoline) 10 mg PO QID PRN PRN Reason: For SBP>160 Morphine Sulfate (Morphine) 2 mg IVP Q4H PRN PRN Reason: Pain, severe (8-10) Last Admin: 07/06/18 01:17 Dose: 2 mg Pantoprazole Sodium (Protonix Inj) 40 mg IVP Q12 [facility] Last Admin: 07/07/18 10:13 Dose: 40 mg Prednisone (Prednisone Tab) 5 mg PO DAILY [facility] Last Admin: 07/07/18 10:13 Dose: 5 mg Zaleplon (Sonata) 5 mg PO HS [facility] - Labs Labs: 07/07/18 06:11 07/07/18 06:11 PT 21.2 SECONDS (9.4-12.5) H 07/06/18 22:23 INR 1.91 07/06/18 22:23 APTT 31.2 Seconds (26.9-38.3) 07/06/18 22:23 Attending/Attestation - Attestation I have personally seen and examined this patient.: Yes I have fully participated in the care of the patient.: Yes I have reviewed all pertinent clinical information, including history, physical exam and plan: Yes Notes (Text): This patient was seen and evaluated along with the GI fellow earlier. This is an addendum to the GI progress note dictated by the fellow. Patient does have a incarcerated hernia. The inflammatory changes appeared to have improved. The patient does not have a Crohn's flareup. Prednisone 5 mg twice a day will not help much in this patient at this point. Patient a history of a multiple surgeries for Crohn's. The timing of the surgery for this hernia will be left to the surgeon. We Will discuss with the Dr. López 07/07/18 18:54
--- NOTE | 2018-07-07 08:48 | CP.PCM.PN ---
Subjective - Date & Time of Evaluation Date of Evaluation: 07/07/18 Time of Evaluation: 06:55 - Subjective Subjective: General Surgery Pt seen and examined. Patient doing well, states he is hungry. Pain around ostomy site is same and mild. No ostomy output. He has expressed that he is "giving up." Objective - Vital Signs/Intake and Output Vital Signs (last 24 hours): Temp Pulse Resp BP Pulse Ox 98.8 F 94 H 20 131/80 97 07/07/18 05:47 07/07/18 05:47 07/07/18 05:47 07/07/18 05:47 07/07/18 05:47 Intake and Output: 07/07/18 07/07/18 06:59 18:59 Intake Total 1560 Output Total 4400 Balance -2840 - Medications Medications: Current Medications Amlodipine Besylate (Norvasc) 10 mg PO DAILY [facility] Last Admin: 07/06/18 09:40 Dose: 10 mg Amoxicillin/Clavulanate Potassium (Augmentin 875 Mg-125 Mg Tab) 1 tab PO Q12 [facility]; Protocol Last Admin: 07/07/18 00:50 Dose: 1 tab Bupropion HCl (Wellbutrin) 75 mg PO DAILY [facility] Famotidine (Pepcid) 20 mg PO 1000,2200 [facility] Last Admin: 07/06/18 22:06 Dose: 20 mg Hydralazine HCl (Apresoline) 10 mg PO QID PRN PRN Reason: For SBP>160 Morphine Sulfate (Morphine) 2 mg IVP Q4H PRN PRN Reason: Pain, severe (8-10) Last Admin: 07/06/18 01:17 Dose: 2 mg Pantoprazole Sodium (Protonix Inj) 40 mg IVP Q12 [facility] Last Admin: 07/06/18 22:06 Dose: 40 mg Prednisone (Prednisone Tab) 5 mg PO DAILY [facility] Last Admin: 07/06/18 09:40 Dose: 5 mg Zaleplon (Sonata) 5 mg PO HS PRN PRN Reason: Insomnia Last Admin: 07/06/18 22:06 Dose: 5 mg - Labs Labs: 07/07/18 06:11 07/07/18 06:11 PT 21.2 SECONDS (9.4-12.5) H 07/06/18 22:23 INR 1.91 07/06/18 22:23 APTT 31.2 Seconds (26.9-38.3) 07/06/18 22:23 - Constitutional Appears: Non-toxic, No Acute Distress - Head Exam Head Exam: ATRAUMATIC, NORMOCEPHALIC - Eye Exam Eye Exam: EOMI. absent: Scleral icterus - Respiratory Exam Respiratory Exam: NORMAL BREATHING PATTERN. absent: Respiratory Distress - GI/Abdominal Exam GI & Abdominal Exam: Distended (mild), Soft, Tenderness (over L ventral hernia). absent: Firm, Guarding, Rigid, Rebound Additional comments: stoma pink midline scar Trace erythema over L ventral hernia improved - Extremities Exam Extremities Exam: Normal Capillary Refill. absent: Calf Tenderness - Back Exam Back Exam: absent: CVA tenderness (L), CVA tenderness (R) - Neurological Exam Neurological Exam: Alert, Awake, Oriented x3 - Psychiatric Exam Psychiatric exam: Depressed - Skin Skin Exam: Dry, Warm Assessment and Plan - Assessment and Plan (Free Text) Assessment: 52M with incarcerated ventral hernia (improving), crohns disease, Susac syndrome Plan: continue liquid diet pain control continue to monitor for further ostomy output continue antibiotics, flagyl for crohns flare Low dose steroid for crohns flare Will D/W Dr. Naif Shook PGY4
--- NOTE | 2018-07-07 09:25 | RAD ---
Date of service: 07/06/2018 HISTORY: r/o infiltrate COMPARISON: 07/01/2018 TECHNIQUE: 1 view obtained. FINDINGS: LUNGS: No active pulmonary disease. PLEURA: No significant pleural effusion identified, no pneumothorax apparent. CARDIOVASCULAR: No aortic atherosclerotic calcification present. Normal cardiac size. No pulmonary vascular congestion. OSSEOUS STRUCTURES: No significant abnormalities. VISUALIZED UPPER ABDOMEN: Normal. OTHER FINDINGS: Left-sided central line terminates in the right atrium IMPRESSION: No active disease.
--- NOTE | 2018-07-07 09:28 | CP.PCM.PN ---
<Roger Sarah - Last Filed: 07/07/18 09:24> Subjective - Date & Time of Evaluation Date of Evaluation: 07/06/18 Time of Evaluation: 09:24 - Subjective Subjective: Heme/onc progress note - Tyrel Patient seen and examined at bedside with no acute overnight events; patient still upset about his medical condition Objective - Vital Signs/Intake and Output Vital Signs (last 24 hours): Temp Pulse Resp BP Pulse Ox 98.8 F 94 H 20 131/80 97 07/07/18 05:47 07/07/18 05:47 07/07/18 05:47 07/07/18 05:47 07/07/18 05:47 Intake and Output: 07/07/18 07/07/18 06:59 18:59 Intake Total 1560 Output Total 4400 Balance -2840 - Medications Medications: Current Medications Amlodipine Besylate (Norvasc) 10 mg PO DAILY [facility] Last Admin: 07/06/18 09:40 Dose: 10 mg Amoxicillin/Clavulanate Potassium (Augmentin 875 Mg-125 Mg Tab) 1 tab PO Q12 [facility]; Protocol Last Admin: 07/07/18 00:50 Dose: 1 tab Bupropion HCl (Wellbutrin) 75 mg PO DAILY [facility] Famotidine (Pepcid) 20 mg PO 1000,2200 [facility] Last Admin: 07/06/18 22:06 Dose: 20 mg Hydralazine HCl (Apresoline) 10 mg PO QID PRN PRN Reason: For SBP>160 Morphine Sulfate (Morphine) 2 mg IVP Q4H PRN PRN Reason: Pain, severe (8-10) Last Admin: 07/06/18 01:17 Dose: 2 mg Pantoprazole Sodium (Protonix Inj) 40 mg IVP Q12 [facility] Last Admin: 07/06/18 22:06 Dose: 40 mg Prednisone (Prednisone Tab) 5 mg PO DAILY [facility] Last Admin: 07/06/18 09:40 Dose: 5 mg Zaleplon (Sonata) 5 mg PO HS PRN PRN Reason: Insomnia Last Admin: 07/06/18 22:06 Dose: 5 mg - Labs Labs: 07/07/18 06:11 07/07/18 06:11 PT 21.2 SECONDS (9.4-12.5) H 07/06/18 22:23 INR 1.91 07/06/18 22:23 APTT 31.2 Seconds (26.9-38.3) 07/06/18 22:23 - Constitutional Appears: Well - Head Exam Head Exam: ATRAUMATIC, NORMAL INSPECTION, NORMOCEPHALIC - Eye Exam Eye Exam: EOMI, Normal appearance, PERRL Pupil Exam: NORMAL ACCOMODATION, PERRL - ENT Exam ENT Exam: Mucous Membranes Moist, Normal Exam - Neck Exam Neck Exam: Full ROM, Normal Inspection. absent: Lymphadenopathy - Respiratory Exam Respiratory Exam: Clear to Ausculation Bilateral, NORMAL BREATHING PATTERN - Cardiovascular Exam Cardiovascular Exam: REGULAR RHYTHM, +S1, +S2. absent: Murmur - GI/Abdominal Exam GI & Abdominal Exam: Soft, Normal Bowel Sounds. absent: Tenderness - Extremities Exam Extremities Exam: Full ROM, Normal Capillary Refill, Normal Inspection. absent: Joint Swelling, Pedal Edema - Back Exam Back Exam: NORMAL INSPECTION - Neurological Exam Neurological Exam: Alert, Awake, CN II-XII Intact, Normal Gait, Oriented x3 - Psychiatric Exam Psychiatric exam: Normal Affect, Normal Mood - Skin Skin Exam: Dry, Intact, Normal Color, Warm Assessment and Plan - Assessment and Plan (Free Text) Assessment: 52 M with pertinent history of Susac and Crohn's under ICU management for severe rhabdomyolysis and SETH. Patient has a colostomy bag from active colitis and has not been able to have a reversal. With regards to his active assessments, patient's SETH is likely 2/2 ATN from rhabdomyolysis. Rhabdo is improving, SETH is improving. Per discussion with java engineer Dr. Rice, the ATN will take some time to resolve. Patient's I/O are improving. With respect to sepsis, patient was afebrile overnight; one tube of blood showed coag neg staphylococcus, but repeat blood cultures are negative. Spoke to surgical team regarding patient's status and plan - per Dr. Painter, patient's hernia should be reduced manually, diet advanced to full liquid, and patient can be discharged to [facility] or TCU if he is tolerating diet. We will watch patient closely. Plan - Continue with IVF; discontinue bicarb drip - Continue with Zosyn for sepsis - Continue steroids, solu-medrol - Continue with pepcid for GI ppx - No current surgical intervention - No new neuro or psych recommendations re: neuropathy or SI/HI - Per ID, patient could be discharged with PO ABx if CT A/P was negative - however, in light of new findings, will await further recommendations - Nephro input noted; will continue IVF as noted above <Levi López P - Last Filed: 07/07/18 14:17> Objective - Vital Signs/Intake and Output Vital Signs (last 24 hours): Temp Pulse Resp BP Pulse Ox 97.9 F 91 H 20 126/73 97 07/07/18 12:00 07/07/18 12:00 07/07/18 12:00 07/07/18 12:00 07/07/18 05:47 Intake and Output: 07/07/18 07/07/18 06:59 18:59 Intake Total 1560 Output Total 4400 Balance -2840 - Medications Medications: Current Medications Amlodipine Besylate (Norvasc) 10 mg PO DAILY [facility] Last Admin: 07/07/18 10:12 Dose: 10 mg Amoxicillin/Clavulanate Potassium (Augmentin 875 Mg-125 Mg Tab) 1 tab PO Q12 [facility]; Protocol Last Admin: 07/07/18 10:12 Dose: 1 tab Bupropion HCl (Wellbutrin) 75 mg PO DAILY [facility] Last Admin: 07/07/18 10:13 Dose: 75 mg Famotidine (Pepcid) 20 mg PO 1000,2200 [facility] Last Admin: 07/07/18 10:13 Dose: 20 mg Hydralazine HCl (Apresoline) 10 mg PO QID PRN PRN Reason: For SBP>160 Morphine Sulfate (Morphine) 2 mg IVP Q4H PRN PRN Reason: Pain, severe (8-10) Last Admin: 07/06/18 01:17 Dose: 2 mg Pantoprazole Sodium (Protonix Inj) 40 mg IVP Q12 [facility] Last Admin: 07/07/18 10:13 Dose: 40 mg Prednisone (Prednisone Tab) 5 mg PO DAILY [facility] Last Admin: 07/07/18 10:13 Dose: 5 mg Zaleplon (Sonata) 5 mg PO HS [facility] - Labs Labs: 07/07/18 06:11 07/07/18 06:11 PT 21.2 SECONDS (9.4-12.5) H 07/06/18 22:23 INR 1.91 07/06/18 22:23 APTT 31.2 Seconds (26.9-38.3) 07/06/18 22:23 Attending/Attestation - Attestation I have personally seen and examined this patient.: Yes I have fully participated in the care of the patient.: Yes I have reviewed all pertinent clinical information, including history, physical exam and plan: Yes
--- NOTE | 2018-07-07 12:43 | PN ---
DATE: 07/07/2018 SUBJECTIVE: The patient is a 52-year-old male with reported history of depression and anxiety. The patient has multiple medical issues. Please see medical team note for more detailed information. Psych consult was called for evaluation of depressive symptoms. Please see previous note for more detailed information. Finally, the patient's family brought medication list. The patient was on Paxil 10 mg at the morning time. The patient also was on amitriptyline 10 mg at the nighttime. This service writer would not recommend to continue that medication because Paxil could give upset stomach and also the patient was depressed on that medication and amitriptyline is a very old and conventional medication and potentially could give a lot of side effects for the patient. Going back to the patient's presentation, the patient presented to be alert, pleasant patient and deemed to be mildly irritable and annoyed. The patient was complaining that he is sick for past 20 years and he is tired of that. The patient denied any thoughts of harming himself, but reported to feel overwhelmed. The patient denied hearing voices, denied seeing things, denied any paranoia. The patient does not appear to be psychotic. PHYSICAL EXAMINATION: VITAL SIGNS: Reviewed. Temperature 98.8, pulse 94, blood pressure 131/80, respiration 26 and saturation is 97. MEDICATIONS: Reviewed. The patient is on Norvasc, Augmentin, Wellbutrin was started 75 mg daily yesterday because the patient responded very well on that medication in the past. The patient also is on hydralazine, morphine, Protonix, prednisone, and Sonata. LABORATORY DATA: Labs reviewed. White blood cells 12.8 today, hemoglobin and hematocrit 12.2 and 38 respectively. Blood gas reviewed. Chemistry reviewed. Urinalysis reviewed. Microbiology reviewed. MENTAL STATUS EXAM: The patient presented to be alert, oriented, pleasant, and cooperative. Mood described as depressed because of the medical issues. Affect is irritable and annoyed. Thought process was coherent and goal-directed. Thought content, the patient denied visual, auditory or tactile hallucinations. Denied paranoid ideations. The patient does not present to be psychotic or agitated. Insight and judgment limited but improving. Impulses are well controlled. IMPRESSION: Rule out mood disorder due to general medical condition, rule out major depressive disorder. In regard of medical issues, the patient was diagnosed with sepsis due to Staphylococcus in blood. The patient was diagnosed with small bowel obstruction, abdominal wall cellulitis, coagulase-negative Staphylococcus bacteremia, acute kidney injury, metabolic acidosis, Susac disease, hypoalbuminemia, transaminitis also rhabdomyolysis and many more. PLAN: Continue current management. Continue current medications. This service writer would ask Dr. Marte to follow up on this patient. Wellbutrin should be continued. Sonata should be continued. The patient tolerated those medications very well in the past. We will followup and advise accordingly. Should you have any questions, give me a call back. Thank you very much for letting me participate in care of your patient. Brandie Schaefer MD
--- NOTE | 2018-07-07 12:55 | CP.PCM.PCO ---
Physician Communication Note - Physician Communication Note Physician Communication Note: pt.tolerared full liquid,no pain,min.output from ostomy,adv diet as per sx.
[2018-07-07] MEDS: Morphine 2 mg/ml ISec IVP PRN (20:21)
--- NOTE | 2018-07-07 21:16 | PN ---
DATE: 07/07/2018 SUBJECTIVE: The patient is seen lying in bed. He is awake. He is alert. He denies any abdominal pain. He denies any nausea or vomiting. PHYSICAL EXAMINATION: GENERAL: Middle-aged male, lying in bed. VITAL SIGNS: Blood pressure 126/73, heart rate 91, respiratory rate 20, temperature 97.9. HEENT: Normocephalic, atraumatic. Positive pallor. NECK: Supple. No JVD. LUNGS: Bilateral equal entry. No rales. No rhonchi. CARDIAC: S1, S2. Regular rate and rhythm. No murmur. No rub. ABDOMEN: Obese, distended, soft, multiple scars, ventral hernia, left lower quadrant colostomy. EXTREMITIES: 1+ edema. INTAKE AND OUTPUT: 1560/4400. LABORATORY DATA: WBC 12.8, hemoglobin 12.2, hematocrit 38, platelets 204. Sodium 137, potassium 4.8, chloride 109, CO2 of 19, BUN 56, creatinine 2.8, glucose 113, calcium 8.6, magnesium 1.7. CURRENT MEDICATIONS: Morphine, amlodipine, Pepcid, prednisone, Protonix. ASSESSMENT: 1. Resolving acute kidney injury. 2. Small bowel obstruction. 3. Ventral hernia. 4. History of Crohn disease/colostomy. 5. History of Susac syndrome with cerebral vasculitis, hearing loss. 6. History of hypogammaglobulinemia. 7. Acute rhabdomyolysis, resolving. PLAN: 1. Push p.o. fluids. 2. Advance diet. 3. Monitor urine output. 4. Avoid nephrotoxins. Cat Rice MD
--- NOTE | 2018-07-07 21:24 | PN ---
DATE: 07/07/2018 This is [facility] on the Telemetry floor. For Dr. López. SUBJECTIVE: The patient is a 52-year-old male, seen on the Telemetry floor, having been transferred out of the Intensive Care Unit after the patient's acute renal failure, showed dramatic improvement after treatment by Dr. Rice, Marketing Account [employer] with patient anxious for possible revision of his colostomy as per surgical consultants. We will advance his diet today with subacute rehab planned possibly for tomorrow as possible. OBJECTIVE/PHYSICAL EXAMINATION: VITAL SIGNS: Temperature 98.1, pulse 91, respirations 20, blood pressure 135/77, with a pulse ox of 97%. HEENT: Unremarkable. Tongue is moist. NECK: Supple. HEART: Regular rate. LUNGS: Clear. ABDOMEN: Viable colostomy. EXTREMITIES: No edema. SKIN: Warm and dry. NEUROLOGIC: Awake and alert with decreased hearing. LABORATORY DATA: Patient's labs were done. White blood cell count 12.8, hemoglobin 12.3, hematocrit of 38, and platelet count of 204,000. Metabolic panel showing a BUN of 56 and creatinine of 2.8 today. Chloride 109. Nonfasting glucose of 113. ASSESSMENT: For this patient is that of acute renal failure, now improved, Susac syndrome, Crohn's disease history, colostomy, hearing loss, hypogammaglobulinemia, rhabdomyolysis, sepsis, abdominal wall cellulitis. PLAN: For this patient is as above with advancing of the diet and transfer to subacute rehab as tolerated. Radhames Hackett MD
[2018-07-08] MEDS: Morphine 2 mg/ml ISec IVP PRN (01:28)
--- NOTE | 2018-07-08 02:18 | CP.PCM.DIS ---
<Roger Sarah - Last Filed: 07/11/18 12:03> Provider - Provider Date of Admission: 07/01/18 11:07 Attending physician: Sergio López MD Consults: 07/01/18 09:53 Gastroenterology Consult Stat Comment: Consulting Provider: Eric Okeefe V Consulting Physician: Eric Okeefe V Reason for Consult: GI issues Infectious Disease Consult Stat Comment: Consulting Provider: Ned Clay Consulting Physician: Ned Clay Reason for Consult: WBC Nephrology Consult Stat Comment: Consulting Provider: Cat Rice Consulting Physician: Cat Rice Reason for Consult: STEH 07/01/18 13:12 Consult [Physician Consult] Routine Comment: Consulting Provider: Curt Tyson Consulting Physician: Curt Tyson Reason for Consult: ARF, Sepsis 07/01/18 15:20 Social Work Referral Routine Comment: d/c plan Physician Instructions: Reason For Exam: assess 07/01/18 16:13 Case Management Referral Routine Comment: Physician Instructions: Reason For Exam: Reason for Referral: Discharge Planning 07/01/18 18:29 Nursing Referral for Wound Care Routine Comment: Physician Instructions: Reason For Exam: wound consult 07/01/18 20:02 Cardiology Consult Routine Comment: Consulting Provider: Shea Herndon Consulting Physician: Shea Herndon Reason for Consult: Syncopal event 07/03/18 08:17 Psychiatry Consult Routine Comment: Consulting Provider: Brandie Schaefer Consulting Physician: Brandie Schaefer Reason for Consult: suicidal thoughts - nihilism 07/03/18 18:11 General Surgery Consult Routine Comment: Consulting Provider: Alex Disla Consulting Physician: Alex Disla Reason for Consult: 2nd opinion Podiatry Consult Routine Comment: Consulting Provider: Serena Quijano Consulting Physician: Serena Quijano Reason for Consult: Patient known to you 07/03/18 18:23 Neurology Consult Routine Comment: Consulting Provider: Bernardo Mora Consulting Physician: Bernardo Moar Reason for Consult: Patient known to you; neuropathy Time Spent in preparation of Discharge (in minutes): 45 Hospital Course - Lab Results Lab Results: Micro Results 07/02/18 15:00 Blood Blood Culture - Final NO GROWTH AFTER 5 DAYS 07/02/18 15:00 Blood Gram Stain - Final TEST NOT PERFORMED 07/02/18 14:30 Blood Blood Culture - Final NO GROWTH AFTER 5 DAYS 07/02/18 14:30 Blood Gram Stain - Final TEST NOT PERFORMED 07/01/18 09:10 Blood Blood Culture - Final NO GROWTH AFTER 5 DAYS 07/01/18 09:10 Blood Gram Stain - Final TEST NOT PERFORMED 07/01/18 18:40 Urine Random Urine Culture - Final No Growth (<1,000 CFU/ML) 07/01/18 08:50 Blood S.aureus & Coag-Neg Staph PNA FISH - Final 07/01/18 08:50 Blood Blood Culture - Final Coagulase Neg Staphylococcus 07/01/18 08:50 Blood Gram Stain - Final 07/01/18 13:51 Naris MRSA Culture (Admit) - Final MRSA NOT DETECTED Most Recent Lab Values WBC 12.8 10^3/uL (4.5-11.0) H 07/07/18 06:11 RBC 4.06 10^6/uL (3.5-6.1) 07/07/18 06:11 Hgb 12.2 g/dL (14.0-18.0) L 07/07/18 06:11 Hct 38.0 % (42.0-52.0) L 07/07/18 06:11 MCV 93.6 fl (80.0-105.0) 07/07/18 06:11 MCH 30.0 pg (25.0-35.0) 07/07/18 06:11 MCHC 32.1 g/dl (31.0-37.0) 07/07/18 06:11 RDW 14.2 % (11.5-14.5) 07/07/18 06:11 Plt Count 204 10^3/uL (120.0-450.0) 07/07/18 06:11 MPV 10.0 fl (7.0-11.0) 07/07/18 06:11 Neut % (Auto) 84.4 % (50.0-68.0) H 07/07/18 02:05 Lymph % (Auto) 10.6 % (22.0-35.0) L 07/07/18 02:05 Hardee % (Auto) 4.5 % (1.0-6.0) 07/07/18 02:05 Eos % (Auto) 0.4 % (1.5-5.0) L 07/07/18 02:05 Baso % (Auto) 0.1 % (0.0-3.0) 07/07/18 02:05 Lymph # (Auto) 1.3 (1.2-3.4) 07/07/18 02:05 Hardee # (Auto) 0.6 (0.1-0.6) 07/07/18 02:05 Eos # (Auto) 0.1 (0.0-0.7) 07/07/18 02:05 Baso # (Auto) 0.01 K/mm3 (0.0-2.0) 07/07/18 02:05 Absolute Neuts (auto) 10.57 (1.4-6.5) H 07/07/18 02:05 PT 21.2 SECONDS (9.4-12.5) H 07/06/18 22:23 INR 1.91 07/06/18 22:23 APTT 31.2 Seconds (26.9-38.3) 07/06/18 22:23 pCO2 40 mm/Hg (35-45) 07/04/18 05:20 pO2 60.0 mm/Hg (80-100) L 07/04/18 05:20 HCO3 31.9 mmol/L (21-28) H 07/04/18 05:20 ABG pH 7.51 (7.35-7.45) H 07/04/18 05:20 ABG Total CO2 33.1 mmol.L (22-28) H 07/04/18 05:20 ABG O2 Saturation 94.1 % (95-98) L 07/04/18 05:20 ABG O2 Content 13.6 ML/dl (15-23) L 07/04/18 05:20 ABG Base Excess 8.2 mmol/L (-2.0-3.0) H 07/04/18 05:20 ABG Hemoglobin 10.5 g/dL (11.7-17.4) L 07/04/18 05:20 ABG Carboxyhemoglobin 1.9 % (0.5-1.5) H 07/04/18 05:20 POC ABG HHb (Measured) 5.7 % (0-5) H 07/04/18 05:20 ABG Methemoglobin 0.7 % (0.0-3.0) 07/04/18 05:20 ABG O2 Capacity 14.5 mL/dl (16-24) L 07/04/18 05:20 ABG Potassium 5.4 mmol/L (3.6-5.2) H 07/01/18 17:40 VBG pH 7.47 (7.32-7.43) H 07/03/18 06:05 VBG pCO2 46.0 (40-60) 07/03/18 06:05 VBG HCO3 33.5 mmol/l (21-28) H 07/03/18 06:05 VBG Total CO2 34.9 mmol.L (22-28) H 07/03/18 06:05 VBG O2 Sat (Calc) 81.8 % (40-65) H 07/03/18 06:05 VBG Base Excess 8.6 mmol/L (0.0-2.0) H 07/03/18 06:05 VBG Potassium 4.7 mmol/L (3.6-5.2) 07/03/18 06:05 Hgb O2 Saturation 91.7 % (95.0-98.0) L 07/04/18 05:20 Sodium 139.0 mmol/L (132-148) 07/03/18 06:05 Chloride 99.0 mmol/L (98-107) 07/03/18 06:05 Glucose 177 mg/dl (75-110) H 07/03/18 06:05 Lactate 1.7 mmol/L (0.7-2.1) 07/03/18 06:05 FiO2 32.0 % 07/04/18 05:20 Crit Value Called To Toña estrella rn ccu 07/01/18 14:00 Crit Value Called By Adri 07/01/18 14:00 Blood Gas Notified Time 1415 07/01/18 14:00 Sodium 137 mmol/L (132-148) 07/07/18 06:11 Potassium 4.8 mmol/L (3.6-5.0) 07/07/18 06:11 Chloride 109 mmol/L (98-107) H 07/07/18 06:11 Carbon Dioxide 19 mmol/L (21-33) L 07/07/18 06:11 Anion Gap 14 (10-20) 07/07/18 06:11 BUN 56 mg/dL (7-21) H 07/07/18 06:11 Creatinine 2.8 mg/dl (0.8-1.5) H 07/07/18 06:11 Est GFR ( Amer) 07/07/18 06:11 Est GFR (Non-Af Amer) 07/07/18 06:11 POC Glucose (mg/dL) 257 mg/dL (65-110) H 07/07/18 21:13 Random Glucose 113 mg/dL (70-110) H 07/07/18 06:11 Calcium 8.6 mg/dL (8.4-10.5) 07/07/18 06:11 Phosphorus 3.8 mg/dL (2.5-4.5) 07/06/18 11:19 Magnesium 1.7 mg/dL (1.7-2.2) 07/07/18 06:11 Total Bilirubin 1.2 mg/dL (0.2-1.3) 07/07/18 06:11 AST 39 U/L (17-59) 07/07/18 06:11 ALT 43 U/L (7-56) 07/07/18 06:11 Alkaline Phosphatase 81 U/L (38-126) 07/07/18 06:11 Total Creatine Kinase 174 U/L (35-230) 07/06/18 11:19 CK-MB (CK-2) 4.2 ng/mL (0.0-3.6) H 07/04/18 11:40 CK-MB (CK-2) % 0.6 % (2.5-3.0) L 07/03/18 06:05 Myoglobin >8750 mcg/L (<=95) H 07/01/18 18:20 Troponin I 0.09 ng/mL 07/01/18 22:00 C-React Prot High Sens > 15.00 mg/L (1.00-3.00) H 07/01/18 08:50 NT-Pro-B Natriuret Pep 6170 pg/mL (0-450) H 07/01/18 08:50 Total Protein 7.5 g/dL (5.8-8.3) 07/07/18 06:11 Albumin 3.3 g/dL (3.0-4.8) 07/07/18 06:11 Globulin 4.2 gm/dL 07/07/18 06:11 Albumin/Globulin Ratio 0.8 (1.1-1.8) L 07/07/18 06:11 Arterial Blood Potassium 5.4 mmol/L (3.6-5.2) H 07/01/18 17:40 Venous Blood Potassium 4.7 mmol/L (3.6-5.2) 07/03/18 06:05 Urine Color Dark yellow (YELLOW) 07/01/18 18:40 Urine Appearance Slight-cloudy (CLEAR) 07/01/18 18:40 Urine pH 6.0 (4.7-8.0) 07/01/18 18:40 Ur Specific Hersey 1.025 (1.005-1.035) 07/01/18 18:40 Urine Protein >=300 mg/dL (<30 mg/dL) H 07/01/18 18:40 Urine Glucose (UA) Negative mg/dL (NEGATIVE) 07/01/18 18:40 Urine Ketones Negative mg/dL (NEGATIVE) 07/01/18 18:40 Urine Blood Large (NEGATIVE) H 07/01/18 18:40 Urine Nitrate Negative (NEGATIVE) 07/01/18 18:40 Urine Bilirubin Moderate (NEGATIVE) H 07/01/18 18:40 Urine Urobilinogen 0.2 E.U./dL (<1 E.U./dL) 07/01/18 18:40 Ur Leukocyte Esterase Negative Vane/uL (NEGATIVE) 07/01/18 18:40 Urine RBC 5 - 10 /hpf (0-2) H 07/01/18 18:40 Urine WBC 0 - 2 /hpf (0-6) 07/01/18 18:40 Ur Epithelial Cells None /hpf (0-5) 07/01/18 18:40 Urine Bacteria Few /hpf (NONE) 07/01/18 18:40 Hyaline Casts 0 - 2 /hpf (NONE) 07/01/18 18:40 Coarse Granular Casts Trace /hpf (NONE) 07/01/18 18:40 Urine Eosinophils Negative 07/02/18 02:53 Ur Random Creatinine 74 mg/dL 07/02/18 02:53 Ur Random Sodium 87 meq/L 07/02/18 02:53 - Hospital Course Hospital Course: HPI on Day of Admission: 52 M with past medical history of Crohn's disease s/p colostomy, Susac syndrome, psoriasis, cerebral vasculitis with bilateral hearing loss, depression presents to the ED after being found down on the ground. Patient is currently disoriented, so much of the history is gathered from previous documentation and from brother who found him this morning. Last known contact with patient was evening by sister, when patient stated on the phone that he was not feeling well. Patient was afebrile but tachycardic upon presentation to ED. Patient received Vancomycin x 1 dose, Cefepime x 1 dose, ~ 4 L NS; he does not remember how he ended up on the ground Hospital Course: Patient was worked up for sepsis but no source was found. Patient was evaluated for incarcerated hernia, but the bowels were not found to be incarcerated. Patient was found to have SETH from Rhabdomyolysis, which improved precipitously with IV hydration. Patient's diet was advanced and tolerated, and patient's overal clinical picture improved with hydration and steroids. Patient has been advised to follow up with Dr. Disla 4-6 weeks after discharge for evaluation of his hernia and possible reversal of his colostomy. Patient has further been advised to follow up with Dr. López in the office. Patient was deemed stable for discharge on the day of his discharge and his medications were continued. Discharge Exam - Head Exam Head Exam: ATRAUMATIC, NORMAL INSPECTION - Eye Exam Eye Exam: EOMI, Normal appearance, PERRL Pupil Exam: NORMAL ACCOMODATION, PERRL - Respiratory Exam Respiratory Exam: Clear to PA & Lateral, NORMAL BREATHING PATTERN, UNREMARKABLE - Cardiovascular Exam Cardiovascular Exam: REGULAR RHYTHM, RRR, +S1, +S2 - GI/Abdominal Exam GI & Abdominal Exam: Normal Bowel Sounds - Extremities Exam Extremities exam: full ROM, normal capillary refill - Neurological Exam Neurological exam: Alert, CN II-XII Intact, Normal Gait, Oriented x3, Reflexes Normal - Psychiatric Exam Psychiatric exam: Agitated, Normal Affect, Normal Mood - Skin Skin Exam: Dry, Intact, Normal Color, Warm Discharge Plan - Discharge Medications Prescriptions: traMADol [Ultram] 50 mg PO PRN PRN #1 tab PRN Reason: Pain, Moderate (4-7) - Follow Up Plan Condition: CRITICAL Disposition: TRANSF TO SNF Instructions: Sepsis in Adults, Acute Kidney Failure (DC) <Levi López P - Last Filed: 07/11/18 15:13> Provider - Provider Date of Admission: 07/01/18 11:07 Attending physician: Sergio López MD Consults: 07/01/18 09:53 Gastroenterology Consult Stat Comment: Consulting Provider: Eric Okeefe V Consulting Physician: Eric Okeefe V Reason for Consult: GI issues Infectious Disease Consult Stat Comment: Consulting Provider: Ned Clay Consulting Physician: Ned Clay Reason for Consult: WBC Nephrology Consult Stat Comment: Consulting Provider: Cat Rice Consulting Physician: Cat Rice Reason for Consult: SETH 07/01/18 13:12 Consult [Physician Consult] Routine Comment: Consulting Provider: Curt Tyson Consulting Physician: Curt Tyson Reason for Consult: ARF, Sepsis 07/01/18 15:20 Social Work Referral Routine Comment: d/c plan Physician Instructions: Reason For Exam: assess 07/01/18 16:13 Case Management Referral Routine Comment: Physician Instructions: Reason For Exam: Reason for Referral: Discharge Planning 07/01/18 18:29 Nursing Referral for Wound Care Routine Comment: Physician Instructions: Reason For Exam: wound consult 07/01/18 20:02 Cardiology Consult Routine Comment: Consulting Provider: Shea Hernodn Consulting Physician: Shea Herndon Reason for Consult: Syncopal event 07/03/18 08:17 Psychiatry Consult Routine Comment: Consulting Provider: Brandie Schaefer Consulting Physician: Brandie Schaefer Reason for Consult: suicidal thoughts - nihilism 07/03/18 18:11 General Surgery Consult Routine Comment: Consulting Provider: Alex Disla Consulting Physician: Alex Disla Reason for Consult: 2nd opinion Podiatry Consult Routine Comment: Consulting Provider: Serena Quijano Consulting Physician: Serena Quijano Reason for Consult: Patient known to you 07/03/18 18:23 Neurology Consult Routine Comment: Consulting Provider: Bernardo Mora Consulting Physician: Bernardo Mora Reason for Consult: Patient known to you; neuropathy Hospital Course - Lab Results Lab Results: Micro Results 07/02/18 15:00 Blood Blood Culture - Final NO GROWTH AFTER 5 DAYS 07/02/18 15:00 Blood Gram Stain - Final TEST NOT PERFORMED 07/02/18 14:30 Blood Blood Culture - Final NO GROWTH AFTER 5 DAYS 07/02/18 14:30 Blood Gram Stain - Final TEST NOT PERFORMED 07/01/18 09:10 Blood Blood Culture - Final NO GROWTH AFTER 5 DAYS 07/01/18 09:10 Blood Gram Stain - Final TEST NOT PERFORMED 07/01/18 18:40 Urine Random Urine Culture - Final No Growth (<1,000 CFU/ML) 07/01/18 08:50 Blood S.aureus & Coag-Neg Staph PNA FISH - Final 07/01/18 08:50 Blood Blood Culture - Final Coagulase Neg Staphylococcus 07/01/18 08:50 Blood Gram Stain - Final 07/01/18 13:51 Naris MRSA Culture (Admit) - Final MRSA NOT DETECTED Most Recent Lab Values WBC 12.8 10^3/uL (4.5-11.0) H 07/07/18 06:11 RBC 4.06 10^6/uL (3.5-6.1) 07/07/18 06:11 Hgb 12.2 g/dL (14.0-18.0) L 07/07/18 06:11 Hct 38.0 % (42.0-52.0) L 07/07/18 06:11 MCV 93.6 fl (80.0-105.0) 07/07/18 06:11 MCH 30.0 pg (25.0-35.0) 07/07/18 06:11 MCHC 32.1 g/dl (31.0-37.0) 07/07/18 06:11 RDW 14.2 % (11.5-14.5) 07/07/18 06:11 Plt Count 204 10^3/uL (120.0-450.0) 07/07/18 06:11 MPV 10.0 fl (7.0-11.0) 07/07/18 06:11 Neut % (Auto) 84.4 % (50.0-68.0) H 07/07/18 02:05 Lymph % (Auto) 10.6 % (22.0-35.0) L 07/07/18 02:05 Hardee % (Auto) 4.5 % (1.0-6.0) 07/07/18 02:05 Eos % (Auto) 0.4 % (1.5-5.0) L 07/07/18 02:05 Baso % (Auto) 0.1 % (0.0-3.0) 07/07/18 02:05 Lymph # (Auto) 1.3 (1.2-3.4) 07/07/18 02:05 Hardee # (Auto) 0.6 (0.1-0.6) 07/07/18 02:05 Eos # (Auto) 0.1 (0.0-0.7) 07/07/18 02:05 Baso # (Auto) 0.01 K/mm3 (0.0-2.0) 07/07/18 02:05 Absolute Neuts (auto) 10.57 (1.4-6.5) H 07/07/18 02:05 PT 21.2 SECONDS (9.4-12.5) H 07/06/18 22:23 INR 1.91 07/06/18 22:23 APTT 31.2 Seconds (26.9-38.3) 07/06/18 22:23 pCO2 40 mm/Hg (35-45) 07/04/18 05:20 pO2 60.0 mm/Hg (80-100) L 07/04/18 05:20 HCO3 31.9 mmol/L (21-28) H 07/04/18 05:20 ABG pH 7.51 (7.35-7.45) H 07/04/18 05:20 ABG Total CO2 33.1 mmol.L (22-28) H 07/04/18 05:20 ABG O2 Saturation 94.1 % (95-98) L 07/04/18 05:20 ABG O2 Content 13.6 ML/dl (15-23) L 07/04/18 05:20 ABG Base Excess 8.2 mmol/L (-2.0-3.0) H 07/04/18 05:20 ABG Hemoglobin 10.5 g/dL (11.7-17.4) L 07/04/18 05:20 ABG Carboxyhemoglobin 1.9 % (0.5-1.5) H 07/04/18 05:20 POC ABG HHb (Measured) 5.7 % (0-5) H 07/04/18 05:20 ABG Methemoglobin 0.7 % (0.0-3.0) 07/04/18 05:20 ABG O2 Capacity 14.5 mL/dl (16-24) L 07/04/18 05:20 ABG Potassium 5.4 mmol/L (3.6-5.2) H 07/01/18 17:40 VBG pH 7.47 (7.32-7.43) H 07/03/18 06:05 VBG pCO2 46.0 (40-60) 07/03/18 06:05 VBG HCO3 33.5 mmol/l (21-28) H 07/03/18 06:05 VBG Total CO2 34.9 mmol.L (22-28) H 07/03/18 06:05 VBG O2 Sat (Calc) 81.8 % (40-65) H 07/03/18 06:05 VBG Base Excess 8.6 mmol/L (0.0-2.0) H 07/03/18 06:05 VBG Potassium 4.7 mmol/L (3.6-5.2) 07/03/18 06:05 Hgb O2 Saturation 91.7 % (95.0-98.0) L 07/04/18 05:20 Sodium 139.0 mmol/L (132-148) 07/03/18 06:05 Chloride 99.0 mmol/L (98-107) 07/03/18 06:05 Glucose 177 mg/dl (75-110) H 07/03/18 06:05 Lactate 1.7 mmol/L (0.7-2.1) 07/03/18 06:05 FiO2 32.0 % 07/04/18 05:20 Crit Value Called To Toña estrella rn ccu 07/01/18 14:00 Crit Value Called By Adri 07/01/18 14:00 Blood Gas Notified Time 1415 07/01/18 14:00 Sodium 137 mmol/L (132-148) 07/07/18 06:11 Potassium 4.8 mmol/L (3.6-5.0) 07/07/18 06:11 Chloride 109 mmol/L (98-107) H 07/07/18 06:11 Carbon Dioxide 19 mmol/L (21-33) L 07/07/18 06:11 Anion Gap 14 (10-20) 07/07/18 06:11 BUN 56 mg/dL (7-21) H 07/07/18 06:11 Creatinine 2.8 mg/dl (0.8-1.5) H 07/07/18 06:11 Est GFR ( Amer) 07/07/18 06:11 Est GFR (Non-Af Amer) 07/07/18 06:11 POC Glucose (mg/dL) 257 mg/dL (65-110) H 07/07/18 21:13 Random Glucose 113 mg/dL (70-110) H 07/07/18 06:11 Calcium 8.6 mg/dL (8.4-10.5) 07/07/18 06:11 Phosphorus 3.8 mg/dL (2.5-4.5) 07/06/18 11:19 Magnesium 1.7 mg/dL (1.7-2.2) 07/07/18 06:11 Total Bilirubin 1.2 mg/dL (0.2-1.3) 07/07/18 06:11 AST 39 U/L (17-59) 07/07/18 06:11 ALT 43 U/L (7-56) 07/07/18 06:11 Alkaline Phosphatase 81 U/L (38-126) 07/07/18 06:11 Total Creatine Kinase 174 U/L (35-230) 07/06/18 11:19 CK-MB (CK-2) 4.2 ng/mL (0.0-3.6) H 07/04/18 11:40 CK-MB (CK-2) % 0.6 % (2.5-3.0) L 07/03/18 06:05 Myoglobin >8750 mcg/L (<=95) H 07/01/18 18:20 Troponin I 0.09 ng/mL 07/01/18 22:00 C-React Prot High Sens > 15.00 mg/L (1.00-3.00) H 07/01/18 08:50 NT-Pro-B Natriuret Pep 6170 pg/mL (0-450) H 07/01/18 08:50 Total Protein 7.5 g/dL (5.8-8.3) 07/07/18 06:11 Albumin 3.3 g/dL (3.0-4.8) 07/07/18 06:11 Globulin 4.2 gm/dL 07/07/18 06:11 Albumin/Globulin Ratio 0.8 (1.1-1.8) L 07/07/18 06:11 Arterial Blood Potassium 5.4 mmol/L (3.6-5.2) H 07/01/18 17:40 Venous Blood Potassium 4.7 mmol/L (3.6-5.2) 07/03/18 06:05 Urine Color Dark yellow (YELLOW) 07/01/18 18:40 Urine Appearance Slight-cloudy (CLEAR) 07/01/18 18:40 Urine pH 6.0 (4.7-8.0) 07/01/18 18:40 Ur Specific Hersey 1.025 (1.005-1.035) 07/01/18 18:40 Urine Protein >=300 mg/dL (<30 mg/dL) H 07/01/18 18:40 Urine Glucose (UA) Negative mg/dL (NEGATIVE) 07/01/18 18:40 Urine Ketones Negative mg/dL (NEGATIVE) 07/01/18 18:40 Urine Blood Large (NEGATIVE) H 07/01/18 18:40 Urine Nitrate Negative (NEGATIVE) 07/01/18 18:40 Urine Bilirubin Moderate (NEGATIVE) H 07/01/18 18:40 Urine Urobilinogen 0.2 E.U./dL (<1 E.U./dL) 07/01/18 18:40 Ur Leukocyte Esterase Negative Vane/uL (NEGATIVE) 07/01/18 18:40 Urine RBC 5 - 10 /hpf (0-2) H 07/01/18 18:40 Urine WBC 0 - 2 /hpf (0-6) 07/01/18 18:40 Ur Epithelial Cells None /hpf (0-5) 07/01/18 18:40 Urine Bacteria Few /hpf (NONE) 07/01/18 18:40 Hyaline Casts 0 - 2 /hpf (NONE) 07/01/18 18:40 Coarse Granular Casts Trace /hpf (NONE) 07/01/18 18:40 Urine Eosinophils Negative 07/02/18 02:53 Ur Random Creatinine 74 mg/dL 07/02/18 02:53 Ur Random Sodium 87 meq/L 07/02/18 02:53 Attending/Attestation - Attestation I have personally seen and examined this patient.: Yes I have fully participated in the care of the patient.: Yes I have reviewed all pertinent clinical information, including history, physical exam and plan: Yes
--- NOTE | 2018-07-08 02:54 | CP.PCM.PN ---
Subjective - Date & Time of Evaluation Date of Evaluation: 07/08/18 Time of Evaluation: 02:52 - Subjective Subjective: SURGERY NOTE FOR DR. WALLIS 52M seen and examined at bedside. Patient resting comfortably, pain tolerable. ostomy output. Set up to go to [facility] in AM. Objective - Vital Signs/Intake and Output Vital Signs (last 24 hours): Temp Pulse Resp BP Pulse Ox 98.1 F 91 H 18 135/77 97 07/07/18 17:44 07/07/18 17:44 07/07/18 17:44 07/07/18 17:44 07/07/18 17:44 Intake and Output: 07/07/18 07/08/18 18:59 06:59 Intake Total 1414 Output Total 1405 Balance 9 - Medications Medications: Current Medications Amlodipine Besylate (Norvasc) 10 mg PO DAILY [facility] Last Admin: 07/07/18 10:12 Dose: 10 mg Amoxicillin/Clavulanate Potassium (Augmentin 875 Mg-125 Mg Tab) 1 tab PO Q12 [facility]; Protocol Last Admin: 07/07/18 21:40 Dose: 1 tab Bupropion HCl (Wellbutrin) 75 mg PO DAILY [facility] Last Admin: 07/07/18 10:13 Dose: 75 mg Famotidine (Pepcid) 20 mg PO 1000,2200 [facility] Last Admin: 07/07/18 21:40 Dose: 20 mg Hydralazine HCl (Apresoline) 10 mg PO QID PRN PRN Reason: For SBP>160 Morphine Sulfate (Morphine) 2 mg IVP Q4H PRN PRN Reason: Pain, severe (8-10) Last Admin: 07/08/18 01:28 Dose: 2 mg Pantoprazole Sodium (Protonix Inj) 40 mg IVP Q12 [facility] Last Admin: 07/07/18 21:40 Dose: 40 mg Prednisone (Prednisone Tab) 5 mg PO DAILY [facility] Last Admin: 07/07/18 10:13 Dose: 5 mg Zaleplon (Sonata) 5 mg PO HS [facility] Last Admin: 07/07/18 21:40 Dose: 5 mg - Labs Labs: 07/07/18 06:11 07/07/18 06:11 PT 21.2 SECONDS (9.4-12.5) H 07/06/18 22:23 INR 1.91 07/06/18 22:23 APTT 31.2 Seconds (26.9-38.3) 07/06/18 22:23 - Constitutional Appears: Non-toxic, No Acute Distress - Respiratory Exam Respiratory Exam: NORMAL BREATHING PATTERN - GI/Abdominal Exam GI & Abdominal Exam: Soft. absent: Firm, Guarding, Rigid Additional comments: ostomy patent hernia content same size - Skin Skin Exam: Dry, Intact, Normal Color, Warm Assessment and Plan - Assessment and Plan (Free Text) Assessment: 52M with incarcerated ventral hernia (improving), crohns flare(improving) Plan: - reg diet - monitor further output - monitor hernia - set to go to subacute rehab Further recs per Dr. Naif Christensen, PGY3
[2018-07-08 05:55] VITALS: O2SAT 99
--- NOTE | 2018-07-08 07:37 | CP.PCM.PN ---
Subjective - Date & Time of Evaluation Date of Evaluation: 07/08/18 Time of Evaluation: 06:40 - Subjective Subjective: No distress, lying in bed, awake Reason for consultation and follow up: Cardiac evaluation of syncopal episode, history of Crohn's disease, extensive abdominal surgery Seen and examined by me and Dr. Herndon Objective - Vital Signs/Intake and Output Vital Signs (last 24 hours): Temp Pulse Resp BP Pulse Ox 98.6 F 85 20 132/78 99 07/08/18 05:30 07/08/18 05:30 07/08/18 05:30 07/08/18 05:30 07/08/18 05:30 Intake and Output: 07/08/18 07/08/18 06:59 18:59 Intake Total 360 Balance 360 - Medications Medications: Current Medications Amlodipine Besylate (Norvasc) 10 mg PO DAILY [facility] Last Admin: 07/07/18 10:12 Dose: 10 mg Amoxicillin/Clavulanate Potassium (Augmentin 875 Mg-125 Mg Tab) 1 tab PO Q12 [facility]; Protocol Last Admin: 07/07/18 21:40 Dose: 1 tab Bupropion HCl (Wellbutrin) 75 mg PO DAILY [facility] Last Admin: 07/07/18 10:13 Dose: 75 mg Famotidine (Pepcid) 20 mg PO 1000,2200 [facility] Last Admin: 07/07/18 21:40 Dose: 20 mg Hydralazine HCl (Apresoline) 10 mg PO QID PRN PRN Reason: For SBP>160 Morphine Sulfate (Morphine) 2 mg IVP Q4H PRN PRN Reason: Pain, severe (8-10) Last Admin: 07/08/18 01:28 Dose: 2 mg Pantoprazole Sodium (Protonix Inj) 40 mg IVP Q12 [facility] Last Admin: 07/07/18 21:40 Dose: 40 mg Prednisone (Prednisone Tab) 5 mg PO DAILY [facility] Last Admin: 07/07/18 10:13 Dose: 5 mg Zaleplon (Sonata) 5 mg PO HS [facility] Last Admin: 07/07/18 21:40 Dose: 5 mg - Labs Labs: 07/07/18 06:11 07/07/18 06:11 PT 21.2 SECONDS (9.4-12.5) H 07/06/18 22:23 INR 1.91 07/06/18 22:23 APTT 31.2 Seconds (26.9-38.3) 07/06/18 22:23 - Constitutional Appears: Non-toxic, No Acute Distress - Head Exam Head Exam: NORMAL INSPECTION, NORMOCEPHALIC - Eye Exam Eye Exam: Normal appearance Pupil Exam: NORMAL ACCOMODATION - ENT Exam ENT Exam: Mucous Membranes Moist, Normal Exam - Respiratory Exam Respiratory Exam: Decreased Breath Sounds, NORMAL BREATHING PATTERN - Cardiovascular Exam Cardiovascular Exam: REGULAR RHYTHM, +S1, +S2 - GI/Abdominal Exam GI & Abdominal Exam: Soft, Normal Bowel Sounds Additional comments: colostomy - Extremities Exam Extremities Exam: Full ROM, Normal Capillary Refill Additional comments: left arm upper port - Neurological Exam Neurological Exam: Alert, Awake - Psychiatric Exam Psychiatric exam: Normal Affect, Normal Mood - Skin Skin Exam: Normal Color, Warm Assessment and Plan - Assessment and Plan (Free Text) Assessment: A 52 year old male who came in the ER due to complaints of generalized weakness. Brother found him on the floor and been there for two days too weak to get up. 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 Denies chest pain or shortness of breath. Troponin elevated due rhabdomyolysis and acute kidney injury. Rule out acute myocardial infarction. Echo done and showed LVEF 55%, trace MR, mild TR, RVSP 33mmHg, IVC normal. Bradycardia, hold betablocker. IV hydration. Positive blood culture. ID on consult. On oral antibiotics. No surgical intervention at this time per surgery. GI and Renal and Surgery on consult. Advance diet as tolerated. Clinically improved. Cardiac status stable. May discharge from cardiac standpoint. Possible discharge to rehab today. Plan: Clinically improved. Cardiac status stable. May discharge from cardiac standpoint. Possible discharge to rehab today. No distress, Blood pressure stable Heart rate stable On Norvasc 10 mg daily, Prednisone 5 mg daily Continue current treatment Continue current medications ID on consult Continue antibiotics per ID No further cardiac work up at this time. Follow up in office Plan and treatment discussed with Dr. Herndon
[2018-07-08] MEDS: Amoxicillin-Clav 875-125 mg Tab PO SCH (10:03)
[2018-07-08 12:25] VITALS: BP 145/63; PULSE 87; RESP 18; TEMP 98.3
--- NOTE | 2018-07-08 14:24 | PN ---
DATE: 07/08/2018 SUBJECTIVE: The patient is in bed in no acute distress, nontoxic. PHYSICAL EXAMINATION: VITAL SIGNS: On exam, temperature is 98, blood pressure is 120/70, respiratory rate of 16. HEENT: Unremarkable. NECK: Supple. HEART: Normal S1, S2. LUNGS: Decreased breath sounds. ABDOMEN: Soft. LABORATORY DATA: Reveals the patient's white count of 12,800 from yesterday and the chemistries are noted. Creatinine of 2.8. Microbiology is noted and review of orders reveals the patient to be on p.o. Augmentin. The patient is also on prednisone which could explain the leukocytosis. ASSESSMENT AND PLAN: This is a 52-year-old male with severe sepsis secondary to incarcerated hernia with small bowel obstruction and abdominal wall cellulitis with coag-negative staphylococcus bacteremia, most likely a contamination with acute kidney injury that is improving with metabolic acidosis, Crohn's disease and Susac syndrome, hypogammaglobulinemia, transaminitis. rhabdomyolysis improving complete with complete therapy with p.o. Augmentin x7 to 10 days. Today is day #3. Follow the WBCs and outpatient currently on prednisone. The patient is clinically stable. Ned Clay MD
--- NOTE | 2018-07-08 14:59 | CON ---
DATE: 07/08/2018 HISTORY OF PRESENT ILLNESS: The patient is a 52-year-old who psychiatry is following for depression and anxiety on the medical floor. Please refer to the medical team note for more detailed information regarding the patient's extensive medical issues of abdominal surgery related to Crohn's disease and complications. I reviewed Dr. Schaefer's consultation. The patient is at bedside. The patient appears to have been suffering from depression related to his medical issues. Hospitalizations are stressing him out; overwhelming him at times, breaking into tears; however, he denies that he wants to . He denies that he wants to take his own life. He wants to keep ongoing. He wants his medical issues to improve. He is not hopeless; however, he is not hopeful. He is coherent. There is no evidence of perceptional disturbance. He plans to continue taking his psychiatric medications. He is aware of the latency of them and is agreeable to small increase of Wellbutrin prior to his transfer to rehab. Denies any side effects from them. Generally, there have been no behavioral issues recently and he has been agreeable to medical team recommendations including rehab. Vital signs and labs reviewed. PSYCHIATRIC MEDICATIONS: Include Wellbutrin 75 mg daily and Sonata 5 mg at bedtime. IMPRESSION: Mood disorder due to general medical condition; rule out major depressive disorder, likely adjustment disorder with depression and anxiety. RECOMMENDATIONS: Wellbutrin will be continued; however, this provider will start Wellbutrin which can be more tolerable for the patient, Wellbutrin XL 150 mg daily and continue with Sonata 5 mg at bedtime scheduled. The patient is psychiatrically cleared. Jin Marte MD
--- NOTE | 2018-07-08 17:40 | CP.PCM.PN ---
Subjective - Date & Time of Evaluation Date of Evaluation: 07/08/18 Time of Evaluation: 10:00 - Subjective Subjective: Patient is doing well tolerating diet Objective - Vital Signs/Intake and Output Vital Signs (last 24 hours): Temp Pulse Resp BP Pulse Ox 98.3 F 87 18 145/63 99 07/08/18 12:00 07/08/18 12:00 07/08/18 12:00 07/08/18 12:00 07/08/18 05:30 Intake and Output: 07/08/18 07/08/18 06:59 18:59 Intake Total 360 Balance 360 - Labs Labs: 07/07/18 06:11 07/07/18 06:11 PT 21.2 SECONDS (9.4-12.5) H 07/06/18 22:23 INR 1.91 07/06/18 22:23 APTT 31.2 Seconds (26.9-38.3) 07/06/18 22:23 - Head Exam Head Exam: ATRAUMATIC, NORMOCEPHALIC - Eye Exam Eye Exam: EOMI, PERRL - ENT Exam ENT Exam: Mucous Membranes Moist - Neck Exam Neck Exam: Full ROM. absent: Lymphadenopathy - Respiratory Exam Respiratory Exam: Clear to Ausculation Bilateral. absent: Accessory Muscle Use, Rhonchi, Respiratory Distress - Cardiovascular Exam Cardiovascular Exam: REGULAR RHYTHM, +S1, +S2. absent: JVD - GI/Abdominal Exam GI & Abdominal Exam: absent: Soft, Tenderness Additional comments: Paracolostomy hernia site much improved soft nontender now colostomy working now - Neurological Exam Neurological Exam: Abnormal Gait, Alert, Oriented x3 Additional comments: Normally walks with a walker Assessment and Plan - Assessment and Plan (Free Text) Assessment: 1. Incarcerated hernia improved 2. Crohn's disease 3. Susac syndrome 4. GERD 5. Acute kidney injury significant improvement Plan: 1. Continue Pentasa 2. We will discuss with the director physical therapy regarding discontinuing prednisone 5 mg twice daily dose. Prednisone will not be effective at this dose in this patient as he does not have any Crohn's flareup now 3. Follow-up renal function. We will adjust the dose of the Pentasa We will discuss with the
--- NOTE | 2018-07-08 20:40 | DS ---
This is Andrew Bonilla's discharge summary. For Dr. López. SUMMARY: He was referred to discharge. Discharge summary done earlier today. We want to addend that the patient's discharge medications will include Augmentin 875 mg twice a day for 8 days as per the Infectious Disease senior product consultant. Otherwise, discharge summary as per resident. Radhames Hackett MD
[2018-07-09] MEDS ORDERED: buPROPion 150 mg/24 Hours XL Tab PO SCH (10:00)
--- NOTE | 2018-07-09 12:34 | PN ---
DATE: 07/08/2018 SUBJECTIVE: The patient is seen lying in bed. Awake, he is alert and comfortable. PHYSICAL EXAMINATION: GENERAL: Middle-aged male lying in bed. VITAL SIGNS: Blood pressure 145/63, heart rate 87, respiratory rate 18, temperature 98. HEENT: Normocephalic, atraumatic, positive pallor. NECK: Supple, no JVD. LUNGS: Bilateral equal air entry, bilaterally equal expansion. CARDIAC: S1, S2. Regular, rate and rhythm, no murmur, no rub. ABDOMEN: Distended, soft, positive hernia, positive left lower quadrant colostomy. EXTREMITIES: No lower extremity edema. INTAKE AND OUTPUT: 1774/1405. LABORATORY DATA: No new labs. MEDICATIONS: Augmentin, morphine, amlodipine 10, Pepcid 20, prednisone 5, Protonix 40, and Wellbutrin. ASSESSMENT: 1. Resolving acute kidney injury. 2. Acute rhabdomyolysis related acute tubular necrosis plus prerenal azotemia. 3. Partial small-bowel obstruction. 4. History of Crohn's disease. 5. History of Susac syndrome. PLAN: 1. No objection to discharge. 2. Repeat chemistry as outpatient next week. 3. Push p.o. fluids. 4. Monitor creatinine as outpatient, expected to come to down to baseline. Cat Rice MD
== END 2018-07-08 14:23 | DRG 871 ==
LOC: ED 08:22 → ERH 11:07 → CCU 13:14 → ICU 19:04 → 2RNO 07-05 14:12 → 2RSO 07-05 17:57
PROVIDERS: ADMIT Student in an Organized Health Care Education/Training Program; ATTEND Student in an Organized Health Care Education/Training Program
DX: A41.9 Sepsis, unspecified organism (principal); N17.0 Acute kidney failure with tubular necrosis; M62.82 Rhabdomyolysis; K50.90 Crohn's disease, unspecified, without complications; G93.49 Other encephalopathy; E87.4 Mixed disorder of acid-base balance; K43.3 Parastomal hernia with obstruction, without gangrene; D80.1 Nonfamilial hypogammaglobulinemia; K43.6 Other and unspecified ventral hernia with obstruction, without gangrene; I68.2 Cerebral arteritis in other diseases classified elsewhere; L03.311 Cellulitis of abdominal wall; E87.5 Hyperkalemia; R65.20 Severe sepsis without septic shock; F32.9 Major depressive disorder, single episode, unspecified; R74.0 Nonspecific elevation of levels of transaminase and lactic acid dehydrogenase [LDH]; L40.9 Psoriasis, unspecified; E11.40 Type 2 diabetes mellitus with diabetic neuropathy, unspecified; H91.8X2 Other specified hearing loss, left ear; F06.30 Mood disorder due to known physiological condition, unspecified; F41.9 Anxiety disorder, unspecified; G47.00 Insomnia, unspecified; E83.42 Hypomagnesemia; K21.9 Gastro-esophageal reflux disease without esophagitis; D64.9 Anemia, unspecified; E86.0 Dehydration; E66.9 Obesity, unspecified; Z68.32 Body mass index [BMI] 32.0-32.9, adult; Z93.3 Colostomy status; Z79.899 Other long term (current) drug therapy; Z91.81 History of falling; Z87.891 Personal history of nicotine dependence